=== PATIENT | male | born 1935 | race Caucasian/White ===

== ENCOUNTER 2016-03-11 05:32 | Outpatient (CLI) | payer MEDICARE, OTHER ==
[~2016-03-11] VITALS: Ht 180.3 cm; Wt 90.7 kg
[~2016-03-11 05:32] MED LIST: ASP81TEC PO; CLPD75T PO; DEXT1DRO7 OU; DORZ10DR19 OP; FAMO1TAB PO; GLUC-144 PO; HCT25T PO; HYDR-3812; IBUP-30 PO; LVT.088T PO; MELO-195 PO; METO100T5 PO; METO50TA7 PO; PRAV40TA PO; PRED5DRO17 OD; TERA2CAP13 PO; THYROXINE; TIMO10DR OS; [UNRECOGNIZED DRUG - OTHER] IO; [UNRECOGNIZED DRUG - OTHER] PO
--- OUTSIDE RECORDS SUMMARY | 2016-03-11 05:35 | XMS REPORT | Continuity of Care Document ---
Author Author [facility] Organization [facility] Address Unknown Phone Unavailable Care Team Providers Care Electrical Inspector Name Role Phone DREW MARTINEZ MD PCP Insurance Providers Payer Name Policy Number Subscriber Name Relationship Wps Medicare [id number] José Smith 18 Self / Same As Patient AETNA [id number] José Smith Self / Same As Patient Advance Directives Directive Response Recorded Date/Time Advance Directives Yes 08/25/15 11:45pm Health Care Power of Nuclear Plant Instrument Technician Yes 08/25/15 11:45pm Organ Donor Yes 08/25/15 11:45pm Resuscitation Status Full Code 08/25/15 11:45pm Chief Complaint and Reason for Visit Chief Complaint Eye Problems Reason for Visit [id number] Problems Active Problems Medical Problem Onset Date Status Chronic renal impairment 05/01/2013 Acute Postoperative bleeding from incision Unknown Acute Medications Current Home Medications Medication Dose Units Route Directions Days/Qty Instructions Start Date Terazosin Hcl 2 Mg 2 Mg Oral Daily 10/25/12 Aspirin 81 Mg 81 Mg Oral Daily 10/25/12 Levothyroxine Sodium (Levothroid) 88 Mcg 88 Mcg Oral Daily 04/30/13 Dorzolamide/Timolol 10 Ml 1 Drop Left Eye Twice A Day 04/30/13 Clopidogrel Bisulfate 75 Mg 75 Mg Oral Daily 06/18/13 Metoprolol Succinate (Toprol Xl) 100 Mg 100 Mg Oral Daily 06/18/13 Pravastatin Sodium 40 Mg 40 Mg Oral Daily 04/15/14 Dextran 70/Hypromellose 1 Each 1 Drop Each Eye Four Times Daily as needed for Dry Eyes 01/14/15 Prednisolone Acetate 5 Ml 1 Drop Right Eye Daily 01/21/15 Glucosamine Hcl/Chondr Mooney A Na 1 Each 1 Tab Oral Twice A Day Famotidine/Ca Carb/Mag Hydrox 1 Each 1 Tab.chew Oral Four Times Daily as needed for Indigestion 01/21/15 Hydrocodone/Acetaminophen 1 Each 30 08/26/15 Past Home Medications Medication Directions Ordered Status [L Thyroxine] , 0.05 Mg Daily 10/25/12 Discontinued Hydrochlorothiazide 25 Mg Tablet, 25 Mg Oral Daily 10/25/12 Discontinued Timolol Maleate/Dorzolam Hcl 10 Ml Drops, 10 Ml Ophthalmic 10/25/12 Discontinued Meloxicam (Mobic) 15 Mg Tablet, 1 Each Oral Daily 10/25/12 Discontinued Clopidogrel Bisulfate 75 Mg Tab, 75 Mg Oral Daily 05/01/13 Discontinued Metoprolol Succinate 50 Mg Tab, 50 Mg Oral Daily 05/01/13 Discontinued Ibuprofen 200 Mg Tablet, 400 Mg Oral Daily as needed for Pain 06/18/13 Discontinued [Bio-Richard] , 2 Tab Oral Daily 01/14/15 Discontinued [Prednisolene] , 1 Drop Intraoculr Daily 01/14/15 Discontinued Social History Social History Problem Response Recorded Date/Time Alcohol Use Occasionally Uses 08/25/2015 11:45pm Recreational Drug Use No 08/25/2015 11:45pm Recent Foreign Travel No 08/25/2015 11:57pm Recent Infectious Disease Exposure No 08/25/2015 11:45pm Hospitalization with Isolation Denies 08/25/2015 11:45pm Sexually Transmitted Disease No 08/25/2015 11:45pm HIV/AIDS No 08/25/2015 11:45pm Smoking Status Former Smoker 08/25/2015 11:45pm Do you dip or chew tobacco? No 08/25/2015 11:45pm Query Response Start Date Stop Date Smoking Status Former Smoker 03/06/1989 Hospital Discharge Instructions No hospital discharge instructions. Plan of Care Discharge Date 08/26/15 1:01am Disposition 01 HOME, SELF-CARE Condition at Discharge Improved Instructions/Education Provided NO INSTRUCTIONS GIVEN Prescriptions See Medication Section Referrals DREW MARTINEZ MD - Primary Care Physician Additional Instructions/Education Discontinue aspirin and Plavix until bleeding has completely stopped for at least several hours. Avoid mechanical disruption of the incision to encourage clotting of blood. Continue to use cool packs as previously directed. If bleeding is uncontrolled, apply direct gentle pressure with sterile gauze for 15-30 minutes. Return to care if bleeding is still uncontrolled. All discharge instructions reviewed with patient and/or family. Voiced understanding. Functional Status No functional status results. Allergies, Adverse Reactions, Alerts No known allergies. Immunizations Name Given Type Date of Pneumonia Vaccine 04/16/13 Historical Date of Influenza Vaccine 12/05/14 Historical Vital Signs Acute Vital Signs Vital Response Date/Time Temperature (Fahrenheit) 98.2 degrees F (97.6 - 99.5) 08/25/2015 11:45pm Temperature (Calculated Celsius) 36.78281 degrees C (36.4 - 37.5) 08/25/2015 11:45pm Pulse Rate (adult) 66 bpm (60 - 90) 08/26/2015 1:00am Respiratory Rate 18 bpm (12 - 24) 08/26/2015 1:00am O2 Sat by Pulse Oximetry 97 % (88 - 100) 08/26/2015 1:00am Blood Pressure 150/74 mm Hg 08/26/2015 1:00am Blood Pressure Mean 129 mm Hg 08/25/2015 11:45pm Pain Pain Intensity 0 08/25/2015 11:45pm Height (Feet) 5 feet 08/25/2015 11:45pm Height (Inches) 11 inches 08/25/2015 11:45pm Height (Calculated Centimeters) 180.087339 cm 08/25/2015 11:45pm Weight (Pounds) 180 pounds 08/25/2015 11:45pm Weight (Calculated Kilograms) 81.864096 kilograms 08/25/2015 11:45pm Height 5 ft 11 in Weight 180 lb Body Mass Index 25.1 kg/m^2 Results No known relevant diagnostic tests, laboratory data and/or discharge summary. Procedures No known history of procedures. Encounters Encounter Location Arrival/Admit Date Discharge/Depart Date Attending Provider Registered Emergency Room [facility] 08/25/15 11:58pm MARISOL ROSE MD Recent Diagnosis
== END 2016-03-11 12:26 ==
LOC: PREOP 05:32
PROVIDERS: ATTEND Internal Medicine
DX: Z01.818 Encounter for other preprocedural examination (principal); K92.1 Melena

== ENCOUNTER 2016-03-15 06:44 | Day surgery (SDC) | payer MEDICARE, OTHER ==
[~2016-03-15] VITALS: Ht 180.3 cm; Wt 90.7 kg
--- OUTSIDE RECORDS SUMMARY | 2016-03-15 06:48 | XMS REPORT | Continuity of Care Document ---
Author Author [facility] Organization [facility] Address Unknown Phone Unavailable Care Team Providers Care Hotel Maid Name Role Phone DREW MARTINEZ MD PCP Insurance Providers Payer Name Policy Number Subscriber Name Relationship Wps Medicare [id number] José Smith 18 Self / Same As Patient AETNA [id number] José Smith Self / Same As Patient Advance Directives Directive Response Recorded Date/Time Advance Directives Yes 08/25/15 11:45pm Health Care Power of Iron Plastic Bullet Maker Yes 08/25/15 11:45pm Organ Donor Yes 08/25/15 11:45pm Resuscitation Status Full Code 08/25/15 11:45pm Chief Complaint and Reason for Visit Chief Complaint Eye Problems Reason for Visit [id number] Problems Active Problems Medical Problem Onset Date [...] - 99.5) 08/25/2015 11:45pm Temperature (Calculated Celsius) 36.34106 degrees C (36.4 - 37.5) 08/25/2015 11:45pm [...] 11 inches 08/25/2015 11:45pm Height (Calculated Centimeters) 180.886463 cm 08/25/2015 11:45pm Weight (Pounds) 180 pounds 08/25/2015 11:45pm Weight (Calculated Kilograms) 81.074995 kilograms 08/25/2015 11:45pm Height 5 ft 11 in Weight 180 lb Body Mass Index 25.1 kg/m^2 Results No known relevant diagnostic tests, laboratory data and/or discharge summary. Procedures No known history of procedures. Encounters Encounter Location Arrival/Admit Date Discharge/Depart Date Attending Provider Registered Emergency Room [facility] 08/25/15 11:58pm MARISOL ROSE MD Recent Diagnosis
--- OUTSIDE RECORDS SUMMARY | 2016-03-15 06:48 | XMS REPORT | Continuity of Care Document ---
Author Author [facility] Organization [facility] Address Unknown Phone Unavailable Care Team Providers Care Product Test Engineer Name Role Phone DREW MARTINEZ MD PCP Insurance Providers Payer Name Policy Number Subscriber Name Relationship Wps Medicare [id number] José Smith 18 Self / Same As Patient AETNA [id number] José Smith Self / Same As Patient Advance Directives Directive Response Recorded Date/Time Advance Directives Yes 08/25/15 11:45pm Health Care Power of Glue Cook Yes 08/25/15 11:45pm Organ Donor Yes 08/25/15 11:45pm Resuscitation Status Full Code 08/25/15 11:45pm Chief Complaint and Reason for Visit Chief Complaint Eye Problems Reason for Visit [id number] Problems Active Problems Medical Problem Onset Date [...] - 99.5) 08/25/2015 11:45pm Temperature (Calculated Celsius) 36.96977 degrees C (36.4 - 37.5) 08/25/2015 11:45pm [...] 11 inches 08/25/2015 11:45pm Height (Calculated Centimeters) 180.479689 cm 08/25/2015 11:45pm Weight (Pounds) 180 pounds 08/25/2015 11:45pm Weight (Calculated Kilograms) 81.456819 kilograms 08/25/2015 11:45pm Height 5 ft 11 in Weight 180 lb Body Mass Index 25.1 kg/m^2 Results No known relevant diagnostic tests, laboratory data and/or discharge summary. Procedures No known history of procedures. Encounters Encounter Location Arrival/Admit Date Discharge/Depart Date Attending Provider Registered Emergency Room [facility] 08/25/15 11:58pm MARISOL ROSE MD Recent Diagnosis
--- NOTE | 2016-03-15 06:59 | Pre-Op Note & Conscious Sedat ---
Pre-Operative Progress Note H&P Reviewed The H&P was reviewed, patient examined and no changes noted. Date H&P Reviewed: Mar 15, 2016 Time H&P Reviewed: 06:58 Conscious Sedation Pre-Proced ASA Class: 2 Airway Mallampati Classification: ([place] appropriate class) I. II. III, IV Lungs Heart ASA score ASA 1: a normal healthy patient ASA 2: a patient with a mild systemic disease (mid diabetes, controlled hypertension, obesity ASA 3: a patient with a severe systemic disease that limits activity (angina , COPD, prior Myocardial infarction) ASA 4: a patient with an incapacitating disease that is a constant threat to life (CHF, renal failure) ASA 5: a moribund patient not expected to survive 24 hrs. (ruptured aneurysm) ASA 6: a declared brain patient whose organs are being harvested. For emergent operations, add the letter E after the classification Grade 2 Sedation Plan: Analgesia, Amnesia, Plan communicated to team members, Discussed options with patient/fam, Discussed risks with patient/fam Note The patient is an appropriate candidate to undergo the planned procedure, sedation, and anesthesia. The patient immediately re-assessed prior to indication. MAGDIEL MARTINEZ MD Mar 15, 2016 06:58
[2016-03-15] MEDS ORDERED: D5 LR IV SOLUTION 1,000 ML IV ONE (07:01)
[2016-03-15] MEDS ORDERED: MIDAZOLAM 2 MG/2 ML (VERSED) VIAL ONE ×2 (07:13)
[2016-03-15] MEDS ORDERED: HURRICAINE EXT TUBE (BENZOCAINE) ONE (07:14)
[2016-03-15] MEDS ORDERED: fentaNYL INJECTION 100 MCG/2 ML AMP ONE (07:14)
[2016-03-15] MEDS ORDERED: LIDOCAINE JELLY 2% (XYLOCAINE) 5 ML TUBE ONE (07:14)
[2016-03-15] MEDS ORDERED: NALOXONE 0.4 MG/ML 1 ML (NARCAN) VIAL IVP PRN (08:00)
[2016-03-15] MEDS ORDERED: HURRICAINE EXT TUBE (BENZOCAINE) XX PRN (08:00)
[2016-03-15] MEDS ORDERED: LIDOCAINE JELLY 2% (XYLOCAINE) 5 ML TUBE MM PRN (08:00)
[2016-03-15] MEDS ORDERED: FLUMAZENIL (ROMAZICON) 0.1 MG/ML 5 ML VIAL INJ PRN (08:00)
[2016-03-15] MEDS ORDERED: fentaNYL INJECTION 100 MCG/2 ML AMP IVP PRN (08:00)
[2016-03-15] MEDS ORDERED: D5 LR IV SOLUTION 1,000 ML IV SCH (08:00)
[2016-03-15] MEDS ORDERED: MIDAZOLAM 2 MG/2 ML (VERSED) VIAL IVP PRN (08:00)
[2016-03-15 08:01] VITALS: BP 175/95
[2016-03-15 08:15] VITALS: BP 118/69
[2016-03-15 08:45] VITALS: BP 144/94
[2016-03-15 09:00] VITALS: BP 144/94
--- NOTE | 2016-03-15 10:53 | PROCEDURE REPORT ---
PROCEDURE PHYSICIAN: MAGDIEL MARTINEZ DATE OF PROCEDURE: 03/15/2016 INDICATION FOR THE PROCEDURE: Melena with risk factors for ulceration including ulcerogenic medications Plavix, aspirin and Naprosyn. The patient was placed in the left lateral decubitus position. The endoscope was inserted in the oral cavity and under visualization the esophagus was intubated. The scope was passed down the esophagus, stomach, and second portion of the duodenum. Careful inspection was made as the endoscope was withdrawn. The patient tolerated the procedure well. FINDINGS: The proximal and midesophagus were unremarkable. The distal esophagus was proximally placed at 37 cm secondary to a small to moderate size hiatal hernia. Erythema was noted at the Z line with arcuate blood vessel dilatation, but no evidence for erosive esophagitis was noted. No evidence to suggest Rivers's change was noted. Considering his advanced age and medical comorbidities and biopsies from this location were not obtained. The cardia was unremarkable. Present in the fundus and antrum were patchy areas of erythema most suggestive of nonsteroidal gastropathy. No ulcerations were noted. A biopsy was obtained and submitted for Helicobacter and histopathology evaluation. The pylorus, the pyloric channel were unremarkable. Patchy areas of duodenal erythema without evidence for erosion or ulceration were noted. The second portion of the duodenum was unremarkable. No blood was noted in the upper GI tract but the patient had been off of aspirin and Plavix and Aleve for the past 5 days. ASSESSMENT: 1. 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 Considering that it has now been almost 3 years since his stent placement to reduce future risk for bleeding it was advised that the patient discontinue Plavix and discuss this further with his mine patrol. He was advised to abstain from nonsteroidal medication as well, and continue to monitor his stools. 2. Mild to moderate sized hiatal hernia without evidence for erosive esophagitis. Because of the need for ongoing aspirin considering the patient's age and frailty, he was advised that he take Pepcid 20 mg b.i.d. on a scheduled basis.Currently he takes it on a Prn basis In one week. I will set up IFOB stool screening. If it is positive on this regimen, we will then set up colonoscopy in the near future. If it is negative again considering age, performance status and medical comorbidity, we will hold off on colonoscopy recommendation. I thank you for the referral of this pleasant gentleman. Sincerely, Magdiel Martinez Job ID: [id number] Dictated Date: 03/15/2016 08:11:25 Switchbox Assembler Date: 03/15/2016 10:38:27 / юлия FREED
--- NOTE | 2016-03-15 10:56 | HISTORY AND PHYSICAL ---
DICTATING PHYSICIAN: Dr. Mckeon DATE OF ADMISSION: 03/15/2016 REFERRING PHYSICIAN: Dr. Baldwin INDICATION FOR THE REFERRAL: Melena Mr. Manjarrez is a 79-year-old white male who reports a 2 week history of intermittent melena. There were two says when it cleared up but then it resumed. He denies chest discomfort, dizziness, increased weakness and has noted no bright red blood per rectum. Risk factors for ulcer disease include aspirin and Plavix initiated in April 2013 after stent placement to proximal LAD lesion. He had repeat cardiac catheterization 2 months later for chest discomfort, but the stent was widely patent with only mild disease being noted elsewhere so medical management has persisted since that time with no recurrence of acute coronary syndrome. He was seen in Dr. Baldwin's office where a CBC was obtained. His hemoglobin was normal at 14 but stool was occult positive for blood. Additional history; he has been taking Aleve for leg pain for the past 2 months. PAST MEDICAL HISTORY: 1. Long-standing peripheral neuropathy. 2. He has a history of hyperlipidemia. 3. No known history of hypertension. 4. He is on thyroid replacement for hypothyroidism. 5. History of prostatism. MEDICATIONS: 1. Tamsulosin 0.4 mg the evening meal. 2. L-thyroxine 80 mcg daily. 3. 81 mg aspirin daily. 4. Clopidogrel 75 mg daily. 5. Metoprolol ER 100 mg daily. 6. Pravastatin 40 mg daily. 7. Aleve 220 mg b.i.d. 8. Lyrica 75 mg b.i.d. 9. He takes dorzolamide one drop each eye b.i.d. 10. Lotemax one drop right eye daily with artificial tears. PAST SURGICAL HISTORY: 1. Significant for left total knee replacement [place] [address] Cotto. 2. He had mastoidectomy 30 years ago. 3. Many years ago, had an episode of left endophthalmitis. 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 He had a 40 pack-year smoking history but quit in 1989 and reports rare social alcohol intake. In the past when working it had been heavier, but denies any history of alcohol use disorder. I had previously performed panendoscopy on him 10 years ago in March 2006. He had 2 small adenomatous polyps at that time and on EGD evaluation a small to moderate size hiatal hernia without evidence for erosive esophagitis or peptic ulcer disease at that time. FAMILY HISTORY: He is not aware of any family history for colon cancer or colon polyps or peptic ulcer disease. PHYSICAL EXAMINATION: Reveals an elderly white male, who appears to be in no acute distress. Blood pressure was 140/82, heart rate was 66 and regular. Weight at 201.6 pounds. 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 NECK: Revealed no JVD, adenopathy or bruits. He is a Mallampati class I pharyngeal configuration. Oral cavity and pharynx are clear. CHEST: Clear. CV: Reveals regular rate and rhythm without murmur, S3 or S4, although the heart tones are somewhat distant. ABDOMEN: Soft, supple without masses, organomegaly or tenderness. EXTREMITIES: Reveal no cyanosis, clubbing, or edema. ASSESSMENT: Melena confirmed by occult positive stool studies without anemia or hemodynamic instability at this time. He clearly has risk factors for silent ulcer disease including aspirin, Plavix and Aleve usage. As it has been nearly 3 years since his first and only cardiac stent placement, it was advised that he discontinue these 3 medications continuing his other medications unchanged. He was set-up for EGD on the with possible colonoscopy to follow. Prep instructions and questions were answered. Currently coronary artery disease, appears to be stable. In patient evaluation today a review of the electronic medical record, 45 minutes of care time was spent by myself with another 15 minutes of care time setting up EGD and undergoing prep instructions writing out instructions on medication discontinuance starting today as noted above. Resumption of antiplatelet therapy timing will be discussed after EGD evaluation. Thank you for the referral this pleasant gentleman. Sincerely, Rohan cMkeon Job ID: [id number] Dictated Date: 03/10/2016 17:53:00 Radiator Mechanic Date: 03/11/2016 10:41:39/юлия FREED
== END 2016-03-15 09:00 | disposition home or self-care (01) ==
LOC: SDC 06:44
PROVIDERS: ATTEND Internal Medicine
DX: K92.1 Melena (principal); K44.9 Diaphragmatic hernia without obstruction or gangrene; Z79.02 Long term (current) use of antithrombotics/antiplatelets; Z79.82 Long term (current) use of aspirin

== ENCOUNTER → 2016-08-02 | Outpatient (CLI) | payer MEDICARE, OTHER ==
--- NOTE | 2016-08-02 17:19 | Diagnostic Imaging Report ---
INDICATION: Difficulty walking. Bilateral leg pain. COMPARISON: None. FINDINGS: Static alignment of the thoracic spine is maintained. There is no significant anterolisthesis or retrolisthesis. There is no evidence of jumped facets. Vertebral body heights are maintained. There is no evidence of acute fracture. Evaluation of marrow signal demonstrates probable hemangioma within the inferior endplate of the T10 vertebral body. Otherwise, marrow signal is unremarkable. There is multilevel intervertebral disc height loss with anterior and posterior disc osteophyte complex formations. This does result in mild multilevel narrowing of the spinal canal. Thoracic cord, however, has normal appearance. There is no evidence of cord edema. No abnormal intrathecal filling defects are seen. There is a small T2 dark focus within the superior pole of the right kidney that measures approximately 5 mm. Otherwise, prevertebral and paravertebral soft tissue structures are unremarkable. Axial images demonstrate multiple levels of mild disc bulging and focal posterior protrusions. These changes are greatest at the C5-C6 level. This results in mild narrowing of the spinal canal and flattening of the cord. Again, however, there is otherwise no significant spinal canal stenosis. No significant neuroforaminal stenosis is identified throughout. IMPRESSION: 1. Mild multilevel degenerative changes of the thoracic spine, but no significant spinal canal or neuroforaminal stenosis. 2. No acute fracture or dislocation of the thoracic spine. 3. Small 5 mm T2 dark focus within the superior pole of the right kidney. Findings could be on the basis of hemorrhagic cyst, although is incompletely characterized on this exam. If further evaluation is desired, pre and postcontrast CT abdomen is recommended. Dictated by: Dictated on workstation # [id number]
--- NOTE | 2016-08-02 17:34 | Diagnostic Imaging Report ---
PROCEDURE: MR imaging cervical spine without contrast. TECHNIQUE: Multiplanar, multisequence MR imaging of the cervical spine was performed without contrast. INDICATION: Difficulty walking since neck replacement. Neck pain. FINDINGS: There is reversal of the lordotic curvature in the upper cervical spine. There is posterior translation of C4 over C5, C5 over C6 and of C6 over C7 levels. This is associated with moderate to severe disc height loss at these three levels. The vertebral body heights are preserved. There is prominent endplate Modic type reactive marrow changes around these discs. There is otherwise no suspicious marrow lesion identified. The foramen magnum and upper cervical canal are widely patent. C2/3: No disc herniation, and no spinal canal stenosis. There is moderate foraminal stenosis on the left. C3/4: There is a disc spur complex with no central spinal canal stenosis. There is slight narrowing of the AP dimension of the canal along the right side of the canal however which appears to have a minimal impression upon the anterior margin of the spinal cord on the right side. No cord signal abnormality. Prominent uncovertebral and to lesser extent facet joint arthropathy results in bilateral severe foraminal stenosis. C4/5: There is a prominent disc spur complex asymmetric to the right. It is associated with severe spinal canal stenosis reducing the AP dimension of the canal to 6.9 mm with worse narrowing around the right side of the spinal canal and associated mild cord compression. No cord signal abnormality. The foramina demonstrate severe stenosis on the right and moderate to severe stenosis on the left. C5/6: There is a disc spur complex seen associated with severe spinal canal stenosis reducing the AP dimension of the canal to 4.9 mm with associated moderate to severe spinal cord compression. No cord signal abnormality is seen. There is bilateral severe foraminal stenosis. C6/7: There is a prominent disc spur complex associated with severe spinal canal stenosis reducing the AP dimension of the canal to 6 mm and associated with moderate spinal cord compression. The foramina demonstrate severe stenosis bilaterally. C7/T1: No disc herniation, no spinal canal or foraminal stenosis. IMPRESSION: There is mild posterior translation of C4 over C5, C5 over C6 and C6 over C7 levels. These levels also demonstrate disc herniations associated with spinal canal stenosis and cord compression, worst at C5/6. There is also multilevel severe neural foraminal stenosis. Report faxed to Dr. Vizcarra at 5:35 p.m. 08/02/2016/cb Dictated by: Dictated on workstation # [id number]
== END ==
LOC: RAD 15:57
PROVIDERS: ATTEND Orthopaedic Surgery
DX: M54.6 Pain in thoracic spine (principal); M48.02 Spinal stenosis, cervical region; M50.20 Other cervical disc displacement, unspecified cervical region
CPT/HCPCS: 72141; 72146

== ENCOUNTER → 2016-12-13 | Outpatient (CLI) | payer MEDICARE, OTHER | LOC: RAD 12:58 | PROVIDERS: ATTEND Internal Medicine Cardiovascular Disease | DX: I65.23 Occlusion and stenosis of bilateral carotid arteries (principal); I25.10 Atherosclerotic heart disease of native coronary artery without angina pectoris; E78.4 Other hyperlipidemia; I12.9 Hypertensive chronic kidney disease with stage 1 through stage 4 chronic kidney disease, or unspecified chronic kidney disease; N18.3 Chronic kidney disease, stage 3 (moderate) | CPT/HCPCS: 93923 ==

== ENCOUNTER 2017-07-10 09:56 | Inpatient (IN) | payer MEDICARE, OTHER ==
[~2017-07-10] VITALS: Ht 180.3 cm; Wt 83.6 kg
[~2017-07-10 09:56] MED LIST changes: +ACETAMINOPHEN 325 MG TABLET/CAPLET (TYLENOL) PO PRN; +ACHD5005; +ASPI-999 PEG; +DOCUSATE SODIUM 100 MG (COLACE) CAP PO PRN; +DORZ10DR18 OU; +FAMO-119 PEG; +GLYC30DR4 OU; -HYDR-3812; +HYDROcodone/APAP 5 MG/325 MG (LORTAB) TAB PO PRN; +LEVO88TA54 PEG; +METO-395 PEG; +MILK OF MAGNESIA 400 MG/5 ML 30 ML UDC PO PRN; +NAPR220T66 PO; +PRAV40TA2 PO; +PROMETHAZINE 25 MG (PHENERGAN) TAB PO PRN; +TAMS0.4C2 PO; +ceFAZolin 2 GM IV Premixed 50 ML IV ONE
--- OUTSIDE RECORDS SUMMARY | 2017-07-10 10:10 | XMS REPORT | Continuity of Care Document ---
Author Author [facility] Organization [facility] Address Unknown Phone Unavailable Allergies Active Description Code Type Severity Reaction Onset Reported/Identified Relationship to Patient Clinical Status Yes No Known Drug Allergies [id number] Drug Allergy Unknown N/A 10/25/2012 Medications There is no data. 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[place] 05/01/2013 ANDREW ASTORGA FACC ALI FACP CCDS Ot 585.9 CHRONIC KIDNEY DISEASE, UNSPECIFIED 05/01/2013 KEZIA MORALES MD, FACC FACP CCDS Ot V58.69 OT MED,LT,CURRENT USE 06/19/2013 ANDREW ASTORGA FACC ALI FACP CCDS Ot 272.4 HYPERLIPIDEMIA NEC/NOS 06/19/2013 ANDREW ASTORGA FACC ALI FACP CCDS Ot 285.9 ANEMIA NOS 06/19/2013 KEZIA MORALES MD, FACC FACP CCDS Ot 365.9 GLAUCOMA NOS 06/19/2013 ANDREW ASTORGA FACC ALI FACP CCDS Ot 403.90 HYPTNSV CHR KID DIS, UNSPEC, W CHR KD ST 06/19/2013 ANDREW ASTORGA FACC ALI FACP CCDS Ot 414.01 CORONARY ATHEROSCLEROSIS OF [place] CORON 06/19/2013 ANDREW ASTORGA FACC ALI FACP CCDS Ot 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 [place] 06/19/2013 ANDREW ASTORGA FACC, KEZIA FACP CCDS Ot 426.4 RT BUNDLE BRANCH BLOCK 06/19/2013 ANDREW ASTORGA FACC, KEZIA FACP CCDS Ot 585.3 CHRONIC KIDNEY DISEASE, STAGE III (MODER 06/19/2013 ANDREW ASTORGA FACC, KEZIA FACP CCDS Ot 786.59 CHEST PAIN NEC 06/19/2013 ANDREW ASTORGA FACC, KEZIA FACP CCDS Ot V15.82 HISTORY OF TOBACCO USE 06/19/2013 ANDREW ASTORGA FACC, KEZIA FACP CCDS Ot V45.82 PERCUTANEOUS TRANSLUM CORON ANGIOPLASTY 06/19/2013 ANDREW ASTORGA FACC, KEZIA FACP CCDS Ot V58.63 LONG-TERM(CURRENT)USE OF ANTIPLATELET/AN 06/19/2013 ANDREW ASTORGA FACC, [facility] CCDS Ot V58.69 OTH MED,LT,CURRENT USE 01/24/2015 AME RODRIGEZ MD Ot D62 ACUTE POSTHEMORRHAGIC ANEMIA 01/24/2015 AME RODRIGEZ MD Ot E78.0 PURE HYPERCHOLESTEROLEMIA 01/24/2015 AME RODRIGEZ MD Ot I10 ESSENTIAL (PRIMARY) HYPERTENSION 01/24/2015 AME RODRIGEZ MD Ot M17.12 UNILATERAL PRIMARY OSTEOARTHRITIS, LEFT 01/24/2015 AME RODRIGEZ MD Ot Z87.891 PERSONAL HISTORY OF NICOTINE DEPENDENCE 02/04/2015 AME RODRIGEZ MD Ot M17.12 02/04/2015 AME RODRIGEZ MD Ot R53.83 02/04/2015 AME RODRIGEZ MD Ot Z01.810 02/04/2015 AME RODRIGEZ MD P Ot Z01.811 02/04/2015 AME RODRIGEZ MD Ot Z01.812 02/04/2015 AME RODRIGEZ MD Ot Z11.2 07/15/2015 AME RODRIGEZ MD Ot M48.07 SPINAL STENOSIS, LUMBOSACRAL REGION 07/15/2015 AME RODRIGEZ MD Ot Z48.89 ENCOUNTER FOR OTHER SPECIFIED SURGICAL A 08/11/2015 AME RODRIGEZ MD Ot M48.07 SPINAL STENOSIS, LUMBOSACRAL REGION 08/11/2015 AME RODRIGEZ MD Ot Z48.89 ENCOUNTER FOR OTHER SPECIFIED SURGICAL A 08/26/2015 ANDREW ASTORGA FACC, ALI FACP CCDS Ot 785.2 CARDIAC MURMURS NEC 08/26/2015 ANDREW ASTORGA FACMercedes, ALI FACP CCDS Ot 786.59 CHEST PAIN NEC 08/26/2015 ANDREW ASTORGA FACMercedes, ALI FACP CCDS Ot 785.2 CARDIAC MURMURS NEC 08/26/2015 ANDREW ASTORGA FACMercedes, ALI FACP CCDS Ot 786.59 CHEST PAIN NEC 08/26/2015 DREW MARTINEZ MD Ot 715.36 LOC OSTEOARTH NOS-L/LEG 08/26/2015 DREW MARTINEZ MD Ot 719.46 JOINT PAIN-L/LEG 08/26/2015 RAIN ASTORGA, AME Herbert Ot M17.12 UNILATERAL PRIMARY OSTEOARTHRITIS, LEFT 08/26/2015 RAIN ASTORGA, AME Herbert Ot R53.83 OTHER FATIGUE 08/26/2015 AME RODRIGEZ MD Ot Z01.810 ENCOUNTER FOR PREPROCEDURAL CARDIOVASCUL 08/26/2015 AME RODRIGEZ MD Ot Z01.811 ENCOUNTER FOR PREPROCEDURAL RESPIRATORY 08/26/2015 AME RODRIGEZ MD Ot Z01.812 ENCOUNTER FOR PREPROCEDURAL LABORATORY E 08/26/2015 AME RODRIGEZ MD Ot Z11.2 ENCOUNTER FOR SCREENING FOR OTHER BACTER 08/26/2015 AME RODRIGEZ MD Ot M48.07 SPINAL STENOSIS, LUMBOSACRAL REGION 08/26/2015 AME RODRIGEZ MD Ot Z48.89 ENCOUNTER FOR OTHER SPECIFIED SURGICAL A 08/26/2015 MRAISOL ROSE MD Ot H59.313 POSTPROC HEMOR/HEMTOM OF EYE AND ADNEXA 08/26/2015 MARISOL ROSE MD Ot H59.313 POSTPROC HEMOR/HEMTOM OF EYE AND ADNEXA 10/16/2015 ANDREW ASTORGA FACC, KEZIA FACP CCDS Ot 785.2 CARDIAC MURMURS NEC 10/16/2015 ANDREW ASTORGA FACC, KEZIA FACP CCDS Ot 786.59 CHEST PAIN NEC 10/16/2015 ANDREW FERREIRAC, ALI FACP CCDS Ot 785.2 CARDIAC MURMURS NEC 10/16/2015 ANDREW ASTORGA FACC, ALI FACP CCDS Ot 786.59 CHEST PAIN NEC 10/16/2015 DREW MARTINEZ MD Ot 715.36 LOC OSTEOARTH NOS-L/LEG 10/16/2015 DREW MARTINEZ MD Ot 719.46 JOINT PAIN-L/LEG 10/16/2015 AME RODRIGEZ MD Ot M17.12 UNILATERAL PRIMARY OSTEOARTHRITIS, LEFT 10/16/2015 RAIN ASTORGA, AME Herbert Ot R53.83 OTHER FATIGUE 10/16/2015 RAIN ASTORGA, AME Herbert Ot Z01.810 ENCOUNTER FOR PREPROCEDURAL CARDIOVASCUL 10/16/2015 AME RODRIGEZ MD Ot Z01.811 ENCOUNTER FOR PREPROCEDURAL RESPIRATORY 10/16/2015 AME RODRIGEZ MD Ot Z01.812 ENCOUNTER FOR PREPROCEDURAL LABORATORY E 10/16/2015 AME RODRIGEZ MD Ot Z11.2 ENCOUNTER FOR SCREENING FOR OTHER BACTER 10/16/2015 AME RODRIGEZ MD Ot M48.07 SPINAL STENOSIS, LUMBOSACRAL REGION 10/16/2015 AME RODRIGEZ MD Ot Z48.89 ENCOUNTER FOR OTHER SPECIFIED SURGICAL A 10/19/2015 CHANCE CARRENO REAL ESTATE UTILIZATION OFFICER Ot E78.4 OTHER HYPERLIPIDEMIA 10/19/2015 CHANCE CARRENO REAL ESTATE UTILIZATION OFFICER Ot I10 ESSENTIAL (PRIMARY) HYPERTENSION 10/19/2015 CHANCE CARRENO REAL ESTATE UTILIZATION OFFICER Ot I25.10 ATHSCL HEART DISEASE OF [place] CORONARY 10/19/2015 CHANCE CARRENO REAL ESTATE UTILIZATION OFFICER Ot 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 10/19/2015 ANDREW ASTORGA FACC, KEZIA FACP CCDS Ot 785.2 CARDIAC MURMURS NEC 10/19/2015 ANDREW ASTORGA FACC, KEZIA FACP CCDS Ot 786.59 CHEST PAIN NEC 10/19/2015 ANDREW ASTORGA FACC, ALI FACP CCDS Ot 785.2 CARDIAC MURMURS NEC 10/19/2015 ANDREW ASTORGA FACC, KEZIA FACP CCDS Ot 786.59 CHEST PAIN NEC 10/19/2015 DREW MARTINEZ MD Ot 715.36 LOC OSTEOARTH NOS-L/LEG 10/19/2015 DREW MARTINEZ MD Ot 719.46 JOINT PAIN-L/LEG 10/19/2015 AME RODRIGEZ MD Ot M17.12 UNILATERAL PRIMARY OSTEOARTHRITIS, LEFT 10/19/2015 RAIN ASTORGA, AME Herbert Ot R53.83 OTHER FATIGUE 10/19/2015 RAIN ASTORGA, AME Herbert Ot Z01.810 ENCOUNTER FOR PREPROCEDURAL CARDIOVASCUL 10/19/2015 RAIN ASTORGA, AME Herbert Ot Z01.811 ENCOUNTER FOR PREPROCEDURAL RESPIRATORY 10/19/2015 RAIN ASTORGA, AME Herbert Ot Z01.812 ENCOUNTER FOR PREPROCEDURAL LABORATORY E 10/19/2015 RAIN ASTORGA, AME Herbert Ot Z11.2 ENCOUNTER FOR SCREENING FOR OTHER BACTER 10/19/2015 RAIN ASTORGA, AME Herbert Ot M48.07 SPINAL STENOSIS, LUMBOSACRAL REGION 10/19/2015 RAIN ASTORGA, AME Herbert Ot Z48.89 ENCOUNTER FOR OTHER SPECIFIED SURGICAL A 10/19/2015 BAIMA, CHANCE L REAL ESTATE UTILIZATION OFFICER Ot E78.4 OTHER HYPERLIPIDEMIA 10/19/2015 BAIMA, CHANCE L REAL ESTATE UTILIZATION OFFICER Ot I10 ESSENTIAL (PRIMARY) HYPERTENSION 10/19/2015 FLAKOMA, CHANCE L REAL ESTATE UTILIZATION OFFICER Ot I25.10 ATHSCL HEART DISEASE OF [place] CORONARY 10/19/2015 BAIMA, CHANCE L REAL ESTATE UTILIZATION OFFICER Ot 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 10/19/2015 BAIMA, CHANCE L REAL ESTATE UTILIZATION OFFICER Ot I25.10 ATHSCL HEART DISEASE OF [place] CORONARY 10/19/2015 BAIMA, CHANCE L REAL ESTATE UTILIZATION OFFICER Ot E78.4 OTHER HYPERLIPIDEMIA 10/19/2015 BAIMA, CHANCE L REAL ESTATE UTILIZATION OFFICER Ot I10 ESSENTIAL (PRIMARY) HYPERTENSION 10/19/2015 BAIMA, CHANCE L REAL ESTATE UTILIZATION OFFICER Ot I25.10 ATHSCL HEART DISEASE OF [place] CORONARY 10/19/2015 BAIMA, CHANCE L REAL ESTATE UTILIZATION OFFICER Ot 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 10/20/2015 BAIMA, CHANCE L REAL ESTATE UTILIZATION OFFICER Ot I25.10 ATHSCL HEART DISEASE OF [place] CORONARY 10/21/2015 BAIMA, CHANCE L REAL ESTATE UTILIZATION OFFICER Ot E78.4 OTHER HYPERLIPIDEMIA 10/21/2015 BAIMA, CHANCE L REAL ESTATE UTILIZATION OFFICER Ot I10 ESSENTIAL (PRIMARY) HYPERTENSION 10/21/2015 BAIMA, CHANCE L REAL ESTATE UTILIZATION OFFICER Ot I25.10 ATHSCL HEART DISEASE OF [place] CORONARY 10/21/2015 BAIMA, CHANCE L REAL ESTATE UTILIZATION OFFICER Ot 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 10/23/2015 BAICHANCE FUNG Mary REAL ESTATE UTILIZATION OFFICER Ot E78.4 OTHER HYPERLIPIDEMIA 10/23/2015 FLAKOCHANCE FUNG L REAL ESTATE UTILIZATION OFFICER Ot I10 ESSENTIAL (PRIMARY) HYPERTENSION 10/23/2015 FLAKOCHANCE FUNG L REAL ESTATE UTILIZATION OFFICER Ot I25.10 ATHSCL HEART DISEASE OF [place] CORONARY 10/23/2015 CHANCE CARRENO REAL ESTATE UTILIZATION OFFICER Ot 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 10/27/2015 ANDREW ASTORGA FACC, ALI FACP CCDS Ot 785.2 CARDIAC MURMURS NEC 10/27/2015 ANDREW ASTORGA FACC, ALI FACP CCDS Ot 786.59 CHEST PAIN NEC 10/27/2015 ANDREW ASTORGA FACC, ALI FACP CCDS Ot 785.2 CARDIAC MURMURS NEC 10/27/2015 ANDREW ASTORGA FACC, ALI FACP CCDS Ot 786.59 CHEST PAIN NEC 10/27/2015 DREW MARTINEZ MD Ot 715.36 LOC OSTEOARTH NOS-L/LEG 10/27/2015 DREW MARTINEZ MD Ot 719.46 JOINT PAIN-L/LEG 10/27/2015 AME RODRIGEZ MD Ot M17.12 UNILATERAL PRIMARY OSTEOARTHRITIS, LEFT 10/27/2015 AME RODRIGEZ MD Ot R53.83 OTHER FATIGUE 10/27/2015 AME RODRIGEZ MD Ot Z01.810 ENCOUNTER FOR PREPROCEDURAL CARDIOVASCUL 10/27/2015 AME RODRIGEZ MD Ot Z01.811 ENCOUNTER FOR PREPROCEDURAL RESPIRATORY 10/27/2015 AME RODRIGEZ MD Ot Z01.812 ENCOUNTER FOR PREPROCEDURAL LABORATORY E 10/27/2015 AME RODRIGEZ MD Ot Z11.2 ENCOUNTER FOR SCREENING FOR OTHER BACTER 10/27/2015 AME RODRIGEZ MD Ot M48.07 SPINAL STENOSIS, LUMBOSACRAL REGION 10/27/2015 AME RODRIGEZ MD Ot Z48.89 ENCOUNTER FOR OTHER SPECIFIED SURGICAL A 10/27/2015 CHANCE CARRENO REAL ESTATE UTILIZATION OFFICER Ot E78.4 OTHER HYPERLIPIDEMIA 10/27/2015 FLAKOCHANCE FUNG Mary REAL ESTATE UTILIZATION OFFICER Ot I10 ESSENTIAL (PRIMARY) HYPERTENSION 10/27/2015 WAI CHANCE L REAL ESTATE UTILIZATION OFFICER Ot I25.10 ATHSCL HEART DISEASE OF [place] CORONARY 10/27/2015 CHANCE CARRENO REAL ESTATE UTILIZATION OFFICER Ot 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 10/27/2015 CHANCE CARRENO REAL ESTATE UTILIZATION OFFICER Ot E78.4 OTHER HYPERLIPIDEMIA 10/27/2015 BAICHANCE FUNG L REAL ESTATE UTILIZATION OFFICER Ot I10 ESSENTIAL (PRIMARY) HYPERTENSION 10/27/2015 CHANCE CARRENO REAL ESTATE UTILIZATION OFFICER Ot I25.10 ATHSCL HEART DISEASE OF [place] CORONARY 10/27/2015 CHANCE CARRENO REAL ESTATE UTILIZATION OFFICER Ot 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 10/27/2015 ANDREW ASTORGA FACC, ALI FACP CCDS Ot 785.2 CARDIAC MURMURS NEC 10/27/2015 ANDREW ASTORGA FACC, ALI FACP CCDS Ot 786.59 CHEST PAIN NEC 10/27/2015 ANDREW ASTORGA FACC, ALI FACP CCDS Ot 785.2 CARDIAC MURMURS NEC 10/27/2015 ANDREW ASTORGA FACC, ALI FACP CCDS Ot 786.59 CHEST PAIN NEC 10/27/2015 DREW MARTINEZ MD Ot 715.36 LOC OSTEOARTH NOS-L/LEG 10/27/2015 DREW MARTINEZ MD Ot 719.46 JOINT PAIN-L/LEG 10/27/2015 AME RODRIGEZ MD Ot M17.12 UNILATERAL PRIMARY OSTEOARTHRITIS, LEFT 10/27/2015 AME RODRIGEZ MD Ot R53.83 OTHER FATIGUE 10/27/2015 AME RODRIGEZ MD Ot Z01.810 ENCOUNTER FOR PREPROCEDURAL CARDIOVASCUL 10/27/2015 AME RODRIGEZ MD Ot Z01.811 ENCOUNTER FOR PREPROCEDURAL RESPIRATORY 10/27/2015 AME RODRIGEZ MD Ot Z01.812 ENCOUNTER FOR PREPROCEDURAL LABORATORY E 10/27/2015 AME RODRIGEZ MD Ot Z11.2 ENCOUNTER FOR SCREENING FOR OTHER BACTER 10/27/2015 AME RODRIGEZ MD Ot M48.07 SPINAL STENOSIS, LUMBOSACRAL REGION 10/27/2015 AME RODRIGEZ MD Ot Z48.89 ENCOUNTER FOR OTHER SPECIFIED SURGICAL A 10/27/2015 WAICHANCE Mary REAL ESTATE UTILIZATION OFFICER Ot E78.4 OTHER HYPERLIPIDEMIA 10/27/2015 FLAKOCHANCE FUNG L REAL ESTATE UTILIZATION OFFICER Ot I10 ESSENTIAL (PRIMARY) HYPERTENSION 10/27/2015 WAI, CHANCE L REAL ESTATE UTILIZATION OFFICER Ot I25.10 ATHSCL HEART DISEASE OF [place] CORONARY 10/27/2015 BAIMACHANCE L REAL ESTATE UTILIZATION OFFICER Ot 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 10/27/2015 BAIMA, CHANCE L REAL ESTATE UTILIZATION OFFICER Ot E78.4 OTHER HYPERLIPIDEMIA 10/27/2015 BAIMA, CHANCE L REAL ESTATE UTILIZATION OFFICER Ot I10 ESSENTIAL (PRIMARY) HYPERTENSION 10/27/2015 BAIMA, CHANCE L REAL ESTATE UTILIZATION OFFICER Ot I25.10 ATHSCL HEART DISEASE OF [place] CORONARY 10/27/2015 BAIMA, CHANCE L REAL ESTATE UTILIZATION OFFICER Ot 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 11/06/2015 BAIMA CHANCE L REAL ESTATE UTILIZATION OFFICER Ot E78.4 OTHER HYPERLIPIDEMIA 11/06/2015 BAIMA, CHANCE L REAL ESTATE UTILIZATION OFFICER Ot I10 ESSENTIAL (PRIMARY) HYPERTENSION 11/06/2015 BAIMA, CHANCE L REAL ESTATE UTILIZATION OFFICER Ot I25.10 ATHSCL HEART DISEASE OF [place] CORONARY 11/06/2015 BAIMA CHANCE L REAL ESTATE UTILIZATION OFFICER Ot 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 11/13/2015 BAIMA CHANCE L REAL ESTATE UTILIZATION OFFICER Ot E78.4 OTHER HYPERLIPIDEMIA 11/13/2015 BAIMA, CHANCE L REAL ESTATE UTILIZATION OFFICER Ot I10 ESSENTIAL (PRIMARY) HYPERTENSION 11/13/2015 BAIMA, CHANCE L REAL ESTATE UTILIZATION OFFICER Ot I25.10 ATHSCL HEART DISEASE OF [place] CORONARY 11/13/2015 BAIMAYARIELCHANCE L REAL ESTATE UTILIZATION OFFICER Ot 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 11/19/2015 ANDREW ASTORGA FACMercedes, KEZIA FACP CCDS Ot 785.2 CARDIAC MURMURS NEC 11/19/2015 ANDREW ASTORGA FACC, ALI FACP CCDS Ot 786.59 CHEST PAIN NEC 11/19/2015 ANDREW ASTORGA FACC, ALI FACP CCDS Ot 785.2 CARDIAC MURMURS NEC 11/19/2015 ANDREW ASTORGA FACC, ALI FACP CCDS Ot 786.59 CHEST PAIN NEC 11/19/2015 DREW MARTINEZ MD Ot 715.36 LOC OSTEOARTH NOS-L/LEG 11/19/2015 DREW MARTINEZ MD Ot 719.46 JOINT PAIN-L/LEG 11/19/2015 RAIN ASTORGA, AME Herbert Ot M17.12 UNILATERAL PRIMARY OSTEOARTHRITIS, LEFT 11/19/2015 AME RODRIGEZ MD Ot R53.83 OTHER FATIGUE 11/19/2015 RAIN ASTORGA, AME Herbert Ot Z01.810 ENCOUNTER FOR PREPROCEDURAL CARDIOVASCUL 11/19/2015 RAIN ASTORGA, AEM Herbert Ot Z01.811 ENCOUNTER FOR PREPROCEDURAL RESPIRATORY 11/19/2015 RAIN ASTORGA, AME Herbert Ot Z01.812 ENCOUNTER FOR PREPROCEDURAL LABORATORY E 11/19/2015 RAIN ASTORGA, AME Herbert Ot Z11.2 ENCOUNTER FOR SCREENING FOR OTHER BACTER 11/19/2015 RAIN ASTORGA, AME Herbert Ot M48.07 SPINAL STENOSIS, LUMBOSACRAL REGION 11/19/2015 RAIN ASTORGA, AME Herbert Ot Z48.89 ENCOUNTER FOR OTHER SPECIFIED SURGICAL A 11/19/2015 BAIMA, CHANCE L REAL ESTATE UTILIZATION OFFICER Ot E78.4 OTHER HYPERLIPIDEMIA 11/19/2015 BAIMA, CHANCE L REAL ESTATE UTILIZATION OFFICER Ot I10 ESSENTIAL (PRIMARY) HYPERTENSION 11/19/2015 BAIMA, CHANCE L REAL ESTATE UTILIZATION OFFICER Ot I25.10 ATHSCL HEART DISEASE OF [place] CORONARY 11/19/2015 BAIMA, CHANCE L REAL ESTATE UTILIZATION OFFICER Ot 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 11/19/2015 BAIMA, CHANCE L REAL ESTATE UTILIZATION OFFICER Ot E78.4 OTHER HYPERLIPIDEMIA 11/19/2015 BAIMA, CHANCE L REAL ESTATE UTILIZATION OFFICER Ot I10 ESSENTIAL (PRIMARY) HYPERTENSION 11/19/2015 BAIMA, CHANCE L REAL ESTATE UTILIZATION OFFICER Ot I25.10 ATHSCL HEART DISEASE OF [place] CORONARY 11/19/2015 BAIMA, CHANCE L REAL ESTATE UTILIZATION OFFICER Ot 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 11/20/2015 BAIMA, CHANCE L REAL ESTATE UTILIZATION OFFICER Ot E78.4 OTHER HYPERLIPIDEMIA 11/20/2015 BAIMA, CHANCE L REAL ESTATE UTILIZATION OFFICER Ot I10 ESSENTIAL (PRIMARY) HYPERTENSION 11/20/2015 BAIMA, CHANCE L REAL ESTATE UTILIZATION OFFICER Ot I25.10 ATHSCL HEART DISEASE OF [place] CORONARY 11/20/2015 BAIMA, CHANCE L REAL ESTATE UTILIZATION OFFICER Ot 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 11/23/2015 BAIMA, CHANCE L REAL ESTATE UTILIZATION OFFICER Ot E78.4 OTHER HYPERLIPIDEMIA 11/23/2015 BAIMA, CHANCE L REAL ESTATE UTILIZATION OFFICER Ot I10 ESSENTIAL (PRIMARY) HYPERTENSION 11/23/2015 BAIMA, CHANCE L REAL ESTATE UTILIZATION OFFICER Ot I25.10 ATHSCL HEART DISEASE OF [place] CORONARY 11/23/2015 BAIMA, CHANCE L REAL ESTATE UTILIZATION OFFICER Ot 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 12/11/2015 FLAKOCHANCE FUNG REAL ESTATE UTILIZATION OFFICER Ot E78.4 OTHER HYPERLIPIDEMIA 12/11/2015 CHANCE CARRENO REAL ESTATE UTILIZATION OFFICER Ot I10 ESSENTIAL (PRIMARY) HYPERTENSION 12/11/2015 FLAKOCHANCE FUNG REAL ESTATE UTILIZATION OFFICER Ot I25.10 ATHSCL HEART DISEASE OF [place] CORONARY 12/11/2015 CHANCE CARRENO REAL ESTATE UTILIZATION OFFICER Ot 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 03/11/2016 MAGDIEL MARTINEZ MD Ot K92.1 MELENA 03/11/2016 MAGDIEL MARTINEZ MD Ot Z01.818 ENCOUNTER FOR OTHER PREPROCEDURAL EXAMIN 03/15/2016 ANDREW ASTORGA FACC, ALI FACP CCDS Ot 785.2 CARDIAC MURMURS NEC 03/15/2016 ANDREW ASTORGA FACC, ALI FACP CCDS Ot 786.59 CHEST PAIN NEC 03/15/2016 ANDREW ASTORGA FACC, ALI FACP CCDS Ot 785.2 CARDIAC MURMURS NEC 03/15/2016 ANDREW ASTORGA FACC, ALI FACP CCDS Ot 786.59 CHEST PAIN NEC 03/15/2016 DREW MARTINEZ MD Ot 715.36 LOC OSTEOARTH NOS-L/LEG 03/15/2016 DREW MARTINEZ MD Ot 719.46 JOINT PAIN-L/LEG 03/15/2016 AME RODRIGEZ MD Ot M17.12 UNILATERAL PRIMARY OSTEOARTHRITIS, LEFT 03/15/2016 RAIN ASTORGA, AME Herbert Ot R53.83 OTHER FATIGUE 03/15/2016 AME RODRIGEZ MD Ot Z01.810 ENCOUNTER FOR PREPROCEDURAL CARDIOVASCUL 03/15/2016 AME RODRIGEZ MD Ot Z01.811 ENCOUNTER FOR PREPROCEDURAL RESPIRATORY 03/15/2016 AME RODRIGEZ MD Ot Z01.812 ENCOUNTER FOR PREPROCEDURAL LABORATORY E 03/15/2016 AME RODRIGEZ MD Ot Z11.2 ENCOUNTER FOR SCREENING FOR OTHER BACTER 03/15/2016 AME RODRIGEZ MD Ot M48.07 SPINAL STENOSIS, LUMBOSACRAL REGION 03/15/2016 AME RODRIGEZ MD Ot Z48.89 ENCOUNTER FOR OTHER SPECIFIED SURGICAL A 03/15/2016 CHANCE CARRENO REAL ESTATE UTILIZATION OFFICER Ot E78.4 OTHER HYPERLIPIDEMIA 03/15/2016 BAIMA, CHANCE L REAL ESTATE UTILIZATION OFFICER Ot I10 ESSENTIAL (PRIMARY) HYPERTENSION 03/15/2016 BAIMA, CHANCE L REAL ESTATE UTILIZATION OFFICER Ot I25.10 ATHSCL HEART DISEASE OF [place] CORONARY 03/15/2016 BAIMA, CHANCE L REAL ESTATE UTILIZATION OFFICER Ot 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 03/15/2016 BAIMA, CHANCE L REAL ESTATE UTILIZATION OFFICER Ot E78.4 OTHER HYPERLIPIDEMIA 03/15/2016 BAIMA, CHANCE L REAL ESTATE UTILIZATION OFFICER Ot I10 ESSENTIAL (PRIMARY) HYPERTENSION 03/15/2016 BAIMA, CHANCE L REAL ESTATE UTILIZATION OFFICER Ot I25.10 ATHSCL HEART DISEASE OF [place] CORONARY 03/15/2016 BAIMA, CHANCE L REAL ESTATE UTILIZATION OFFICER Ot 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 03/15/2016 BAIMA, CHANCE L REAL ESTATE UTILIZATION OFFICER Ot E78.4 OTHER HYPERLIPIDEMIA 03/15/2016 BAIMA, CHANCE L REAL ESTATE UTILIZATION OFFICER Ot I10 ESSENTIAL (PRIMARY) HYPERTENSION 03/15/2016 BAIMA, CHANCE L REAL ESTATE UTILIZATION OFFICER Ot I25.10 ATHSCL HEART DISEASE OF [place] CORONARY 03/15/2016 BAIMA, CHANCE L REAL ESTATE UTILIZATION OFFICER Ot 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 03/15/2016 MAGDIEL MARTINEZ MD Ot K44.9 DIAPHRAGMATIC HERNIA WITHOUT OBSTRUCTION 03/15/2016 MAGDIEL MARTINEZ MD Ot K92.1 MELENA 03/15/2016 MAGDIEL MARTINEZ MD Ot Z79.02 RETIREMENT (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 03/15/2016 MAGDIEL MARTINEZ MD Ot 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 03/17/2016 MAGDIEL MARTINEZ MD Ot K44.9 DIAPHRAGMATIC HERNIA WITHOUT OBSTRUCTION 03/17/2016 MAGDIEL MARTINEZ MD Ot K92.1 MELENA 03/17/2016 MAGDIEL MARTINEZ MD Ot Z79.02 RETIREMENT (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 03/17/2016 MAGDIEL MARTINEZ MD Ot 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 08/02/2016 ANDREW ASTORGA FACMercedes, ALI FACP CCDS Ot 785.2 CARDIAC MURMURS NEC 08/02/2016 ANDREW ASTORGA FACC, ALI FACP CCDS Ot 786.59 CHEST PAIN NEC 08/02/2016 ANDREW ASTORGA FACC, ALI FACP CCDS Ot 785.2 CARDIAC MURMURS NEC 08/02/2016 ANDREW ASTORGA FAC, ALI FACP CCDS Ot 786.59 CHEST PAIN NEC 08/02/2016 DREW MARTINEZ MD Ot 715.36 LOC OSTEOARTH NOS-L/LEG 08/02/2016 DREW MARTINEZ MD Ot 719.46 JOINT PAIN-L/LEG 08/02/2016 AME RODRIGEZ MD Ot M17.12 UNILATERAL PRIMARY OSTEOARTHRITIS, LEFT 08/02/2016 RAIN ASTORGA, AME Herbert Ot R53.83 OTHER FATIGUE 08/02/2016 AME RODRIGEZ MD Ot Z01.810 ENCOUNTER FOR PREPROCEDURAL CARDIOVASCUL 08/02/2016 AME RODRIGEZ MD Ot Z01.811 ENCOUNTER FOR PREPROCEDURAL RESPIRATORY 08/02/2016 AME RODRIGEZ MD Ot Z01.812 ENCOUNTER FOR PREPROCEDURAL LABORATORY E 08/02/2016 AME RODRIGEZ MD Ot Z11.2 ENCOUNTER FOR SCREENING FOR OTHER BACTER 08/02/2016 AME RODRIGEZ MD Ot M48.07 SPINAL STENOSIS, LUMBOSACRAL REGION 08/02/2016 AME RODRIGEZ MD Ot Z48.89 ENCOUNTER FOR OTHER SPECIFIED SURGICAL A 08/02/2016 BAIMA, CHANCE L [employer]STATE UTILIZATION OFFICER Ot E78.4 OTHER HYPERLIPIDEMIA 08/02/2016 FLAKOMA, CHANCE L REAL ESTATE UTILIZATION OFFICER Ot I10 ESSENTIAL (PRIMARY) HYPERTENSION 08/02/2016 FLAKOMA CHANCE L REAL ESTATE UTILIZATION OFFICER Ot I25.10 ATHSCL HEART DISEASE OF [place] CORONARY 08/02/2016 BAIMA, CHANCE L REAL ESTATE UTILIZATION OFFICER Ot 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 08/02/2016 BAIMA, CHANCE L REAL ESTATE UTILIZATION OFFICER Ot E78.4 OTHER HYPERLIPIDEMIA 08/02/2016 BAIMA, CHANCE L REAL ESTATE UTILIZATION OFFICER Ot I10 ESSENTIAL (PRIMARY) HYPERTENSION 08/02/2016 BAIMA, CHANCE L REAL ESTATE UTILIZATION OFFICER Ot I25.10 ATHSCL HEART DISEASE OF [place] CORONARY 08/02/2016 BAIMA, CHANCE L REAL ESTATE UTILIZATION OFFICER Ot 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 08/02/2016 BAIMA, CHANCE L REAL ESTATE UTILIZATION OFFICER Ot E78.4 OTHER HYPERLIPIDEMIA 08/02/2016 BAIMA, CHANCE L REAL ESTATE UTILIZATION OFFICER Ot I10 ESSENTIAL (PRIMARY) HYPERTENSION 08/02/2016 BAIMA, CHANCE L REAL ESTATE UTILIZATION OFFICER Ot I25.10 ATHSCL HEART DISEASE OF [place] CORONARY 08/02/2016 CHANCE CARRENO REAL ESTATE UTILIZATION OFFICER Ot 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 08/03/2016 EMIR LIMA YENY Barker Ot M48.02 SPINAL STENOSIS, CERVICAL REGION 08/03/2016 EMIR LIMA YENY Barker Ot M50.20 OTHER CERVICAL DISC DISPLACEMENT, UNSP C 08/03/2016 EMIR LIMA YENY Barker Ot M54.6 PAIN IN THORACIC SPINE 2016 EMIR LIMA YENY Barker Ot M48.02 SPINAL STENOSIS, CERVICAL REGION 2016 EMIR LIMA YENY Barker Ot M50.20 OTHER CERVICAL DISC DISPLACEMENT, UNSP C 2016 EMIR LIMA YENY Barker Ot M54.6 PAIN IN THORACIC SPINE 09/12/2016 EMIR LIMA YENY Barker Ot M48.02 SPINAL STENOSIS, CERVICAL REGION 09/12/2016 EMIR LIMA YENY Barker Ot M50.20 OTHER CERVICAL DISC DISPLACEMENT, UNSP C 09/12/2016 EMIR LIMAYENY Lucero Ot M54.6 PAIN IN THORACIC SPINE 12/09/2016 ANDREW ASTORGA FACC, KEZIA FACP CCDS Ot I25.10 ATHSCL HEART DISEASE OF [place] CORONARY 12/14/2016 ANDREW ASTORGA FACC, ALI FACP CCDS Ot E78.4 OTHER HYPERLIPIDEMIA 12/14/2016 ANDREW ASTORGA FACC, ALI FACP CCDS Ot I12.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 12/14/2016 ANDREW ASTORGA FACC, ALI FACP CCDS Ot I25.10 ATHSCL HEART DISEASE OF [place] CORONARY 12/14/2016 ANDREW ASTORGA FACC, KEZIA FACP CCDS Ot 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 12/14/2016 ANDREW ASTORGA FACC, ALI FACP CCDS Ot N18.3 CHRONIC KIDNEY DISEASE, STAGE 3 (MODERAT 01/03/2017 ANDREW ASTORGA FACC, ALI FACP CCDS Ot E78.4 OTHER HYPERLIPIDEMIA 01/03/2017 ANDREW ASTORGA FACC, ALI FACP CCDS Ot I12.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 01/03/2017 ANDREW ASTORGA FACC, ALI FACP CCDS Ot I25.10 ATHSCL HEART DISEASE OF [place] CORONARY 01/03/2017 ANDREW ASTORGA FACC, ALI FACP CCDS Ot 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 01/03/2017 ANDREW ASTORGA FACC, ALI FACP CCDS Ot N18.3 CHRONIC KIDNEY DISEASE, STAGE 3 (MODERAT 01/10/2017 ANDREW ASTORGA FACC, ALI FACP CCDS Ot E78.4 OTHER HYPERLIPIDEMIA 01/10/2017 ANDREW ASTORGA FACC, ALI FACP CCDS Ot I12.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 01/10/2017 ANDREW ASTORGA FACC, ALI FACP CCDS Ot I25.10 ATHSCL HEART DISEASE OF [place] CORONARY 01/10/2017 ANDREW ASTORGA FACC, ALI FACP CCDS Ot 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 01/10/2017 ANDREW ASTORGA FACC, ALI FACP CCDS Ot N18.3 CHRONIC KIDNEY DISEASE, STAGE 3 (MODERAT 06/21/2017 ANDREW ASTORGA FACC, ALI FACP CCDS Ot E78.4 OTHER HYPERLIPIDEMIA 06/21/2017 ANDREW ASTORGA FACC, ALI FACP CCDS Ot I12.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 06/21/2017 ANDREW ASTORGA FACC, ALI FACP CCDS Ot I25.10 ATHSCL HEART DISEASE OF [place] CORONARY 06/21/2017 ANDREW ASTORGA FACC, ALI FACP CCDS Ot 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 06/21/2017 ANDREW ASTORGA FACC, ALI FACP CCDS Ot N18.3 CHRONIC KIDNEY DISEASE, STAGE 3 (MODERAT 07/04/2017 ANDREW ASTORGA FACC, ALI FACP CCDS Ot E78.4 OTHER HYPERLIPIDEMIA 07/04/2017 ANDREW ASTORGA FACC, ALI FACP CCDS Ot I12.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 07/04/2017 ANDREW ASTORGA FACC, ALI FACP CCDS Ot I25.10 ATHSCL HEART DISEASE OF [place] CORONARY 07/04/2017 ANDREW ASTORGA FACC, ALI FACP CCDS Ot 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 07/04/2017 ANDREW ASTORGA FACC, ALI FACP CCDS Ot N18.3 CHRONIC KIDNEY DISEASE, STAGE 3 (MODERAT 07/05/2017 AMA MOON MD Ot M48.02 SPINAL STENOSIS, CERVICAL REGION 07/05/2017 AMA MOON MD Ot Z01.812 ENCOUNTER FOR PREPROCEDURAL LABORATORY E 07/05/2017 AMA MOON MD, Ot Z11.2 ENCOUNTER FOR SCREENING FOR OTHER BACTER 07/05/2017 AMA MOON MD, Ot Z22.322 CARRIER OR SUSPECTED CARRIER OF METHICIL Procedures Code Description Performed By Performed On [id number] REPLACE OF L KNEE JT WITH SYNTH SUB, ANGE 01/21/2015 Results Test Result Range Complete blood count (CBC) with automated white blood cell (WBC) differential - 07/04/17 12:55 Blood leukocytes automated count (number/volume) 6.3 10*3/uL 4.3-11.0 Blood erythrocytes automated count (number/volume) 4.40 10*6/uL 4.35-5.85 Venous blood hemoglobin measurement (mass/volume) 13.3 g/dL 13.3-17.7 Blood hematocrit (volume fraction) 40 % 40-54 Automated erythrocyte mean corpuscular volume 90 [foz_us] 80-99 Automated erythrocyte mean corpuscular hemoglobin (mass per erythrocyte) 30 pg 25-34 Automated erythrocyte mean corpuscular hemoglobin concentration measurement ( mass/volume) 34 g/dL 32-36 Automated erythrocyte distribution width ratio 13.1 % 10.0-14.5 Automated blood platelet count (count/volume) 182 10*3/uL 130-400 Automated blood platelet mean volume measurement 11.5 [foz_us] 7.4-10.4 Automated blood neutrophils/100 leukocytes 63 % 42-75 Automated blood lymphocytes/100 leukocytes 22 % 12-44 Blood monocytes/100 leukocytes 9 % 0-12 Automated blood eosinophils/100 leukocytes 5 % 0-10 Automated blood basophils/100 leukocytes 1 % 0-10 Blood neutrophils automated count (number/volume) 4.0 10*3 1.8-7.8 Blood lymphocytes automated count (number/volume) 1.4 10*3 1.0-4.0 Blood monocytes automated count (number/volume) 0.6 10*3 0.0-1.0 Automated eosinophil count 0.3 10*3/uL 0.0-0.3 Automated blood basophil count (count/volume) 0.0 10*3/uL 0.0-0.1 Methicillin resistant Staphylococcus aureus (MRSA) screening culture - 12:55 Methicillin resistant Staphylococcus aureus (MRSA) screening culture NEG NRG Encounters ACCT No. Visit Date/Time Discharge Status Pt. 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 [id number] 08/02/2016 15:57:00 08/02/2016 23:59:59 CLS Outpatient YENY FIELD DO [facility] RAD M54.2,M54.6 [id number] 03/15/2016 06:44:00 03/15/2016 09:00:00 DIS Outpatient MAGDIEL MARTINEZ MD [facility] SDC MELANA [id number] 03/11/2016 05:32:00 03/11/2016 12:26:00 DIS Outpatient MAGDIEL MARTINEZ MD [facility] PREOP [place]ELANA [id number] 11/19/2015 07:49:00 11/19/2015 23:59:59 CLS Outpatient BAIKENTON, CHANCE L REAL ESTATE UTILIZATION OFFICER [facility] CARD CAD,HYPERTENSION [id number] 10/19/2015 11:54:00 10/19/2015 23:59:59 CLS Outpatient BAIKENTON, CHANCE L REAL ESTATE UTILIZATION OFFICER [facility] RAD CAD,HTN,HLD [id number] 10/16/2015 10:47:00 10/16/2015 23:59:59 CLS Outpatient BAIKENTON, CHANCE L REAL ESTATE UTILIZATION OFFICER [facility] CARD CAD [id number] 08/25/2015 23:58:00 08/26/2015 01:01:00 DIS Emergency MILTON ASTORGA, MARISOL Maldonado [facility] ER BOTH EYELIDS BLEEDING( SURGERY ON 08-25-15) [id number] 07/13/2015 13:50:00 07/13/2015 23:59:59 CLS Outpatient AME RODRIGEZ MD [facility] RAD SPINAL STENOSIS OF LUMBOSACRAL SPINE [id number] 01/21/2015 05:57:00 01/24/2015 12:45:00 DIS Inpatient AME RODRIGEZ MD [facility] 4TH LEFT KNEE SEVERE OSTEOARTHRIS [id number] 01/14/2015 10:10:00 01/14/2015 23:59:59 CLS Outpatient AME RODRIGEZ MD [facility] PREOP LEFT KNEE SEVERE OSTEOARTHRITIS [id number] 09/09/2013 11:13:00 09/09/2013 23:59:59 CLS Outpatient DREW MARTINEZ MD [facility] RAD LT KNEE PAIN [id number] 06/18/2013 08:39:00 06/19/2013 09:30:00 DIS Outpatient ANDREW ASTORGA FACC, ALI FACP CCDS [facility] CATH ANGINA [id number] 04/30/2013 13:55:00 05/01/2013 11:00:00 DIS Outpatient ANDREW ASTORGA FACC, ALI FACP CCDS [facility] CATH CHEST PAIN DYPSENIA HYPERTENSION [id number] 10/25/2012 07:48:00 10/25/2012 23:59:59 CLS Outpatient ANDREW ASTORGA FACC, ALI FACP CCDS [facility] RAD CHEST DISCOMFORT [id number] 10/18/2012 09:33:00 10/18/2012 23:59:59 CLS Outpatient ANDREW ASTORGA FACC, ALI FACP CCDS [facility] CARD CHEST DISCOMFORT [id number] 07/10/2017 12:45:00 ACT Preadmit AMA MOON MD [facility] SDC STENOSIS
--- NOTE | 2017-07-10 10:14 | Progress Note-Pre Operative ---
Pre-Operative Progress Note H&P Reviewed The H&P was reviewed, patient examined and no changes noted. Date Seen by Provider: July 10, 2017 Time Seen by Provider: 10:14 Date H&P Reviewed: July 10, 2017 Time H&P Reviewed: 10:14 Pre-Operative Diagnosis: Cervical Stenosis with myelopathy AMA MOON MD July 10, 2017 10:14 am
[2017-07-10] MEDS: LACTATED RINGERS 1,000 ML IV PRN ×2 (10:42→13:02)
[2017-07-10] MEDS ORDERED: VANCOMYCIN 1000 MG/VIAL ONE (10:52)
[2017-07-10] MEDS ORDERED: GENTAMICIN 40 MG/ML 2 ML INJ SDV ONE (10:52)
[2017-07-10] MEDS ORDERED: SUCCINYLCHOLINE INJ 100 MG/5 ML SYR ONE (10:53)
[2017-07-10] MEDS ORDERED: proPOfol 200 MG/20 ML (DIPRIVAN) VIAL IV ONE ×2 (10:53→13:45)
[2017-07-10] MEDS ORDERED: LIDOCAINE PF 2% 5 ML (XYLOCAINE) VIAL ONE (10:53)
[2017-07-10] MEDS ORDERED: SEVOFLURANE (ULTANE) 15 ML INHAL SOLN ONE ×2 (10:53→13:52)
[2017-07-10] MEDS ORDERED: ONDANSETRON 4 MG/2 ML (SDV) Z0FRAN ONE (10:53)
[2017-07-10] MEDS ORDERED: fentaNYL INJECTION 100 MCG/2 ML AMP ONE (10:54)
[2017-07-10] MEDS ORDERED: ceFAZolin 2 GM IV Premixed 50 ML ONE (11:14)
[2017-07-10] MEDS ORDERED: ceFAZolin INJECTION 2,000 MG in NS (IVPB) 100 ML IV SCH (11:30)
[2017-07-10] MEDS ORDERED: GLYCOPYRROLATE 0.2 MG/ML (ROBINUL) 2 ML VIAL ONE (13:30)
[2017-07-10] MEDS ORDERED: NEOSTIGMINE 1 MG/ML 5 ML SYRINGE ONE (13:30)
[2017-07-10] MEDS ORDERED: ROCURONIUM 10 MG/ML 5 ML SYRINGE IV ONE (13:30)
[2017-07-10] MEDS ORDERED: DEXMEDETOMIDINE 200 MCG/2 ML (PRECEDEX) VIAL IV ONE (13:51)
--- NOTE | 2017-07-10 13:51 | Progress Note-Post Operative ---
Post-Operative Progess Note Surgeon (s)/Electric Milkers Installer (s) Surgeon AMA MOON MD Electric Milkers Installer: SHANE Alba Pre-Operative Diagnosis Cervical Stenosis with myelopathy Post-Operative Diagnosis Same Procedure & Operative Findings Date of Procedure 07/10/17 Procedure Performed/Findings C4-7 ACDF Anesthesia Type GETA Estimated Blood Loss Estimated blood loss (mL): <100 Specimens/Packing Specimens Removed disc not sent to AMA Paulson MD July 10, 2017 1:51 pm
[2017-07-10] MEDS ORDERED: morphine INJ 10 MG/ML 1ML (SYR OR VIAL) ONE (14:11)
[2017-07-10] MEDS ORDERED: ONDANSETRON 4 MG/2 ML (SDV) Z0FRAN IVP PRN (14:15)
[2017-07-10] MEDS: morphine INJ 10 MG/ML 1ML (SYR OR VIAL) IVP PRN ×2 (14:18→14:23)
[2017-07-10] MEDS ORDERED: HYDROmorphone 2 MG/ML VIAL (DILAUDID) ONE (14:23)
[2017-07-10] MEDS: HYDROmorphone 2 MG/ML VIAL (DILAUDID) IVP PRN ×2 (14:29→14:39)
--- NOTE | 2017-07-10 14:47 | Diagnostic Imaging Report ---
Procedure: Fluoroscopy. Indication: Anterior cervical discectomy. Findings: Fluoroscopic assistance was provided for Dr. Tijerina during his anterior cervical discectomy with fusion procedure. 12.7 seconds of fluoroscopy time was utilized. The AP and lateral views of the lumbar spine were received from the OR. There is an orthopedic plate and screw fixation device along the ventral aspect of the cervical spine extending from C4 to C7. Interbody device is at C4-5, C5-6 and C6-7 are noted as well. The orthopedic hardware seems to be in good position. Impression: 1. Fluoroscopic assistance was provided for Dr. Tijerina. 2. A followup AP and lateral study would be recommended for continued evaluation. Dictated by: Dictated on workstation # [id number]
[2017-07-10 15:15] VITALS: BP 120/62
[2017-07-10] MEDS ORDERED: morphine INJ 4 MG/ML 1 ML (VIAL/SYRINGE) ONE (15:28)
[2017-07-10] MEDS: morphine INJ 4 MG/ML 1 ML (VIAL/SYRINGE) IVP PRN ×3 (15:39→23:56)
[2017-07-10] MEDS: NS IV 1000 ML 1,000 ML IV SCH ×2 (17:21→21:18)
[2017-07-10] MEDS ORDERED: [UNRECOGNIZED DRUG - OTHER] OU PRN (17:45)
[2017-07-10] MEDS ORDERED: GLYCERIN OU PRN (17:45)
[2017-07-10] MEDS ORDERED: PROPYLENE GLYCOL OU PRN (17:45)
--- NOTE | 2017-07-10 17:45 | Consultation ---
History of Present Illness History of Present Illness Patient Consulted On(mickie/time) 07/10/17 17:41 Date Seen by Provider: July 10, 2017 Time Seen by Provider: 17:35 Reason for Visit: Medical consultation History of Present Illness 81-year-old male underwent orthopedic correction for cervical stenosis with myelopathy today. Patient is well known to me and has been on medications for hypertension, hyperlipidemia as well as hypothyroidism in the past. I spoke with patient after his surgery and appears to be doing well at least as far as what he can tell. He voices no major complaints. He states he is not able to currently drink or swallow any pills. Allergies and Home Medications Allergies Coded Allergies: No Known Drug Allergies (Unverified , 10/25/12) Home Medications Aspirin 81 Mg Tab.chew, 162 MG PO DAILY, (Reported) TAKE 2 (81MG) TABS Dorzolamide HCl 10 Ml Drops, 1 DROP OU BID, (Reported) Famotidine 20 Mg Tablet, 20 MG PO BID, (Reported) Glycerin/Propylene Glycol 30 Ml Drops, 1 DROP OU QID PRN for DRY EYES, (Reported ) Levothyroxine Sodium 88 Mcg Tablet, 88 MCG PO DAILY, (Reported) Metoprolol Succinate 100 Mg Tab.er.24h, 100 MG PO DAILY, (Reported) Naproxen Sodium 220 Mg Tablet, 220 MG PO DAILY, (Reported) Pravastatin Sodium 40 Mg Tablet, 40 MG PO DAILY, (Reported) Tamsulosin HCl 0.4 Mg Cap.er.24h, 0.4 MG PO DAILY, (Reported) Patient Home Medication List Home Medication List Reviewed: Yes Past Cgvjvnn-Abbjbb-Tfarke Hx Patient Social History Alcohol Use: Occasionally Uses Recreational Drug Use: No Smoking Status: Former Smoker Type Used: Cigarettes Former Smoker, Quit: Mar 11, 1989 Recent Foreign Travel: No Contact w/Someone Who Travel: No Recent Infectious Disease Expo: No Recent Hopitalizations: No Immunizations Up To Date Date of Pneumonia Vaccine: Nov 12, 2015 Date of Influenza Vaccine: Dec 06, 2015 Seasonal Allergies Seasonal Allergies: No Past Medical History Surgeries: Yes (CORNEA TRANSPLANT, MASTOIDECTOMY, eyelid reduction, L TKR) Gallbladder, Joint Replacement Respiratory: No Cardiac: Yes (STENTS X2-LAST ONE COUPLE YEARS AGO) Hypertension Neurological: No Reproductive Disorders: No Sexually Transmitted Disease: No HIV/AIDS: No Genitourinary: No Gastrointestinal: No Musculoskeletal: Yes Arthritis, Chronic Back Pain Endocrine: No Hypothyroidsim HEENT: Yes Glaucoma Loss of Vision: Bilateral Hearing Impairment: Denies Cancer: No Psychosocial: No Integumentary: No Blood Disorders: No Adverse Reaction/Blood Tranf: No Family Medical History LUNG CANCER G8 BROTHER Myocardial infarction 19 MOTHER Review of Systems-General Constitutional: see HPI Physical Exam-General Problems Physical Exam Vital Signs Capillary Refill : General Appearance: no apparent distress Eyes: Bilateral Eye Normal Inspection Neck: other (Cervical collar in place) Respiratory: lungs clear Cardiovascular: regular rate, rhythm Gastrointestinal: soft Rectal: deferred Extremities: no pedal edema Skin: normal color Assessment/Plan Assessment/Plan Admission Diagnosis/Plan 1. Status post cervical spine stenosis with myelopathy repair -He is under the care of orthopedics 2. Hypertensionhistory of -We will restart his antihypertensives when he is able to swallow 3. Hypothyroidism -Initiate levothyroxine 4. Hyperlipidemia Admission Status: Inpatient Order (span 2 midnights) Reason for Inpatient Admission: Patient is admitted for recovery from surgical correction of cervical spine stenosis Clinical Quality Measures DVT/VTE Risk/Contraindication: Risk Factor Score Per Nursin RFS Level Per Nursing on Admit: 4+=Very High ISI SENA MD July 10, 2017 17:45
[2017-07-10] MEDS ORDERED: ARTIFICAL TEARS 0.4 ML UNIT DOSE (REFRESH PLUS) OU PRN (18:00)
[2017-07-10] MEDS: ceFAZolin 2 GM/50 ML PRE-MIXED IVPB IV SCH (18:11)
[2017-07-10 19:05] VITALS: BP 169/96
[2017-07-10] MEDS: FAMOTIDINE 20 MG (PEPCID) TABLET PO SCH (20:18)
[2017-07-10] MEDS: ONDANSETRON 4 MG/2 ML (SDV) Z0FRAN IV PRN (21:35)
--- NOTE | 2017-07-10 23:15 | OPERATIVE REPORT ---
DATE OF SERVICE: 07/10/2017 PREOPERATIVE DIAGNOSES: Cervical stenosis, neural canal degenerative disk and osseous structure, cervical spondylosis with myelopathy and cervical radiculopathy. POSTOPERATIVE DIAGNOSES: Cervical stenosis, neural canal degenerative disk and osseous structure, cervical spondylosis with myelopathy and cervical radiculopathy. PROCEDURES PERFORMED: 1. C4-5 anterior cervical discectomy and fusion. 2. C5-6 anterior cervical discectomy and fusion. 3. C6-7 anterior cervical discectomy and fusion. 4. C4-5, C5-6 and C6-7 interbody cage instrumentation without interval fixation. 5. C4-7 anterior cervical plate instrumentation. 6. Allograft for spine surgery morcellized. DATE AND TIME OF SURGERY: Please see anesthesia record. IMPLANTS USED: K2M [place] plate, K2M [place] cervical titanium cages and K2M [place] bone graft. SURGEON: Ama Tijerina MD. LOSS PREVENTION COORDINATOR: BRITTANY Alba. ROLE OF CREDIT RESOLUTION REPRESENTATIVE: Aid in retraction of the procedure, suction of neural elements, and wound closure. ANESTHESIA: General endotracheal. ESTIMATED BLOOD LOSS: Less 100 mL. INTRAVENOUS FLUIDS: Please see anesthesia record. ANTIBIOTICS: Ancef. COMPLICATIONS: None. SPECIMENS: Disks, but not sent to pathology. INDICATIONS FOR PROCEDURE: The patient is an 81-year-old male with progressively intolerable neck and arm pain, high-grade stenosis, failed conservative therapy, myelopathy features, desires operative treatment. NEUROMONITORING: Standard intraoperative neuromonitoring carried out by means of real time continuous high quality bidirectional remote audio and visual communication to both the slot technician and surgeon by Dr. Smith. SSEPS, EMGs, TcMEPs, TOFs were carried out continuously throughout the procedure stable. DESCRIPTION OF PROCEDURE: The patient was taken to the preoperative holding area and brought back to the operative suite. After adequate induction of general anesthetic, preoperative antibiotics, placed on spinal monitoring, placed supine on the OR table. Shoulder was placed, head extended, sterilely prepped and draped to the anterior cervical spine. Standard left-sided Hernandez-Orellana approach, neck was carried out without difficulty. Once the appropriate levels were confirmed, Shadow-Line retractor was placed deep to longus colli for remainder of the case and starting at C4-5, Serafina pins were placed. Anterior discectomy was carried out. Disk decompression all the way down to the posterior longitudinal ligament was formed in place. Trial spacer was utilized. The appropriate sized [place] cage filled. Allograft bone was packed in position with great fit achieved. Procedure was then carried out at C5-6 and C6-7 levels and once all three levels were adequately decompressed and fused, osteophytes were removed and an appropriate sized [place] plate was affixed to the spine with a combination of 14 and 16 mm variable angle screws. Locking mechanism was deployed. Wound was copiously irrigated. FloSeal and bipolar cautery used to aid in hemostasis. Deep drain was placed. Wound was closed in layers. The patient transferred to recovery room in stable condition and tolerated the procedure well. Job ID: [id number] DocumentID: [id number] Dictated Date: 07/10/2017 13:55:44 Casting Director Date: 07/10/2017 23:14:21 Dictated By: AMA TIJERINA MD MTDD
[2017-07-11] VITALS: BP 113/70
[2017-07-11] MEDS: ceFAZolin 2 GM/50 ML PRE-MIXED IVPB IV SCH ×2 (01:44→10:31)
[2017-07-11] MEDS: NS IV 1000 ML 1,000 ML IV SCH ×3 (01:44→18:29)
[2017-07-11] MEDS: morphine INJ 4 MG/ML 1 ML (VIAL/SYRINGE) IVP PRN ×2 (03:51→21:40)
[2017-07-11 04:00] VITALS: BP 165/93
[2017-07-11] MEDS: LEVOTHYROXINE 88 MCG (LEVOTHORID) TAB PO SCH (05:48)
[2017-07-11] MEDS: MULTIVIT W/MINERALS TAB (THERAGRAN M) PO SCH (05:49)
--- NOTE | 2017-07-11 06:29 | Progress Note (SOAP) ---
Subjective Date Seen by Provider: July 11, 2017 Time Seen by Provider: 06:27 Subjective/Events-last exam Headache from caffeine withdrawal Otherwise some swallowing trouble No other complaints Objective Exam Vital Signs Date Time Temp Pulse Resp B/P (MAP) Pulse Ox O2 Delivery O2 Flow Rate FiO2 07/11/17 04:00 97.5 100 18 165/93 (117) 96 Room Air 07/11/17 00:00 98.0 100 19 113/70 (84) 98 Nasal Cannula 0.50 07/10/17 21:48 Nasal Cannula 1.00 07/10/17 19:05 97.0 91 18 169/96 (120) 98 Nasal Cannula 1.50 07/10/17 18:33 Nasal Cannula 2.00 07/10/17 15:15 97.4 67 20 120/62 (81) 92 Nasal Cannula 1.50 I & O 07/11/17 07:00 Intake Total 2662 ml Output Total 500 ml Balance 2162 ml Capillary Refill : General Appearance: No Apparent Distress HEENT: Pharynx Normal Neck: Non Tender, Supple, Other (phonation good, no stridor, gabriela inplace) Respiratory: No Accessory Muscle Use, No Respiratory Distress Cardiovascular: Regular Rate, Rhythm Extremity: Normal Capillary Refill Neurologic/Psychiatric: Alert, Oriented x3, No Motor/Sensory Deficits Skin: Normal Color Assessment/Plan Assessment/Plan Assess & Plan/Chief Complaint Cervical Spondylosis with myelopathy Cervical Stenosis Cervical Radiculopathy dysphagia Plan: Speech/swallow eval up with PT today Clinical Quality Measures DVT/VTE Risk/Contraindication: Risk Factor Score Per Nursin RFS Level Per Nursing on Admit: 4+=Very High AMA MOON MD July 11, 2017 6:29 am
--- NOTE | 2017-07-11 07:41 | Progress Note (SOAP) ---
Subjective Date Seen by Provider: July 11, 2017 Time Seen by Provider: 07:35 Subjective/Events-last exam Patient is communicating well this morning. He does not appear to be in any distress. He reports he still having a little issue swallowing but he did drink one half a cup of coffee. Objective Exam Vital Signs Date Time Temp Pulse Resp B/P (MAP) Pulse Ox O2 Delivery O2 Flow Rate FiO2 07/11/17 04:00 97.5 100 18 165/93 (117) 96 Room Air 07/11/17 00:00 98.0 100 19 113/70 (84) 98 Nasal Cannula 0.50 07/10/17 21:48 Nasal Cannula 1.00 07/10/17 19:05 97.0 91 18 169/96 (120) 98 Nasal Cannula 1.50 07/10/17 18:33 Nasal Cannula 2.00 07/10/17 15:15 97.4 67 20 120/62 (81) 92 Nasal Cannula 1.50 I & O 07/11/17 07:00 Intake Total 2662 ml Output Total 500 ml Balance 2162 ml Capillary Refill : General Appearance: No Apparent Distress Neck: Supple Respiratory: Lungs Clear, Other (C-collar is now off) Cardiovascular: Regular Rate, Rhythm Gastrointestinal: soft Assessment/Plan Assessment/Plan Assess & Plan/Chief Complaint 1. Status post cervical spine stenosis with myelopathy repair -He is under the care of orthopedics 2. Dysphagiaprobably transient -Orthopedics ordered swallow study this morning 3. Hypertensionhistory of -We will restart his antihypertensives when he is able to swallow. We will await after swallow study 4. Hypothyroidism -Initiate levothyroxine 5. Hyperlipidemia Clinical Quality Measures DVT/VTE Risk/Contraindication: Risk Factor Score Per Nursin RFS Level Per Nursing on Admit: 4+=Very High ISI SENA MD July 11, 2017 07:41
[2017-07-11 08:00] VITALS: BP 165/85
[2017-07-11] MEDS: TAMSULOSIN 0.4 MG (FLOMAX) CAP PO SCH ×2 (08:21→10:31)
[2017-07-11] MEDS: FAMOTIDINE 20 MG (PEPCID) TABLET PO SCH ×3 (08:21→20:40)
--- NOTE | 2017-07-11 10:23 | Physical Therapy Evaluation ---
PT Evaluation-General Medical Diagnosis Admission Date July 10, 2017 at 09:56 Medical Diagnosis: cervical stenosis Onset Date: July 10, 2017 Therapy Diagnosis Therapy Diagnosis: generalized weakness/debility Height/Weight Height (Feet): 5 Height (Inches): 11.00 Weight (Pounds): 190 Weight (Ounces): 0.0 Precautions Precautions/Isolations: Fall Prevention, Standard Precautions Weight Bear Status Right Lower Extremity: Right Weight Bearing/Tolerated Left Lower Extremity: Left Weight Bearing/Tolerated Referral Physician: Breezy Reason for Referral: Evaluation/Treatment Medical History Pertinent Medical History: Arthritis, HTN, Hypothroidism Current History s/p C4-C7 cervical discectomy and fusion Reviewed History: Yes Social History Home: Single Level Current Living Status: Alone Patient does report he is unable to care for self prior to this surgery and desires to go to OR. Prior/Core FIM Prior Level of Function Functional [place] Measure 0=Not Assessed/NA 4=Minimal Assistance 1=Total Assistance 5=Supervision or Setup 2=Maximal Assistance 6=Modified [place] 3=Moderate Assistance 7=Complete [place] Bed Mobility: 5 Transfers (B,C,W/C) (FIM): 5 Gait: 5 utilizes a cane PLOF per patient report. PT Evaluation-Current Subjective Patient repeats he wants a drink. Difficult to redirect patient. ST to see patient this a.m. Pain Numeric Pain Scale: 0-No Pain Location: No Pain Reported Objective Patient Orientation: Confused Problem Solving: Poor Attachments: IV ROM/Strength ROM Lower Extremities bilateral LE WNL Strength Lower Extremities Patient had difficulty following simple direction to formally test. 4-/5 grossly bilaterally Integumentary/Posture Integumentary refer to nursing notes Bowel Incontinence: No Bladder Incontinence: No Posture WFL Neuromuscular (Tone, Coordination, Reflexes) diminished coordination with all mobility Sensory Vision: Wears Glasses Hearing: Impaired Sensation Right Lower Extremit: Impaired Sensation Left Lower Extremity: Impaired Transfers Functional [place] Measure 0=Not Assessed/NA 4=Minimal Assistance 1=Total Assistance 5=Supervision or Setup 2=Maximal Assistance 6=Modified [place] 3=Moderate Assistance 7=Complete [place] Transfers (B, C, W/C) (FIM): 4 Scootin Sit to/from Stand: 4 CGA for safety Gait Mode of Locomotion: Walk Anticipated Mode of Locomotion: Walk Gait (FIM): 2 Distance (FIM): 1=526-30 ft Distance: 85' Gait Level of Assist: 4 Gait Persons Needed: 1 Gait Assistive Device: FWW Comments/Gait Description noted shuffle gait sequence with left LE lag. Patient is able to correct with skilled verbal instruction to take a big step. Patient also presents with Parkinson's like gait sequence with noted festinating gait. Balance Sitting Static: Normal Sitting Dynamic: Normal Standing Static: Fair Standing Dynamic: Fair Assessment/Needs 81 y.o. male, will benefit from skilled PT to address functional strength and mobility to improve current LOF. Patient voices desire to dismiss to NH for continued care due to inability to care for self at home. SW notified. Rehab Potential: Fair PT Retirement Goals Retirement Goals PT Coning Machine Operator Goals Time Frame: July 19, 2017 Transfers (B,C,W/C) (FIM): 5 Gait (FIM): 5 Gait distance (FIM): 3=150 ft Distance: 200' Gait Level of Assist: 5 Gait Assistive Device: FWW PT Plan Problem List Problem List: Activity Tolerance, Functional Strength, Safety, Balance, Gait, Transfer, Bed Mobility Treatment/Plan Treatment Plan: Continue Plan of Care Treatment Plan: Bed Mobility, Education, Functional Activity Faisal, Functional Strength, Gait, Safety, Therapeutic Exercise, Transfers Treatment Duration: July 19, 2017 Frequency: 6 times per week Estimated Hrs Per Day: .25 hour per day Patient and/or Family Agrees t: Yes Discharge Recommendations Therapy D/C Recommendations: Halfway Placement, Alf (TCU/NH) Time/GCodes Time In: 920 Time Out: 935 Total Billed Treatment Time: 15 Total Billed Treatment 1 visit EVMod 15 min G Codes Necessary: SUDHAKAR Farias PT July 11, 2017 10:23
[2017-07-11 12:30] VITALS: BP 157/78
[2017-07-11] MEDS ORDERED: LIDOCAINE UROJET 2% GEL 10 ML PKG ONE (14:01)
[2017-07-11] MEDS ORDERED: LIDOCAINE UROJET 2% GEL 10 ML PKG TOP NR (14:15)
--- NOTE | 2017-07-11 14:48 | ST Dysphagia Evaluation ---
Speech Evaluation-General Medical Diagnosis Cervical Stenosis Onset Date: July 10, 2017 Therapy Diagnosis Therapy Diagnosis: Severe Pharyngeal Dysphagia Precautions Precautions: Aspiration Precautions/Isolations: Fall Prevention, Standard Precautions Referral Referring Physician: Dr. Raciel Tijerina Clinical Bedside Swallowing Evaluation Medical History Pertinent Medical History: Arthritis, HTN, Hypothroidism Current History The patient recently underwent orthopedic correction of cervical stenosis with myelopathy on 07/10/17 (one day prior). Reviewed History: Yes Social History Current Living Status: Alone Speech PLF/Current-Dysphagia Prior Level of Function The patient denied prior challenges with swallowing, including any signs/ symptoms of aspiration with any consistency he currently consumes. Per patient, he consumes a regular diet with thin liquids at home. Subjective The patient recently underwent orthopedic correction of cervical stenosis with myelopathy on 07/10/17 (one day prior). Following the procedure, the patient has been unable to swallow any consistency, including thin liquids, without signs/ symptoms of aspiration. The patient greeted the clinician appropriately and was agreeable to participation in the dysphagia evaluation. The patient displayed a wet vocal quality at baseline which leads the clinician to believe the patient is not handling his own secretions. Cognitive Status Patient Orientation: Person, Place, Time, Situation Oral Motor Skills Dentition: Natural Current Food Consistancy: Clear Liquids (The patient's chart reads "clear liquids," however, the patient stated he has been placed NPO.) Ability to Follow Directions: Good Oral Expression Ability: No Impairment Voice Voice Phonatory-Based Quality: Glottal Wheeler (To note, the patient has a wet vocal quality at baseline.) Voice Pitch: Normal Voice Loudness: Normal Face Facial Symmetry: Symmetrical Oral-Facial Assessment Oral-Facial Dentition: Normal Labial Seal Description: Normal Smile: Normal Lingual Protrusion: Normal Lingual ROM: Normal Lingual Strength: Normal Pharynx Velopharyngeal Move.: Normal Volitional Dry Swallow: Yes (The patient verbalizes moderate discomfort upon swallowing (odynophagia).) Voluntary Cough: Yes Can Clear Throat Volitionally: Yes Productive Cough: Yes Productive Throat Clear: Yes Dysphagia Evaluation Consistencies Presented: Thin Liquid (Via Teaspoon), Pureed (Via 1/4 teaspoon.) - No oral phase impairments were noted throughout the evaluation. Pharyngeal Phase: Reduced Laryngeal Elevation Delayed laryngeal elevation was noted with all consistencies tested. The patient visually grimaced with limited boluses provided by the clinician. Funct. Velo/Pharyngeal Symptom: Coughing During Swallow, Cough After Swallow, Wet Voice - Thin Liquid (via teaspoon): Overt signs/symptoms of aspiration were demonstrated with three of three trials of thin liquid via teaspoon. The patient displayed a rigorous cough following trials, facial grimacing, and expectoration of the material into a basin. - Puree: The patient attempted one swallow of a 1/4 teaspoon of puree. The patient retched and gagged prior to expectorating the material into a basin. Following bolus trials, the patient's vocal quality was increasingly wet. Dietary Recommendations: NPO Liquid Recommendations: NPO - Speech pathology believes the patient is experiencing pharyngeal edema from his recent cervical procedure. The edema and surgical site are causing odynophagia upon the swallow, as well as, limited space between the posterior pharyngeal wall and laryngeal region. - The clinician recommends the patient remain NPO pending the results of a modified barium swallow evaluation. As pharyngeal edema usually increases between day three and five post surgery, the clinician is concerned of the patient's ability to complete a swallow study prior to this time frame. However , the patient has no additional methods of PO intake. Due to this, the clinician recommends a modified barium swallow prior to any recommendation of an oral diet. Dysphagia Evaluation Summary The patient displays severe pharyngeal dysphagia secondary to pharyngeal edema and odynophagia. The patient is scheduled for a modified barium swallow on 07/12/2017 at 9:00am. Speech [facility] Goals Typing Teacher Goals 1. The patient will participate in a modified barium swallow evaluation. Time Frame: One Week Speech-Plan Treatment Plan Speech Therapy Treatment Plan: Continue Plan of Care Continue skilled speech pathology to target improved swallowing safety. Treatment Duration: July 18, 2017 Frequency: 3 times per week Estimated Hrs Per Day: .25 hour per day Rehab Potential: Guarded Safety Risks/Education Teaching Recipient: Patient Teaching Methods: Discussion Response to Teaching: Verbalize Understanding Education Topics Provided: Results, Recommendations, Plan of Care, Necessity of NPO status Time Speech Therapy Time In: 10:15 Speech Therapy Time Out: 10:30 Total Billed Time: 15 Billed Treatment Time PRECIOUS GacriaRodriguezNAPOLEON ST July 11, 2017 14:47
[2017-07-11 16:00] VITALS: BP 166/92
--- NOTE | 2017-07-11 16:22 | Anesthesia-General Post-Op ---
General Patient Condition Mental Status/LOC: Same as Preop Cardiovascular: Satisfactory Nausea/Vomiting: Absent Respiratory: Satisfactory Pain: Controlled Complications: Absent Post Op Complications Complications None Follow Up Care/Instructions Patient Instructions None needed. Anesthesia/Patient Condition Patient Condition Patient was seen this morning and he was doing well, no complaints, stable vital signs, no apparent adverse anesthesia problems. His swallow eval was seen and he is schedule for another exam tomorrow morning. Will be available if needed. ANA SANABRIA DO July 11, 2017 16:21
[2017-07-11 20:58] VITALS: BP 192/98
[2017-07-11] MEDS ORDERED: lisINopril 20 MG (PRINIVIL) TABLET PO ONE (23:00)
[2017-07-12] VITALS: BP 189/94
[2017-07-12] MEDS: NS IV 1000 ML 1,000 ML IV SCH ×3 (02:41→20:15)
[2017-07-12] MEDS: morphine INJ 4 MG/ML 1 ML (VIAL/SYRINGE) IVP PRN ×2 (02:41→11:43)
[2017-07-12 04:00] VITALS: BP 170/96
--- NOTE | 2017-07-12 06:26 | Progress Note (SOAP) ---
Subjective Date Seen by Provider: July 12, 2017 Time Seen by Provider: 06:20 Subjective/Events-last exam POD #2, s/p C4-7 ACDF Continues to experience dysphagia, scheduled for barium swallow study today Patient admits that he was unable to care for himself prior to surgery, and discharge arrangements for SNF are being made. Review of Systems General: No Chills HEENT: No Dysphasia; Sore Throat, Other (dysphagia) Pulmonary: No Cough Cardiovascular: No: Chest Pain Gastrointestinal: No: Nausea, Vomiting Musculoskeletal: No: neck pain, back pain Neurological: Weakness Objective Exam Vital Signs Date Time Temp Pulse Resp B/P (MAP) Pulse Ox O2 Delivery O2 Flow Rate FiO2 07/12/17 04:00 99.1 107 22 170/96 (120) 92 Room Air 07/12/17 00:00 99.1 97 22 189/94 (125) 93 Room Air 07/11/17 21:00 96 Room Air 07/11/17 20:58 99.4 104 20 192/98 (129) 94 Room Air 07/11/17 16:00 99.8 107 20 166/92 (116) 94 Room Air 07/11/17 12:30 98.7 88 18 157/78 (104) 97 Room Air 07/11/17 09:00 96 Room Air 0.50 07/11/17 08:00 98.1 91 20 165/85 (111) Room Air I & O 07/12/17 07:00 Intake Total 3050 ml Output Total 3225 ml Balance -175 ml Capillary Refill : General Appearance: No Apparent Distress HEENT: Other (Trachea is midline with no significant swelling of surgical site. 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
[2017-07-12] MEDS: LEVOTHYROXINE 88 MCG (LEVOTHORID) TAB PO SCH (06:27)
[2017-07-12] MEDS: MULTIVIT W/MINERALS TAB (THERAGRAN M) PO SCH (06:27)
[2017-07-12] MEDS: DEXAMETHASONE 4 MG/ML SDV (DECADRON) IV SCH ×3 (06:33→21:07)
[2017-07-12] MEDS: TAMSULOSIN 0.4 MG (FLOMAX) CAP PO SCH (07:46)
--- NOTE | 2017-07-12 07:57 | Progress Note (SOAP) ---
Subjective Date Seen by Provider: July 12, 2017 Time Seen by Provider: 07:30 Subjective/Events-last exam Reports he feels fine. He is not swallowing very well still. Swallow study this am. Objective Exam Vital Signs Date Time Temp Pulse Resp B/P (MAP) Pulse Ox O2 Delivery O2 Flow Rate FiO2 07/12/17 04:00 99.1 107 22 170/96 (120) 92 Room Air 07/12/17 00:00 99.1 97 22 189/94 (125) 93 Room Air 07/11/17 21:00 96 Room Air 07/11/17 20:58 99.4 104 20 192/98 (129) 94 Room Air 07/11/17 16:00 99.8 107 20 166/92 (116) 94 Room Air 07/11/17 12:30 98.7 88 18 157/78 (104) 97 Room Air 07/11/17 09:00 96 Room Air 0.50 07/11/17 08:00 98.1 91 20 165/85 (111) Room Air I & O 07/12/17 07:00 Intake Total 3050 ml Output Total 3225 ml Balance -175 ml Capillary Refill : General Appearance: No Apparent Distress Respiratory: Lungs Clear Cardiovascular: Regular Rate, Rhythm Assessment/Plan Assessment/Plan Assess & Plan/Chief Complaint 1. Status post cervical spine stenosis with myelopathy repair -He is under the care of orthopedics 2. Dysphagiaprobably transient -Orthopedics ordered swallow study this morning 07/12 -decadron given this am -Swallow study this am 3. Hypertensionhistory of -We will restart his antihypertensives when he is able to swallow. We will await after swallow study 07-12 -give labetalol 20mg IV to help control bp until po. 4. Hypothyroidism -Initiate levothyroxine 5. Hyperlipidemia Clinical Quality Measures DVT/VTE Risk/Contraindication: Risk Factor Score Per Nursin RFS Level Per Nursing on Admit: 4+=Very High ISI SENA MD July 12, 2017 07:57
[2017-07-12 08:00] VITALS: BP 165/91
--- NOTE | 2017-07-12 08:19 | Anesthesia-General Post-Op ---
General Patient Condition Mental Status/LOC: Same as Preop Cardiovascular: Satisfactory Nausea/Vomiting: Absent Respiratory: Satisfactory Pain: Controlled Complications: Absent Post Op Complications Complications Difficulty swallowing persists. Will be available. Follow Up Care/Instructions Patient Instructions None needed. Anesthesia/Patient Condition Patient Condition Patient is doing well, no complaints, stable vital signs, no apparent adverse anesthesia problems. No complications reported per nursing. LESLIE CORRAL CRNA July 12, 2017 08:19
[2017-07-12] MEDS: raNItidine 50 MG/NS 100 ML IVPB IV SCH ×4 (08:41→13:45)
--- NOTE | 2017-07-12 09:39 | ST Mod Barium Swallow ---
Speech Evaluation-General Medical Diagnosis Cervical Stenosis (s/p ACDF) Onset Date: July 10, 2017 Therapy Diagnosis Therapy Diagnosis: Severe Pharyngeal Dysphagia Precautions Precautions: Aspiration Precautions/Isolations: Fall Prevention, Standard Precautions Referral Referring Physician: Dr. Raciel Tijerina Modified Barium Swallow Evaluation Medical History Pertinent Medical History: Arthritis, HTN, Hypothroidism Current History The patient was admitted on 07/10/2017 and received a cervical spine procedure. Following the procedure, the patient has consistently demonstrated signs/ symptoms of aspiration with all consistencies attempted. Reviewed History: Yes Social History Current Living Status: Alone Speech Mod Barium Swallow Prior Level of Function The patient denied challenges with swallowing prior to his recent cervical spine procedure. The patient reported the consumption of a regular diet with thin liquids at home. Following the cervical spine procedure, the patient has been unable to tolerate swallowing of his own secretions, as well as, consistent signs/symptoms of aspiration with PO intake of any kind with any consistency. At this time, the patient is NPO. Oral Motor Skills Dentition Natural Dentures: Full Lingual Protrusion: Normal Lingual ROM: Normal Lingual Strength: Normal Velum: Normal Volitional Dry Swallow: Yes Voluntary Cough: Yes Can Clear Throat Volitionally: Yes (The patient intermittently expectorates secretions at baseline.) Textures-Lateral View Lateral View Food Presentation: Thin Liquid via Spoon, Honey Liquid via Spoon, Pureed Solids Oral Phase Labial Closure: No Impairment (WFL) Bolus Formation Pooling L/R: No Impairment (WFL) Bolus Formation Placement: No Impairment (WFL) A/P Lingual Propulsion: No Impairment (WFL) Lingual Movement: No Impairment (WFL) Oral Phase Residue: No Impairment (WFL) (Grossly within normal limits.) While the patient displayed minimal premature posterior spillage of bolus material to the vallecular region prior to initiation of the pharyngeal swallow , he demonstrated an overall oral phase within normal limits. Pharyngeal Phase Swallow Response: Mild Impairment (The patient's pharyngeal onset of swallow occurred as bolus material reached the vallecular space (all consistencies).) Base of Tongue: Mild Impairment Epiglottic Movement: Severe Impairment (Due to the posterior pharyngeal wall edema, limited inversion was noted of the epiglottic structure throughout the swallow.) Laryngeal Elevation: Mild Impairment (While the C-Collar was removed for the evaluation, the patient continued to demonstrate reduced laryngeal elevation.) Vallecular Residue: Moderate (All consistencies tested.) Pharyngeal Wall Residue: Moderate (All consistencies tested.) Piriform Sinus Residue: Moderate (All consistencies tested.) Laryngeal Penetration: Moderate (Thin liquid, honey-thick liquid, puree.) Aspiration Observations: Moderate (Thin Liquid.) Other Pharyngeal Observations: Marked pharyngeal edema correlating to the patient's surgical hardware was noted at the region of the cervical spine. The pharyngeal edema resulted in severely reduced pharyngeal contraction, mild to moderately reduced base of tongue retraction, poor epiglottic tilt, and decreased protection of the airway in the presence of bolus material. Deep laryngeal penetration occurred with each consistency tested during and following the swallow due to the pharyngeal edema present. Moderate aspiration occurred with thin liquids following the swallow due to the residual material that remained in the pharynx secondary to the above noted marked edema. While the patient clears his throat in correlation to deeply penetration and aspirated material, the pharyngeal edema does not allow sufficient space for the expectorated material to land (pyriform sinuses, valleculae). Multiple subsequent dry swallows were not effective at clearing residual material visualized on the pharyngeal structures. Summary/Impressions The patient displays severe pharyngeal dysphagia secondary to marked pharyngeal edema restricting swallowing musculature contraction and protection of the airway during the swallow. At this time, the patient should remain NPO. The clinician does not expect the patient's swallowing function to improve until pharyngeal edema is significantly decreased. Speech Short Term Goals Short Term Goals Short Term Goals 1. The patient will tolerate trials with 90% accuracy (9/10 trials) of thin liquid without signs/symptoms of aspiration or laryngeal penetration. Time Frame-STG: Five Days Speech Group Home Goals Group Home Goals 1. The patient will participate in a modified barium swallow evaluation. MET 2. The patient will tolerate a diet of the least restrictive consistency without signs/symptoms of aspiration or laryngeal penetration. Time Frame: One Week Speech-Plan Treatment Plan Speech Therapy Treatment Plan: Continue Plan of Care Continue skilled speech pathology to target improved swallowing safety and return to a safe PO diet. Treatment Duration: July 18, 2017 Frequency: 3 times per week Estimated Hrs Per Day: .25 hour per day Rehab Potential: Guarded Safety Risks/Education Teaching Recipient: Patient (Patient's RN.) Teaching Methods: Discussion Response to Teaching: Verbalize Understanding Education Topics Provided: Results, Recommendation, Plan of Care (Necessity of a Reduction in Pharyngeal Edema) Time Speech Therapy Time In: 09:15 Speech Therapy Time Out: 09:45 Total Billed Time: 30 Billed Treatment Time 1, BI NAPOLEON SIMON July 12, 2017 09:39
[2017-07-12] MEDS ORDERED: BARIUM SUSPENSION 60% (LIQUID EZ PAQUE) 240 ML DOSE PO ONE (09:45)
--- NOTE | 2017-07-12 11:01 | Diagnostic Imaging Report ---
EXAMINATION: Modified barium swallow. INDICATION: Difficulty swallowing. FINDINGS: This study was performed in the presence of Speech Pathologist Mattie. The insurance defense paralegal film reveals postsurgical changes consistent with a recent cervical spine surgical procedure. As noted on the exam of 07/10/2017, there is an orthopedic plate and screw fixation device along the ventral aspect of the cervical spine extending from C4 to C7. The orthopedic hardware seems to be in good position. There does appear to be considerable retropharyngeal edema. The patient was given barium impregnated honey consistency material to swallow. He was able to swallow the material but the epiglottis moved only slightly. The material was transferred from the oral cavity to the esophagus primarily by gravity. There was penetration but no aspiration. Subsequently, the patient was given a small amount of thin consistency barium to swallow. He was able to do this. Again, there was poor initiation of the swallowing mechanism and there was penetration and aspiration with the thin barium. The exam was subsequently terminated. IMPRESSION: The swallowing mechanism is compromised as there was penetration with the honey consistency material and penetration/aspiration with the thin barium. Dictated by: Dictated on workstation # [id number]
[2017-07-12 12:00] VITALS: BP 165/91
--- NOTE | 2017-07-12 13:36 | Physical Therapy Daily Note ---
PT Daily Note-Current Subjective Pt laying Supine in bed upon arrival. Pt agrees to PT although demonstrates confusion at times. Pain Location: No Pain Reported Mental Status Patient Orientation: Person, Confused Attachments: IV Transfers Functional [place] Measure 0=Not Assessed/NA 4=Minimal Assistance 1=Total Assistance 5=Supervision or Setup 2=Maximal Assistance 6=Modified [place] 3=Moderate Assistance 7=Complete IndependenceIRFPAI Quality Coding Scale 6 Independent with activity with or without an assistive device 5 Patient requires set up or clean up by helper. Patient completes activity by themselves 4 Supervision or touching assist (CGA). [place] provide cues , steadying assist 3 The helper provides less than half the effort to complete the activity 2 The helper provides more than half the effort to complete the activity 1 Dependent. The helper does all the effort to complete an activity 7 Patient refused to complete or attempt activity 9 The patient did not perform the activity before the current illness or injury 88 Not attempted due to Medical conditions or safety concerns Scootin Rollin Supine to/from Sit: 3 Sit to/from Stand: 4 Weight Bearing Right Lower Extremity: Right Weight Bearing/Tolerated Left Lower Extremity: Left Weight Bearing/Tolerated Gait Training Distance (FIM): 2=812-34 ft Distance: 85' Gait Level of Assist: 3 Gait Persons Needed: 1 Gait Assistive Device: FWW Pt demonstrates Parkinsonian shuffle and is encouraged to take bigger steps to break this up. Pt also needs continued VC about sequencing and staying within the FWW. Treatments Pt transfers from supine to EOB at Min-Mod A for hand placement and sequencing due to lack of strength and confusion. Pt transfers from EOB to standing at Min -Mod A using FWW. Pt ambulates in hallway using FWW at Min A but needs continual VC for positioning and safety. Pt returns to room due to fatigue but needs assistance to make it into recliner due to fatigue and inability to follow VC for sitting. Assessment Current Status: Fair Progress Pt has difficulty following VC especially as pt fatigues. PT Senior Living Goals Personal Financial Advisor Goals PT Personal Financial Advisor Goals Time Frame: July 19, 2017 Transfers (B,C,W/C) (FIM): 5 Gait (FIM): 5 Gait distance (FIM): 3=150 ft Distance: 200' Gait Level of Assist: 5 Gait Assistive Device: FWW PT Plan Problem List Problem List: Activity Tolerance, Functional Strength, Safety, Balance, Gait, Transfer, Bed Mobility Treatment/Plan Treatment Plan: Continue Plan of Care Treatment Plan: Bed Mobility, Education, Functional Activity Faisal, Functional Strength, Gait, Safety, Therapeutic Exercise, Transfers Treatment Duration: July 19, 2017 Frequency: 6 times per week Estimated Hrs Per Day: .25 hour per day Patient and/or Family Agrees t: Yes Safety Risks/Education Patient Education: Gait Training, Transfer Techniques, Correct Positioning, Safety Issues Teaching Recipient: Patient Teaching Methods: Demonstration, Discussion Response to Teaching: Reinforcement Needed Time/GCodes Time In: 1035 Time Out: 1100 Total Billed Treatment Time: 25 Total Billed Treatment 1, GT x2 (25m) G Codes Necessary: EDUARDO [address] GRADER OPERATOR July 12, 2017 13:36
[2017-07-12] MEDS ORDERED: LABETALOL HCL 20 MG/4 ML VIAL IV PRN (14:45)
[2017-07-12 15:30] VITALS: BP 165/85
[2017-07-12 19:30] VITALS: BP 163/87
[2017-07-12] MEDS: raNItidine 50 MG/NS 50 ML IVPB IV SCH ×2 (21:07)
[2017-07-13] VITALS: BP 168/85
[2017-07-13] MEDS: morphine INJ 4 MG/ML 1 ML (VIAL/SYRINGE) IVP PRN (01:45)
[2017-07-13] MEDS: NS IV 1000 ML 1,000 ML IV SCH ×3 (04:08→20:26)
--- NOTE | 2017-07-13 04:46 | Progress Note (SOAP) ---
Subjective Date Seen by Provider: July 13, 2017 Time Seen by Provider: 04:44 Subjective/Events-last exam POD #3, s/p C4-7 ACDF No complaints at this time Review of Systems General: No Chills Gastrointestinal: No: Nausea Musculoskeletal: No: neck pain, arm pain Neurological: No: Weakness, Numbness, Change in speech Objective Exam Vital Signs Date Time Temp Pulse Resp B/P (MAP) Pulse Ox O2 Delivery O2 Flow Rate FiO2 07/13/17 00:00 97.4 103 18 168/85 (112) 93 Room Air 07/12/17 21:00 Room Air 07/12/17 19:30 98.2 90 20 163/87 (112) 94 Room Air 07/12/17 15:30 98.8 87 20 165/85 (111) 95 Room Air 07/12/17 12:00 98.9 100 20 165/91 (115) 95 Room Air 07/12/17 09:00 92 Room Air 0.50 07/12/17 08:00 97.4 87 22 165/91 (115) 92 Room Air I & O 07/13/17 07:00 Intake Total 1000 ml Output Total 2000 ml Balance -1000 ml Capillary Refill : General Appearance: No Apparent Distress, WD/WN HEENT: Other (Trachea midline with no significant surgical site swelling) Respiratory: No Accessory Muscle Use, No Respiratory Distress Cardiovascular: Normal Peripheral Pulses Gastrointestinal: soft Extremity: Normal Inspection Neurologic/Psychiatric: Alert, Oriented x3, No Motor/Sensory Deficits, Normal Mood/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 Repeat exam is scheduled for today. Will await this study to determine discharge needs. Clinical Quality Measures DVT/VTE Risk/Contraindication: Risk Factor Score Per Nursin RFS Level Per Nursing on Admit: 4+=Very High MARCELINA VELEZ July 13, 2017 04:46
[2017-07-13] MEDS: LEVOTHYROXINE 88 MCG (LEVOTHORID) TAB PO SCH (04:57)
[2017-07-13] MEDS: MULTIVIT W/MINERALS TAB (THERAGRAN M) PO SCH (04:57)
[2017-07-13] MEDS: DEXAMETHASONE 4 MG/ML SDV (DECADRON) IV SCH (05:40)
[2017-07-13] MEDS: raNItidine 50 MG/NS 50 ML IVPB IV SCH ×6 (05:40→22:13)
[2017-07-13 06:19] LABS: BUN/CREATININE RATIO 19; CALCIUM 8.8 MG/DL (8.5-10.1); CARBON DIOXIDE 20 MMOL/L (21-32); CHLORIDE 110 MMOL/L (98-107); CREATININE SERUM 1.15 MG/DL (0.60-1.30); GFR ESTIMATED > 60; GLUCOSE 123 MG/DL (70-105); POTASSIUM 4.1 MMOL/L (3.6-5.0); SODIUM 140 MMOL/L (135-145)
[2017-07-13 08:00] VITALS: BP 142/92
[2017-07-13] MEDS ORDERED: LOTE5GEL OD (08:30)
[2017-07-13] MEDS ORDERED: DORZ10DR8 OU (08:30)
--- NOTE | 2017-07-13 09:38 | Speech Therapy Daily Note ---
Speech Daily Progress Note Subjective Date Seen by Provider: July 13, 2017 Time Seen by Provider: 09:15 The patient was seated upright in bed and greeted the clinician appropriately upon entrance. Prior to bolus trials, the patient was coughing, clearing, and expectorating secretions into a cup. The patient displays an overtly wet and hypopharyngeal vocal quality at baseline. The patient denied odynophagia, however, stated it was "just not comfortable." Objective Thin Liquid (Ice Chips): Two ice chips were provided to the patient. The patient displayed a rigorous cough, red face, watery eyes, and increased respiration immediately following the initial swallow, as well as, retching and expectoration of the material into a cup. Puree: One 1/4 teaspoon of puree was provided to the patient. The patient displayed an immediate retching behavior, throat clearing, and watery eyes. The patient expectorated the material into a cup. The patient's overtly wet vocal quality remained present throughout the trials. The patient continues to demonstrate overt signs/symptoms of aspiration with limited, restricted bolus trials. In the clinician's experience, pharyngeal edema following a cervical spine procedure is usually the most present three to five days following the surgery. If this holds true with this patient, the clinician does not expect the patient's swallowing function to improve for an additional couple of days (at a minimum). The clinician visited with the patient's RN regarding discussions with the patient's primary team for hydration and nutrition status if the patient remains NPO for an extended period. The RN stated she would discuss the results with the patient's physician. Assessment Assessment Current Status: Poor Progress Treatment Plan Continue Plan of Care Speech Short Term Goals Short Term Goals Short Term Goals 1. The patient will tolerate trials with 90% accuracy (9/10 trials) of thin liquid without signs/symptoms of aspiration or laryngeal penetration. Time Frame-STG: Five Days Speech Wharf Labourer Goals Wharf Labourer Goals 1. The patient will participate in a modified barium swallow evaluation. MET 2. The patient will tolerate a diet of the least restrictive consistency without signs/symptoms of aspiration or laryngeal penetration. Time Frame: One Week Speech-Plan Treatment Plan Speech Therapy Treatment Plan: Continue Plan of Care Continue skilled speech pathology to target swallowing safety and return to a safe PO diet consistency. Treatment Duration: July 18, 2017 Frequency: 3 times per week Estimated Hrs Per Day: .25 hour per day Rehab Potential: Guarded Safety Risks/Education Teaching Recipient: Patient Teaching Methods: Discussion Response to Teaching: Verbalize Understanding Education Topics Provided: Necessity of PO status, Importance of Frequent Oral Care Time Speech Therapy Time In: 09:15 Speech Therapy Time Out: 09:30 Total Billed Time: 15 Billed Treatment Time 1HIRAM NAPOLEON SIMON July 13, 2017 09:37
[2017-07-13] MEDS: DORZOLAMIDE/TIMOLOL (COSOPT) 2-0.68% 10 ML BTL OU SCH ×2 (10:23→22:15)
[2017-07-13] MEDS: TAMSULOSIN 0.4 MG (FLOMAX) CAP PO SCH (10:24)
--- NOTE | 2017-07-13 11:22 | Physical Therapy Daily Note ---
PT Daily Note-Current Subjective Patient agrees to PT. Pain Numeric Pain Scale: 0-No Pain Location: No Pain Reported Mental Status Patient Orientation: Confused Attachments: Manzano Catheter, IV Transfers Functional [place] Measure 0=Not Assessed/NA 4=Minimal Assistance 1=Total Assistance 5=Supervision or Setup 2=Maximal Assistance 6=Modified [place] 3=Moderate Assistance 7=Complete IndependenceIRFPAI Quality Coding Scale 6 Independent with activity with or without an assistive device 5 Patient requires set up or clean up by helper. Patient completes activity by themselves 4 Supervision or touching assist (CGA). [place] provide cues , steadying assist 3 The helper provides less than half the effort to complete the activity 2 The helper provides more than half the effort to complete the activity 1 Dependent. The helper does all the effort to complete an activity 7 Patient refused to complete or attempt activity 9 The patient did not perform the activity before the current illness or injury 88 Not attempted due to Medical conditions or safety concerns Transfers (B, C, W/C) (FIM): 4 Scootin Sit to/from Stand: 4 Weight Bearing Right Lower Extremity: Right Weight Bearing/Tolerated Left Lower Extremity: Left Weight Bearing/Tolerated Gait Training Gait (FIM): 2 Distance (FIM): 6=152-32 ft Distance: 100' Gait Level of Assist: 4 Gait Persons Needed: 1 Gait Assistive Device: FWW extreme shuffle gait sequence with forward lean. Skilled verbal instruction for body placement in FWW and to lengthening gait sequence with patient demonstrating the inability to perform safely. Assessment Patient remains up in recliner with chair alarm activated. Patient displays increase in Parkinson's like gait and becomes agitated with VC's for body placement and gait sequence. PT Residential Goals Residential Goals PT Residential Goals Time Frame: July 19, 2017 Transfers (B,C,W/C) (FIM): 5 Gait (FIM): 5 Gait distance (FIM): 3=150 ft Distance: 200' Gait Level of Assist: 5 Gait Assistive Device: FWW PT Plan Treatment/Plan Treatment Plan: Continue Plan of Care Treatment Plan: Bed Mobility, Education, Functional Activity Faisal, Functional Strength, Gait, Safety, Therapeutic Exercise, Transfers Treatment Duration: July 19, 2017 Frequency: 6 times per week Estimated Hrs Per Day: .25 hour per day Patient and/or Family Agrees t: Yes Discharge Recommendations Therapy D/C Recommendations: [facility] Placement, Long-Term (TCU/NH) Time/GCodes Time In: 1050 Time Out: 1103 Total Billed Treatment Time: 13 Total Billed Treatment 1 visit GT 13 min SUDHAKAR BECK PT July 13, 2017 11:22
[2017-07-13 16:13] VITALS: BP 177/88
--- NOTE | 2017-07-13 16:28 | Diagnostic Imaging Report ---
Indication: PEG tube placement Exam: Portable chest at 4:17 PM Findings: There is a feeding tube that is looped back on itself in the gastric fundus. Heart size and pulmonary vascularity are normal. Lungs are clear. There are no effusions or pneumothoraces. Impression: Negative chest. Dictated by: Dictated on workstation # [id number]
[2017-07-13 23:04] VITALS: BP 151/77
--- NOTE | 2017-07-14 05:37 | Progress Note (SOAP) ---
Subjective Date Seen by Provider: July 14, 2017 Time Seen by Provider: 05:33 Subjective/Events-last exam POD #4, s/p C4-7 ACDF Patient with NG Feeding tube in place Patient removed Manzano catheter last night and now has a small meatus tear, and hematuria Review of Systems General: No Chills Genitourinary: Hematuria Musculoskeletal: No: neck pain Neurological: Confusion; No: Numbness Objective Exam Vital Signs Date Time Temp Pulse Resp B/P (MAP) Pulse Ox O2 Delivery O2 Flow Rate FiO2 07/13/17 23:04 99.1 58 20 151/77 (101) 97 Room Air 07/13/17 21:00 Room Air 07/13/17 16:13 98.1 106 18 177/88 (117) 96 Room Air 07/13/17 09:00 Room Air 07/13/17 08:00 96.7 118 18 142/92 (109) 95 Room Air I & O 07/14/17 07:00 Intake Total 50 ml Output Total 1075 ml Balance -1025 ml Capillary Refill : General Appearance: No Apparent Distress HEENT: PERRL/EOMI Neck: Non Tender Respiratory: No Accessory Muscle Use, No Respiratory Distress Cardiovascular: No Edema Extremity: Non Tender, No Calf Tenderness Neurologic/Psychiatric: Alert, No Motor/Sensory Deficits, Normal Mood/Affect Skin: Normal Color, Warm/Dry, Other (incision CDI) Assessment/Plan Assessment/Plan Assess & Plan/Chief Complaint Cervical stenosis with myelopathy Dysphagia Deconditioning Hematuria Will consult Urology. Stable from orthopaedic stance for discharge to [facility] with Tube Feedings Clinical Quality Measures DVT/VTE Risk/Contraindication: Risk Factor Score Per Nursin RFS Level Per Nursing on Admit: 4+=Very High MARCELINA VELEZ July 14, 2017 05:37
[2017-07-14] MEDS: raNItidine 50 MG/NS 50 ML IVPB IV SCH ×6 (06:03→22:00)
[2017-07-14] MEDS: MULTIVIT W/MINERALS TAB (THERAGRAN M) PO SCH (06:04)
[2017-07-14] MEDS: LEVOTHYROXINE 88 MCG (LEVOTHORID) TAB PO SCH (06:04)
[2017-07-14] MEDS: NS IV 1000 ML 1,000 ML IV SCH ×2 (07:20→22:05)
[2017-07-14 08:00] VITALS: BP 171/88
--- NOTE | 2017-07-14 08:13 | Progress Note (SOAP) ---
Subjective Date Seen by Provider: July 14, 2017 Time Seen by Provider: 07:20 Subjective/Events-last exam Dobhoff tube in place and receiving feedings. Dysphagia continues. Objective Exam Vital Signs Date Time Temp Pulse Resp B/P (MAP) Pulse Ox O2 Delivery O2 Flow Rate FiO2 07/13/17 23:04 99.1 58 20 151/77 (101) 97 Room Air 07/13/17 21:00 Room Air 07/13/17 16:13 98.1 106 18 177/88 (117) 96 Room Air 07/13/17 09:00 Room Air I & O 07/14/17 07:00 Intake Total 473 ml Output Total 1350 ml Balance -877 ml Capillary Refill : General Appearance: No Apparent Distress Respiratory: Lungs Clear Cardiovascular: Regular Rate, Rhythm Gastrointestinal: soft Assessment/Plan Assessment/Plan Assess & Plan/Chief Complaint 1. Status post cervical spine stenosis with myelopathy repair -He is under the care of orthopedics 07/14 -DC planning continues. suspect will go to [facility] for SNF 2. Dysphagiaprobably transient -Orthopedics ordered swallow study this morning 07/12 -decadron given this am -Swallow study this am 07/14 -Dobhoff tube in place with feedings for now 3. Hypertensionhistory of -We will restart his antihypertensives when he is able to swallow. We will await after swallow study 07-12 -give labetalol 20mg IV to help control bp until po. 4. Hypothyroidism -Initiate levothyroxine 5. Hyperlipidemia Clinical Quality Measures DVT/VTE Risk/Contraindication: Risk Factor Score Per Nursin RFS Level Per Nursing on Admit: 4+=Very High ISI SENA MD July 14, 2017 08:13
[2017-07-14] MEDS: DORZOLAMIDE/TIMOLOL (COSOPT) 2-0.68% 10 ML BTL OU SCH ×2 (08:35→22:01)
[2017-07-14] MEDS: TAMSULOSIN 0.4 MG (FLOMAX) CAP PO SCH ×2 (08:35→17:56)
[2017-07-14] MEDS: morphine INJ 4 MG/ML 1 ML (VIAL/SYRINGE) IVP PRN ×3 (08:35→20:14)
[2017-07-14 08:51] VITALS: BP 151/77
[2017-07-14] MEDS: RT-ALBUTEROL SULF 2.5 MG/3 ML PRE-MIX VIAL INH SCH ×3 (11:17→19:31)
--- NOTE | 2017-07-14 11:43 | Speech Therapy Daily Note ---
Speech Daily Progress Note Subjective Date Seen by Provider: July 14, 2017 Time Seen by Provider: 11:30 The patient was seated upright in recliner. To note, a NG tube has been placed since the prior treatment session and evaluation. The patient was agreeable to participation in the dysphagia evaluation. To note, the patient was expectorating and choking on secretions at baseline. Objective Thin Liquid (Ice Chips): Two ice chips were provided to the patient. The patient displayed a rigorous cough, red face, watery eyes, and increased respiration immediately following the initial swallow, as well as, retching and expectoration of the material into a cup. The patient stated, "what are you guys trying to do to me." The clinician discussed the necessity of safely re- evaluating the patient's swallowing function. The patient's overtly wet vocal quality remained present throughout the trials. The patient continues to demonstrate overt signs/symptoms of aspiration with limited, restricted bolus trials, as well as, at baseline on his own secretions. The patient remains inappropriate for PO intake and should remain on NG tube feeds for total nutrition, hydration and medication. The above recommendations were provided to the clinician. Assessment Assessment Current Status: Poor Progress Treatment Plan Continue Plan of Care Speech Short Term Goals Short Term Goals Short Term Goals 1. The patient will tolerate trials with 90% accuracy (9/10 trials) of thin liquid without signs/symptoms of aspiration or laryngeal penetration. Time Frame-STG: Five Days Speech Tray Packer Goals Tray Packer Goals 1. The patient will participate in a modified barium swallow evaluation. MET 2. The patient will tolerate a diet of the least restrictive consistency without signs/symptoms of aspiration or laryngeal penetration. Time Frame: One Week Speech-Plan Treatment Plan Speech Therapy Treatment Plan: Continue Plan of Care Continue skilled speech pathology to target swallowing safety. Treatment Duration: July 18, 2017 Frequency: 3 times per week Estimated Hrs Per Day: .25 hour per day Rehab Potential: Guarded Safety Risks/Education Teaching Recipient: Patient (Patient's RN.) Teaching Methods: Discussion Response to Teaching: Verbalize Understanding Education Topics Provided: Results, Recommendations Time Speech Therapy Time In: 11:30 Speech Therapy Time Out: 11:38 Total Billed Time: 8 Billed Treatment Time HIRAM Garcia ELIZABEVERENICE ROJO July 14, 2017 11:42
--- NOTE | 2017-07-14 15:14 | Physical Therapy Daily Note ---
PT Daily Note-Current Subjective Patient is in bed and very confused. Pain Numeric Pain Scale: 0-No Pain Location: No Pain Reported Mental Status Patient Orientation: Confused Attachments: Manzano Catheter Transfers Functional [place] Measure 0=Not Assessed/NA 4=Minimal Assistance 1=Total Assistance 5=Supervision or Setup 2=Maximal Assistance 6=Modified [place] 3=Moderate Assistance 7=Complete IndependenceIRFPAI Quality Coding Scale 6 Independent with activity with or without an assistive device 5 Patient requires set up or clean up by helper. Patient completes activity by themselves 4 Supervision or touching assist (CGA). [place] provide cues , steadying assist 3 The helper provides less than half the effort to complete the activity 2 The helper provides more than half the effort to complete the activity 1 Dependent. The helper does all the effort to complete an activity 7 Patient refused to complete or attempt activity 9 The patient did not perform the activity before the current illness or injury 88 Not attempted due to Medical conditions or safety concerns Transfers (B, C, W/C) (FIM): 4 Scootin Rollin Supine to/from Sit: 4 Sit to/from Stand: 4 Weight Bearing Right Lower Extremity: Right Weight Bearing/Tolerated Left Lower Extremity: Left Weight Bearing/Tolerated Gait Training Gait (FIM): 2 Distance (FIM): 6=946-95 ft Distance: 80' x 2 Gait Level of Assist: 3 Gait Persons Needed: 2 Gait Assistive Device: FWW Parkinson's like gait with forward lean. Assessment Patient requires time to complete all functional tasks and requires skilled verbal instruction for gait sequencing. PT Supervisor Abattoir Goals Half-Way Goals PT Supervisor Abattoir Goals Time Frame: July 19, 2017 Transfers (B,C,W/C) (FIM): 5 Gait (FIM): 5 Gait distance (FIM): 3=150 ft Distance: 200' Gait Level of Assist: 5 Gait Assistive Device: FWW PT Plan Treatment/Plan Treatment Plan: Continue Plan of Care Treatment Plan: Bed Mobility, Education, Functional Activity Faisal, Functional Strength, Gait, Safety, Therapeutic Exercise, Transfers Treatment Duration: July 19, 2017 Frequency: 6 times per week Estimated Hrs Per Day: .25 hour per day Patient and/or Family Agrees t: Yes Time/GCodes Time In: 1412 Time Out: 1435 Total Billed Treatment Time: 23 Total Billed Treatment 1 visit GT x 2 23 min SUDHAKAR BECK PT July 14, 2017 15:14
[2017-07-14 15:30] VITALS: BP 171/82
[2017-07-14] MEDS: NEO/POLY/BAC (NEOSPORIN) OINT 15 GM TUBE TOP SCH (22:00)
[2017-07-15 00:32] VITALS: BP 150/79
[2017-07-15] MEDS: morphine INJ 4 MG/ML 1 ML (VIAL/SYRINGE) IVP PRN ×3 (00:49→20:50)
[2017-07-15] MEDS: LEVOTHYROXINE 88 MCG (LEVOTHORID) TAB PO SCH (05:59)
[2017-07-15] MEDS: raNItidine 50 MG/NS 50 ML IVPB IV SCH ×6 (05:59→21:28)
[2017-07-15] MEDS: MULTIVIT W/MINERALS TAB (THERAGRAN M) PO SCH (06:00)
--- NOTE | 2017-07-15 07:29 | CONSULTATION REPORT ---
DATE OF SERVICE: 07/14/2017 ATTENDING PHYSICIAN: Dr. Cage/Breezy. SUMMARY: An 81-year-old white male recovering slowly from a spine surgery with dysphagia, swelling, tube feeding through the nose. The patient has history of prostatism that was controlled well with Flomax; however, he is unable to take the Flomax and subsequently unable to void and a catheter was inserted. He pulled his catheter last night, had some hematuria, which subsided. Catheter was replaced successfully with no problem. PHYSICAL EXAMINATION: Deferred at this point. IMPRESSION: Urinary retention with BPH and prostatism. PLAN: Keep Manzano catheter until he can take the Flomax back and then we will do trial of voiding at that time. Thank you for letting me participate in the care of this patient. We will follow with you. Job ID: [id number] DocumentID: [id number] Dictated Date: 07/14/2017 09:54:46 Java Development Manager Date: 07/14/2017 13:51:32 Dictated By: CÉSAR RAMOS MD
[2017-07-15] MEDS: RT-ALBUTEROL SULF 2.5 MG/3 ML PRE-MIX VIAL INH SCH ×4 (07:48→19:34)
[2017-07-15 08:00] VITALS: BP 187/89
[2017-07-15] MEDS: TAMSULOSIN 0.4 MG (FLOMAX) CAP PO SCH (08:49)
[2017-07-15] MEDS: DORZOLAMIDE/TIMOLOL (COSOPT) 2-0.68% 10 ML BTL OU SCH ×2 (08:57→20:26)
[2017-07-15] MEDS: NEO/POLY/BAC (NEOSPORIN) OINT 15 GM TUBE TOP SCH ×2 (08:58→20:26)
[2017-07-15] MEDS: NS IV 1000 ML 1,000 ML IV SCH (13:56)
--- NOTE | 2017-07-15 14:08 | Progress Note (SOAP) ---
Subjective Subjective/Events-last exam Pt continues to have dysphagia w/ NG tube feeds. Pulled out catheter, unable to void, unable to take Flomax through NG Review of Systems Date Seen by Provider: July 15, 2017 Time Seen by Provider: 12:00 Objective Exam Last Set of Vital Signs Vital Signs Date Time Temp Pulse Resp B/P (MAP) Pulse Ox O2 Delivery O2 Flow Rate FiO2 07/15/17 10:45 95 Room Air 07/15/17 08:00 98.5 86 18 187/89 (121) 07/12/17 09:00 0.50 Capillary Refill : I&O Intake and Output 07/14/17 23:59 Intake Total 922 ml Output Total 1825 ml Balance -903 ml Intake Oral 0 ml IV Total 52 ml Tube Feeding 647 ml Other 223 ml Output Urine Total 1825 ml General: Alert, Oriented X3, Cooperative Psych/Mental Status: Mood NL Assessment/Plan Assessment/Plan Assessment & Plan 1. Status post cervical spine stenosis with myelopathy repair -He is under the care of orthopedics 07/14 -DC planning continues. suspect will go to [facility] for SNF 2. Dysphagiaprobably transient -Orthopedics ordered swallow study this morning 07/12 -decadron given this am -Swallow study this am 07/14 -Dobhoff tube in place with feedings for now 3. Hypertensionhistory of -We will restart his antihypertensives when he is able to swallow. We will await after swallow study 07-12 -give labetalol 20mg IV to help control bp until po. 4. Hypothyroidism -Initiate levothyroxine 5. Hyperlipidemia 6. Urinary retention - joe cath replaced, unable to take Flomax through NG - continue joe until able to restart Flomax per Dr. Sylvester. Clinical Quality Measures DVT/VTE Risk/Contraindication: Risk Factor Score Per Nursin RFS Level Per Nursing on Admit: 4+=Very High COURTNEY AGUIRRE DO July 15, 2017 14:08
[2017-07-15 15:30] VITALS: BP 132/83
--- NOTE | 2017-07-15 18:11 | Progress Note (SOAP) ---
Subjective Date Seen by Provider: July 15, 2017 Time Seen by Provider: 18:07 Subjective/Events-last exam POD #5, s/p C4-7 ACDF Dysphagia with failed swallow study. Patient currently receiving tube feeds + Review of Systems Pulmonary: No Cough Gastrointestinal: No: Nausea, Vomiting, Abdominal Pain Musculoskeletal: No: neck pain, arm pain, leg pain Neurological: No: Weakness Objective Exam Vital Signs Date Time Temp Pulse Resp B/P (MAP) Pulse Ox O2 Delivery O2 Flow Rate FiO2 07/15/17 15:30 96.8 92 20 132/83 (99) 96 Room Air 07/15/17 14:32 94 Room Air 07/15/17 10:45 95 Room Air 07/15/17 08:00 98.5 86 18 187/89 (121) 98 Room Air 07/15/17 08:00 Room Air 07/15/17 07:48 94 Room Air 07/15/17 00:32 97.6 88 20 150/79 (102) 98 Room Air 07/14/17 20:15 Room Air 07/14/17 19:31 94 Room Air I & O 07/15/17 07:00 Intake Total 1067 ml Output Total 2000 ml Balance -933 ml Capillary Refill : Less Than 3 Seconds General Appearance: No Apparent Distress HEENT: PERRL/EOMI Respiratory: No Respiratory Distress Gastrointestinal: non tender Extremity: Normal Capillary Refill, Non Tender, No Calf Tenderness Neurologic/Psychiatric: Alert, Oriented x3, No Motor/Sensory Deficits, Normal Mood/Affect Skin: Other (Dressing CDI) Assessment/Plan Assessment/Plan Assess & Plan/Chief Complaint Cervical stenosis with myelopathy Dysphagia Deconditioning Urinary retention Awaiting discharge plan at this time. Dr. Sylvester recommended joe catheter to remain in until patient is once again able to take Flomax. Clinical Quality Measures DVT/VTE Risk/Contraindication: Risk Factor Score Per Nursin RFS Level Per Nursing on Admit: 4+=Very High MARCELINA VELEZ July 15, 2017 18:11
[2017-07-15] MEDS: ONDANSETRON 4 MG/2 ML (SDV) Z0FRAN IV PRN (18:29)
[2017-07-16] VITALS: BP 168/78
[2017-07-16] MEDS: RT-ALBUTEROL SULF 2.5 MG/3 ML PRE-MIX VIAL INH PRN ×2 (00:24→13:46)
[2017-07-16] MEDS: morphine INJ 4 MG/ML 1 ML (VIAL/SYRINGE) IVP PRN ×2 (01:53→23:52)
[2017-07-16] MEDS: MULTIVIT W/MINERALS TAB (THERAGRAN M) PO SCH (04:59)
[2017-07-16] MEDS: raNItidine 50 MG/NS 50 ML IVPB IV SCH ×6 (05:19→21:59)
[2017-07-16] MEDS: LEVOTHYROXINE 88 MCG (LEVOTHORID) TAB PO SCH (05:48)
[2017-07-16] MEDS: RT-ALBUTEROL SULF 2.5 MG/3 ML PRE-MIX VIAL INH SCH ×4 (07:33→22:25)
[2017-07-16 08:00] VITALS: BP 151/72
[2017-07-16] MEDS: DORZOLAMIDE/TIMOLOL (COSOPT) 2-0.68% 10 ML BTL OU SCH ×2 (09:04→21:59)
[2017-07-16] MEDS: NEO/POLY/BAC (NEOSPORIN) OINT 15 GM TUBE TOP SCH ×2 (09:05→21:59)
[2017-07-16] MEDS ORDERED: aCETylcysteine 20% (MUCOMYST) 30ML SOLN VIAL INH SCH (14:00)
[2017-07-16 14:04] VITALS: BP 151/72
[2017-07-16 16:03] VITALS: BP 188/88
[2017-07-16] MEDS: aCETylcysteine 20% (MUCOMYST) 30ML SOLN VIAL INH SCH ×2 (18:47→22:25)
[2017-07-17 00:13] VITALS: BP 171/84
[2017-07-17] MEDS: morphine INJ 4 MG/ML 1 ML (VIAL/SYRINGE) IVP PRN ×3 (01:40→22:30)
[2017-07-17] MEDS: aCETylcysteine 20% (MUCOMYST) 30ML SOLN VIAL INH SCH ×6 (02:32→21:35)
[2017-07-17] MEDS: RT-ALBUTEROL SULF 2.5 MG/3 ML PRE-MIX VIAL INH SCH ×6 (02:32→21:38)
[2017-07-17] MEDS: raNItidine 50 MG/NS 50 ML IVPB IV SCH ×6 (05:12→22:09)
[2017-07-17] MEDS: LEVOTHYROXINE 88 MCG (LEVOTHORID) TAB PO SCH (05:23)
[2017-07-17] MEDS: MULTIVIT W/MINERALS TAB (THERAGRAN M) PO SCH (05:23)
--- NOTE | 2017-07-17 06:52 | Progress Note-Urology ---
Progress Note-Urology Progress Notes/Assess & Plan Progress/Assessment & Plan DOING BETTER. UNABLE TO GIVE FLOMAX. PENIS BETTER. ONCE ABLE TO RESUME FLOMAX, DC HERNANDEZ 3 DAYS LATER. WILL SEE PRN Final Diagnosis URINE RETENTION CÉSAR RAMOS MD July 17, 2017 6:52 am
--- NOTE | 2017-07-17 07:32 | Progress Note (SOAP) ---
Subjective Date Seen by Provider: July 17, 2017 Time Seen by Provider: 07:20 Subjective/Events-last exam Over weekend patient has been receiving enteral feedings through Dobhoff tube. Tube went bad this am with clogging. Objective Exam Vital Signs Date Time Temp Pulse Resp B/P (MAP) Pulse Ox O2 Delivery O2 Flow Rate FiO2 07/17/17 02:34 97 Room Air 07/17/17 00:13 98.2 84 20 171/84 (113) 95 Room Air 07/16/17 22:27 95 Room Air 07/16/17 20:00 Room Air 07/16/17 18:50 94 Room Air 07/16/17 16:03 99.0 92 18 188/88 (121) 96 Room Air 07/16/17 14:04 88 95 07/16/17 13:46 95 Room Air 07/16/17 11:26 95 Room Air 07/16/17 08:00 97.7 87 18 151/72 (98) 99 Room Air 07/16/17 07:55 Room Air 07/16/17 07:33 95 Room Air I & O 07/17/17 07:00 Intake Total 1248 ml Output Total 3025 ml Balance -1777 ml Capillary Refill : Less Than 3 Seconds General Appearance: No Apparent Distress Neck: Non Tender Respiratory: Lungs Clear (with rhonchi) Cardiovascular: Regular Rate, Rhythm Gastrointestinal: soft Assessment/Plan Assessment/Plan Assess & Plan/Chief Complaint 1. Status post cervical spine stenosis with myelopathy repair -He is under the care of orthopedics 07/14 -DC planning continues. suspect will go to [facility] for SNF 2. Dysphagiaprobably transient -Orthopedics ordered swallow study this morning 07/12 -decadron given this am -Swallow study this am 07/14 -Dobhoff tube in place with feedings for now 07/17 Dobhoff tube clogged this am -will recheck swallow study and if fails replace Dobhoff tube with enteral feedings. 3. Hypertensionhistory of -We will restart his antihypertensives when he is able to swallow. We will await after swallow study 07-12 -give labetalol 20mg IV to help control bp until po. 4. Hypothyroidism -Initiate levothyroxine 5. Hyperlipidemia 6. Urinary retention - joe cath replaced, unable to take Flomax through NG - continue joe until able to restart Flomax per Dr. Sylvester. Clinical Quality Measures DVT/VTE Risk/Contraindication: Risk Factor Score Per Nursin RFS Level Per Nursing on Admit: 4+=Very High ISI SENA MD July 17, 2017 07:32
[2017-07-17 08:00] VITALS: BP 200/91
--- NOTE | 2017-07-17 08:42 | Speech Therapy Daily Note ---
Speech Daily Progress Note Subjective Date Seen by Provider: July 17, 2017 Time Seen by Provider: 08:25 The patient was seated upright in bed. To note, a NG tube was removed due to a clogged line this morning. Per RN, the patient's physician has ordered a modified barium swallow evaluation. The clinician discussed the appropriateness of a modified barium swallow with the RN, as well as, the information that scheduling of a modified would not be possible until the subsequent day. The RN agreed the patient is more appropriate for a bedside swallow and would need an evaluation earlier than 24 hours in the future. The clinician agreed to complete the bedside swallowing evaluation as soon as possible (8:25). The patient was agreeable to participation in the dysphagia evaluation. To note , the patient was retching, expectorating and choking on his secretions at baseline. The patient has an overtly wet vocal quality at rest. The patient appears to be struggling to handle his own secretions. Objective Thin Liquid (Ice Chips): Two half ice chips were provided to the patient. The patient displayed a rigorous cough, red face, watery eyes, and increased respiration immediately following the initial swallow, as well as, retching and expectoration of the material into a cup. Yellow mucus was spit up by the patient. The patient stated, "why do you keep wanting to choke me?" The clinician discussed the necessity of safely re-evaluating the patient's swallowing function. Puree: One teaspoon of puree was provided to the patient. The patient displayed a rigorous cough, red face, watery eyes, and increased respiration immediately following the initial swallow, as well as, retching and expectoration of the material into a cup. The patient's overtly wet vocal quality remained present throughout the trials. The patient continues to demonstrate overt signs/symptoms of aspiration with limited, restricted bolus trials, as well as, at baseline on his own secretions. The patient remains inappropriate for PO intake and should remain NPO. Due to the overt signs/symptoms of aspiration displayed at bedside, a repeat modified barium swallow remains inappropriate. The clinician discussed with the RN the long-term plan for nutrition, hydration , and medication for the patient. The RN stated the physician wishes to re- place the NG tube. The clinician encourages discussion regarding long-term alternative sources for nutrition, hydration, and medication if the pharyngeal edema does not reduce and overt symptoms of aspiration continue (i.e., PEG tube) . Assessment Assessment Current Status: Poor Progress Treatment Plan Continue Plan of Care Speech Short Term Goals Short Term Goals Short Term Goals 1. The patient will tolerate trials with 90% accuracy (9/10 trials) of thin liquid without signs/symptoms of aspiration or laryngeal penetration. Time Frame-STG: Five Days Speech Secretary To The Vice President Goals Secretary To The Vice President Goals 1. The patient will participate in a modified barium swallow evaluation. MET 2. The patient will tolerate a diet of the least restrictive consistency without signs/symptoms of aspiration or laryngeal penetration. Time Frame: One Week Speech-Plan Treatment Plan Speech Therapy Treatment Plan: Continue Plan of Care Continue skilled speech pathology to target swallowing safety. Treatment Duration: July 18, 2017 Frequency: 3 times per week Estimated Hrs Per Day: .25 hour per day Rehab Potential: Guarded Safety Risks/Education Teaching Recipient: Patient Teaching Methods: Discussion Response to Teaching: Reinforcement Needed Education Topics Provided: Results, Plan of Care Time Speech Therapy Time In: 08:25 Speech Therapy Time Out: 08:35 Total Billed Time: 10 Billed Treatment Time 1, [place] July 17, 2017 08:42
[2017-07-17] MEDS: DORZOLAMIDE/TIMOLOL (COSOPT) 2-0.68% 10 ML BTL OU SCH ×2 (09:16→21:12)
[2017-07-17] MEDS: NEO/POLY/BAC (NEOSPORIN) OINT 15 GM TUBE TOP SCH ×2 (09:16→21:12)
--- NOTE | 2017-07-17 10:12 | Physical Therapy Daily Note ---
PT Daily Note-Current Subjective Patient is in bed and very confused. Pain Numeric Pain Scale: 0-No Pain Location: No Pain Reported Mental Status Patient Orientation: Confused Transfers Functional [place] Measure 0=Not Assessed/NA 4=Minimal Assistance 1=Total Assistance 5=Supervision or Setup 2=Maximal Assistance 6=Modified [place] 3=Moderate Assistance 7=Complete IndependenceIRFPAI Quality Coding Scale 6 Independent with activity with or without an assistive device 5 Patient requires set up or clean up by helper. Patient completes activity by themselves 4 Supervision or touching assist (CGA). [place] provide cues , steadying assist 3 The helper provides less than half the effort to complete the activity 2 The helper provides more than half the effort to complete the activity 1 Dependent. The helper does all the effort to complete an activity 7 Patient refused to complete or attempt activity 9 The patient did not perform the activity before the current illness or injury 88 Not attempted due to Medical conditions or safety concerns Transfers (B, C, W/C) (FIM): 2 Scootin Rollin Supine to/from Sit: 2 Sit to/from Stand: 3 Bed to/from Chair: 3 Patient is very impulsive to sit and is retropulsive with sit to stand transfers Weight Bearing Right Lower Extremity: Right Weight Bearing/Tolerated Left Lower Extremity: Left Weight Bearing/Tolerated Gait Training Distance (FIM): 1=up to 49 ft Distance: 30' x 2 Gait Level of Assist: 3 Gait Persons Needed: 2 Gait Assistive Device: FWW mod assist x 1 with SBA x 1 for safety. Patient demonstrates severe shuffle gait sequence with left LE lag. extended UE's and forward posture with gait training with increase resistance to skilled verbal instruction and tactile cues. Assessment Patient tolerates minimal activity and fatigues very quickly. Patient is up in recliner with chair alarm activated, call light in hand and suction available. PT Senior Living Goals Line Lead Goals PT Line Lead Goals Time Frame: July 28, 2017 Transfers (B,C,W/C) (FIM): 5 Gait (FIM): 5 Gait distance (FIM): 3=150 ft Distance: 200' Gait Level of Assist: 5 Gait Assistive Device: FWW PT Plan Treatment/Plan Treatment Plan: Continue Plan of Care Treatment Plan: Bed Mobility, Education, Functional Activity Faisal, Functional Strength, Gait, Safety, Therapeutic Exercise, Transfers Treatment Duration: July 28, 2017 Frequency: 6 times per week Estimated Hrs Per Day: .25 hour per day Patient and/or Family Agrees t: Yes Safety Risks/Education Patient Education: Safety Issues Teaching Recipient: Patient Teaching Methods: Discussion Response to Teaching: Reinforcement Needed Discharge Recommendations Therapy D/C Recommendations: Senior Care Placement, Nursing Home (TCU/NH) Time/GCodes Time In: 940 Time Out: 952 Total Billed Treatment Time: 12 Total Billed Treatment 1 visit GT 12 min SUDHAKAR BECK PT July 17, 2017 10:12
--- NOTE | 2017-07-17 14:11 | Progress Note-Pre Operative ---
Pre-Operative Progress Note H&P Reviewed The H&P was reviewed, patient examined and no changes noted. Date Seen by Provider: July 17, 2017 Time Seen by Provider: 10:05 Date H&P Reviewed: July 10, 2017 Time H&P Reviewed: 14:11 Pre-Operative Diagnosis: Aspiration REBA AHUJA MD July 17, 2017 2:11 pm
--- NOTE | 2017-07-17 14:11 | Progress Note-Standard ---
Standard Progress Note Progress Notes/Assess & Plan Date Seen by Provider: July 17, 2017 Time Seen by Provider: 10:35 Progress/Assessment & Plan I have been asked to see this gentleman with postoperative aspiration pneumonia , in need of PEG tube to facilitate gastric feeding. On examination, he has postoperative edema involving the left side of his neck and his voice is slightly hoarse. Abdominal examination reveals postoperative changes from cholecystectomy, with no incisional hernia. I have discussed the procedure details with him and he seems to be in agreement. Final Diagnosis Aspiration pneumonia. REBA AHUJA MD July 17, 2017 2:11 pm
--- NOTE | 2017-07-17 14:12 | Progress Note (SOAP) ---
Subjective Date Seen by Provider: July 17, 2017 Time Seen by Provider: 13:05 Subjective/Events-last exam Feeling ok, hands and arms feel better. Failed his swallow test today again. Objective Exam Vital Signs Date Time Temp Pulse Resp B/P (MAP) Pulse Ox O2 Delivery O2 Flow Rate FiO2 07/17/17 12:28 94 Room Air 07/17/17 08:27 Room Air 07/17/17 08:00 98.7 93 20 200/91 (127) 95 Room Air 07/17/17 07:25 94 Room Air 07/17/17 02:34 97 Room Air 07/17/17 00:13 98.2 84 20 171/84 (113) 95 Room Air 07/16/17 22:27 95 Room Air 07/16/17 20:00 Room Air 07/16/17 18:50 94 Room Air 07/16/17 16:03 99.0 92 18 188/88 (121) 96 Room Air I & O 07/17/17 07:00 Intake Total 1248 ml Output Total 3025 ml Balance -1777 ml Capillary Refill : Less Than 3 Seconds General Appearance: No Apparent Distress Neck: Supple, Other (phonation ok, no stridor, mild neck swelling, INcision ok.) Assessment/Plan Assessment/Plan Assess & Plan/Chief Complaint Cervical Spondylosis with myelopathy Cervical Stenosis Cervical Radiculopathy dysphagia Plan: Will sign off care to Dr Baldwin. Follow up with me in 2 -3 weeks. Agree with PEG tube. Clinical Quality Measures DVT/VTE Risk/Contraindication: Risk Factor Score Per Nursin RFS Level Per Nursing on Admit: 4+=Very High AMA MOON MD July 17, 2017 2:12 pm
[2017-07-17] MEDS ORDERED: ceFAZolin INJECTION 1,000 MG in NS (IVPB) 50 ML IV NR (14:15)
[2017-07-17] MEDS ORDERED: NS (IVPB) 50 ML ONE (14:27)
[2017-07-17] MEDS ORDERED: ceFAZolin 1,000 MG (ANCEF) VIAL ONE (14:27)
[2017-07-17] MEDS: LACTATED RINGERS 1,000 ML IV SCH (15:30)
[2017-07-17] MEDS ORDERED: BUP/EPI 0.5% 1:200,000 (SENSORCAINE) 30 ML VIAL ONE (15:30)
[2017-07-17] MEDS ORDERED: PROPOFOL INJECTION 50 ML IV ONE (15:58)
--- NOTE | 2017-07-17 16:36 | Operative Report ---
Operative Report Date of Procedure/Surgery July 17, 2017 Surgeon (s) REBA AHUJA MD Geographic Information Systems Engineer (s): N/A Post-Operative Diagnosis Aspiration pneumonia Procedure Performed EGD with PEG tube placement Description of Procedure Anesthesia Type: MAC Estimated blood loss (mL): Minimal Specimen(s) collected/removed none Description of the Procedure indication for the procedure: This gentleman underwent stabilization of the cervical spine using hardware a week ago. He has developed severe dysphagia with confirmed aspiration. Therefore, I was asked to place a PEG tube to facilitate gastric feeding. Informed consent was obtained after reviewing the procedure in detail. Description of procedure: He was brought to the operating room and our ARTISTIC ASSOCIATE administered sedation, monitoring his vital signs. A gram of Ancef was administered intravenously as prophylaxis against infection The flexible gastroscope was introduced into the stomach and by indentation on the anterior abdominal wall, a guidewire was introduced using the peel-away sheath. It was then snared using standard technique and the guidewire brought out of the oral cavity. A 20 [place] PEG tube was then connected to the guidewire, being railroaded back into the stomach. Endoscopy was performed, confirming satisfactory placement of the flange of the PEG tube. The attachments were then connected to the PEG tube and a dressing applied underneath. He tolerated the procedure reasonably well and was taken to the recovery room in a stable condition. Findings of the Procedure See op report Allergies and Home Medications Allergies Coded Allergies: No Known Drug Allergies (Unverified , 10/25/12) Home Medications Aspirin 81 Mg Tab.chew, 162 MG PO DAILY, (Reported) TAKE 2 (81MG) TABS Dorzolamide HCl/Timolol Maleat 10 Ml Drops, 1 DROP OU BID, (Reported) Famotidine 20 Mg Tablet, 20 MG PO BID, (Reported) Glycerin/Propylene Glycol 30 Ml Drops, 1 DROP OU QID PRN for DRY EYES, (Reported ) Levothyroxine Sodium 88 Mcg Tablet, 88 MCG PO DAILY, (Reported) Loteprednol Etabonate 5 Gm Drops.gel, 1 DROP OD DAILY, (Reported) Metoprolol Succinate 100 Mg Tab.er.24h, 100 MG PO DAILY, (Reported) Naproxen Sodium 220 Mg Tablet, 220 MG PO DAILY, (Reported) Pravastatin Sodium 40 Mg Tablet, 40 MG PO DAILY, (Reported) Tamsulosin HCl 0.4 Mg Cap.er.24h, 0.4 MG PO DAILY, (Reported) Patient Home Medication List Home Medication List Reviewed: Yes REBA AHUJA MD July 17, 2017 4:36 pm
[2017-07-17 17:25] VITALS: BP 158/94
[2017-07-17 23:29] VITALS: BP 157/78
[2017-07-18] MEDS: LACTATED RINGERS 1,000 ML IV SCH (00:19)
[2017-07-18] MEDS: aCETylcysteine 20% (MUCOMYST) 30ML SOLN VIAL INH SCH ×4 (01:33→10:27)
[2017-07-18] MEDS: RT-ALBUTEROL SULF 2.5 MG/3 ML PRE-MIX VIAL INH SCH ×3 (01:38→10:27)
[2017-07-18] MEDS: morphine INJ 4 MG/ML 1 ML (VIAL/SYRINGE) IVP PRN (02:55)
[2017-07-18 03:02] VITALS: BP 144/81
[2017-07-18] MEDS: raNItidine 50 MG/NS 50 ML IVPB IV SCH ×2 (05:23)
[2017-07-18] MEDS: MULTIVIT W/MINERALS TAB (THERAGRAN M) PO SCH (05:23)
[2017-07-18] MEDS: LEVOTHYROXINE 88 MCG (LEVOTHORID) TAB PO SCH (05:23)
--- NOTE | 2017-07-18 07:34 | Progress Note (SOAP) ---
Subjective Date Seen by Provider: July 18, 2017 Time Seen by Provider: 07:30 Subjective/Events-last exam He has PEG tube now in place and is receiving nutrition. He doesn't complaint of any SOB. Objective Exam Vital Signs Date Time Temp Pulse Resp B/P (MAP) Pulse Ox O2 Delivery O2 Flow Rate FiO2 07/18/17 07:01 94 Room Air 07/18/17 03:02 99.0 99 18 144/81 (102) 95 Room Air 07/18/17 01:38 92 Room Air 07/17/17 23:29 98.4 111 22 157/78 (104) 97 Room Air 07/17/17 21:38 93 Room Air 07/17/17 20:00 Room Air 07/17/17 18:43 99 Nasal Cannula 4.00 07/17/17 17:25 98.9 96 20 158/94 (115) 100 Nasal Cannula 2.00 07/17/17 12:28 94 Room Air 07/17/17 08:27 Room Air 07/17/17 08:00 98.7 93 20 200/91 (127) 95 Room Air I & O 07/18/17 07:00 Intake Total 102 ml Output Total 1300 ml Balance -1198 ml Capillary Refill : Less Than 3 Seconds General Appearance: No Apparent Distress Neck: Non Tender Respiratory: No Accessory Muscle Use, No Respiratory Distress, Rhonci Cardiovascular: Regular Rate, Rhythm Gastrointestinal: soft Assessment/Plan Assessment/Plan Assess & Plan/Chief Complaint 1. Status post cervical spine stenosis with myelopathy repair -He is under the care of orthopedics 07/14 -DC planning continues. suspect will go to [facility] for SNF 2. Dysphagiaprobably transient -Orthopedics ordered swallow study this morning 07/12 -decadron given this am -Swallow study this am 07/14 -Dobhoff tube in place with feedings for now 07/17 Dobhoff tube clogged this am -will recheck swallow study and if fails replace Dobhoff tube with enteral feedings. 07/[address] -will check on giving bolus feedings in preparation to transfer to [facility] 3. Hypertensionhistory of -We will restart his antihypertensives when he is able to swallow. We will await after swallow study 07-12 -give labetalol 20mg IV to help control bp until po. 4. Hypothyroidism -Initiate levothyroxine 5. Hyperlipidemia 6. Urinary retention - joe cath replaced, unable to take Flomax through NG - continue joe until able to restart Flomax per Dr. Sylvester. Clinical Quality Measures DVT/VTE Risk/Contraindication: Risk Factor Score Per Nursin RFS Level Per Nursing on Admit: 4+=Very High ISI SENA MD July 18, 2017 07:34
[2017-07-18 10:10] VITALS: BP 190/91
--- NOTE | 2017-07-18 10:55 | Discharge Inst-Skilled Nursing ---
Discharge [facility]-Skilled NF Chief Complaint Cervical neck surgery on July 11, 2017. Currently with PEG tube feedings due to dysphagia following surgery. In need of further SNF. Consult/Follow Up/Orders Follow Up Appt.: Dr Sena following release from [facility] Skilled NF Admit to: Via [facility] Certification ([facility]) I certify that SNF services are required to be given on an inpatient basis because of the above named patient's need for custodial care on a continuing basis for the conditions(s) for which he/she was receiving inpatient hospital services prior to his/her transfer to the SNF. Nursing Home Facility Order: Nursing Services, Fuel Assembler-Evaluate & Treat, Physical Therapy-Evaluate & Treat, Speech Language-Evaluate & Treat Discharge Diet: Tube Feeding (5 times a day along with water boluses (based upon dietary recommendations)) Daily Activity as Tolerated: No New & Resume Previous Orders Isi Sena July 18, 2017 10:53 ISI SENA MD July 18, 2017 10:55
[2017-07-18 11:32] LABS: BASOPHILS % (AUTO) 0 % (0-10); EOSINOPHILS # (AUTO) 0.2 10^3/uL (0.0-0.3); EOSINOPHILS % (AUTO) 2 % (0-10); HEMATOCRIT 39 % (40-54); HEMOGLOBIN 13.1 G/DL (13.3-17.7); LYMPHOCYTES # (AUTO) 1.6 X 10^3 (1.0-4.0); LYMPHOCYTES % (AUTO) 14 % (12-44); MEAN CORPUSCULAR HEMOGLOBIN 30 PG (25-34); MEAN CORPUSCULAR HGB CONC 34 G/DL (32-36); MEAN CORPUSCULAR VOLUME 89 FL (80-99); MEAN PLATELET VOLUME 11.4 FL (7.4-10.4); MONOCYTES # (AUTO) 0.8 X 10^3 (0.0-1.0); MONOCYTES % (AUTO) 7 % (0-12); NEUTROPHILS # (AUTO) 8.7 X 10^3 (1.8-7.8); NEUTROPHILS % (AUTO) 77 % (42-75); PLATELET COUNT 240 10^3/uL (130-400); RED BLOOD COUNT 4.33 10^6/uL (4.35-5.85); RED CELL DISTRIBUTION WIDTH 12.8 % (10.0-14.5); WHITE BLOOD COUNT 11.4 10^3/uL (4.3-11.0)
--- NOTE | 2017-07-18 11:39 | Physical Therapy Daily Note ---
PT Daily Note-Current Subjective Patient agrees to PT. Still confused. Pain Numeric Pain Scale: 0-No Pain Location: No Pain Reported Mental Status Patient Orientation: Confused Attachments: PEG Tube, Manzano Catheter Transfers Functional [place] Measure 0=Not Assessed/NA 4=Minimal Assistance 1=Total Assistance 5=Supervision or Setup 2=Maximal Assistance 6=Modified [place] 3=Moderate Assistance 7=Complete IndependenceIRFPAI Quality Coding Scale 6 Independent with activity with or without an assistive device 5 Patient requires set up or clean up by helper. Patient completes activity by themselves 4 Supervision or touching assist (CGA). [place] provide cues , steadying assist 3 The helper provides less than half the effort to complete the activity 2 The helper provides more than half the effort to complete the activity 1 Dependent. The helper does all the effort to complete an activity 7 Patient refused to complete or attempt activity 9 The patient did not perform the activity before the current illness or injury 88 Not attempted due to Medical conditions or safety concerns Transfers (B, C, W/C) (FIM): 3 Scootin Rollin Supine to/from Sit: 3 Sit to/from Stand: 3 Bed to/from Chair: 3 mod assist due to weakness and retropulsive with sit to stand transfers Weight Bearing Right Lower Extremity: Right Weight Bearing/Tolerated Left Lower Extremity: Left Weight Bearing/Tolerated Gait Training Gait (FIM): 2 Distance (FIM): 5=667-97 ft Distance: 50' Gait Level of Assist: 3 Gait Persons Needed: 2 Gait Assistive Device: FWW mod assist x 1 for safety and SBA x 1 for safety with patient displaying extended UE's and festinating, shuffle gait sequence. Patient requires skilled verbal instruction for body placement in FWW and for sequencing his gait. Patient becomes agitated during this process. Assessment Patient requires time to complete all functional tasks due to weakness and diminished coordination. Plan dismissal to [place] this week. PT Cattle Shipper Goals Cattle Shipper Goals PT Cattle Shipper Goals Time Frame: July 28, 2017 Transfers (B,C,W/C) (FIM): 5 Gait (FIM): 5 Gait distance (FIM): 3=150 ft Distance: 200' Gait Level of Assist: 5 Gait Assistive Device: FWW PT Plan Treatment/Plan Treatment Plan: Continue Plan of Care Treatment Plan: Bed Mobility, Education, Functional Activity Faisal, Functional Strength, Gait, Safety, Therapeutic Exercise, Transfers Treatment Duration: July 28, 2017 Frequency: 6 times per week Estimated Hrs Per Day: .25 hour per day Patient and/or Family Agrees t: Yes Time/GCodes Time In: 1030 Time Out: 1053 Total Billed Treatment Time: 23 Total Billed Treatment 1 visit GT x 2 23 min SUDHAKAR BECK PT July 18, 2017 11:39
[2017-07-18 11:47] LABS: ALBUMIN 3.8 GM/DL (3.2-4.5); BILIRUBIN,TOTAL 1.3 MG/DL (0.1-1.0); CALCIUM 9.6 MG/DL (8.5-10.1); CREATININE SERUM 1.29 MG/DL (0.60-1.30); POTASSIUM 4.4 MMOL/L (3.6-5.0); TOTAL PROTEIN 7.1 GM/DL (6.4-8.2)
--- NOTE | 2017-07-18 11:48 | Progress Note-Standard ---
Standard Progress Note Progress Notes/Assess & Plan Date Seen by Provider: July 18, 2017 Time Seen by Provider: 08:55 Progress/Assessment & Plan I have been asked to see this gentleman with postoperative aspiration pneumonia , in need of PEG tube to facilitate gastric feeding. On examination, he has postoperative edema involving the left side of his neck and his voice is slightly hoarse. Abdominal examination reveals postoperative changes from cholecystectomy, with no incisional hernia. I have discussed the procedure details with him and he seems to be in agreement. 07/18/17: Patient seen earlier. Tube feeding has been initiated. He appears to be confused and combative, being watched by a chief nursing executive. Final Diagnosis Aspiration. Confusion status REBA AHUJA MD July 18, 2017 11:48
--- NOTE | 2017-07-18 13:04 | Anesthesia-General Post-Op ---
General Significant Intra-Op Events Notes pt continues to be confused Patient Condition Mental Status/LOC: Same as Preop Cardiovascular: Satisfactory Nausea/Vomiting: Absent Respiratory: Satisfactory Pain: Controlled Complications: Absent Post Op Complications Complications None Follow Up Care/Instructions Patient Instructions None needed. Anesthesia/Patient Condition Patient Condition Patient is doing well, no complaints, stable vital signs, no apparent adverse anesthesia problems. No complications reported per nursing. ALY GLORIA CRNA July 18, 2017 13:04
[2017-07-18 14:16] VITALS: BP 190/91
--- NOTE | 2017-08-16 08:11 | Discharge Summary ---
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 Had Speech Therapy and swallow eval post-op, with some persistent dysphagia. PEG tub placed. Readied for transfer to SNF. Procedures C4-7 ACDF PEG tube placement Consultations Urology Medicine Surgery Discharge Physical Examination Allergies: Coded Allergies: No Known Drug Allergies (Unverified , 10/25/12) General Appearance: Alert, Oriented X3, Cooperative Discharge Home Medications Reviewed and agree with Discharge Medication list on patient's Discharge Instruction sheet Instructions to Patient/Family Please see electronic discharge instructions given to patient. Clinical Quality Measures DVT/VTE Risk/Contraindication: Risk Factor Score Per Nursin RFS Level Per Nursing on Admit: 4+=Very High AMA MOON MD Aug 16, 2017 08:11
[2017-08-22] MEDS ORDERED: LORA1TAB PEG (09:06)
[2017-08-22] MEDS ORDERED: ZIPR20CA23 PO (12:49)
== END 2017-07-18 14:21 | DRG 472 ==
LOC: 4TH 09:56 → SURG 09:57 → EDSTATUS 12:45 → 4TH 15:10
PROVIDERS: ADMIT Orthopaedic Surgery Orthopaedic Surgery of the Spine; ATTEND Orthopaedic Surgery Orthopaedic Surgery of the Spine
PROC: 0RG20A0 Fusion of 2 or more Cervical Vertebral Joints with Interbody Fusion Device, Anterior Approach, Anterior Column, Open Approach (ICD-10-PCS; principal; 2017-07-10 12:40)
PROC: 0DH63UZ Insertion of Feeding Device into Stomach, Percutaneous Approach (ICD-10-PCS; 2017-07-17)
DX: M48.02 Spinal stenosis, cervical region (principal); M47.12 Other spondylosis with myelopathy, cervical region; M47.22 Other spondylosis with radiculopathy, cervical region; M50.321 Other cervical disc degeneration at C4-C5 level; R13.13 Dysphagia, pharyngeal phase; J39.2 Other diseases of pharynx; S37.33XA Laceration of urethra, initial encounter; R31.9 Hematuria, unspecified; F15.93 Other stimulant use, unspecified with withdrawal; R51 Headache; R41.0 Disorientation, unspecified; N40.1 Benign prostatic hyperplasia with lower urinary tract symptoms; R33.8 Other retention of urine; I25.10 Atherosclerotic heart disease of native coronary artery without angina pectoris; I10 Essential (primary) hypertension; E78.5 Hyperlipidemia, unspecified; E03.9 Hypothyroidism, unspecified; M19.91 Primary osteoarthritis, unspecified site; Y84.6 Urinary catheterization as the cause of abnormal reaction of the patient, or of later complication, without mention of misadventure at the time of the procedure; Z87.891 Personal history of nicotine dependence; Z95.5 Presence of coronary angioplasty implant and graft; Z96.652 Presence of left artificial knee joint; Z94.7 Corneal transplant status
CPT/HCPCS: 36415; 71045; 74230; 80048; 80053; 85025; 87081; 94640; 94664; 94760; 94799

== ENCOUNTER 2017-08-02 11:09 | Inpatient (IN) | payer MEDICARE, OTHER ==
[~2017-08-02] VITALS: Ht 182.9 cm; Wt 81.4 kg
[~2017-08-02 11:09] MED LIST changes: -ACETAMINOPHEN 325 MG TABLET/CAPLET (TYLENOL) PO PRN; -DOCUSATE SODIUM 100 MG (COLACE) CAP PO PRN; +DORZ10DR8 OU; -HYDROcodone/APAP 5 MG/325 MG (LORTAB) TAB PO PRN; +LOTE5GEL OD; -MILK OF MAGNESIA 400 MG/5 ML 30 ML UDC PO PRN; -PROMETHAZINE 25 MG (PHENERGAN) TAB PO PRN; -ceFAZolin 2 GM IV Premixed 50 ML IV ONE
--- OUTSIDE RECORDS SUMMARY | 2017-08-02 11:16 | XMS REPORT | Continuity of Care Document ---
Author Author [facility] Organization [facility] Address Unknown Phone Unavailable Allergies Active Description Code Type Severity Reaction Onset Reported/Identified Relationship to Patient Clinical Status Yes No Known Drug Allergies [id number] Drug Allergy Unknown N/A 10/25/2012 Medications There is no data. Problems Date Dx Coded Attending Type Code Diagnosis Diagnosed By 05/01/2013 KEZIA MORALES MD, FACC FACP CCDS Ot 242.90 THYROTOX NOS NO CRISIS 05/01/2013 ANDREW ASTORGA FACC ALI FACP CCDS Ot 285.9 ANEMIA NOS 05/01/2013 ANDREW ASTORGA FACC ALI FACP CCDS Ot 365.9 GLAUCOMA NOS 05/01/2013 KEZIA MORALES MD, FACC FACP CCDS Ot 403.90 HYPTNSV CHR KID DIS, UNSPEC, W CHR KD ST 05/01/2013 KEZIA MORALES MD, FACC FACP CCDS Ot 414.01 CORONARY ATHEROSCLEROSIS OF [place] CORON 05/01/2013 KEZIA MORALES MD, FACC FACP CCDS Ot 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 [place] 05/01/2013 ANDREW ASTORGA FACC ALI FACP CCDS Ot 585.9 CHRONIC KIDNEY DISEASE, UNSPECIFIED 05/01/2013 ANDREW ASTORGA FACC ALI FACP CCDS Ot V58.69 OT MED,LT,CURRENT USE [...] FACP CCDS Ot 414.01 CORONARY ATHEROSCLEROSIS OF [place] CORON 06/19/2013 ANDREW ASTORGA FACC ALI FACP CCDS Ot 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 [place] 06/19/2013 ANDREW FERREIRA, KEZIA FERREIRAP CCDS Ot 426.4 RT BUNDLE BRANCH BLOCK 06/19/2013 ANDREW ASTORGA FACC, KEZIA FACP CCDS Ot 585.3 CHRONIC KIDNEY DISEASE, STAGE III (MODER 06/19/2013 ANDREW ASTORGA FACC, KEZIA FACP CCDS Ot 786.59 CHEST PAIN NEC 06/19/2013 ANDREW ASTORGA FACC, [facility] CCD[facility] Ot V15.82 HISTORY OF TOBACCO USE 06/19/2013 ANDREW ASTORGA FACC, KEZIA FACP CCDS Ot V45.82 PERCUTANEOUS TRANSLUM CORON ANGIOPLASTY 06/19/2013 ANDREW ASTORGA FACC, KEZIA FACP CCDS Ot V58.63 LONG-TERM(CURRENT)USE OF ANTIPLATELET/AN 06/19/2013 ANDREW ASTORGA FACC, KEZIA [facility] CCD[facility] Ot V58.69 OTH MED,LT,CURRENT USE 01/24/2015 [...] MD Ot Z01.810 02/04/2015 AME RODRIGEZ MD Ot Z01.811 02/04/2015 AME RODRIGEZ MD Ot [...] CARDIAC MURMURS NEC 08/26/2015 ANDREW ASTORGA FACMercedes, KEZIA FACP CCDS Ot 786.59 CHEST PAIN NEC 08/26/2015 ANDREW ASTORGA FACMercedes, ALI FACP CCDS Ot 785.2 CARDIAC MURMURS NEC 08/26/2015 ANDREW ASTORGA FACMercedes, ALI FACP CCDS Ot 786.59 CHEST PAIN NEC 08/26/2015 DREW MARTINEZ MD Ot 715.36 LOC OSTEOARTH NOS-L/LEG 08/26/2015 DREW MARTINEZ MD Ot 719.46 JOINT PAIN-L/LEG 08/26/2015 RAIN SATORGA, AME Herbert Ot M17.12 UNILATERAL PRIMARY OSTEOARTHRITIS, [...] ENCOUNTER FOR OTHER SPECIFIED SURGICAL A 08/26/2015 MARISOL ROSE MD Ot H59.313 POSTPROC HEMOR/HEMTOM OF EYE AND ADNEXA 08/26/2015 MARISOL ROSE MD T Ot H59.313 POSTPROC HEMOR/HEMTOM OF EYE AND ADNEXA 10/16/2015 ANDREW ASTORGA FACC, KEZIA FACP CCDS Ot 785.2 CARDIAC MURMURS NEC 10/16/2015 ANDREW ASTORGA FACC, KEZIA FACP CCDS Ot 786.59 CHEST PAIN NEC 10/16/2015 ANDREW ASTORGA FACC, ALI FACP [...] Z01.812 ENCOUNTER FOR PREPROCEDURAL LABORATORY E 10/16/2015 RAIN ASTORGA, AME Herbert Ot Z11.2 ENCOUNTER FOR SCREENING FOR OTHER BACTER 10/16/2015 AME RODRIGEZ MD Ot M48.07 SPINAL STENOSIS, LUMBOSACRAL REGION 10/16/2015 AME RODRIGEZ MD Ot Z48.89 ENCOUNTER FOR OTHER SPECIFIED SURGICAL A 10/19/2015 CHANCE CARRENO FINISHER POLISHER Ot E78.4 OTHER HYPERLIPIDEMIA 10/19/2015 CHANCE CARRENO FINISHER POLISHER Ot I10 ESSENTIAL (PRIMARY) HYPERTENSION 10/19/2015 CHANCE CARRENO FINISHER POLISHER Ot I25.10 ATHSCL HEART DISEASE OF [place] CORONARY 10/19/2015 CHANCE CARRENO FINISHER POLISHER Ot 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 10/19/2015 ANDREW ASTORGA FACC, ALI FACP CCDS Ot 785.2 CARDIAC MURMURS NEC 10/19/2015 ANDREW ASTORGA FACC, ALI FACP CCDS Ot 786.59 CHEST PAIN NEC 10/19/2015 ANDREW ASTORGA FACMercedes, ALI FACP CCDS Ot 785.2 CARDIAC MURMURS NEC 10/19/2015 ANDREW ASTORGA FACC, ALI FACP CCDS Ot 786.59 CHEST PAIN NEC 10/19/2015 DREW MARTINEZ MD Ot 715.36 LOC OSTEOARTH NOS-L/LEG 10/19/2015 RDEW MARTINEZ MD Ot 719.46 JOINT PAIN-L/LEG 10/19/2015 AME RODRIGEZ MD Ot M17.12 UNILATERAL PRIMARY OSTEOARTHRITIS, LEFT 10/19/2015 RAIN ASTORAG, AME Herbert Ot R53.83 OTHER FATIGUE 10/19/2015 [...] SPECIFIED SURGICAL A 10/19/2015 BAIMA, CHANCE L FINISHER POLISHER Ot E78.4 OTHER HYPERLIPIDEMIA 10/19/2015 BAIMA, CHANCE L FINISHER POLISHER Ot I10 ESSENTIAL (PRIMARY) HYPERTENSION 10/19/2015 FLAKOMA, CHANCE L FINISHER POLISHER Ot I25.10 ATHSCL HEART DISEASE OF [place] CORONARY 10/19/2015 BAIMA, CHANCE L FINISHER POLISHER Ot 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 10/19/2015 BAIMA, CHANCE L FINISHER POLISHER Ot I25.10 ATHSCL HEART DISEASE OF [place] CORONARY 10/19/2015 BAIMA, CHANCE L FINISHER POLISHER Ot E78.4 OTHER HYPERLIPIDEMIA 10/19/2015 BAIMA, CHANCE L FINISHER POLISHER Ot I10 ESSENTIAL (PRIMARY) HYPERTENSION 10/19/2015 BAIMA, CHANCE L FINISHER POLISHER Ot I25.10 ATHSCL HEART DISEASE OF [place] CORONARY 10/19/2015 BAIMA, CHANCE L FINISHER POLISHER Ot 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 10/20/2015 BAIMA, CHANCE L FINISHER POLISHER Ot I25.10 ATHSCL HEART DISEASE OF [place] CORONARY 10/21/2015 BAIMA, CHANCE L FINISHER POLISHER Ot E78.4 OTHER HYPERLIPIDEMIA 10/21/2015 BAIMA, CHANCE L FINISHER POLISHER Ot I10 ESSENTIAL (PRIMARY) HYPERTENSION 10/21/2015 BAIMA, CHANCE L FINISHER POLISHER Ot I25.10 ATHSCL HEART DISEASE OF [place] CORONARY 10/21/2015 BAIMA, CHANCE L FINISHER POLISHER Ot 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 10/23/2015 WAICHANCE Mary FINISHER POLISHER Ot E78.4 OTHER HYPERLIPIDEMIA 10/23/2015 FLAKOMA CHANCE L FINISHER POLISHER Ot I10 ESSENTIAL (PRIMARY) HYPERTENSION 10/23/2015 WAI CHANCE L FINISHER POLISHER Ot I25.10 ATHSCL HEART DISEASE OF [place] CORONARY 10/23/2015 CHANCE CARRENO FINISHER POLISHER Ot 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 10/27/2015 ANDREW ASTORGA FACC, ALI FACP CCDS Ot 785.2 CARDIAC MURMURS NEC 10/27/2015 ANDREW ASTORGA FACC, ALI FACP CCDS Ot 786.59 CHEST PAIN NEC 10/27/2015 ANDREW ASTORGA FACC, ALI FACP CCDS Ot 785.2 CARDIAC MURMURS NEC 10/27/2015 ANDREW ASTORGA FACC, ALI FACP CCDS Ot 786.59 CHEST PAIN NEC 10/27/2015 MICHELLE ASTORGA, DREW Barrett Ot 715.36 LOC OSTEOARTH NOS-L/LEG 10/27/2015 DREW MARTINEZ MD Ot 719.46 JOINT PAIN-L/LEG 10/27/2015 AME RODRIGEZ MD Ot M17.12 UNILATERAL PRIMARY OSTEOARTHRITIS, LEFT 10/27/2015 RAIN ASTORGA, AME Herbert Ot R53.83 OTHER FATIGUE 10/27/2015 AME RODRIGEZ [...] OTHER SPECIFIED SURGICAL A 10/27/2015 CHANCE CARRENO FINISHER POLISHER Ot E78.4 OTHER HYPERLIPIDEMIA 10/27/2015 WAICHANCE Mary FINISHER POLISHER Ot I10 ESSENTIAL (PRIMARY) HYPERTENSION 10/27/2015 CHANCE CARRENO FINISHER POLISHER Ot I25.10 ATHSCL HEART DISEASE OF [place] CORONARY 10/27/2015 CHANCE CARRENO FINISHER POLISHER Ot 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 10/27/2015 FLAKOCHANCE FUNG FINISHER POLISHER Ot E78.4 OTHER HYPERLIPIDEMIA 10/27/2015 BAIMACHANCE L FINISHER POLISHER Ot I10 ESSENTIAL (PRIMARY) HYPERTENSION 10/27/2015 CHANCE CARRENO L FINISHER POLISHER Ot I25.10 ATHSCL HEART DISEASE OF [place] CORONARY 10/27/2015 CHANCE CARRENO FINISHER POLISHER Ot I65.23 OCCLUSION AND STENOSIS OF BILATERAL [...] ENCOUNTER FOR OTHER SPECIFIED SURGICAL A 10/27/2015 WAI CHANCE Mary FINISHER POLISHER Ot E78.4 OTHER HYPERLIPIDEMIA 10/27/2015 WAICHANCE L FINISHER POLISHER Ot I10 ESSENTIAL (PRIMARY) HYPERTENSION 10/27/2015 WAI CHANCE L FINISHER POLISHER Ot I25.10 ATHSCL HEART DISEASE OF [place] CORONARY 10/27/2015 BAIMACHANCE L FINISHER POLISHER Ot 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 10/27/2015 BAIMA, CHANCE L FINISHER POLISHER Ot E78.4 OTHER HYPERLIPIDEMIA 10/27/2015 BAIMA, CHANCE L FINISHER POLISHER Ot I10 ESSENTIAL (PRIMARY) HYPERTENSION 10/27/2015 BAIMA, CHANCE L FINISHER POLISHER Ot I25.10 ATHSCL HEART DISEASE OF [place] CORONARY 10/27/2015 BAIMA CHANCE L FINISHER POLISHER Ot 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 11/06/2015 BAIMACHANCE L FINISHER POLISHER Ot E78.4 OTHER HYPERLIPIDEMIA 11/06/2015 BAIMA, CHANCE L FINISHER POLISHER Ot I10 ESSENTIAL (PRIMARY) HYPERTENSION 11/06/2015 BAIMA, CHANCE L FINISHER POLISHER Ot I25.10 ATHSCL HEART DISEASE OF [place] CORONARY 11/06/2015 BAIMA CHANCE L FINISHER POLISHER Ot 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 11/13/2015 BAIMA CHANCE L FINISHER POLISHER Ot E78.4 OTHER HYPERLIPIDEMIA 11/13/2015 BAIMA, CHANCE L FINISHER POLISHER Ot I10 ESSENTIAL (PRIMARY) HYPERTENSION 11/13/2015 BAIMA, CHANCE L FINISHER POLISHER Ot I25.10 ATHSCL HEART DISEASE OF [place] CORONARY 11/13/2015 BAIMAYARIELCHANCE L FINISHER POLISHER Ot 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 11/19/2015 ANDREW ASTORGA FAC, KEZIA FACP CCDS Ot 785.2 CARDIAC MURMURS NEC 11/19/2015 ANDREW ASTORGA FACC, ALI FACP CCDS Ot 786.59 CHEST PAIN NEC 11/19/2015 ANDREW ASTORGA FACC, ALI FACP CCDS Ot 785.2 CARDIAC MURMURS NEC 11/19/2015 ANDREW ASTORGA FACC, ALI FACP CCDS Ot 786.59 CHEST PAIN NEC 11/19/2015 MICHELLE ASTORGA, DREW Barrett Ot 715.36 LOC OSTEOARTH NOS-L/LEG 11/19/2015 DREW MARTINEZ MD Ot 719.46 JOINT PAIN-L/LEG 11/19/2015 RAIN ASTORGA, AME Herbert Ot M17.12 UNILATERAL PRIMARY OSTEOARTHRITIS, LEFT 11/19/2015 RAIN ASTORGA, AME Herbert Ot R53.83 OTHER FATIGUE 11/19/2015 RAIN ASTORGA, AME Herbert Ot Z01.810 ENCOUNTER FOR PREPROCEDURAL CARDIOVASCUL 11/19/2015 RAIN ASTORGA, AME Herbert Ot Z01.811 ENCOUNTER FOR PREPROCEDURAL RESPIRATORY 11/19/2015 RAIN ASTORGA, AME Herbert Ot Z01.812 ENCOUNTER FOR PREPROCEDURAL LABORATORY E 11/19/2015 RAIN ASTORGA, AME Herbert Ot Z11.2 ENCOUNTER FOR SCREENING FOR OTHER BACTER 11/19/2015 RAIN ASTORGA, AME Herbert Ot M48.07 SPINAL STENOSIS, LUMBOSACRAL REGION 11/19/2015 RAIN ASTORGA, AME Herbert Ot Z48.89 ENCOUNTER FOR OTHER SPECIFIED SURGICAL A 11/19/2015 BAIMA, CHANCE L FINISHER POLISHER Ot E78.4 OTHER HYPERLIPIDEMIA 11/19/2015 BAIMA, CHANCE L FINISHER POLISHER Ot I10 ESSENTIAL (PRIMARY) HYPERTENSION 11/19/2015 BAIMA, CHANCE L FINISHER POLISHER Ot I25.10 ATHSCL HEART DISEASE OF [place] CORONARY 11/19/2015 BAIMA, CHANCE L FINISHER POLISHER Ot 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 11/19/2015 BAIMA, CHANCE L FINISHER POLISHER Ot E78.4 OTHER HYPERLIPIDEMIA 11/19/2015 BAIMA, CHANCE L FINISHER POLISHER Ot I10 ESSENTIAL (PRIMARY) HYPERTENSION 11/19/2015 BAIMA, CHANCE L FINISHER POLISHER Ot I25.10 ATHSCL HEART DISEASE OF [place] CORONARY 11/19/2015 BAIMA, CHANCE L FINISHER POLISHER Ot 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 11/20/2015 BAIMA, CHANCE L FINISHER POLISHER Ot E78.4 OTHER HYPERLIPIDEMIA 11/20/2015 BAIMA, CHANCE L FINISHER POLISHER Ot I10 ESSENTIAL (PRIMARY) HYPERTENSION 11/20/2015 BAIMA, CHANCE L FINISHER POLISHER Ot I25.10 ATHSCL HEART DISEASE OF [place] CORONARY 11/20/2015 BAIMA, CHANCE L FINISHER POLISHER Ot 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 11/23/2015 BAIMA, CHANCE L FINISHER POLISHER Ot E78.4 OTHER HYPERLIPIDEMIA 11/23/2015 BAIMA, CHANCE L FINISHER POLISHER Ot I10 ESSENTIAL (PRIMARY) HYPERTENSION 11/23/2015 BAIMA, CHANCE L FINISHER POLISHER Ot I25.10 ATHSCL HEART DISEASE OF [place] CORONARY 11/23/2015 BAIMA, CHANCE L FINISHER POLISHER Ot 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 12/11/2015 FLAKOCHANCE FUNG FINISHER POLISHER Ot E78.4 OTHER HYPERLIPIDEMIA 12/11/2015 CHANCE CARRENO FINISHER POLISHER Ot I10 ESSENTIAL (PRIMARY) HYPERTENSION 12/11/2015 CHANCE CARRENO FINISHER POLISHER Ot I25.10 ATHSCL HEART DISEASE OF [place] CORONARY 12/11/2015 CHANCE CARRENO FINISHER POLISHER Ot 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 03/11/2016 MICHELLE ASTORGA, MAGDIEL Berger Ot K92.1 MELENA 03/11/2016 MAGDIEL MARTINEZ MD [...] Ot M17.12 UNILATERAL PRIMARY OSTEOARTHRITIS, LEFT 03/15/2016 AME RODRIGEZ MD Ot R53.83 OTHER FATIGUE 03/15/2016 AME RODRIGEZ [...] OTHER SPECIFIED SURGICAL A 03/15/2016 CHANCE CARRENO FINISHER POLISHER Ot E78.4 OTHER HYPERLIPIDEMIA 03/15/2016 BAIMA, CHANCE L FINISHER POLISHER Ot I10 ESSENTIAL (PRIMARY) HYPERTENSION 03/15/2016 BAIMA, CHANCE L FINISHER POLISHER Ot I25.10 ATHSCL HEART DISEASE OF [place] CORONARY 03/15/2016 BAIMA, CHANCE L FINISHER POLISHER Ot 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 03/15/2016 BAIMA, CHANCE L FINISHER POLISHER Ot E78.4 OTHER HYPERLIPIDEMIA 03/15/2016 BAIMA, CHANCE L FINISHER POLISHER Ot I10 ESSENTIAL (PRIMARY) HYPERTENSION 03/15/2016 BAIMA, CHANCE L FINISHER POLISHER Ot I25.10 ATHSCL HEART DISEASE OF [place] CORONARY 03/15/2016 BAIMA, CHANCE L FINISHER POLISHER Ot 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 03/15/2016 BAIMA, CHANCE L FINISHER POLISHER Ot E78.4 OTHER HYPERLIPIDEMIA 03/15/2016 BAIMA, CHANCE L FINISHER POLISHER Ot I10 ESSENTIAL (PRIMARY) HYPERTENSION 03/15/2016 BAIMA, CHANCE L FINISHER POLISHER Ot I25.10 ATHSCL HEART DISEASE OF [place] CORONARY 03/15/2016 BAIMA, CHANCE L FINISHER POLISHER Ot I65.23 OCCLUSION AND STENOSIS OF [place]ILATERAL [place] 03/15/2016 MAGDIEL MARTINEZ MD Ot K44.9 DIAPHRAGMATIC HERNIA WITHOUT OBSTRUCTION 03/15/2016 MICHELLE ASTORAG, MAGDIEL Berger Ot K92.1 MELENA 03/15/2016 MAGDIEL MARTINEZ MD Ot Z79.02 EVS TECH (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 03/15/2016 MAGDIEL MARTINEZ MD Ot Z79.82 NURSING HOME (CURRENT) USE OF ASPIRIN 03/17/2016 MAGDIEL MARTINEZ MD Ot K44.9 DIAPHRAGMATIC HERNIA WITHOUT OBSTRUCTION 03/17/2016 MAGDIEL MARTINEZ MD Ot K92.1 MELENA 03/17/2016 MAGDIEL MARTINEZ MD Ot Z79.02 EVS TECH (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 03/17/2016 MAGDIEL MARTINEZ MD Ot Z79.82 NURSING HOME (CURRENT) USE OF ASPIRIN 08/02/2016 ANDREW ASTORGA FACC, ALI FACP CCDS Ot 785.2 CARDIAC MURMURS NEC 08/02/2016 ANDREW ASTORGA FACC, ALI FACP CCDS Ot 786.59 CHEST PAIN NEC 08/02/2016 ANDREW ASTORGA FACC, ALI FACP CCDS Ot 785.2 CARDIAC MURMURS NEC 08/02/2016 ANDREW ASTORGA FACC, ALI FACP CCDS Ot 786.59 CHEST PAIN NEC 08/02/2016 MICHELLE ASTORGA, DREW Barrett Ot 715.36 LOC OSTEOARTH NOS-L/LEG 08/02/2016 DREW MARTINEZ MD Ot 719.46 JOINT PAIN-L/LEG 08/02/2016 RAIN ASTORGA, AME Herbert Ot M17.12 UNILATERAL PRIMARY OSTEOARTHRITIS, LEFT 08/02/2016 RAIN ASTORGA, AME Herbert Ot R53.83 OTHER FATIGUE 08/02/2016 RAIN ASTORGA, AME Herbert Ot Z01.810 ENCOUNTER FOR PREPROCEDURAL CARDIOVASCUL 08/02/2016 AME RODRIGEZ MD Ot Z01.811 ENCOUNTER FOR PREPROCEDURAL RESPIRATORY 08/02/2016 RAIN ASTORGA, AME Herbert Ot Z01.812 ENCOUNTER FOR PREPROCEDURAL LABORATORY E 08/02/2016 AME RODRIGEZ MD Ot Z11.2 ENCOUNTER FOR SCREENING FOR OTHER BACTER 08/02/2016 AME RODRIGEZ MD Ot M48.07 SPINAL STENOSIS, LUMBOSACRAL REGION 08/02/2016 AME RODRIGEZ MD Ot Z48.89 ENCOUNTER FOR OTHER SPECIFIED SURGICAL A 08/02/2016 BAIMA, CHANCE L FINISHER POLISHER Ot E78.4 OTHER HYPERLIPIDEMIA 08/02/2016 BAIMA, CHANCE L FINISHER POLISHER Ot I10 ESSENTIAL (PRIMARY) HYPERTENSION 08/02/2016 BAIMA, CHANCE L FINISHER POLISHER Ot I25.10 ATHSCL HEART DISEASE OF [place] CORONARY 08/02/2016 BAIMA, CHANCE L FINISHER POLISHER Ot 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 08/02/2016 BAIMA, CHANCE L FINISHER POLISHER Ot E78.4 OTHER HYPERLIPIDEMIA 08/02/2016 BAIMA, CHANCE L FINISHER POLISHER Ot I10 ESSENTIAL (PRIMARY) HYPERTENSION 08/02/2016 BAIMA, CHANCE L FINISHER POLISHER Ot I25.10 ATHSCL HEART DISEASE OF [place] CORONARY 08/02/2016 BAIMA, CHANCE L FINISHER POLISHER Ot 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 08/02/2016 BAIMA, CHANCE L FINISHER POLISHER Ot E78.4 OTHER HYPERLIPIDEMIA 08/02/2016 BAIMA, CHANCE L FINISHER POLISHER Ot I10 ESSENTIAL (PRIMARY) HYPERTENSION 08/02/2016 BAIMA, CHANCE L FINISHER POLISHER Ot I25.10 ATHSCL HEART DISEASE OF [place] CORONARY 08/02/2016 WAI CHANCE L FINISHER POLISHER Ot 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 08/03/2016 EMIR LIMA YENY Barker Ot M48.02 SPINAL STENOSIS, CERVICAL REGION 08/03/2016 YENY FIELD DO Ot M50.20 OTHER CERVICAL DISC DISPLACEMENT, UNSP C 08/03/2016 EMIR LIMA YENY Barker Ot M54.6 PAIN IN THORACIC SPINE 2016 EMIR LIMA YENY Barker Ot M48.02 SPINAL STENOSIS, CERVICAL REGION 2016 YENY FIELD DO Ot M50.20 OTHER CERVICAL DISC DISPLACEMENT, UNSP C 2016 EMIR LIMA YENY Barker Ot M54.6 PAIN IN THORACIC SPINE 09/12/2016 EMIR LIMA YENY Barker Ot M48.02 SPINAL STENOSIS, CERVICAL REGION 09/12/2016 EMIR LIMA YENY Barker Ot M50.20 OTHER CERVICAL DISC DISPLACEMENT, UNSP C 09/12/2016 EMIR LIMA YENY Barker Ot M54.6 PAIN IN THORACIC SPINE 12/09/2016 ANDREW ASTOGRA FACC, KEZIA FACP CCDS Ot I25.10 ATHSCL HEART DISEASE OF [place] CORONARY 12/14/2016 ANDREW ASTORGA FACC, KEZIA FACP CCDS Ot E78.4 OTHER HYPERLIPIDEMIA 12/14/2016 ANDREW ASTORGA FACC, ALI FACP CCDS Ot I12.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 12/14/2016 ANDREW ASTORGA FACC, ALI FACP CCDS Ot I25.10 ATHSCL HEART DISEASE OF [place] CORONARY 12/14/2016 ANDREW ASTORGA FACC, KEZIA FACP [...] CCDS Ot I25.10 ATHSCL HEART DISEASE OF [place] CORONARY 01/03/2017 ANDREW ASTORGA FACC, ALI FACP [...] CCDS Ot I25.10 ATHSCL HEART DISEASE OF [place] CORONARY 01/10/2017 ANDREW ASTORGA FACC, ALI FACP [...] CCDS Ot I25.10 ATHSCL HEART DISEASE OF [place] CORONARY 06/21/2017 ANDREW ASTORGA FACC, ALI FACP [...] CCDS Ot I25.10 ATHSCL HEART DISEASE OF [place] CORONARY 07/04/2017 ANDREW ASTORGA FACC, ALI FACP CCDS Ot 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 07/04/2017 ANDREW FERREIRAC, ALI FACP CCDS Ot N18.3 CHRONIC KIDNEY DISEASE, STAGE 3 (MODERAT 07/04/2017 AMA MOON MD Ot M48.02 SPINAL STENOSIS, CERVICAL REGION 07/04/2017 AMA MOON MD Ot Z01.812 ENCOUNTER FOR PREPROCEDURAL LABORATORY E 07/04/2017 AMA MOON MD, Ot Z11.2 ENCOUNTER FOR SCREENING FOR OTHER BACTER 07/04/2017 AMA MOON MD Ot Z22.322 CARRIER OR SUSPECTED CARRIER OF METHICIL 07/05/2017 AMA MOON MD, Ot M48.02 SPINAL STENOSIS, CERVICAL REGION 07/05/2017 AMA MOON MD, Ot Z01.812 ENCOUNTER FOR PREPROCEDURAL LABORATORY E 07/05/2017 AMA MOON MD, Ot Z11.2 ENCOUNTER FOR SCREENING FOR OTHER BACTER 07/05/2017 AMA MOON MD, Ot Z22.322 CARRIER OR SUSPECTED CARRIER OF METHICIL 07/10/2017 ANDREW ASTORGA FACC, ALI FACP CCDS Ot E78.4 OTHER HYPERLIPIDEMIA 07/10/2017 ANDREW ASTORGA FACC, ALI FACP CCDS Ot I12.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 07/10/2017 ANDREW ASTORGA FACC, ALI FACP CCDS Ot I25.10 ATHSCL HEART DISEASE OF [place] CORONARY 07/10/2017 ANDREW ASTORGA FACC, ALI FACP CCDS Ot 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 07/10/2017 ANDREW ASTORGA FACC, ALI FACP CCDS Ot N18.3 CHRONIC KIDNEY DISEASE, STAGE 3 (MODERAT 07/14/2017 AMA MOON MD Ot E03.9 HYPOTHYROIDISM, UNSPECIFIED 07/14/2017 AMA MOON MD Ot E78.5 HYPERLIPIDEMIA, UNSPECIFIED 07/14/2017 AMA MOON MD Ot I10 ESSENTIAL (PRIMARY) HYPERTENSION 07/14/2017 AMA MOON MD Ot I25.10 ATHSCL HEART DISEASE OF [place] CORONARY 07/14/2017 AMA MOON MD Ot M19.91 PRIMARY OSTEOARTHRITIS, UNSPECIFIED SITE 07/14/2017 AMA MOON MD Ot M47.12 OTHER SPONDYLOSIS WITH MYELOPATHY, CERVI 07/14/2017 AMA MOON MD Ot M47.22 OTHER SPONDYLOSIS WITH RADICULOPATHY, CE 07/14/2017 AMA MOON MD, Ot M48.02 SPINAL STENOSIS, CERVICAL REGION 07/14/2017 AMA MOON MD Ot 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 07/14/2017 AMA MOON MD Ot Z87.891 PERSONAL HISTORY OF NICOTINE DEPENDENCE 07/14/2017 AMA MOON MD Ot 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 07/14/2017 AMA MOON MD Ot Z95.5 PRESENCE OF CORONARY ANGIOPLASTY IMPLANT 07/14/2017 AMA MOON MD Ot Z96.652 PRESENCE OF LEFT ARTIFICIAL KNEE JOINT 07/17/2017 AMA MOON MD Ot E03.9 HYPOTHYROIDISM, UNSPECIFIED 07/17/2017 AMA MOON MD Ot E78.5 HYPERLIPIDEMIA, UNSPECIFIED 07/17/2017 AMA MOON MD Ot I10 ESSENTIAL (PRIMARY) HYPERTENSION 07/17/2017 AMA MOON MD Ot I25.10 ATHSCL HEART DISEASE OF [place] CORONARY 07/17/2017 AMA MOON MD Ot M19.91 PRIMARY OSTEOARTHRITIS, UNSPECIFIED SITE 07/17/2017 AMA MOON MD Ot M47.12 OTHER SPONDYLOSIS WITH MYELOPATHY, CERVI 07/17/2017 AMA MOON MD Ot M47.22 OTHER SPONDYLOSIS WITH RADICULOPATHY, CE 07/17/2017 AMA MOON MD Ot M48.02 SPINAL STENOSIS, CERVICAL REGION 07/17/2017 AMA MOON MD Ot 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 07/17/2017 AMA MOON MD Ot Z87.891 PERSONAL HISTORY OF NICOTINE DEPENDENCE 07/17/2017 AMA MOON MD, Ot 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 07/17/2017 AMA MOON MD Ot Z95.5 PRESENCE OF CORONARY ANGIOPLASTY IMPLANT 07/17/2017 AMA MOON MD Ot Z96.652 PRESENCE OF LEFT ARTIFICIAL KNEE JOINT 07/17/2017 AMA MOON MD Ot E03.9 HYPOTHYROIDISM, UNSPECIFIED 07/17/2017 AMA MOON MD Ot E78.5 HYPERLIPIDEMIA, UNSPECIFIED 07/17/2017 AMA MOON MD Ot I10 ESSENTIAL (PRIMARY) HYPERTENSION 07/17/2017 AMA MOON MD Ot I25.10 ATHSCL HEART DISEASE OF [place] CORONARY 07/17/2017 AMA MOON MD Ot M19.91 PRIMARY OSTEOARTHRITIS, UNSPECIFIED SITE 07/17/2017 AMA MOON MD Ot M47.12 OTHER SPONDYLOSIS WITH MYELOPATHY, CERVI 07/17/2017 AMA MOON MD Ot M47.22 OTHER SPONDYLOSIS WITH RADICULOPATHY, CE 07/17/2017 AMA MOON MD Ot M48.02 SPINAL STENOSIS, CERVICAL REGION 07/17/2017 AMA MOON MD Ot 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 07/17/2017 AMA MOON MD, Ot Z87.891 PERSONAL HISTORY OF NICOTINE DEPENDENCE 07/17/2017 AMA MOON MD Ot 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 07/17/2017 AMA MOON MD Ot Z95.5 PRESENCE OF CORONARY ANGIOPLASTY IMPLANT 07/17/2017 AMA MOON MD Ot Z96.652 PRESENCE OF LEFT ARTIFICIAL KNEE JOINT 07/17/2017 AMA MOON MD Ot E03.9 HYPOTHYROIDISM, UNSPECIFIED 07/17/2017 AMA MOON MD Ot E78.5 HYPERLIPIDEMIA, UNSPECIFIED 07/17/2017 AMA MOON MD Ot I10 ESSENTIAL (PRIMARY) HYPERTENSION 07/17/2017 AMA MOON MD, Ot I25.10 ATHSCL HEART DISEASE OF [place] CORONARY 07/17/2017 AMA MOON MD Ot M19.91 PRIMARY OSTEOARTHRITIS, UNSPECIFIED SITE 07/17/2017 AMA MOON MD Ot M47.12 OTHER SPONDYLOSIS WITH MYELOPATHY, CERVI 07/17/2017 AMA MOON MD Ot M47.22 OTHER SPONDYLOSIS WITH RADICULOPATHY, CE 07/17/2017 AMA MOON MD, Ot M48.02 SPINAL STENOSIS, CERVICAL REGION 07/17/2017 AMA MOON MD, Ot 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 07/17/2017 AMA MOON MD, Ot Z87.891 PERSONAL HISTORY OF NICOTINE DEPENDENCE 07/17/2017 AMA MOON MD, Ot 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 07/17/2017 AMA MOON MD Ot Z95.5 PRESENCE OF CORONARY ANGIOPLASTY IMPLANT 07/17/2017 AMA MOON MD Ot Z96.652 PRESENCE OF LEFT ARTIFICIAL KNEE JOINT 07/18/2017 AMA MOON MD Ot E03.9 HYPOTHYROIDISM, UNSPECIFIED 07/18/2017 AMA MOON MD Ot E78.5 HYPERLIPIDEMIA, UNSPECIFIED 07/18/2017 AMA MOON MD Ot I10 ESSENTIAL (PRIMARY) HYPERTENSION 07/18/2017 AMA MOON MD Ot I25.10 ATHSCL HEART DISEASE OF [place] CORONARY 07/18/2017 AMA MOON MD Ot M19.91 PRIMARY OSTEOARTHRITIS, UNSPECIFIED SITE 07/18/2017 AMA MOON MD Ot M47.12 OTHER SPONDYLOSIS WITH MYELOPATHY, CERVI 07/18/2017 AMA MOON MD Ot M47.22 OTHER SPONDYLOSIS WITH RADICULOPATHY, CE 07/18/2017 AMA MOON MD, Ot M48.02 SPINAL STENOSIS, CERVICAL REGION 07/18/2017 AMA MOON MD Ot 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 07/18/2017 AMA MOON MD Ot Z87.891 PERSONAL HISTORY OF NICOTINE DEPENDENCE 07/18/2017 AMA MOON MD Ot 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 07/18/2017 AMA MOON MD Ot Z95.5 PRESENCE OF CORONARY ANGIOPLASTY IMPLANT 07/18/2017 AMA MOON MD Ot Z96.652 PRESENCE OF LEFT ARTIFICIAL KNEE JOINT 07/18/2017 AMA MOON MD Ot E03.9 HYPOTHYROIDISM, UNSPECIFIED 07/18/2017 AMA MOON MD Ot E78.5 HYPERLIPIDEMIA, UNSPECIFIED 07/18/2017 AMA MOON MD Ot F15.93 OTHER STIMULANT USE, UNSPECIFIED WITH [place] 07/18/2017 AMA MOON MD Ot I10 ESSENTIAL (PRIMARY) HYPERTENSION 07/18/2017 AMA MOON MD Ot I25.10 ATHSCL HEART DISEASE OF [place] CORONARY 07/18/2017 AMA MOON MD Ot J39.2 OTHER DISEASES OF [place] 07/18/2017 AMA MOON MD Ot M19.91 PRIMARY OSTEOARTHRITIS, UNSPECIFIED SITE 07/18/2017 AMA MOON MD Ot M47.12 OTHER SPONDYLOSIS WITH MYELOPATHY, CERVI 07/18/2017 AMA MOON MD Ot M47.22 OTHER SPONDYLOSIS WITH RADICULOPATHY, CE 07/18/2017 AMA MOON MD Ot M48.02 SPINAL STENOSIS, CERVICAL REGION 07/18/2017 AMA MOON MD, Ot 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 07/18/2017 AMA MOON MD, Ot N40.1 BENIGN PROSTATIC HYPERPLASIA WITH LOWER 07/18/2017 AMA MOON MD, Ot R13.13 DYSPHAGIA, PHARYNGEAL PHASE 07/18/2017 AMA MOON MD, Ot R31.9 HEMATURIA, UNSPECIFIED 07/18/2017 AAM MOON MD, Ot R33.8 OTHER RETENTION OF URINE 07/18/2017 AMA MOON MD, Ot R41.0 DISORIENTATION, UNSPECIFIED 07/18/2017 AMA MOON MD, Ot R51 HEADACHE 07/18/2017 AMA MOON MD, Ot S37.33XA LACERATION OF [place], INITIAL ENCOUNTER 07/18/2017 AMA MOON MD, Ot S37.39XA OTHER INJURY OF [place], INITIAL ENCOUNT 07/18/2017 AMA MOON MD, Ot Y84.6 URINARY CATHETERIZATION CAUSE ABN REACT/ 07/18/2017 AMA MOON MD, Ot Z87.891 PERSONAL HISTORY OF NICOTINE DEPENDENCE 07/18/2017 AMA MOON MD, Ot 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 07/18/2017 AMA MOON MD, Ot Z95.5 PRESENCE OF CORONARY ANGIOPLASTY IMPLANT 07/18/2017 AMA MOON MD Ot Z96.652 PRESENCE OF LEFT ARTIFICIAL KNEE JOINT 07/19/2017 ANDREW ASTORGA FACC, ALI FACP CCDS Ot 785.2 CARDIAC MURMURS NEC 07/19/2017 ANDREW ASTORGA FACC, ALI FACP CCDS Ot 786.59 CHEST PAIN NEC 07/19/2017 ANDREW ASTORGA FACC, ALI FACP CCDS Ot 785.2 CARDIAC MURMURS NEC 07/19/2017 ANDREW ASTORGA FACC, ALI FACP CCDS Ot 786.59 CHEST PAIN NEC 07/19/2017 DREW MARTINEZ MD Ot 715.36 LOC OSTEOARTH NOS-L/LEG 07/19/2017 DREW MARTINEZ MD Ot 719.46 JOINT PAIN-L/LEG 07/19/2017 AME RODRIGEZ MD Ot M17.12 UNILATERAL PRIMARY OSTEOARTHRITIS, LEFT 07/19/2017 AME RODRIGEZ MD Ot R53.83 OTHER FATIGUE 07/19/2017 RAIN ASTORGA, AME eHrbert Ot Z01.810 ENCOUNTER FOR PREPROCEDURAL CARDIOVASCUL 07/19/2017 RAIN ASTORGA, AME Herbert Ot Z01.811 ENCOUNTER FOR PREPROCEDURAL RESPIRATORY 07/19/2017 AME RODRIGEZ MD Ot Z01.812 ENCOUNTER FOR PREPROCEDURAL LABORATORY E 07/19/2017 AME RODRIGEZ MD Ot Z11.2 ENCOUNTER FOR SCREENING FOR OTHER BACTER 07/19/2017 RAIN ASTORGA, AME Herbert Ot M48.07 SPINAL STENOSIS, LUMBOSACRAL REGION 07/19/2017 RAIN ASTORGA, AME Herbert Ot Z48.89 ENCOUNTER FOR OTHER SPECIFIED SURGICAL A 07/19/2017 BAIMA, CHANCE L FINISHER POLISHER Ot E78.4 OTHER HYPERLIPIDEMIA 07/19/2017 BAIMA, CHANCE L FINISHER POLISHER Ot I10 ESSENTIAL (PRIMARY) HYPERTENSION 07/19/2017 BAIMA, CHANCE L FINISHER POLISHER Ot I25.10 ATHSCL HEART DISEASE OF [place] CORONARY 07/19/2017 BAIMA, CHANCE L FINISHER POLISHER Ot 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 07/19/2017 BAIMA, CHANCE L FINISHER POLISHER Ot E78.4 OTHER HYPERLIPIDEMIA 07/19/2017 BAIMA, CHANCE L FINISHER POLISHER Ot I10 ESSENTIAL (PRIMARY) HYPERTENSION 07/19/2017 BAIMA, CHANCE L FINISHER POLISHER Ot I25.10 ATHSCL HEART DISEASE OF [place] CORONARY 07/19/2017 BAIMA, CHANCE L FINISHER POLISHER Ot 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 07/19/2017 BAIMA, CHANCE L FINISHER POLISHER Ot E78.4 OTHER HYPERLIPIDEMIA 07/19/2017 BAIMA, CHANCE L FINISHER POLISHER Ot I10 ESSENTIAL (PRIMARY) HYPERTENSION 07/19/2017 BAIMA, CHANCE L FINISHER POLISHER Ot I25.10 ATHSCL HEART DISEASE OF [place] CORONARY 07/19/2017 BAIMA, CHANCE L FINISHER POLISHER Ot 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 07/19/2017 YENY FIELD DO Ot M48.02 SPINAL STENOSIS, CERVICAL REGION 07/19/2017 YENY FIELD DO Ot M50.20 OTHER CERVICAL DISC DISPLACEMENT, UNSP C 07/19/2017 YENY FIELD DO Ot M54.6 PAIN IN THORACIC SPINE 07/19/2017 ANDREW ASTORGA FACC, KEZIA FERREIRAP CCDS Ot E78.4 OTHER HYPERLIPIDEMIA 07/19/2017 ANDREW ASTORGA FACC, KEZIA FERREIRAP CCDS Ot I12.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 07/19/2017 KEZIA MORALES MD, FACCP CCDS Ot I25.10 ATHSCL HEART DISEASE OF [place] CORONARY 07/19/2017 ANDREW ASTORGA FACC, KEZIA FACP CCDS Ot 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 07/19/2017 ANDREW ASTORGA FACC, KEZIA FERREIRAP CCDS Ot N18.3 CHRONIC KIDNEY DISEASE, STAGE 3 (MODERAT 07/24/2017 REJI HAGER APRN Ot E03.9 HYPOTHYROIDISM, UNSPECIFIED 07/24/2017 REJI HAGER APRN Ot I10 ESSENTIAL (PRIMARY) HYPERTENSION 07/24/2017 REJI HAGER APRN Ot 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 07/24/2017 REJI HAGER APRN Ot Z79.82 NURSING HOME (CURRENT) USE OF ASPIRIN 07/24/2017 REJI HAGER APRN Ot Z80.0 FAMILY HISTORY OF MALIGNANT NEOPLASM OF 07/24/2017 REJI HAGER APRN Ot Z82.49 FAMILY HX OF ISCHEM HEART DIS AND OTH DI 07/24/2017 REJI HAGER APRN Ot Z87.19 PERSONAL HISTORY OF OTHER DISEASES OF TH 07/24/2017 REJI HAGER APRN Ot Z87.891 PERSONAL HISTORY OF NICOTINE DEPENDENCE 07/24/2017 REJI HAGER APRN Ot 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 07/24/2017 REJI HAGER APRN Ot Z95.5 PRESENCE OF CORONARY ANGIOPLASTY IMPLANT 07/24/2017 REJI HAGER APRN Ot Z96.652 PRESENCE OF LEFT ARTIFICIAL KNEE JOINT 07/24/2017 REJI HAGER APRN Ot Z98.1 ARTHRODESIS STATUS Procedures Code Description Performed By Performed On [id number] REPLACE OF L KNEE JT WITH SYNTH SUB, ANGE 01/21/2015 [id number] FUSION 2-6 C JT W INTBD FUS DEV, ANT LATA 07/10/2017 [id number] INSERTION OF FEEDING DEVICE INTO STOMACH 07/17/2017 Results Test Result Range Complete blood count [...] resistant Staphylococcus aureus (MRSA) screening culture NEG [facility] Whole blood basic metabolic panel - 07/13/17 05:16 Serum or plasma sodium measurement (moles/volume) 140 mmol/L 135-145 Serum or plasma potassium measurement (moles/volume) 4.1 mmol/L 3.6-5.0 Serum or plasma chloride measurement (moles/volume) 110 mmol/L 98-107 Carbon dioxide 20 mmol/L 21-32 Serum or plasma anion gap determination (moles/volume) 10 mmol/L 5-14 Serum or plasma urea nitrogen measurement (mass/volume) 22 mg/dL 7-18 Serum or plasma creatinine measurement (mass/volume) 1.15 mg/dL 0.60-1.30 Serum or plasma urea nitrogen/creatinine mass ratio 19 NRG Serum or plasma creatinine measurement with calculation of estimated glomerular filtration rate > NRG Serum or plasma glucose measurement (mass/volume) 123 mg/dL 70-105 Serum or plasma calcium measurement (mass/volume) 8.8 mg/dL 8.5-10.1 Methicillin resistant Staphylococcus aureus (MRSA) screening culture - 12:00 MRSA SCREEN RESULT MRSA ISOLATED NRG Complete blood count (CBC) with automated white blood cell (WBC) differential - 07/18/17 11:08 Blood leukocytes automated count (number/volume) 11.4 10*3/uL 4.3-11.0 Blood erythrocytes automated count (number/volume) 4.33 10*6/uL 4.35-5.85 Venous blood hemoglobin measurement (mass/volume) 13.1 g/dL 13.3-17.7 Blood hematocrit (volume fraction) 39 % 40-54 Automated erythrocyte mean corpuscular volume 89 [foz_us] 80-99 Automated erythrocyte mean corpuscular hemoglobin (mass per erythrocyte) 30 pg 25-34 Automated erythrocyte mean corpuscular hemoglobin concentration measurement ( mass/volume) 34 g/dL 32-36 Automated erythrocyte distribution width ratio 12.8 % 10.0-14.5 Automated blood platelet count (count/volume) 240 10*3/uL 130-400 Automated blood platelet mean volume measurement 11.4 [foz_us] 7.4-10.4 Automated blood neutrophils/100 leukocytes 77 % 42-75 Automated blood lymphocytes/100 leukocytes 14 % 12-44 Blood monocytes/100 leukocytes 7 % 0-12 Automated blood eosinophils/100 leukocytes 2 % 0-10 Automated blood basophils/100 leukocytes 0 % 0-10 Blood neutrophils automated count (number/volume) 8.7 10*3 1.8-7.8 Blood lymphocytes automated count (number/volume) 1.6 10*3 1.0-4.0 Blood monocytes automated count (number/volume) 0.8 10*3 0.0-1.0 Automated eosinophil count 0.2 10*3/uL 0.0-0.3 Automated blood basophil count (count/volume) 0.0 10*3/uL 0.0-0.1 Comprehensive metabolic panel - 07/18/17 11:08 Serum or plasma sodium measurement (moles/volume) 137 mmol/L 135-145 Serum or plasma potassium measurement (moles/volume) 4.4 mmol/L 3.6-5.0 Serum or plasma chloride measurement (moles/volume) 100 mmol/L 98-107 Carbon dioxide 26 mmol/L 21-32 Serum or plasma anion gap determination (moles/volume) 11 mmol/L 5-14 Serum or plasma urea nitrogen measurement (mass/volume) 30 mg/dL 7-18 Serum or plasma creatinine measurement (mass/volume) 1.29 mg/dL 0.60-1.30 Serum or plasma urea nitrogen/creatinine mass ratio 23 NRG Serum or plasma creatinine measurement with calculation of estimated glomerular filtration rate 53 NRG Serum or plasma glucose measurement (mass/volume) 128 mg/dL 70-105 Serum or plasma calcium measurement (mass/volume) 9.6 mg/dL 8.5-10.1 Serum or plasma total bilirubin measurement (mass/volume) 1.3 mg/dL 0.1-1.0 Serum or plasma alkaline phosphatase measurement (enzymatic activity/volume) 61 U/L 40-136 Serum or plasma aspartate aminotransferase measurement (enzymatic activity/ volume) 23 U/L 5-34 Serum or plasma alanine aminotransferase measurement (enzymatic activity/volume ) 31 U/L 0-55 Serum or plasma protein measurement (mass/volume) 7.1 g/dL 6.4-8.2 Serum or plasma albumin measurement (mass/volume) 3.8 g/dL 3.2-4.5 Encounters ACCT No. Visit Date/Time Discharge Status Pt. Type Provider Facility Loc./Unit Complaint [id number] 07/25/2017 11:16:00 07/25/2017 23:59:59 CLS Preadmit ISI SENA MD [facility] RAD DYSPHAGIA [id number] 07/19/2017 11:35:00 07/19/2017 13:34:00 DIS Outpatient REJI HAGER APRN [facility] ER ABD ISSUES [id number] 07/10/2017 09:56:00 07/18/2017 14:21:00 DIS Outpatient AMA MOON MD [facility] 4TH STENOSIS;DYSPHAGIA [id number] 07/04/2017 12:20:00 07/04/2017 13:05:00 DIS Outpatient AMA MOON MD [facility] PREOP C4-C7 ACDF [id number] 12/13/2016 12:58:00 12/13/2016 23:59:59 CLS Outpatient ANDREW ASTORGA FACC, KEZIA JETT CCDS 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 RAD M54.2,M54.6 [id number] 03/15/2016 06:44:00 03/15/2016 09:00:00 DIS Outpatient MAGDIEL MARTINEZ MD [facility] SDC MELANA [id number] 03/11/2016 05:32:00 03/11/2016 12:26:00 DIS Outpatient MAGDIEL MARTINEZ MD [facility] PREOP MELANA [id number] 11/19/2015 07:49:00 11/19/2015 23:59:59 CLS Outpatient BAIKENTON CHANCE L FINISHER POLISHER [facility] CARD CAD,HYPERTENSION [id number] 10/19/2015 11:54:00 10/19/2015 23:59:59 CLS Outpatient BAIKENTON CHANCE L FINISHER POLISHER [facility] RAD CAD,HTN,HLD [id number] 10/16/2015 10:47:00 10/16/2015 23:59:59 CLS Outpatient BAIKENTON CHANCE L FINISHER POLISHER [facility] CARD CAD [id number] 08/25/2015 23:58:00 08/26/2015 01:01:00 DIS Emergency MILTON ASTORGA, MARISOL Maldonado [facility] ER BOTH EYELIDS BLEEDING( SURGERY ON 08-25-15) [id number] 07/13/2015 13:50:00 07/13/2015 23:59:59 CLS Outpatient AME RODRIGEZ MD [facility] RAD SPINAL STENOSIS OF LUMBOSACRAL SPINE [id number] 01/21/2015 05:57:00 01/24/2015 12:45:00 DIS Inpatient AME RODRIGEZ MD [facility] 4TH LEFT KNEE SEVERE OSTEOARTHRIS [id number] 01/14/2015 10:10:00 01/14/2015 23:59:59 CLS Outpatient AME RODRIGEZ MD [facility] PREOP LEFT KNEE SEVERE OSTEOARTHRITIS [id number] 09/09/2013 11:13:00 09/09/2013 23:59:59 CLS Outpatient DREW MARTINEZ MD [facility] RAD LT KNEE PAIN [id number] 06/18/2013 08:39:00 06/19/2013 09:30:00 DIS Outpatient ANDREW ASTORGA FACC, KEZIA FACP CCDS [facility] CATH ANGINA [id number] 04/30/2013 13:55:00 05/01/2013 11:00:00 DIS Outpatient ANDREW ASTORGA FACC, ALI FACP CCDS [facility] CATH CHEST PAIN DYPSENIA HYPERTENSION [id number] 10/25/2012 07:48:00 10/25/2012 23:59:59 CLS Outpatient KEZIA MORALES MD, FACC FACP CCDS [facility] RAD CHEST DISCOMFORT [id number] 10/18/2012 09:33:00 10/18/2012 23:59:59 CLS Outpatient ANDREW ASTORGA FACC, ALI FACP CCDS [facility] CARD CHEST DISCOMFORT
[2017-08-02] MEDS ORDERED: NS IV 1000 ML 1,000 ML IV ONE (11:33)
[2017-08-02 11:46] LABS: BASOPHILS % (AUTO) 0 % (0-10); EOSINOPHILS % (AUTO) 0 % (0-10); HEMATOCRIT 33 % (40-54); HEMOGLOBIN 11.1 G/DL (13.3-17.7); LYMPHOCYTES # (AUTO) 0.4 X 10^3 (1.0-4.0); LYMPHOCYTES % (AUTO) 4 % (12-44); MEAN CORPUSCULAR HEMOGLOBIN 30 PG (25-34); MEAN CORPUSCULAR HGB CONC 34 G/DL (32-36); MEAN CORPUSCULAR VOLUME 89 FL (80-99); MONOCYTES # (AUTO) 0.5 X 10^3 (0.0-1.0); MONOCYTES % (AUTO) 5 % (0-12); NEUTROPHILS # (AUTO) 8.9 X 10^3 (1.8-7.8); NEUTROPHILS % (AUTO) 90 % (42-75); PLATELET COUNT 271 10^3/uL (130-400); RED BLOOD COUNT 3.65 10^6/uL (4.35-5.85); RED CELL DISTRIBUTION WIDTH 12.6 % (10.0-14.5); WHITE BLOOD COUNT 9.8 10^3/uL (4.3-11.0)
[2017-08-02 11:58] LABS: INR 1.2 (0.8-1.4); PROTHROMBIN TIME PATIENT 14.8 SEC (12.2-14.7)
[2017-08-02 12:07] LABS: ALBUMIN 3.2 GM/DL (3.2-4.5); BAND NEUTROPHILS 7 %; BILIRUBIN,TOTAL 0.7 MG/DL (0.1-1.0); CALCIUM 8.8 MG/DL (8.5-10.1); CREATININE SERUM 1.46 MG/DL (0.60-1.30); LYMPHOCYTES % (MANUAL) 3 %; MONOCYTES % (MANUAL) 2 %; NEUTROPHILS % (MANUAL) 88 %; POTASSIUM 4.2 MMOL/L (3.6-5.0); RBC MORPH NORMAL; TOTAL PROTEIN 6.6 GM/DL (6.4-8.2); TOXIC GRANULATION/VACUOLAZATIO 1+
--- NOTE | 2017-08-02 12:27 | Diagnostic Imaging Report ---
INDICATION: Fever and hematuria. TIME OF EXAM: 12:13 PM Correlation is made with prior study from 07/19/2017. FINDINGS: The heart size is stable. There is minimal atelectasis in the right base. No infiltrates are seen. No effusion or pneumothorax is detected. Postop changes in the lower cervical spine are noted. IMPRESSION: Subsegmental right basilar atelectasis. The study is otherwise unremarkable. Dictated by: Dictated on workstation # [id number]
[2017-08-02 12:55] LABS: BILIRUBIN,URINE NEGATIVE (NEGATIVE); CLARITY,URINE VERY CLOUDY; COLOR,URINE RED; GLUCOSE, URINE (UA) NEGATIVE (NEGATIVE); KETONES,URINE 1+ (NEGATIVE); LEUKOCYTE ESTERASE ,URINE 3+ (NEGATIVE); NITRITE,URINE NEGATIVE (NEGATIVE); PH,URINE 7 (5-9); PROTEIN,URINE 4+ (NEGATIVE); UROBILINOGEN,URINE NORMAL (NORMAL)
[2017-08-02 13:01] LABS: BACTERIA,URINE FEW /HPF; RBC,URINE TNTC /HPF; WBC,URINE 25-50 /HPF
[2017-08-02] MEDS ORDERED: LORazepam INJ 2 MG/ML (ATIVAN) VIAL IVP ONE (13:30)
--- NOTE | 2017-08-02 13:35 | ED General ---
General Chief Complaint: Fever-Adult/Adol Stated Complaint: FEVER HEMATURIA/HERNANDEZ Nursing Triage Note: pt presents from [facility] via EMS with complaints of fever and hematuria with hernandez. Nursing Sepsis Screen: Possible Sepsis Risk Source of Information: Patient, EMS Exam Limitations: No Limitations History of Present Illness Date Seen by Provider: August 02, 2017 Time Seen by Provider: 11:10 Initial Comments This 81-year-old gentleman presents to the emergency room via EMS from [facility] with concerns about fever and hematuria. Temperature was 100.6 at the [facility] and is 101.8 upon arrival. Patient received Levaquin 500 mg per PEG at the [facility] as well as Tylenol prior to arrival. Patient's Hernandez catheter was removed on Monday, July 29. He was not able to produce urine after the catheter was removed. It was replaced on July 30. He has had hematuria since that time. He is still producing urine but it is red in color. Patient seems a little confused and/or agitated. Allergies and Home Medications Allergies Coded Allergies: No Known Drug Allergies (Unverified , 10/25/12) Home Medications Acetaminophen 325 Mg Tablet, 650 MG PO Q4H PRN for TEMPATURE OR MILD PAIN, ( Reported) Aspirin 81 Mg Tab.chew, 162 MG PEG DAILY, (Reported) TAKE 2 (81MG) TABS Dorzolamide HCl/Timolol Maleat 10 Ml Drops, 1 DROP OU BID, (Reported) Famotidine 20 Mg Tablet, 20 MG PEG BID, (Reported) Glycerin/Propylene Glycol 30 Ml Drops, 1 DROP OU QID PRN for DRY EYES, (Reported ) Lactose-Reduced Food/Fiber 237 Ml Liquid, 237 ML PEG 5XD, (Reported) Levofloxacin 500 Mg Tablet, 500 MG PEG DAILY, (Reported) 7 DAY THERAPY ORDER DATE 08-02-17 Levothyroxine Sodium 88 Mcg Tablet, 88 MCG PEG DAILY, (Reported) Loteprednol Etabonate 5 Gm Drops.gel, 1 DROP OD DAILY, (Reported) Magnesium Hydroxide 400 Mg/5 Ml Oral.susp, 30 ML PEG DAILY PRN for CONSTIPATION- 7TH LINE, (Reported) Melatonin 3 Mg Tablet, 3 MG PO HS, (Reported) Metoprolol Succinate 100 Mg Tab.er.24h, 100 MG PEG DAILY, (Reported) HOLD AND NOTIFY PHYSICIAN FOR SYSTOLIC LESS THAN 100 AND OR DIASTOLIC LESS THAN 60. HOLD AND NOTIFY PHYSICIAN FOR PULSE LESS THAN OR EQUAL TO 60 Tramadol HCl 50 Mg Tablet, 50 MG PO Q6H PRN for PAIN-MODERATE, (Reported) Patient Home Medication List Home Medication List Reviewed: Yes Review of Systems Constitutional: see HPI EENTM: no symptoms reported Respiratory: no symptoms reported Cardiovascular: no symptoms reported Gastrointestinal: no symptoms reported Genitourinary: see HPI Musculoskeletal: no symptoms reported Psychiatric/Neurological: See HPI Hematologic/Lymphatic: No Symptoms Reported Immunological/Allergic: no symptoms reported Past Fdcssgn-Fpyngj-Fjlcev Hx Past Med/Social Hx: Reviewed and Corrections made Patient Social History Alcohol Use: Rarely Uses Recreational Drug Use: No Smoking Status: Former Smoker Type Used: Cigarettes Former Smoker, Quit: Mar 11, 1989 Recent Foreign Travel: No Contact w/Someone Who Travel: No Recent Infectious Disease Expo: No Recent Hopitalizations: No Physical Abuse: No Sexual Abuse: No Mistreated: No Immunizations Up To Date Date of Pneumonia Vaccine: Nov 12, 2015 Date of Influenza Vaccine: Dec 06, 2015 Seasonal Allergies Seasonal Allergies: No Past Medical History Surgeries: Yes (CORNEA TRANSPLANT, MASTOIDECTOMY, eyelid reduction, L TKR, neck , PEG tube) Gallbladder, Joint Replacement, Orthopedic Respiratory: No Cardiac: Yes (STENTS X2-LAST ONE COUPLE YEARS AGO) Coronary Artery Disease, High Cholesterol, Hypertension Neurological: Yes (dysphagia) Reproductive Disorders: No Sexually Transmitted Disease: No HIV/AIDS: No Genitourinary: Yes (hernandez cath since having sx on cervical spin for stenosis) Gastrointestinal: Yes (peg tube placement since having sx on cervical spine for stenosis) Chronic Constipation Musculoskeletal: Yes (spinal stenosis, ) Arthritis, Chronic Back Pain Endocrine: No Hypothyroidsim HEENT: Yes Glaucoma Loss of Vision: Bilateral Hearing Impairment: Denies Cancer: No Psychosocial: No Nursing Suicide Risk Score: 0 Integumentary: No Blood Disorders: No Adverse Reaction/Blood Tranf: No Family Medical History Reviewed Nursing Family Hx LUNG CANCER G8 BROTHER Myocardial infarction 19 MOTHER Physical Exam-Suspected Sepsis Physical Exam Vital Signs Vital Signs - First Documented 08/02/17 11:15 Temp 101.8 Pulse 93 Resp 12 B/P (MAP) 116/75 (89) Pulse Ox 98 O2 Delivery Nasal Cannula O2 Flow Rate 2.00 Capillary Refill : Less Than 3 Seconds Blood Pressure Mean: 89 General Appearance: No Apparent Distress, WD/WN HEENT: PERRL/EOMI, Normal ENT Inspection, Other (oropharynx somewhat dry) Neck: Normal Inspection Respiratory: Lungs Clear, Normal Breath Sounds, No Accessory Muscle Use, No Respiratory Distress, Other (mildly tachypneic) Cardiovascular: No Edema, No Murmur, Tachycardia Gastrointestinal: Normal Bowel Sounds, Non Tender, Soft Extremity: Normal Capillary Refill, Normal Inspection, No Pedal Edema Neurologic/Psychiatric: Alert, Oriented x3, No Motor/Sensory Deficits, Normal Mood/Affect, chief medical director II-XII Norm as Tested, Other (slightly confused/agitated) Skin: normal color, warm/dry Focused Exam Lactate Level 08/02/17 11:30: Lactic Acid Level 2.20*H 08/02/17 14:33: Lactic Acid Level 1.37 Lactic Acid Level Progress/Results/Core Measures Suspected Sepsis Recent Fever Within 48 Hours: Yes Infection Criteria Present: Suspected New Infection New/Unexplained Altered Menta: No Sepsis Screen: Possible Sepsis Risk SIRS Temperature:101.8 Pulse: 93 Respiratory Rate: 12 Laboratory Tests 08/02/17 11:30: White Blood Count 9.8 08/03/17 05:35: White Blood Count 8.5 Blood Pressure 116 /75 Mean: 89 08/02/17 11:30: Lactic Acid Level 2.20*H 08/02/17 14:33: Lactic Acid Level 1.37 Laboratory Tests 08/02/17 11:30: Creatinine 1.46H, INR Comment 1.2, Platelet Count 271, Total Bilirubin 0.7 08/03/17 05:35: Creatinine 1.17, Platelet Count 234 Results/Orders Lab Results Laboratory Tests Test 08/02/17 11:30 08/02/17 12:46 08/02/17 14:33 08/03/17 05:35 Range/Units White Blood Count 9.8 8.5 4.3-11.0 10^3/uL Red Blood Count 3.65 L 3.21 L 4.35-5.85 10^6/uL Hemoglobin 11.1 L 9.8 L 13.3-17.7 G/DL Hematocrit 33 L 29 L 40-54 % Mean Corpuscular Volume 89 91 80-99 FL Mean Corpuscular Hemoglobin 30 31 25-34 PG Mean Corpuscular Hemoglobin Concent 34 34 32-36 G/DL Red Cell Distribution Width 12.6 12.5 10.0-14.5 % Platelet Count 271 234 130-400 10^3/uL Mean Platelet Volume 12.0 H 11.8 H 7.4-10.4 FL Neutrophils (%) (Auto) 90 H 84 H 42-75 % Lymphocytes (%) (Auto) 4 L 7 L 12-44 % Monocytes (%) (Auto) 5 9 0-12 % Eosinophils (%) (Auto) 0 0 0-10 % Basophils (%) (Auto) 0 0 0-10 % Neutrophils # (Auto) 8.9 H 7.1 1.8-7.8 X 10^3 Lymphocytes # (Auto) 0.4 L 0.6 L 1.0-4.0 X 10^3 Monocytes # (Auto) 0.5 0.8 0.0-1.0 X 10^3 Eosinophils # (Auto) 0.0 0.0 0.0-0.3 10^3/uL Basophils # (Auto) 0.0 0.0 0.0-0.1 10^3/uL Neutrophils % (Manual) 88 % Lymphocytes % (Manual) 3 % Monocytes % (Manual) 2 % Band Neutrophils 7 % Toxic Granulation 1+ Blood Morphology Comment NORMAL Prothrombin Time 14.8 H 12.2-14.7 SEC INR Comment 1.2 0.8-1.4 Activated Partial Thromboplast Time 34 24-35 SEC Sodium Level 130 L 133 L 135-145 MMOL/L Potassium Level 4.2 4.3 3.6-5.0 MMOL/L Chloride Level 97 L 104 98-107 MMOL/L Carbon Dioxide Level 23 20 L 21-32 MMOL/L Anion Gap 10 9 5-14 MMOL/L Blood Urea Nitrogen 35 H 26 H 7-18 MG/DL Creatinine 1.46 H 1.17 0.60-1.30 MG/DL Estimat Glomerular Filtration Rate 46 60 BUN/Creatinine Ratio 24 22 Glucose Level 212 H 106 H 70-105 MG/DL Lactic Acid Level 2.20 *H 1.37 0.50-2.00 MMOL/L Calcium Level 8.8 8.2 L 8.5-10.1 MG/DL Total Bilirubin 0.7 0.1-1.0 MG/DL Aspartate Amino Transf (AST/SGOT) 24 5-34 U/L Alanine Aminotransferase (ALT/SGPT) 48 0-55 U/L Alkaline Phosphatase 89 40-136 U/L Total Protein 6.6 6.4-8.2 GM/DL Albumin 3.2 3.2-4.5 GM/DL Thyroid Stimulating Hormone (TSH) 3.01 0.35-4.94 UIU/ML Free Thyroxine 1.16 0.70-1.48 NG/DL Urine Color RED H Urine Clarity VERY CLOUDY H Urine pH 7 5-9 Urine Specific [place] 1.005 L 1.016-1.022 Urine Protein 4+ NEGATIVE Urine Glucose (UA) NEGATIVE NEGATIVE Urine Ketones 1+ H NEGATIVE Urine Nitrite NEGATIVE NEGATIVE Urine Bilirubin NEGATIVE NEGATIVE Urine Urobilinogen NORMAL NORMAL MG/DL Urine Leukocyte Esterase 3+ H NEGATIVE Urine RBC (Auto) 5+ H NEGATIVE Urine RBC TNTC H /HPF Urine WBC 25-50 H /HPF Urine Crystals NONE /LPF Urine Bacteria FEW H /HPF Urine Casts NONE /LPF Urine Mucus NEGATIVE /LPF Urine Culture Indicated YES Micro Results Microbiology 08/02/17 Blood Culture - Preliminary, Resulted No growth 08/02/17 Blood Culture - Preliminary, Resulted No growth 08/02/17 Urine Culture - Preliminary, Resulted Sent To [facility] My Orders Orders - MARISOL ROSE MD Cbc With Automated Diff (08/02/17 11:33) Comprehensive Metabolic Panel (08/02/17 11:33) Lactic Acid Analyzer (08/02/17 11:33) Blood Culture (08/02/17 11:33) Sputum Culture (08/02/17 11:33) Ua Culture If Indicated (08/02/17 11:33) Protime With Inr (08/02/17 11:33) Partial Thromboplastin Time (08/02/17 11:33) Chest 1 View, Ap/Pa Only (08/02/17 11:33) O2 (08/02/17 11:33) Saline Lock/Iv-Start (08/02/17 11:33) Saline Lock/Iv-Start (08/02/17 11:33) Vital Signs Adult Sepsis Patie Q1H (08/02/17 11:33) Remove Rings In Anticipation O (08/02/17 11:33) Saline Lock/Iv-Start (08/02/17 11:33) Ns Iv 1000 Ml (Sodium Chloride 0.9%) (08/02/17 11:33) Manual Differential (08/02/17 11:30) Urine Culture (08/02/17 12:46) Lorazepam Injection (Ativan Injection) (08/02/17 13:30) Thyroid Stimulating Hormone (08/02/17 13:35) Free T4 (Free Thyroxine) (08/02/17 13:35) Ceftriaxone Injection (Rocephin Injectio (08/02/17 13:45) Iv Infusion <= First Hr Ed (08/02/17 ) Medications Given in ED Vital Signs/I&O 08/03/17 08/03/17 08/03/17 08/03/17 11:50 12:00 13:00 13:39 Temp 100.9 101.3 99.8 Pulse 101 103 Resp 20 B/P (MAP) 131/68 (89) Pulse Ox 98 O2 Delivery Nasal Cannula O2 Flow Rate 2.00 08/03/17 08/03/17 14:30 19:00 Temp 98.9 Pulse 81 Capillary Refill : Less Than 3 Seconds Blood Pressure Mean: 89 Progress Note : Progress Note Patient was seen and evaluated. Septic workup was pursued. Patient was found to have evidence of urinary tract infection with white cells and bacteria on UA as well as too numerous to count red blood cells. He was started on Rocephin for initial treatment of urinary tract infection. A liter of IV normal saline was infused. Ativan 0.5 mg IV was given for agitation. Diagnostic Imaging Diagonstic Imaging: Xray Plain Films/CT/US/NM/MRI: chest Comments Chest x-ray viewed by me and report reviewed. See report below: NAME: ROSALBA SMITH [facility] REC#: [id number] PT STATUS: REG ER : 1935 PHYSICIAN: MARISOL ROSE MD ADMIT DATE: 08/02/17/ER Draft Date of Exam:08/02/17 CHEST 1 VIEW, AP/PA ONLY INDICATION: Fever and hematuria. TIME OF EXAM: 12:13 PM Correlation is made with prior study from 07/19/2017. FINDINGS: The heart size is stable. There is minimal atelectasis in the right base. No infiltrates are seen. No effusion or pneumothorax is detected. Postop changes in the lower cervical spine are noted. IMPRESSION: Subsegmental right basilar atelectasis. The study is otherwise unremarkable. Dictated on workstation # [id number] Dict: 08/02/17 1223 Trans: 08/02/17 1227 [id number] Interpreted by: ROBERT DEMPSEY MD Departure Communication (Admissions) Time/Spoke to Admitting Phy: 13:27 Dr. Sena Impression Primary Impression: Sepsis Qualified Codes: A41.9 - Sepsis, unspecified organism Additional Impressions: Urinary tract infection Qualified Codes: N39.0 - Urinary tract infection, site not specified; R31.9 - Hematuria, unspecified Hematuria Qualified Codes: R31.9 - Hematuria, unspecified Renal insufficiency Agitation Disposition: 09 ADMITTED INPATIENT Condition: Improved Admissions Decision to Admit Reason: Admit from ER (General) Decision to Admit/Date: August 02, 2017 Time/Decision to Admit Time: 11:20 Departure-Patient Inst. Referrals: ISI SENA MD (PCP/Family) Primary Care Physician MARISOL ROSE MD August 02, 2017 13:35
[2017-08-02] MEDS ORDERED: cefTRIAXone INJECTION 1,000 MG in NS (IVPB) 50 ML IV ONE (13:45)
[2017-08-02 14:05] VITALS: BP 112/51
[2017-08-02 14:12] LABS: FREE T4 (FREE THYROXINE) 1.16 NG/DL (0.70-1.48)
[2017-08-02] MEDS ORDERED: ONDANSETRON 4 MG/2 ML (SDV) Z0FRAN IV PRN (14:15)
[2017-08-02] MEDS ORDERED: CATHETER FLUSH 10 ML SYR IV PRN (14:15)
[2017-08-02] MEDS: NS IV 1000 ML 1,000 ML IV SCH ×2 (14:42→23:06)
[2017-08-02] MEDS ORDERED: TRAM50TA2 PO (14:49)
[2017-08-02] MEDS ORDERED: ACET325T38 PO (14:49)
[2017-08-02] MEDS ORDERED: DORZ10DR22 OU (14:49)
[2017-08-02] MEDS ORDERED: MAGN400O7 PEG (14:49)
[2017-08-02] MEDS ORDERED: LACT-72 PEG (14:49)
[2017-08-02] MEDS ORDERED: MELA3TAB PO (14:49)
[2017-08-02] MEDS ORDERED: LEVO500T2 PEG (14:49)
[2017-08-02 16:14] VITALS: BP 127/67
--- NOTE | 2017-08-02 17:45 | History & Physicial ---
History of Present Illness History of Present Illness Reason for visit/HPI 81-year-old male who is currently a resident of [facility] is sent to emergency department this afternoon due to a low-grade fever as well as noting blood from his urine. He currently has a Joe catheter in place and has had it in place over the past 5 days. He was recently in the hospital following cervical neck surgery and subsequently having issues with swallowing. Patient has been unable to swallow since the surgery and currently is in [facility] undergoing rehabilitation for his cervical neck as well as awaiting his swallow reflex to return. Today however [facility] and in the emergency department was noted to be 101.8. He had been given Levaquin 500 mg via the PEG tube prior to arrival. Patient is a little bit agitated and confused. One month ago he was living at home and able to drive himself wherever he needed to go such as doctor visits or groceries. Date of Admission August 02, 2017 at 13:30 Date Seen by Provider: August 02, 2017 Time Seen by Provider: 18:00 I consulted on this patient on 08/02/17 17:40 Attending Physician Bipin Sena MD Admitting Physician Bipin Sena MD Consult Allergies and Home Medications Allergies Coded Allergies: No Known Drug Allergies (Unverified , 10/25/12) Home Medications Acetaminophen 325 Mg Tablet, 650 MG PO Q4H PRN for TEMPATURE OR MILD PAIN, ( Reported) Aspirin 81 Mg Tab.chew, 162 MG PEG DAILY, (Reported) TAKE 2 (81MG) TABS Dorzolamide HCl/Timolol Maleat 10 Ml Drops, 1 DROP OU BID, (Reported) Famotidine 20 Mg Tablet, 20 MG PEG BID, (Reported) Glycerin/Propylene Glycol 30 Ml Drops, 1 DROP OU QID PRN for DRY EYES, (Reported ) Lactose-Reduced Food/Fiber 237 Ml Liquid, 237 ML PEG 5XD, (Reported) Levofloxacin 500 Mg Tablet, 500 MG PEG DAILY, (Reported) 7 DAY THERAPY ORDER DATE 08-02-17 Levothyroxine Sodium 88 Mcg Tablet, 88 MCG PEG DAILY, (Reported) Loteprednol Etabonate 5 Gm Drops.gel, 1 DROP OD DAILY, (Reported) Magnesium Hydroxide 400 Mg/5 Ml Oral.susp, 30 ML PEG DAILY PRN for CONSTIPATION- 7TH LINE, (Reported) Melatonin 3 Mg Tablet, 3 MG PO HS, (Reported) Metoprolol Succinate 100 Mg Tab.er.24h, 100 MG PEG DAILY, (Reported) HOLD AND NOTIFY PHYSICIAN FOR SYSTOLIC LESS THAN 100 AND OR DIASTOLIC LESS THAN 60. HOLD AND NOTIFY PHYSICIAN FOR PULSE LESS THAN OR EQUAL TO 60 Tramadol HCl 50 Mg Tablet, 50 MG PO Q6H PRN for PAIN-MODERATE, (Reported) Patient Home Medication List Home Medication List Reviewed: Yes Past Bjykepl-Jlqkcg-Zscakv Hx Patient Social History Marrital Status: Alcohol Use: Rarely Uses Recreational Drug Use: No Smoking Status: Former Smoker Former Smoker, Quit: Mar 11, 1989 Type Used: Cigarettes Recent Foreign Travel: No Contact w/other who traveled: No Recent Hopitalizations: No Recent Infectious Disease Expo: No Immunizations Up To Date Date of Pneumonia Vaccine: Nov 12, 2015 Date of Influenza Vaccine: Dec 06, 2015 Seasonal Allergies Seasonal Allergies: No Surgeries Yes (CORNEA TRANSPLANT, MASTOIDECTOMY, eyelid reduction, L TKR, neck, PEG tube) Gallbladder, Joint Replacement, Orthopedic Respiratory No Cardiovascular Yes (STENTS X2-LAST ONE COUPLE YEARS AGO) Coronary Artery Disease, High Cholesterol, Hypertension Neurological Yes (dysphagia) Reproductive System Hx Reproductive Disorders: No Sexually Transmitted Disease: No HIV/AIDS: No Genitourinary Yes (joe cath since having sx on cervical spin for stenosis) Gastrointestinal Yes (peg tube placement since having sx on cervical spine for stenosis) Chronic Constipation Musculoskeletal Yes (spinal stenosis, ) Arthritis, Chronic Back Pain Endocrine History of Endocrine Disorders: No Endocrine Disorders: Hypothyroidsim HEENT History of HEENT Disorders: Yes HEENT Disorders: Glaucoma Loss of Vision: Bilateral Hearing Impairment: Denies Cancer No Psychosocial History of Psychiatric Problem: No Integumentary History of Skin or Integumenta: No Blood Transfusions History of Blood Disorders: No Adverse Reaction to a Blood Tr: No Family Medical History Family Hx: LUNG CANCER G8 BROTHER Myocardial infarction 19 MOTHER Constitutional: see HPI Physical Exam Vital Signs Vital Signs - First Documented 08/02/17 11:15 Temp 101.8 Pulse 93 Resp 12 B/P (MAP) 116/75 (89) Pulse Ox 98 O2 Delivery Nasal Cannula O2 Flow Rate 2.00 Capillary Refill : Less Than 3 Seconds General Appearance: No Apparent Distress Eyes: Bilateral Eye Normal Inspection HEENT: Moist Mucous Membranes Respiratory: Lungs Clear Cardiovascular: Regular Rate, Rhythm Gastrointestinal: Soft Rectal: Deferred Back: Normal Inspection Extremity: Normal Capillary Refill Neurologic/Psychiatric: Oriented x3 Skin: Normal Color Comments NAME: ROSALBA [facility]ITH [facility] REC#: [id number] PT STATUS: ADM IN : 1935 PHYSICIAN: MARISOL ROSE MD ADMIT DATE: 08/02/17/ Signed Date of Exam: 08/02/17 CHEST 1 VIEW, AP/PA ONLY INDICATION: Fever and hematuria. TIME OF EXAM: 12:13 PM Correlation is made with prior study from 07/19/2017. FINDINGS: The heart size is stable. There is minimal atelectasis in the right base. No infiltrates are seen. No effusion or pneumothorax is detected. Postop changes in the lower cervical spine are noted. IMPRESSION: Subsegmental right basilar atelectasis. The study is otherwise unremarkable. Dictated by: Dictated on workstation # [id number] Dict: 08/02/17 1223 Trans: 08/02/17 1553 Interpreted by: ROBERT DEMPSEY MD Electronically signed by: ROBERT DEMPSEY MD 08/02/17 1553 Assessment/Plan Assessment and Plan 1. Sepsis suspected due to the slightly elevated lactic acid as well as his fever -Patient to be placed on IV ceftriaxone -He has blood cultures, sputum and urine cultures pending -Check CBC in the morning 2. Urinary tract infection -Urine culture pending 3. Hematuria and this may be due to the UTI versus previous trauma from him removing the Joe while the bulb was inflated. -Joe to be maintained in place for now 4. Dehydration -IV fluids at 125 mL per hour. -Recheck chemistries in the morning Admission Diagnosis 1. Sepsis suspected due to the slightly elevated lactic acid as well as his fever 2. Urinary tract infection 3. Hematuria and this may be due to the UTI versus previous trauma from him removing the Joe while the bulb was inflated. 4. Dehydration Admission Status: Inpatient Order (span 2 midnights) Reason for Inpatient Admission: Further monitoring for his suspected sepsis. Monitor temperature as well as his urine output. He will receive antibiotics for the presumed sepsis due to UTI. BIPIN SENA MD August 02, 2017 17:45
[2017-08-02] MEDS ORDERED: LORazepam INJ 2 MG/ML (ATIVAN) VIAL ONE (18:13)
[2017-08-02] MEDS: APAP 325 MG/10.15 ML LIQ (TYLENOL) UDC PEG PRN (18:25)
[2017-08-02 19:53] VITALS: BP 124/65
[2017-08-03] VITALS: BP 136/62
[2017-08-03] MEDS: LORazepam INJ 2 MG/ML (ATIVAN) VIAL IVP PRN ×3 (02:04→22:33)
[2017-08-03 04:00] VITALS: BP 107/63
[2017-08-03] MEDS: NS IV 1000 ML 1,000 ML IV SCH ×3 (06:04→22:33)
[2017-08-03 06:22] LABS: BASOPHILS % (AUTO) 0 % (0-10); EOSINOPHILS % (AUTO) 0 % (0-10); HEMATOCRIT 29 % (40-54); HEMOGLOBIN 9.8 G/DL (13.3-17.7); LYMPHOCYTES # (AUTO) 0.6 X 10^3 (1.0-4.0); LYMPHOCYTES % (AUTO) 7 % (12-44); MEAN CORPUSCULAR HEMOGLOBIN 31 PG (25-34); MEAN CORPUSCULAR HGB CONC 34 G/DL (32-36); MEAN CORPUSCULAR VOLUME 91 FL (80-99); MEAN PLATELET VOLUME 11.8 FL (7.4-10.4); MONOCYTES # (AUTO) 0.8 X 10^3 (0.0-1.0); MONOCYTES % (AUTO) 9 % (0-12); NEUTROPHILS # (AUTO) 7.1 X 10^3 (1.8-7.8); NEUTROPHILS % (AUTO) 84 % (42-75); PLATELET COUNT 234 10^3/uL (130-400); RED BLOOD COUNT 3.21 10^6/uL (4.35-5.85); RED CELL DISTRIBUTION WIDTH 12.5 % (10.0-14.5); WHITE BLOOD COUNT 8.5 10^3/uL (4.3-11.0)
[2017-08-03 06:51] LABS: CALCIUM 8.2 MG/DL (8.5-10.1); CREATININE SERUM 1.17 MG/DL (0.60-1.30); POTASSIUM 4.3 MMOL/L (3.6-5.0)
[2017-08-03] MEDS ORDERED: ACETAMINOPHEN 325 MG TABLET/CAPLET (TYLENOL) PO PRN (07:30)
--- NOTE | 2017-08-03 07:34 | Progress Note (SOAP) ---
Subjective Date Seen by Provider: August 03, 2017 Time Seen by Provider: 07:40 Subjective/Events-last exam Patient appeared to be a little bit confused this morning but ultimately did recognize me during rounds. He reports he would like to try the swallow study again. Focused Exam Lactate Level 08/02/17 11:30: Lactic Acid Level 2.20*H 08/02/17 14:33: Lactic Acid Level 1.37 Objective Exam Vital Signs Date Time Temp Pulse Resp B/P (MAP) Pulse Ox O2 Delivery O2 Flow Rate FiO2 08/03/17 04:00 98.8 112 20 107/63 (78) 98 Nasal Cannula 2.00 08/03/17 01:00 120 08/03/17 00:00 99.7 111 22 136/62 (86) 96 Nasal Cannula 2.00 08/02/17 21:00 Nasal Cannula 2.00 08/02/17 20:47 95 08/02/17 19:53 98.8 96 20 124/65 (84) 100 Nasal Cannula 2.00 08/02/17 19:23 97 Nasal Cannula 2.00 08/02/17 18:10 Nasal Cannula 08/02/17 16:14 99.3 99 20 127/67 (87) 100 Nasal Cannula 2.00 08/02/17 14:14 99.1 95 20 103/68 99 08/02/17 14:05 98.1 101 18 112/51 (71) 96 Nasal Cannula 08/02/17 12:30 100.5 92 20 103/68 98 08/02/17 11:15 101.8 93 12 116/75 (89) 97 08/02/17 11:15 98 Nasal Cannula 2.00 I & O 08/03/17 07:00 Intake Total 480 ml Output Total 1100 ml Balance -620 ml Capillary Refill : Less Than 3 Seconds General Appearance: No Apparent Distress Results Lab Laboratory Tests 08/02/17 11:30: White Blood Count 9.8, Red Blood Count 3.65L, Hemoglobin 11.1L, Hematocrit 33L, Mean Corpuscular Volume 89, Mean Corpuscular Hemoglobin 30, Mean Corpuscular Hemoglobin Concent 34, Red Cell Distribution Width 12.6, Platelet Count 271, Mean Platelet Volume 12.0H, Neutrophils (%) (Auto) 90H, Lymphocytes (%) (Auto) 4L, Monocytes (%) (Auto) 5, Eosinophils (%) (Auto) 0, Basophils (%) (Auto) 0, Neutrophils # (Auto) 8.9H, Lymphocytes # (Auto) 0.4L, Monocytes # (Auto) 0.5, Eosinophils # (Auto) 0.0, Basophils # (Auto) 0.0, Neutrophils % (Manual) 88, Lymphocytes % (Manual) 3, Monocytes % (Manual) 2, Band Neutrophils 7, Toxic Granulation 1+, Blood Morphology Comment NORMAL, Prothrombin Time 14.8H, INR Comment 1.2, Activated Partial Thromboplast Time 34, Sodium Level 130L, Potassium Level 4.2, Chloride Level 97L, Carbon Dioxide Level 23, Anion Gap 10, Blood Urea Nitrogen 35H, Creatinine 1.46H, Estimat Glomerular Filtration Rate 46 , BUN/Creatinine Ratio 24, Glucose Level 212H, Lactic Acid Level 2.20*H, Calcium Level 8.8, Total Bilirubin 0.7, Aspartate Amino Transf (AST/SGOT) 24, Alanine Aminotransferase (ALT/SGPT) 48, Alkaline Phosphatase 89, Total Protein 6.6, Albumin 3.2, Thyroid Stimulating Hormone (TSH) 3.01, Free Thyroxine 1.16 08/02/17 12:46: Urine Color REDH, Urine Clarity VERY CLOUDYH, Urine pH 7, Urine Specific [place] 1.005L, Urine Protein 4+, Urine Glucose (UA) NEGATIVE, Urine Ketones 1+H , Urine Nitrite NEGATIVE, Urine Bilirubin NEGATIVE, Urine Urobilinogen NORMAL, Urine Leukocyte Esterase 3+H, Urine RBC (Auto) 5+H, Urine RBC TNTCH, Urine WBC 25-50H, Urine Crystals NONE, Urine Bacteria FEWH, Urine Casts NONE, Urine Mucus NEGATIVE, Urine Culture Indicated YES 08/02/17 14:33: Lactic Acid Level 1.37 08/03/17 05:35: White Blood Count 8.5, Red Blood Count 3.21L, Hemoglobin 9.8L, Hematocrit 29L, Mean Corpuscular Volume 91, Mean Corpuscular Hemoglobin 31, Mean Corpuscular Hemoglobin Concent 34, Red Cell Distribution Width 12.5, Platelet Count 234, Mean Platelet Volume 11.8H, Neutrophils (%) (Auto) 84H, Lymphocytes (%) (Auto) 7L, Monocytes (%) (Auto) 9, Eosinophils (%) (Auto) 0, Basophils (%) (Auto) 0, Neutrophils # (Auto) 7.1, Lymphocytes # (Auto) 0.6L, Monocytes # (Auto) 0.8, Eosinophils # (Auto) 0.0, Basophils # (Auto) 0.0, Sodium Level 133L, Potassium Level 4.3, Chloride Level 104, Carbon Dioxide Level 20L, Anion Gap 9, Blood Urea Nitrogen 26H, Creatinine 1.17, Estimat Glomerular Filtration Rate 60, BUN/ Creatinine Ratio 22, Glucose Level 106H, Calcium Level 8.2L Microbiology 08/02/17 Urine Culture - Preliminary, Resulted Sent To [facility] Assessment/Plan Assessment/Plan Assess & Plan/Chief Complaint 1. Sepsis suspected due to the slightly elevated lactic acid as well as his fever -Patient to be placed on IV ceftriaxone -He has blood cultures, sputum and urine cultures pending -Check CBC in the morning 08/03 -Check cbc in the am. HG down today 2. Urinary tract infection -Urine culture pending 3. Hematuria and this may be due to the UTI versus previous trauma from him removing the Manzano while the bulb was inflated. -Manzano to be maintained in place for now 4. Dehydration -IV fluids at 125 mL per hour. -Recheck chemistries in the morning 5. Dysphagia -dysphagia evaluation today. Clinical Quality Measures Admission Status Admission Dx 1. Sepsis suspected due to the slightly elevated lactic acid as well as his fever -Patient to be placed on IV ceftriaxone -He has blood cultures, sputum and urine cultures pending -Check CBC in the morning 2. Urinary tract infection -Urine culture pending 3. Hematuria and this may be due to the UTI versus previous trauma from him removing the Manzano while the bulb was inflated. -Manzano to be maintained in place for now 4. Dehydration -IV fluids at 125 mL per hour. -Recheck chemistries in the morning DVT/VTE Risk/Contraindication: Risk Factor Score Per Nursin RFS Level Per Nursing on Admit: 4+=Very High ISI SENA MD August 03, 2017 07:33
[2017-08-03 08:00] VITALS: BP 132/58
[2017-08-03] MEDS ORDERED: ARTIFICAL TEARS 0.4 ML UNIT DOSE (REFRESH PLUS) OU PRN (08:00)
[2017-08-03] MEDS ORDERED: NON-FORMULARY MEDICATION 1 EA EA (Loteprednol Etabonate (Lotemax) 1 DROP) OD SCH (09:00)
[2017-08-03] MEDS: meTOprolol SUCCINATE 100 MG (TOPROL XL) TAB PO SCH (09:08)
[2017-08-03] MEDS: FAMOTIDINE 20 MG (PEPCID) TABLET PEG SCH ×2 (09:09→20:38)
[2017-08-03] MEDS: LEVOTHYROXINE 88 MCG (LEVOTHORID) TAB PEG SCH (09:09)
[2017-08-03] MEDS: DORZOLAMIDE/TIMOLOL (COSOPT) 2-0.68% 10 ML BTL OU SCH ×2 (09:09→20:38)
--- NOTE | 2017-08-03 11:47 | ST Dysphagia Evaluation ---
Speech Evaluation-General Medical Diagnosis Hematuria, UTI, Suspected Sepsis Onset Date: August 02, 2017 Therapy Diagnosis Therapy Diagnosis: Severe Oropharyngeal Dysphagia Precautions Precautions: Aspiration Precautions/Isolations: Fall Prevention, Standard Precautions Referral Referring Physician: Dr. Bipin Baldwin Reason for Referral: Evaluation/Treatment Bedside Swallowing Evaluation Medical History Pertinent Medical History: Arthritis, HTN, Hypothroidism The patient is known to this clinician from a previous, recent admission for a surgical spine procedure. At the patient's prior hospitalization, a PEG tube was placed due to severe pharyngeal dysphagia secondary to pharyngeal edema following a cervical spine procedure. Current History The patient was recently admitted to [facility] with a diagnosis of hematuria, suspected sepsis, and dysphagia. Reviewed History: Yes Speech PLF/Current-Dysphagia Prior Level of Function The patient is known to this clinician from a previous, recent hospitalization for a cervical spine procedure. Due to post-operative pharyngeal swelling, the patient displayed severe pharyngeal dysphagia and aspiration visualized on a modified barium swallow evaluation. The patient had a PEG tube placed at that time and receives total nutrition, hydration, and medication via PEG tube. Subjective The patient was seated upright in bed upon entrance. The patient made eye contact and verbally greeted the clinician. The patient was agreeable to participation in the dysphagia evaluation. To note, the patient appears with increased confusion in comparison to his prior hospitalization, as well as, reduced alertness. CXR: 08/02/17: CXR: Subsegmental right basilar atelectasis. The study is otherwise unremarkable. Cognitive Status Patient Orientation: Confused The patient did not respond to orientation questions poised by the clinician. Oral Motor Skills Dentition: Natural Ability to Follow Directions: Poor The patient is NPO due to overt signs/symptoms of aspiration demonstrated through a previous evaluation. Oral Expression Ability: Moderate Impairment Voice Voice Phonatory-Based Quality: Glottal Wheeler Voice Pitch: Normal Voice Loudness: Normal Face Facial Symmetry: Symmetrical Oral-Facial Assessment Oral-Facial Dentition: Normal Labial Seal Description: Normal Smile: Normal Lingual Protrusion: Normal Lingual ROM: Normal Lingual Strength: Normal Pharynx Velopharyngeal Move.: Normal Volitional Dry Swallow: Yes Dysphagia Evaluation Consistencies Presented: Thin Liquid (Teaspoon trials.), Pureed (Teaspoon trials.) Oral Phase: Anterior Spillage (Thin Liquid.), Reduced Oral Transit - The patient orally held thin liquid material, demonstrating a somewhat retching movement, however, refused to expectorate the material. With maximum verbal cueing, a pharyngeal swallow was initiated. The patient's oral swallow appeared extremely uncoordinated. Pharyngeal Phase: Multiple Swallow Attempts, Delayed Swallow Funct. Velo/Pharyngeal Symptom: Clears Throat, Cough After Swallow, Wet Voice - Thin Liquid (teaspoon) and Puree (teaspoon): The patient demonstrated consistent signs/symptoms of aspiration with boluses of thin liquid and puree by displaying a wet vocal quality, gagging and throat clearing on all boluses, and a delayed cough. The patient displays an extremely uncoordinated swallow response. Dietary Recommendations: NPO Liquid Recommendations: NPO - The patient should continue to receive total nutrition, hydration, and medication via PEG tube. Dysphagia Evaluation Summary The patient displays severe oropharyngeal dysphagia characterized by decreased lingual coordination, reduced pharyngeal onset of swallow, and decreased airway protection in the presence of bolus material. Barriers to Learning Reduced Alertness, Altered Mental Status Speech Short Term Goals Short Term Goals Short Term Goals 1. The patient will tolerate 10/10 trials of puree consistencies without signs/ symptoms of aspiration. Time Frame-STG: One Week Speech Senior Care Goals Senior Care Goals 1. The patient will tolerate a diet of the least restrictive consistency without signs/symptoms of aspiration or laryngeal penetration. Time Frame: Two Weeks Speech-Plan Treatment Plan Speech Therapy Treatment Plan: Continue Plan of Care Continue skilled speech pathology to target improved swallowing safety. Treatment Duration: Aug 10, 2017 Frequency: 3 times per week Estimated Hrs Per Day: .25 hour per day Rehab Potential: Poor Safety Risks/Education Teaching Recipient: Patient Teaching Methods: Discussion Response to Teaching: Unable to Comprehend Education Topics Provided: Results, Recommendations, Plan of Care Time Speech Therapy Time In: 10:05 Speech Therapy Time Out: 10:20 Total Billed Time: 15 Billed Treatment Time 1PRECIOUS ELIZABETH August 03, 2017 11:47
[2017-08-03] MEDS: APAP 325 MG/10.15 ML LIQ (TYLENOL) UDC PEG PRN (11:50)
[2017-08-03 12:00] VITALS: BP 131/68
--- NOTE | 2017-08-03 13:23 | Physician Query Clarification ---
PQ-Link Infection to Dev/Proc Admission/Discharge Admission Date: August 02, 2017 at 13:30 Discharge Date: The medical record reflects the following clinical scenario: History/Risk Factors: UTI Joe catheter Clinical Findings: Hematuria Treatment:IV Ceftriaxone Sodium Question: Can you specify if the Sepsis/UTI is due to/associated with the indwelling joe catheter? Please document a response below. PHYSICIAN RESPONSE Specify if infection: Yes,due to/associated with device Explanation of clincal finding The week prior to him becoming septic, he had pulled Joe catheter while the bulb was inflated. He had trauma to the meatus as well. In responding to this query, please exercise your independent professional judgment. The purpose of this communication is to more accurately reflect the complexity of your patients condition. The fact that a question is asked does not imply that any particular answer is desired or expected. Thank you for your timely response to this clarification. Requestors name: Alva Suárez [facility] Phone # ext [phone] or [phone] THIS PHYSICIAN QUERY FORM IS A PERMANENT PART OF THE MEDICAL RECORD ALVA SUÁREZ August 03, 2017 13:23 ISI SENA MD Aug 04, 2017 07:56
[2017-08-03 16:30] VITALS: BP 109/61
[2017-08-03 20:15] VITALS: BP 108/69
[2017-08-04 00:41] VITALS: BP 128/69
[2017-08-04 04:28] VITALS: BP 130/82
[2017-08-04 05:34] LABS: BASOPHILS % (AUTO) 0 % (0-10); EOSINOPHILS # (AUTO) 0.3 10^3/uL (0.0-0.3); EOSINOPHILS % (AUTO) 4 % (0-10); HEMATOCRIT 30 % (40-54); HEMOGLOBIN 9.9 G/DL (13.3-17.7); LYMPHOCYTES # (AUTO) 0.9 X 10^3 (1.0-4.0); LYMPHOCYTES % (AUTO) 13 % (12-44); MEAN CORPUSCULAR HEMOGLOBIN 30 PG (25-34); MEAN CORPUSCULAR HGB CONC 33 G/DL (32-36); MEAN CORPUSCULAR VOLUME 92 FL (80-99); MONOCYTES # (AUTO) 0.7 X 10^3 (0.0-1.0); MONOCYTES % (AUTO) 11 % (0-12); NEUTROPHILS # (AUTO) 4.8 X 10^3 (1.8-7.8); NEUTROPHILS % (AUTO) 72 % (42-75); PLATELET COUNT 215 10^3/uL (130-400); RED BLOOD COUNT 3.28 10^6/uL (4.35-5.85); RED CELL DISTRIBUTION WIDTH 12.8 % (10.0-14.5); WHITE BLOOD COUNT 6.6 10^3/uL (4.3-11.0)
[2017-08-04] MEDS: NS IV 1000 ML 1,000 ML IV SCH ×3 (06:21→22:07)
--- NOTE | 2017-08-04 08:01 | Progress Note (SOAP) ---
Subjective Date Seen by Provider: Aug 04, 2017 Time Seen by Provider: 07:45 Subjective/Events-last exam Patient alert this morning and communicating well. He still is somewhat upset that he is not getting better. I informed him his swallowing is still preventing him from eating. He currently denies any pain. Focused Exam Lactate Level 08/02/17 11:30: Lactic Acid Level 2.20*H 08/02/17 14:33: Lactic Acid Level 1.37 Objective Exam Vital Signs Date Time Temp Pulse Resp B/P (MAP) Pulse Ox O2 Delivery O2 Flow Rate FiO2 08/04/17 04:28 97.5 90 18 130/82 (98) 98 Nasal Cannula 2.00 08/04/17 01:00 91 08/04/17 00:41 97.7 101 20 128/69 (88) 97 Nasal Cannula 2.00 08/03/17 20:38 Nasal Cannula 2.00 08/03/17 20:15 97.5 86 18 108/69 (82) 99 Nasal Cannula 2.00 08/03/17 19:00 81 08/03/17 16:30 97.8 93 18 109/61 (77) 96 Nasal Cannula 2.00 08/03/17 14:30 98.9 08/03/17 13:39 99.8 08/03/17 13:00 103 08/03/17 12:00 101.3 101 20 131/68 (89) 98 Nasal Cannula 2.00 08/03/17 11:50 100.9 08/03/17 09:44 Nasal Cannula 2.00 08/03/17 09:00 Nasal Cannula 2.00 08/03/17 08:00 98.2 92 22 132/58 (82) 96 Nasal Cannula 2.00 I & O 08/04/17 07:00 Intake Total 5932 ml Output Total 3850 ml Balance 2082 ml Capillary Refill : Less Than 3 Seconds General Appearance: No Apparent Distress HEENT: Moist Mucous Membranes (Mild) Neck: Supple Respiratory: Lungs Clear Cardiovascular: Irregularly Irregular (With rate of 84) Gastrointestinal: soft Results Lab Laboratory Tests 08/04/17 05:10: White Blood Count 6.6, Red Blood Count 3.28L, Hemoglobin 9.9L, Hematocrit 30L, Mean Corpuscular Volume 92, Mean Corpuscular Hemoglobin 30, Mean Corpuscular Hemoglobin Concent 33, Red Cell Distribution Width 12.8, Platelet Count 215, Mean Platelet Volume 11.0H, Neutrophils (%) (Auto) 72, Lymphocytes (%) (Auto) 13 , Monocytes (%) (Auto) 11, Eosinophils (%) (Auto) 4, Basophils (%) (Auto) 0, Neutrophils # (Auto) 4.8, Lymphocytes # (Auto) 0.9L, Monocytes # (Auto) 0.7, Eosinophils # (Auto) 0.3, Basophils # (Auto) 0.0 Microbiology 08/02/17 Blood Culture - Preliminary, Resulted No growth 08/02/17 Urine Culture - Preliminary, Resulted Sent To [facility] Assessment/Plan Assessment/Plan Assess & Plan/Chief Complaint 1. Sepsis suspected due to the slightly elevated lactic acid as well as his fever -Patient to be placed on IV ceftriaxone -He has blood cultures, sputum and urine cultures pending -Check CBC in the morning 08/03 -Check cbc in the am. HG down today 08/04 -White blood cell count within normal range this morning. -Blood cultures have no growth 2. Urinary tract infection -Urine culture pending 3. Hematuria and this may be due to the UTI versus previous trauma from him removing the Manzano while the bulb was inflated. -Manzano to be maintained in place for now 08/04 -Visualization of the urine grossly appears to be slowly clearing 4. Dehydration -IV fluids at 125 mL per hour. -Recheck chemistries in the morning 08/04 -Will switch patient over to complete PEG tube feedings as his infection clears. 5. Dysphagia -dysphagia evaluation today. 08/04 -Patient apparently did not pass his swallow study on August 03, 2017. -He still continues to have speech therapy Clinical Quality Measures Admission Status Admission Dx 1. Sepsis suspected due to the slightly elevated lactic acid as well as his fever -Patient to be placed on IV ceftriaxone -He has blood cultures, sputum and urine cultures pending -Check CBC in the morning 2. Urinary tract infection -Urine culture pending 3. Hematuria and this may be due to the UTI versus previous trauma from him removing the Manzano while the bulb was inflated. -Manzano to be maintained in place for now 4. Dehydration -IV fluids at 125 mL per hour. -Recheck chemistries in the morning DVT/VTE Risk/Contraindication: Risk Factor Score Per Nursin RFS Level Per Nursing on Admit: 4+=Very High ISI SENA MD Aug 04, 2017 08:01
[2017-08-04 08:30] VITALS: BP 136/69
[2017-08-04] MEDS ORDERED: LORazepam INJ 2 MG/ML (ATIVAN) VIAL ONE (08:50)
[2017-08-04] MEDS: DORZOLAMIDE/TIMOLOL (COSOPT) 2-0.68% 10 ML BTL OU SCH ×2 (08:54→21:04)
[2017-08-04] MEDS: LORazepam INJ 2 MG/ML (ATIVAN) VIAL IVP PRN ×2 (08:55→16:51)
[2017-08-04] MEDS: FAMOTIDINE 20 MG (PEPCID) TABLET PEG SCH ×2 (08:55→21:03)
[2017-08-04] MEDS: LEVOTHYROXINE 88 MCG (LEVOTHORID) TAB PEG SCH (08:55)
[2017-08-04] MEDS: meTOprolol SUCCINATE 100 MG (TOPROL XL) TAB PO SCH (08:55)
--- NOTE | 2017-08-04 10:29 | Speech Therapy Daily Note ---
Speech Daily Progress Note Subjective Date Seen by Provider: Aug 04, 2017 Time Seen by Provider: 07:55 The patient was laying in bed, moaning upon entrance. Per patient, "Finally! I had four people stop by and tell me they'd be right back." The patient is somewhat agitated and remains confused. The clinician aided the patient is untangling leads, IV cords, his call light, and his catheter tubing. With the aid of nursing, the patient was repositioned in bed. The patient was placed upright by the clinician for the re-evaluation of his swallowing function. Objective - Oral care was provided by the clinician prior to oral bolus trials. - Thin Liquid: The patient's vocal quality grew increasingly wet as the third teaspoon of thin liquid was attempted. Immediately following the third teaspoon of water, the patient began rigorously clearing his throat and attempting to expectorate material into the oral cavity. Once the patient ceased clearing his throat, additional bolus trials were attempted. Following the fifth teaspoon attempt of thin liquid the patient displayed delayed throat clearing and coughing. Per patient, "I think you better just wait." - Puree: The patient displayed an immediate throat clear following multiple swallow attempts with teaspoon size trials of puree. The patient continued to "hack" the material from his throat and expectorate it into a tissue. Per patient, "It don't want to swallow." The patient was offered additional trials of puree, however, consistently refused. - The clinician attempted to return to liquid consistencies to complete an extended dysphagia evaluation. Two additional teaspoons of water were attempted with immediate throat clearing. The patient stated, "no" when offered additional thickened liquid trials by the clinician. At this time, the patient should remain NPO with total nutrition, hydration, and medication received via PEG tube due to overt signs/symptoms of aspiration demonstrated throughout the evaluation. Assessment Assessment Current Status: Poor Progress Treatment Plan Continue Plan of Care Speech Short Term Goals Short Term Goals Short Term Goals 1. The patient will tolerate 10/10 trials of puree consistencies without signs/ symptoms of aspiration. Time Frame-STG: One Week Speech Supply Aide Goals Supply Aide Goals 1. The patient will tolerate a diet of the least restrictive consistency without signs/symptoms of aspiration or laryngeal penetration. Time Frame: Two Weeks Speech-Plan Treatment Plan Speech Therapy Treatment Plan: Continue Plan of Care Continue skilled speech pathology to target improved swallowing function. Treatment Duration: Aug 10, 2017 Frequency: 3 times per week Estimated Hrs Per Day: .25 hour per day Rehab Potential: Poor Safety Risks/Education Teaching Recipient: Patient Teaching Methods: Discussion Response to Teaching: Unable to Comprehend Education Topics Provided: Risks of Aspiration with PO intake, Results Time Speech Therapy Time In: 07:55 Speech Therapy Time Out: 08:15 Total Billed Time: 20 Billed Treatment Time 1, NAPOLEON WEST Aug 04, 2017 10:29
[2017-08-04 12:30] VITALS: BP 145/75
[2017-08-04] MEDS: CEFEPIME 2 GM/NS 50 ML IVPB IV SCH ×2 (13:37)
[2017-08-04 16:59] VITALS: BP 145/75
[2017-08-04 19:03] VITALS: BP 142/70
[2017-08-05 00:15] VITALS: BP 129/76
[2017-08-05] MEDS: LORazepam INJ 2 MG/ML (ATIVAN) VIAL IVP PRN (03:38)
[2017-08-05 04:00] VITALS: BP 153/78
[2017-08-05] MEDS: NS IV 1000 ML 1,000 ML IV SCH ×3 (06:08→21:52)
--- NOTE | 2017-08-05 07:44 | Progress Note (SOAP) ---
Subjective Subjective/Events-last exam Patient laying in bed this AM with sitter in room. Has been trying to pull out Manzano. Having some delirium this AM. He is alert to person only. Denies any pain or discomfort. Review of Systems Date Seen by Provider: Aug 05, 2017 Time Seen by Provider: 06:55 Pulmonary: No Dyspnea, No Cough Cardiovascular: No: Chest Pain, Palpitations Gastrointestinal: No: Abdominal Pain Neurological: Confusion Focused Exam Lactate Level 08/02/17 11:30: Lactic Acid Level 2.20*H 08/02/17 14:33: Lactic Acid Level 1.37 Objective Exam Last Set of Vital Signs Vital Signs Date Time Temp Pulse Resp B/P (MAP) Pulse Ox O2 Delivery O2 Flow Rate FiO2 08/05/17 04:00 97.8 80 20 153/78 (103) 97 Room Air 08/04/17 19:03 2.00 Capillary Refill : Less Than 3 Seconds I&O Intake and Output 08/05/17 00:00 Intake Total 4197 ml Output Total 4200 ml Balance -3 ml IV Total 1950 ml Tube Feeding 1947 ml Other 300 ml Output Urine Total 4200 ml # Bowel Movements 1 General: Alert ( to person only) HEENT: Mucous Memb Moist/[place] Lungs: Clear to Auscultation, Normal Air Movement Heart: Regular Rate, No Murmurs Abdomen: Soft, No Tenderness Results/Procedures Lab Microbiology 08/02/17 Blood Culture - Preliminary, Resulted No growth 08/02/17 Urine Culture - Preliminary, Resulted Pseudomonas aeruginosa Assessment/Plan Assessment/Plan Assessment & Plan 1. Sepsis suspected due to the slightly elevated lactic acid as well as his fever -Patient to be placed on IV ceftriaxone -He has blood cultures, sputum and urine cultures pending -Check CBC in the morning 08/03 -Check cbc in the am. HG down today 08/04 -White blood cell count within normal range this morning. -Blood cultures have no growth 08/05: Blood ctx NGTD 2. Urinary tract infection -Urine culture pending 08/05: Pseudomonas, Sensitivities pending, continue current antibiotic 3. Hematuria and this may be due to the UTI versus previous trauma from him removing the Manzano while the bulb was inflated. -Manzano to be maintained in place for now 08/04 -Visualization of the urine grossly appears to be slowly clearing 4. Dehydration -IV fluids at 125 mL per hour. -Recheck chemistries in the morning 08/04 -Will switch patient over to complete PEG tube feedings as his infection clears. 5. Dysphagia -dysphagia evaluation today. 08/04 -Patient apparently did not pass his swallow study on August 03, 2017. -He still continues to have speech therapy 6. Delirium 08/05: Started on Haldol today, likely Dispo: continue admission until cultures return, patient will likely need NH placement Clinical Quality Measures DVT/VTE Risk/Contraindication: Risk Factor Score Per Nursin RFS Level Per Nursing on Admit: 4+=Very High JUAN ALBERTO LAWSON MD Aug 05, 2017 07:44
[2017-08-05 07:50] VITALS: BP 166/80
[2017-08-05] MEDS: meTOprolol SUCCINATE 100 MG (TOPROL XL) TAB PO SCH (09:45)
[2017-08-05] MEDS: LEVOTHYROXINE 88 MCG (LEVOTHORID) TAB PEG SCH (09:45)
[2017-08-05] MEDS: FAMOTIDINE 20 MG (PEPCID) TABLET PEG SCH ×2 (09:45→20:27)
[2017-08-05] MEDS: DORZOLAMIDE/TIMOLOL (COSOPT) 2-0.68% 10 ML BTL OU SCH ×2 (10:01→20:28)
[2017-08-05 12:04] VITALS: BP 133/75
[2017-08-05] MEDS: CEFEPIME 2 GM/NS 50 ML IVPB IV SCH ×2 (12:22)
[2017-08-05 15:25] VITALS: BP 157/80
[2017-08-06 00:45] VITALS: BP 160/82
[2017-08-06] MEDS: LORazepam INJ 2 MG/ML (ATIVAN) VIAL IVP PRN ×2 (02:00→21:02)
[2017-08-06 04:32] VITALS: BP 153/84
[2017-08-06 04:55] LABS: BASOPHILS % (AUTO) 1 % (0-10); EOSINOPHILS # (AUTO) 0.7 10^3/uL (0.0-0.3); EOSINOPHILS % (AUTO) 12 % (0-10); HEMATOCRIT 31 % (40-54); HEMOGLOBIN 10.2 G/DL (13.3-17.7); LYMPHOCYTES # (AUTO) 1.3 X 10^3 (1.0-4.0); LYMPHOCYTES % (AUTO) 22 % (12-44); MEAN CORPUSCULAR HEMOGLOBIN 30 PG (25-34); MEAN CORPUSCULAR HGB CONC 33 G/DL (32-36); MEAN CORPUSCULAR VOLUME 90 FL (80-99); MEAN PLATELET VOLUME 10.9 FL (7.4-10.4); MONOCYTES # (AUTO) 0.7 X 10^3 (0.0-1.0); MONOCYTES % (AUTO) 12 % (0-12); NEUTROPHILS # (AUTO) 3.1 X 10^3 (1.8-7.8); NEUTROPHILS % (AUTO) 53 % (42-75); PLATELET COUNT 244 10^3/uL (130-400); RED BLOOD COUNT 3.45 10^6/uL (4.35-5.85); RED CELL DISTRIBUTION WIDTH 12.5 % (10.0-14.5); WHITE BLOOD COUNT 5.9 10^3/uL (4.3-11.0)
[2017-08-06 05:13] LABS: BUN/CREATININE RATIO 18; CARBON DIOXIDE 22 MMOL/L (21-32); CHLORIDE 108 MMOL/L (98-107); CREATININE SERUM 0.95 MG/DL (0.60-1.30); POTASSIUM 4.9 MMOL/L (3.6-5.0); SODIUM 139 MMOL/L (135-145)
[2017-08-06 05:14] LABS: ALANINE AMINOTRANSFERASE 50 U/L (0-55); ALBUMIN 2.8 GM/DL (3.2-4.5); ALKALINE PHOSPHATASE 79 U/L (40-136); BILIRUBIN,TOTAL 0.4 MG/DL (0.1-1.0); CALCIUM 8.7 MG/DL (8.5-10.1); GFR ESTIMATED > 60; GLUCOSE 88 MG/DL (70-105); TOTAL PROTEIN 6.1 GM/DL (6.4-8.2)
[2017-08-06] MEDS: NS IV 1000 ML 1,000 ML IV SCH ×3 (05:50→21:19)
[2017-08-06 08:00] VITALS: BP 145/75
[2017-08-06] MEDS: meTOprolol SUCCINATE 100 MG (TOPROL XL) TAB PO SCH (10:32)
[2017-08-06] MEDS: LEVOTHYROXINE 88 MCG (LEVOTHORID) TAB PEG SCH (10:32)
[2017-08-06] MEDS: DORZOLAMIDE/TIMOLOL (COSOPT) 2-0.68% 10 ML BTL OU SCH ×2 (10:32→21:02)
[2017-08-06] MEDS: FAMOTIDINE 20 MG (PEPCID) TABLET PEG SCH ×2 (10:32→21:02)
[2017-08-06 12:00] VITALS: BP 154/77
--- NOTE | 2017-08-06 13:22 | Progress Note (SOAP) ---
Subjective Subjective/Events-last exam Patient alert and more appropriate today. Still having some delirum but easy to redirect. BM yesterday. Tolerating tube feeds. Review of Systems Date Seen by Provider: Aug 06, 2017 Time Seen by Provider: 11:00 Pulmonary: No Dyspnea Cardiovascular: No: Chest Pain, Palpitations Neurological: Confusion Objective Exam Last Set of Vital Signs Vital Signs Date Time Temp Pulse Resp B/P (MAP) Pulse Ox O2 Delivery O2 Flow Rate FiO2 08/06/17 12:00 96.8 88 20 154/77 (102) 100 Nasal Cannula 2.00 Capillary Refill : Less Than 3 Seconds I&O Intake and Output 08/05/17 23:59 Intake Total 3805 ml Output Total 5975 ml Balance -2170 ml IV Total 2050 ml Tube Feeding 1315 ml Other 440 ml Output Urine Total 5975 ml # Bowel Movements 3 General: Alert (person only) Lungs: Clear to Auscultation, Normal Air Movement Heart: Regular Rate, No Murmurs Abdomen: Normal Bowel Sounds, Soft, No Tenderness, No Masses Extremities: No Edema, No Tenderness/Swelling Neuro: Other (Disoriented, asking for help but when asked says he doesn't know) Results/Procedures Lab Laboratory Tests 08/06/17 04:38: White Blood Count 5.9, Red Blood Count 3.45L, Hemoglobin 10.2L, Hematocrit 31L, Mean Corpuscular Volume 90, Mean Corpuscular Hemoglobin 30, Mean Corpuscular Hemoglobin Concent 33, Red Cell Distribution Width 12.5, Platelet Count 244, Mean Platelet Volume 10.9H, Neutrophils (%) (Auto) 53, Lymphocytes (%) (Auto) 22 , Monocytes (%) (Auto) 12, Eosinophils (%) (Auto) 12H, Basophils (%) (Auto) 1, Neutrophils # (Auto) 3.1, Lymphocytes # (Auto) 1.3, Monocytes # (Auto) 0.7, Eosinophils # (Auto) 0.7H, Basophils # (Auto) 0.0, Sodium Level 139, Potassium Level 4.9, Chloride Level 108H, Carbon Dioxide Level 22, Anion Gap 9, Blood Urea Nitrogen 17, Creatinine 0.95, Estimat Glomerular Filtration Rate > 60, BUN/ Creatinine Ratio 18, Glucose Level 88, Calcium Level 8.7, Total Bilirubin 0.4, Aspartate Amino Transf (AST/SGOT) 32, Alanine Aminotransferase (ALT/SGPT) 50, Alkaline Phosphatase 79, Total Protein 6.1L, Albumin 2.8L Microbiology 08/02/17 Blood Culture - Preliminary, Resulted No growth 08/02/17 Urine Culture - Final, Complete Pseudomonas aeruginosa Assessment/Plan Assessment/Plan Assessment & Plan 1. Sepsis suspected due to the slightly elevated lactic acid as well as his fever -Patient to be placed on IV ceftriaxone -He has blood cultures, sputum and urine cultures pending -Check CBC in the morning 08/03 -Check cbc in the am. HG down today 08/04 -White blood cell count within normal range this morning. -Blood cultures have no growth 08/05: Blood ctx NGTD 08/06: blood ctx Neg, Continue antibiotics 2. Urinary tract infection -Urine culture pending 08/05: Pseudomonas, Sensitivities pending, continue current antibiotic 3. Hematuria and this may be due to the UTI versus previous trauma from him removing the Manzano while the bulb was inflated. -Manzano to be maintained in place for now 08/04 -Visualization of the urine grossly appears to be slowly clearing 08/06: Draining clear urine 4. Dehydration -IV fluids at 125 mL per hour. -Recheck chemistries in the morning 08/04 -Will switch patient over to complete PEG tube feedings as his infection clears. 5. Dysphagia -dysphagia evaluation today. 08/04 -Patient apparently did not pass his swallow study on August 03, 2017. -He still continues to have speech therapy 6. Delirium 08/05: Started on Haldol today, likely 08/06: Improved today but still disoriented Dispo: continue admission until cultures return, patient will likely need NH placement Clinical Quality Measures DVT/VTE Risk/Contraindication: Risk Factor Score Per Nursin RFS Level Per Nursing on Admit: 4+=Very High JUAN ALBERTO LAWSON MD Aug 06, 2017 13:22
[2017-08-06] MEDS: CEFEPIME 2 GM/NS 50 ML IVPB IV SCH ×2 (13:35)
[2017-08-06 15:49] VITALS: BP 125/79
[2017-08-06 20:54] VITALS: BP 172/73
[2017-08-07] VITALS (7 sets, daily range): BP systolic 140–170; BP diastolic 66–86
[2017-08-07] MEDS: HALOPERIDOL 5 MG/ML (HALDOL) AMP IM PRN ×2 (02:43→16:05)
[2017-08-07] MEDS: NS IV 1000 ML 1,000 ML IV SCH ×2 (06:22→16:04)
[2017-08-07 06:42] LABS: BASOPHILS % (AUTO) 1 % (0-10); EOSINOPHILS # (AUTO) 0.7 10^3/uL (0.0-0.3); EOSINOPHILS % (AUTO) 9 % (0-10); HEMATOCRIT 31 % (40-54); HEMOGLOBIN 10.7 G/DL (13.3-17.7); LYMPHOCYTES # (AUTO) 1.3 X 10^3 (1.0-4.0); LYMPHOCYTES % (AUTO) 18 % (12-44); MEAN CORPUSCULAR HEMOGLOBIN 31 PG (25-34); MEAN CORPUSCULAR HGB CONC 34 G/DL (32-36); MEAN CORPUSCULAR VOLUME 90 FL (80-99); MEAN PLATELET VOLUME 11.1 FL (7.4-10.4); MONOCYTES # (AUTO) 0.5 X 10^3 (0.0-1.0); MONOCYTES % (AUTO) 7 % (0-12); NEUTROPHILS # (AUTO) 4.8 X 10^3 (1.8-7.8); NEUTROPHILS % (AUTO) 66 % (42-75); PLATELET COUNT 246 10^3/uL (130-400); RED BLOOD COUNT 3.44 10^6/uL (4.35-5.85); RED CELL DISTRIBUTION WIDTH 12.3 % (10.0-14.5); WHITE BLOOD COUNT 7.3 10^3/uL (4.3-11.0)
[2017-08-07 07:10] LABS: ALANINE AMINOTRANSFERASE 69 U/L (0-55); ALBUMIN 2.8 GM/DL (3.2-4.5); ALKALINE PHOSPHATASE 85 U/L (40-136); BILIRUBIN,TOTAL 0.4 MG/DL (0.1-1.0); BUN/CREATININE RATIO 19; CALCIUM 8.7 MG/DL (8.5-10.1); CARBON DIOXIDE 24 MMOL/L (21-32); CHLORIDE 107 MMOL/L (98-107); CREATININE SERUM 0.97 MG/DL (0.60-1.30); GFR ESTIMATED > 60; GLUCOSE 131 MG/DL (70-105); POTASSIUM 3.9 MMOL/L (3.6-5.0); SODIUM 139 MMOL/L (135-145); TOTAL PROTEIN 6.1 GM/DL (6.4-8.2)
--- NOTE | 2017-08-07 07:44 | Progress Note (SOAP) ---
Subjective Date Seen by Provider: Aug 07, 2017 Time Seen by Provider: 07:30 Subjective/Events-last exam Patient resting comfortably in bed this morning. He is somewhat agitated and I believe this is due to frustration from not being able to swallow. He does not voice any complaints this morning the best I can tell. He does not appear to be in any acute pain. Objective Exam Vital Signs Date Time Temp Pulse Resp B/P (MAP) Pulse Ox O2 Delivery O2 Flow Rate FiO2 08/07/17 04:03 98.0 90 20 150/72 (98) 96 Room Air 08/07/17 01:00 86 08/07/17 00:07 97.8 91 19 142/66 (91) 97 Room Air 08/06/17 21:00 Room Air 08/06/17 20:54 98.2 79 18 172/73 (106) 94 Room Air 08/06/17 19:00 95 08/06/17 15:49 94.8 83 18 125/79 (94) 99 Room Air 08/06/17 13:20 77 08/06/17 12:00 96.8 88 20 154/77 (102) 100 Nasal Cannula 2.00 08/06/17 09:00 Nasal Cannula 2.00 08/06/17 08:00 96.3 80 20 145/75 (98) 98 Nasal Cannula 2.00 I & O 08/07/17 07:00 Intake Total 2500 ml Output Total 4725 ml Balance -2225 ml Capillary Refill : Less Than 3 Seconds General Appearance: No Apparent Distress HEENT: Other (Mucous membranes are dry (mouth breathing)) Respiratory: Lungs Clear (With no labored breathing) Cardiovascular: Irregularly Irregular (With rate controlled) Gastrointestinal: soft Extremity: No Pedal Edema Skin: Normal Color Results Lab Laboratory Tests 08/07/17 06:10: White Blood Count 7.3, Red Blood Count 3.44L, Hemoglobin 10.7L, Hematocrit 31L, Mean Corpuscular Volume 90, Mean Corpuscular Hemoglobin 31, Mean Corpuscular Hemoglobin Concent 34, Red Cell Distribution Width 12.3, Platelet Count 246, Mean Platelet Volume 11.1H, Neutrophils (%) (Auto) 66, Lymphocytes (%) (Auto) 18 , Monocytes (%) (Auto) 7, Eosinophils (%) (Auto) 9, Basophils (%) (Auto) 1, Neutrophils # (Auto) 4.8, Lymphocytes # (Auto) 1.3, Monocytes # (Auto) 0.5, Eosinophils # (Auto) 0.7H, Basophils # (Auto) 0.0, Sodium Level 139, Potassium Level 3.9, Chloride Level 107, Carbon Dioxide Level 24, Anion Gap 8, Blood Urea Nitrogen 18, Creatinine 0.97, Estimat Glomerular Filtration Rate > 60, BUN/ Creatinine Ratio 19, Glucose Level 131H, Calcium Level 8.7, Total Bilirubin 0.4 , Aspartate Amino Transf (AST/SGOT) 47H, Alanine Aminotransferase (ALT/SGPT) 69H , Alkaline Phosphatase 85, Total Protein 6.1L, Albumin 2.8L Microbiology 08/02/17 Blood Culture - Preliminary, Resulted No growth 08/02/17 Urine Culture - Final, Complete Pseudomonas aeruginosa Assessment/Plan Assessment/Plan Assess & Plan/Chief Complaint 1. Sepsis suspected due to the slightly elevated lactic acid as well as his fever -Patient to be placed on IV ceftriaxone -He has blood cultures, sputum and urine cultures pending -Check CBC in the morning 08/03 -Check cbc in the am. HG down today 08/04 -White blood cell count within normal range this morning. -Blood cultures have no growth 08/05: Blood ctx NGTD 08/06: blood ctx Neg, Continue antibiotics 08/07: He continues on cefepime and today is day number 4 -Discharge planning to via [facility] most likely tomorrow or on August 09 -Attempt was made to contact Marley, his daughter, but no answer 2. Urinary tract infection -Urine culture pending 08/05: Pseudomonas, Sensitivities pending, continue current antibiotic 3. Hematuria and this may be due to the UTI versus previous trauma from him removing the Manzano while the bulb was inflated. -Manzano to be maintained in place for now 08/04 -Visualization of the urine grossly appears to be slowly clearing 08/06: Draining clear urine 4. Dehydration -IV fluids at 125 mL per hour. -Recheck chemistries in the morning 08/04 -Will switch patient over to complete PEG tube feedings as his infection clears. 08/07: Will decrease IV fluids today to 80 mL per hour. 5. Dysphagia -dysphagia evaluation today. 08/04 -Patient apparently did not pass his swallow study on August 03, 2017. -He still continues to have speech therapy 6. Delirium 08/05: Started on Haldol today, likely 08/06: Improved today but still disoriented 08/07: Haldol available but will increase his Ativan to 1 mg every 4 hours as needed for agitation Clinical Quality Measures Admission Status Admission Dx 1. Sepsis suspected due to the slightly elevated lactic acid as well as his fever -Patient to be placed on IV ceftriaxone -He has blood cultures, sputum and urine cultures pending -Check CBC in the morning 2. Urinary tract infection -Urine culture pending 3. Hematuria and this may be due to the UTI versus previous trauma from him removing the Manzano while the bulb was inflated. -Manzano to be maintained in place for now 4. Dehydration -IV fluids at 125 mL per hour. -Recheck chemistries in the morning DVT/VTE Risk/Contraindication: Risk Factor Score Per Nursin RFS Level Per Nursing on Admit: 4+=Very High ISI SENA MD Aug 07, 2017 07:44
[2017-08-07] MEDS: DORZOLAMIDE/TIMOLOL (COSOPT) 2-0.68% 10 ML BTL OU SCH ×2 (08:29→20:08)
[2017-08-07] MEDS: FAMOTIDINE 20 MG (PEPCID) TABLET PEG SCH ×2 (08:36→20:08)
[2017-08-07] MEDS: LORazepam INJ 2 MG/ML (ATIVAN) VIAL IVP PRN ×3 (08:36→20:09)
[2017-08-07] MEDS: meTOprolol SUCCINATE 100 MG (TOPROL XL) TAB PO SCH (08:36)
[2017-08-07] MEDS: LEVOTHYROXINE 88 MCG (LEVOTHORID) TAB PEG SCH (08:36)
--- NOTE | 2017-08-07 10:39 | Speech Therapy Progress Note ---
Therapy Progress Note Speech pathology re-attempted swallowing evaluation on this date. The patient was sleeping with audible hypopharyngeal secretions at baseline. The patient was roused with moderate verbal prompting, however, quickly returned back to sleep. The patient was repositioned in attempts to improve alertness. The patient opened his eyes and stated his name for the clinician. The patient promptly re-closed his eyes and stated, "no" when asked if he could open his mouth. The patient additionally answered., "no" when offered sips of water. The patient did not respond to additional questions and remained asleep. Per patient 's sitter, the patient recently received Ativan for agitation. Speech pathology will re-attempt as the patient is appropriate. NAPOLEON SIMON Aug 07, 2017 10:39
[2017-08-07] MEDS: CEFEPIME 2 GM/NS 50 ML IVPB IV SCH ×2 (12:34)
--- NOTE | 2017-08-07 13:53 | Speech Therapy Daily Note ---
Speech Daily Progress Note Subjective Date Seen by Provider: Aug 07, 2017 Time Seen by Provider: 13:30 The patient was laying in bed, sleeping upon entrance. The patient remains confused (increased) and somewhat lethargic. A sitter remains at bedside. This is the clinician's second attempt on this date for a swallow evaluation. The patient refused trials initially, however, with maximum verbal cueing from the clinician and repositioning upright in bed, the patient opened his mouth for oral trials. Objective Thin Liquids: The patient appeared confused as how to use a spoon. The spoon was placed at his lips and he continued to bite at the utensil. To avoid dumping the contents into the patient's oral cavity, the spoon was placed on the lingual surface. The patient continued to bite at the spoon until the contents were removed. The patient elicited a somewhat timely swallow response, however, immediately began clearing his throat in correlation to the limited swallow. Following the swallow, the patient started yelling loudly, "No! No! No! " and swaying the clinician away. The patient refused all additional trials of thin liquid and attempted trials of puree. At this time, the patient's confusion, agitation, and lethargy will need to improve as they are large barriers towards completion of a swallow study. Assessment Assessment Current Status: Refused Treatment Treatment Plan Continue Plan of Care Speech Short Term Goals Short Term Goals Short Term Goals 1. The patient will tolerate 10/10 trials of puree consistencies without signs/ symptoms of aspiration. Time Frame-STG: One Week Speech Long-Term Goals Long-Term Goals 1. The patient will tolerate a diet of the least restrictive consistency without signs/symptoms of aspiration or laryngeal penetration. Time Frame: Two Weeks Speech-Plan Treatment Plan Speech Therapy Treatment Plan: Continue Plan of Care Continue skilled speech pathology to target swallowing safety. Treatment Duration: Aug 10, 2017 Frequency: 3 times per week Estimated Hrs Per Day: .25 hour per day Rehab Potential: Poor Safety Risks/Education Teaching Recipient: Patient Teaching Methods: Discussion Response to Teaching: Unable to Comprehend Education Topics Provided: Necessity of Swallow Evaluation Time Speech Therapy Time In: 13:30 Speech Therapy Time Out: 13:45 Total Billed Time: 15 Billed Treatment Time HIRAM Garcia ELIZABEVERENICE ROJO Aug 07, 2017 13:53
[2017-08-08] MEDS: LORazepam INJ 2 MG/ML (ATIVAN) VIAL IVP PRN ×2 (00:14→18:19)
[2017-08-08] MEDS: NS IV 1000 ML 1,000 ML IV SCH ×2 (03:12→18:32)
[2017-08-08] MEDS: HALOPERIDOL 5 MG/ML (HALDOL) AMP IM PRN (03:43)
[2017-08-08 04:11] VITALS: BP 144/80
--- NOTE | 2017-08-08 07:30 | Progress Note (SOAP) ---
Subjective Date Seen by Provider: Aug 08, 2017 Time Seen by Provider: 07:15 Subjective/Events-last exam Patient was resting comfortably upon rounds this morning. He appears to be answering questions appropriately. Objective Exam Vital Signs Date Time Temp Pulse Resp B/P (MAP) Pulse Ox O2 Delivery O2 Flow Rate FiO2 08/08/17 04:11 98.0 87 19 144/80 (101) 95 Room Air 08/08/17 01:00 81 08/07/17 23:16 97.9 88 20 140/72 (94) 97 Room Air 08/07/17 20:20 97.5 99 18 146/79 (101) 98 Room Air 08/07/17 20:09 Room Air 08/07/17 19:00 90 08/07/17 16:16 97.2 88 18 141/76 (97) 97 Room Air 08/07/17 13:00 85 08/07/17 12:08 85 08/07/17 12:00 97.6 80 20 146/80 (102) 98 Room Air 08/07/17 08:30 Room Air 08/07/17 07:50 98.0 92 18 170/86 (114) 96 Room Air I & O 08/08/17 07:00 Intake Total 3455 ml Output Total 3475 ml Balance -20 ml Capillary Refill : Less Than 3 Seconds General Appearance: No Apparent Distress Respiratory: Lungs Clear Cardiovascular: Irregularly Irregular Gastrointestinal: non tender Results Lab Microbiology 08/02/17 Blood Culture - Final, Complete No growth 08/02/17 Urine Culture - Final, Complete Pseudomonas aeruginosa Assessment/Plan Assessment/Plan Assess & Plan/Chief Complaint 1. Sepsis suspected due to the slightly elevated lactic acid as well as his fever -Patient to be placed on IV ceftriaxone -He has blood cultures, sputum and urine cultures pending -Check CBC in the morning 08/03 -Check cbc in the am. HG down today 08/04 -White blood cell count within normal range this morning. -Blood cultures have no growth 08/05: Blood ctx NGTD 08/06: blood ctx Neg, Continue antibiotics 08/07: He continues on cefepime and today is day number 4 -Discharge planning to via [facility] most likely tomorrow or on August 09 -Attempt was made to contact Marley, his daughter, but no answer 08/08 -day 5 cefepime -will switch to cipro on dismissal 2. Urinary tract infection -Urine culture pending 08/05: Pseudomonas, Sensitivities pending, continue current antibiotic 3. Hematuria and this may be due to the UTI versus previous trauma from him removing the Manzano while the bulb was inflated. -Manzano to be maintained in place for now 08/04 -Visualization of the urine grossly appears to be slowly clearing 08/06: Draining clear urine 4. Dehydration -IV fluids at 125 mL per hour. -Recheck chemistries in the morning 08/04 -Will switch patient over to complete PEG tube feedings as his infection clears. 08/07: Will decrease IV fluids today to 80 mL per hour. 5. Dysphagia -dysphagia evaluation today. 08/04 -Patient apparently did not pass his swallow study on August 03, 2017. -He still continues to have speech therapy 08/08 -failed swallow test yesterday -Check MRI of brain to check status of midbrain 6. Delirium 08/05: Started on Haldol today, likely 08/06: Improved today but still disoriented 08/07: Haldol available but will increase his Ativan to 1 mg every 4 hours as needed for agitation Clinical Quality Measures Admission Status Admission Dx 1. Sepsis suspected due to the slightly elevated lactic acid as well as his fever -Patient to be placed on IV ceftriaxone -He has blood cultures, sputum and urine cultures pending -Check CBC in the morning 2. Urinary tract infection -Urine culture pending 3. Hematuria and this may be due to the UTI versus previous trauma from him removing the Manzano while the bulb was inflated. -Manzano to be maintained in place for now 4. Dehydration -IV fluids at 125 mL per hour. -Recheck chemistries in the morning DVT/VTE Risk/Contraindication: Risk Factor Score Per Nursin RFS Level Per Nursing on Admit: 4+=Very High ISI SENA MD Aug 08, 2017 07:30
[2017-08-08] MEDS: LEVOTHYROXINE 88 MCG (LEVOTHORID) TAB PEG SCH (08:42)
[2017-08-08] MEDS: meTOprolol SUCCINATE 100 MG (TOPROL XL) TAB PO SCH (08:42)
[2017-08-08] MEDS: FAMOTIDINE 20 MG (PEPCID) TABLET PEG SCH ×2 (08:42→21:38)
--- NOTE | 2017-08-08 08:47 | Speech Therapy Daily Note ---
Speech Daily Progress Note Subjective Date Seen by Provider: Aug 08, 2017 Time Seen by Provider: 08:25 The patient was laying in bed, sleeping upon entrance. The patient has a sitter present, as well as, the RN who was preparing morning medication. The lights were adjusted to increase alertness and the patient was gentle roused with verbal prompting. The patient initially refused the re-evaluation of his swallowing function, holding his hand over his mouth. Per patient, "No, the doctor said no." The speech pathologist discussed her role and position in his care and the patient agreed to proceed. The patient does appear somewhat more appropriate on this date, answering questions more accurately. Per RN, the physician has ordered an MRI to further evaluate the patient's brain function and investigate for possible midbrain involvement. If the midbrain returns clear, a CT neck may be an additional option due to the significant extreme pharyngeal swelling visualized following the patient's surgery. Objective Oral Care: Oral care with moisture was provided to the patient prior to completing the swallow evaluation. The patient did attempt to intermittently manipulate the swab with his tongue throughout the cleaning. Thin Liquid (PO Trials): One half teaspoon of thin liquid was provided to the patient. The patient would not close his lips around the spoon. With maximum clinician verbal prompting, the patient closed his lips around the spoon to avoid "dumping" of the contents into his mouth. Immediate, rigorous coughing, red face, watery eyes, and a wet vocal quality was demonstrated. The patient immediately grew agitated and started yelling at the clinician to end the evaluation. The clinician visited with the patient to help calm him. Once calm, the clinician attempted to complete additional trials of thickened liquids and puree, however, the patient adamantly refused. The clinician will reattempt swallowing evaluation as able and the patient remains appropriate and participatory. Assessment Assessment Current Status: Poor Progress Treatment Plan Continue Plan of Care Speech Short Term Goals Short Term Goals Short Term Goals 1. The patient will tolerate 10/10 trials of puree consistencies without signs/ symptoms of aspiration. Time Frame-STG: One Week Speech Staff Certified Nurse Midwife Goals Care Home Goals 1. The patient will tolerate a diet of the least restrictive consistency without signs/symptoms of aspiration or laryngeal penetration. Time Frame: Two Weeks Speech-Plan Treatment Plan Speech Therapy Treatment Plan: Continue Plan of Care Continue skilled speech pathology to target improved swallowing safety. Treatment Duration: Aug 10, 2017 Frequency: 3 times per week Estimated Hrs Per Day: .25 hour per day Rehab Potential: Poor Safety Risks/Education Teaching Recipient: Patient Teaching Methods: Discussion Response to Teaching: Unable to Comprehend Education Topics Provided: Plan of Care, Rationale for Swallow Evaluation Time Speech Therapy Time In: 08:25 Speech Therapy Time Out: 08:45 Total Billed Time: 20 Billed Treatment Time 1, HIRAM NAPOLEON SIMON Aug 08, 2017 08:47
[2017-08-08] MEDS: DORZOLAMIDE/TIMOLOL (COSOPT) 2-0.68% 10 ML BTL OU SCH ×2 (08:50→21:38)
[2017-08-08 10:00] VITALS: BP 141/46
--- NOTE | 2017-08-08 11:26 | Diagnostic Imaging Report ---
PROCEDURE: MR imaging of the brain without contrast. TECHNIQUE: Multiplanar, multisequence MR imaging of the brain was performed without contrast. INDICATION: Difficulty swallowing after cervical fusion. FINDINGS: There is prominence of ventricles and sulci. There is abnormal signal intensity within the periventricular white matter and subcortical white matter bilaterally. There is no hydrocephalus. There is no midline shift. There is no intracranial mass, hemorrhage or extra axial fluid collection. There are no areas of diffusion restriction appreciated to suggest an acute CVA. Midline structures are unremarkable. The frontal, ethmoid, sphenoid and maxillary sinuses are clear. There is some minimal fluid in mastoid air cells. Globes and intraorbital structures are unremarkable. The central arterial and dural venous sinus flow voids are preserved. IMPRESSION: Atrophy and moderately severe chronic microvascular ischemic disease without evidence of diffusion restriction to suggest an acute CVA. Otherwise unremarkable MRI brain. Dictated by: Dictated on workstation # [id number]
[2017-08-08 13:11] VITALS: BP 153/94
[2017-08-08] MEDS: CEFEPIME 2 GM/NS 50 ML IVPB IV SCH ×2 (14:44)
[2017-08-08 16:02] VITALS: BP 165/97
[2017-08-08 20:01] VITALS: BP 167/56
[2017-08-08 23:29] VITALS: BP 158/66
[2017-08-09] MEDS: LORazepam INJ 2 MG/ML (ATIVAN) VIAL IVP PRN (02:34)
[2017-08-09 03:36] VITALS: BP 175/99
[2017-08-09 07:29] VITALS: BP 130/70
--- NOTE | 2017-08-09 07:41 | Progress Note (SOAP) ---
Subjective Date Seen by Provider: Aug 09, 2017 Time Seen by Provider: 07:20 Subjective/Events-last exam Did not pass swallow test yesterday. He doesn't admit to any pain. Objective Exam Vital Signs Date Time Temp Pulse Resp B/P (MAP) Pulse Ox O2 Delivery O2 Flow Rate FiO2 08/09/17 07:29 97.9 63 22 130/70 (90) 96 Room Air 08/09/17 03:36 98.1 96 18 175/99 (124) 93 Room Air 08/09/17 01:00 88 08/08/17 23:29 97.9 86 18 158/66 (96) 95 Room Air 08/08/17 20:30 Room Air 08/08/17 20:01 97.6 84 20 167/56 (93) 96 Room Air 08/08/17 19:00 91 08/08/17 16:02 96.8 87 18 165/97 (119) 96 Room Air 08/08/17 13:11 96.5 83 18 153/94 (113) 99 Room Air 08/08/17 13:00 89 08/08/17 10:00 95.1 55 18 141/46 (77) 95 Room Air 08/08/17 08:10 96 Room Air I & O 08/09/17 07:00 Intake Total 2180 ml Output Total 2550 ml Balance -370 ml Capillary Refill : Less Than 3 Seconds General Appearance: No Apparent Distress HEENT: Pharynx Normal (except for dry) Neck: Normal Inspection Respiratory: Lungs Clear Cardiovascular: Irregularly Irregular (with rate of 80) Gastrointestinal: soft Results Lab Microbiology 08/02/17 Blood Culture - Final, Complete No growth 08/02/17 Urine Culture - Final, Complete Pseudomonas aeruginosa Assessment/Plan Assessment/Plan Assess & Plan/Chief Complaint 1. Sepsis suspected due to the slightly elevated lactic acid as well as his fever -Patient to be placed on IV ceftriaxone -He has blood cultures, sputum and urine cultures pending -Check CBC in the morning 08/03 -Check cbc in the am. HG down today 08/04 -White blood cell count within normal range this morning. -Blood cultures have no growth 08/05: Blood ctx NGTD 08/06: blood ctx Neg, Continue antibiotics 08/07: He continues on cefepime and today is day number 4 -Discharge planning to via [place] [facility] most likely tomorrow or on August 09 -Attempt was made to contact Marley, his daughter, but no answer 08/08 -day 5 cefepime -will switch to cipro on dismissal 2. Urinary tract infection -Urine culture pending 08/05: Pseudomonas, Sensitivities pending, continue current antibiotic 3. Hematuria and this may be due to the UTI versus previous trauma from him removing the Manzaon while the bulb was inflated. -Manzano to be maintained in place for now 08/04 -Visualization of the urine grossly appears to be slowly clearing 08/06: Draining clear urine 4. Dehydration -IV fluids at 125 mL per hour. -Recheck chemistries in the morning 08/04 -Will switch patient over to complete PEG tube feedings as his infection clears. 08/07: Will decrease IV fluids today to 80 mL per hour. 08/09: DC IVFs and saline lock iv site 5. Dysphagia -dysphagia evaluation today. 08/04 -Patient apparently did not pass his swallow study on August 03, 2017. -He still continues to have speech therapy 08/08 -failed swallow test yesterday -Check MRI of brain to check status of midbrain 08/09 -MRI revealed no findings of stroke -consult ENT 6. Delirium 08/05: Started on Haldol today, likely 08/06: Improved today but still disoriented 08/07: Haldol available but will increase his Ativan to 1 mg every 4 hours as needed for agitation Clinical Quality Measures Admission Status Admission Dx 1. Sepsis suspected due to the slightly elevated lactic acid as well as his fever -Patient to be placed on IV ceftriaxone -He has blood cultures, sputum and urine cultures pending -Check CBC in the morning 2. Urinary tract infection -Urine culture pending 3. Hematuria and this may be due to the UTI versus previous trauma from him removing the Manzano while the bulb was inflated. -Manzano to be maintained in place for now 4. Dehydration -IV fluids at 125 mL per hour. -Recheck chemistries in the morning DVT/VTE Risk/Contraindication: Risk Factor Score Per Nursin RFS Level Per Nursing on Admit: 4+=Very High ISI SENA MD Aug 09, 2017 07:40
--- NOTE | 2017-08-09 09:04 | Speech Therapy Progress Note ---
Therapy Progress Note Speech pathology re-attempted a swallowing evaluation with the patient. Upon entrance, the patient was laying in bed with his gown around his stomach. The speech pathologist attempted to redress the patient, however, he began swatting at her and yelling "no!" With the gown draped over the patient, he was positioned upright in bed. The speech pathologist attempted to provide oral care and the patient yelled, "no, no, no, no, no." The rationale for the assessment was extensively provided and the speech pathologist attempted to provide ice chips and teaspoons of thin liquid. The patient continued to yell "no" at the clinician and swat his hands at her. At this time, the swallow evaluation attempt was terminated. The speech pathologist is agreeable to repeating a modified barium swallow, however, the patient must be appropriate and compliant. At this time, the patient will not complete a bedside evaluation, therefore, a modified barium swallow evaluation is inappropriate and not warranted. The patient's agitation, refusal, and behavior is limiting the clinician's ability to assess his swallow at this time. Speech pathology will continue to follow the patient throughout his admission. NAPOLEON SIMON Aug 09, 2017 09:04
[2017-08-09 11:46] VITALS: BP 171/88
[2017-08-09] MEDS: FAMOTIDINE 20 MG (PEPCID) TABLET PEG SCH ×2 (12:37→20:58)
[2017-08-09] MEDS: meTOprolol SUCCINATE 100 MG (TOPROL XL) TAB PO SCH (12:38)
[2017-08-09] MEDS: LEVOTHYROXINE 88 MCG (LEVOTHORID) TAB PEG SCH (12:38)
[2017-08-09] MEDS: CEFEPIME 2 GM/NS 50 ML IVPB IV SCH ×2 (12:42)
[2017-08-09] MEDS: DORZOLAMIDE/TIMOLOL (COSOPT) 2-0.68% 10 ML BTL OU SCH ×2 (12:44→20:58)
[2017-08-09 15:30] VITALS: BP 137/84
[2017-08-09 19:30] VITALS: BP 163/74
[2017-08-10] VITALS: BP 154/83
[2017-08-10 04:00] VITALS: BP 160/90
[2017-08-10] MEDS ORDERED: PHENYLEPHRINE 0.25% NASAL SPR (NEO-SYNEPHRINE) 15 ML NS PRN (06:00)
[2017-08-10] MEDS ORDERED: PHENYLEPHRINE 0.5% NASAL SPR (NEO-SYNEPHRINE) REG SCH (06:00)
[2017-08-10] MEDS ORDERED: LIDOCAINE TOPICAL 4% 50 ML BTL TP NR (06:00)
[2017-08-10] MEDS ORDERED: LIDOCAINE TOPICAL 4% 50 ML BTL TP ONE (06:00)
[2017-08-10] MEDS: LORazepam INJ 2 MG/ML (ATIVAN) VIAL IVP PRN (06:24)
--- NOTE | 2017-08-10 07:09 | Progress Note-Standard ---
Standard Progress Note Progress Notes/Assess & Plan Date Seen by Provider: Aug 10, 2017 Time Seen by Provider: 06:30 Progress/Assessment & Plan ENT-Rufino Patient seen and evaluated HIstory obtained from Dr Baldwin-significant swallowing problems after neck surgery PEG tube in place Patient unable to give any more history Exam Voice-strong this am NOse-septum relatively straight Oral Cavity-no tongue fascilations Larnyx-esxamined iwth scope Neck-no mass or adenopathy in neck Procedure-Fiberoptic Laryngoscopy-neosynephrine and 4% xylocaine to the left side of nose-patient also given his prn dose of ativan and given his ultram ON evaluation -nasoharynx wsa clear larynx-base of tongue clear/ supragottic structures normal Both vocal cord were mobile-good airway-they did meet in the midline MIld pooling of secretiosn seen in the left pyriform sinus IMP 1. Dysphagia 2. HIstory of Neck Surgery Rec: 1. On todyas exam he has a normal upper airway and his vocal cords are mobile- I would doubt all of his swalowing problems are due to his hardware. Suspect he may have had a neurologic event which is causing his dysphagia either from a CVA centrally or potentially a cord problem-He may need the PEG tube for quite some time. Max dominguez lt el lwhether his swallwoign issues will resolve or note. Happy to take another look down the road if there are any quesitons about his upper airway or swallowing-Thanks Final Diagnosis Dysphagia History of Neck Surgery AME ALVAREGNA MD Aug 10, 2017 7:09 am
--- NOTE | 2017-08-10 07:33 | Discharge Summary ---
Diagnosis/Chief Complaint Date of Admission August 02, 2017 at 13:30 Date of Discharge August 10, 2017 Discharge Date: Aug 10, 2017 Discharge Time: 07:30 Admission Diagnosis Admission Diagnosis 1. Sepsis suspected due to the slightly elevated lactic acid as well as his fever 2. Urinary tract infection 3. Hematuria and this may be due to the UTI versus previous trauma from him removing the Manzano while the bulb was inflated. 4. Dehydration Discharge Diagnosis 1. Sepsis 2. Urinary tract infection 3. Hematuria and this may be due to the UTI versus previous trauma from him removing the Manzano while the bulb was inflated. 4. Dehydration 5. Dysphagia 6. Delirium Reason Hospital Visit 81-year-old male who is currently a resident of [facility] is sent to emergency department this afternoon due to a low-grade fever as well as noting blood from his urine. He currently has a Manzano catheter in place and has had it in place over the past 5 days. He was recently in the hospital following cervical neck surgery and subsequently having issues with swallowing. Patient has been unable to swallow since the surgery and currently is in [facility] undergoing rehabilitation for his cervical neck as well as awaiting his swallow reflex to return. Today however his temperature was 100.6 at the assisted and in the emergency department was noted to be 101.8. He had been given Levaquin 500 mg via the PEG tube prior to arrival. Patient is a little bit agitated and confused. One month ago he was living at home and able to drive himself wherever he needed to go such as doctor visits or groceries. Discharge Summary Hospital Course Hospital Course 1. Sepsis suspected due to the slightly elevated lactic acid as well as his fever -Patient to be placed on IV ceftriaxone -He has blood cultures, sputum and urine cultures pending -Check CBC in the morning 08/03 -Check cbc in the am. HG down today 08/04 -White blood cell count within normal range this morning. -Blood cultures have no growth 08/05: Blood ctx NGTD 08/06: blood ctx Neg, Continue antibiotics 08/07: He continues on cefepime and today is day number 4 -Discharge planning to [facility] most likely tomorrow or on August 09 -Attempt was made to contact Marley, his daughter, but no answer 08/08 -day 5 cefepime -will switch to cipro on dismissal 2. Urinary tract infection--Pseudomonas -Urine culture pending 08/04: Pseudomonas, Sensitivities pending, continue current antibiotic -Rocephin was discontinued on August 04 and he is was switched to cefepime 08/10 -He will be switched to Levaquin upon dismissal for an additional 7 days. 3. Hematuria and this may be due to the UTI versus previous trauma from him removing the Manzano while the bulb was inflated. -Manzano to be maintained in place for now 08/04 -Visualization of the urine grossly appears to be slowly clearing 08/06: Draining clear urine 4. Dehydration -IV fluids at 125 mL per hour. -Recheck chemistries in the morning 08/04 -Will switch patient over to complete PEG tube feedings as his infection clears. 08/07: Will decrease IV fluids today to 80 mL per hour. 08/09: DC IVFs and saline lock iv site 08/10 -Upon release back to [facility] will ensure that he has additional fluids following Jevity. 5. Dysphagia -dysphagia evaluation today. 08/04 -Patient apparently did not pass his swallow study on August 03, 2017. -He still continues to have speech therapy 08/08 -failed swallow test yesterday -Check MRI of brain to check status of midbrain 08/09 -MRI revealed no findings of stroke -consult ENT 08/10 -Dr. Joy evaluated patient with fiberoptic laryngoscopy. Apparently he was noted to have vocal cords functioning. It was felt that his dysphagia may be a central event or potentially a cord event. -At this point will continue to have speech therapy worked with patient at [facility]. We'll continue his feedings with the PEG tube for now since he has not passed a modified barium swallow. 6. Delirium /2: Started on Haldol today, likely 08/06: Improved today but still disoriented 08/07: Haldol available but will increase his Ativan to 1 mg every 4 hours as needed for agitation Procedures None. Discharge Physical Examination Allergies: Coded Allergies: No Known Drug Allergies (Unverified , 10/25/12) Vitals & I&Os Vital Signs Date Time Temp Pulse Resp B/P (MAP) Pulse Ox O2 Delivery O2 Flow Rate FiO2 08/10/17 04:00 98.2 80 20 160/90 (113) 95 Room Air 08/06/17 12:00 2.00 General Appearance: No Acute Distress Respiratory: Clear to Auscultation Cardiovascular: Other (Irregular rhythm at the rate is controlled) Abdominal: Soft, Other (PEG tube in place) Skin: No Rashes Discharge Home Medications Reviewed and agree with Discharge Medication list on patient's Discharge Instruction sheet Instructions to Patient/Family Please see electronic discharge instructions given to patient. Clinical Quality Measures DVT/VTE Risk/Contraindication: Risk Factor Score Per Nursin RFS Level Per Nursing on Admit: 4+=Very High ISI SENA MD Aug 10, 2017 07:33
--- NOTE | 2017-08-10 07:38 | Discharge Inst-Skilled Nursing ---
Discharge Inst-Skilled NF Patient Instructions Patient Problems: Dysphagia, Pseudomonas urinary tract infection, status post cervical neck surgery Goal: Improve his ability to swallow. Clear urinary tract infection. Physical therapy and occupational therapy for muscle strengthening and mobility Consult/Follow Up/Orders Skilled NF Admit to: [facility] Certification ([facility]) I certify that SNF services are required to be given on an inpatient basis because of the above named patient's need for senior care care on a continuing basis for the conditions(s) for which he/she was receiving inpatient hospital services prior to his/her transfer to the SNF. [facility] Facility Order: Nursing Services, Machine Shop Specialist-Evaluate & Treat, Physical Therapy-Evaluate & Treat, Speech Language-Evaluate & Treat Discharge Diet: Other Diet (PEG tube feedings with Jevity 5 times daily) New & Resume Previous Orders Isi Sena Aug 10, 2017 07:36 ISI SENA MD Aug 10, 2017 07:38
[2017-08-10 08:00] VITALS: BP 105/54
--- NOTE | 2017-08-10 08:45 | Speech Therapy Progress Note ---
Therapy Progress Note Speech pathology reattempted swallowing treatment and evaluation on this date. Regardless of maximum clinician cueing (sternal rub, verbal prompting, placing room lights on), the patient did not demonstrate improved alertness or wakefulness. The clinician suspects the Ativan provided for the otolaryngology consult may be causing increased drowsiness. Speech pathology will reattempt evaluation as the patient is appropriate. NAPOLEON SIMON Aug 10, 2017 08:44
[2017-08-10] MEDS: DORZOLAMIDE/TIMOLOL (COSOPT) 2-0.68% 10 ML BTL OU SCH (09:07)
[2017-08-10] MEDS: FAMOTIDINE 20 MG (PEPCID) TABLET PEG SCH (09:07)
[2017-08-10] MEDS: meTOprolol SUCCINATE 100 MG (TOPROL XL) TAB PO SCH (09:07)
[2017-08-10] MEDS: LEVOTHYROXINE 88 MCG (LEVOTHORID) TAB PEG SCH (09:07)
[2017-08-10] MEDS ORDERED: SALIVA SUBSTITUTE 60 ML SPRAY(MOUTHKOTE) MM PRN (09:15)
[2017-08-10] MEDS ORDERED: SALIVA STIMULANT MOUTH SPRAY (BIOTENE) 1.5 OZ MM PRN (09:15)
[2017-08-10 12:00] VITALS: BP 160/72
[2017-08-10] MEDS: CEFEPIME 2 GM/NS 50 ML IVPB IV SCH ×2 (13:31)
[2017-08-10] MEDS: HALOPERIDOL 5 MG/ML (HALDOL) AMP IM PRN (15:32)
[2017-08-10 16:10] VITALS: BP 160/72
[2017-08-22] MEDS ORDERED: LORA1TAB PEG (09:06)
[2017-08-22] MEDS ORDERED: ZIPR20CA23 PO (12:49)
== END 2017-08-10 16:10 | DRG 698 ==
LOC: EDUNIT# 11:09 → ER 11:10 → 4TH 13:30
PROVIDERS: ADMIT Family Medicine; ATTEND Family Medicine
PROC: 0CJS8ZZ Inspection of Larynx, Via Natural or Artificial Opening Endoscopic (ICD-10-PCS; principal; 2017-08-10)
DX: T83.511A Infection and inflammatory reaction due to indwelling urethral catheter, initial encounter (principal); A41.9 Sepsis, unspecified organism; S37.39XA Other injury of urethra, initial encounter; N39.0 Urinary tract infection, site not specified; R31.9 Hematuria, unspecified; N28.9 Disorder of kidney and ureter, unspecified; R45.1 Restlessness and agitation; R13.10 Dysphagia, unspecified; E86.0 Dehydration; I25.10 Atherosclerotic heart disease of native coronary artery without angina pectoris; I10 Essential (primary) hypertension; E78.00 Pure hypercholesterolemia, unspecified; M19.91 Primary osteoarthritis, unspecified site; E03.9 Hypothyroidism, unspecified; H40.9 Unspecified glaucoma; Z93.1 Gastrostomy status; Z87.891 Personal history of nicotine dependence; Z94.7 Corneal transplant status; Z96.652 Presence of left artificial knee joint; Z95.5 Presence of coronary angioplasty implant and graft; X58.XXXA Exposure to other specified factors, initial encounter
CPT/HCPCS: 36415; 70551; 71045; 80048; 80053; 81000; 83605; 84439; 84443; 85007; 85025; 85027; 85610; 85730; 87040; 87077; 87088; 87186; 93005; 96361; 96365; 96375

== ENCOUNTER 2017-08-12 18:13 | Emergency (ER) | payer MEDICARE, OTHER ==
[~2017-08-12] VITALS: Ht 182.9 cm; Wt 81.4 kg
[~2017-08-12 18:13] MED LIST changes: +ACET325T38 PO; +DORZ10DR22 OU; +LACT-72 PEG; +LEVO500T2 PEG; +MAGN400O7 PEG; +MELA3TAB PO; +TRAM50TA2 PO
--- NOTE | 2017-08-12 18:19 | ED GI ---
General Stated Complaint: CONFUSION Source of Information: Patient, Family Exam Limitations: No Limitations History of Present Illness Date Seen by Provider: Aug 12, 2017 Time Seen by Provider: 18:16 Initial Comments To ER from [facility] with reports of pulling on his PEG tube. He was recently released from [facility] after being admitted with a urinary tract infection has been more confused since then. Ultimately he's been pulling at his PEG tube. He did not pull it all the way out but it seems to be out further than it was initially. Nurses are concerned. Timing/Duration: 1/2 Hour Severity/Quality: Moderate Radiation: No Radiation Activities at Onset: None Allergies and Home Medications Allergies Coded Allergies: No Known Drug Allergies (Unverified , 10/25/12) Home Medications Acetaminophen 325 Mg Tablet, 650 MG PO Q4H PRN for TEMPATURE OR MILD PAIN, ( Reported) Aspirin 81 Mg Tab.chew, 162 MG PEG DAILY, (Reported) TAKE 2 (81MG) TABS Dorzolamide HCl/Timolol Maleat 10 Ml Drops, 1 DROP OU BID, (Reported) Famotidine 20 Mg Tablet, 20 MG PEG BID, (Reported) Glycerin/Propylene Glycol 30 Ml Drops, 1 DROP OU QID PRN for DRY EYES, (Reported ) Lactose-Reduced Food/Fiber 237 Ml Liquid, 237 ML PEG 5XD, (Reported) Levofloxacin 500 Mg Tablet, 500 MG PEG DAILY, (Reported) 7 DAY THERAPY ORDER DATE 08-02-17 Levothyroxine Sodium 88 Mcg Tablet, 88 MCG PEG DAILY, (Reported) Loteprednol Etabonate 5 Gm Drops.gel, 1 DROP OD DAILY, (Reported) Magnesium Hydroxide 400 Mg/5 Ml Oral.susp, 30 ML PEG DAILY PRN for CONSTIPATION- 7TH LINE, (Reported) Melatonin 3 Mg Tablet, 3 MG PO HS, (Reported) Metoprolol Succinate 100 Mg Tab.er.24h, 100 MG PEG DAILY, (Reported) HOLD AND NOTIFY PHYSICIAN FOR SYSTOLIC LESS THAN 100 AND OR DIASTOLIC LESS THAN 60. HOLD AND NOTIFY PHYSICIAN FOR PULSE LESS THAN OR EQUAL TO 60 Tramadol HCl 50 Mg Tablet, 50 MG PO Q6H PRN for PAIN-MODERATE, (Reported) Patient Home Medication List Home Medication List Reviewed: Yes Review of Systems Constitutional: see HPI EENTM: No Symptoms Reported Respiratory: No Symptoms Reported Cardiovascular: No Symptoms Reported Gastrointestinal: See HPI Genitourinary: No Symptoms Reported Musculoskeletal: no symptoms reported Skin: no symptoms reported Psychiatric/Neurological: No Symptoms Reported Endocrine: No Symptoms Reported Hematologic/Lymphatic: No Symptoms Reported Past Pqzqyqp-Yxhmki-Ewcrso Hx Patient Social History Type Used: Cigarettes Former Smoker, Quit: Mar 11, 1989 Recent Hopitalizations: No Immunizations Up To Date Date of Pneumonia Vaccine: Nov 12, 2015 Date of Influenza Vaccine: Dec 06, 2015 Seasonal Allergies Seasonal Allergies: No Past Medical History Surgeries: Yes (CORNEA TRANSPLANT, MASTOIDECTOMY, eyelid reduction, L TKR, neck , PEG tube) Gallbladder, Joint Replacement, Orthopedic Respiratory: No Cardiac: Yes (STENTS X2-LAST ONE COUPLE YEARS AGO) Coronary Artery Disease, High Cholesterol, Hypertension Neurological: Yes (dysphagia) Reproductive Disorders: No Sexually Transmitted Disease: No HIV/AIDS: No Genitourinary: Yes (joe cath since having sx on cervical spin for stenosis) Gastrointestinal: Yes (peg tube placement since having sx on cervical spine for stenosis) Chronic Constipation Musculoskeletal: Yes (spinal stenosis, ) Arthritis, Chronic Back Pain Endocrine: No Hypothyroidsim HEENT: Yes Glaucoma Loss of Vision: Bilateral Hearing Impairment: Denies Cancer: No Psychosocial: No Integumentary: No Blood Disorders: No Adverse Reaction/Blood Tranf: No Family Medical History LUNG CANCER G8 BROTHER Myocardial infarction 19 MOTHER Physical Exam Vital Signs Vital Signs - First Documented 08/12/17 18:13 Temp 97.6 Pulse 100 Resp 18 B/P (MAP) 116/78 (91) Pulse Ox 98 Capillary Refill : General Appearance: WD/WN, no apparent distress HEENT: PERRL/EOMI, normal ENT inspection Neck: non-tender, full range of motion Respiratory: normal breath sounds, no respiratory distress, no accessory muscle use Cardiovascular: regular rate, rhythm, no murmur Gastrointestinal: normal bowel sounds, non tender, soft, other (the PEG tube remains within the stoma, the bulbar remains inflated and I'm unable to remove it. The stopper on the exterior surface of the stoma has been pulled out distally but the PEG tube itself does not seem to be displaced. I'm able to aspirate about 10 mL of apparent gastric contents, clear mucousy material with food debris. ) Extremities: normal range of motion, non-tender Neurologic/Psychiatric: alert, disoriented x 3 Skin: normal color, warm/dry Progress/Results/Core Measures Results/Orders Vital Signs/I&O 08/12/17 18:13 Temp 97.6 Pulse 100 Resp 18 B/P (MAP) 116/78 (91) Pulse Ox 98 Departure Impression Primary Impression: PEG tube assessment Disposition: 01 HOME, SELF-CARE Condition: Stable Departure-Patient Inst. Decision time for Depature: 18:18 Referrals: ISI SENA MD (PCP/Family) Primary Care Physician Patient Instructions: NO INSTRUCTIONS GIVEN REJI HAGER NAILHEAD PUNCHER Aug 12, 2017 18:19
[2017-08-12 18:23] VITALS: BP 116/78
[2017-08-22] MEDS ORDERED: LORA1TAB PEG (09:06)
[2017-08-22] MEDS ORDERED: ZIPR20CA23 PO (12:49)
== END 2017-08-12 18:23 | disposition home or self-care (01) ==
LOC: EDUNIT# 18:13 → ER 18:14
DX: T85.528A Displacement of other gastrointestinal prosthetic devices, implants and grafts, initial encounter (principal); I25.10 Atherosclerotic heart disease of native coronary artery without angina pectoris; E78.00 Pure hypercholesterolemia, unspecified; I10 Essential (primary) hypertension; M48.02 Spinal stenosis, cervical region; E03.9 Hypothyroidism, unspecified; Z79.82 Long term (current) use of aspirin
CPT/HCPCS: 99283

== ENCOUNTER 2017-08-14 21:29 | Observation (INO) | payer MEDICARE, OTHER ==
[~2017-08-14] VITALS: Ht 182.9 cm; Wt 81.6 kg
[2017-08-14] MEDS ORDERED: LACTATED RINGERS 1,000 ML IV ONE (21:37)
--- OUTSIDE RECORDS SUMMARY | 2017-08-14 21:37 | XMS REPORT | Continuity of Care Document ---
Author Author [facility] Organization [facility] Address Unknown Phone Unavailable Allergies Active Description Code Type Severity Reaction Onset Reported/Identified Relationship to Patient Clinical Status Yes No Known Drug Allergies [id number] Drug Allergy Unknown N/A 10/25/2012 Medications There [...] FACP CCDS Ot 414.01 CORONARY ATHEROSCLEROSIS OF [place] CORON 05/01/2013 KEZIA MORALES MD, FACC FACP [...] FACP CCDS Ot 414.01 CORONARY ATHEROSCLEROSIS OF [place] CORON 06/19/2013 ANDREW ASTORGA FACC ALI FACP CCDS Ot 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 [place]CIF[place] 06/19/2013 ANDREW FERREIRA, KEZIA FERREIRAP CCDS Ot 426.4 RT BUNDLE BRANCH BLOCK 06/19/2013 ANDREW ASTORGA FACC, KEZIA FACP CCDS Ot 585.3 CHRONIC KIDNEY DISEASE, STAGE III (MODER 06/19/2013 ANDERW ASTORGA FACC, KEZIA FACP CCDS Ot 786.59 CHEST PAIN NEC 06/19/2013 ANDREW ASTORGA FACC, [facility]ZIA [facility] CCD[facility] Ot V15.82 HISTORY OF TOBACCO USE 06/19/2013 ANDREW ASTORGA FACC, KEZIA FACP CCDS Ot V45.82 PERCUTANEOUS TRANSLUM CORON ANGIOPLASTY 06/19/2013 ANDREW ASTORGA FACC, KEZIA FACP CCDS Ot V58.63 LONG-TERM(CURRENT)USE OF ANTIPLATELET/AN 06/19/2013 ANDREW ASTORGA FACC, KEZIA [facility] CCDS Ot V58.69 OTH MED,LT,CURRENT USE [...] OTHER SPECIFIED SURGICAL A 10/19/2015 CHANCE CARRENO DATA WAREHOUSE ADMINISTRATOR Ot E78.4 OTHER HYPERLIPIDEMIA 10/19/2015 CHANCE CARRENO DATA WAREHOUSE ADMINISTRATOR Ot I10 ESSENTIAL (PRIMARY) HYPERTENSION 10/19/2015 CHANCE CARRENO DATA WAREHOUSE ADMINISTRATOR Ot I25.10 ATHSCL HEART DISEASE OF [place] CORONARY 10/19/2015 CHANCE CARRENO DATA WAREHOUSE ADMINISTRATOR Ot I65.23 OCCLUSION AND STENOSIS OF BILATERAL [...] SPECIFIED SURGICAL A 10/19/2015 BAIMA, CHANCE L DATA WAREHOUSE ADMINISTRATOR Ot E78.4 OTHER HYPERLIPIDEMIA 10/19/2015 BAIMA, CHANCE L DATA WAREHOUSE ADMINISTRATOR Ot I10 ESSENTIAL (PRIMARY) HYPERTENSION 10/19/2015 FLAKOMA, CHANCE L DATA WAREHOUSE ADMINISTRATOR Ot I25.10 ATHSCL HEART DISEASE OF [place] CORONARY 10/19/2015 BAIMA, CHANCE L DATA WAREHOUSE ADMINISTRATOR Ot 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 10/19/2015 BAIMA, CHANCE L DATA WAREHOUSE ADMINISTRATOR Ot I25.10 ATHSCL HEART DISEASE OF [place] CORONARY 10/19/2015 BAIMA, CHANCE L DATA WAREHOUSE ADMINISTRATOR Ot E78.4 OTHER HYPERLIPIDEMIA 10/19/2015 BAIMA, CHANCE L DATA WAREHOUSE ADMINISTRATOR Ot I10 ESSENTIAL (PRIMARY) HYPERTENSION 10/19/2015 BAIMA, CHANCE L DATA WAREHOUSE ADMINISTRATOR Ot I25.10 ATHSCL HEART DISEASE OF [place] CORONARY 10/19/2015 BAIMA, CHANCE L DATA WAREHOUSE ADMINISTRATOR Ot 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 10/20/2015 BAIMA, CHANCE L DATA WAREHOUSE ADMINISTRATOR Ot I25.10 ATHSCL HEART DISEASE OF [place] CORONARY 10/21/2015 BAIMA, CHANCE L DATA WAREHOUSE ADMINISTRATOR Ot E78.4 OTHER HYPERLIPIDEMIA 10/21/2015 BAIMA, CHANCE L DATA WAREHOUSE ADMINISTRATOR Ot I10 ESSENTIAL (PRIMARY) HYPERTENSION 10/21/2015 BAIMA, CHANCE L DATA WAREHOUSE ADMINISTRATOR Ot I25.10 ATHSCL HEART DISEASE OF [place] CORONARY 10/21/2015 BAIMA, CHANCE L DATA WAREHOUSE ADMINISTRATOR Ot 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 10/23/2015 WAICHANCE Mary DATA WAREHOUSE ADMINISTRATOR Ot E78.4 OTHER HYPERLIPIDEMIA 10/23/2015 FLAKOMA CHANCE L DATA WAREHOUSE ADMINISTRATOR Ot I10 ESSENTIAL (PRIMARY) HYPERTENSION 10/23/2015 WAI CHANCE L DATA WAREHOUSE ADMINISTRATOR Ot I25.10 ATHSCL HEART DISEASE OF [place] CORONARY 10/23/2015 CHANCE CARRENO DATA WAREHOUSE ADMINISTRATOR Ot I65.23 OCCLUSION AND STENOSIS OF BILATERAL [...] OTHER SPECIFIED SURGICAL A 10/27/2015 CHANCE CARRENO DATA WAREHOUSE ADMINISTRATOR Ot E78.4 OTHER HYPERLIPIDEMIA 10/27/2015 WAICHANCE Mary DATA WAREHOUSE ADMINISTRATOR Ot I10 ESSENTIAL (PRIMARY) HYPERTENSION 10/27/2015 CHANCE CARRENO DATA WAREHOUSE ADMINISTRATOR Ot I25.10 ATHSCL HEART DISEASE OF [place] CORONARY 10/27/2015 CHANCE CARRENO DATA WAREHOUSE ADMINISTRATOR Ot 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 10/27/2015 FLAKOCHANCE FUNG DATA WAREHOUSE ADMINISTRATOR Ot E78.4 OTHER HYPERLIPIDEMIA 10/27/2015 BAIMACHANCE L DATA WAREHOUSE ADMINISTRATOR Ot I10 ESSENTIAL (PRIMARY) HYPERTENSION 10/27/2015 CHANCE CARRENO L DATA WAREHOUSE ADMINISTRATOR Ot I25.10 ATHSCL HEART DISEASE OF [place] CORONARY 10/27/2015 CHANCE CARRENO DATA WAREHOUSE ADMINISTRATOR Ot I65.23 OCCLUSION AND STENOSIS OF BILATERAL [...] SPECIFIED SURGICAL A 10/27/2015 WAI CHANCE Mary DATA WAREHOUSE ADMINISTRATOR Ot E78.4 OTHER HYPERLIPIDEMIA 10/27/2015 WAICHANCE L DATA WAREHOUSE ADMINISTRATOR Ot I10 ESSENTIAL (PRIMARY) HYPERTENSION 10/27/2015 WAI CHANCE L DATA WAREHOUSE ADMINISTRATOR Ot I25.10 ATHSCL HEART DISEASE OF [place] CORONARY 10/27/2015 BAIMACHANCE L DATA WAREHOUSE ADMINISTRATOR Ot 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 10/27/2015 BAIMA, CHANCE L DATA WAREHOUSE ADMINISTRATOR Ot E78.4 OTHER HYPERLIPIDEMIA 10/27/2015 BAIMA, CHANCE L DATA WAREHOUSE ADMINISTRATOR Ot I10 ESSENTIAL (PRIMARY) HYPERTENSION 10/27/2015 BAIMA, CHANCE L DATA WAREHOUSE ADMINISTRATOR Ot I25.10 ATHSCL HEART DISEASE OF [place] CORONARY 10/27/2015 BAIMA CHANCE L DATA WAREHOUSE ADMINISTRATOR Ot 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 11/06/2015 BAIMACHANCE L DATA WAREHOUSE ADMINISTRATOR Ot E78.4 OTHER HYPERLIPIDEMIA 11/06/2015 BAIMA, CHANCE L DATA WAREHOUSE ADMINISTRATOR Ot I10 ESSENTIAL (PRIMARY) HYPERTENSION 11/06/2015 BAIMA, CHANCE L DATA WAREHOUSE ADMINISTRATOR Ot I25.10 ATHSCL HEART DISEASE OF [place] CORONARY 11/06/2015 BAIMA CHANCE L DATA WAREHOUSE ADMINISTRATOR Ot 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 11/13/2015 BAIMA CHANCE L DATA WAREHOUSE ADMINISTRATOR Ot E78.4 OTHER HYPERLIPIDEMIA 11/13/2015 BAIMA, CHANCE L DATA WAREHOUSE ADMINISTRATOR Ot I10 ESSENTIAL (PRIMARY) HYPERTENSION 11/13/2015 BAIMA, CHANCE L DATA WAREHOUSE ADMINISTRATOR Ot I25.10 ATHSCL HEART DISEASE OF [place] CORONARY 11/13/2015 BAIMAYARIELCHANCE L DATA WAREHOUSE ADMINISTRATOR Ot I65.23 OCCLUSION AND STENOSIS OF BILATERAL [...] SPECIFIED SURGICAL A 11/19/2015 BAIMA, CHANCE L DATA WAREHOUSE ADMINISTRATOR Ot E78.4 OTHER HYPERLIPIDEMIA 11/19/2015 BAIMA, CHANCE L DATA WAREHOUSE ADMINISTRATOR Ot I10 ESSENTIAL (PRIMARY) HYPERTENSION 11/19/2015 BAIMA, CHANCE L DATA WAREHOUSE ADMINISTRATOR Ot I25.10 ATHSCL HEART DISEASE OF [place] CORONARY 11/19/2015 BAIMA, CHANCE L DATA WAREHOUSE ADMINISTRATOR Ot 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 11/19/2015 BAIMA, CHANCE L DATA WAREHOUSE ADMINISTRATOR Ot E78.4 OTHER HYPERLIPIDEMIA 11/19/2015 BAIMA, CHANCE L DATA WAREHOUSE ADMINISTRATOR Ot I10 ESSENTIAL (PRIMARY) HYPERTENSION 11/19/2015 BAIMA, CHANCE L DATA WAREHOUSE ADMINISTRATOR Ot I25.10 ATHSCL HEART DISEASE OF [place] CORONARY 11/19/2015 BAIMA, CHANCE L DATA WAREHOUSE ADMINISTRATOR Ot 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 11/20/2015 BAIMA, CHANCE L DATA WAREHOUSE ADMINISTRATOR Ot E78.4 OTHER HYPERLIPIDEMIA 11/20/2015 BAIMA, CHANCE L DATA WAREHOUSE ADMINISTRATOR Ot I10 ESSENTIAL (PRIMARY) HYPERTENSION 11/20/2015 BAIMA, CHANCE L DATA WAREHOUSE ADMINISTRATOR Ot I25.10 ATHSCL HEART DISEASE OF [place] CORONARY 11/20/2015 BAIMA, CHANCE L DATA WAREHOUSE ADMINISTRATOR Ot 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 11/23/2015 BAIMA, CHANCE L DATA WAREHOUSE ADMINISTRATOR Ot E78.4 OTHER HYPERLIPIDEMIA 11/23/2015 BAIMA, CHANCE L DATA WAREHOUSE ADMINISTRATOR Ot I10 ESSENTIAL (PRIMARY) HYPERTENSION 11/23/2015 BAIMA, CHANCE L DATA WAREHOUSE ADMINISTRATOR Ot I25.10 ATHSCL HEART DISEASE OF [place] CORONARY 11/23/2015 BAIMA, CHANCE L DATA WAREHOUSE ADMINISTRATOR Ot 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 12/11/2015 FLAKOCHANCE FUNG DATA WAREHOUSE ADMINISTRATOR Ot E78.4 OTHER HYPERLIPIDEMIA 12/11/2015 CHANCE CARRENO DATA WAREHOUSE ADMINISTRATOR Ot I10 ESSENTIAL (PRIMARY) HYPERTENSION 12/11/2015 CHANCE CARRENO DATA WAREHOUSE ADMINISTRATOR Ot I25.10 ATHSCL HEART DISEASE OF [place] CORONARY 12/11/2015 CHANCE CARRENO DATA WAREHOUSE ADMINISTRATOR Ot I65.23 OCCLUSION AND STENOSIS OF BILATERAL [...] OTHER SPECIFIED SURGICAL A 03/15/2016 CHANCE CARRENO DATA WAREHOUSE ADMINISTRATOR Ot E78.4 OTHER HYPERLIPIDEMIA 03/15/2016 BAIMA, CHANCE L DATA WAREHOUSE ADMINISTRATOR Ot I10 ESSENTIAL (PRIMARY) HYPERTENSION 03/15/2016 BAIMA, CHANCE L DATA WAREHOUSE ADMINISTRATOR Ot I25.10 ATHSCL HEART DISEASE OF [place] CORONARY 03/15/2016 BAIMA, CHANCE L DATA WAREHOUSE ADMINISTRATOR Ot 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 03/15/2016 BAIMA, CHANCE L DATA WAREHOUSE ADMINISTRATOR Ot E78.4 OTHER HYPERLIPIDEMIA 03/15/2016 BAIMA, CHANCE L DATA WAREHOUSE ADMINISTRATOR Ot I10 ESSENTIAL (PRIMARY) HYPERTENSION 03/15/2016 BAIMA, CHANCE L DATA WAREHOUSE ADMINISTRATOR Ot I25.10 ATHSCL HEART DISEASE OF [place] CORONARY 03/15/2016 BAIMA, CHANCE L DATA WAREHOUSE ADMINISTRATOR Ot 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 03/15/2016 BAIMA, CHANCE L DATA WAREHOUSE ADMINISTRATOR Ot E78.4 OTHER HYPERLIPIDEMIA 03/15/2016 BAIMA, CHANCE L DATA WAREHOUSE ADMINISTRATOR Ot I10 ESSENTIAL (PRIMARY) HYPERTENSION 03/15/2016 BAIMA, CHANCE L DATA WAREHOUSE ADMINISTRATOR Ot I25.10 ATHSCL HEART DISEASE OF [place] CORONARY 03/15/2016 BAIMA, CHANCE L DATA WAREHOUSE ADMINISTRATOR Ot 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 03/15/2016 MAGDIEL MARTINEZ MD Ot K44.9 DIAPHRAGMATIC HERNIA WITHOUT OBSTRUCTION 03/15/2016 MICHELLE ASTORGA, MAGDIEL Berger Ot K92.1 MELENA 03/15/2016 MAGDIEL MARTINEZ MD Ot 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 03/15/2016 MAGDIEL MARTINEZ MD Ot Z79.82 CUSTODIAL (CURRENT) USE OF ASPIRIN 03/17/2016 MAGDIEL MARTINEZ MD Ot K44.9 DIAPHRAGMATIC HERNIA WITHOUT OBSTRUCTION 03/17/2016 MAGDIEL MARTINEZ MD Ot K92.1 MELENA 03/17/2016 MAGDIEL MARTINEZ MD Ot 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 03/17/2016 MAGDIEL MARTINEZ MD Ot Z79.82 CUSTODIAL (CURRENT) USE OF ASPIRIN 08/02/2016 ANDREW ASTORGA [...] SPECIFIED SURGICAL A 08/02/2016 BAIMA, CHANCE L DATA WAREHOUSE ADMINISTRATOR Ot E78.4 OTHER HYPERLIPIDEMIA 08/02/2016 BAIMA, CHANCE L DATA WAREHOUSE ADMINISTRATOR Ot I10 ESSENTIAL (PRIMARY) HYPERTENSION 08/02/2016 BAIMA, CHANEC L DATA WAREHOUSE ADMINISTRATOR Ot I25.10 ATHSCL HEART DISEASE OF [place] CORONARY 08/02/2016 BAIMA, CHANCE L DATA WAREHOUSE ADMINISTRATOR Ot 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 08/02/2016 BAIMA, CHANCE L DATA WAREHOUSE ADMINISTRATOR Ot E78.4 OTHER HYPERLIPIDEMIA 08/02/2016 BAIMA, CHANCE L DATA WAREHOUSE ADMINISTRATOR Ot I10 ESSENTIAL (PRIMARY) HYPERTENSION 08/02/2016 BAIMA, CHANCE L DATA WAREHOUSE ADMINISTRATOR Ot I25.10 ATHSCL HEART DISEASE OF [place] CORONARY 08/02/2016 BAIMA, CHANCE L DATA WAREHOUSE ADMINISTRATOR Ot 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 08/02/2016 BAIMA, CHANCE L DATA WAREHOUSE ADMINISTRATOR Ot E78.4 OTHER HYPERLIPIDEMIA 08/02/2016 BAIMA, CHANCE L DATA WAREHOUSE ADMINISTRATOR Ot I10 ESSENTIAL (PRIMARY) HYPERTENSION 08/02/2016 BAIMA, CHANCE L DATA WAREHOUSE ADMINISTRATOR Ot I25.10 ATHSCL HEART DISEASE OF [place] CORONARY 08/02/2016 WAI CHANCE L DATA WAREHOUSE ADMINISTRATOR Ot I65.23 OCCLUSION AND STENOSIS OF BILATERAL [...] CCDS Ot I25.10 ATHSCL HEART DISEASE OF [place] CORONARY 12/14/2016 ANDREW ASTORGA FACC, KEZIA FACP CCDS Ot E78.4 OTHER HYPERLIPIDEMIA 12/14/2016 ANDREW ASTORGA FACC, ALI FACP CCDS Ot I12.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 12/14/2016 ANDREW ASTORGA FACC, ALI FACP CCDS Ot I25.10 ATHSCL HEART DISEASE OF [place] CORONARY 12/14/2016 ANDREW ASTORGA FACC, KEZIA FACP [...] CCDS Ot I25.10 ATHSCL HEART DISEASE OF [place] CORONARY 01/03/2017 ANDREW ASTORGA FACC, ALI FACP CCDS Ot 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 01/03/2017 ANDREW ASTORGA FACC, ALI FACP CCDS Ot N18.3 CHRONIC KIDNEY DISEASE, STAGE 3 (MODERAT 01/10/2017 ANDREW ASTORGA FACC, ALI FACP CCDS Ot E78.4 OTHER HYPERLIPIDEMIA 01/10/2017 ANDREW ASTORGA FACC, ALI FACP CCDS Ot I12.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 01/10/2017 ANDERW ASTORGA FACC, ALI FACP CCDS Ot I25.10 ATHSCL HEART DISEASE OF [place] CORONARY 01/10/2017 ANDREW ASTORGA FACC, ALI FACP [...] CCDS Ot I25.10 ATHSCL HEART DISEASE OF [place] CORONARY 06/21/2017 ANDREW ASTORGA FACC, ALI FACP [...] CCDS Ot I25.10 ATHSCL HEART DISEASE OF [place] CORONARY 07/04/2017 ANDREW ASTORGA FACC, ALI FACP [...] CCDS Ot I25.10 ATHSCL HEART DISEASE OF [place] CORONARY 07/10/2017 ANDREW ASTORGA FACC, ALI FACP [...] MD Ot I25.10 ATHSCL HEART DISEASE OF [place] CORONARY 07/14/2017 AMA MOON MD Ot M19.91 [...] MD Ot I25.10 ATHSCL HEART DISEASE OF [place] CORONARY 07/17/2017 AMA MOON MD Ot M19.91 [...] MD Ot I25.10 ATHSCL HEART DISEASE OF [place] CORONARY 07/17/2017 AMA MOON MD Ot M19.91 [...] MD, Ot I25.10 ATHSCL HEART DISEASE OF [place] CORONARY 07/17/2017 AMA MOON MD Ot M19.91 [...] MD Ot I25.10 ATHSCL HEART DISEASE OF [place] CORONARY 07/18/2017 AMA MOON MD Ot M19.91 PRIMARY OSTEOARTHRITIS, UNSPECIFIED SITE 07/18/2017 AMA MOON MD Ot M47.12 OTHER SPONDYLOSIS WITH MYELOPATHY, CERVI 07/18/2017 AMA MOON MD Ot M47.22 OTHER SPONDYLOSIS WITH RADICULOPATHY, CE 07/18/2017 AMA MONO MD, Ot M48.02 SPINAL STENOSIS, CERVICAL REGION [...] MD Ot I25.10 ATHSCL HEART DISEASE OF [place] CORONARY 07/18/2017 AMA MOON MD Ot J39.2 [...] MOON MD, Ot R31.9 HEMATURIA, UNSPECIFIED 07/18/2017 AMA MOON MD, Ot R33.8 OTHER RETENTION OF [...] R53.83 OTHER FATIGUE 07/19/2017 RAIN ASTORGA, AME Herbert Ot Z01.810 ENCOUNTER FOR PREPROCEDURAL CARDIOVASCUL 07/19/2017 [...] SPECIFIED SURGICAL A 07/19/2017 BAIMA, CHANCE L DATA WAREHOUSE ADMINISTRATOR Ot E78.4 OTHER HYPERLIPIDEMIA 07/19/2017 BAIMA, CHANCE L DATA WAREHOUSE ADMINISTRATOR Ot I10 ESSENTIAL (PRIMARY) HYPERTENSION 07/19/2017 BAIMA, CHANCE L DATA WAREHOUSE ADMINISTRATOR Ot I25.10 ATHSCL HEART DISEASE OF [place] CORONARY 07/19/2017 BAIMA, CHANCE L DATA WAREHOUSE ADMINISTRATOR Ot 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 07/19/2017 BAIMA, CHANCE L DATA WAREHOUSE ADMINISTRATOR Ot E78.4 OTHER HYPERLIPIDEMIA 07/19/2017 BAIMA, CHANCE L DATA WAREHOUSE ADMINISTRATOR Ot I10 ESSENTIAL (PRIMARY) HYPERTENSION 07/19/2017 BAIMA, CHANCE L DATA WAREHOUSE ADMINISTRATOR Ot I25.10 ATHSCL HEART DISEASE OF [place] CORONARY 07/19/2017 BAIMA, CHANCE L DATA WAREHOUSE ADMINISTRATOR Ot 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 07/19/2017 BAIMA, CHANCE L DATA WAREHOUSE ADMINISTRATOR Ot E78.4 OTHER HYPERLIPIDEMIA 07/19/2017 BAIMA, CHANCE L DATA WAREHOUSE ADMINISTRATOR Ot I10 ESSENTIAL (PRIMARY) HYPERTENSION 07/19/2017 BAIMA, CHANCE L DATA WAREHOUSE ADMINISTRATOR Ot I25.10 ATHSCL HEART DISEASE OF [place] CORONARY 07/19/2017 BAIMA, CHANCE L DATA WAREHOUSE ADMINISTRATOR Ot 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 07/19/2017 YENY FIELD DO Ot M48.02 SPINAL STENOSIS, CERVICAL REGION 07/19/2017 YENY FIELD DO Ot M50.20 OTHER CERVICAL DISC DISPLACEMENT, UNSP C 07/19/2017 YENY FIELD DO Ot M54.6 PAIN IN THORACIC SPINE 07/19/2017 ANDREW ASTORGA FACC, KEZIA FERREIRAP CCDS Ot E78.4 OTHER HYPERLIPIDEMIA 07/19/2017 ANDREW ASTORGA FACC, KEZIA FACP CCDS Ot I12.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 07/19/2017 ANDREW ASTORGA FACC, KEZIA FACP CCDS Ot I25.10 ATHSCL HEART DISEASE OF [place] CORONARY 07/19/2017 ANDREW ASTORGA FACC, ALI FACP CCDS Ot 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 07/19/2017 ANDREW ASTORGA FACC, KEZIA FACP CCDS Ot N18.3 CHRONIC KIDNEY DISEASE, STAGE 3 (MODERAT 07/24/2017 REJI HAGER APRN Ot E03.9 HYPOTHYROIDISM, UNSPECIFIED 07/24/2017 REJI HAGER APRN Ot I10 ESSENTIAL (PRIMARY) HYPERTENSION 07/24/2017 REJI HAGER APRN Ot 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 07/24/2017 REJI HAGER APRN Ot Z79.82 CUSTODIAL (CURRENT) USE OF ASPIRIN 07/24/2017 REJI HAGER [...] REJI HAGER APRN Ot Z98.1 ARTHRODESIS STATUS 08/04/2017 ISI SENA MD Ot A41.9 SEPSIS, UNSPECIFIED ORGANISM 08/04/2017 ISI SENA MD Ot E03.9 HYPOTHYROIDISM, UNSPECIFIED 08/04/2017 ISI SENA MD Ot E78.00 PURE HYPERCHOLESTEROLEMIA, UNSPECIFIED 08/04/2017 ISI SENA MD Ot E86.0 DEHYDRATION 08/04/2017 JAIDAISI ANTHONY MD, Ot H40.9 UNSPECIFIED GLAUCOMA 08/04/2017 ISI SENA MD, Ot I10 ESSENTIAL (PRIMARY) HYPERTENSION 08/04/2017 ISI SENA MD, Ot I25.10 ATHSCL HEART DISEASE OF [place] CORONARY 08/04/2017 ISI SENA MD, Ot M19.91 PRIMARY OSTEOARTHRITIS, UNSPECIFIED SITE 08/04/2017 ISI SENA MD, Ot N28.9 DISORDER OF KIDNEY AND URETER, UNSPECIFI 08/04/2017 ISI SENA MD, Ot N39.0 URINARY TRACT INFECTION, SITE NOT SPECIF 08/04/2017 ISI SENA MD, Ot R13.10 DYSPHAGIA, UNSPECIFIED 08/04/2017 ISI SENA MD, Ot R31.9 HEMATURIA, UNSPECIFIED 08/04/2017 ISI SENA MD, Ot R45.1 RESTLESSNESS AND AGITATION 08/04/2017 ISI SENA MD, Ot S37.30XA UNSPECIFIED INJURY OF URETHRA, INITIAL E 08/04/2017 ISI SENA MD, Ot X58.XXXA EXPOSURE TO OTHER SPECIFIED FACTORS, INI 08/04/2017 ISI SENA MD, Ot Z87.891 PERSONAL HISTORY OF NICOTINE DEPENDENCE 08/04/2017 ISI SENA MD, Ot Z93.1 GASTROSTOMY STATUS 08/04/2017 ISI SENA MD, Ot 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 08/04/2017 ISI SENA MD, Ot Z95.5 PRESENCE OF CORONARY ANGIOPLASTY IMPLANT 08/04/2017 ISI SENA MD, Ot Z96.652 PRESENCE OF LEFT ARTIFICIAL KNEE JOINT Procedures Code Description Performed By Performed On [id number] REPLACE OF L KNEE JT WITH SYNTH SUB, ANGE 01/21/2015 [id number] FUSION 2-6 C JT W INTBD FUS DEV, ANT LATA 07/10/2017 [id number] INSERTION OF FEEDING DEVICE INTO STOMACH 07/17/2017 [...] resistant Staphylococcus aureus (MRSA) screening culture NEG [facility] Whole blood basic metabolic panel [...] plasma albumin measurement (mass/volume) 3.8 g/dL 3.2-4.5 Complete blood count (CBC) with automated white blood cell (WBC) differential - 08/02/17 11:30 Blood leukocytes automated count (number/volume) 9.8 10*3/uL 4.3-11.0 Blood erythrocytes automated count (number/volume) 3.65 10*6/uL 4.35-5.85 Venous blood hemoglobin measurement (mass/volume) 11.1 g/dL 13.3-17.7 Blood hematocrit (volume fraction) 33 % 40-54 Automated erythrocyte mean corpuscular volume 89 [foz_us] 80-99 Automated erythrocyte mean corpuscular hemoglobin (mass per erythrocyte) 30 pg 25-34 Automated erythrocyte mean corpuscular hemoglobin concentration measurement ( mass/volume) 34 g/dL 32-36 Automated erythrocyte distribution width ratio 12.6 % 10.0-14.5 Automated blood platelet count (count/volume) 271 10*3/uL 130-400 Automated blood platelet mean volume measurement 12.0 [foz_us] 7.4-10.4 Automated blood neutrophils/100 leukocytes 90 % 42-75 Automated blood lymphocytes/100 leukocytes 4 % 12-44 Blood monocytes/100 leukocytes 5 % 0-12 Automated blood eosinophils/100 leukocytes 0 % 0-10 Automated blood basophils/100 leukocytes 0 % 0-10 Blood neutrophils automated count (number/volume) 8.9 10*3 1.8-7.8 Blood lymphocytes automated count (number/volume) 0.4 10*3 1.0-4.0 Blood monocytes automated count (number/volume) 0.5 10*3 0.0-1.0 Automated eosinophil count 0.0 10*3/uL 0.0-0.3 Automated blood basophil count (count/volume) 0.0 10*3/uL 0.0-0.1 PT panel in platelet poor plasma by coagulation assay - 08/02/17 11:30 Prothrombin time (PT) in platelet poor plasma by coagulation assay 14.8 s 12.2-14.7 INR in platelet poor plasma or blood by coagulation assay 1.2 0.8-1.4 Activated partial thromboplastin time (aPTT) in platelet poor plasma bycoagulation assay - 08/02/17 11:30 Activated partial thromboplastin time (aPTT) in platelet poor plasma bycoagulation assay 34 s 24-35 Blood lactic acid measurement (moles/volume) - 08/02/17 11:30 Blood lactic acid measurement (moles/volume) 2.20 mmol/L 0.50-2.00 Comprehensive metabolic panel - 08/02/17 11:30 Serum or plasma sodium measurement (moles/volume) 130 mmol/L 135-145 Serum or plasma potassium measurement (moles/volume) 4.2 mmol/L 3.6-5.0 Serum or plasma chloride measurement (moles/volume) 97 mmol/L 98-107 Carbon dioxide 23 mmol/L 21-32 Serum or plasma anion gap determination (moles/volume) 10 mmol/L 5-14 Serum or plasma urea nitrogen measurement (mass/volume) 35 mg/dL 7-18 Serum or plasma creatinine measurement (mass/volume) 1.46 mg/dL 0.60-1.30 Serum or plasma urea nitrogen/creatinine mass ratio 24 NRG Serum or plasma creatinine measurement with calculation of estimated glomerular filtration rate 46 NRG Serum or plasma glucose measurement (mass/volume) 212 mg/dL 70-105 Serum or plasma calcium measurement (mass/volume) 8.8 mg/dL 8.5-10.1 Serum or plasma total bilirubin measurement (mass/volume) 0.7 mg/dL 0.1-1.0 Serum or plasma alkaline phosphatase measurement (enzymatic activity/volume) 89 U/L 40-136 Serum or plasma aspartate aminotransferase measurement (enzymatic activity/ volume) 24 U/L 5-34 Serum or plasma alanine aminotransferase measurement (enzymatic activity/volume ) 48 U/L 0-55 Serum or plasma protein measurement (mass/volume) 6.6 g/dL 6.4-8.2 Serum or plasma albumin measurement (mass/volume) 3.2 g/dL 3.2-4.5 Blood manual differential performed detection - 08/02/17 11:30 Blood monocytes/100 leukocytes 2 % NRG Manual blood segmented neutrophils/100 leukocytes 88 % NRG Blood band neutrophils/100 leukocytes 7 % NRG Manual blood lymphocytes/100 leukocytes 3 % NRG Blood erythrocyte morphology finding identification NORMAL NRG Blood toxic granules detection by light microscopy 1+ NRG THYROID STIMULATING HORMONE - 08/02/17 11:30 THYROID STIMULATING HORMONE 3.01 u[iU]/mL 0.35-4.94 Serum or plasma thyroxine (T4) free measurement (mass/volume) - 08/02/17 11:30 Serum or plasma thyroxine (T4) free measurement (mass/volume) 1.16 ng/dL 0.70-1.48 Bacterial blood culture - 08/02/17 11:30 Bacterial blood culture NG NRG Bacterial blood culture - 08/02/17 12:07 Bacterial blood culture NG NRG Complete urinalysis with reflex to culture - 08/02/17 12:46 Urine color determination RED NRG Urine clarity determination VERY CLOUDY NRG Urine pH measurement by test strip 7 5-9 Specific gravity of urine by test strip 1.005 1.016- 1.022 Urine protein assay by test strip, semi-quantitative 4+ NEGATIVE Urine glucose detection by automated test strip NEGATIVE NEGATIVE Erythrocytes detection in urine sediment by light microscopy 5+ NEGATIVE Urine ketones detection by automated test strip 1+ NEGATIVE Urine nitrite detection by test strip NEGATIVE NEGATIVE Urine total bilirubin detection by test strip NEGATIVE NEGATIVE Urine urobilinogen measurement by automated test strip (mass/volume) NORMAL NORMAL Urine leukocyte esterase detection by dipstick 3+ NEGATIVE Automated urine sediment erythrocyte count by microscopy (number/high power field) TNTC NRG Automated urine sediment leukocyte count by microscopy (number/high power field ) [HPF] NRG Bacteria detection in urine sediment by light microscopy FEW NRG Crystals detection in urine sediment by light microscopy NONE NRG Casts detection in urine sediment by light microscopy NONE NRG Mucus detection in urine sediment by light microscopy NEGATIVE NRG Complete urinalysis with reflex to culture YES NRG Bacterial urine culture - 08/02/17 12:46 Bacterial urine culture [id number] NRG COLONY COUNT . NRG FTX;REPORTABLE 40,000 CFU/ML NRG FREE TEXT ENTRY 2 RML SENT SENSITIVITY REPORT 08/06 11:05 NRG RML Sensitivity Panel - 08/02/17 12:46 Gentamicin susceptibility test by minimum inhibitory concentration < = NRG Levofloxacin susceptibility test by minimum inhibitory concentration <= NRG Piperacillin/tazobactam susceptibility test by minimum inhibitory concentration = NRG Ciprofloxacin susceptibility test by minimum inhibitory concentration <= NRG Meropenem susceptibility test by minimum inhibitory concentration < = NRG Aztreonam susceptibility test by minimum inhibitory concentration 4 NRG Imipenem susceptibility test by minimum inhibitory concentration 2 NRG Ceftazidime susceptibility test by minimum inhibitory concentration <= NRG Serum or plasma lactate measurement (moles/volume) - 08/02/17 14:33 Serum or plasma lactate measurement (moles/volume) 1.37 mmol/L 0.50-2.00 Complete blood count (CBC) with automated white blood cell (WBC) differential - 08/03/17 05:35 Blood leukocytes automated count (number/volume) 8.5 10*3/uL 4.3-11.0 Blood erythrocytes automated count (number/volume) 3.21 10*6/uL 4.35-5.85 Venous blood hemoglobin measurement (mass/volume) 9.8 g/dL 13.3-17.7 Blood hematocrit (volume fraction) 29 % 40-54 Automated erythrocyte mean corpuscular volume 91 [foz_us] 80-99 Automated erythrocyte mean corpuscular hemoglobin (mass per erythrocyte) 31 pg 25-34 Automated erythrocyte mean corpuscular hemoglobin concentration measurement ( mass/volume) 34 g/dL 32-36 Automated erythrocyte distribution width ratio 12.5 % 10.0-14.5 Automated blood platelet count (count/volume) 234 10*3/uL 130-400 Automated blood platelet mean volume measurement 11.8 [foz_us] 7.4-10.4 Automated blood neutrophils/100 leukocytes 84 % 42-75 Automated blood lymphocytes/100 leukocytes 7 % 12-44 Blood monocytes/100 leukocytes 9 % 0-12 Automated blood eosinophils/100 leukocytes 0 % 0-10 Automated blood basophils/100 leukocytes 0 % 0-10 Blood neutrophils automated count (number/volume) 7.1 10*3 1.8-7.8 Blood lymphocytes automated count (number/volume) 0.6 10*3 1.0-4.0 Blood monocytes automated count (number/volume) 0.8 10*3 0.0-1.0 Automated eosinophil count 0.0 10*3/uL 0.0-0.3 Automated blood basophil count (count/volume) 0.0 10*3/uL 0.0-0.1 Whole blood basic metabolic panel - 08/03/17 05:35 Serum or plasma sodium measurement (moles/volume) 133 mmol/L 135-145 Serum or plasma potassium measurement (moles/volume) 4.3 mmol/L 3.6-5.0 Serum or plasma chloride measurement (moles/volume) 104 mmol/L 98-107 Carbon dioxide 20 mmol/L 21-32 Serum or plasma anion gap determination (moles/volume) 9 mmol/L 5-14 Serum or plasma urea nitrogen measurement (mass/volume) 26 mg/dL 7-18 Serum or plasma creatinine measurement (mass/volume) 1.17 mg/dL 0.60-1.30 Serum or plasma urea nitrogen/creatinine mass ratio 22 NRG Serum or plasma creatinine measurement with calculation of estimated glomerular filtration rate 60 NRG Serum or plasma glucose measurement (mass/volume) 106 mg/dL 70-105 Serum or plasma calcium measurement (mass/volume) 8.2 mg/dL 8.5-10.1 Complete blood count (CBC) with automated white blood cell (WBC) differential - 08/04/17 05:10 Blood leukocytes automated count (number/volume) 6.6 10*3/uL 4.3-11.0 Blood erythrocytes automated count (number/volume) 3.28 10*6/uL 4.35-5.85 Venous blood hemoglobin measurement (mass/volume) 9.9 g/dL 13.3-17.7 Blood hematocrit (volume fraction) 30 % 40-54 Automated erythrocyte mean corpuscular volume 92 [foz_us] 80-99 Automated erythrocyte mean corpuscular hemoglobin (mass per erythrocyte) 30 pg 25-34 Automated erythrocyte mean corpuscular hemoglobin concentration measurement ( mass/volume) 33 g/dL 32-36 Automated erythrocyte distribution width ratio 12.8 % 10.0-14.5 Automated blood platelet count (count/volume) 215 10*3/uL 130-400 Automated blood platelet mean volume measurement 11.0 [foz_us] 7.4-10.4 Automated blood neutrophils/100 leukocytes 72 % 42-75 Automated blood lymphocytes/100 leukocytes 13 % 12-44 Blood monocytes/100 leukocytes 11 % 0-12 Automated blood eosinophils/100 leukocytes 4 % 0-10 Automated blood basophils/100 leukocytes 0 % 0-10 Blood neutrophils automated count (number/volume) 4.8 10*3 1.8-7.8 Blood lymphocytes automated count (number/volume) 0.9 10*3 1.0-4.0 Blood monocytes automated count (number/volume) 0.7 10*3 0.0-1.0 Automated eosinophil count 0.3 10*3/uL 0.0-0.3 Automated blood basophil count (count/volume) 0.0 10*3/uL 0.0-0.1 Complete blood count (CBC) with automated white blood cell (WBC) differential - 08/06/17 04:38 Blood leukocytes automated count (number/volume) 5.9 10*3/uL 4.3-11.0 Blood erythrocytes automated count (number/volume) 3.45 10*6/uL 4.35-5.85 Venous blood hemoglobin measurement (mass/volume) 10.2 g/dL 13.3-17.7 Blood hematocrit (volume fraction) 31 % 40-54 Automated erythrocyte mean corpuscular volume 90 [foz_us] 80-99 Automated erythrocyte mean corpuscular hemoglobin (mass per erythrocyte) 30 pg 25-34 Automated erythrocyte mean corpuscular hemoglobin concentration measurement ( mass/volume) 33 g/dL 32-36 Automated erythrocyte distribution width ratio 12.5 % 10.0-14.5 Automated blood platelet count (count/volume) 244 10*3/uL 130-400 Automated blood platelet mean volume measurement 10.9 [foz_us] 7.4-10.4 Automated blood neutrophils/100 leukocytes 53 % 42-75 Automated blood lymphocytes/100 leukocytes 22 % 12-44 Blood monocytes/100 leukocytes 12 % 0-12 Automated blood eosinophils/100 leukocytes 12 % 0-10 Automated blood basophils/100 leukocytes 1 % 0-10 Blood neutrophils automated count (number/volume) 3.1 10*3 1.8-7.8 Blood lymphocytes automated count (number/volume) 1.3 10*3 1.0-4.0 Blood monocytes automated count (number/volume) 0.7 10*3 0.0-1.0 Automated eosinophil count 0.7 10*3/uL 0.0-0.3 Automated blood basophil count (count/volume) 0.0 10*3/uL 0.0-0.1 Comprehensive metabolic panel - 08/06/17 04:38 Serum or plasma sodium measurement (moles/volume) 139 mmol/L 135-145 Serum or plasma potassium measurement (moles/volume) 4.9 mmol/L 3.6-5.0 Serum or plasma chloride measurement (moles/volume) 108 mmol/L 98-107 Carbon dioxide 22 mmol/L 21-32 Serum or plasma anion gap determination (moles/volume) 9 mmol/L 5-14 Serum or plasma urea nitrogen measurement (mass/volume) 17 mg/dL 7-18 Serum or plasma creatinine measurement (mass/volume) 0.95 mg/dL 0.60-1.30 Serum or plasma urea nitrogen/creatinine mass ratio 18 NRG Serum or plasma creatinine measurement with calculation of estimated glomerular filtration rate > NRG Serum or plasma glucose measurement (mass/volume) 88 mg/dL 70-105 Serum or plasma calcium measurement (mass/volume) 8.7 mg/dL 8.5-10.1 Serum or plasma total bilirubin measurement (mass/volume) 0.4 mg/dL 0.1-1.0 Serum or plasma alkaline phosphatase measurement (enzymatic activity/volume) 79 U/L 40-136 Serum or plasma aspartate aminotransferase measurement (enzymatic activity/ volume) 32 U/L 5-34 Serum or plasma alanine aminotransferase measurement (enzymatic activity/volume ) 50 U/L 0-55 Serum or plasma protein measurement (mass/volume) 6.1 g/dL 6.4-8.2 Serum or plasma albumin measurement (mass/volume) 2.8 g/dL 3.2-4.5 Encounters ACCT No. Visit Date/Time Discharge Status Pt. 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 [facility] ER ABD ISSUES [id number] 07/10/2017 09:56:00 07/18/2017 14:21:00 DIS Outpatient AMA MOON MD [facility] 4TH STENOSIS;DYSPHAGIA [id number] 07/04/2017 12:20:00 07/04/2017 13:05:00 DIS Outpatient AMA MOON MD [facility] PREOP C4-C7 ACDF [id number] 12/13/2016 12:58:00 12/13/2016 23:59:59 CLS Outpatient ANDREW ASTORGA FACC, KEZIA JETT CCDS [facility] 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 [id number] 08/02/2016 15:57:00 08/02/2016 23:59:59 CLS Outpatient YENY FIELD DO [facility] RAD M54.2,M54.6 [id number] 03/15/2016 06:44:00 03/15/2016 09:00:00 DIS Outpatient MAGDIEL MARTINEZ MD [facility] SDC MELANA [id number] 03/11/2016 05:32:00 03/11/2016 12:26:00 DIS Outpatient MAGDIEL MARTINEZ MD [facility] PREOP MELANA [id number] 11/19/2015 07:49:00 11/19/2015 23:59:59 CLS Outpatient CHANCE CARRENO [facility] CARD CAD,HYPERTENSION [id number] 10/19/2015 11:54:00 10/19/2015 23:59:59 CLS Outpatient CHANCE CARRENO [facility] RAD CAD,HTN,HLD [id number] 10/16/2015 10:47:00 10/16/2015 23:59:59 CLS Outpatient CHANCE CARRENO [facility] CARD CAD [id number] 08/25/2015 23:58:00 08/26/2015 01:01:00 DIS Emergency MARISOL ROSE MD [facility] ER BOTH EYELIDS BLEEDING( SURGERY ON 08-25-15) [id number] 07/13/2015 13:50:00 07/13/2015 23:59:59 CLS Outpatient AME RODRIGEZ MD [facility] RAD SPINAL STENOSIS OF LUMBOSACRAL SPINE [id number] 01/21/2015 05:57:00 01/24/2015 12:45:00 DIS Inpatient AME RODRIGEZ MD [facility] 4TH LEFT KNEE SEVERE OSTEOARTHRIS [id number] 01/14/2015 10:10:00 01/14/2015 23:59:59 CLS Outpatient AME RODRIGEZ MD [facility] PREOP LEFT KNEE SEVERE OSTEOARTHRITIS [id number] 09/09/2013 11:13:00 09/09/2013 23:59:59 CLS Outpatient DREW MARTINEZ MD [facility] RAD LT KNEE PAIN [id number] 06/18/2013 08:39:00 06/19/2013 09:30:00 DIS Outpatient KEZIA MORALES MD, FACC, FACP CCDS [facility] CATH ANGINA [id number] 04/30/2013 13:55:00 05/01/2013 11:00:00 DIS Outpatient KEZIA MORALES MD, FACC FACKeon CCDS [facility] CATH CHEST PAIN DYPSENIA HYPERTENSION [id number] 10/25/2012 07:48:00 10/25/2012 23:59:59 CLS Outpatient KEZIA MORALES MD, FACC, FACP CCDS [facility] RAD CHEST DISCOMFORT [id number] 10/18/2012 09:33:00 10/18/2012 23:59:59 CLS Outpatient KEZIA MORALES MD, FACC FACKeon CCDS [facility] CARD CHEST DISCOMFORT [id number] 08/02/2017 13:30:00 ACT Inpatient JAIDA ASTORGA, ISI Sanchez [facility] 4TH SEPSIS,UTI,HEMATURIS,CONFUSION/AGGITATION
[2017-08-14] MEDS ORDERED: NS IV 1000 ML 1,000 ML IV SCH (21:43)
[2017-08-14] MEDS ORDERED: NS IV 500 ML 500 ML IV ONE (21:43)
--- NOTE | 2017-08-14 21:43 | ED GI ---
General Chief Complaint: Abdominal/GI Problems Stated Complaint: VOMITING, ASP RISK Nursing Triage Note: patient brought from nursing facility for n/v Sepsis Screen: No Definite Risk Source of Information: Patient, Family Exam Limitations: No Limitations History of Present Illness Date Seen by Provider: Aug 14, 2017 Time Seen by Provider: 21:31 Initial Comments The patient presents to the ER by EMS from [facility] where he apparently had an episode of vomiting a large amount of fluid. He has a PEG tube. He was not given anything for anti-medics by staff instead they called EMS to transport him because of his risk of aspiration they wanted him evaluated at the ER. He is not coughing or having any shortness of breath. He denies any belly pain. He does have an indwelling Joe catheter. He has no fever. Spoke with the patient's son and he says the patient recently if you weeks ago had a neck surgery done in [place] and ever since then his had troubles walking. Patient also gets very sick and was in the hospital recently and just discharged last to [facility] for urinary tract infection and sepsis. The son says when he gets very sick and is in the hospital he is asked like he is not himself won't answer questions and doesn't make any sense but when he was in the [facility] he was talking normally and interacting just not walking. Allergies and Home Medications Allergies Coded Allergies: No Known Drug Allergies (Unverified , 10/25/12) Home Medications Acetaminophen 325 Mg Tablet, 650 MG PO Q4H PRN for TEMPATURE OR MILD PAIN, ( Reported) Aspirin 81 Mg Tab.chew, 162 MG PEG DAILY, (Reported) TAKE 2 (81MG) TABS Dorzolamide HCl/Timolol Maleat 10 Ml Drops, 1 DROP OU BID, (Reported) Famotidine 20 Mg Tablet, 20 MG PEG BID, (Reported) Glycerin/Propylene Glycol 30 Ml Drops, 1 DROP OU QID PRN for DRY EYES, (Reported ) Lactose-Reduced Food/Fiber 237 Ml Liquid, 237 ML PEG 5XD, (Reported) Levofloxacin 500 Mg Tablet, 500 MG PEG DAILY, (Reported) 7 DAY THERAPY ORDER DATE 08-02-17 Levothyroxine Sodium 88 Mcg Tablet, 88 MCG PEG DAILY, (Reported) Loteprednol Etabonate 5 Gm Drops.gel, 1 DROP OD DAILY, (Reported) Magnesium Hydroxide 400 Mg/5 Ml Oral.susp, 30 ML PEG DAILY PRN for CONSTIPATION- 7TH LINE, (Reported) Melatonin 3 Mg Tablet, 3 MG PO HS, (Reported) Metoprolol Succinate 100 Mg Tab.er.24h, 100 MG PEG DAILY, (Reported) HOLD AND NOTIFY PHYSICIAN FOR SYSTOLIC LESS THAN 100 AND OR DIASTOLIC LESS THAN 60. HOLD AND NOTIFY PHYSICIAN FOR PULSE LESS THAN OR EQUAL TO 60 Tramadol HCl 50 Mg Tablet, 50 MG PO Q6H PRN for PAIN-MODERATE, (Reported) Patient Home Medication List Home Medication List Reviewed: Yes Review of Systems Constitutional: see HPI (review of systems is limited as the patient just nods his head yes or no.); No chills, No fever EENTM: No Ear Pain, No Nose Pain Respiratory: Cough; Denies Shortness of Air Cardiovascular: Denies Chest Pain, Denies Lightheadedness Gastrointestinal: Denies Abdominal Pain, Denies Diarrhea, Denies Nausea Past Wjaxomi-Cwkujw-Jrpeor Hx Patient Social History Alcohol Use: Denies Use Recreational Drug Use: No Smoking Status: Former Smoker Type Used: Cigarettes Former Smoker, Quit: Mar 11, 1989 Recent Foreign Travel: No Contact w/Someone Who Travel: No Recent Infectious Disease Expo: No Recent Hopitalizations: No Immunizations Up To Date Date of Pneumonia Vaccine: Nov 12, 2015 Date of Influenza Vaccine: Dec 06, 2015 Seasonal Allergies Seasonal Allergies: No Past Medical History Surgeries: Yes ([employer]NEA TRANSPLANT, MASTOIDECTOMY, eyelid reduction, L TKR, neck , PEG tube) Gallbladder, Joint Replacement, Orthopedic Respiratory: No Cardiac: Yes (STENTS X2-LAST ONE COUPLE YEARS AGO) Coronary Artery Disease, High Cholesterol, Hypertension Neurological: Yes (dysphagia) Reproductive Disorders: No Sexually Transmitted Disease: No HIV/AIDS: No Genitourinary: Yes (joe cath since having sx on cervical spin for stenosis) Gastrointestinal: Yes (peg tube placement since having sx on cervical spine for stenosis) Chronic Constipation Musculoskeletal: Yes (spinal stenosis, ) Arthritis, Chronic Back Pain Endocrine: No Hypothyroidsim HEENT: Yes Glaucoma Loss of Vision: Bilateral Hearing Impairment: Denies Cancer: No Psychosocial: No Integumentary: No Blood Disorders: No Adverse Reaction/Blood Tranf: No Family Medical History LUNG CANCER G8 BROTHER Myocardial infarction 19 MOTHER Physical Exam Vital Signs Vital Signs - First Documented 08/14/17 21:35 Temp 98.2 Pulse 121 Resp 18 B/P (MAP) 136/94 (108) Pulse Ox 96 Capillary Refill : Less Than 3 Seconds General Appearance: WD/WN, no apparent distress HEENT: PERRL/EOMI, normal ENT inspection, TMs normal, pharynx normal ( oropharynx is mildly dry) Respiratory: chest non-tender, lungs clear, normal breath sounds, no respiratory distress, no accessory muscle use Cardiovascular: normal peripheral pulses, regular rate, rhythm, no edema, no JVD, tachycardia Peripheral Pulses: 2+ Radial Pulses (R), 2+ Radial Pulses (L) Gastrointestinal: normal bowel sounds (fairly active), non tender, soft Extremities: normal range of motion, non-tender, normal inspection, normal capillary refill Neurologic/Psychiatric: alert, other (flat affect, does not follow commands but does answer questions yes or no by nodding his head.) Skin: normal color, warm/dry Focused Exam Lactate Level 08/14/17 22:22: Lactic Acid Level 0.94 Lactic Acid Level Laboratory Tests Test 08/14/17 22:22 Lactic Acid Level 0.94 MMOL/L (0.50-2.00) Progress/Results/Core Measures Results/Orders Lab Results Laboratory Tests Test 08/14/17 22:22 08/14/17 22:53 Range/Units White Blood Count 12.5 H 4.3-11.0 10^3/uL Red Blood Count 3.84 L 4.35-5.85 10^6/uL Hemoglobin 11.7 L 13.3-17.7 G/DL Hematocrit 34 L 40-54 % Mean Corpuscular Volume 88 80-99 FL Mean Corpuscular Hemoglobin 30 25-34 PG Mean Corpuscular Hemoglobin Concent 35 32-36 G/DL Red Cell Distribution Width 13.0 10.0-14.5 % Platelet Count 306 130-400 10^3/uL Mean Platelet Volume 10.9 H 7.4-10.4 FL Neutrophils (%) (Auto) 78 H 42-75 % Lymphocytes (%) (Auto) 10 L 12-44 % Monocytes (%) (Auto) 11 0-12 % Eosinophils (%) (Auto) 1 0-10 % Basophils (%) (Auto) 0 0-10 % Neutrophils # (Auto) 9.8 H 1.8-7.8 X 10^3 Lymphocytes # (Auto) 1.2 1.0-4.0 X 10^3 Monocytes # (Auto) 1.3 H 0.0-1.0 X 10^3 Eosinophils # (Auto) 0.2 0.0-0.3 10^3/uL Basophils # (Auto) 0.0 0.0-0.1 10^3/uL Prothrombin Time 14.4 12.2-14.7 SEC INR Comment 1.1 0.8-1.4 Activated Partial Thromboplast Time 32 24-35 SEC Sodium Level 130 L 135-145 MMOL/L Potassium Level 4.5 3.6-5.0 MMOL/L Chloride Level 98 98-107 MMOL/L Carbon Dioxide Level 20 L 21-32 MMOL/L Anion Gap 12 5-14 MMOL/L Blood Urea Nitrogen 35 H 7-18 MG/DL Creatinine 1.22 0.60-1.30 MG/DL Estimat Glomerular Filtration Rate 57 BUN/Creatinine Ratio 29 Glucose Level 120 H 70-105 MG/DL Lactic Acid Level 0.94 0.50-2.00 MMOL/L Calcium Level 9.1 8.5-10.1 MG/DL Magnesium Level 1.9 1.8-2.4 MG/DL Total Bilirubin 1.0 0.1-1.0 MG/DL Aspartate Amino Transf (AST/SGOT) 40 H 5-34 U/L Alanine Aminotransferase (ALT/SGPT) 48 0-55 U/L Alkaline Phosphatase 85 40-136 U/L Total Protein 6.8 6.4-8.2 GM/DL Albumin 3.1 L 3.2-4.5 GM/DL My Orders Orders - MARC WILDER Cbc With Automated Diff (08/14/17 21:37) Comprehensive Metabolic Panel (08/14/17 21:37) Magnesium (08/14/17 21:37) Ua Culture If Indicated (08/14/17 21:37) Chest 1 View, Ap/Pa Only (08/14/17 21:37) Abdomen/Kub 1view (08/14/17 21:37) Saline Lock/Iv-Start (08/14/17 21:37) Lactated Ringers (Lr 1000 Ml Iv Solution (08/14/17 21:37) Ondansetron Injection (Zofran Injectio (08/14/17 21:45) Lactic Acid Analyzer (08/14/17 21:43) Blood Culture (08/14/17 21:43) Sputum Culture (08/14/17 21:43) Protime With Inr (08/14/17 21:43) Partial Thromboplastin Time (08/14/17 21:43) O2 (08/14/17 21:43) Saline Lock/Iv-Start (08/14/17 21:43) Vital Signs Adult Sepsis Patie Q1H (08/14/17 21:43) Remove Rings In Anticipation O (08/14/17 21:43) Saline Lock/Iv-Start (08/14/17 21:43) Ns Iv 500 Ml (Sodium Chloride 0.9%) (08/14/17 21:43) Ns Iv 1000 Ml (Sodium Chloride 0.9%) (08/14/17 21:43) Ceftriaxone Injection (Rocephin Injectio (08/14/17 23:00) Medications Given in ED Current Medications Medications Dose Ordered Sig/Moshe Route Start Time Stop Time Status Last Admin Dose Admin Ondansetron HCl 8 mg ONCE ONCE IVP 08/14/17 21:45 08/14/17 21:46 DC 08/14/17 21:43 8 MG Vital Signs/I&O 08/14/17 21:35 Temp 98.2 Pulse 121 Resp 18 B/P (MAP) 136/94 (108) Pulse Ox 96 Blood Pressure Mean: 108 Progress Progress Note #1: Time: 22:20 Progress Note The patient has had a nonproductive cough a few times since he's been here. We' ll obtain chest and abdomen x-rays. We'll obtain labs and a urine specimen. He was recently treated for urinary tract infection with sepsis. His urine looks clean and the Joe catheter and bag. His tachycardia is concerning for possible aspiration. There is some mild prominence in the right middle and lower lobes that was seen on previous x-rays it is just a little more filled out. If he has elevated white count given his recent vomiting it's reasonable to start him on Zosyn and consider aspiration pneumonia. Progress Note #2: Time: 22:43 Progress Note Chest x-ray unremarkable. He does have significant stool load in his colon on the x-ray of his abdomen without any evidence of obstruction. It could be impacted which could be causing some nausea. He is denying any urinary symptoms when asked and likely will have colonizing bacteria in his urine. His white count pretty unremarkable at 12.5 thousand and could just be due to his nausea vomiting and constipation. He has received over half of his IV fluids and still tachycardic in the 1 teens to 120. Diagnostic Imaging Diagonstic Imaging: Xray Plain Films/CT/US/NM/MRI: chest (1v) Comments Chest x-ray is stable from August 02, 2017. [facility] [place] [place] NAME: ROSALBA SMITH [facility] REC#: [id number] PT STATUS: REG ER : 1935 PHYSICIAN: MARC WILDER MD ADMIT DATE: 08/14/17/ER Draft Date of Exam:08/14/17 CHEST 1 VIEW, AP/PA ONLY INDICATION: Nausea and vomiting.. TECHNIQUE: Single view chest at 10:03 PM. CORRELATION STUDY: 08/02/2017 FINDINGS: Heart size is enlarged and vasculature is slightly prominent. There are what appears to be chronic senescent type changes about the lung parenchyma. Streaky areas of likely atelectasis or, less likely, infiltrate in the perihilar and basilar regions. IMPRESSION: 1. Cardiac enlargement with vasculature slightly prominent from prior study. Streaky perihilar areas of likely atelectasis versus edema about the perihilar and basilar regions. Dictated on workstation # [id number] Dict: 08/14/172220 Trans: 08/14/172226 [facility] [id number] Interpreted by: TRISTAN LOPEZ DO Electronically signed by: Reviewed: Reviewed by Me Diagonstic Imaging: Xray Plain Films/CT/US/NM/MRI: abdomen (KUB 1 view) Comments Large amounts of feces in the large intestine but no evidence of small bowel obstruction. Gas distention in the descending colon. Stool in the rectum. Constipation. [facility] [place] [place] NAME: ROSALBA SMITH [facility] REC#: [id number] PT STATUS: REG ER : 1935 PHYSICIAN: MARC WILDER MD ADMIT DATE: 08/14/17/ER Draft Date of Exam:08/14/17 ABDOMEN/KUB 1VIEW INDICATION: Nausea and vomiting.. TECHNIQUE: Portable supine view of the abdomen at 10:06 PM CORRELATION STUDY: None FINDINGS: There is a moderate amount of retained fecal material. Disproportionate colonic fecal loading in the proximal colon as well as at the level the rectum. Gas distention in the remainder of the colon. Clips within the pelvis. Probable gastrostomy tube in the upper abdomen. IMPRESSION: 1. Moderate severity fecal loading. Disproportionate distal colonic fecal loading and a small degree of impaction not excluded. Dictated on workstation # [id number] Dict: 08/14/172221 Trans: 08/14/172225 [facility] [id number] Interpreted by: TRISTAN LOPEZ DO Electronically signed by: Reviewed: Reviewed by Me Departure Communication (Admissions) Time/Spoke to Admitting Phy: 23:07 Discussed the case with and he agrees to hold on the patient given his not responding tachycardia, altered mental status or possible UTI. We'll treat him with Rocephin and see how is doing in the morning. Continue the fluids at one half times maintenance as well as his feeds and Dr. Parsons has agreed with some MiraLAX times one tonight. Impression Primary Impression: Nausea and vomiting Qualified Codes: R11.2 - Nausea with vomiting, unspecified Additional Impressions: UTI (urinary tract infection) Qualified Codes: T83.511A - Infection and inflammatory reaction due to indwelling urethral catheter, initial encounter; N39.0 - Urinary tract infection , site not specified S/P percutaneous endoscopic gastrostomy (PEG) tube placement Constipation Qualified Codes: K59.00 - Constipation, unspecified Sepsis Qualified Codes: A41.9 - Sepsis, unspecified organism Delirium due to another medical condition, acute, hypoactive Disposition: ADMITTED INPATIENT (obs) Condition: Stable Admissions Decision to Admit Reason: Admit from ER (General) Decision to Admit/Date: Aug 14, 2017 Time/Decision to Admit Time: 23:10 Departure-Patient Inst. Referrals: ISI SENA MD (PCP/Family) Primary Care Physician GUNNAR ALBARRAN MD Copy Copies To 1: GUNNAR ALBARRAN MD, TITUS J Aug 14, 2017 21:43
[2017-08-14] MEDS ORDERED: ONDANSETRON 4 MG/2 ML (SDV) Z0FRAN IVP ONE (21:45)
--- NOTE | 2017-08-14 22:26 | Diagnostic Imaging Report ---
INDICATION: Nausea and vomiting.. TECHNIQUE: Portable supine view of the abdomen at 10:06 PM CORRELATION STUDY: None FINDINGS: There is a moderate amount of retained fecal material. Disproportionate colonic fecal loading in the proximal colon as well as at the level the rectum. Gas distention in the remainder of the colon. Clips within the pelvis. Probable gastrostomy tube in the upper abdomen. IMPRESSION: 1. Moderate severity fecal loading. Disproportionate distal colonic fecal loading and a small degree of impaction not excluded. Dictated by: Dictated on workstation # [id number]
--- NOTE | 2017-08-14 22:28 | Diagnostic Imaging Report ---
INDICATION: Nausea and vomiting.. TECHNIQUE: Single view chest at 10:03 PM. CORRELATION STUDY: 08/02/2017 FINDINGS: Heart size is enlarged and vasculature is slightly prominent. There are what appears to be chronic senescent type changes about the lung parenchyma. Streaky areas of likely atelectasis or, less likely, infiltrate in the perihilar and basilar regions. IMPRESSION: 1. Cardiac enlargement with vasculature slightly prominent from prior study. Streaky perihilar areas of likely atelectasis versus edema about the perihilar and basilar regions. Dictated by: Dictated on workstation # [id number]
[2017-08-14 22:30] LABS: BASOPHILS % (AUTO) 0 % (0-10); EOSINOPHILS # (AUTO) 0.2 10^3/uL (0.0-0.3); EOSINOPHILS % (AUTO) 1 % (0-10); HEMATOCRIT 34 % (40-54); HEMOGLOBIN 11.7 G/DL (13.3-17.7); LYMPHOCYTES # (AUTO) 1.2 X 10^3 (1.0-4.0); LYMPHOCYTES % (AUTO) 10 % (12-44); MEAN CORPUSCULAR HGB CONC 35 G/DL (32-36); MEAN CORPUSCULAR VOLUME 88 FL (80-99); MEAN PLATELET VOLUME 10.9 FL (7.4-10.4); MONOCYTES # (AUTO) 1.3 X 10^3 (0.0-1.0); MONOCYTES % (AUTO) 11 % (0-12); NEUTROPHILS # (AUTO) 9.8 X 10^3 (1.8-7.8); NEUTROPHILS % (AUTO) 78 % (42-75); PLATELET COUNT 306 10^3/uL (130-400); RED BLOOD COUNT 3.84 10^6/uL (4.35-5.85); WHITE BLOOD COUNT 12.5 10^3/uL (4.3-11.0)
[2017-08-14 22:31] LABS: MEAN CORPUSCULAR HEMOGLOBIN 30 PG (25-34)
[2017-08-14 22:42] LABS: INR 1.1 (0.8-1.4); PROTHROMBIN TIME PATIENT 14.4 SEC (12.2-14.7)
[2017-08-14 22:51] LABS: ALBUMIN 3.1 GM/DL (3.2-4.5); CALCIUM 9.1 MG/DL (8.5-10.1); CREATININE SERUM 1.22 MG/DL (0.60-1.30); MAGNESIUM 1.9 MG/DL (1.8-2.4); POTASSIUM 4.5 MMOL/L (3.6-5.0); TOTAL PROTEIN 6.8 GM/DL (6.4-8.2)
[2017-08-14 22:58] LABS: BILIRUBIN,URINE NEGATIVE (NEGATIVE); CLARITY,URINE CLEAR; COLOR,URINE AMBER; GLUCOSE, URINE (UA) NEGATIVE (NEGATIVE); KETONES,URINE NEGATIVE (NEGATIVE); LEUKOCYTE ESTERASE ,URINE 1+ (NEGATIVE); NITRITE,URINE NEGATIVE (NEGATIVE); PH,URINE 6.5 (5-9); PROTEIN,URINE 3+ (NEGATIVE); UROBILINOGEN,URINE 1 MG/DL (NORMAL)
[2017-08-14] MEDS ORDERED: cefTRIAXone INJECTION 1,000 MG in NS (IVPB) 50 ML IV ONE (23:00)
[2017-08-14 23:07] LABS: BACTERIA,URINE NEGATIVE /HPF; RBC,URINE RARE /HPF; WBC,URINE 0-2 /HPF
--- OUTSIDE RECORDS SUMMARY | 2017-08-14 23:27 | XMS REPORT | Continuity of Care Document ---
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 06/19/2013 ANDREW FERREIRA, KEZIA FERREIRAP CCDS Ot 426.4 RT BUNDLE BRANCH BLOCK 06/19/2013 ANDREW ASTORGA FACC, KEZIA FACP CCDS Ot 585.3 CHRONIC KIDNEY DISEASE, STAGE III (MODER 06/19/2013 ANDREW ASTORGA FACC, KEZIA FACP CCDS Ot 786.59 CHEST PAIN NEC 06/19/2013 ANDREW ASTORGA FACC, [facility] Ot V15.82 HISTORY OF TOBACCO USE 06/19/2013 ANDREW ASTORGA FACC, KEZIA FACP CCDS Ot V45.82 PERCUTANEOUS TRANSLUM CORON ANGIOPLASTY 06/19/2013 ANDREW ASTORGA FACC, KEZIA FACP CCDS Ot V58.63 LONG-TERM(CURRENT)USE OF ANTIPLATELET/AN 06/19/2013 ANDREW ASTORGA FACC, KEZ[facility] CCDS Ot V58.69 OTH MED,LT,CURRENT USE [...] OTHER SPECIFIED SURGICAL A 10/19/2015 CHANCE CARRENO DIABETES NURSE Ot E78.4 OTHER HYPERLIPIDEMIA 10/19/2015 CHANCE CARRENO DIABETES NURSE Ot I10 ESSENTIAL (PRIMARY) HYPERTENSION 10/19/2015 CHANCE CARRENO DIABETES NURSE Ot I25.10 ATHSCL HEART DISEASE OF [place] CORONARY 10/19/2015 CHANCE CARRENO DIABETES NURSE Ot I65.23 OCCLUSION AND STENOSIS OF BILATERAL [...] SPECIFIED SURGICAL A 10/19/2015 BAIMA, CHANCE L DIABETES NURSE Ot E78.4 OTHER HYPERLIPIDEMIA 10/19/2015 BAIMA, CHANCE L DIABETES NURSE Ot I10 ESSENTIAL (PRIMARY) HYPERTENSION 10/19/2015 FLAKOMA, CHANCE L DIABETES NURSE Ot I25.10 ATHSCL HEART DISEASE OF [place] CORONARY 10/19/2015 BAIMA, CHANCE L DIABETES NURSE Ot 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 10/19/2015 BAIMA, CHANCE L DIABETES NURSE Ot I25.10 ATHSCL HEART DISEASE OF [place] CORONARY 10/19/2015 BAIMA, CHANCE L DIABETES NURSE Ot E78.4 OTHER HYPERLIPIDEMIA 10/19/2015 BAIMA, CHANCE L DIABETES NURSE Ot I10 ESSENTIAL (PRIMARY) HYPERTENSION 10/19/2015 BAIMA, CHANCE L DIABETES NURSE Ot I25.10 ATHSCL HEART DISEASE OF [place] CORONARY 10/19/2015 BAIMA, CHANCE L DIABETES NURSE Ot 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 10/20/2015 BAIMA, CHANCE L DIABETES NURSE Ot I25.10 ATHSCL HEART DISEASE OF [place] CORONARY 10/21/2015 BAIMA, CHANCE L DIABETES NURSE Ot E78.4 OTHER HYPERLIPIDEMIA 10/21/2015 BAIMA, CHANCE L DIABETES NURSE Ot I10 ESSENTIAL (PRIMARY) HYPERTENSION 10/21/2015 BAIMA, CHANCE L DIABETES NURSE Ot I25.10 ATHSCL HEART DISEASE OF [place] CORONARY 10/21/2015 BAIMA, CHANCE L DIABETES NURSE Ot 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 10/23/2015 WAICHANCE Mary DIABETES NURSE Ot E78.4 OTHER HYPERLIPIDEMIA 10/23/2015 FLAKOMA CHANCE L DIABETES NURSE Ot I10 ESSENTIAL (PRIMARY) HYPERTENSION 10/23/2015 WAI CHANCE L DIABETES NURSE Ot I25.10 ATHSCL HEART DISEASE OF [place] CORONARY 10/23/2015 CHANCE CARRENO DIABETES NURSE Ot I65.23 OCCLUSION AND STENOSIS OF BILATERAL [...] OTHER SPECIFIED SURGICAL A 10/27/2015 CHANCE CARRENO DIABETES NURSE Ot E78.4 OTHER HYPERLIPIDEMIA 10/27/2015 WAICHANCE Mary DIABETES NURSE Ot I10 ESSENTIAL (PRIMARY) HYPERTENSION 10/27/2015 CHANCE CARRENO DIABETES NURSE Ot I25.10 ATHSCL HEART DISEASE OF [place] CORONARY 10/27/2015 CHANCE CARRENO DIABETES NURSE Ot 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 10/27/2015 FLAKOCHANCE FUNG DIABETES NURSE Ot E78.4 OTHER HYPERLIPIDEMIA 10/27/2015 BAIMACHANCE L DIABETES NURSE Ot I10 ESSENTIAL (PRIMARY) HYPERTENSION 10/27/2015 CHANCE CARRENO L DIABETES NURSE Ot I25.10 ATHSCL HEART DISEASE OF [place] CORONARY 10/27/2015 CHANCE CARRENO DIABETES NURSE Ot I65.23 OCCLUSION AND STENOSIS OF BILATERAL [...] SPECIFIED SURGICAL A 10/27/2015 WAI CHANCE Mary DIABETES NURSE Ot E78.4 OTHER HYPERLIPIDEMIA 10/27/2015 WAICHANCE L DIABETES NURSE Ot I10 ESSENTIAL (PRIMARY) HYPERTENSION 10/27/2015 WAI CHANCE L DIABETES NURSE Ot I25.10 ATHSCL HEART DISEASE OF [place] CORONARY 10/27/2015 BAIMACHANCE L DIABETES NURSE Ot 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 10/27/2015 BAIMA, CHANCE L DIABETES NURSE Ot E78.4 OTHER HYPERLIPIDEMIA 10/27/2015 BAIMA, CHANCE L DIABETES NURSE Ot I10 ESSENTIAL (PRIMARY) HYPERTENSION 10/27/2015 BAIMA, CHANCE L DIABETES NURSE Ot I25.10 ATHSCL HEART DISEASE OF [place] CORONARY 10/27/2015 BAIMA CHANCE L DIABETES NURSE Ot 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 11/06/2015 BAIMACHANCE L DIABETES NURSE Ot E78.4 OTHER HYPERLIPIDEMIA 11/06/2015 BAIMA, CHANCE L DIABETES NURSE Ot I10 ESSENTIAL (PRIMARY) HYPERTENSION 11/06/2015 BAIMA, CHANCE L DIABETES NURSE Ot I25.10 ATHSCL HEART DISEASE OF [place] CORONARY 11/06/2015 BAIMA CHANCE L DIABETES NURSE Ot 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 11/13/2015 BAIMA CHANCE L DIABETES NURSE Ot E78.4 OTHER HYPERLIPIDEMIA 11/13/2015 BAIMA, CHANCE L DIABETES NURSE Ot I10 ESSENTIAL (PRIMARY) HYPERTENSION 11/13/2015 BAIMA, CHANCE L DIABETES NURSE Ot I25.10 ATHSCL HEART DISEASE OF [place] CORONARY 11/13/2015 BAIMAYARIELCHANCE L DIABETES NURSE Ot I65.23 OCCLUSION AND STENOSIS OF BILATERAL [...] SPECIFIED SURGICAL A 11/19/2015 BAIMA, CHANCE L DIABETES NURSE Ot E78.4 OTHER HYPERLIPIDEMIA 11/19/2015 BAIMA, CHANCE L DIABETES NURSE Ot I10 ESSENTIAL (PRIMARY) HYPERTENSION 11/19/2015 BAIMA, CHANCE L DIABETES NURSE Ot I25.10 ATHSCL HEART DISEASE OF [place] CORONARY 11/19/2015 BAIMA, CHANCE L DIABETES NURSE Ot 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 11/19/2015 BAIMA, CHANCE L DIABETES NURSE Ot E78.4 OTHER HYPERLIPIDEMIA 11/19/2015 BAIMA, CHANCE L DIABETES NURSE Ot I10 ESSENTIAL (PRIMARY) HYPERTENSION 11/19/2015 BAIMA, CHANCE L DIABETES NURSE Ot I25.10 ATHSCL HEART DISEASE OF [place] CORONARY 11/19/2015 BAIMA, CHANCE L DIABETES NURSE Ot 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 11/20/2015 BAIMA, CHANCE L DIABETES NURSE Ot E78.4 OTHER HYPERLIPIDEMIA 11/20/2015 BAIMA, CHANCE L DIABETES NURSE Ot I10 ESSENTIAL (PRIMARY) HYPERTENSION 11/20/2015 BAIMA, CHANCE L DIABETES NURSE Ot I25.10 ATHSCL HEART DISEASE OF [place] CORONARY 11/20/2015 BAIMA, CHANCE L DIABETES NURSE Ot 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 11/23/2015 BAIMA, CHANCE L DIABETES NURSE Ot E78.4 OTHER HYPERLIPIDEMIA 11/23/2015 BAIMA, CHANCE L DIABETES NURSE Ot I10 ESSENTIAL (PRIMARY) HYPERTENSION 11/23/2015 BAIMA, CHANCE L DIABETES NURSE Ot I25.10 ATHSCL HEART DISEASE OF [place] CORONARY 11/23/2015 BAIMA, CHANCE L DIABETES NURSE Ot 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 12/11/2015 FLAKOCHANCE FUNG DIABETES NURSE Ot E78.4 OTHER HYPERLIPIDEMIA 12/11/2015 CHANCE CARRENO DIABETES NURSE Ot I10 ESSENTIAL (PRIMARY) HYPERTENSION 12/11/2015 CHANCE CARRENO DIABETES NURSE Ot I25.10 ATHSCL HEART DISEASE OF [place] CORONARY 12/11/2015 CHANCE CARRENO DIABETES NURSE Ot I65.23 OCCLUSION AND STENOSIS OF BILATERAL [...] OTHER SPECIFIED SURGICAL A 03/15/2016 CHANCE CARRENO DIABETES NURSE Ot E78.4 OTHER HYPERLIPIDEMIA 03/15/2016 BAIMA, CHANCE L DIABETES NURSE Ot I10 ESSENTIAL (PRIMARY) HYPERTENSION 03/15/2016 BAIMA, CHANCE L DIABETES NURSE Ot I25.10 ATHSCL HEART DISEASE OF [place] CORONARY 03/15/2016 BAIMA, CHANCE L DIABETES NURSE Ot 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 03/15/2016 BAIMA, CHANCE L DIABETES NURSE Ot E78.4 OTHER HYPERLIPIDEMIA 03/15/2016 BAIMA, CHANCE L DIABETES NURSE Ot I10 ESSENTIAL (PRIMARY) HYPERTENSION 03/15/2016 BAIMA, CHANCE L DIABETES NURSE Ot I25.10 ATHSCL HEART DISEASE OF [place] CORONARY 03/15/2016 BAIMA, CHANCE L DIABETES NURSE Ot 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 03/15/2016 BAIMA, CHANCE L DIABETES NURSE Ot E78.4 OTHER HYPERLIPIDEMIA 03/15/2016 BAIMA, CHANCE L DIABETES NURSE Ot I10 ESSENTIAL (PRIMARY) HYPERTENSION 03/15/2016 BAIMA, CHANCE L DIABETES NURSE Ot I25.10 ATHSCL HEART DISEASE OF [place] CORONARY 03/15/2016 BAIMA, CHANCE L DIABETES NURSE Ot 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 03/15/2016 MAGDIEL MARTINEZ MD Ot K44.9 DIAPHRAGMATIC HERNIA WITHOUT OBSTRUCTION 03/15/2016 MICHELLE ASTORGA, MAGDIEL Berger Ot K92.1 [place] 03/15/2016 MAGDIEL MARTINEZ MD Ot Z79.02 WASH DRILLER (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 03/15/2016 MAGDIEL MARTINEZ MD Ot Z79.82 HALF-WAY (CURRENT) USE OF ASPIRIN 03/17/2016 MAGDIEL MARTINEZ MD Ot K44.9 DIAPHRAGMATIC HERNIA WITHOUT OBSTRUCTION 03/17/2016 MAGDIEL MARTINEZ MD Ot K92.1 [place] 03/17/2016 MAGDIEL MARTINEZ MD Ot Z79.02 WASH DRILLER (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 03/17/2016 MAGDIEL MARTINEZ MD Ot Z79.82 HALF-WAY (CURRENT) USE OF ASPIRIN 08/02/2016 ANDREW ASTORGA [...] SPECIFIED SURGICAL A 08/02/2016 BAIMA, CHANCE L DIABETES NURSE Ot E78.4 OTHER HYPERLIPIDEMIA 08/02/2016 BAIMA, CHANCE L DIABETES NURSE Ot I10 ESSENTIAL (PRIMARY) HYPERTENSION 08/02/2016 BAIMA, CHANCE L DIABETES NURSE Ot I25.10 ATHSCL HEART DISEASE OF [place] CORONARY 08/02/2016 BAIMA, CHANCE L DIABETES NURSE Ot 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 08/02/2016 BAIMA, CHANCE L DIABETES NURSE Ot E78.4 OTHER HYPERLIPIDEMIA 08/02/2016 BAIMA, CHANCE L DIABETES NURSE Ot I10 ESSENTIAL (PRIMARY) HYPERTENSION 08/02/2016 BAIMA, CHANCE L DIABETES NURSE Ot I25.10 ATHSCL HEART DISEASE OF [place] CORONARY 08/02/2016 BAIMA, CHANCE L DIABETES NURSE Ot 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 08/02/2016 BAIMA, CHANCE L DIABETES NURSE Ot E78.4 OTHER HYPERLIPIDEMIA 08/02/2016 BAIMA, CHANCE L DIABETES NURSE Ot I10 ESSENTIAL (PRIMARY) HYPERTENSION 08/02/2016 BAIMA, CHANCE L DIABETES NURSE Ot I25.10 ATHSCL HEART DISEASE OF [place] CORONARY 08/02/2016 WAI CHANCE L DIABETES NURSE Ot I65.23 OCCLUSION AND STENOSIS OF BILATERAL [...] CCDS Ot I25.10 ATHSCL HEART DISEASE OF [place] CORONARY 12/14/2016 ANDREW ASTORGA FACC, KEZIA FACP CCDS Ot E78.4 OTHER HYPERLIPIDEMIA 12/14/2016 ANDREW ASTORGA FACC, ALI FACP CCDS Ot I12.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 12/14/2016 ANDREW ASTORGA FACC, ALI FACP CCDS Ot I25.10 ATHSCL HEART DISEASE OF [place] CORONARY 12/14/2016 ANDREW ASTORGA FACC, KEZIA FACP [...] CCDS Ot I25.10 ATHSCL HEART DISEASE OF [place] CORONARY 01/03/2017 ANDREW ASTORGA FACC, ALI FACP [...] CCDS Ot I25.10 ATHSCL HEART DISEASE OF [place] CORONARY 01/10/2017 ANDREW ASTORGA FACC, ALI FACP [...] CCDS Ot I25.10 ATHSCL HEART DISEASE OF [place] CORONARY 06/21/2017 ANDREW ASTORGA FACC, ALI FACP [...] CCDS Ot I25.10 ATHSCL HEART DISEASE OF [place] CORONARY 07/04/2017 ANDREW ASTORGA FACC, ALI FACP [...] CCDS Ot I25.10 ATHSCL HEART DISEASE OF [place] CORONARY 07/10/2017 ANDREW ASTORGA FACC, ALI FACP [...] MD Ot I25.10 ATHSCL HEART DISEASE OF [place] CORONARY 07/14/2017 AMA MOON MD Ot M19.91 [...] MD Ot I25.10 ATHSCL HEART DISEASE OF [place] CORONARY 07/17/2017 AMA MOON MD Ot M19.91 [...] MD Ot I25.10 ATHSCL HEART DISEASE OF [place] CORONARY 07/17/2017 AMA MOON MD Ot M19.91 [...] MD, Ot I25.10 ATHSCL HEART DISEASE OF [place] CORONARY 07/17/2017 AMA MOON MD Ot M19.91 [...] MD Ot I25.10 ATHSCL HEART DISEASE OF [place] CORONARY 07/18/2017 AMA MOON MD Ot M19.91 [...] MD Ot I25.10 ATHSCL HEART DISEASE OF [place] CORONARY 07/18/2017 AMA MOON MD Ot J39.2 [...] SPECIFIED SURGICAL A 07/19/2017 BAIMA, CHANCE L DIABETES NURSE Ot E78.4 OTHER HYPERLIPIDEMIA 07/19/2017 BAIMA, CHANCE L DIABETES NURSE Ot I10 ESSENTIAL (PRIMARY) HYPERTENSION 07/19/2017 BAIMA, CHANCE L DIABETES NURSE Ot I25.10 ATHSCL HEART DISEASE OF [place] CORONARY 07/19/2017 BAIMA, CHANCE L DIABETES NURSE Ot 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 07/19/2017 BAIMA, CHANCE L DIABETES NURSE Ot E78.4 OTHER HYPERLIPIDEMIA 07/19/2017 BAIMA, CHANCE L DIABETES NURSE Ot I10 ESSENTIAL (PRIMARY) HYPERTENSION 07/19/2017 BAIMA, CHANCE L DIABETES NURSE Ot I25.10 ATHSCL HEART DISEASE OF [place] CORONARY 07/19/2017 BAIMA, CHANCE L DIABETES NURSE Ot 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 07/19/2017 BAIMA, CHANCE L DIABETES NURSE Ot E78.4 OTHER HYPERLIPIDEMIA 07/19/2017 BAIMA, CHANCE L DIABETES NURSE Ot I10 ESSENTIAL (PRIMARY) HYPERTENSION 07/19/2017 BAIMA, CHANCE L DIABETES NURSE Ot I25.10 ATHSCL HEART DISEASE OF [place] CORONARY 07/19/2017 BAIMA, CHANCE L DIABETES NURSE Ot I65.23 OCCLUSION AND STENOSIS OF BILATERAL [...] CCDS Ot I25.10 ATHSCL HEART DISEASE OF [place] CORONARY 07/19/2017 ANDREW ASTORGA FACC, ALI FACP CCDS Ot 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 07/19/2017 ANDREW ASTORGA FACC, KEZIA FACP CCDS Ot N18.3 CHRONIC KIDNEY DISEASE, STAGE 3 (MODERAT 07/24/2017 REJI HAGER APRN Ot E03.9 HYPOTHYROIDISM, UNSPECIFIED 07/24/2017 REJI HAGER APRN Ot I10 ESSENTIAL (PRIMARY) HYPERTENSION 07/24/2017 REJI HAGER APRN Ot 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 07/24/2017 REJI HAGER APRN Ot Z79.82 HALF-WAY (CURRENT) USE OF ASPIRIN 07/24/2017 REJI HAGER [...] Ot 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 07/24/2017 REJI AHGER APRN Ot Z95.5 PRESENCE OF CORONARY ANGIOPLASTY [...] MD, Ot I25.10 ATHSCL HEART DISEASE OF [place] CORONARY 08/04/2017 ISI SENA MD, Ot M19.91 [...] Procedures Code Description Performed By Performed On [id number] REPLACE OF L KNEE JT WITH SYNTH SUB, ANGE 01/21/2015 [id number] FUSION 2-6 C JT W INTBD FUS DEV, ANT LATA 07/10/2017 [id number] INSERTION OF FEEDING DEVICE INTO STOMACH 07/17/2017 [...] resistant Staphylococcus aureus (MRSA) screening culture [facility] Whole blood basic metabolic panel - 07/13/17 [...] culture - 08/02/17 12:46 Bacterial urine culture [id number] NRG COLONY COUNT . NRG FTX;REPORTABLE 40,000 [...] Status Pt. Type Provider Facility Loc./Unit Complaint [id number] 07/25/2017 11:16:00 07/25/2017 23:59:59 CLS Preadmit ISI SENA MD [facility] RAD DYSPHAGIA [id number] 07/19/2017 11:35:00 07/19/2017 13:34:00 DIS Outpatient REJI HAGER BRIDGE MANAGER [facility] ER ABD ISSUES [id number] 07/10/2017 09:56:00 07/18/2017 14:21:00 DIS Outpatient AMA MOON MD [facility] 4TH STENOSIS;DYSPHAGIA [id number] 07/04/2017 12:20:00 07/04/2017 13:05:00 DIS Outpatient AMA MOON MD [facility] PREOP C4-C7 ACDF [id number] 12/13/2016 12:58:00 12/13/2016 23:59:59 CLS Outpatient ANDREW ASTORGA FACC, KEZIA JETT CCDS [facility] 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 [id number] 08/02/2016 15:57:00 08/02/2016 23:59:59 CLS Outpatient YENY FIELD DO [facility] RAD M54.2,M54.6 [id number] 03/15/2016 06:44:00 03/15/2016 09:00:00 DIS Outpatient MAGDIEL MARTINEZ MD [facility] SDC MELANA [id number] 03/11/2016 05:32:00 03/11/2016 12:26:00 DIS Outpatient MAGDIEL MARTINEZ MD [facility] PREOP MELANA [id number] 11/19/2015 07:49:00 11/19/2015 23:59:59 CLS Outpatient CHANCE CARRENO [facility] CARD CAD,HYPERTENSION [id number] 10/19/2015 11:54:00 10/19/2015 23:59:59 CLS Outpatient CHANCE CARRENO [facility] RAD CAD,HTN,HLD [id number] 10/16/2015 10:47:00 10/16/2015 23:59:59 CLS Outpatient CHANCE CARRENO [facility] CARD CAD [id number] 08/25/2015 23:58:00 08/26/2015 01:01:00 DIS Emergency MARISOL ROSE MD [facility] ER BOTH EYELIDS BLEEDING( SURGERY ON 08-25-15) [id number] 07/13/2015 13:50:00 07/13/2015 23:59:59 CLS Outpatient AME RODRIGEZ MD [facility] RAD SPINAL STENOSIS OF LUMBOSACRAL SPINE [id number] 01/21/2015 05:57:00 01/24/2015 12:45:00 DIS Inpatient AME RODRIGEZ MD [facility] 4TH LEFT KNEE SEVERE OSTEOARTHRIS [id number] 01/14/2015 10:10:00 01/14/2015 23:59:59 CLS Outpatient AME RODRIGEZ MD [facility] PREOP LEFT KNEE SEVERE OSTEOARTHRITIS [id number] 09/09/2013 11:13:00 09/09/2013 23:59:59 CLS Outpatient DREW MARTINEZ MD [facility] RAD LT KNEE PAIN [id number] 06/18/2013 08:39:00 06/19/2013 09:30:00 DIS Outpatient KEZIA MORALES MD, FACC, FACP CCDS [facility] CATH ANGINA [id number] 04/30/2013 13:55:00 05/01/2013 11:00:00 DIS Outpatient KEZIA MORALES MD, FACC FACKeon CCDS [facility] CATH CHEST PAIN DYPSENIA HYPERTENSION [id number] 10/25/2012 07:48:00 10/25/2012 23:59:59 CLS Outpatient KEZIA MORALES MD, FACC, FACP CCDS [facility] RAD CHEST DISCOMFORT [id number] 10/18/2012 09:33:00 10/18/2012 23:59:59 CLS Outpatient KEZIA MORALES MD, FACC FACKeon CCDS [facility] CARD CHEST DISCOMFORT [id number] 08/02/2017 13:30:00 ACT Inpatient JAIDA ASTORGA, ISI Sanchez [facility] 4TH SEPSIS,UTI,HEMATURIS,CONFUSION/AGGITATION
[2017-08-14 23:50] VITALS: BP 145/80
[2017-08-15] MEDS ORDERED: ACETAMINOPHEN 500 MG TAB (TYLENOL) PEG PRN (00:15)
[2017-08-15] MEDS ORDERED: ONDANSETRON 4 MG/2 ML (SDV) Z0FRAN IV PRN (00:15)
[2017-08-15] MEDS ORDERED: POLYETHYLENE GLYCOL 17 GM (MIRALAX) PACK PEG ONE (00:15)
[2017-08-15] MEDS ORDERED: meTOprolol TARTRATE 50 MG (LOPRESSOR) TAB ONE (00:55)
[2017-08-15] MEDS: NS W/KCL 20 MEQ/L 1,000 ML IV SCH ×5 (01:02→21:15)
[2017-08-15] MEDS: meTOprolol TARTRATE 50 MG (LOPRESSOR) TAB PEG SCH ×3 (01:06→21:20)
[2017-08-15 04:05] VITALS: BP 163/70
[2017-08-15] MEDS: LEVOTHYROXINE 88 MCG (LEVOTHORID) TAB PEG SCH (05:32)
[2017-08-15 06:33] LABS: BASOPHILS % (AUTO) 0 % (0-10); EOSINOPHILS # (AUTO) 0.1 10^3/uL (0.0-0.3); EOSINOPHILS % (AUTO) 1 % (0-10); HEMATOCRIT 34 % (40-54); HEMOGLOBIN 11.6 G/DL (13.3-17.7); LYMPHOCYTES % (AUTO) 9 % (12-44); MEAN CORPUSCULAR HEMOGLOBIN 31 PG (25-34); MEAN CORPUSCULAR HGB CONC 35 G/DL (32-36); MEAN CORPUSCULAR VOLUME 90 FL (80-99); MEAN PLATELET VOLUME 11.3 FL (7.4-10.4); MONOCYTES # (AUTO) 0.6 X 10^3 (0.0-1.0); MONOCYTES % (AUTO) 6 % (0-12); NEUTROPHILS # (AUTO) 9.2 X 10^3 (1.8-7.8); NEUTROPHILS % (AUTO) 84 % (42-75); PLATELET COUNT 286 10^3/uL (130-400); RED BLOOD COUNT 3.73 10^6/uL (4.35-5.85); RED CELL DISTRIBUTION WIDTH 13.2 % (10.0-14.5)
[2017-08-15 07:06] LABS: CALCIUM 8.8 MG/DL (8.5-10.1); CREATININE SERUM 1.17 MG/DL (0.60-1.30)
[2017-08-15 08:00] VITALS: BP 111/57
--- NOTE | 2017-08-15 08:14 | History & Physicial ---
History of Present Illness History of Present Illness Reason for visit/HPI 81-year-old male admitted through [facility] emergency department in the morning of August 15, 2017 after suffering from nausea and vomiting He is currently a resident of [facility] and he apparently had an episode of vomiting a large amount of fluids Patient is currently resident of [facility] having a cervical neck surgery 5 weeks ago and suffering from dysphagia following the procedure. It is not exactly clear why he has not been able to swallow. He has been followed by speech therapy and undergoing exercises for swallowing He has failed multiple attempts at swallow study. Currently he is not with any cough or any shortness of breath. He does have both a PEG tube for feeding as well as Joe catheter for urinary collection. He was recently in the hospital after suffering from urosepsis and he was taking Levaquin that was being crushed and placed in the PEG tube. Date of Admission Aug 14, 2017 at 23:00 Date Seen by Provider: Aug 15, 2017 Time Seen by Provider: 08:15 I consulted on this patient on 08/15/17 08:13 Attending Physician Dominick Parsons MD Admitting Physician Bipin Sena MD Consult Allergies and Home Medications Allergies Coded Allergies: No Known Drug Allergies (Unverified , 10/25/12) Home Medications Acetaminophen 325 Mg Tablet, 650 MG PO Q4H PRN for TEMPATURE OR MILD PAIN, ( Reported) Aspirin 81 Mg Tab.chew, 162 MG PEG DAILY, (Reported) TAKE 2 (81MG) TABS Dorzolamide HCl/Timolol Maleat 10 Ml Drops, 1 DROP OU BID, (Reported) Famotidine 20 Mg Tablet, 20 MG PEG BID, (Reported) Glycerin/Propylene Glycol 30 Ml Drops, 1 DROP OU QID PRN for DRY EYES, (Reported ) Lactose-Reduced Food/Fiber 237 Ml Liquid, 237 ML PEG 5XD, (Reported) Levofloxacin 500 Mg Tablet, 500 MG PEG DAILY, (Reported) START DATE 08-11-17 Levothyroxine Sodium 88 Mcg Tablet, 88 MCG PEG DAILY, (Reported) Loteprednol Etabonate 5 Gm Drops.gel, 1 DROP OD 1800, (Reported) Magnesium Hydroxide 400 Mg/5 Ml Oral.susp, 30 ML PEG DAILY PRN for CONSTIPATION- 7TH LINE, (Reported) Melatonin 3 Mg Tablet, 3 MG PO HS, (Reported) Metoprolol Succinate 100 Mg Tab.er.24h, 100 MG PEG DAILY, (Reported) HOLD AND NOTIFY PHYSICIAN FOR SYSTOLIC LESS THAN 100 AND OR DIASTOLIC LESS THAN 60. HOLD AND NOTIFY PHYSICIAN FOR PULSE LESS THAN OR EQUAL TO 60 Tramadol HCl 50 Mg Tablet, 50 MG PO Q6H PRN for PAIN-MODERATE, (Reported) Patient Home Medication List Home Medication List Reviewed: Yes Past Snlawsu-Jswjin-Tftyji Hx Patient Social History Alcohol Use: Denies Use Recreational Drug Use: No Smoking Status: Former Smoker Former Smoker, Quit: Mar 11, 1989 Type Used: Cigarettes Physical Abuse Screen: No Sexual Abuse: No Recent Foreign Travel: No Contact w/other who traveled: No Recent Hopitalizations: No Recent Infectious Disease Expo: No Immunizations Up To Date Date of Pneumonia Vaccine: Nov 12, 2015 Date of Influenza Vaccine: Dec 06, 2015 Seasonal Allergies Seasonal Allergies: No Surgeries Yes (CORNEA TRANSPLANT, MASTOIDECTOMY, eyelid reduction, L TKR, neck, PEG tube) Gallbladder, Joint Replacement, Orthopedic Respiratory No Cardiovascular Yes (STENTS X2-LAST ONE COUPLE YEARS AGO) Coronary Artery Disease, High Cholesterol, Hypertension Neurological Yes (dysphagia) Reproductive System Hx Reproductive Disorders: No Sexually Transmitted Disease: No HIV/AIDS: No Genitourinary Yes (joe cath since having sx on cervical spin for stenosis) UTI-Chronic Gastrointestinal Yes (peg tube placement since having sx on cervical spine for stenosis) Chronic Constipation Musculoskeletal Yes (spinal stenosis, ) Arthritis, Chronic Back Pain Endocrine History of Endocrine Disorders: No Endocrine Disorders: Hypothyroidsim HEENT History of HEENT Disorders: Yes HEENT Disorders: Glaucoma Loss of Vision: Bilateral Hearing Impairment: Denies Cancer No Psychosocial History of Psychiatric Problem: No Integumentary History of Skin or Integumenta: No Blood Transfusions History of Blood Disorders: No Adverse Reaction to a Blood Tr: No Family Medical History Family Hx: LUNG CANCER G8 BROTHER Myocardial infarction 19 MOTHER Constitutional: see HPI Physical Exam Vital Signs Vital Signs - First Documented 08/14/17 21:35 Temp 98.2 Pulse 121 Resp 18 B/P (MAP) 136/94 (108) Pulse Ox 96 O2 Delivery Room Air Capillary Refill : Less Than 3 Seconds General Appearance: No Apparent Distress, Cachetic Eyes: Bilateral Eye Normal Inspection HEENT: Other (mucous membranes are dry) Neck: Non Tender Respiratory: Lungs Clear, No Accessory Muscle Use, Decreased Breath Sounds Cardiovascular: Regular Rate, Rhythm (with occasional ectopy), Normal Peripheral Pulses Gastrointestinal: Non Tender, Soft, Other (PEG tube noted) Rectal: Deferred Back: Normal Inspection Extremity: Normal Capillary Refill, Non Tender Neurologic/Psychiatric: Depressed Affect, Motor Weakness (of upper and lower extremities slight) Skin: Normal Color Comments NAME: ROSALBA SMITH [facility] REC#: [id number] PT STATUS: ADM Yesika : 1935 PHYSICIAN: MARC WILDER MD ADMIT DATE: 08/14/17 Signed Date of Exam: 08/14/17 CHEST 1 VIEW, AP/PA ONLY INDICATION: Nausea and vomiting.. TECHNIQUE: Single view chest at 10:03 PM. CORRELATION STUDY: 08/02/2017 FINDINGS: Heart size is enlarged and vasculature is slightly prominent. There are what appears to be chronic senescent type changes about the lung parenchyma. Streaky areas of likely atelectasis or, less likely, infiltrate in the perihilar and basilar regions. IMPRESSION: 1. Cardiac enlargement with vasculature slightly prominent from prior study. Streaky perihilar areas of likely atelectasis versus edema about the perihilar and basilar regions. Dictated by: Dictated on workstation # [id number] Dict: 08/14/172220 Trans: 08/15/17813 Interpreted by: TRISTAN LOPEZ DO Electronically signed by: TRISTAN LOPEZ DO 08/15/17813 NAME: ROSALBA SMITH [facility] REC#: [id number] PT STATUS: ADM Yesika : 1935 PHYSICIAN: MARC WILDER MD ADMIT DATE: 08/14/17 Signed Date of Exam: 08/14/17 ABDOMEN/KUB 1VIEW INDICATION: Nausea and vomiting.. TECHNIQUE: Portable supine view of the abdomen at 10:06 PM CORRELATION STUDY: None FINDINGS: There is a moderate amount of retained fecal material. Disproportionate colonic fecal loading in the proximal colon as well as at the level the rectum. Gas distention in the remainder of the colon. Clips within the pelvis. Probable gastrostomy tube in the upper abdomen. IMPRESSION: 1. Moderate severity fecal loading. Disproportionate distal colonic fecal loading and a small degree of impaction not excluded. Dictated by: Dictated on workstation # [id number] Dict: 08/14/172221 Trans: 08/15/17813 Interpreted by: TRISTAN LOPEZ DO Electronically signed by: TRISTAN LOPEZ DO 08/15/1714 Assessment/Plan Assessment and Plan 1. Dehydration secondary to nausea and vomiting. Questionable enteritis but there is no diarrhea -patient to receive IV fluids he has ed 2 L in the emergency department prior to fourth medical. -He will continue with 180 cc per hour and then backed off to 125 cc per hour 2. Dysphagia times last 5 weeks. Etiology at this point needs to be further evaluated. -patient to be arranged hopefully for complete evaluation at [facility]. I spoke with his daughter Marley and she agrees with plan. He has had ENT direct evaluation with bedside laryncope. Apparently the vocal cords were noted to be functioning normally. 3. Recent urosepsis and currently being treated for UTI with Levaquin -Patient's urine analysis appears to be better by today's evaluation. 4. Status post cervical neck surgery 5 weeks ago -Patient has not had follow-up with orthopedic surgeon as of yet according to his daughter Marley. I believe he will be evaluated by orthopedics sometime within the next few weeks. 5. History of hypertension -medications to be added on as his condition improves and if blood pressure increases. Will continue to monitor. Admission Diagnosis 1. Dehydration secondary to nausea and vomiting. Questionable enteritis but there is no diarrhea 2. Dysphagia times last 5 weeks. Etiology at this point needs to be further evaluated. 3. Recent urosepsis and currently being treated for UTI with Levaquin 4. Status post cervical neck surgery 5 weeks ago 5. History of hypertension Admission Status: Inpatient Order (span 2 midnights) Reason for Inpatient Admission: IVFs Clinical Quality Measures DVT/VTE Risk/Contraindication: Risk Factor Score Per Nursin RFS Level Per Nursing on Admit: 4+=Very High BIPIN SENA MD Aug 15, 2017 08:14
[2017-08-15] MEDS: FAMOTIDINE 20 MG (PEPCID) TABLET PEG SCH ×2 (09:44→21:20)
--- NOTE | 2017-08-15 09:50 | Diagnostic Imaging Report ---
INDICATION: Sepsis. COMPARISON: 08/14/2017. FINDINGS: Frontal and lateral views of the chest demonstrate slightly increased basilar atelectasis. No large effusion is seen. The heart is prominent without pulmonary edema. There is no pneumothorax. IMPRESSION: Slightly increasing basilar atelectasis. Dictated by: Dictated on workstation # [id number]
[2017-08-15 12:00] VITALS: BP 124/58
[2017-08-15 20:29] VITALS: BP 141/65
[2017-08-16] VITALS: BP 140/66
[2017-08-16] MEDS: NS W/KCL 20 MEQ/L 1,000 ML IV SCH (04:50)
[2017-08-16] MEDS: LEVOTHYROXINE 88 MCG (LEVOTHORID) TAB PEG SCH (06:15)
[2017-08-16 07:00] VITALS: BP 162/78
[2017-08-16 08:00] VITALS: BP 134/72
[2017-08-16] MEDS: FAMOTIDINE 20 MG (PEPCID) TABLET PEG SCH ×2 (08:15→21:36)
[2017-08-16] MEDS: meTOprolol TARTRATE 50 MG (LOPRESSOR) TAB PEG SCH ×2 (08:15→21:36)
[2017-08-16] MEDS: LORazepam 1 MG (ATIVAN) TAB PO PRN ×2 (08:15→21:36)
[2017-08-16 12:00] VITALS: BP 136/64
[2017-08-16 18:33] VITALS: BP 159/77
[2017-08-17] VITALS: BP 134/72
[2017-08-17] MEDS: LEVOTHYROXINE 88 MCG (LEVOTHORID) TAB PEG SCH (05:16)
[2017-08-17] MEDS: LORazepam 1 MG (ATIVAN) TAB PO PRN ×2 (05:16→11:00)
--- NOTE | 2017-08-17 07:31 | Progress Note (SOAP) ---
Subjective Date Seen by Provider: Aug 16, 2017 Time Seen by Provider: 07:30 Subjective/Events-last exam Patient is resting comfortably in bed. He is however pulling on his PEG tube. Apparently his IV was pulled out by himself over the metalizer field operation. He does communicate but it is somewhat difficult to understand. Focused Exam Lactate Level 08/14/17 22:22: Lactic Acid Level 0.94 Objective Exam Vital Signs Date Time Temp Pulse Resp B/P (MAP) Pulse Ox O2 Delivery O2 Flow Rate FiO2 08/17/17 00:00 99.5 73 19 134/72 (92) 95 Room Air 08/16/17 20:00 Room Air 08/16/17 18:33 98.7 88 20 159/77 (104) Room Air 08/16/17 12:00 98.0 72 18 136/64 (88) 98 Room Air 08/16/17 08:00 98.9 81 24 134/72 (92) 92 Room Air I & O 08/17/17 07:00 Intake Total 1112 ml Output Total 2800 ml Balance -1688 ml Capillary Refill : Less Than 3 Seconds General Appearance: No Apparent Distress Respiratory: Lungs Clear Cardiovascular: Regular Rate, Rhythm (With occasional ectopy) Gastrointestinal: soft Results Lab Microbiology 08/14/17 Blood Culture - Preliminary, Resulted No growth Assessment/Plan Assessment/Plan Assess & Plan/Chief Complaint 1. Dehydration secondary to nausea and vomiting. Questionable enteritis but there is no diarrhea -patient to receive IV fluids he has ed 2 L in the emergency department prior to fourth medical. -He will continue with 180 cc per hour and then backed off to 125 cc per hour 08/16 -IV site is now discontinued due to him pulling and discontinuing. We'll leave IV out at this time and perform PEG tube feedings. 2. Dysphagia times last 5 weeks. Etiology at this point needs to be further evaluated. -patient to be arranged hopefully for complete evaluation at [facility]. I spoke with his daughter Marley and she agrees with plan. He has had ENT direct evaluation with bedside laryncope. Apparently the vocal cords were noted to be functioning normally. 08/16 -Will further discuss the case with triage team at [facility]. 3. Recent urosepsis and currently being treated for UTI with Levaquin -Patient's urine analysis appears to be better by today's evaluation. 08/16 -Patient continues on IV Rocephin 4. Status post cervical neck surgery 5 weeks ago -Patient has not had follow-up with orthopedic surgeon as of yet according to his daughter Marley. I believe he will be evaluated by orthopedics sometime within the next few weeks. 5. History of hypertension -medications to be added on as his condition improves and if blood pressure increases. Will continue to monitor. Clinical Quality Measures Admission Status Admission Dx 1. Dehydration secondary to nausea and vomiting. Questionable enteritis but there is no diarrhea -patient to receive IV fluids he has ed 2 L in the emergency department prior to fourth medical. -He will continue with 180 cc per hour and then backed off to 125 cc per hour 2. Dysphagia times last 5 weeks. Etiology at this point needs to be further evaluated. -patient to be arranged hopefully for complete evaluation at [facility]. I spoke with his daughter Marley and she agrees with plan. He has had ENT direct evaluation with bedside laryncope. Apparently the vocal cords were noted to be functioning normally. 3. Recent urosepsis and currently being treated for UTI with Levaquin -Patient's urine analysis appears to be better by today's evaluation. 4. Status post cervical neck surgery 5 weeks ago -Patient has not had follow-up with orthopedic surgeon as of yet according to his daughter Marley. I believe he will be evaluated by orthopedics sometime within the next few weeks. 5. History of hypertension -medications to be added on as his condition improves and if blood pressure increases. Will continue to monitor. DVT/VTE Risk/Contraindication: Risk Factor Score Per Nursin RFS Level Per Nursing on Admit: 4+=Very High ISI SENA MD Aug 17, 2017 07:31
--- NOTE | 2017-08-17 07:39 | Discharge Summary ---
Diagnosis/Chief Complaint Date of Admission Aug 14, 2017 at 23:50 Date of Discharge August 17, 2017 Discharge Date: Aug 17, 2017 Discharge Time: 07:40 Admission Diagnosis Admission Diagnosis 1. Dehydration secondary to nausea and vomiting. Questionable enteritis but there is no diarrhea 2. Dysphagia times last 5 weeks. Etiology at this point needs to be further evaluated. 3. Recent urosepsis and currently being treated for UTI with Levaquin 4. Status post cervical neck surgery 5 weeks ago 5. History of hypertension Discharge Diagnosis 1. Dehydration secondary to nausea and vomiting. Questionable enteritis but there is no diarrhea 2. Dysphagia--following a recent cervical neck surgery 3. Urinary tract infection 4. Status post cervical neck surgery 5 weeks ago 5. History of hypertension Reason Hospital Visit 81-year-old male admitted through [facility] emergency department in the morning of August 15, 2017 after suffering from nausea and vomiting He is currently a resident of [facility] and he apparently had an episode of vomiting a large amount of fluids Patient is currently resident of [facility] having a cervical neck surgery 5 weeks ago and suffering from dysphagia following the procedure. It is not exactly clear why he has not been able to swallow. He has been followed by speech therapy and undergoing exercises for swallowing He has failed multiple attempts at swallow study. Currently he is not with any cough or any shortness of breath. He does have both a PEG tube for feeding as well as Manzano catheter for urinary collection. He was recently in the hospital after suffering from urosepsis and he was taking Levaquin that was being crushed and placed in the PEG tube. Discharge Summary Hospital Course Hospital Course 1. Dehydration secondary to nausea and vomiting. Questionable enteritis but there is no diarrhea -patient to receive IV fluids he has ed 2 L in the emergency department prior to fourth medical. -He will continue with 180 cc per hour and then backed off to 125 cc per hour 08/17 -IV fluids were discontinued by himself yesterday. I spoke with patient's daughter as of August 16 and she was informed that he would be going back to [facility] on the . We'll continue to monitor his intake and output outpatient. 2. Dysphagia times last 5 weeks. Etiology at this point needs to be further evaluated. -patient to be arranged hopefully for complete evaluation at [facility]. I spoke with his daughter Marley and she agrees with plan. He has had ENT direct evaluation with bedside laryncope. Apparently the vocal cords were noted to be functioning normally. 08/17 - triage center had reviewed all of his information and recommended that he continue with speech therapy. This may take up to 3, 6 or even 12 months to gain swallow reflex. There is even the possibility of not being able to swallow. 3. Recent urosepsis and currently being treated for UTI with Levaquin -Patient's urine analysis appears to be better by today's evaluation. 08/17 -Upon transfer back to [facility] he will not be placed on antibiotics. It appears he has had adequate treatment. 4. Status post cervical neck surgery 5 weeks ago -Patient has not had follow-up with orthopedic surgeon as of yet according to his daughter Marley. I believe he will be evaluated by orthopedics sometime within the next few weeks. 5. History of hypertension -medications to be added on as his condition improves and if blood pressure increases. Will continue to monitor. Labs Laboratory Tests 08/14/17 22:22: White Blood Count 12.5H, Red Blood Count 3.84L, Hemoglobin 11.7L, Hematocrit 34L , Mean Platelet Volume 10.9H, Neutrophils (%) (Auto) 78H, Lymphocytes (%) (Auto ) 10L, Neutrophils # (Auto) 9.8H, Monocytes # (Auto) 1.3H, Sodium Level 130L, Carbon Dioxide Level 20L, Blood Urea Nitrogen 35H, Glucose Level 120H, Aspartate Amino Transf (AST/SGOT) 40H, Albumin 3.1L 08/14/17 22:53: Urine Color AMBERH, Urine Specific [place] 1.015L, Urine Protein 3+H, Urine Leukocyte Esterase 1+H, Urine RBC (Auto) 1+H, Urine Mucus SMALLH 08/15/17 06:17: Red Blood Count 3.73L, Hemoglobin 11.6L, Hematocrit 34L, Mean Platelet Volume 11.3H, Neutrophils (%) (Auto) 84H, Lymphocytes (%) (Auto) 9L, Neutrophils # ( Auto) 9.2H, Sodium Level 133L, Carbon Dioxide Level 20L, Blood Urea Nitrogen 31H , Glucose Level 141H Procedures None. Discharge Physical Examination Allergies: Coded Allergies: No Known Drug Allergies (Unverified , 10/25/12) Vitals & I&Os Vital Signs Date Time Temp Pulse Resp B/P (MAP) Pulse Ox O2 Delivery O2 Flow Rate FiO2 08/17/17 00:00 99.5 73 19 134/72 (92) 95 Room Air General Appearance: No Acute Distress Respiratory: Clear to Auscultation Cardiovascular: Regular Rate (With occasional ectopy) Abdominal: Soft Skin: No Breakdown Discharge Home Medications Reviewed and agree with Discharge Medication list on patient's Discharge Instruction sheet Instructions to Patient/Family Please see electronic discharge instructions given to patient. Clinical Quality Measures DVT/VTE Risk/Contraindication: Risk Factor Score Per Nursin RFS Level Per Nursing on Admit: 4+=Very High ISI SENA MD Aug 17, 2017 07:39
--- NOTE | 2017-08-17 07:43 | Discharge Inst-Skilled Nursing ---
Discharge Inst-Skilled NF Patient Instructions Patient Problems: Dysphagia, PEG tube feedings, at risk for urinary tract infections Patient Instructions: Feedings will be with Jevity 237 mL given 5 times daily followed by 200 mL water Consult/Follow Up/Orders Follow Up Appt.: Dr Sena within 1 week Skilled NF Admit to: Via [facility] Certification (SNF) I certify that SNF services are required to be given on an inpatient basis because of the above named patient's need for [facility] care on a continuing basis for the conditions(s) for which he/she was receiving inpatient hospital services prior to his/her transfer to the SNF. Long Term Facility Order: Nursing Services, Asphalt Spreader Operator-Evaluate & Treat, Physical Therapy-Evaluate & Treat, Speech Language-Evaluate & Treat Daily Activity as Tolerated: Yes New & Resume Previous Orders Isi Sena Aug 17, 2017 07:42 ISI SENA MD Aug 17, 2017 07:43
[2017-08-17 08:00] VITALS: BP 131/67
[2017-08-17] MEDS: FAMOTIDINE 20 MG (PEPCID) TABLET PEG SCH (09:01)
[2017-08-17] MEDS: meTOprolol TARTRATE 50 MG (LOPRESSOR) TAB PEG SCH (09:03)
[2017-08-17 15:50] VITALS: BP 131/67
--- NOTE | 2017-08-21 15:22 | History & Physicial ---
History of Present Illness History of Present Illness Reason for visit/HPI To undergo replacement of the PEG tube that has been pulled out by the patient, while in the senior living, under anesthetic. Date of Admission Aug 21, 2017 at 15:50 pm Date Seen by Provider: Aug 18, 2017 Time Seen by Provider: 15:00 I consulted on this patient on 08/21/17 15:19 Attending Physician Bipin Baldwin MD Admitting Physician Bipin Baldwin MD Consult Allergies and Home Medications Allergies Coded Allergies: No Known Drug Allergies (Unverified , 10/25/12) Home Medications Acetaminophen 325 Mg Tablet, 650 MG PO Q4H PRN for TEMPATURE OR MILD PAIN, ( Reported) Aspirin 81 Mg Tab.chew, 162 MG PEG DAILY, (Reported) TAKE 2 (81MG) TABS Dorzolamide HCl/Timolol Maleat 10 Ml Drops, 1 DROP OU BID, (Reported) Famotidine 20 Mg Tablet, 20 MG PEG BID, (Reported) Glycerin/Propylene Glycol 30 Ml Drops, 1 DROP OU QID PRN for DRY EYES, (Reported ) Lactose-Reduced Food/Fiber 237 Ml Liquid, 237 ML PEG 5XD, (Reported) Levothyroxine Sodium 88 Mcg Tablet, 88 MCG PEG DAILY, (Reported) Loteprednol Etabonate 5 Gm Drops.gel, 1 DROP OD 1800, (Reported) Magnesium Hydroxide 400 Mg/5 Ml Oral.susp, 30 ML PEG DAILY PRN for CONSTIPATION- 7TH LINE, (Reported) Melatonin 3 Mg Tablet, 3 MG PO HS, (Reported) Metoprolol Succinate 100 Mg Tab.er.24h, 100 MG PEG DAILY, (Reported) HOLD AND NOTIFY PHYSICIAN FOR SYSTOLIC LESS THAN 100 AND OR DIASTOLIC LESS THAN 60. HOLD AND NOTIFY PHYSICIAN FOR PULSE LESS THAN OR EQUAL TO 60 Tramadol HCl 50 Mg Tablet, 50 MG PO Q6H PRN for PAIN-MODERATE, (Reported) Patient Home Medication List Home Medication List Reviewed: Yes Past Mkjwvap-Anjthr-Amrgmx Hx Patient Social History Marrital Status: Employed/Student: retired Alcohol Use: Denies Use Recreational Drug Use: No Smoking Status: Former Smoker Former Smoker, Quit: Mar 11, 1989 Type Used: Cigarettes Physical Abuse Screen: No Sexual Abuse: No Recent Foreign Travel: No Contact w/other who traveled: No Recent Hopitalizations: No Recent Infectious Disease Expo: No Immunizations Up To Date Date of Pneumonia Vaccine: Nov 12, 2015 Date of Influenza Vaccine: Dec 06, 2015 Seasonal Allergies Seasonal Allergies: No Surgeries Yes (CORNEA TRANSPLANT, MASTOIDECTOMY, eyelid reduction, L TKR, neck, PEG tube) Gallbladder, Joint Replacement, Orthopedic Respiratory No Cardiovascular Yes (STENTS X2-LAST ONE COUPLE YEARS AGO) Coronary Artery Disease, High Cholesterol, Hypertension Neurological Yes (dysphagia) Reproductive System Hx Reproductive Disorders: No Sexually Transmitted Disease: No HIV/AIDS: No Genitourinary Yes (joe cath since having sx on cervical spin for stenosis) UTI-Chronic Gastrointestinal Yes (peg tube placement since having sx on cervical spine for stenosis) Chronic Constipation Musculoskeletal Yes (spinal stenosis, ) Arthritis, Chronic Back Pain Endocrine History of Endocrine Disorders: No Endocrine Disorders: Hypothyroidsim HEENT History of HEENT Disorders: Yes HEENT Disorders: Glaucoma Loss of Vision: Bilateral Hearing Impairment: Denies Cancer No Psychosocial History of Psychiatric Problem: No Integumentary History of Skin or Integumenta: No Blood Transfusions History of Blood Disorders: No Adverse Reaction to a Blood Tr: No Family Medical History Family Hx: LUNG CANCER G8 BROTHER Myocardial infarction 19 MOTHER Constitutional: weakness EENTM: see HPI Respiratory: see HPI Cardiovascular: no symptoms reported Gastrointestinal: see HPI Genitourinary: no symptoms reported Musculoskeletal: no symptoms reported Skin: no symptoms reported Physical Exam Vital Signs Vital Signs - First Documented 08/15/17 04:05 Temp 98.2 Pulse 83 Resp 16 B/P (MAP) 163/70 (101) Pulse Ox 94 O2 Delivery Room Air Capillary Refill : Less Than 3 Seconds General Appearance: No Apparent Distress Respiratory: Lungs Clear Cardiovascular: Regular Rate, Rhythm Gastrointestinal: Soft, Other Comments Slightly combative and uncooperative. Point tenderness around the PEG tube site Assessment/Plan Assessment and Plan Gentleman with aspiration following cervical spine surgery. I have explicitly discussed the procedure of replacing the PEG tube under endoscopic guidance, involving the anesthesia providers. The tube would be sutured to the anterior abdominal wall to minimize further risk of being pulled out by the patient Admission Diagnosis Admission Status: Other (Outpt Proc) Clinical Quality Measures DVT/VTE Risk/Contraindication: Risk Factor Score Per Nursin RFS Level Per Nursing on Admit: 4+=Very High REBA AHUJA MD Aug 21, 2017 3:22 pm
[2017-08-22] MEDS ORDERED: LORA1TAB PEG (09:06)
[2017-08-22] MEDS ORDERED: ZIPR20CA23 PO (12:49)
== END 2017-08-17 07:41 | disposition home or self-care (01) ==
LOC: EDUNIT# 21:29 → ER 21:30 → UNDOADMOB 23:00 → 4TH 23:00
PROVIDERS: ADMIT Family Medicine; ATTEND Family Medicine
DX: E86.0 Dehydration (principal); R11.2 Nausea with vomiting, unspecified; R13.10 Dysphagia, unspecified; T83.511A Infection and inflammatory reaction due to indwelling urethral catheter, initial encounter; N39.0 Urinary tract infection, site not specified; I10 Essential (primary) hypertension
CPT/HCPCS: 36415; 71045; 71046; 74018; 80048; 80053; 81000; 83605; 83735; 85025; 85610; 85730; 87040; 96361; 96374; 96375; G0378

== ENCOUNTER → 2017-08-18 | Day surgery (SDC) | payer MEDICARE, OTHER ==
[~2017-08-18] MED LIST changes: +LORA1TAB PEG; +METO50TA15 PEG; +ZIPR20CA23 PO; +morphine INJ 10 MG/ML 1ML (SYR OR VIAL) ONE
--- OUTSIDE RECORDS SUMMARY | 2017-08-18 13:24 | XMS REPORT | Continuity of Care Document ---
Author Author [facility] Organization [facility] Address Unknown Phone Unavailable Allergies Active Description Code Type Severity Reaction Onset Reported/Identified Relationship to Patient Clinical Status Yes No Known Drug Allergies [id number] Drug Allergy Unknown N/A 10/25/2012 Medications There [...] FACP CCDS Ot 414.01 CORONARY ATHEROSCLEROSIS OF [place] CORON 05/01/2013 KEZIA MORALES MD, FACC FACP [...] FACP CCDS Ot 414.01 CORONARY ATHEROSCLEROSIS OF [place] CORON 06/19/2013 ANDREW ASTORGA FACC ALI FACP CCDS Ot 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 [place]CIF[place] 06/19/2013 ANDREW FERREIRA, KEZIA FERREIRAP CCDS Ot 426.4 RT BUNDLE BRANCH BLOCK 06/19/2013 ANDREW ASTORGA FACC, KEZIA FACP CCDS Ot 585.3 CHRONIC KIDNEY DISEASE, STAGE III (MODER 06/19/2013 ANDREW ASTORGA FACC, KEZIA FACP CCDS Ot 786.59 CHEST PAIN NEC 06/19/2013 ANDREW ASTORGA FACC, KE[facility] Ot V15.82 HISTORY OF TOBACCO USE 06/19/2013 ANDREW ASTORGA FACC, KEZIA FACP CCDS Ot V45.82 PERCUTANEOUS TRANSLUM CORON ANGIOPLASTY 06/19/2013 ANDREW ASTORGA FACC, KEZIA FACP CCDS Ot V58.63 LONG-TERM(CURRENT)USE OF ANTIPLATELET/AN 06/19/2013 ANDREW ASTORGA FACC, KEZIA [facility] CCD[facility] Ot V58.69 OTH MED,LT,CURRENT USE [...] OTHER SPECIFIED SURGICAL A 10/19/2015 CHANCE CARRENO GRAPHIC SPECIALIST Ot E78.4 OTHER HYPERLIPIDEMIA 10/19/2015 CHANCE CARRENO GRAPHIC SPECIALIST Ot I10 ESSENTIAL (PRIMARY) HYPERTENSION 10/19/2015 CHANCE CARRENO GRAPHIC SPECIALIST Ot I25.10 ATHSCL HEART DISEASE OF [place] CORONARY 10/19/2015 CHANCE CARRENO GRAPHIC SPECIALIST Ot I65.23 OCCLUSION AND STENOSIS OF BILATERAL [...] SPECIFIED SURGICAL A 10/19/2015 BAIMA, CHANCE L GRAPHIC SPECIALIST Ot E78.4 OTHER HYPERLIPIDEMIA 10/19/2015 BAIMA, CHANCE L GRAPHIC SPECIALIST Ot I10 ESSENTIAL (PRIMARY) HYPERTENSION 10/19/2015 FLAKOMA, CHANCE L GRAPHIC SPECIALIST Ot I25.10 ATHSCL HEART DISEASE OF [place] CORONARY 10/19/2015 BAIMA, CHANCE L GRAPHIC SPECIALIST Ot 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 10/19/2015 BAIMA, CHANCE L GRAPHIC SPECIALIST Ot I25.10 ATHSCL HEART DISEASE OF [place] CORONARY 10/19/2015 BAIMA, CHANCE L GRAPHIC SPECIALIST Ot E78.4 OTHER HYPERLIPIDEMIA 10/19/2015 BAIMA, CHANCE L GRAPHIC SPECIALIST Ot I10 ESSENTIAL (PRIMARY) HYPERTENSION 10/19/2015 BAIMA, CHANCE L GRAPHIC SPECIALIST Ot I25.10 ATHSCL HEART DISEASE OF [place] CORONARY 10/19/2015 BAIMA, CHANCE L GRAPHIC SPECIALIST Ot 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 10/20/2015 BAIMA, CHANCE L GRAPHIC SPECIALIST Ot I25.10 ATHSCL HEART DISEASE OF [place] CORONARY 10/21/2015 BAIMA, CHANCE L GRAPHIC SPECIALIST Ot E78.4 OTHER HYPERLIPIDEMIA 10/21/2015 BAIMA, CHANCE L GRAPHIC SPECIALIST Ot I10 ESSENTIAL (PRIMARY) HYPERTENSION 10/21/2015 BAIMA, CHANCE L GRAPHIC SPECIALIST Ot I25.10 ATHSCL HEART DISEASE OF [place] CORONARY 10/21/2015 BAIMA, CHANCE L GRAPHIC SPECIALIST Ot 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 10/23/2015 WAICHANCE Mary GRAPHIC SPECIALIST Ot E78.4 OTHER HYPERLIPIDEMIA 10/23/2015 FLAKOMA CHANCE L GRAPHIC SPECIALIST Ot I10 ESSENTIAL (PRIMARY) HYPERTENSION 10/23/2015 WAI CHANCE L GRAPHIC SPECIALIST Ot I25.10 ATHSCL HEART DISEASE OF [place] CORONARY 10/23/2015 CHANCE CARRENO GRAPHIC SPECIALIST Ot I65.23 OCCLUSION AND STENOSIS OF BILATERAL [...] UNILATERAL PRIMARY OSTEOARTHRITIS, LEFT 10/27/2015 RAIN ASTORGA, MAE Herbert Ot R53.83 OTHER FATIGUE 10/27/2015 AME [...] OTHER SPECIFIED SURGICAL A 10/27/2015 CHANCE CARRENO GRAPHIC SPECIALIST Ot E78.4 OTHER HYPERLIPIDEMIA 10/27/2015 WAICHANCE Mary GRAPHIC SPECIALIST Ot I10 ESSENTIAL (PRIMARY) HYPERTENSION 10/27/2015 CHANCE CARRENO GRAPHIC SPECIALIST Ot I25.10 ATHSCL HEART DISEASE OF [place] CORONARY 10/27/2015 CHANCE CARRENO GRAPHIC SPECIALIST Ot 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 10/27/2015 FLAKOCHANCE FUNG GRAPHIC SPECIALIST Ot E78.4 OTHER HYPERLIPIDEMIA 10/27/2015 BAIMACHANCE L GRAPHIC SPECIALIST Ot I10 ESSENTIAL (PRIMARY) HYPERTENSION 10/27/2015 CHANCE CARRENO L GRAPHIC SPECIALIST Ot I25.10 ATHSCL HEART DISEASE OF [place] CORONARY 10/27/2015 CHANCE CARRENO GRAPHIC SPECIALIST Ot I65.23 OCCLUSION AND STENOSIS OF BILATERAL [...] SPECIFIED SURGICAL A 10/27/2015 WAI CHANCE Mary GRAPHIC SPECIALIST Ot E78.4 OTHER HYPERLIPIDEMIA 10/27/2015 WAICHANCE L GRAPHIC SPECIALIST Ot I10 ESSENTIAL (PRIMARY) HYPERTENSION 10/27/2015 WAI CHANCE L GRAPHIC SPECIALIST Ot I25.10 ATHSCL HEART DISEASE OF [place] CORONARY 10/27/2015 BAIMACHANCE L GRAPHIC SPECIALIST Ot 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 10/27/2015 BAIMA, CHANCE L GRAPHIC SPECIALIST Ot E78.4 OTHER HYPERLIPIDEMIA 10/27/2015 BAIMA, CHANCE L GRAPHIC SPECIALIST Ot I10 ESSENTIAL (PRIMARY) HYPERTENSION 10/27/2015 BAIMA, CHANCE L GRAPHIC SPECIALIST Ot I25.10 ATHSCL HEART DISEASE OF [place] CORONARY 10/27/2015 BAIMA CHANCE L GRAPHIC SPECIALIST Ot 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 11/06/2015 BAIMACHANCE L GRAPHIC SPECIALIST Ot E78.4 OTHER HYPERLIPIDEMIA 11/06/2015 BAIMA, CHANCE L GRAPHIC SPECIALIST Ot I10 ESSENTIAL (PRIMARY) HYPERTENSION 11/06/2015 BAIMA, CHANCE L GRAPHIC SPECIALIST Ot I25.10 ATHSCL HEART DISEASE OF [place] CORONARY 11/06/2015 BAIMA CHANCE L GRAPHIC SPECIALIST Ot 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 11/13/2015 BAIMA CHANCE L GRAPHIC SPECIALIST Ot E78.4 OTHER HYPERLIPIDEMIA 11/13/2015 BAIMA, CHANCE L GRAPHIC SPECIALIST Ot I10 ESSENTIAL (PRIMARY) HYPERTENSION 11/13/2015 BAIMA, CHANCE L GRAPHIC SPECIALIST Ot I25.10 ATHSCL HEART DISEASE OF [place] CORONARY 11/13/2015 BAIMAYARIELCHANCE L GRAPHIC SPECIALIST Ot I65.23 OCCLUSION AND STENOSIS OF BILATERAL [...] SPECIFIED SURGICAL A 11/19/2015 BAIMA, CHANCE L GRAPHIC SPECIALIST Ot E78.4 OTHER HYPERLIPIDEMIA 11/19/2015 BAIMA, CHANCE L GRAPHIC SPECIALIST Ot I10 ESSENTIAL (PRIMARY) HYPERTENSION 11/19/2015 BAIMA, CHANCE L GRAPHIC SPECIALIST Ot I25.10 ATHSCL HEART DISEASE OF [place] CORONARY 11/19/2015 BAIMA, CHANCE L GRAPHIC SPECIALIST Ot 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 11/19/2015 BAIMA, CHANCE L GRAPHIC SPECIALIST Ot E78.4 OTHER HYPERLIPIDEMIA 11/19/2015 BAIMA, CHANCE L GRAPHIC SPECIALIST Ot I10 ESSENTIAL (PRIMARY) HYPERTENSION 11/19/2015 BAIMA, CHANCE L GRAPHIC SPECIALIST Ot I25.10 ATHSCL HEART DISEASE OF [place] CORONARY 11/19/2015 BAIMA, CHANCE L GRAPHIC SPECIALIST Ot 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 11/20/2015 BAIMA, CHANCE L GRAPHIC SPECIALIST Ot E78.4 OTHER HYPERLIPIDEMIA 11/20/2015 BAIMA, CHANCE L GRAPHIC SPECIALIST Ot I10 ESSENTIAL (PRIMARY) HYPERTENSION 11/20/2015 BAIMA, CHANCE L GRAPHIC SPECIALIST Ot I25.10 ATHSCL HEART DISEASE OF [place] CORONARY 11/20/2015 BAIMA, CHANCE L GRAPHIC SPECIALIST Ot 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 11/23/2015 BAIMA, CHANCE L GRAPHIC SPECIALIST Ot E78.4 OTHER HYPERLIPIDEMIA 11/23/2015 BAIMA, CHANCE L GRAPHIC SPECIALIST Ot I10 ESSENTIAL (PRIMARY) HYPERTENSION 11/23/2015 BAIMA, CHANCE L GRAPHIC SPECIALIST Ot I25.10 ATHSCL HEART DISEASE OF [place] CORONARY 11/23/2015 BAIMA, CHANCE L GRAPHIC SPECIALIST Ot 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 12/11/2015 FLAKOCHANCE FUNG GRAPHIC SPECIALIST Ot E78.4 OTHER HYPERLIPIDEMIA 12/11/2015 CHANCE CARRENO GRAPHIC SPECIALIST Ot I10 ESSENTIAL (PRIMARY) HYPERTENSION 12/11/2015 CHANCE CARRENO GRAPHIC SPECIALIST Ot I25.10 ATHSCL HEART DISEASE OF [place] CORONARY 12/11/2015 CHANCE CARRENO GRAPHIC SPECIALIST Ot I65.23 OCCLUSION AND STENOSIS OF BILATERAL [...] OTHER SPECIFIED SURGICAL A 03/15/2016 CHANCE CARRENO GRAPHIC SPECIALIST Ot E78.4 OTHER HYPERLIPIDEMIA 03/15/2016 BAIMA, CHANCE L GRAPHIC SPECIALIST Ot I10 ESSENTIAL (PRIMARY) HYPERTENSION 03/15/2016 BAIMA, CHANCE L GRAPHIC SPECIALIST Ot I25.10 ATHSCL HEART DISEASE OF [place] CORONARY 03/15/2016 BAIMA, CHANCE L GRAPHIC SPECIALIST Ot 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 03/15/2016 BAIMA, CHANCE L GRAPHIC SPECIALIST Ot E78.4 OTHER HYPERLIPIDEMIA 03/15/2016 BAIMA, CHANCE L GRAPHIC SPECIALIST Ot I10 ESSENTIAL (PRIMARY) HYPERTENSION 03/15/2016 BAIMA, CHANCE L GRAPHIC SPECIALIST Ot I25.10 ATHSCL HEART DISEASE OF [place] CORONARY 03/15/2016 BAIMA, CHANCE L GRAPHIC SPECIALIST Ot 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 03/15/2016 BAIMA, CHANCE L GRAPHIC SPECIALIST Ot E78.4 OTHER HYPERLIPIDEMIA 03/15/2016 BAIMA, CHANCE L GRAPHIC SPECIALIST Ot I10 ESSENTIAL (PRIMARY) HYPERTENSION 03/15/2016 BAIMA, CHANCE L GRAPHIC SPECIALIST Ot I25.10 ATHSCL HEART DISEASE OF [place] CORONARY 03/15/2016 BAIMA, CHANCE L GRAPHIC SPECIALIST Ot 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 03/15/2016 MAGDIEL MARTINEZ MD Ot K44.9 DIAPHRAGMATIC HERNIA WITHOUT OBSTRUCTION 03/15/2016 MICHELLE ASTORGA, MAGDIEL Berger Ot K92.1 MELENA 03/15/2016 MAGDIEL MARTINEZ MD Ot Z79.02 SIGNAL PERSON (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 03/15/2016 MAGDIEL MARTINEZ MD Ot Z79.82 ASSISTED (CURRENT) USE OF ASPIRIN 03/17/2016 MAGDIEL MARTINEZ MD Ot K44.9 DIAPHRAGMATIC HERNIA WITHOUT OBSTRUCTION 03/17/2016 MAGDIEL MARTINEZ MD Ot K92.1 MELENA 03/17/2016 MAGDIEL MARTINEZ MD Ot Z79.02 SIGNAL PERSON (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 03/17/2016 MAGDIEL MARTINEZ MD Ot Z79.82 ASSISTED (CURRENT) USE OF ASPIRIN 08/02/2016 ANDREW ASTORGA [...] Ot M17.12 UNILATERAL PRIMARY OSTEOARTHRITIS, LEFT 08/02/2016 RANI ASTORGA, AME Herbert Ot R53.83 OTHER FATIGUE [...] SPECIFIED SURGICAL A 08/02/2016 BAIMA, CHANCE L GRAPHIC SPECIALIST Ot E78.4 OTHER HYPERLIPIDEMIA 08/02/2016 BAIMA, CHANCE L GRAPHIC SPECIALIST Ot I10 ESSENTIAL (PRIMARY) HYPERTENSION 08/02/2016 BAIMA, CHANCE L GRAPHIC SPECIALIST Ot I25.10 ATHSCL HEART DISEASE OF [place] CORONARY 08/02/2016 BAIMA, CHANCE L GRAPHIC SPECIALIST Ot 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 08/02/2016 BAIMA, CHANCE L GRAPHIC SPECIALIST Ot E78.4 OTHER HYPERLIPIDEMIA 08/02/2016 BAIMA, CHANCE L GRAPHIC SPECIALIST Ot I10 ESSENTIAL (PRIMARY) HYPERTENSION 08/02/2016 BAIMA, CHANCE L GRAPHIC SPECIALIST Ot I25.10 ATHSCL HEART DISEASE OF [place] CORONARY 08/02/2016 BAIMA, CHANCE L GRAPHIC SPECIALIST Ot 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 08/02/2016 BAIMA, CHANCE L GRAPHIC SPECIALIST Ot E78.4 OTHER HYPERLIPIDEMIA 08/02/2016 BAIMA, CHANCE L GRAPHIC SPECIALIST Ot I10 ESSENTIAL (PRIMARY) HYPERTENSION 08/02/2016 BAIMA, CHANCE L GRAPHIC SPECIALIST Ot I25.10 ATHSCL HEART DISEASE OF [place] CORONARY 08/02/2016 WAI CHANCE L GRAPHIC SPECIALIST Ot I65.23 OCCLUSION AND STENOSIS OF BILATERAL [...] CCDS Ot I25.10 ATHSCL HEART DISEASE OF [place] CORONARY 12/14/2016 ANDREW ASTORGA FACC, KEZIA FACP CCDS Ot E78.4 OTHER HYPERLIPIDEMIA 12/14/2016 ANDREW ASTORGA FACC, ALI FACP CCDS Ot I12.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 12/14/2016 ANDREW ASTORGA FACC, ALI FACP CCDS Ot I25.10 ATHSCL HEART DISEASE OF [place] CORONARY 12/14/2016 ANDREW ASTORGA FACC, KEZIA FACP [...] CCDS Ot I25.10 ATHSCL HEART DISEASE OF [place] CORONARY 01/03/2017 ANDREW ASTORGA FACC, ALI FACP [...] CCDS Ot I25.10 ATHSCL HEART DISEASE OF [place] CORONARY 01/10/2017 ANDREW ASTORGA FACC, ALI FACP [...] CCDS Ot I25.10 ATHSCL HEART DISEASE OF [place] CORONARY 06/21/2017 ANDREW ASTORGA FACC, ALI FACP [...] CCDS Ot I25.10 ATHSCL HEART DISEASE OF [place] CORONARY 07/04/2017 ANDREW ASTORGA FACC, ALI FACP [...] CCDS Ot I25.10 ATHSCL HEART DISEASE OF [place] CORONARY 07/10/2017 ANDREW ASTORGA FACC, ALI FACP [...] MD Ot I25.10 ATHSCL HEART DISEASE OF [place] CORONARY 07/14/2017 AMA MOON MD Ot M19.91 [...] MD Ot I25.10 ATHSCL HEART DISEASE OF [place] CORONARY 07/17/2017 AMA MOON MD Ot M19.91 [...] MD Ot I25.10 ATHSCL HEART DISEASE OF [place] CORONARY 07/17/2017 AMA MOON MD Ot M19.91 [...] MD, Ot I25.10 ATHSCL HEART DISEASE OF [place] CORONARY 07/17/2017 AMA MOON MD Ot M19.91 [...] MD Ot I25.10 ATHSCL HEART DISEASE OF [place] CORONARY 07/18/2017 AMA MOON MD Ot M19.91 [...] MD Ot I10 ESSENTIAL (PRIMARY) HYPERTENSION 07/18/2017 AAM MOON MD Ot I25.10 ATHSCL HEART DISEASE OF [place] CORONARY 07/18/2017 AMA MOON MD Ot J39.2 [...] SPECIFIED SURGICAL A 07/19/2017 BAIMA, CHANCE L GRAPHIC SPECIALIST Ot E78.4 OTHER HYPERLIPIDEMIA 07/19/2017 BAIMA, CHANCE L GRAPHIC SPECIALIST Ot I10 ESSENTIAL (PRIMARY) HYPERTENSION 07/19/2017 BAIMA, CHANCE L GRAPHIC SPECIALIST Ot I25.10 ATHSCL HEART DISEASE OF [place] CORONARY 07/19/2017 BAIMA, CHANCE L GRAPHIC SPECIALIST Ot 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 07/19/2017 BAIMA, CHANCE L GRAPHIC SPECIALIST Ot E78.4 OTHER HYPERLIPIDEMIA 07/19/2017 BAIMA, CHANCE L GRAPHIC SPECIALIST Ot I10 ESSENTIAL (PRIMARY) HYPERTENSION 07/19/2017 BAIMA, CHANCE L GRAPHIC SPECIALIST Ot I25.10 ATHSCL HEART DISEASE OF [place] CORONARY 07/19/2017 BAIMA, CHANCE L GRAPHIC SPECIALIST Ot 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 07/19/2017 BAIMA, CHANCE L GRAPHIC SPECIALIST Ot E78.4 OTHER HYPERLIPIDEMIA 07/19/2017 BAIMA, CHANCE L GRAPHIC SPECIALIST Ot I10 ESSENTIAL (PRIMARY) HYPERTENSION 07/19/2017 BAIMA, CHANCE L GRAPHIC SPECIALIST Ot I25.10 ATHSCL HEART DISEASE OF [place] CORONARY 07/19/2017 BAIMA, CHANCE L GRAPHIC SPECIALIST Ot 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 07/19/2017 YENY FIELD DO Ot M48.02 SPINAL STENOSIS, CERVICAL REGION 07/19/2017 YENY FIELD DO Ot M50.20 OTHER CERVICAL DISC DISPLACEMENT, UNSP C 07/19/2017 YENY FIELD DO Ot M54.6 PAIN IN THORACIC SPINE 07/19/2017 ANDREW ASTORGA FACC, KEZIA FACP CCDS Ot E78.4 OTHER HYPERLIPIDEMIA 07/19/2017 ANDREW ASTORGA FACC, KEZIA FACP CCDS Ot I12.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 07/19/2017 ANDREW ASTORGA FACC, ALI FACP CCDS Ot I25.10 ATHSCL HEART DISEASE OF [place] CORONARY 07/19/2017 ANDREW ASTORGA FACC, ALI FACP CCDS Ot 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 07/19/2017 ANDREW ASTORGA FACC, ALI FACP CCDS Ot N18.3 CHRONIC KIDNEY DISEASE, STAGE 3 (MODERAT 07/19/2017 REJI HAGER APRN Ot E03.9 HYPOTHYROIDISM, UNSPECIFIED 07/19/2017 REJI HAGER APRN Ot I10 ESSENTIAL (PRIMARY) HYPERTENSION 07/19/2017 REJI HAGER APRN Ot 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 07/19/2017 REJI HAGER APRN Ot Z79.82 ASSISTED (CURRENT) USE OF ASPIRIN 07/19/2017 REJI HAGER APRN Ot Z80.0 FAMILY HISTORY OF MALIGNANT NEOPLASM OF 07/19/2017 REJI HAGER APRN Ot Z82.49 FAMILY HX OF ISCHEM HEART DIS AND OTH DI 07/19/2017 REJI HAGER APRN Ot Z87.19 PERSONAL HISTORY OF OTHER DISEASES OF TH 07/19/2017 REJI HAGER APRN Ot Z87.891 PERSONAL HISTORY OF NICOTINE DEPENDENCE 07/19/2017 REJI HAGER APRN Ot 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 07/19/2017 REJI HAGER APRN Ot Z95.5 PRESENCE OF CORONARY ANGIOPLASTY IMPLANT 07/19/2017 REJI HAGER APRN Ot Z96.652 PRESENCE OF LEFT ARTIFICIAL KNEE JOINT 07/19/2017 REJI HAGER APRN Ot Z98.1 ARTHRODESIS STATUS 07/24/2017 REJI HAGER APRN Ot E03.9 HYPOTHYROIDISM, UNSPECIFIED 07/24/2017 REJI HAGER APRN Ot I10 ESSENTIAL (PRIMARY) HYPERTENSION 07/24/2017 REJI HAGER APRN Ot 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 07/24/2017 REJI HAGER APRN Ot Z79.82 ASSISTED (CURRENT) USE OF ASPIRIN 07/24/2017 REJI HAGER [...] Ot Z98.1 ARTHRODESIS STATUS 08/04/2017 ISI SENA MD, Ot A41.9 SEPSIS, UNSPECIFIED ORGANISM 08/04/2017 ISI SENA MD Ot E03.9 HYPOTHYROIDISM, UNSPECIFIED 08/04/2017 ISI SENA MD Ot E78.00 PURE HYPERCHOLESTEROLEMIA, UNSPECIFIED 08/04/2017 ISI SENA MD, Ot E86.0 DEHYDRATION 08/04/2017 ISI SENA MD, Ot H40.9 UNSPECIFIED GLAUCOMA 08/04/2017 ISI SENA MD, Ot I10 ESSENTIAL (PRIMARY) HYPERTENSION 08/04/2017 ISI SENA MD, Ot I25.10 ATHSCL HEART DISEASE OF [place] CORONARY 08/04/2017 ISI SENA MD Ot M19.91 PRIMARY OSTEOARTHRITIS, UNSPECIFIED SITE 08/04/2017 ISI SENA MD, Ot N28.9 DISORDER OF KIDNEY AND URETER, UNSPECIFI 08/04/2017 ISI SENA MD Ot N39.0 URINARY TRACT INFECTION, SITE NOT SPECIF 08/04/2017 ISI SENA MD, Ot R13.10 DYSPHAGIA, UNSPECIFIED 08/04/2017 ISI SENA MD, Ot R31.9 HEMATURIA, UNSPECIFIED 08/04/2017 ISI SENA MD Ot R45.1 RESTLESSNESS AND AGITATION 08/04/2017 ISI SENA MD Ot S37.30XA UNSPECIFIED INJURY OF URETHRA, INITIAL [...] Z96.652 PRESENCE OF LEFT ARTIFICIAL KNEE JOINT 08/08/2017 ISI SENA MD, Ot A41.9 SEPSIS, UNSPECIFIED ORGANISM 08/08/2017 ISI SENA MD, Ot E03.9 HYPOTHYROIDISM, UNSPECIFIED 08/08/2017 ISI SENA MD, Ot E78.00 PURE HYPERCHOLESTEROLEMIA, UNSPECIFIED 08/08/2017 ISI SENA MD, Ot E86.0 DEHYDRATION 08/08/2017 ISI SENA MD, Ot H40.9 UNSPECIFIED GLAUCOMA 08/08/2017 ISI SENA MD, Ot I10 ESSENTIAL (PRIMARY) HYPERTENSION 08/08/2017 ISI SENA MD, Ot I25.10 ATHSCL HEART DISEASE OF [place] CORONARY 08/08/2017 ISI SENA MD, Ot M19.91 PRIMARY OSTEOARTHRITIS, UNSPECIFIED SITE 08/08/2017 SII SENA MD, Ot N28.9 DISORDER OF KIDNEY AND URETER, UNSPECIFI 08/08/2017 ISI SENA MD, Ot N39.0 URINARY TRACT INFECTION, SITE NOT SPECIF 08/08/2017 ISI SENA MD, Ot R13.10 DYSPHAGIA, UNSPECIFIED 08/08/2017 ISI SENA MD, Ot R31.9 HEMATURIA, UNSPECIFIED 08/08/2017 ISI SENA MD, Ot R45.1 RESTLESSNESS AND AGITATION 08/08/2017 ISI SENA MD, Ot S37.39XA OTHER INJURY OF URETHRA, INITIAL ENCOUNT 08/08/2017 ISI SENA MD, Ot T83.511A I/I REACT D/T INDWELLING URETHRAL CATHET 08/08/2017 ISI SENA MD, Ot X58.XXXA EXPOSURE TO OTHER SPECIFIED FACTORS, INI 08/08/2017 ISI SENA MD, Ot Z87.891 PERSONAL HISTORY OF NICOTINE DEPENDENCE 08/08/2017 ISI SENA MD, Ot Z93.1 GASTROSTOMY STATUS 08/08/2017 ISI SENA MD, Ot 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 08/08/2017 ISI SENA MD, Ot Z95.5 PRESENCE OF CORONARY ANGIOPLASTY IMPLANT 08/08/2017 ISI SENA MD, Ot Z96.652 PRESENCE OF LEFT ARTIFICIAL KNEE JOINT 08/09/2017 ISI SENA MD, Ot A41.9 SEPSIS, UNSPECIFIED ORGANISM 08/09/2017 ISI SENA MD, Ot E03.9 HYPOTHYROIDISM, UNSPECIFIED 08/09/2017 ISI SENA MD Ot E78.00 PURE HYPERCHOLESTEROLEMIA, UNSPECIFIED 08/09/2017 ISI SENA MD Ot E86.0 DEHYDRATION 08/09/2017 ISI SENA MD, Ot H40.9 UNSPECIFIED GLAUCOMA 08/09/2017 ISI SENA MD, Ot I10 ESSENTIAL (PRIMARY) HYPERTENSION 08/09/2017 ISI SENA MD, Ot I25.10 ATHSCL HEART DISEASE OF [place] CORONARY 08/09/2017 ISI SENA MD, Ot M19.91 PRIMARY OSTEOARTHRITIS, UNSPECIFIED SITE 08/09/2017 ISI SENA MD, Ot N28.9 DISORDER OF KIDNEY AND URETER, UNSPECIFI 08/09/2017 ISI SENA MD, Ot N39.0 URINARY TRACT INFECTION, SITE NOT SPECIF 08/09/2017 ISI SENA MD, Ot R13.10 DYSPHAGIA, UNSPECIFIED 08/09/2017 ISI SENA MD, Ot R31.9 HEMATURIA, UNSPECIFIED 08/09/2017 ISI SENA MD, Ot R45.1 RESTLESSNESS AND AGITATION 08/09/2017 ISI SENA MD, Ot S37.39XA OTHER INJURY OF URETHRA, INITIAL ENCOUNT 08/09/2017 ISI SENA MD, Ot T83.511A I/I REACT D/T INDWELLING URETHRAL CATHET 08/09/2017 ISI SENA MD, Ot X58.XXXA EXPOSURE TO OTHER SPECIFIED FACTORS, INI 08/09/2017 ISI SENA MD, Ot Z87.891 PERSONAL HISTORY OF NICOTINE DEPENDENCE 08/09/2017 ISI SENA MD, Ot Z93.1 GASTROSTOMY STATUS 08/09/2017 ISI SENA MD, Ot 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 08/09/2017 ISI SENA MD, Ot Z95.5 PRESENCE OF CORONARY ANGIOPLASTY IMPLANT 08/09/2017 ISI SENA MD, Ot Z96.652 PRESENCE OF LEFT ARTIFICIAL KNEE JOINT 08/09/2017 ISI SENA MD, Ot A41.9 SEPSIS, UNSPECIFIED ORGANISM 08/09/2017 ISI SENA MD, Ot E03.9 HYPOTHYROIDISM, UNSPECIFIED 08/09/2017 ISI SENA MD, Ot E78.00 PURE HYPERCHOLESTEROLEMIA, UNSPECIFIED 08/09/2017 ISI SENA MD, Ot E86.0 DEHYDRATION 08/09/2017 ISI SENA MD, Ot H40.9 UNSPECIFIED GLAUCOMA 08/09/2017 ISI SENA MD, Ot I10 ESSENTIAL (PRIMARY) HYPERTENSION 08/09/2017 ISI SENA MD, Ot I25.10 ATHSCL HEART DISEASE OF [place] CORONARY 08/09/2017 ISI SENA MD, Ot M19.91 PRIMARY OSTEOARTHRITIS, UNSPECIFIED SITE 08/09/2017 ISI SENA MD, Ot N28.9 DISORDER OF KIDNEY AND URETER, UNSPECIFI 08/09/2017 ISI SENA MD, Ot N39.0 URINARY TRACT INFECTION, SITE NOT SPECIF 08/09/2017 ISI SENA MD, Ot R13.10 DYSPHAGIA, UNSPECIFIED 08/09/2017 ISI SENA MD, Ot R31.9 HEMATURIA, UNSPECIFIED 08/09/2017 ISI SENA MD, Ot R45.1 RESTLESSNESS AND AGITATION 08/09/2017 ISI SENA MD, Ot S37.39XA OTHER INJURY OF URETHRA, INITIAL ENCOUNT 08/09/2017 ISI SENA MD, Ot T83.511A I/I REACT D/T INDWELLING URETHRAL CATHET 08/09/2017 ISI SENA MD, Ot X58.XXXA EXPOSURE TO OTHER SPECIFIED FACTORS, INI 08/09/2017 ISI SENA MD, Ot Z87.891 PERSONAL HISTORY OF NICOTINE DEPENDENCE 08/09/2017 ISI SENA MD, Ot Z93.1 GASTROSTOMY STATUS 08/09/2017 ISI SENA MD, Ot 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 08/09/2017 ISI SENA MD, Ot Z95.5 PRESENCE OF CORONARY ANGIOPLASTY IMPLANT 08/09/2017 ISI SENA MD, Ot Z96.652 PRESENCE OF LEFT ARTIFICIAL KNEE JOINT 08/09/2017 ISI SENA MD, Ot A41.9 SEPSIS, UNSPECIFIED ORGANISM 08/09/2017 ISI SENA MD, Ot E03.9 HYPOTHYROIDISM, UNSPECIFIED 08/09/2017 ISI SENA MD, Ot E78.00 PURE HYPERCHOLESTEROLEMIA, UNSPECIFIED 08/09/2017 ISI SENA MD, Ot E86.0 DEHYDRATION 08/09/2017 ISI SENA MD, Ot H40.9 UNSPECIFIED GLAUCOMA 08/09/2017 ISI SENA MD, Ot I10 ESSENTIAL (PRIMARY) HYPERTENSION 08/09/2017 ISI SENA MD, Ot I25.10 ATHSCL HEART DISEASE OF [place] CORONARY 08/09/2017 ISI SENA MD, Ot M19.91 PRIMARY OSTEOARTHRITIS, UNSPECIFIED SITE 08/09/2017 ISI SENA MD, Ot N28.9 DISORDER OF KIDNEY AND URETER, UNSPECIFI 08/09/2017 ISI SENA MD, Ot N39.0 URINARY TRACT INFECTION, SITE NOT SPECIF 08/09/2017 ISI SENA MD, Ot R13.10 DYSPHAGIA, UNSPECIFIED 08/09/2017 ISI SENA MD, Ot R31.9 HEMATURIA, UNSPECIFIED 08/09/2017 ISI SENA MD, Ot R45.1 RESTLESSNESS AND AGITATION 08/09/2017 ISI SENA MD, Ot S37.39XA OTHER INJURY OF URETHRA, INITIAL ENCOUNT 08/09/2017 ISI SENA MD, Ot T83.511A I/I REACT D/T INDWELLING URETHRAL CATHET 08/09/2017 ISI SENA MD, Ot X58.XXXA EXPOSURE TO OTHER SPECIFIED FACTORS, INI 08/09/2017 ISI SENA MD, Ot Z87.891 PERSONAL HISTORY OF NICOTINE DEPENDENCE 08/09/2017 ISI SENA MD, Ot Z93.1 GASTROSTOMY STATUS 08/09/2017 ISI SENA MD, Ot 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 08/09/2017 ISI SENA MD, Ot Z95.5 PRESENCE OF CORONARY ANGIOPLASTY IMPLANT 08/09/2017 ISI SENA MD, Ot Z96.652 PRESENCE OF LEFT ARTIFICIAL KNEE JOINT 08/10/2017 ISI SENA MD, Ot A41.9 SEPSIS, UNSPECIFIED ORGANISM 08/10/2017 ISI SENA MD, Ot E03.9 HYPOTHYROIDISM, UNSPECIFIED 08/10/2017 ISI SENA MD, Ot E78.00 PURE HYPERCHOLESTEROLEMIA, UNSPECIFIED 08/10/2017 ISI SENA MD Ot E86.0 DEHYDRATION 08/10/2017 ISI SENA MD, Ot H40.9 UNSPECIFIED GLAUCOMA 08/10/2017 ISI SENA MD, Ot I10 ESSENTIAL (PRIMARY) HYPERTENSION 08/10/2017 ISI SENA MD, Ot I25.10 ATHSCL HEART DISEASE OF [place] CORONARY 08/10/2017 ISI SENA MD, Ot M19.91 PRIMARY OSTEOARTHRITIS, UNSPECIFIED SITE 08/10/2017 ISI SENA MD, Ot N28.9 DISORDER OF KIDNEY AND URETER, UNSPECIFI 08/10/2017 ISI SENA MD, Ot N39.0 URINARY TRACT INFECTION, SITE NOT SPECIF 08/10/2017 ISI SENA MD, Ot R13.10 DYSPHAGIA, UNSPECIFIED 08/10/2017 ISI SENA MD, Ot R31.9 HEMATURIA, UNSPECIFIED 08/10/2017 ISI SENA MD, Ot R45.1 RESTLESSNESS AND AGITATION 08/10/2017 ISI SENA MD, Ot S37.39XA OTHER INJURY OF URETHRA, INITIAL ENCOUNT 08/10/2017 ISI SENA MD, Ot T83.511A I/I REACT D/T INDWELLING URETHRAL CATHET 08/10/2017 ISI SENA MD, Ot X58.XXXA EXPOSURE TO OTHER SPECIFIED FACTORS, INI 08/10/2017 ISI SENA MD, Ot Z87.891 PERSONAL HISTORY OF NICOTINE DEPENDENCE 08/10/2017 ISI SENA MD, Ot Z93.1 GASTROSTOMY STATUS 08/10/2017 ISI SENA MD, Ot 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 08/10/2017 ISI SENA MD, Ot Z95.5 PRESENCE OF CORONARY ANGIOPLASTY IMPLANT 08/10/2017 ISI SENA MD, Ot Z96.652 PRESENCE OF LEFT ARTIFICIAL KNEE JOINT 08/10/2017 ISI SENA MD, Ot A41.9 SEPSIS, UNSPECIFIED ORGANISM 08/10/2017 ISI SENA MD, Ot E03.9 HYPOTHYROIDISM, UNSPECIFIED 08/10/2017 ISI SENA MD, Ot E78.00 PURE HYPERCHOLESTEROLEMIA, UNSPECIFIED 08/10/2017 ISI SENA MD, Ot E86.0 DEHYDRATION 08/10/2017 ISI SENA MD, Ot H40.9 UNSPECIFIED GLAUCOMA 08/10/2017 ISI SENA MD, Ot I10 ESSENTIAL (PRIMARY) HYPERTENSION 08/10/2017 ISI SENA MD, Ot I25.10 ATHSCL HEART DISEASE OF [place] CORONARY 08/10/2017 ISI SENA MD, Ot M19.91 PRIMARY OSTEOARTHRITIS, UNSPECIFIED SITE 08/10/2017 ISI SNEA MD, Ot N28.9 DISORDER OF KIDNEY AND URETER, UNSPECIFI 08/10/2017 ISI SENA MD, Ot N39.0 URINARY TRACT INFECTION, SITE NOT SPECIF 08/10/2017 ISI SENA MD, Ot R13.10 DYSPHAGIA, UNSPECIFIED 08/10/2017 ISI SENA MD, Ot R31.9 HEMATURIA, UNSPECIFIED 08/10/2017 ISI SENA MD, Ot R45.1 RESTLESSNESS AND AGITATION 08/10/2017 ISI SENA MD, Ot S37.39XA OTHER INJURY OF URETHRA, INITIAL ENCOUNT 08/10/2017 SII SENA MD, Ot T83.511A I/I REACT D/T INDWELLING URETHRAL CATHET 08/10/2017 ISI SENA MD, Ot X58.XXXA EXPOSURE TO OTHER SPECIFIED FACTORS, INI 08/10/2017 ISI SENA MD, Ot Z87.891 PERSONAL HISTORY OF NICOTINE DEPENDENCE 08/10/2017 ISI SENA MD, Ot Z93.1 GASTROSTOMY STATUS 08/10/2017 ISI SENA MD, Ot 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 08/10/2017 ISI SENA MD, Ot Z95.5 PRESENCE OF CORONARY ANGIOPLASTY IMPLANT 08/10/2017 ISI SENA MD, Ot Z96.652 PRESENCE OF LEFT ARTIFICIAL KNEE JOINT Procedures Code Description Performed By Performed On [id number] REPLACE OF L KNEE JT WITH SYNTH SUB, ANGE 01/21/2015 [id number] FUSION 2-6 C JT W INTBD FUS DEV, ANT LATA 07/10/2017 [id number] INSERTION OF FEEDING DEVICE INTO STOMACH 07/17/2017 [id number] INSPECTION OF LARYNX, ENDO 08/10/2017 Results Test Result Range Complete blood count [...] Staphylococcus aureus (MRSA) screening culture NEG NRG Whole blood basic metabolic panel - 07/13/17 [...] calculation of estimated glomerular filtration rate > NR Serum or plasma glucose measurement (mass/volume) 123 mg/dL 70-105 Serum or plasma calcium measurement (mass/volume) 8.8 mg/dL 8.5-10.1 Methicillin resistant Staphylococcus aureus (MRSA) screening culture - 12:00 MRSA SCREEN RESULT MRSA ISOLATED [facility] Complete blood count (CBC) with automated white [...] culture - 08/02/17 12:46 Bacterial urine culture [id number] NRG COLONY COUNT . NRG FTX;REPORTABLE 40,000 CFU/ML NRG FREE TEXT ENTRY 2 RML SENT SENSITIVITY REPORT 08/06 11:05 NR RML Sensitivity Panel - 08/02/17 12:46 Gentamicin [...] plasma albumin measurement (mass/volume) 2.8 g/dL 3.2-4.5 Complete blood count (CBC) with automated white blood cell (WBC) differential - 08/07/17 06:10 Blood leukocytes automated count (number/volume) 7.3 10*3/uL 4.3-11.0 Blood erythrocytes automated count (number/volume) 3.44 10*6/uL 4.35-5.85 Venous blood hemoglobin measurement (mass/volume) 10.7 g/dL 13.3-17.7 Blood hematocrit (volume fraction) 31 % 40-54 Automated erythrocyte mean corpuscular volume 90 [foz_us] 80-99 Automated erythrocyte mean corpuscular hemoglobin (mass per erythrocyte) 31 pg 25-34 Automated erythrocyte mean corpuscular hemoglobin concentration measurement ( mass/volume) 34 g/dL 32-36 Automated erythrocyte distribution width ratio 12.3 % 10.0-14.5 Automated blood platelet count (count/volume) 246 10*3/uL 130-400 Automated blood platelet mean volume measurement 11.1 [foz_us] 7.4-10.4 Automated blood neutrophils/100 leukocytes 66 % 42-75 Automated blood lymphocytes/100 leukocytes 18 % 12-44 Blood monocytes/100 leukocytes 7 % 0-12 Automated blood eosinophils/100 leukocytes 9 % 0-10 Automated blood basophils/100 leukocytes 1 % 0-10 Blood neutrophils automated count (number/volume) 4.8 10*3 1.8-7.8 Blood lymphocytes automated count (number/volume) 1.3 10*3 1.0-4.0 Blood monocytes automated count (number/volume) 0.5 10*3 0.0-1.0 Automated eosinophil count 0.7 10*3/uL 0.0-0.3 Automated blood basophil count (count/volume) 0.0 10*3/uL 0.0-0.1 Comprehensive metabolic panel - 08/07/17 06:10 Serum or plasma sodium measurement (moles/volume) 139 mmol/L 135-145 Serum or plasma potassium measurement (moles/volume) 3.9 mmol/L 3.6-5.0 Serum or plasma chloride measurement (moles/volume) 107 mmol/L 98-107 Carbon dioxide 24 mmol/L 21-32 Serum or plasma anion gap determination (moles/volume) 8 mmol/L 5-14 Serum or plasma urea nitrogen measurement (mass/volume) 18 mg/dL 7-18 Serum or plasma creatinine measurement (mass/volume) 0.97 mg/dL 0.60-1.30 Serum or plasma urea nitrogen/creatinine mass ratio 19 NRG Serum or plasma creatinine measurement with calculation of estimated glomerular filtration rate > NRG Serum or plasma glucose measurement (mass/volume) 131 mg/dL 70-105 Serum or plasma calcium measurement (mass/volume) 8.7 mg/dL 8.5-10.1 Serum or plasma total bilirubin measurement (mass/volume) 0.4 mg/dL 0.1-1.0 Serum or plasma alkaline phosphatase measurement (enzymatic activity/volume) 85 U/L 40-136 Serum or plasma aspartate aminotransferase measurement (enzymatic activity/ volume) 47 U/L 5-34 Serum or plasma alanine aminotransferase measurement (enzymatic activity/volume ) 69 U/L 0-55 Serum or plasma protein measurement (mass/volume) 6.1 g/dL 6.4-8.2 Serum or plasma albumin measurement (mass/volume) 2.8 g/dL 3.2-4.5 Complete blood count (CBC) with automated white blood cell (WBC) differential - 08/14/17 22:22 Blood leukocytes automated count (number/volume) 12.5 10*3/uL 4.3-11.0 Blood erythrocytes automated count (number/volume) 3.84 10*6/uL 4.35-5.85 Venous blood hemoglobin measurement (mass/volume) 11.7 g/dL 13.3-17.7 Blood hematocrit (volume fraction) 34 % 40-54 Automated erythrocyte mean corpuscular volume 88 [foz_us] 80-99 Automated erythrocyte mean corpuscular hemoglobin (mass per erythrocyte) 30 pg 25-34 Automated erythrocyte mean corpuscular hemoglobin concentration measurement ( mass/volume) 35 g/dL 32-36 Automated erythrocyte distribution width ratio 13.0 % 10.0-14.5 Automated blood platelet count (count/volume) 306 10*3/uL 130-400 Automated blood platelet mean volume measurement 10.9 [foz_us] 7.4-10.4 Automated blood neutrophils/100 leukocytes 78 % 42-75 Automated blood lymphocytes/100 leukocytes 10 % 12-44 Blood monocytes/100 leukocytes 11 % 0-12 Automated blood eosinophils/100 leukocytes 1 % 0-10 Automated blood basophils/100 leukocytes 0 % 0-10 Blood neutrophils automated count (number/volume) 9.8 10*3 1.8-7.8 Blood lymphocytes automated count (number/volume) 1.2 10*3 1.0-4.0 Blood monocytes automated count (number/volume) 1.3 10*3 0.0-1.0 Automated eosinophil count 0.2 10*3/uL 0.0-0.3 Automated blood basophil count (count/volume) 0.0 10*3/uL 0.0-0.1 PT panel in platelet poor plasma by coagulation assay - 08/14/17 22:22 Prothrombin time (PT) in platelet poor plasma by coagulation assay 14.4 s 12.2-14.7 INR in platelet poor plasma or blood by coagulation assay 1.1 0.8-1.4 Activated partial thromboplastin time (aPTT) in platelet poor plasma bycoagulation assay - 08/14/17 22:22 Activated partial thromboplastin time (aPTT) in platelet poor plasma bycoagulation assay 32 s 24-35 Blood lactic acid measurement (moles/volume) - 08/14/17 22:22 Blood lactic acid measurement (moles/volume) 0.94 mmol/L 0.50-2.00 Comprehensive metabolic panel - 08/14/17 22:22 Serum or plasma sodium measurement (moles/volume) 130 mmol/L 135-145 Serum or plasma potassium measurement (moles/volume) 4.5 mmol/L 3.6-5.0 Serum or plasma chloride measurement (moles/volume) 98 mmol/L 98-107 Carbon dioxide 20 mmol/L 21-32 Serum or plasma anion gap determination (moles/volume) 12 mmol/L 5-14 Serum or plasma urea nitrogen measurement (mass/volume) 35 mg/dL 7-18 Serum or plasma creatinine measurement (mass/volume) 1.22 mg/dL 0.60-1.30 Serum or plasma urea nitrogen/creatinine mass ratio 29 NRG Serum or plasma creatinine measurement with calculation of estimated glomerular filtration rate 57 NRG Serum or plasma glucose measurement (mass/volume) 120 mg/dL 70-105 Serum or plasma calcium measurement (mass/volume) 9.1 mg/dL 8.5-10.1 Serum or plasma total bilirubin measurement (mass/volume) 1.0 mg/dL 0.1-1.0 Serum or plasma alkaline phosphatase measurement (enzymatic activity/volume) 85 U/L 40-136 Serum or plasma aspartate aminotransferase measurement (enzymatic activity/ volume) 40 U/L 5-34 Serum or plasma alanine aminotransferase measurement (enzymatic activity/volume ) 48 U/L 0-55 Serum or plasma protein measurement (mass/volume) 6.8 g/dL 6.4-8.2 Serum or plasma albumin measurement (mass/volume) 3.1 g/dL 3.2-4.5 Magnesium - 08/14/17 22:22 Magnesium 1.9 mg/dL 1.8-2.4 Bacterial blood culture - 08/14/17 22:25 Bacterial blood culture NG NRG Bacterial blood culture - 08/14/17 22:30 Bacterial blood culture NG NRG Complete urinalysis with reflex to culture - 08/14/17 22:53 Urine color determination OTONIEL NRG Urine clarity determination CLEAR NRG Urine pH measurement by test strip 6.5 5-9 Specific gravity of urine by test strip 1.015 1.016- 1.022 Urine protein assay by test strip, semi-quantitative 3+ NEGATIVE Urine glucose detection by automated test strip NEGATIVE NEGATIVE Erythrocytes detection in urine sediment by light microscopy 1+ NEGATIVE Urine ketones detection by automated test strip NEGATIVE NEGATIVE Urine nitrite detection by test strip NEGATIVE NEGATIVE Urine total bilirubin detection by test strip NEGATIVE NEGATIVE Urine urobilinogen measurement by automated test strip (mass/volume) 1 mg/dL NORMAL Urine leukocyte esterase detection by dipstick 1+ NEGATIVE Automated urine sediment erythrocyte count by microscopy (number/high power field) RARE NRG Automated urine sediment leukocyte count by microscopy (number/high power field ) [HPF] NRG Bacteria detection in urine sediment by light microscopy NEGATIVE NRG Crystals detection in urine sediment by light microscopy NONE NRG Casts detection in urine sediment by light microscopy NONE NRG Mucus detection in urine sediment by light microscopy SMALL NRG Complete urinalysis with reflex to culture NO NRG Complete blood count (CBC) with automated white blood cell (WBC) differential - 08/15/17 06:17 Blood leukocytes automated count (number/volume) 11.0 10*3/uL 4.3-11.0 Blood erythrocytes automated count (number/volume) 3.73 10*6/uL 4.35-5.85 Venous blood hemoglobin measurement (mass/volume) 11.6 g/dL 13.3-17.7 Blood hematocrit (volume fraction) 34 % 40-54 Automated erythrocyte mean corpuscular volume 90 [foz_us] 80-99 Automated erythrocyte mean corpuscular hemoglobin (mass per erythrocyte) 31 pg 25-34 Automated erythrocyte mean corpuscular hemoglobin concentration measurement ( mass/volume) 35 g/dL 32-36 Automated erythrocyte distribution width ratio 13.2 % 10.0-14.5 Automated blood platelet count (count/volume) 286 10*3/uL 130-400 Automated blood platelet mean volume measurement 11.3 [foz_us] 7.4-10.4 Automated blood neutrophils/100 leukocytes 84 % 42-75 Automated blood lymphocytes/100 leukocytes 9 % 12-44 Blood monocytes/100 leukocytes 6 % 0-12 Automated blood eosinophils/100 leukocytes 1 % 0-10 Automated blood basophils/100 leukocytes 0 % 0-10 Blood neutrophils automated count (number/volume) 9.2 10*3 1.8-7.8 Blood lymphocytes automated count (number/volume) 1.0 10*3 1.0-4.0 Blood monocytes automated count (number/volume) 0.6 10*3 0.0-1.0 Automated eosinophil count 0.1 10*3/uL 0.0-0.3 Automated blood basophil count (count/volume) 0.0 10*3/uL 0.0-0.1 Whole blood basic metabolic panel - 08/15/17 06:17 Serum or plasma sodium measurement (moles/volume) 133 mmol/L 135-145 Serum or plasma potassium measurement (moles/volume) 5.0 mmol/L 3.6-5.0 Serum or plasma chloride measurement (moles/volume) 102 mmol/L 98-107 Carbon dioxide 20 mmol/L 21-32 Serum or plasma anion gap determination (moles/volume) 11 mmol/L 5-14 Serum or plasma urea nitrogen measurement (mass/volume) 31 mg/dL 7-18 Serum or plasma creatinine measurement (mass/volume) 1.17 mg/dL 0.60-1.30 Serum or plasma urea nitrogen/creatinine mass ratio 26 NRG Serum or plasma creatinine measurement with calculation of estimated glomerular filtration rate 60 NRG Serum or plasma glucose measurement (mass/volume) 141 mg/dL 70-105 Serum or plasma calcium measurement (mass/volume) 8.8 mg/dL 8.5-10.1 Encounters ACCT No. Visit Date/Time Discharge Status Pt. Type Provider Facility Loc./Unit Complaint [id number] 08/12/2017 18:14:00 08/12/2017 18:23:00 DIS Emergency REJI HAGER APRN [facility] ER CONFUSION [id number] 08/02/2017 13:30:00 08/10/2017 16:10:00 DIS Outpatient ISI SENA MD [facility] 4TH SEPSIS,UTI,HEMATURIS, CONFUSION/AGGITATION [id number] 07/25/2017 11:16:00 07/25/2017 23:59:59 CLS Preadmit ISI SENA MD [facility] RAD DYSPHAGIA [id number] 07/19/2017 11:35:00 07/19/2017 13:34:00 DIS Emergency REJI HAGER APRN [facility] ER ABD ISSUES [id number] 07/10/2017 09:56:00 07/18/2017 14:21:00 DIS Inpatient AMA MOON MD [facility] 4TH STENOSIS;DYSPHAGIA [id number] 07/04/2017 12:20:00 07/04/2017 13:05:00 DIS Outpatient AMA MOON MD [facility] PREOP C4-C7 ACDF [id number] 12/13/2016 12:58:00 12/13/2016 23:59:59 CLS Outpatient ANDREW ASTORGA FACC, KEZIA JETT CCDS [facility] 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 [id number] 08/02/2016 15:57:00 08/02/2016 23:59:59 CLS Outpatient YENY FIELD DO [facility] RAD M54.2,M54.6 [id number] 03/15/2016 06:44:00 03/15/2016 09:00:00 DIS Outpatient MAGDIEL MARTINEZ MD [facility] SDC MELANA [id number] 03/11/2016 05:32:00 03/11/2016 12:26:00 DIS Outpatient MAGDIEL MARTINEZ MD [facility] PREOP MELANA [id number] 11/19/2015 07:49:00 11/19/2015 23:59:59 CLS Outpatient BAIKENTON, CHANCE L GRAPHIC SPECIALIST [facility] CARD CAD,HYPERTENSION [id number] 10/19/2015 11:54:00 10/19/2015 23:59:59 CLS Outpatient BAIMA, CHANCE L GRAPHIC SPECIALIST [facility] RAD CAD,HTN,HLD [id number] 10/16/2015 10:47:00 10/16/2015 23:59:59 CLS Outpatient BAIMA, CHANCE L GRAPHIC SPECIALIST [facility] CARD CAD [id number] 08/25/2015 23:58:00 08/26/2015 01:01:00 DIS Emergency MILTON ASTORGA, MARISOL Maldonado [facility] ER BOTH EYELIDS BLEEDING( SURGERY ON 08-25-15) [id number] 07/13/2015 13:50:00 07/13/2015 23:59:59 CLS Outpatient AME RODRIGEZ MD [facility] RAD SPINAL STENOSIS OF LUMBOSACRAL SPINE [id number] 01/21/2015 05:57:00 01/24/2015 12:45:00 DIS Inpatient AME RODRIGEZ MD [facility] 4TH LEFT KNEE SEVERE OSTEOARTHRIS [id number] 01/14/2015 10:10:00 01/14/2015 23:59:59 CLS Outpatient AME RODRIGEZ MD [facility] PREOP LEFT KNEE SEVERE OSTEOARTHRITIS [id number] 09/09/2013 11:13:00 09/09/2013 23:59:59 CLS Outpatient DREW MARTINEZ MD [facility] RAD LT KNEE PAIN [id number] 06/18/2013 08:39:00 06/19/2013 09:30:00 DIS Outpatient ANDREW ASTORGA FACC, ALI FACP CCDS [facility] CATH ANGINA [id number] 04/30/2013 13:55:00 05/01/2013 11:00:00 DIS Outpatient ANDREW ASTORGA FACC, ALI FACP CCDS [facility] CATH CHEST PAIN DYPSENIA HYPERTENSION [id number] 10/25/2012 07:48:00 10/25/2012 23:59:59 CLS Outpatient ANDREW ASTORGA FACC, ALI FACP CCDS [facility] RAD CHEST DISCOMFORT [id number] 10/18/2012 09:33:00 10/18/2012 23:59:59 CLS Outpatient ANDREW ASTORGA FACC ALI FACP CCDS [facility] CARD CHEST DISCOMFORT [id number] 08/14/2017 22:31:00 Document Registration
--- NOTE | 2017-08-18 14:02 | Progress Note-Standard ---
Standard Progress Note Progress Notes/Assess & Plan Date Seen by Provider: Aug 18, 2017 Time Seen by Provider: 12:55 Progress/Assessment & Plan The staff at the intermediate caring for him reported manipulation of the PEG tube by the patient and being unable to use it for feeding. Therefore, he was brought to the endoscopy suite and examination revealed the adapter being connected in a reverse direction. Therefore, under my direction, the nursing staff replace the adapter and we are able to flush and aspirate saline without any difficulty. I have recommended placing an abdominal binder to minimize disruption of the tube by the patient as well. Final Diagnosis Malfunctioning PEG tube Copy Copies To 1: ISI SENA MD, XAVIER M MD Aug 18, 2017 2:02 pm
== END | disposition home or self-care (01) ==
LOC: ENDO 12:52
PROVIDERS: ATTEND Surgery
DX: K94.23 Gastrostomy malfunction (principal)

== ENCOUNTER 2017-08-19 03:49 | Emergency (ER) | payer MEDICARE, OTHER ==
[~2017-08-19] VITALS: Ht 182.9 cm; Wt 81.6 kg
[~2017-08-19 03:49] MED LIST changes: -LORA1TAB PEG; -METO50TA15 PEG; -ZIPR20CA23 PO; -morphine INJ 10 MG/ML 1ML (SYR OR VIAL) ONE
--- OUTSIDE RECORDS SUMMARY | 2017-08-19 03:57 | XMS REPORT | Continuity of Care Document ---
Author Author [facility] Organization [facility] Address Unknown Phone Unavailable Allergies Active Description Code Type Severity Reaction Onset Reported/Identified Relationship to Patient Clinical Status Yes No Known Drug Allergies [id number] Drug Allergy Unknown N/A 10/25/2012 Medications There [...] FACP CCDS Ot 414.01 CORONARY ATHEROSCLEROSIS OF [place] CORON 05/01/2013 KEZIA MORALES MD, FACC FACP [...] FACP CCDS Ot 414.01 CORONARY ATHEROSCLEROSIS OF [place] CORON 06/19/2013 ANDREW ASTORGA FACC ALI FACP CCDS Ot 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 [place] 06/19/2013 ANDREW FERREIRA, KEZIA FERREIRAP CCDS Ot 426.4 RT BUNDLE BRANCH BLOCK 06/19/2013 ANDREW ASTORGA FACC, KEZIA FACP CCDS Ot 585.3 CHRONIC KIDNEY DISEASE, STAGE III (MODER 06/19/2013 ANDREW ASTORGA FACC, KEZIA FACP CCDS Ot 786.59 CHEST PAIN NEC 06/19/2013 ANDREW ASTORGA FACC, [facility]IA [facility] CCDS Ot V15.82 HISTORY OF TOBACCO USE 06/19/2013 ANDREW ASTORGA FACC, KEZIA FACP CCDS Ot V45.82 PERCUTANEOUS TRANSLUM CORON ANGIOPLASTY 06/19/2013 ANDREW ASTORGA FACC, KEZIA FACP CCDS Ot V58.63 LONG-TERM(CURRENT)USE OF ANTIPLATELET/AN 06/19/2013 ANDREW ASTORGA FACC, KEZIA [facility] CCDS Ot V58.69 OTH MED,LT,CURRENT USE [...] Ot 785.2 CARDIAC MURMURS NEC 10/16/2015 ANDREW ASTROGA FACC, KEZIA FACP CCDS Ot 786.59 CHEST [...] OTHER SPECIFIED SURGICAL A 10/19/2015 CHANCE CARRENO PALLET REPAIRER Ot E78.4 OTHER HYPERLIPIDEMIA 10/19/2015 CHANCE CARRENO PALLET REPAIRER Ot I10 ESSENTIAL (PRIMARY) HYPERTENSION 10/19/2015 CHANCE CARRENO PALLET REPAIRER Ot I25.10 ATHSCL HEART DISEASE OF [place] CORONARY 10/19/2015 CHANCE CARRENO PALLET REPAIRER Ot I65.23 OCCLUSION AND STENOSIS OF BILATERAL [...] SPECIFIED SURGICAL A 10/19/2015 BAIMA, CHANCE L PALLET REPAIRER Ot E78.4 OTHER HYPERLIPIDEMIA 10/19/2015 BAIMA, CHANCE L PALLET REPAIRER Ot I10 ESSENTIAL (PRIMARY) HYPERTENSION 10/19/2015 FLAKOMA, CHANCE L PALLET REPAIRER Ot I25.10 ATHSCL HEART DISEASE OF [place] CORONARY 10/19/2015 BAIMA, CHANCE L PALLET REPAIRER Ot 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 10/19/2015 BAIMA, CHANCE L PALLET REPAIRER Ot I25.10 ATHSCL HEART DISEASE OF [place] CORONARY 10/19/2015 BAIMA, CHANCE L PALLET REPAIRER Ot E78.4 OTHER HYPERLIPIDEMIA 10/19/2015 BAIMA, CHANCE L PALLET REPAIRER Ot I10 ESSENTIAL (PRIMARY) HYPERTENSION 10/19/2015 BAIMA, CHANCE L PALLET REPAIRER Ot I25.10 ATHSCL HEART DISEASE OF [place] CORONARY 10/19/2015 BAIMA, CHANCE L PALLET REPAIRER Ot 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 10/20/2015 BAIMA, CHANCE L PALLET REPAIRER Ot I25.10 ATHSCL HEART DISEASE OF [place] CORONARY 10/21/2015 BAIMA, CHANCE L PALLET REPAIRER Ot E78.4 OTHER HYPERLIPIDEMIA 10/21/2015 BAIMA, CHANCE L PALLET REPAIRER Ot I10 ESSENTIAL (PRIMARY) HYPERTENSION 10/21/2015 BAIMA, CHANCE L PALLET REPAIRER Ot I25.10 ATHSCL HEART DISEASE OF [place] CORONARY 10/21/2015 BAIMA, CHANCE L PALLET REPAIRER Ot 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 10/23/2015 WAICHANCE Mary PALLET REPAIRER Ot E78.4 OTHER HYPERLIPIDEMIA 10/23/2015 FLAKOMA CHANCE L PALLET REPAIRER Ot I10 ESSENTIAL (PRIMARY) HYPERTENSION 10/23/2015 WAI CHANCE L PALLET REPAIRER Ot I25.10 ATHSCL HEART DISEASE OF [place] CORONARY 10/23/2015 CHANCE CARRENO PALLET REPAIRER Ot I65.23 OCCLUSION AND STENOSIS OF BILATERAL [...] OTHER SPECIFIED SURGICAL A 10/27/2015 CHANCE CARRENO PALLET REPAIRER Ot E78.4 OTHER HYPERLIPIDEMIA 10/27/2015 WAICHANCE Mary PALLET REPAIRER Ot I10 ESSENTIAL (PRIMARY) HYPERTENSION 10/27/2015 CHANCE CARRENO PALLET REPAIRER Ot I25.10 ATHSCL HEART DISEASE OF [place] CORONARY 10/27/2015 CHANCE CARRENO PALLET REPAIRER Ot 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 10/27/2015 FLAKOCHANCE FUNG PALLET REPAIRER Ot E78.4 OTHER HYPERLIPIDEMIA 10/27/2015 BAIMACHANCE L PALLET REPAIRER Ot I10 ESSENTIAL (PRIMARY) HYPERTENSION 10/27/2015 CHANCE CARRENO L PALLET REPAIRER Ot I25.10 ATHSCL HEART DISEASE OF [place] CORONARY 10/27/2015 CHANCE CARRENO PALLET REPAIRER Ot I65.23 OCCLUSION AND STENOSIS OF BILATERAL [...] SPECIFIED SURGICAL A 10/27/2015 WAI CHANCE Mary PALLET REPAIRER Ot E78.4 OTHER HYPERLIPIDEMIA 10/27/2015 WAICHANCE L PALLET REPAIRER Ot I10 ESSENTIAL (PRIMARY) HYPERTENSION 10/27/2015 WAI CHANCE L PALLET REPAIRER Ot I25.10 ATHSCL HEART DISEASE OF [place] CORONARY 10/27/2015 BAIMACHANCE L PALLET REPAIRER Ot 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 10/27/2015 BAIMA, CHANCE L PALLET REPAIRER Ot E78.4 OTHER HYPERLIPIDEMIA 10/27/2015 BAIMA, CHANCE L PALLET REPAIRER Ot I10 ESSENTIAL (PRIMARY) HYPERTENSION 10/27/2015 BAIMA, CHANCE L PALLET REPAIRER Ot I25.10 ATHSCL HEART DISEASE OF [place] CORONARY 10/27/2015 BAIMA CHANCE L PALLET REPAIRER Ot 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 11/06/2015 BAIMACHANCE L PALLET REPAIRER Ot E78.4 OTHER HYPERLIPIDEMIA 11/06/2015 BAIMA, CHANCE L PALLET REPAIRER Ot I10 ESSENTIAL (PRIMARY) HYPERTENSION 11/06/2015 BAIMA, CHANCE L PALLET REPAIRER Ot I25.10 ATHSCL HEART DISEASE OF [place] CORONARY 11/06/2015 BAIMA CHANCE L PALLET REPAIRER Ot 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 11/13/2015 BAIMA CHANCE L PALLET REPAIRER Ot E78.4 OTHER HYPERLIPIDEMIA 11/13/2015 BAIMA, CHANCE L PALLET REPAIRER Ot I10 ESSENTIAL (PRIMARY) HYPERTENSION 11/13/2015 BAIMA, CHANCE L PALLET REPAIRER Ot I25.10 ATHSCL HEART DISEASE OF [place] CORONARY 11/13/2015 BAIMAYARIELCHANCE L PALLET REPAIRER Ot I65.23 OCCLUSION AND STENOSIS OF BILATERAL [...] SPECIFIED SURGICAL A 11/19/2015 BAIMA, CHANCE L PALLET REPAIRER Ot E78.4 OTHER HYPERLIPIDEMIA 11/19/2015 BAIMA, CHANCE L PALLET REPAIRER Ot I10 ESSENTIAL (PRIMARY) HYPERTENSION 11/19/2015 BAIMA, CHANCE L PALLET REPAIRER Ot I25.10 ATHSCL HEART DISEASE OF [place] CORONARY 11/19/2015 BAIMA, CHANCE L PALLET REPAIRER Ot 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 11/19/2015 BAIMA, CHANCE L PALLET REPAIRER Ot E78.4 OTHER HYPERLIPIDEMIA 11/19/2015 BAIMA, CHANCE L PALLET REPAIRER Ot I10 ESSENTIAL (PRIMARY) HYPERTENSION 11/19/2015 BAIMA, CHANCE L PALLET REPAIRER Ot I25.10 ATHSCL HEART DISEASE OF [place] CORONARY 11/19/2015 BAIMA, CHANCE L PALLET REPAIRER Ot 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 11/20/2015 BAIMA, CHANCE L PALLET REPAIRER Ot E78.4 OTHER HYPERLIPIDEMIA 11/20/2015 BAIMA, HCANCE L PALLET REPAIRER Ot I10 ESSENTIAL (PRIMARY) HYPERTENSION 11/20/2015 BAIMA, CHANCE L PALLET REPAIRER Ot I25.10 ATHSCL HEART DISEASE OF [place] CORONARY 11/20/2015 BAIMA, CHANCE L PALLET REPAIRER Ot 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 11/23/2015 BAIMA, CHANCE L PALLET REPAIRER Ot E78.4 OTHER HYPERLIPIDEMIA 11/23/2015 BAIMA, CHANCE L PALLET REPAIRER Ot I10 ESSENTIAL (PRIMARY) HYPERTENSION 11/23/2015 BAIMA, CHANCE L PALLET REPAIRER Ot I25.10 ATHSCL HEART DISEASE OF [place] CORONARY 11/23/2015 BAIMA, CHANCE L PALLET REPAIRER Ot 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 12/11/2015 FLAKOCHANCE FUNG PALLET REPAIRER Ot E78.4 OTHER HYPERLIPIDEMIA 12/11/2015 CHANCE CARRENO PALLET REPAIRER Ot I10 ESSENTIAL (PRIMARY) HYPERTENSION 12/11/2015 CHANCE CARREON PALLET REPAIRER Ot I25.10 ATHSCL HEART DISEASE OF [place] CORONARY 12/11/2015 CHANCE CARRENO PALLET REPAIRER Ot I65.23 OCCLUSION AND STENOSIS OF BILATERAL [...] OTHER SPECIFIED SURGICAL A 03/15/2016 CHANCE CARRENO PALLET REPAIRER Ot E78.4 OTHER HYPERLIPIDEMIA 03/15/2016 BAIMA, CHANCE L PALLET REPAIRER Ot I10 ESSENTIAL (PRIMARY) HYPERTENSION 03/15/2016 BAIMA, CHANCE L PALLET REPAIRER Ot I25.10 ATHSCL HEART DISEASE OF [place] CORONARY 03/15/2016 BAIMA, CHANCE L PALLET REPAIRER Ot 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 03/15/2016 BAIMA, CHANCE L PALLET REPAIRER Ot E78.4 OTHER HYPERLIPIDEMIA 03/15/2016 BAIMA, CHANCE L PALLET REPAIRER Ot I10 ESSENTIAL (PRIMARY) HYPERTENSION 03/15/2016 BAIMA, CHANCE L PALLET REPAIRER Ot I25.10 ATHSCL HEART DISEASE OF [place] CORONARY 03/15/2016 BAIMA, CHANCE L PALLET REPAIRER Ot 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 03/15/2016 BAIMA, CHANCE L PALLET REPAIRER Ot E78.4 OTHER HYPERLIPIDEMIA 03/15/2016 BAIMA, CHANCE L PALLET REPAIRER Ot I10 ESSENTIAL (PRIMARY) HYPERTENSION 03/15/2016 BAIMA, CHANCE L PALLET REPAIRER Ot I25.10 ATHSCL HEART DISEASE OF [place] CORONARY 03/15/2016 BAIMA, CHANCE L PALLET REPAIRER Ot 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 03/15/2016 MAGDIEL MARTINEZ MD Ot K44.9 DIAPHRAGMATIC HERNIA WITHOUT OBSTRUCTION 03/15/2016 MICHELLE ASTORGA, MAGDIEL Berger Ot K92.1 MELENA 03/15/2016 MAGDIEL MARTINEZ MD Ot Z79.02 ART GILDER (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 03/15/2016 MAGDIEL MARTINEZ MD Ot Z79.82 CORRECTION (CURRENT) USE OF ASPIRIN 03/17/2016 MAGDIEL MARTINEZ MD Ot K44.9 DIAPHRAGMATIC HERNIA WITHOUT OBSTRUCTION 03/17/2016 MAGDIEL MARTINEZ MD Ot K92.1 MELENA 03/17/2016 MAGDIEL MARTINEZ MD Ot Z79.02 ART GILDER (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 03/17/2016 MAGDIEL MARTINEZ MD Ot Z79.82 CORRECTION (CURRENT) USE OF ASPIRIN 08/02/2016 ANDREW ASTORGA [...] SPECIFIED SURGICAL A 08/02/2016 BAIMA, CHANCE L PALLET REPAIRER Ot E78.4 OTHER HYPERLIPIDEMIA 08/02/2016 BAIMA, CHANCE L PALLET REPAIRER Ot I10 ESSENTIAL (PRIMARY) HYPERTENSION 08/02/2016 BAIMA, CHANCE L PALLET REPAIRER Ot I25.10 ATHSCL HEART DISEASE OF [place] CORONARY 08/02/2016 BAIMA, CHANCE L PALLET REPAIRER Ot 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 08/02/2016 BAIMA, CHANCE L PALLET REPAIRER Ot E78.4 OTHER HYPERLIPIDEMIA 08/02/2016 BAIMA, CHANCE L PALLET REPAIRER Ot I10 ESSENTIAL (PRIMARY) HYPERTENSION 08/02/2016 BAIMA, CHANCE L PALLET REPAIRER Ot I25.10 ATHSCL HEART DISEASE OF [place] CORONARY 08/02/2016 BAIMA, CHANCE L PALLET REPAIRER Ot 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 08/02/2016 BAIMA, CHANCE L PALLET REPAIRER Ot E78.4 OTHER HYPERLIPIDEMIA 08/02/2016 BAIMA, CHANCE L PALLET REPAIRER Ot I10 ESSENTIAL (PRIMARY) HYPERTENSION 08/02/2016 BAIMA, CHANCE L PALLET REPAIRER Ot I25.10 ATHSCL HEART DISEASE OF [place] CORONARY 08/02/2016 WAI CHANCE L PALLET REPAIRER Ot I65.23 OCCLUSION AND STENOSIS OF BILATERAL [...] CCDS Ot I25.10 ATHSCL HEART DISEASE OF [place] CORONARY 12/14/2016 ANDREW ASTORGA FACC, KEZIA FACP CCDS Ot E78.4 OTHER HYPERLIPIDEMIA 12/14/2016 ANDREW ASTORGA FACC, ALI FACP CCDS Ot I12.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 12/14/2016 ANDREW ASTORGA FACC, ALI FACP CCDS Ot I25.10 ATHSCL HEART DISEASE OF [place] CORONARY 12/14/2016 ANDREW ASTORGA FACC, KEZIA FACP CCDS Ot 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 12/14/2016 ANDREW ASTORGA FACC, ALI FACP CCDS Ot N18.3 CHRONIC KIDNEY DISEASE, STAGE 3 (MODERAT 01/03/2017 ANDREW ASTORGA FACC, ALI FACP CCDS Ot E78.4 OTHER HYPERLIPIDEMIA 01/03/2017 ANDREW SATORGA FACC, ALI FACP CCDS Ot I12.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 01/03/2017 ANDREW ASTORGA FACC, ALI FACP CCDS Ot I25.10 ATHSCL HEART DISEASE OF [place] CORONARY 01/03/2017 ANDREW ASTORGA FACC, ALI FACP [...] CCDS Ot I25.10 ATHSCL HEART DISEASE OF [place] CORONARY 01/10/2017 ANDREW ASTORGA FACC, ALI FACP [...] CCDS Ot I25.10 ATHSCL HEART DISEASE OF [place] CORONARY 06/21/2017 ANDREW ASTROGA FACC, ALI FACP CCDS Ot I65.23 OCCLUSION [...] CCDS Ot I25.10 ATHSCL HEART DISEASE OF [place] CORONARY 07/04/2017 ANDREW ASTORGA FACC, ALI FACP [...] CCDS Ot I25.10 ATHSCL HEART DISEASE OF [place] CORONARY 07/10/2017 ANDREW ASTORGA FACC, ALI FACP [...] MD Ot I25.10 ATHSCL HEART DISEASE OF [place] CORONARY 07/14/2017 AMA MOON MD Ot M19.91 [...] MD Ot I25.10 ATHSCL HEART DISEASE OF [place] CORONARY 07/17/2017 AMA MOON MD Ot M19.91 [...] MD Ot I25.10 ATHSCL HEART DISEASE OF [place] CORONARY 07/17/2017 AMA MOON MD Ot M19.91 [...] MD, Ot I25.10 ATHSCL HEART DISEASE OF [place] CORONARY 07/17/2017 AMA MOON MD Ot M19.91 [...] MD Ot I25.10 ATHSCL HEART DISEASE OF [place] CORONARY 07/18/2017 AMA MOON MD Ot M19.91 [...] MD Ot I25.10 ATHSCL HEART DISEASE OF [place] CORONARY 07/18/2017 AMA MOON MD Ot J39.2 [...] SPECIFIED SURGICAL A 07/19/2017 BAIMA, CHANCE L PALLET REPAIRER Ot E78.4 OTHER HYPERLIPIDEMIA 07/19/2017 BAIMA, CHANCE L PALLET REPAIRER Ot I10 ESSENTIAL (PRIMARY) HYPERTENSION 07/19/2017 BAIMA, CHANCE L PALLET REPAIRER Ot I25.10 ATHSCL HEART DISEASE OF [place] CORONARY 07/19/2017 BAIMA, CHANCE L PALLET REPAIRER Ot 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 07/19/2017 BAIMA, CHANCE L PALLET REPAIRER Ot E78.4 OTHER HYPERLIPIDEMIA 07/19/2017 BAIMA, CHANCE L PALLET REPAIRER Ot I10 ESSENTIAL (PRIMARY) HYPERTENSION 07/19/2017 BAIMA, CHANCE L PALLET REPAIRER Ot I25.10 ATHSCL HEART DISEASE OF [place] CORONARY 07/19/2017 BAIMA, CHANCE L PALLET REPAIRER Ot 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 07/19/2017 BAIMA, CHANCE L PALLET REPAIRER Ot E78.4 OTHER HYPERLIPIDEMIA 07/19/2017 BAIMA, CHANCE L PALLET REPAIRER Ot I10 ESSENTIAL (PRIMARY) HYPERTENSION 07/19/2017 BAIMA, CHANCE L PALLET REPAIRER Ot I25.10 ATHSCL HEART DISEASE OF [place] CORONARY 07/19/2017 BAIMA, CHANCE L PALLET REPAIRER Ot I65.23 OCCLUSION AND STENOSIS OF BILATERAL [...] CCDS Ot I25.10 ATHSCL HEART DISEASE OF [place] CORONARY 07/19/2017 ANDREW ASTORGA FACC, ALI FACP CCDS Ot 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 07/19/2017 ANDREW ASTORGA FACC, ALI FACP CCDS Ot N18.3 CHRONIC KIDNEY DISEASE, STAGE 3 (MODERAT 07/19/2017 REJI HAGER APRN Ot E03.9 HYPOTHYROIDISM, UNSPECIFIED 07/19/2017 REJI HAGER APRN Ot I10 ESSENTIAL (PRIMARY) HYPERTENSION 07/19/2017 REJI HAGER APRN Ot 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 07/19/2017 REJI HAGER APRN Ot Z79.82 CORRECTION (CURRENT) USE OF ASPIRIN 07/19/2017 REJI HAGER [...] MALFUNCTION 07/24/2017 REJI HAGER APRN Ot Z79.82 CORRECTION (CURRENT) USE OF ASPIRIN 07/24/2017 REJI HAGER APRN Ot Z80.0 FAMILY HISTORY OF MALIGNANT NEOPLASM OF 07/24/2017 ERJI HAGER APRN Ot Z82.49 FAMILY HX OF [...] MD, Ot I25.10 ATHSCL HEART DISEASE OF [place] CORONARY 08/04/2017 ISI SENA MD Ot M19.91 [...] MD, Ot I25.10 ATHSCL HEART DISEASE OF [place] CORONARY 08/08/2017 ISI SENA MD, Ot M19.91 PRIMARY OSTEOARTHRITIS, UNSPECIFIED SITE 08/08/2017 ISI SENA MD, Ot N28.9 DISORDER OF [...] MD, Ot I25.10 ATHSCL HEART DISEASE OF [place] CORONARY 08/09/2017 ISI SENA MD, Ot M19.91 [...] MD, Ot I25.10 ATHSCL HEART DISEASE OF [place] CORONARY 08/09/2017 ISI SENA MD, Ot M19.91 [...] MD, Ot I25.10 ATHSCL HEART DISEASE OF [place] CORONARY 08/09/2017 ISI SENA MD, Ot M19.91 [...] MD, Ot I25.10 ATHSCL HEART DISEASE OF [place] CORONARY 08/10/2017 ISI SENA MD, Ot M19.91 [...] MD, Ot I25.10 ATHSCL HEART DISEASE OF [place] CORONARY 08/10/2017 ISI SENA MD, Ot M19.91 [...] Procedures Code Description Performed By Performed On [id number] REPLACE OF L KNEE JT WITH SYNTH SUB, ANGE 01/21/2015 [id number] FUSION 2-6 C JT W INTBD FUS DEV, ANT LATA 07/10/2017 [id number] INSERTION OF FEEDING DEVICE INTO STOMACH 07/17/2017 [id number] INSPECTION OF LARYNX, ENDO 08/10/2017 Results Test [...] - 12:00 MRSA SCREEN RESULT MRSA ISOLATED [facility] Complete blood count (CBC) with automated white [...] culture - 08/02/17 12:46 Bacterial urine culture [id number] NRG COLONY COUNT . NRG FTX;REPORTABLE 40,000 [...] Status Pt. Type Provider Facility Loc./Unit Complaint [id number] 08/12/2017 18:14:00 08/12/2017 18:23:00 DIS Emergency REJI HAGER APRN [facility] ER CONFUSION [id number] 08/02/2017 13:30:00 08/10/2017 16:10:00 DIS Outpatient ISI SENA MD [facility] 4TH SEPSIS,UTI,HEMATURIS, CONFUSION/AGGITATION [id number] 07/25/2017 11:16:00 07/25/2017 23:59:59 CLS Preadmit ISI SENA MD [facility] RAD DYSPHAGIA [id number] 07/19/2017 11:35:00 07/19/2017 13:34:00 DIS Emergency REJI HAGER APRN [facility] ER ABD ISSUES [id number] 07/10/2017 09:56:00 07/18/2017 14:21:00 DIS Inpatient AMA MOON MD [facility] 4TH STENOSIS;DYSPHAGIA [id number] 07/04/2017 12:20:00 07/04/2017 13:05:00 DIS Outpatient AMA MOON MD [facility] PREOP C4-C7 ACDF [id number] 12/13/2016 12:58:00 12/13/2016 23:59:59 CLS Outpatient ANDREW ASTORGA FACC, KEZIA JETT CCDS [facility] 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 [id number] 08/02/2016 15:57:00 08/02/2016 23:59:59 CLS Outpatient YENY FIELD DO [facility] RAD M54.2,M54.6 [id number] 03/15/2016 06:44:00 03/15/2016 09:00:00 DIS Outpatient MAGDIEL MARTINEZ MD [facility] SDC MELANA [id number] 03/11/2016 05:32:00 03/11/2016 12:26:00 DIS Outpatient MAGDIEL MARTINEZ MD [facility] PREOP MELANA [id number] 11/19/2015 07:49:00 11/19/2015 23:59:59 CLS Outpatient BAIKENTON, CHANCE L PALLET REPAIRER [facility] CARD CAD,HYPERTENSION [id number] 10/19/2015 11:54:00 10/19/2015 23:59:59 CLS Outpatient BAIMA, CHANCE L PALLET REPAIRER [facility] RAD CAD,HTN,HLD [id number] 10/16/2015 10:47:00 10/16/2015 23:59:59 CLS Outpatient BAIMA, CHANCE L PALLET REPAIRER [facility] CARD CAD [id number] 08/25/2015 23:58:00 08/26/2015 01:01:00 DIS Emergency MILTON ASTORGA, MARISOL Maldonado [facility] ER BOTH EYELIDS BLEEDING( SURGERY ON 08-25-15) [id number] 07/13/2015 13:50:00 07/13/2015 23:59:59 CLS Outpatient AME RODRIGEZ MD [facility] RAD SPINAL STENOSIS OF LUMBOSACRAL SPINE [id number] 01/21/2015 05:57:00 01/24/2015 12:45:00 DIS Inpatient AME RODRIGEZ MD [facility] 4TH LEFT KNEE SEVERE OSTEOARTHRIS [id number] 01/14/2015 10:10:00 01/14/2015 23:59:59 CLS Outpatient AME RODRIGEZ MD [facility] PREOP LEFT KNEE SEVERE OSTEOARTHRITIS [id number] 09/09/2013 11:13:00 09/09/2013 23:59:59 CLS Outpatient DREW MARTINEZ MD [facility] RAD LT KNEE PAIN [id number] 06/18/2013 08:39:00 06/19/2013 09:30:00 DIS Outpatient ANDREW ASTORGA FACC, ALI FACP CCDS [facility] CATH ANGINA [id number] 04/30/2013 13:55:00 05/01/2013 11:00:00 DIS Outpatient ANDREW ASTORGA FACC, ALI FACP CCDS [facility] CATH CHEST PAIN DYPSENIA HYPERTENSION [id number] 10/25/2012 07:48:00 10/25/2012 23:59:59 CLS Outpatient ANDREW ASTORGA FACC, ALI FACP CCDS [facility] RAD CHEST DISCOMFORT [id number] 10/18/2012 09:33:00 10/18/2012 23:59:59 CLS Outpatient ANDREW ASTORGA FACC ALI FACP CCDS [facility] CARD CHEST DISCOMFORT [id number] 08/14/2017 22:31:00 Document Registration
--- NOTE | 2017-08-19 05:18 | ED General ---
General Chief Complaint: Catheter/Drain/Tube Problems Stated Complaint: PULLED OUT CATHETER Nursing Triage Note: PULLED END OFF PEG TUBE Nursing Sepsis Screen: No Definite Risk Source of Information: Patient Exam Limitations: No Limitations History of Present Illness Date Seen by Provider: Aug 19, 2017 Time Seen by Provider: 03:52 Initial Comments This 81-year-old gentleman presents to the emergency room from the senior living after he removed the cap extension from his PEG tube. Staff could not find it anywhere. His tube was leaking and they needed some type of repair or placement to the tube. Also they report he removed his Joe catheter. care home staff states he has been voiding but patient states he has difficulty voiding. Allergies and Home Medications Allergies Coded Allergies: No Known Drug Allergies (Unverified , 10/25/12) Home Medications Acetaminophen 325 Mg Tablet, 650 MG PO Q4H PRN for TEMPATURE OR MILD PAIN, ( Reported) Aspirin 81 Mg Tab.chew, 162 MG PEG DAILY, (Reported) TAKE 2 (81MG) TABS Dorzolamide HCl/Timolol Maleat 10 Ml Drops, 1 DROP OU BID, (Reported) Famotidine 20 Mg Tablet, 20 MG PEG BID, (Reported) Glycerin/Propylene Glycol 30 Ml Drops, 1 DROP OU QID PRN for DRY EYES, (Reported ) Lactose-Reduced Food/Fiber 237 Ml Liquid, 237 ML PEG 5XD, (Reported) Levothyroxine Sodium 88 Mcg Tablet, 88 MCG PEG DAILY, (Reported) Loteprednol Etabonate 5 Gm Drops.gel, 1 DROP OD 1800, (Reported) Magnesium Hydroxide 400 Mg/5 Ml Oral.susp, 30 ML PEG DAILY PRN for CONSTIPATION- 7TH LINE, (Reported) Melatonin 3 Mg Tablet, 3 MG PO HS, (Reported) Metoprolol Succinate 100 Mg Tab.er.24h, 100 MG PEG DAILY, (Reported) HOLD AND NOTIFY PHYSICIAN FOR SYSTOLIC LESS THAN 100 AND OR DIASTOLIC LESS THAN 60. HOLD AND NOTIFY PHYSICIAN FOR PULSE LESS THAN OR EQUAL TO 60 Tramadol HCl 50 Mg Tablet, 50 MG PO Q6H PRN for PAIN-MODERATE, (Reported) Patient Home Medication List Home Medication List Reviewed: Yes Review of Systems Constitutional: no symptoms reported Gastrointestinal: see HPI Genitourinary: see HPI Psychiatric/Neurological: See HPI Past Zkncbyr-Jmlvxl-Phnlvs Hx Patient Social History Alcohol Use: Denies Use Recreational Drug Use: No Smoking Status: Former Smoker Type Used: Cigarettes Former Smoker, Quit: Mar 11, 1989 2nd Hand Smoke Exposure: No Recent Foreign Travel: No Contact w/Someone Who Travel: No Recent Infectious Disease Expo: No Recent Hopitalizations: Yes Immunizations Up To Date Date of Pneumonia Vaccine: Nov 12, 2015 Date of Influenza Vaccine: Dec 06, 2015 Seasonal Allergies Seasonal Allergies: No Past Medical History Surgeries: Yes (CORNEA TRANSPLANT, MASTOIDECTOMY, eyelid reduction, L TKR, neck , PEG tube) Gallbladder, Joint Replacement, Orthopedic Respiratory: No Cardiac: Yes (STENTS X2-LAST ONE COUPLE YEARS AGO) Coronary Artery Disease, High Cholesterol, Hypertension Neurological: Yes (dysphagia) Dementia Reproductive Disorders: No Sexually Transmitted Disease: No HIV/AIDS: No Genitourinary: Yes (joe cath since having sx on cervical spin for stenosis) UTI-Chronic Gastrointestinal: Yes (peg tube placement since having sx on cervical spine for stenosis) Chronic Constipation Musculoskeletal: Yes (spinal stenosis, ) Arthritis, Chronic Back Pain Endocrine: No Hypothyroidsim HEENT: Yes Glaucoma Loss of Vision: Bilateral Hearing Impairment: Denies Cancer: No Psychosocial: No Integumentary: No Blood Disorders: No Adverse Reaction/Blood Tranf: No Family Medical History LUNG CANCER G8 BROTHER Myocardial infarction 19 MOTHER Physical Exam Vital Signs Vital Signs - First Documented 08/19/17 03:59 Temp 97.4 Pulse 116 Resp 18 B/P (MAP) 100/66 (77) Pulse Ox 96 O2 Delivery Room Air Capillary Refill : Less Than 3 Seconds General Appearance: No Apparent Distress, WD/WN Gastrointestinal: Other (PEG tube in place but missing its. Skin clean dry and intact. Abdomen soft and nontender.) Progress/Results/Core Measures Suspected Sepsis Recent Fever Within 48 Hours: No Infection Criteria Present: None New/Unexplained Altered Menta: No Sepsis Screen: No Definite Risk SIRS Temperature:97.4 Pulse: 116 Respiratory Rate: 18 Blood Pressure 100 /66 Mean: 77 Results/Orders Vital Signs/I&O Capillary Refill : Less Than 3 Seconds Blood Pressure Mean: 77 Progress Note : Progress Note A new PEG tube care was found and the Extension was replaced. An abdominal binder was then placed over the PEG tube to prevent the patient from pulling on it. I discussed the Joe catheter with patient's nursing staff at the senior living. They advised leaving it out for fear he would pull it out again. Patient has been able to void. Urine volumes were in the 200-300 range on the bladder scan. Nursing staff stated they have the ability to place a Joe catheter at the senior living if necessary. Departure Impression Primary Impression: PEG tube malfunction Disposition: 01 HOME, SELF-CARE Condition: Improved Departure-Patient Inst. Decision time for Depature: 05:16 Referrals: ISI SENA MD (PCP/Family) Primary Care Physician Patient Instructions: How to Care for Your PEG Tube Add. Discharge Instructions: Keep the PEG tube cover not accessible to patient. Contact Dr. Reddy with any further problems or concerns. All discharge instructions reviewed with patient and/or family. Voiced understanding. Copy Copies To 1: ISI SENA MD, JOSHUA T MD Aug 19, 2017 05:18
[2017-08-19 05:25] VITALS: BP 120/81
[2017-08-22] MEDS ORDERED: LORA1TAB PEG (09:06)
[2017-08-22] MEDS ORDERED: ZIPR20CA23 PO (12:49)
== END 2017-08-19 05:20 | disposition home or self-care (01) ==
LOC: EDUNIT# 03:49 → ER 03:52
DX: T82.42XA Displacement of vascular dialysis catheter, initial encounter (principal); I25.10 Atherosclerotic heart disease of native coronary artery without angina pectoris; E78.00 Pure hypercholesterolemia, unspecified; I10 Essential (primary) hypertension; E03.9 Hypothyroidism, unspecified; F03.90 Unspecified dementia, unspecified severity, without behavioral disturbance, psychotic disturbance, mood disturbance, and anxiety; Z79.82 Long term (current) use of aspirin; Z87.440 Personal history of urinary (tract) infections; Z96.652 Presence of left artificial knee joint; Z87.891 Personal history of nicotine dependence
CPT/HCPCS: 99283

== ENCOUNTER 2017-08-20 02:26 | Emergency (ER) | payer MEDICARE, OTHER ==
[~2017-08-20] VITALS: Ht 182.9 cm; Wt 81.6 kg
--- NOTE | 2017-08-20 02:42 | ED GI ---
General Stated Complaint: PEG TUBE History of Present Illness Date Seen by Provider: Aug 20, 2017 Time Seen by Provider: 02:25 Initial Comments Patient [facility] with chief complaint that he pulled his PEG tube out again. He is not citing any pain, nausea or discomfort at this time. He is not having any shortness of breath or cough. EMS reports his vital signs are normal. This is the third time in the last 3 days that is pulled his PEG tube out. Allergies and Home Medications Allergies Coded Allergies: No Known Drug Allergies (Unverified , 10/25/12) Home Medications Acetaminophen 325 Mg Tablet, 650 MG PO Q4H PRN for TEMPATURE OR MILD PAIN, ( Reported) Aspirin 81 Mg Tab.chew, 162 MG PEG DAILY, (Reported) TAKE 2 (81MG) TABS Dorzolamide HCl/Timolol Maleat 10 Ml Drops, 1 DROP OU BID, (Reported) Famotidine 20 Mg Tablet, 20 MG PEG BID, (Reported) Glycerin/Propylene Glycol 30 Ml Drops, 1 DROP OU QID PRN for DRY EYES, (Reported ) Lactose-Reduced Food/Fiber 237 Ml Liquid, 237 ML PEG 5XD, (Reported) Levothyroxine Sodium 88 Mcg Tablet, 88 MCG PEG DAILY, (Reported) Loteprednol Etabonate 5 Gm Drops.gel, 1 DROP OD 1800, (Reported) Magnesium Hydroxide 400 Mg/5 Ml Oral.susp, 30 ML PEG DAILY PRN for CONSTIPATION- 7TH LINE, (Reported) Melatonin 3 Mg Tablet, 3 MG PO HS, (Reported) Metoprolol Succinate 100 Mg Tab.er.24h, 100 MG PEG DAILY, (Reported) HOLD AND NOTIFY PHYSICIAN FOR SYSTOLIC LESS THAN 100 AND OR DIASTOLIC LESS THAN 60. HOLD AND NOTIFY PHYSICIAN FOR PULSE LESS THAN OR EQUAL TO 60 Tramadol HCl 50 Mg Tablet, 50 MG PO Q6H PRN for PAIN-MODERATE, (Reported) Patient Home Medication List Home Medication List Reviewed: Yes Review of Systems Constitutional: see HPI (patient is a very limited review of systems secondary to dementia.) Past Rqwwsbp-Svveis-Nbonlh Hx Patient Social History Alcohol Use: Denies Use Recreational Drug Use: No Smoking Status: Former Smoker Type Used: Cigarettes Former Smoker, Quit: Mar 11, 1989 2nd Hand Smoke Exposure: No Recent Hopitalizations: Yes Immunizations Up To Date Date of Pneumonia Vaccine: Nov 12, 2015 Date of Influenza Vaccine: Dec 06, 2015 Seasonal Allergies Seasonal Allergies: No Past Medical History Surgeries: Yes (CORNEA TRANSPLANT, MASTOIDECTOMY, eyelid reduction, L TKR, neck , PEG tube) Gallbladder, Joint Replacement, Orthopedic Respiratory: No Cardiac: Yes (STENTS X2-LAST ONE COUPLE YEARS AGO) Coronary Artery Disease, High Cholesterol, Hypertension Neurological: Yes (dysphagia) Dementia Reproductive Disorders: No Sexually Transmitted Disease: No HIV/AIDS: No Genitourinary: Yes (joe cath since having sx on cervical spin for stenosis) UTI-Chronic Gastrointestinal: Yes (peg tube placement since having sx on cervical spine for stenosis) Chronic Constipation Musculoskeletal: Yes (spinal stenosis, ) Arthritis, Chronic Back Pain Endocrine: No Hypothyroidsim HEENT: Yes Glaucoma Loss of Vision: Bilateral Hearing Impairment: Denies Cancer: No Psychosocial: No Integumentary: No Blood Disorders: No Adverse Reaction/Blood Tranf: No Family Medical History LUNG CANCER G8 BROTHER Myocardial infarction 19 MOTHER Physical Exam Vital Signs Capillary Refill : General Appearance: WD/WN, no apparent distress HEENT: normal ENT inspection, TMs normal, pharynx normal Neck: non-tender, supple Respiratory: chest non-tender, lungs clear, normal breath sounds, no respiratory distress, no accessory muscle use Cardiovascular: normal peripheral pulses, regular rate, rhythm, no edema Gastrointestinal: normal bowel sounds, non tender, soft, other (patent gastrostomy with a G-tube in the bed beside him that is missing the distal tip.) Extremities: no pedal edema, normal capillary refill Neurologic/Psychiatric: alert, normal mood/affect, other (oriented to person only) Progress/Results/Core Measures Progress Progress Note : Time: 02:39 Progress Note 10 Citizen Of [place] Joe catheter was lubricated and replaced in the gastrostomy. The gastrostomy was first explored however using a pair of forceps and no foreign bodies were palpable or retrievable. If the tip of the PEG tube is still in his stomach than it should pass easily. If it was in the gastrostomy should've been pushed back into the stomach as the PEG tube was placed. We'll have the staff at the half-way call Dr. Ahuja who is identity management consultant tomorrow morning first thing and request follow-up. Departure Impression Primary Impression: Malfunction of percutaneous endoscopic gastrostomy (PEG) tube Disposition: 01 HOME, SELF-CARE Condition: Improved Departure-Patient Inst. Decision time for Depature: 02:41 Referrals: ISI SENA MD (PCP/Family) Primary Care Physician Patient Instructions: How to Care for Your PEG Tube Add. Discharge Instructions: Call Dr. Ahuja 7:00 in the morning and request further management of PEG tube displacement. Copy Copies To 1: REBA AHUJA MD; ISI SENA MD, TITUS J Aug 20, 2017 02:42
[2017-08-20 02:45] VITALS: BP 127/66
--- OUTSIDE RECORDS SUMMARY | 2017-08-20 12:07 | XMS REPORT | Continuity of Care Document ---
Author Author [facility] Organization [facility] Address Unknown Phone Unavailable Allergies Active Description Code Type Severity Reaction Onset Reported/Identified Relationship to Patient Clinical Status Yes No Known Drug Allergies [id number] Drug Allergy Unknown N/A 10/25/2012 Medications There [...] FACP CCDS Ot 414.01 CORONARY ATHEROSCLEROSIS OF [place] CORON 05/01/2013 KEZIA MORALES MD, FACC FACP [...] FACP CCDS Ot 414.01 CORONARY ATHEROSCLEROSIS OF [place] CORON 06/19/2013 ANDREW ASTORGA FACC ALI FACP CCDS Ot 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 CALCIFIE 06/19/2013 ANDREW FERREIRA, KEZIA FERREIRAP CCDS Ot 426.4 RT BUNDLE BRANCH BLOCK 06/19/2013 ANDREW ASTORGA FACC, KEZIA FACP CCDS Ot 585.3 CHRONIC KIDNEY DISEASE, STAGE III (MODER 06/19/2013 ANDREW ASTORGA FACC, KEZIA FACP CCDS Ot 786.59 CHEST PAIN NEC 06/19/2013 AND[facility]W ASTORGA FACC, [facility] V15.82 HISTORY OF TOBACCO USE 06/19/2013 ANDREW ASTORGA FACC, KEZIA FACP CCDS Ot V45.82 PERCUTANEOUS TRANSLUM CORON ANGIOPLASTY 06/19/2013 ANDREW ASTORGA FACC, KEZIA FACP CCDS Ot V58.63 LONG-TERM(CURRENT)USE OF ANTIPLATELET/AN 06/19/2013 ANDREW ASTORGA FACC, KEZIA [facility] Ot V58.69 OTH MED,LT,CURRENT USE [...] OTHER SPECIFIED SURGICAL A 10/19/2015 CHANCE CARRENO RIVET DRIVER Ot E78.4 OTHER HYPERLIPIDEMIA 10/19/2015 CHANCE CARRENO RIVET DRIVER Ot I10 ESSENTIAL (PRIMARY) HYPERTENSION 10/19/2015 CHANCE CARRENO RIVET DRIVER Ot I25.10 ATHSCL HEART DISEASE OF [place] CORONARY 10/19/2015 CHANCE CARRENO RIVET DRIVER Ot I65.23 OCCLUSION AND STENOSIS OF BILATERAL [...] PRIMARY OSTEOARTHRITIS, LEFT 10/19/2015 RAIN ASTORGA, AME Hrebert Ot R53.83 OTHER FATIGUE 10/19/2015 RAIN ASTORGA, AME Herbert Ot Z01.810 ENCOUNTER FOR PREPROCEDURAL CARDIOVASCUL 10/19/2015 RAIN ASTORGA, AME Herbert Ot Z01.811 ENCOUNTER FOR PREPROCEDURAL RESPIRATORY 10/19/2015 RAIN ASOTRGA, AME Herbert Ot Z01.812 ENCOUNTER FOR PREPROCEDURAL LABORATORY E 10/19/2015 RAIN ASTORGA, AME Herbert Ot Z11.2 ENCOUNTER FOR SCREENING FOR OTHER BACTER 10/19/2015 RAIN ASTORGA, AME Herbert Ot M48.07 SPINAL STENOSIS, LUMBOSACRAL REGION 10/19/2015 RAIN ASTORGA, AME Herbert Ot Z48.89 ENCOUNTER FOR OTHER SPECIFIED SURGICAL A 10/19/2015 BAIMA, CHANCE L RIVET DRIVER Ot E78.4 OTHER HYPERLIPIDEMIA 10/19/2015 BAIMA, CHANCE L RIVET DRIVER Ot I10 ESSENTIAL (PRIMARY) HYPERTENSION 10/19/2015 FLAKOMA, CHANCE L RIVET DRIVER Ot I25.10 ATHSCL HEART DISEASE OF [place] CORONARY 10/19/2015 BAIMA, CHANCE L RIVET DRIVER Ot 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 10/19/2015 BAIMA, CHANCE L RIVET DRIVER Ot I25.10 ATHSCL HEART DISEASE OF [place] CORONARY 10/19/2015 BAIMA, CHANCE L RIVET DRIVER Ot E78.4 OTHER HYPERLIPIDEMIA 10/19/2015 BAIMA, CHANCE L RIVET DRIVER Ot I10 ESSENTIAL (PRIMARY) HYPERTENSION 10/19/2015 BAIMA, CHANCE L RIVET DRIVER Ot I25.10 ATHSCL HEART DISEASE OF [place] CORONARY 10/19/2015 BAIMA, CHANCE L RIVET DRIVER Ot 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 10/20/2015 BAIMA, CHANCE L RIVET DRIVER Ot I25.10 ATHSCL HEART DISEASE OF [place] CORONARY 10/21/2015 BAIMA, CHANCE L RIVET DRIVER Ot E78.4 OTHER HYPERLIPIDEMIA 10/21/2015 BAIMA, CHANCE L RIVET DRIVER Ot I10 ESSENTIAL (PRIMARY) HYPERTENSION 10/21/2015 BAIMA, CHANCE L RIVET DRIVER Ot I25.10 ATHSCL HEART DISEASE OF [place] CORONARY 10/21/2015 BAIMA, CHANCE L RIVET DRIVER Ot 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 10/23/2015 WAICHANCE Mary RIVET DRIVER Ot E78.4 OTHER HYPERLIPIDEMIA 10/23/2015 FLAKOMA CHANCE L RIVET DRIVER Ot I10 ESSENTIAL (PRIMARY) HYPERTENSION 10/23/2015 WAI CHANCE L RIVET DRIVER Ot I25.10 ATHSCL HEART DISEASE OF [place] CORONARY 10/23/2015 CHANCE CARRENO RIVET DRIVER Ot I65.23 OCCLUSION AND STENOSIS OF BILATERAL [...] OTHER SPECIFIED SURGICAL A 10/27/2015 CHANCE CARRENO RIVET DRIVER Ot E78.4 OTHER HYPERLIPIDEMIA 10/27/2015 WAICHANCE Mary RIVET DRIVER Ot I10 ESSENTIAL (PRIMARY) HYPERTENSION 10/27/2015 CHANCE CARRENO RIVET DRIVER Ot I25.10 ATHSCL HEART DISEASE OF [place] CORONARY 10/27/2015 CHANCE CARRENO RIVET DRIVER Ot 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 10/27/2015 FLAKOCHANCE FUNG RIVET DRIVER Ot E78.4 OTHER HYPERLIPIDEMIA 10/27/2015 BAIMACHANCE L RIVET DRIVER Ot I10 ESSENTIAL (PRIMARY) HYPERTENSION 10/27/2015 CHANCE CARRENO L RIVET DRIVER Ot I25.10 ATHSCL HEART DISEASE OF [place] CORONARY 10/27/2015 CHANCE CARRENO RIVET DRIVER Ot I65.23 OCCLUSION AND STENOSIS OF BILATERAL [...] SPECIFIED SURGICAL A 10/27/2015 WAI CHANCE Mary RIVET DRIVER Ot E78.4 OTHER HYPERLIPIDEMIA 10/27/2015 WAICHANCE L RIVET DRIVER Ot I10 ESSENTIAL (PRIMARY) HYPERTENSION 10/27/2015 WAI CHANCE L RIVET DRIVER Ot I25.10 ATHSCL HEART DISEASE OF [place] CORONARY 10/27/2015 BAIMACHANCE L RIVET DRIVER Ot 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 10/27/2015 BAIMA, CHANCE L RIVET DRIVER Ot E78.4 OTHER HYPERLIPIDEMIA 10/27/2015 BAIMA, CHANCE L RIVET DRIVER Ot I10 ESSENTIAL (PRIMARY) HYPERTENSION 10/27/2015 BAIMA, CHANCE L RIVET DRIVER Ot I25.10 ATHSCL HEART DISEASE OF [place] CORONARY 10/27/2015 BAIMA CHANCE L RIVET DRIVER Ot 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 11/06/2015 BAIMACHANCE L RIVET DRIVER Ot E78.4 OTHER HYPERLIPIDEMIA 11/06/2015 BAIMA, CHANCE L RIVET DRIVER Ot I10 ESSENTIAL (PRIMARY) HYPERTENSION 11/06/2015 BAIMA, CHANCE L RIVET DRIVER Ot I25.10 ATHSCL HEART DISEASE OF [place] CORONARY 11/06/2015 BAIMA CHANCE L RIVET DRIVER Ot 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 11/13/2015 BAIMA CHANCE L RIVET DRIVER Ot E78.4 OTHER HYPERLIPIDEMIA 11/13/2015 BAIMA, CHANCE L RIVET DRIVER Ot I10 ESSENTIAL (PRIMARY) HYPERTENSION 11/13/2015 BAIMA, CHANCE L RIVET DRIVER Ot I25.10 ATHSCL HEART DISEASE OF [place] CORONARY 11/13/2015 BAIMAYARIELCHANCE L RIVET DRIVER Ot 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 11/19/2015 ANDREW ASTORGA FAC, KEZIA FACP CCDS Ot 785.2 CARDIAC MURMURS NEC 11/19/2015 ANDREW ASTORGA FACC, ALI FACP CCDS Ot 786.59 CHEST PAIN NEC 11/19/2015 ANDREW ASTORGA FACC, ALI FACP CCDS Ot 785.2 CARDIAC MURMURS NEC 11/19/2015 ANDREW ASTORGA FACC, ALI FACP CCDS Ot 786.59 CHEST PAIN NEC 11/19/2015 MICHELLE ASTORGA, DRWE Barrett Ot 715.36 LOC OSTEOARTH NOS-L/LEG 11/19/2015 [...] SPECIFIED SURGICAL A 11/19/2015 BAIMA, CHANCE L RIVET DRIVER Ot E78.4 OTHER HYPERLIPIDEMIA 11/19/2015 BAIMA, CHANCE L RIVET DRIVER Ot I10 ESSENTIAL (PRIMARY) HYPERTENSION 11/19/2015 BAIMA, CHANCE L RIVET DRIVER Ot I25.10 ATHSCL HEART DISEASE OF [place] CORONARY 11/19/2015 BAIMA, CHANCE L RIVET DRIVER Ot 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 11/19/2015 BAIMA, CHANCE L RIVET DRIVER Ot E78.4 OTHER HYPERLIPIDEMIA 11/19/2015 BAIMA, CHANCE L RIVET DRIVER Ot I10 ESSENTIAL (PRIMARY) HYPERTENSION 11/19/2015 BAIMA, CHANCE L RIVET DRIVER Ot I25.10 ATHSCL HEART DISEASE OF [place] CORONARY 11/19/2015 BAIMA, CHANCE L RIVET DRIVER Ot 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 11/20/2015 BAIMA, CHANCE L RIVET DRIVER Ot E78.4 OTHER HYPERLIPIDEMIA 11/20/2015 BAIMA, CHANCE L RIVET DRIVER Ot I10 ESSENTIAL (PRIMARY) HYPERTENSION 11/20/2015 BAIMA, CHANCE L RIVET DRIVER Ot I25.10 ATHSCL HEART DISEASE OF [place] CORONARY 11/20/2015 BAIMA, CHANCE L RIVET DRIVER Ot 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 11/23/2015 BAIMA, CHANCE L RIVET DRIVER Ot E78.4 OTHER HYPERLIPIDEMIA 11/23/2015 BAIMA, CHANCE L RIVET DRIVER Ot I10 ESSENTIAL (PRIMARY) HYPERTENSION 11/23/2015 BAIMA, CHANCE L RIVET DRIVER Ot I25.10 ATHSCL HEART DISEASE OF [place] CORONARY 11/23/2015 BAIMA, CHANCE L RIVET DRIVER Ot 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 12/11/2015 FLAKOCHANCE FUNG RIVET DRIVER Ot E78.4 OTHER HYPERLIPIDEMIA 12/11/2015 CHANCE CARRENO RIVET DRIVER Ot I10 ESSENTIAL (PRIMARY) HYPERTENSION 12/11/2015 CHANCE CARRENO RIVET DRIVER Ot I25.10 ATHSCL HEART DISEASE OF [place] CORONARY 12/11/2015 CHANCE CARRENO RIVET DRIVER Ot I65.23 OCCLUSION AND STENOSIS OF BILATERAL [...] OTHER SPECIFIED SURGICAL A 03/15/2016 CHANCE CARRENO RIVET DRIVER Ot E78.4 OTHER HYPERLIPIDEMIA 03/15/2016 BAIMA, CHANCE L RIVET DRIVER Ot I10 ESSENTIAL (PRIMARY) HYPERTENSION 03/15/2016 BAIMA, CHANCE L RIVET DRIVER Ot I25.10 ATHSCL HEART DISEASE OF [place] CORONARY 03/15/2016 BAIMA, CHANCE L RIVET DRIVER Ot 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 03/15/2016 BAIMA, CHANCE L RIVET DRIVER Ot E78.4 OTHER HYPERLIPIDEMIA 03/15/2016 BAIMA, CHANCE L RIVET DRIVER Ot I10 ESSENTIAL (PRIMARY) HYPERTENSION 03/15/2016 BAIMA, CHANCE L RIVET DRIVER Ot I25.10 ATHSCL HEART DISEASE OF [place] CORONARY 03/15/2016 BAIMA, CHANCE L RIVET DRIVER Ot 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 03/15/2016 BAIMA, CHANCE L RIVET DRIVER Ot E78.4 OTHER HYPERLIPIDEMIA 03/15/2016 BAIMA, CHANCE L RIVET DRIVER Ot I10 ESSENTIAL (PRIMARY) HYPERTENSION 03/15/2016 BAIMA, CHANCE L RIVET DRIVER Ot I25.10 ATHSCL HEART DISEASE OF [place] CORONARY 03/15/2016 BAIMA, CHANCE L RIVET DRIVER Ot 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 03/15/2016 MAGDIEL MARTINEZ MD Ot K44.9 DIAPHRAGMATIC HERNIA WITHOUT OBSTRUCTION 03/15/2016 MICHELLE ASTORGA, MAGDIEL Berger Ot K92.1 MELENA 03/15/2016 MAGDIEL MARTINEZ MD Ot Z79.02 GEOGRAPHIC INFORMATION SYSTEM ANALYST (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 03/15/2016 MAGDIEL MARTINEZ MD Ot Z79.82 LONGTERM (CURRENT) USE OF ASPIRIN 03/17/2016 MAGDIEL MARTINEZ MD Ot K44.9 DIAPHRAGMATIC HERNIA WITHOUT OBSTRUCTION 03/17/2016 MAGDIEL MARTINEZ MD Ot K92.1 MELENA 03/17/2016 MAGDIEL MARTINEZ MD Ot Z79.02 GEOGRAPHIC INFORMATION SYSTEM ANALYST (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 03/17/2016 MAGDIEL MARTINEZ MD Ot Z79.82 LONGTERM (CURRENT) USE OF ASPIRIN 08/02/2016 ANDREW ASTORGA [...] SPECIFIED SURGICAL A 08/02/2016 BAIMA, CHANCE L RIVET DRIVER Ot E78.4 OTHER HYPERLIPIDEMIA 08/02/2016 BAIMA, CHANCE L RIVET DRIVER Ot I10 ESSENTIAL (PRIMARY) HYPERTENSION 08/02/2016 BAIMA, CHANCE L RIVET DRIVER Ot I25.10 ATHSCL HEART DISEASE OF [place] CORONARY 08/02/2016 BAIMA, CHANCE L RIVET DRIVER Ot 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 08/02/2016 BAIMA, CHANCE L RIVET DRIVER Ot E78.4 OTHER HYPERLIPIDEMIA 08/02/2016 BAIMA, CHANCE L RIVET DRIVER Ot I10 ESSENTIAL (PRIMARY) HYPERTENSION 08/02/2016 BAIMA, CHANCE L RIVET DRIVER Ot I25.10 ATHSCL HEART DISEASE OF [place] CORONARY 08/02/2016 BAIMA, CHANCE L RIVET DRIVER Ot 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 08/02/2016 BAIMA, CHANCE L RIVET DRIVER Ot E78.4 OTHER HYPERLIPIDEMIA 08/02/2016 BAIMA, CHANCE L RIVET DRIVER Ot I10 ESSENTIAL (PRIMARY) HYPERTENSION 08/02/2016 BAIMA, CHANCE L RIVET DRIVER Ot I25.10 ATHSCL HEART DISEASE OF [place] CORONARY 08/02/2016 WAI CHANCE L RIVET DRIVER Ot I65.23 OCCLUSION AND STENOSIS OF BILATERAL [...] CCDS Ot I25.10 ATHSCL HEART DISEASE OF [place] CORONARY 12/14/2016 ANDREW ASTORGA FACC, KEZIA FACP CCDS Ot E78.4 OTHER HYPERLIPIDEMIA 12/14/2016 ANDREW ASTORGA FACC, ALI FACP CCDS Ot I12.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 12/14/2016 ANDREW ASTORGA FACC, ALI FACP CCDS Ot I25.10 ATHSCL HEART DISEASE OF [place] CORONARY 12/14/2016 ANDREW ASTORGA FACC, KEZIA FACP [...] CCDS Ot I25.10 ATHSCL HEART DISEASE OF [place] CORONARY 01/03/2017 ANDREW ASTORGA FACC, ALI FACP [...] CCDS Ot I25.10 ATHSCL HEART DISEASE OF [place] CORONARY 01/10/2017 ANDREW ASTORGA FACC, ALI FACP [...] CCDS Ot I25.10 ATHSCL HEART DISEASE OF [place] CORONARY 06/21/2017 ANDREW ASTORGA FACC, ALI FACP [...] CCDS Ot I25.10 ATHSCL HEART DISEASE OF [place] CORONARY 07/04/2017 ANDREW ASTORGA FACC, ALI FACP [...] CCDS Ot I25.10 ATHSCL HEART DISEASE OF [place] CORONARY 07/10/2017 ANDREW ASTORGA FACC, ALI FACP [...] MD Ot I25.10 ATHSCL HEART DISEASE OF [place] CORONARY 07/14/2017 AMA MOON MD Ot M19.91 [...] MD Ot I25.10 ATHSCL HEART DISEASE OF [place] CORONARY 07/17/2017 AMA MOON MD Ot M19.91 [...] MD Ot I25.10 ATHSCL HEART DISEASE OF [place] CORONARY 07/17/2017 AMA MOON MD Ot M19.91 [...] MD, Ot I25.10 ATHSCL HEART DISEASE OF [place] CORONARY 07/17/2017 AMA MOON MD Ot M19.91 [...] MD Ot I25.10 ATHSCL HEART DISEASE OF [place] CORONARY 07/18/2017 AMA MOON MD Ot M19.91 [...] MD Ot I25.10 ATHSCL HEART DISEASE OF [place] CORONARY 07/18/2017 AMA MOON MD Ot J39.2 [...] SPECIFIED SURGICAL A 07/19/2017 BAIMA, CHANCE L RIVET DRIVER Ot E78.4 OTHER HYPERLIPIDEMIA 07/19/2017 BAIMA, CHANCE L RIVET DRIVER Ot I10 ESSENTIAL (PRIMARY) HYPERTENSION 07/19/2017 BAIMA, CHANCE L RIVET DRIVER Ot I25.10 ATHSCL HEART DISEASE OF [place] CORONARY 07/19/2017 BAIMA, CHANCE L RIVET DRIVER Ot 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 07/19/2017 BAIMA, CHANCE L RIVET DRIVER Ot E78.4 OTHER HYPERLIPIDEMIA 07/19/2017 BAIMA, CHANCE L RIVET DRIVER Ot I10 ESSENTIAL (PRIMARY) HYPERTENSION 07/19/2017 BAIMA, CHANCE L RIVET DRIVER Ot I25.10 ATHSCL HEART DISEASE OF [place] CORONARY 07/19/2017 BAIMA, CHANCE L RIVET DRIVER Ot 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 07/19/2017 BAIMA, CHANCE L RIVET DRIVER Ot E78.4 OTHER HYPERLIPIDEMIA 07/19/2017 BAIMA, CHANCE L RIVET DRIVER Ot I10 ESSENTIAL (PRIMARY) HYPERTENSION 07/19/2017 BAIMA, HCANCE L RIVET DRIVER Ot I25.10 ATHSCL HEART DISEASE OF [place] CORONARY 07/19/2017 BAIMA, CHANCE L RIVET DRIVER Ot I65.23 OCCLUSION AND STENOSIS OF BILATERAL [...] CCDS Ot I25.10 ATHSCL HEART DISEASE OF [place] CORONARY 07/19/2017 ANDREW ASTORGA FACC, ALI FACP CCDS Ot 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.] Ot 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 08/04/2017 ISI ESNA MD, Ot Z95.5 PRESENCE OF CORONARY ANGIOPLASTY [...] MD, Ot I25.10 ATHSCL HEART DISEASE OF [place] CORONARY 08/08/2017 ISI SENA MD, Ot M19.91 [...] MD, Ot I25.10 ATHSCL HEART DISEASE OF [place] CORONARY 08/09/2017 ISI SENA MD, Ot M19.91 [...] MD, Ot I25.10 ATHSCL HEART DISEASE OF [place] CORONARY 08/09/2017 ISI SENA MD, Ot M19.91 [...] MD, Ot I25.10 ATHSCL HEART DISEASE OF [place] CORONARY 08/09/2017 ISI SENA MD, Ot M19.91 [...] MD, Ot I25.10 ATHSCL HEART DISEASE OF [place] CORONARY 08/10/2017 ISI SENA MD, Ot M19.91 [...] MD, Ot I25.10 ATHSCL HEART DISEASE OF [place] CORONARY 08/10/2017 ISI SENA MD, Ot M19.91 [...] Procedures Code Description Performed By Performed On [id number] REPLACE OF L KNEE JT WITH SYNTH SUB, ANGE 01/21/2015 [id number] FUSION 2-6 C JT W INTBD FUS DEV, ANT LATA 07/10/2017 [id number] INSERTION OF FEEDING DEVICE INTO STOMACH 07/17/2017 [id number] INSPECTION OF LARYNX, ENDO 08/10/2017 Results Test [...] - 12:00 MRSA SCREEN RESULT MRSA ISOLATED [facility] Complete blood count (CBC) with automated white [...] culture - 08/02/17 12:46 Bacterial urine culture [id number] NRG COLONY COUNT . NRG FTX;REPORTABLE 40,000 [...] Status Pt. Type Provider Facility Loc./Unit Complaint [id number] 08/12/2017 18:14:00 08/12/2017 18:23:00 DIS Emergency REJI HAGER APRN [facility] ER CONFUSION [id number] 08/02/2017 13:30:00 08/10/2017 16:10:00 DIS Outpatient ISI SENA MD [facility] 4TH SEPSIS,UTI,HEMATURIS, CONFUSION/AGGITATION [id number] 07/25/2017 11:16:00 07/25/2017 23:59:59 CLS Preadmit ISI SENA MD [facility] RAD DYSPHAGIA [id number] 07/19/2017 11:35:00 07/19/2017 13:34:00 DIS Emergency REJI HAGER APRN [facility] ER ABD ISSUES [id number] 07/10/2017 09:56:00 07/18/2017 14:21:00 DIS Inpatient AMA MOON MD [facility] 4TH STENOSIS;DYSPHAGIA [id number] 07/04/2017 12:20:00 07/04/2017 13:05:00 DIS Outpatient AMA MOON MD [facility] PREOP C4-C7 ACDF [id number] 12/13/2016 12:58:00 12/13/2016 23:59:59 CLS Outpatient ANDREW ASTORGA FACC, KEZIA JETT CCDS [facility] 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 [id number] 08/02/2016 15:57:00 08/02/2016 23:59:59 CLS Outpatient YENY FIELD DO [facility] RAD M54.2,M54.6 [id number] 03/15/2016 06:44:00 03/15/2016 09:00:00 DIS Outpatient MAGDIEL MARTINEZ MD [facility] SDC MELANA [id number] 03/11/2016 05:32:00 03/11/2016 12:26:00 DIS Outpatient MAGDIEL MARTINEZ MD [facility] PREOP MELANA [id number] 11/19/2015 07:49:00 11/19/2015 23:59:59 CLS Outpatient BAIKENTON, CHANCE L RIVET DRIVER [facility] CARD CAD,HYPERTENSION [id number] 10/19/2015 11:54:00 10/19/2015 23:59:59 CLS Outpatient BAIMA, CHANCE L RIVET DRIVER [facility] RAD CAD,HTN,HLD [id number] 10/16/2015 10:47:00 10/16/2015 23:59:59 CLS Outpatient BAIMA, CHANCE L RIVET DRIVER [facility] CARD CAD [id number] 08/25/2015 23:58:00 08/26/2015 01:01:00 DIS Emergency MILTON ASTORGA, MARISOL Maldonado [facility] ER BOTH EYELIDS BLEEDING( SURGERY ON 08-25-15) [id number] 07/13/2015 13:50:00 07/13/2015 23:59:59 CLS Outpatient AME RODRIGEZ MD [facility] RAD SPINAL STENOSIS OF LUMBOSACRAL SPINE [id number] 01/21/2015 05:57:00 01/24/2015 12:45:00 DIS Inpatient AME RODRIGEZ MD [facility] 4TH LEFT KNEE SEVERE OSTEOARTHRIS [id number] 01/14/2015 10:10:00 01/14/2015 23:59:59 CLS Outpatient AME RODRIGEZ MD [facility] PREOP LEFT KNEE SEVERE OSTEOARTHRITIS [id number] 09/09/2013 11:13:00 09/09/2013 23:59:59 CLS Outpatient DREW MARTINEZ MD [facility] RAD LT KNEE PAIN [id number] 06/18/2013 08:39:00 06/19/2013 09:30:00 DIS Outpatient ANDREW ASTORGA FACC, ALI FACP CCDS [facility] CATH ANGINA [id number] 04/30/2013 13:55:00 05/01/2013 11:00:00 DIS Outpatient ANDREW ASTORGA FACC, ALI FACP CCDS [facility] CATH CHEST PAIN DYPSENIA HYPERTENSION [id number] 10/25/2012 07:48:00 10/25/2012 23:59:59 CLS Outpatient ANDREW ASTORGA FACC, ALI FACP CCDS [facility] RAD CHEST DISCOMFORT [id number] 10/18/2012 09:33:00 10/18/2012 23:59:59 CLS Outpatient ANDREW ASTORGA FACC ALI FACP CCDS [facility] CARD CHEST DISCOMFORT [id number] 08/14/2017 22:31:00 Document Registration
[2017-08-22] MEDS ORDERED: LORA1TAB PEG (09:06)
[2017-08-22] MEDS ORDERED: ZIPR20CA23 PO (12:49)
== END 2017-08-20 02:45 | disposition home or self-care (01) ==
LOC: EDUNIT# 02:26 → ER 02:27
DX: K94.23 Gastrostomy malfunction (principal); E03.9 Hypothyroidism, unspecified; F03.90 Unspecified dementia, unspecified severity, without behavioral disturbance, psychotic disturbance, mood disturbance, and anxiety; I25.10 Atherosclerotic heart disease of native coronary artery without angina pectoris; E78.00 Pure hypercholesterolemia, unspecified; I10 Essential (primary) hypertension; Z87.891 Personal history of nicotine dependence; Z96.652 Presence of left artificial knee joint; Z79.82 Long term (current) use of aspirin
CPT/HCPCS: 99283

== ENCOUNTER 2017-08-28 10:47 | Inpatient (IN) | payer MEDICARE, OTHER ==
[~2017-08-28] VITALS: Ht 182.9 cm; Wt 75.5 kg
[~2017-08-28 10:47] MED LIST changes: +LORA1TAB PEG; +ZIPR20CA23 PO
[2017-08-28] MEDS ORDERED: RT-ALBUTEROL/IPRATROPIUM 3 ML (DUONEB) VIAL ONE (11:08)
--- NOTE | 2017-08-28 11:11 | ED Respiratory ---
General Chief Complaint: Respiratory Problems Stated Complaint: FEVER,RESP DISTRESS Source: EMS Exam Limitations: no limitations History of Present Illness Date Seen by Provider: Aug 28, 2017 Time Seen by Provider: 11:09 Initial Comments elderlyfrail-appearing male from [facility] with respiratory distress and fever. He was here recently for PEG tube replacement as he has a habit of pulling these out. He had a cervical fusion earlier this year and has had subsequent dysphasia and recurrence of aspiration pneumonia. He was febrile per EMS at 100.3, heart rate 100, oxygen saturation 88% on room air,blood pressure 140/80. He remains full code Timing/Duration: constant Severity: moderate Associated Symptoms: cough, fever/chills, shortness of breath Allergies and Home Medications Allergies Coded Allergies: No Known Drug Allergies (Unverified , 10/25/12) Home Medications Acetaminophen 325 Mg Tablet, 650 MG PO Q4H PRN for TEMPATURE OR MILD PAIN, ( Reported) Aspirin 81 Mg Tab.chew, 162 MG PEG DAILY, (Reported) TAKE 2 (81MG) TABS Dorzolamide HCl/Timolol Maleat 10 Ml Drops, 1 DROP OU BID, (Reported) Famotidine 20 Mg Tablet, 20 MG PEG BID, (Reported) Glycerin/Propylene Glycol 30 Ml Drops, 1 DROP OU QID PRN for DRY EYES, (Reported ) Lactose-Reduced Food/Fiber 237 Ml Liquid, 237 ML PEG 5XD, (Reported) Levothyroxine Sodium 88 Mcg Tablet, 88 MCG PEG DAILY, (Reported) Lorazepam 1 Mg Tablet, 1 MG PEG Q4H PRN for AGITATION, (Reported) Loteprednol Etabonate 5 Gm Drops.gel, 1 DROP OD 1800, (Reported) Magnesium Hydroxide 400 Mg/5 Ml Oral.susp, 30 ML PEG DAILY PRN for CONSTIPATION- 7TH LINE, (Reported) Melatonin 3 Mg Tablet, 3 MG PO HS, (Reported) Metoprolol Succinate 100 Mg Tab.er.24h, 100 MG PEG DAILY, (Reported) HOLD AND NOTIFY PHYSICIAN FOR SYSTOLIC LESS THAN 100 AND OR DIASTOLIC LESS THAN 60. HOLD AND NOTIFY PHYSICIAN FOR PULSE LESS THAN OR EQUAL TO 60 Tramadol HCl 50 Mg Tablet, 50 MG PO Q6H PRN for PAIN-MODERATE, (Reported) Ziprasidone HCl 20 Mg Capsule, 20 MG PO Q12H Prescribed by: ISI SENA on 08/22/17 1249 Patient Home Medication List Home Medication List Reviewed: Yes Review of Systems Constitutional: see HPI, fever EENTM: see HPI Respiratory: see HPI, cough, short of breath Cardiovascular: no symptoms reported Genitourinary: no symptoms reported Musculoskeletal: no symptoms reported Skin: no symptoms reported Psychiatric/Neurological: No Symptoms Reported Hematologic/Lymphatic: No Symptoms Reported Immunological/Allergic: no symptoms reported Past Fljsrgx-Medgqo-Ttvtnc Hx Patient Social History Type Used: Cigarettes Former Smoker, Quit: Mar 11, 1989 2nd Hand Smoke Exposure: No Recent Hopitalizations: Yes Immunizations Up To Date Date of Pneumonia Vaccine: Nov 12, 2015 Date of Influenza Vaccine: Dec 06, 2015 Seasonal Allergies Seasonal Allergies: No Past Medical History Surgeries: Yes (CORNEA TRANSPLANT, MASTOIDECTOMY, eyelid reduction, L TKR, neck , PEG tube) Gallbladder, Joint Replacement, Orthopedic Respiratory: No Cardiac: Yes (STENTS X2-LAST ONE COUPLE YEARS AGO) Coronary Artery Disease, High Cholesterol, Hypertension Neurological: Yes (dysphagia) Dementia Reproductive Disorders: No Sexually Transmitted Disease: No HIV/AIDS: No Genitourinary: Yes (joe cath since having sx on cervical spin for stenosis) UTI-Chronic Gastrointestinal: Yes (peg tube placement since having sx on cervical spine for stenosis) Chronic Constipation Musculoskeletal: Yes (spinal stenosis, ) Arthritis, Chronic Back Pain Endocrine: No Hypothyroidsim HEENT: Yes Glaucoma Loss of Vision: Bilateral Hearing Impairment: Denies Cancer: No Psychosocial: No Integumentary: No Blood Disorders: No Adverse Reaction/Blood Tranf: No Family Medical History LUNG CANCER G8 BROTHER Myocardial infarction 19 MOTHER Physical Exam Vital Signs Vital Signs - First Documented 08/28/17 11:14 Pulse 89 Resp 23 Pulse Ox 100 O2 Flow Rate 60.00 Capillary Refill : General Appearance: WD/WN, moderate distress (ttachypneic diminished lung sounds and rhonchi throughout) Eyes: Bilateral Eye Normal Inspection, Bilateral Eye PERRL, Bilateral Eye EOMI HEENT: PERRL/EOMI, normal ENT inspection Neck: non-tender, full range of motion Respiratory: no respiratory distress, no accessory muscle use, accessory muscle use, rhonchi Cardiovascular: regular rate, rhythm, no murmur Gastrointestinal: normal bowel sounds, non tender, soft Neurologic/Psychiatric: alert, normal mood/affect, oriented x 3 Skin: normal color, warm/dry Focused Exam Lactate Level 08/28/17 11:00: Lactic Acid Level 1.48 Lactic Acid Level Laboratory Tests Test 08/28/17 11:00 Lactic Acid Level 1.48 MMOL/L (0.50-2.00) Progress/Results/Core Measures Suspected Sepsis SIRS Temperature: Pulse: Respiratory Rate: Laboratory Tests 08/28/17 11:00: White Blood Count 9.3 Blood Pressure / Mean: 08/28/17 11:00: Lactic Acid Level 1.48 Laboratory Tests 08/28/17 11:00: Creatinine 2.23H, INR Comment 1.1, Platelet Count 291, Total Bilirubin 0.9 Results/Orders Lab Results Laboratory Tests Test 08/28/17 11:00 08/28/17 11:40 Range/Units White Blood Count 9.3 4.3-11.0 10^3/uL Red Blood Count 3.62 L 4.35-5.85 10^6/uL Hemoglobin 10.8 L 13.3-17.7 G/DL Hematocrit 33 L 40-54 % Mean Corpuscular Volume 91 80-99 FL Mean Corpuscular Hemoglobin 30 25-34 PG Mean Corpuscular Hemoglobin Concent 33 32-36 G/DL Red Cell Distribution Width 13.7 10.0-14.5 % Platelet Count 291 130-400 10^3/uL Mean Platelet Volume 10.9 H 7.4-10.4 FL Neutrophils (%) (Auto) 87 H 42-75 % Lymphocytes (%) (Auto) 6 L 12-44 % Monocytes (%) (Auto) 7 0-12 % Eosinophils (%) (Auto) 0 0-10 % Basophils (%) (Auto) 0 0-10 % Neutrophils # (Auto) 8.1 H 1.8-7.8 X 10^3 Lymphocytes # (Auto) 0.6 L 1.0-4.0 X 10^3 Monocytes # (Auto) 0.6 0.0-1.0 X 10^3 Eosinophils # (Auto) 0.0 0.0-0.3 10^3/uL Basophils # (Auto) 0.0 0.0-0.1 10^3/uL Neutrophils % (Manual) 84 % Lymphocytes % (Manual) 9 % Monocytes % (Manual) 4 % Eosinophils % (Manual) 0 % Basophils % (Manual) 0 % Band Neutrophils 3 % Blood Morphology Comment NORMAL Prothrombin Time 14.2 12.2-14.7 SEC INR Comment 1.1 0.8-1.4 Activated Partial Thromboplast Time 30 24-35 SEC Sodium Level 132 L 135-145 MMOL/L Potassium Level 4.8 3.6-5.0 MMOL/L Chloride Level 95 L 98-107 MMOL/L Carbon Dioxide Level 24 21-32 MMOL/L Anion Gap 13 5-14 MMOL/L Blood Urea Nitrogen 41 H 7-18 MG/DL Creatinine 2.23 H 0.60-1.30 MG/DL Estimat Glomerular Filtration Rate 28 BUN/Creatinine Ratio 18 Glucose Level 113 H 70-105 MG/DL Lactic Acid Level 1.48 0.50-2.00 MMOL/L Calcium Level 9.6 8.5-10.1 MG/DL Total Bilirubin 0.9 0.1-1.0 MG/DL Aspartate Amino Transf (AST/SGOT) 35 H 5-34 U/L Alanine Aminotransferase (ALT/SGPT) 36 0-55 U/L Alkaline Phosphatase 87 40-136 U/L Total Protein 7.9 6.4-8.2 GM/DL Albumin 3.5 3.2-4.5 GM/DL Urine Color YELLOW Urine Clarity CLEAR Urine pH 6.5 5-9 Urine Specific [place] 1.010 L 1.016-1.022 Urine Protein 1+ H NEGATIVE Urine Glucose (UA) NEGATIVE NEGATIVE Urine Ketones NEGATIVE NEGATIVE Urine Nitrite NEGATIVE NEGATIVE Urine Bilirubin NEGATIVE NEGATIVE Urine Urobilinogen NORMAL NORMAL MG/DL Urine Leukocyte Esterase 3+ H NEGATIVE Urine RBC (Auto) NEGATIVE NEGATIVE Urine RBC NONE /HPF Urine WBC 2-5 /HPF Urine Squamous Epithelial Cells RARE /HPF Urine Crystals NONE /LPF Urine Bacteria FEW H /HPF Urine Casts NONE /LPF Urine Mucus NEGATIVE /LPF Urine Culture Indicated YES My Orders Orders - REJI HAGER APRN Cbc With Automated Diff (08/28/17 11:05) Comprehensive Metabolic Panel (08/28/17 11:05) Lactic Acid Analyzer (08/28/17 11:05) Blood Culture (08/28/17 11:05) Sputum Culture (08/28/17 11:05) Ua Culture If Indicated (08/28/17 11:05) Protime With Inr (08/28/17 11:05) Partial Thromboplastin Time (08/28/17 11:05) Chest 1 View, Ap/Pa Only (08/28/17 11:05) O2 (08/28/17 11:05) Saline Lock/Iv-Start (08/28/17 11:05) Saline Lock/Iv-Start (08/28/17 11:05) Ekg Tracing (08/28/17 11:05) Vital Signs Adult Sepsis Patie Q15M (08/28/17 11:05) Remove Rings In Anticipation O (08/28/17 11:05) Bipap (Bilevel) Set Up (08/28/17 11:07) Albuterol/Ipra Inhalation Soln (Duoneb I (08/28/17 11:08) Manual Differential (08/28/17 11:00) Ns Iv 1000 Ml (Sodium Chloride 0.9%) (08/28/17 11:45) Urine Culture (08/28/17 11:40) Medications Given in ED Current Medications Medications Dose Ordered Sig/Moshe Route Start Time Stop Time Status Last Admin Dose Admin Albuterol/ Ipratropium 3 ml STK-MED ONCE .ROUTE 08/28/17 11:08 08/28/17 11:09 DC 08/28/17 11:13 3 ML Vital Signs/I&O 08/28/17 08/28/17 11:14 11:20 Pulse 89 Resp 23 Pulse Ox 100 O2 Flow Rate 60.00 40.00 Capillary Refill : Departure Communication (Admissions) Time/Spoke to Admitting Phy: 12:[address] Sena agrees to admit, kiko Earl protocol and he'll see him later today. 118-I discussed or rather updated the patient's son Hoang who is employed here. He states that his father does not want to be resuscitated with CPR should that need arise. He will be a DO NOT RESUSCITATE status.currently is on the BiPAP. Impression Primary Impression: Respiratory distress Additional Impressions: Aspiration into airway Renal failure Disposition: ADMITTED INPATIENT Condition: Stable Admissions Decision to Admit Reason: Admit from ER (General) Decision to Admit/Date: Aug 28, 2017 Time/Decision to Admit Time: 12:06 Departure-Patient Inst. Referrals: ISI SENA MD (PCP/Family) Primary Care Physician REJI HAGER APRN Aug 28, 2017 11:11
[2017-08-28 11:17] LABS: BASOPHILS % (AUTO) 0 % (0-10); EOSINOPHILS % (AUTO) 0 % (0-10); HEMATOCRIT 33 % (40-54); HEMOGLOBIN 10.8 G/DL (13.3-17.7); LYMPHOCYTES # (AUTO) 0.6 X 10^3 (1.0-4.0); LYMPHOCYTES % (AUTO) 6 % (12-44); MEAN CORPUSCULAR HEMOGLOBIN 30 PG (25-34); MEAN CORPUSCULAR HGB CONC 33 G/DL (32-36); MEAN CORPUSCULAR VOLUME 91 FL (80-99); MEAN PLATELET VOLUME 10.9 FL (7.4-10.4); MONOCYTES # (AUTO) 0.6 X 10^3 (0.0-1.0); MONOCYTES % (AUTO) 7 % (0-12); NEUTROPHILS # (AUTO) 8.1 X 10^3 (1.8-7.8); NEUTROPHILS % (AUTO) 87 % (42-75); PLATELET COUNT 291 10^3/uL (130-400); RED BLOOD COUNT 3.62 10^6/uL (4.35-5.85); RED CELL DISTRIBUTION WIDTH 13.7 % (10.0-14.5); WHITE BLOOD COUNT 9.3 10^3/uL (4.3-11.0)
--- NOTE | 2017-08-28 11:23 | Diagnostic Imaging Report ---
PATIENT HISTORY: Respiratory distress. TECHNIQUE: Single frontal view of the chest. COMPARISON: 08/15/2017 FINDINGS: Lung volumes are mildly low. There are linear opacities in right lung base, likely atelectasis or scarring. The cardiac silhouette is normal in size. There is mild central vascular congestion. No pleural effusion or pneumothorax is seen. No displaced fractures are identified. IMPRESSION: 1. Persistent linear opacities in right lung base, likely atelectasis or scarring. Mild central vascular congestion. Low lung volumes. Dictated by: Dictated on workstation # [id number]
[2017-08-28 11:29] LABS: INR 1.1 (0.8-1.4); PROTHROMBIN TIME PATIENT 14.2 SEC (12.2-14.7)
[2017-08-28 11:40] LABS: ALBUMIN 3.5 GM/DL (3.2-4.5); BILIRUBIN,TOTAL 0.9 MG/DL (0.1-1.0); CALCIUM 9.6 MG/DL (8.5-10.1); CREATININE SERUM 2.23 MG/DL (0.60-1.30); POTASSIUM 4.8 MMOL/L (3.6-5.0); TOTAL PROTEIN 7.9 GM/DL (6.4-8.2)
[2017-08-28] MEDS ORDERED: NS IV 1000 ML 1,000 ML IV SCH (11:45)
[2017-08-28 11:49] LABS: BILIRUBIN,URINE NEGATIVE (NEGATIVE); CLARITY,URINE CLEAR; COLOR,URINE YELLOW; GLUCOSE, URINE (UA) NEGATIVE (NEGATIVE); KETONES,URINE NEGATIVE (NEGATIVE); LEUKOCYTE ESTERASE ,URINE 3+ (NEGATIVE); NITRITE,URINE NEGATIVE (NEGATIVE); PH,URINE 6.5 (5-9); PROTEIN,URINE 1+ (NEGATIVE); UROBILINOGEN,URINE NORMAL (NORMAL)
[2017-08-28 11:53] LABS: BAND NEUTROPHILS 3 %; BASOPHILS % (MANUAL) 0 %; EOSINOPHILS % (MANUAL) 0 %; LYMPHOCYTES % (MANUAL) 9 %; MONOCYTES % (MANUAL) 4 %; NEUTROPHILS % (MANUAL) 84 %; RBC MORPH NORMAL
[2017-08-28 12:01] LABS: BACTERIA,URINE FEW /HPF; SQUAMOUS EPITHELIAL CELL,UR RARE /HPF
[2017-08-28 12:55] VITALS: BP 150/69
[2017-08-28] MEDS ORDERED: PIPERACILLIN/TAZO3.375 GM/D5W 100 ML IV NR ×2 (13:15)
[2017-08-28] MEDS ORDERED: CATHETER FLUSH 10 ML SYR IV PRN (13:15)
[2017-08-28] MEDS: ACETAMINOPHEN 325 MG TABLET PO PRN (13:17)
[2017-08-28] MEDS: NS IV 1000 ML 1,000 ML IV SCH ×2 (13:58→16:10)
[2017-08-28] MEDS ORDERED: RT-ALBUTEROL/IPRATROPIUM 3 ML (DUONEB) VIAL INH PRN (15:30)
[2017-08-28 15:35] VITALS: BP 122/66
[2017-08-28] MEDS ORDERED: METO50TA15 PEG (16:17)
[2017-08-28] MEDS ORDERED: ZIPR20CA23 PO (16:17)
[2017-08-28] MEDS: RT-ALBUTEROL/IPRATROPIUM 3 ML (DUONEB) VIAL INH SCH ×2 (18:32→21:54)
--- NOTE | 2017-08-28 18:44 | History & Physicial ---
History of Present Illness History of Present Illness Reason for visit/HPI 82-year-old male admitted through the emergency department after apparently having a fever and call from via [facility]. Patient has been in poor health recently due to dysphagia that he unfortunately suffered from after cervical neck surgery. Patient is currently being fed by PEG tube. He has been receiving nutrition with Jevity carton 5 times a day followed by 200 cc of water after each Carton He had previously been a full code but it has been noted that the emergency department had conversation with his son and it is apparent that he would like to be a DNR should his breathing or heart fails him. Date of Admission Aug 28, 2017 at 12:05 Date Seen by Provider: Aug 28, 2017 Time Seen by Provider: 16:40 I consulted on this patient on 08/28/17 18:38 Attending Physician Bipin Sena MD Admitting Physician Bipin Sena MD Consult Allergies and Home Medications Allergies Coded Allergies: No Known Drug Allergies (Unverified , 10/25/12) Home Medications Acetaminophen 325 Mg Tablet, 650 MG PO Q4H PRN for TEMPATURE OR MILD PAIN, ( Reported) Aspirin 81 Mg Tab.chew, 81 MG PEG DAILY, (Reported) Dorzolamide HCl/Timolol Maleat 10 Ml Drops, 1 DROP OU BID, (Reported) Famotidine 20 Mg Tablet, 20 MG PEG BID, (Reported) Glycerin/Propylene Glycol 30 Ml Drops, 1 DROP OU QID PRN for DRY EYES, (Reported ) Lactose-Reduced Food/Fiber 237 Ml Liquid, 237 ML PEG 5XD, (Reported) Levothyroxine Sodium 88 Mcg Tablet, 88 MCG PEG DAILY, (Reported) Lorazepam 1 Mg Tablet, 1 MG PEG Q4H PRN for AGITATION, (Reported) Loteprednol Etabonate 5 Gm Drops.gel, 1 DROP OD 1800, (Reported) Magnesium Hydroxide 400 Mg/5 Ml Oral.susp, 30 ML PEG DAILY PRN for CONSTIPATION- 7TH LINE, (Reported) Melatonin 3 Mg Tablet, 3 MG PO HS, (Reported) Metoprolol Tartrate 50 Mg Tablet, 50 MG PEG BID, (Reported) Tramadol HCl 50 Mg Tablet, 50 MG PO Q6H PRN for PAIN-MODERATE, (Reported) Ziprasidone HCl 20 Mg Capsule, 20 MG PO Q12H, (Reported) Patient Home Medication List Home Medication List Reviewed: Yes Past Oxepcll-Drbrkf-Olrpkd Hx Patient Social History Marrital Status: Number of Children: 2 Alcohol Use: Denies Use Recreational Drug Use: No Former Smoker, Quit: Mar 11, 1989 Type Used: Cigarettes 2nd Hand Smoke Exposure: No Physical Abuse Screen: No Sexual Abuse: No Recent Foreign Travel: No Contact w/other who traveled: No Recent Hopitalizations: Yes Recent Infectious Disease Expo: No Immunizations Up To Date Date of Pneumonia Vaccine: Nov 12, 2015 Date of Influenza Vaccine: Dec 06, 2015 Seasonal Allergies Seasonal Allergies: No Surgeries Yes (CORNEA TRANSPLANT, MASTOIDECTOMY, eyelid reduction, L TKR, neck, PEG tube) Gallbladder, Joint Replacement, Orthopedic Respiratory No Cardiovascular Yes (STENTS X2-LAST ONE COUPLE YEARS AGO) Coronary Artery Disease, High Cholesterol, Hypertension Neurological Yes (dysphagia) Dementia Reproductive System Hx Reproductive Disorders: No Sexually Transmitted Disease: No HIV/AIDS: No Genitourinary Yes (joe cath since having sx on cervical spin for stenosis) UTI-Chronic Gastrointestinal Yes (peg tube placement since having sx on cervical spine for stenosis) Chronic Constipation Musculoskeletal Yes (spinal stenosis, ) Arthritis, Chronic Back Pain Endocrine History of Endocrine Disorders: No Endocrine Disorders: Hypothyroidsim HEENT History of HEENT Disorders: Yes HEENT Disorders: Glaucoma Loss of Vision: Bilateral Hearing Impairment: Denies Cancer No Psychosocial History of Psychiatric Problem: No Integumentary History of Skin or Integumenta: No Blood Transfusions History of Blood Disorders: No Adverse Reaction to a Blood Tr: No Family Medical History Family Hx: LUNG CANCER G8 BROTHER Myocardial infarction 19 MOTHER Constitutional: see HPI Physical Exam Vital Signs Vital Signs - First Documented 08/28/17 08/28/17 10:47 11:14 Temp 96.9 Pulse 103 Resp 25 B/P (MAP) 143/85 (104) Pulse Ox 100 O2 Delivery Nasal Cannula O2 Flow Rate 5.00 Capillary Refill : Greater Than 3 Seconds General Appearance: No Apparent Distress, Cachetic Eyes: Bilateral Eye Normal Inspection HEENT: Other (ucous membranes are ry but he is currently wearing BiPAP) Neck: Non Tender Respiratory: Crackles, Decreased Breath Sounds Cardiovascular: Regular Rate, Rhythm Gastrointestinal: Soft (with no apparent guarding) Rectal: Deferred Extremity: Normal Capillary Refill Neurologic/Psychiatric: Alert, Other (communication poor) Skin: Normal Color Lymphatic: No Adenopathy Comments NAME: ROSALBA SMITH [facility] REC#: [id number] PT STATUS: REG ER : 1935 PHYSICIAN: REJI HAGER APRN ADMIT DATE: 08/28/17/ER Signed Date of Exam: 08/28/17 CHEST 1 VIEW, AP/PA ONLY PATIENT HISTORY: Respiratory distress. TECHNIQUE: Single frontal view of the chest. COMPARISON: 08/15/2017 FINDINGS: Lung volumes are mildly low. There are linear opacities in right lung base, likely atelectasis or scarring. The cardiac silhouette is normal in size. There is mild central vascular congestion. No pleural effusion or pneumothorax is seen. No displaced fractures are identified. IMPRESSION: 1. Persistent linear opacities in right lung base, likely atelectasis or scarring. Mild central vascular congestion. Low lung volumes. Dictated by: Dictated on workstation # [id number] Dict: 08/28/17 1120 Trans: 08/28/17 1136 Interpreted by: KEVIN GARRISON MD Electronically signed by: KEVIN GARRISON MD 08/28/17 1136 Assessment/Plan Assessment and Plan 1. Cough and this may be early aspiration pneumonia -patient to be initiated on Zosyn -MAT protocol per RT -patient is now DNR, after emergency room discussion with his son Hoang 2. Dehydration -IV fluid rehydration -We will initiate in the a.m. of August 29his Jevity feedings. 3. Ongoing dysphagia due to complications of cervical neck surgery -Continued waiting for passing swallow study 4. Hypothyroidism -to be maintained on his levothyroxin Admission Diagnosis 1. Cough and this may be early aspiration pneumonia 2. Dehydration 3. Ongoing dysphagia due to complications of cervical neck surgery 4. Hypothyroidism Admission Status: Inpatient Order (span 2 midnights) Reason for Inpatient Admission: further IV fluids for his Detrol hydration as well as Zosyn for suspected aspiration pneumonia not apparent by current chest film due to his fluid status Clinical Quality Measures DVT/VTE Risk/Contraindication: Risk Factor Score Per Nursin RFS Level Per Nursing on Admit: 4+=Very High BIPIN SENA MD Aug 28, 2017 18:43
[2017-08-28] MEDS ORDERED: ACETAMINOPHEN 650 MG SUPP (TYLENOL) PR PRN (18:45)
[2017-08-28] MEDS ORDERED: MILK OF MAGNESIA 400 MG/5 ML 30 ML UDC PEG PRN (19:00)
[2017-08-28 20:00] VITALS: BP 122/69
[2017-08-28] MEDS: ZIPRASIDONE 20 MG (GEODON) CAP PEG SCH (20:27)
[2017-08-28] MEDS: DORZOLAMIDE/TIMOLOL (COSOPT) 2-0.68% 10 ML BTL OU SCH (20:27)
[2017-08-28] MEDS: meTOprolol TARTRATE 50 MG (LOPRESSOR) TAB PEG SCH (20:28)
[2017-08-28] MEDS: LORazepam 1 MG (ATIVAN) TAB PEG PRN (20:28)
[2017-08-28] MEDS: PIPERACILLIN/TAZO 3.375 GM/D5W 100 ML IV SCH ×2 (20:28)
[2017-08-28] MEDS ORDERED: FAMOTIDINE 20 MG (PEPCID) TABLET PEG SCH (21:00)
[2017-08-29] VITALS (7 sets, daily range): BP systolic 124–159; BP diastolic 59–87
[2017-08-29] MEDS: NS IV 1000 ML 1,000 ML IV SCH ×2 (00:10→08:29)
[2017-08-29] MEDS: RT-ALBUTEROL/IPRATROPIUM 3 ML (DUONEB) VIAL INH SCH ×6 (02:26→22:00)
[2017-08-29] MEDS: PIPERACILLIN/TAZO 3.375 GM/D5W 100 ML IV SCH ×6 (04:11→20:04)
[2017-08-29] MEDS: ZIPRASIDONE 20 MG (GEODON) CAP PEG SCH ×2 (06:05→18:04)
[2017-08-29 06:41] LABS: BASOPHILS % (AUTO) 0 % (0-10); EOSINOPHILS # (AUTO) 0.1 10^3/uL (0.0-0.3); EOSINOPHILS % (AUTO) 1 % (0-10); HEMATOCRIT 28 % (40-54); HEMOGLOBIN 9.3 G/DL (13.3-17.7); LYMPHOCYTES # (AUTO) 0.7 X 10^3 (1.0-4.0); LYMPHOCYTES % (AUTO) 9 % (12-44); MEAN CORPUSCULAR HEMOGLOBIN 31 PG (25-34); MEAN CORPUSCULAR HGB CONC 33 G/DL (32-36); MEAN CORPUSCULAR VOLUME 92 FL (80-99); MEAN PLATELET VOLUME 11.6 FL (7.4-10.4); MONOCYTES # (AUTO) 0.7 X 10^3 (0.0-1.0); MONOCYTES % (AUTO) 9 % (0-12); NEUTROPHILS # (AUTO) 6.4 X 10^3 (1.8-7.8); NEUTROPHILS % (AUTO) 81 % (42-75); PLATELET COUNT 215 10^3/uL (130-400); RED BLOOD COUNT 3.05 10^6/uL (4.35-5.85); RED CELL DISTRIBUTION WIDTH 13.4 % (10.0-14.5); WHITE BLOOD COUNT 7.9 10^3/uL (4.3-11.0)
[2017-08-29 07:11] LABS: ALBUMIN 2.8 GM/DL (3.2-4.5); BILIRUBIN,TOTAL 0.7 MG/DL (0.1-1.0); CALCIUM 8.9 MG/DL (8.5-10.1); CREATININE SERUM 1.5 MG/DL (0.60-1.30); POTASSIUM 4.4 MMOL/L (3.6-5.0); TOTAL PROTEIN 6.3 GM/DL (6.4-8.2)
--- NOTE | 2017-08-29 07:39 | Progress Note (SOAP) ---
Subjective Date Seen by Provider: Aug 29, 2017 Time Seen by Provider: 07:30 Subjective/Events-last exam Patient was admitted yesterday afternoon following oxygen saturations of 88 percent at [facility]. He has been admitted for further IV fluids and antibiotics. He has been on BiPAP since admission to maintain saturations. His level of appropriateness her responsiveness is minimal. He still is somewhat fidgety and pulling on tubes. Focused Exam Lactate Level 08/28/17 11:00: Lactic Acid Level 1.48 Objective Exam Vital Signs Date Time Temp Pulse Resp B/P (MAP) Pulse Ox O2 Delivery O2 Flow Rate FiO2 08/29/17 06:48 103 99 45.00 08/29/17 04:01 98.2 92 22 155/70 (98) 99 NIV Bilevel 08/29/17 02:27 94 99 45.00 08/29/17 02:10 98.0 86 23 128/87 (101) 100 NIV Bilevel 08/29/17 01:00 NIV Bilevel 45.00 08/29/17 01:00 NIV Bilevel 45.00 08/29/17 01:00 94 08/29/17 00:53 85 100 50.00 08/29/17 00:06 98.0 86 23 128/87 (101) 100 NIV Bilevel 08/28/17 21:58 NIV Bilevel 50.00 08/28/17 21:58 NIV Bilevel 50.00 08/28/17 21:57 84 100 60.00 08/28/17 21:00 100 NIV Bilevel 60.00 08/28/17 20:00 98.7 61 20 122/69 (86) 93 NIV Bilevel 08/28/17 19:00 103 08/28/17 18:36 99 98 60.00 08/28/17 15:35 99.8 80 20 122/66 (84) 100 NIV Bilevel 08/28/17 14:28 101 99 60.00 08/28/17 14:23 108 08/28/17 13:58 101.1 08/28/17 13:17 102.4 08/28/17 13:05 100 08/28/17 12:55 102.4 110 22 150/69 (96) 100 NIV Bilevel 08/28/17 12:42 97.4 80 25 150/80 100 NIV Bilevel 08/28/17 11:20 40.00 08/28/17 11:14 89 23 100 60.00 08/28/17 10:47 96.9 103 25 143/85 (104) Nasal Cannula 5.00 I & O 08/29/17 07:00 Intake Total 1400 ml Output Total 3100 ml Balance -1700 ml Capillary Refill : Greater Than 3 Seconds General Appearance: No Apparent Distress Respiratory: Lungs Clear (But distant) Cardiovascular: Regular Rate, Rhythm Gastrointestinal: soft Extremity: Normal Capillary Refill, No Pedal Edema Skin: Warm/Dry Results Lab Laboratory Tests 08/28/17 11:00: White Blood Count 9.3, Red Blood Count 3.62L, Hemoglobin 10.8L, Hematocrit 33L, Mean Corpuscular Volume 91, Mean Corpuscular Hemoglobin 30, Mean Corpuscular Hemoglobin Concent 33, Red Cell Distribution Width 13.7, Platelet Count 291, Mean Platelet Volume 10.9H, Neutrophils (%) (Auto) 87H, Lymphocytes (%) (Auto) 6L, Monocytes (%) (Auto) 7, Eosinophils (%) (Auto) 0, Basophils (%) (Auto) 0, Neutrophils # (Auto) 8.1H, Lymphocytes # (Auto) 0.6L, Monocytes # (Auto) 0.6, Eosinophils # (Auto) 0.0, Basophils # (Auto) 0.0, Neutrophils % (Manual) 84, Lymphocytes % (Manual) 9, Monocytes % (Manual) 4, Eosinophils % (Manual) 0, Basophils % (Manual) 0, Band Neutrophils 3, Blood Morphology Comment NORMAL, Prothrombin Time 14.2, INR Comment 1.1, Activated Partial Thromboplast Time 30, Sodium Level 132L, Potassium Level 4.8, Chloride Level 95L, Carbon Dioxide Level 24, Anion Gap 13, Blood Urea Nitrogen 41H, Creatinine 2.23H, Estimat Glomerular Filtration Rate 28, BUN/Creatinine Ratio 18, Glucose Level 113H, Lactic Acid Level 1.48, Calcium Level 9.6, Total Bilirubin 0.9, Aspartate Amino Transf (AST/SGOT) 35H, Alanine Aminotransferase (ALT/SGPT) 36, Alkaline Phosphatase 87, Total Protein 7.9, Albumin 3.5 08/28/17 11:40: Urine Color YELLOW, Urine Clarity CLEAR, Urine pH 6.5, Urine Specific [place] 1.010L, Urine Protein 1+H, Urine Glucose (UA) NEGATIVE, Urine Ketones NEGATIVE, Urine Nitrite NEGATIVE, Urine Bilirubin NEGATIVE, Urine Urobilinogen NORMAL, Urine Leukocyte Esterase 3+H, Urine RBC (Auto) NEGATIVE, Urine RBC NONE, Urine WBC 2-5, Urine Squamous Epithelial Cells RARE, Urine Crystals NONE, Urine Bacteria FEWH, Urine Casts NONE, Urine Mucus NEGATIVE, Urine Culture Indicated YES 08/29/17 05:17: White Blood Count 7.9, Red Blood Count 3.05L, Hemoglobin 9.3L, Hematocrit 28L, Mean Corpuscular Volume 92, Mean Corpuscular Hemoglobin 31, Mean Corpuscular Hemoglobin Concent 33, Red Cell Distribution Width 13.4, Platelet Count 215, Mean Platelet Volume 11.6H, Neutrophils (%) (Auto) 81H, Lymphocytes (%) (Auto) 9L, Monocytes (%) (Auto) 9, Eosinophils (%) (Auto) 1, Basophils (%) (Auto) 0, Neutrophils # (Auto) 6.4, Lymphocytes # (Auto) 0.7L, Monocytes # (Auto) 0.7, Eosinophils # (Auto) 0.1, Basophils # (Auto) 0.0, Sodium Level 138, Potassium Level 4.4, Chloride Level 104, Carbon Dioxide Level 23, Anion Gap 11, Blood Urea Nitrogen 30H, Creatinine 1.50H, Estimat Glomerular Filtration Rate 45, BUN/ Creatinine Ratio 20, Glucose Level 100, Calcium Level 8.9, Total Bilirubin 0.7, Aspartate Amino Transf (AST/SGOT) 29, Alanine Aminotransferase (ALT/SGPT) 32, Alkaline Phosphatase 75, Total Protein 6.3L, Albumin 2.8L Microbiology 08/28/17 Blood Culture - Preliminary, Resulted Probable Enterococcus Species 08/28/17 Urine Culture - Preliminary, Resulted Sent To [facility] Assessment/Plan Assessment/Plan Assess & Plan/Chief Complaint 1. Cough and this may be early aspiration pneumonia -patient to be initiated on Zosyn -MAT protocol per RT -patient is now DNR, after emergency room discussion with his son Hoang 08/29: Microbiology has informed me that enterococcus species is growing from 2 of the blood cultures from emergency department. 2. Dehydration -IV fluid rehydration -We will initiate in the a.m. of August 29his Jevity feedings. 08/29: Initiate tube feedings with Jevity 5 times daily for nutrition 3. Ongoing dysphagia due to complications of cervical neck surgery -Continued waiting for passing swallow study 4. Hypothyroidism -to be maintained on his levothyroxin Clinical Quality Measures Admission Status Admission Dx 1. Cough and this may be early aspiration pneumonia -patient to be initiated on Zosyn -MAT protocol per RT -patient is now DNR, after emergency room discussion with his son Hoang 2. Dehydration -IV fluid rehydration -We will initiate in the a.m. of August 29his Jevity feedings. 3. Ongoing dysphagia due to complications of cervical neck surgery -Continued waiting for passing swallow study 4. Hypothyroidism -to be maintained on his levothyroxin DVT/VTE Risk/Contraindication: Risk Factor Score Per Nursin RFS Level Per Nursing on Admit: 4+=Very High ISI SENA MD Aug 29, 2017 07:39
[2017-08-29] MEDS: FAMOTIDINE 20 MG (PEPCID) TABLET PEG SCH (08:22)
[2017-08-29] MEDS: DORZOLAMIDE/TIMOLOL (COSOPT) 2-0.68% 10 ML BTL OU SCH ×2 (08:22→20:31)
[2017-08-29] MEDS: LEVOTHYROXINE 88 MCG (LEVOTHORID) TAB PEG SCH (08:22)
[2017-08-29] MEDS: meTOprolol TARTRATE 50 MG (LOPRESSOR) TAB PEG SCH ×2 (08:22→20:30)
[2017-08-29] MEDS: ASPIRIN 81 MG CHEW (CHILDREN'S ASA) PEG SCH (08:22)
[2017-08-29] MEDS ORDERED: VANCOMYCIN 1250 MG/NS 250 ML IVPB IV SCH ×2 (11:00)
[2017-08-29] MEDS: ACETAMINOPHEN 325 MG TABLET PO PRN (13:08)
[2017-08-29] MEDS ORDERED: NON-FORMULARY MEDICATION 1 EA EA (Loteprednol Etabonate (Lotemax) 1 DROP) OD SCH (18:00)
[2017-08-29] MEDS: LORazepam 1 MG (ATIVAN) TAB PEG PRN (20:30)
[2017-08-30] VITALS: BP 122/57
[2017-08-30] MEDS: NS IV 1000 ML 1,000 ML IV SCH ×4 (01:59→21:34)
[2017-08-30] MEDS: RT-ALBUTEROL/IPRATROPIUM 3 ML (DUONEB) VIAL INH SCH ×6 (02:16→22:46)
[2017-08-30] MEDS: PIPERACILLIN/TAZO 3.375 GM/D5W 100 ML IV SCH ×6 (04:04→19:58)
[2017-08-30] MEDS: ZIPRASIDONE 20 MG (GEODON) CAP PEG SCH ×2 (06:08→18:52)
[2017-08-30 06:20] LABS: BASOPHILS % (AUTO) 0 % (0-10); EOSINOPHILS # (AUTO) 0.2 10^3/uL (0.0-0.3); EOSINOPHILS % (AUTO) 3 % (0-10); HEMATOCRIT 27 % (40-54); HEMOGLOBIN 8.8 G/DL (13.3-17.7); LYMPHOCYTES # (AUTO) 0.9 X 10^3 (1.0-4.0); LYMPHOCYTES % (AUTO) 12 % (12-44); MEAN CORPUSCULAR HEMOGLOBIN 30 PG (25-34); MEAN CORPUSCULAR HGB CONC 32 G/DL (32-36); MEAN CORPUSCULAR VOLUME 92 FL (80-99); MEAN PLATELET VOLUME 11.3 FL (7.4-10.4); MONOCYTES # (AUTO) 0.8 X 10^3 (0.0-1.0); MONOCYTES % (AUTO) 11 % (0-12); NEUTROPHILS # (AUTO) 5.8 X 10^3 (1.8-7.8); NEUTROPHILS % (AUTO) 74 % (42-75); PLATELET COUNT 215 10^3/uL (130-400); RED BLOOD COUNT 2.98 10^6/uL (4.35-5.85); RED CELL DISTRIBUTION WIDTH 13.3 % (10.0-14.5); WHITE BLOOD COUNT 7.7 10^3/uL (4.3-11.0)
[2017-08-30 06:49] LABS: BUN/CREATININE RATIO 20; CALCIUM 8.7 MG/DL (8.5-10.1); CARBON DIOXIDE 22 MMOL/L (21-32); CHLORIDE 106 MMOL/L (98-107); CREATININE SERUM 1.07 MG/DL (0.60-1.30); GFR ESTIMATED > 60; GLUCOSE 97 MG/DL (70-105); POTASSIUM 3.9 MMOL/L (3.6-5.0); SODIUM 139 MMOL/L (135-145)
--- NOTE | 2017-08-30 08:16 | Progress Note (SOAP) ---
Subjective Date Seen by Provider: Aug 30, 2017 Time Seen by Provider: 07:30 Subjective/Events-last exam Patient communicating better today. Still unable to clearly speak. Answers yes and no appropriate. Focused Exam Lactate Level 08/28/17 11:00: Lactic Acid Level 1.48 Objective Exam Vital Signs Date Time Temp Pulse Resp B/P (MAP) Pulse Ox O2 Delivery O2 Flow Rate FiO2 08/30/17 06:45 95 Nasal Cannula 3.00 08/30/17 02:18 99 Nasal Cannula 3.00 08/30/17 00:00 97.9 98 22 122/57 (78) 100 Nasal Cannula 35.00 3.00 08/29/17 22:02 99 Nasal Cannula 3.00 08/29/17 21:00 Nasal Cannula 3.00 08/29/17 19:45 99.8 117 20 124/59 (80) 97 Nasal Cannula 3.00 08/29/17 18:38 98 Nasal Cannula 3.00 08/29/17 16:40 98.9 103 20 159/80 (106) 97 Nasal Cannula 3.00 08/29/17 14:00 98 Nasal Cannula 3.00 08/29/17 11:53 98.4 93 16 152/69 (96) 97 NIV Bilevel 08/29/17 11:04 100 Nasal Cannula 3.00 08/29/17 10:43 100 35.00 08/29/17 09:00 100 NIV Bilevel 45.00 08/29/17 08:51 102 45.00 I & O 08/30/17 07:00 Intake Total 880 ml Output Total 3300 ml Balance -2420 ml Capillary Refill : Greater Than 3 Seconds General Appearance: No Apparent Distress Respiratory: Lungs Clear (overall, few rhonchi) Cardiovascular: Regular Rate, Rhythm Gastrointestinal: soft Results Lab Laboratory Tests 08/30/17 05:31: White Blood Count 7.7, Red Blood Count 2.98L, Hemoglobin 8.8L, Hematocrit 27L, Mean Corpuscular Volume 92, Mean Corpuscular Hemoglobin 30, Mean Corpuscular Hemoglobin Concent 32, Red Cell Distribution Width 13.3, Platelet Count 215, Mean Platelet Volume 11.3H, Neutrophils (%) (Auto) 74, Lymphocytes (%) (Auto) 12 , Monocytes (%) (Auto) 11, Eosinophils (%) (Auto) 3, Basophils (%) (Auto) 0, Neutrophils # (Auto) 5.8, Lymphocytes # (Auto) 0.9L, Monocytes # (Auto) 0.8, Eosinophils # (Auto) 0.2, Basophils # (Auto) 0.0, Sodium Level 139, Potassium Level 3.9, Chloride Level 106, Carbon Dioxide Level 22, Anion Gap 11, Blood Urea Nitrogen 21H, Creatinine 1.07, Estimat Glomerular Filtration Rate > 60, BUN /Creatinine Ratio 20, Glucose Level 97, Calcium Level 8.7 Microbiology 08/28/17 Blood Culture - Preliminary, Resulted Enterococcus faecalis 08/28/17 Urine Culture - Preliminary, Resulted Enterococcus faecalis Assessment/Plan Assessment/Plan Assess & Plan/Chief Complaint 1. Cough and this may be early aspiration pneumonia -patient to be initiated on Zosyn -MAT protocol per RT -patient is now DNR, after emergency room discussion with his son Hoang 08/29: Microbiology has informed me that enterococcus species is growing from 2 of the blood cultures from emergency department. 08/30: VRE on enterococcus -check on sensitivities 2. Dehydration -IV fluid rehydration -We will initiate in the a.m. of August 29his Jevity feedings. 08/29: Initiate tube feedings with Jevity 5 times daily for nutrition 3. Ongoing dysphagia due to complications of cervical neck surgery -Continued waiting for passing swallow study 4. Anemia -doubt active bleed and most likely dilutional -check cbc in the am 5. Hypothyroidism -to be maintained on his levothyroxin Clinical Quality Measures Admission Status Admission Dx 1. Cough and this may be early aspiration pneumonia -patient to be initiated on Zosyn -MAT protocol per RT -patient is now DNR, after emergency room discussion with his son Hoang 2. Dehydration -IV fluid rehydration -We will initiate in the a.m. of August 29his Jevity feedings. 3. Ongoing dysphagia due to complications of cervical neck surgery -Continued waiting for passing swallow study 4. Hypothyroidism -to be maintained on his levothyroxin DVT/VTE Risk/Contraindication: Risk Factor Score Per Nursin RFS Level Per Nursing on Admit: 4+=Very High ISI SENA MD Aug 30, 2017 08:16
--- NOTE | 2017-08-30 08:19 | ST Dysphagia Evaluation ---
Speech Evaluation-General Medical Diagnosis Respiratory Distress; Suspected Aspiration Pneumonia Onset Date: Aug 28, 2017 Therapy Diagnosis Therapy Diagnosis: Severe Oropharyngeal Dysphagia Precautions Precautions: Aspiration Precautions/Isolations: Fall Prevention, Standard Precautions Referral Referring Physician: Dr. Bipin Baldwin Reason for Referral: Evaluation/Treatment Bedside Swallowing Evaluation Medical History Pertinent Medical History: Arthritis, CAD, Dementia, HTN, Hypothroidism Current History The patient was recently admitted to [facility] with a diagnosis of respiratory distress. Upon arrival, the patient's SpO2% was at 88% on room air. CXR: 08/28/2017: Persistent linear opacities in right lung base, likely atelectasis or scarring. Mild central vascular congestion. Low lung volumes. Speech PLF/Current-Dysphagia Prior Level of Function The patient receives total nutrition, hydration, and medication via PEG tube since a cervical spine procedure approximately two months prior. The patient's cognition rapidly declined following the procedure. At this time, the patient intermittently, rarely states orientation information. Subjective The patient is laying in bed, moaning loudly upon entrance. The patient rests with his eyes closed, however, briefly opens his eyes at the clinician's verbal greeting. Maximum prompting, including repositioning in bed, is provided by the clinician. The patient is wearing mitts at this time. The patient is coughing and clearing his throat at baseline on hypopharyngeal secretions. The patient is well-known to this clinician from previous hospitalizations. Following a cervical spine procedure, a modified barium swallow was completed. The video displayed gross aspiration of consistencies secondary to pharyngeal edema. The patient's swallowing function prior to the procedure is unknown and not documented. After the procedure, the patient experienced a rapid decline in his cognition. The patient was consistently re-evaluated, however, rarely demonstrated appropriate alertness levels for PO trials. Cognitive Status The patient does not respond to orientation questions provided by the clinician. Oral Motor Skills Ability to Follow Directions: Poor The patient is NPO. Oral Expression Ability: Severe Impairment Observation: Excessive Excretion Hypopharynx Other Contributing Factors: PEG Tube Voice Voice Phonatory-Based Quality: Glottal Wheeler Voice Pitch: Normal Voice Loudness: Normal Face Facial Symmetry: Symmetrical (Grossly symmetrical at rest.) The patient was unable to follow verbal commands for oral motor mechanism. No overt facial droop is noted at rest. The patient is clearing his throat on his secretions at baseline. Oral-Facial Assessment Oral-Facial Dentition: Normal Labial Seal Description: Weak (Bilaterally.) Dysphagia Evaluation Consistencies Presented: Thin Liquid (Oral swab.) The patient did not attempt to orally manipulate the toothette. The patient clenched his lips and refused to open. The patient turned his head away from the clinician. As the patient is not appropriate or alert at this time, the swallow evaluation is terminated. No pharyngeal swallow was elicited. Dietary Recommendations: NPO Liquid Recommendations: NPO Speech pathology to reassess the patient's swallowing function as appropriate. Dysphagia Evaluation Summary Severe oropharyngeal dysphagia. The patient's swallowing evaluation results are directly related to the patient' s inability to complete a swallow evaluation due to cognition. If the patient's cognition improves (and alertness), the patient will be appropriate for continued swallowing evaluation. Barriers to Learning Reduced Cognition, Poor Participation, Agitation. Speech Senior Living Goals Senior Living Goals 1. The patient will participate in a complete bedside swallowing evaluation. Time Frame: Five Days Speech-Plan Treatment Plan Speech Therapy Treatment Plan: Continue Plan of Care Continue speech pathology swallowing assessment as the patient remains appropriate. Treatment Duration: Sep 13, 2017 Frequency: 3 times per week Estimated Hrs Per Day: .25 hour per day Rehab Potential: Poor Safety Risks/Education Teaching Recipient: Patient Teaching Methods: Discussion Response to Teaching: Unable to Comprehend Education Topics Provided: Results, Recommendations, Plan of Care Discharge Recommendations Prison (TCU/NH) Time Speech Therapy Time In: 08:00 Speech Therapy Time Out: 08:12 Total Billed Time: 12 Billed Treatment Time 1PRECIOUS NAPOLEON SIMON Aug 30, 2017 08:19
[2017-08-30] MEDS: DORZOLAMIDE/TIMOLOL (COSOPT) 2-0.68% 10 ML BTL OU SCH ×2 (08:29→19:58)
[2017-08-30] MEDS: LEVOTHYROXINE 88 MCG (LEVOTHORID) TAB PEG SCH (08:30)
[2017-08-30] MEDS: FAMOTIDINE 20 MG (PEPCID) TABLET PEG SCH (08:30)
[2017-08-30] MEDS: ASPIRIN 81 MG CHEW (CHILDREN'S ASA) PEG SCH (08:30)
[2017-08-30] MEDS: meTOprolol TARTRATE 50 MG (LOPRESSOR) TAB PEG SCH ×2 (08:30→19:58)
[2017-08-30] MEDS: LORazepam 1 MG (ATIVAN) TAB PEG PRN ×2 (08:30→19:58)
[2017-08-30] MEDS: ACETAMINOPHEN 325 MG TABLET PO PRN (08:31)
[2017-08-30 09:20] VITALS: BP 152/70
[2017-08-30 12:00] VITALS: BP 146/71
[2017-08-30 16:45] VITALS: BP 122/67
[2017-08-30 19:20] VITALS: BP 132/61
[2017-08-31] VITALS (7 sets, daily range): BP systolic 138–178; BP diastolic 3–91
[2017-08-31] MEDS: RT-ALBUTEROL/IPRATROPIUM 3 ML (DUONEB) VIAL INH SCH ×6 (02:39→22:39)
[2017-08-31] MEDS: PIPERACILLIN/TAZO 3.375 GM/D5W 100 ML IV SCH ×6 (03:47→20:04)
[2017-08-31] MEDS: ZIPRASIDONE 20 MG (GEODON) CAP PEG SCH ×2 (05:53→17:56)
[2017-08-31] MEDS: NS IV 1000 ML 1,000 ML IV SCH ×2 (05:53→18:03)
[2017-08-31] MEDS: LORazepam 1 MG (ATIVAN) TAB PEG PRN ×2 (05:53→20:07)
[2017-08-31 07:08] LABS: BASOPHILS % (AUTO) 0 % (0-10); EOSINOPHILS # (AUTO) 0.4 10^3/uL (0.0-0.3); EOSINOPHILS % (AUTO) 4 % (0-10); HEMATOCRIT 27 % (40-54); HEMOGLOBIN 8.9 G/DL (13.3-17.7); LYMPHOCYTES % (AUTO) 11 % (12-44); MEAN CORPUSCULAR HEMOGLOBIN 31 PG (25-34); MEAN CORPUSCULAR HGB CONC 33 G/DL (32-36); MEAN CORPUSCULAR VOLUME 92 FL (80-99); MONOCYTES # (AUTO) 0.6 X 10^3 (0.0-1.0); MONOCYTES % (AUTO) 7 % (0-12); NEUTROPHILS # (AUTO) 7.1 X 10^3 (1.8-7.8); NEUTROPHILS % (AUTO) 78 % (42-75); PLATELET COUNT 245 10^3/uL (130-400); RED BLOOD COUNT 2.91 10^6/uL (4.35-5.85); RED CELL DISTRIBUTION WIDTH 13.3 % (10.0-14.5); WHITE BLOOD COUNT 9.1 10^3/uL (4.3-11.0)
--- NOTE | 2017-08-31 07:43 | Progress Note (SOAP) ---
Subjective Date Seen by Provider: Aug 31, 2017 Time Seen by Provider: 07:15 Subjective/Events-last exam Suctioning of oropharynx through the night. The fluid suctioned appears to be jevity primarily. He does respond today to his name and answers a few questions with nod of head. Focused Exam Lactate Level 08/28/17 11:00: Lactic Acid Level 1.48 Objective Exam Vital Signs Date Time Temp Pulse Resp B/P (MAP) Pulse Ox O2 Delivery O2 Flow Rate FiO2 08/31/17 07:12 91 Nasal Cannula 2.00 08/31/17 04:15 99.0 79 22 140/84 (102) 97 Nasal Cannula 2.00 08/31/17 03:10 92 Nasal Cannula 2.00 08/31/17 00:35 98.4 70 21 144/70 (94) 99 Nasal Cannula 2.00 08/30/17 22:46 98 Nasal Cannula 2.00 08/30/17 21:00 Nasal Cannula 3.00 08/30/17 19:20 98.9 94 20 132/61 (84) 98 Nasal Cannula 2.00 08/30/17 19:06 96 Nasal Cannula 2.00 08/30/17 16:45 98.7 99 20 122/67 (85) 97 Nasal Cannula 2.00 08/30/17 14:41 99 Nasal Cannula 3.00 08/30/17 12:00 98.9 108 18 146/71 (96) 93 Nasal Cannula 3.00 08/30/17 10:44 97 Nasal Cannula 3.00 08/30/17 09:20 98.6 117 20 152/70 (97) 92 Nasal Cannula 3.00 08/30/17 09:00 Nasal Cannula 3.00 I & O 08/31/17 07:00 Intake Total 250 ml Output Total 2600 ml Balance -2350 ml Capillary Refill : Greater Than 3 Seconds General Appearance: No Apparent Distress HEENT: Other (blister formation on tip of nose, mucous membranes dry) Respiratory: Lungs Clear Cardiovascular: Regular Rate, Rhythm Gastrointestinal: soft (and no obvious distension) Results Lab Laboratory Tests 08/31/17 06:43: White Blood Count 9.1, Red Blood Count 2.91L, Hemoglobin 8.9L, Hematocrit 27L, Mean Corpuscular Volume 92, Mean Corpuscular Hemoglobin 31, Mean Corpuscular Hemoglobin Concent 33, Red Cell Distribution Width 13.3, Platelet Count 245, Mean Platelet Volume 11.0H, Neutrophils (%) (Auto) 78H, Lymphocytes (%) (Auto) 11L, Monocytes (%) (Auto) 7, Eosinophils (%) (Auto) 4, Basophils (%) (Auto) 0, Neutrophils # (Auto) 7.1, Lymphocytes # (Auto) 1.0, Monocytes # (Auto) 0.6, Eosinophils # (Auto) 0.4H, Basophils # (Auto) 0.0 Microbiology 08/28/17 Blood Culture - Preliminary, Resulted Enterococcus faecalis 08/28/17 Urine Culture - Final, Complete Enterococcus faecalis See Comments Assessment/Plan Assessment/Plan Assess & Plan/Chief Complaint 1. Cough and this may be early aspiration pneumonia -patient to be initiated on Zosyn -MAT protocol per RT -patient is now DNR, after emergency room discussion with his son Hoang 08/29: Microbiology has informed me that enterococcus species is growing from 2 of the blood cultures from emergency department. 08/30: VRE on enterococcus -check on sensitivities 08/31: sensitive to amp. keep on zosyn for now 2. Dehydration -IV fluid rehydration -We will initiate in the a.m. of August 29his Jevity feedings. 08/29: Initiate tube feedings with Jevity 5 times daily for nutrition 08/31: Check with dietary on continuous vs bolus feedings. He may need continuous since the bolus is now being suctioned from oropharynx. 3. Ongoing dysphagia due to complications of cervical neck surgery -Continued waiting for passing swallow study 4. Anemia -doubt active bleed and most likely dilutional -check cbc in the am 08/31: Hg stable today. 5. Hypothyroidism -to be maintained on his levothyroxin Clinical Quality Measures Admission Status Admission Dx 1. Cough and this may be early aspiration pneumonia -patient to be initiated on Zosyn -MAT protocol per RT -patient is now DNR, after emergency room discussion with his son Hoang 2. Dehydration -IV fluid rehydration -We will initiate in the a.m. of August 29his Jevity feedings. 3. Ongoing dysphagia due to complications of cervical neck surgery -Continued waiting for passing swallow study 4. Hypothyroidism -to be maintained on his levothyroxin DVT/VTE Risk/Contraindication: Risk Factor Score Per Nursin RFS Level Per Nursing on Admit: 4+=Very High JAIDA,ISI J MD Aug 31, 2017 07:43
--- NOTE | 2017-08-31 08:09 | Diagnostic Imaging Report ---
INDICATION: Respiratory distress. Compared 08/28/2017. FINDINGS: There is air trapping and COPD. Heart size within normal limits. No gross overdistention of vascularity. No focal alveolar consolidation, effusion or pneumothorax. Zones of perihilar atelectasis decreased. IMPRESSION: Decreased atelectatic changes. No adverse development or focal consolidation. Dictated by: Dictated on workstation # [id number]
[2017-08-31] MEDS ORDERED: ACETAMINOPHEN 325 MG TABLET PEG PRN (08:30)
[2017-08-31] MEDS: DORZOLAMIDE/TIMOLOL (COSOPT) 2-0.68% 10 ML BTL OU SCH ×2 (09:05→20:08)
[2017-08-31] MEDS: LEVOTHYROXINE 88 MCG (LEVOTHORID) TAB PEG SCH (09:05)
[2017-08-31] MEDS: FAMOTIDINE 20 MG (PEPCID) TABLET PEG SCH (09:05)
[2017-08-31] MEDS: meTOprolol TARTRATE 50 MG (LOPRESSOR) TAB PEG SCH ×2 (09:05→20:09)
[2017-08-31] MEDS: ASPIRIN 81 MG CHEW (CHILDREN'S ASA) PEG SCH (09:05)
[2017-09-01] MEDS: RT-ALBUTEROL/IPRATROPIUM 3 ML (DUONEB) VIAL INH SCH ×6 (02:36→22:17)
[2017-09-01] MEDS: NS IV 1000 ML 1,000 ML IV SCH ×5 (04:32→23:40)
[2017-09-01] MEDS: PIPERACILLIN/TAZO 3.375 GM/D5W 100 ML IV SCH ×6 (04:33→21:26)
--- NOTE | 2017-09-01 07:45 | Progress Note (SOAP) ---
Subjective Date Seen by Provider: Sep 01, 2017 Time Seen by Provider: 07:15 Subjective/Events-last exam Patient is off bi-pap and is on NC O2. He appears comfortable. Voices no pains. Objective Exam Vital Signs Date Time Temp Pulse Resp B/P (MAP) Pulse Ox O2 Delivery O2 Flow Rate FiO2 09/01/17 06:20 95 Nasal Cannula 2.00 09/01/17 02:36 96 Nasal Cannula 2.00 08/31/17 23:47 98.1 105 20 159/91 (113) 94 Nasal Cannula 2.00 08/31/17 22:39 98 Nasal Cannula 2.00 08/31/17 21:38 Nasal Cannula 3.00 08/31/17 19:02 98 Nasal Cannula 2.00 08/31/17 16:19 99.7 100 20 178/3 (61) 93 Nasal Cannula 2.00 08/31/17 15:09 92 Nasal Cannula 2.00 08/31/17 12:30 99.5 99 24 145/80 (101) 100 Nasal Cannula 2.00 08/31/17 10:40 107 93 28 08/31/17 10:35 93 Nasal Cannula 2.00 08/31/17 09:40 98.6 08/31/17 08:47 98.6 107 22 138/63 (88) 99 Nasal Cannula 2.00 08/31/17 08:00 Nasal Cannula 3.00 I & O 09/01/17 07:00 Intake Total 3400 ml Output Total 1401 ml Balance 1999 ml Capillary Refill : Greater Than 3 Seconds General Appearance: No Apparent Distress HEENT: Other (dry mucous membranes (mouth breathing)) Respiratory: Lungs Clear Cardiovascular: Regular Rate, Rhythm Gastrointestinal: soft Other comments NAME: ROSALBA SMITH [facility] REC#: [id number] PT STATUS: ADM IN : 1935 PHYSICIAN: ISI SENA MD ADMIT DATE: 08/28/17 Signed Date of Exam: 08/31/17 CHEST 1 VIEW, AP/PA ONLY INDICATION: Respiratory distress. Compared 08/28/2017. FINDINGS: There is air trapping and COPD. Heart size within normal limits. No gross overdistention of vascularity. No focal alveolar consolidation, effusion or pneumothorax. Zones of perihilar atelectasis decreased. IMPRESSION: Decreased atelectatic changes. No adverse development or focal consolidation. Dictated by: Dictated on workstation # [id number] Dict: 08/31/17 0757 Trans: 08/31/17 170 Interpreted by: ISABEL WOODWARD Electronically signed by: ISABEL WOODWARD 08/31/17 1707 Results Lab Microbiology 08/28/17 Blood Culture - Preliminary, Resulted Enterococcus faecalis 08/28/17 Urine Culture - Final, Complete Enterococcus faecalis See Comments Assessment/Plan Assessment/Plan Assess & Plan/Chief Complaint 1. Cough and this may be early aspiration pneumonia -patient to be initiated on Zosyn -MAT protocol per RT -patient is now DNR, after emergency room discussion with his son Hoang 08/29: Microbiology has informed me that enterococcus species is growing from 2 of the blood cultures from emergency department. 08/30: VRE on enterococcus -check on sensitivities 08/31: sensitive to amp. keep on zosyn for now 09/01: day 5 zosyn 2. Dehydration -IV fluid rehydration -We will initiate in the a.m. of August 29his Jevity feedings. 08/29: Initiate tube feedings with Jevity 5 times daily for nutrition 08/31: Check with dietary on continuous vs bolus feedings. He may need continuous since the bolus is now being suctioned from oropharynx. 09/01: Patient doing better on 50cc/hr of continuous jevity feedings. 3. Ongoing dysphagia due to complications of cervical neck surgery -Continued waiting for passing swallow study 09/01: Speech therapy noted. 4. Anemia -doubt active bleed and most likely dilutional -check cbc in the am 08/31: Hg stable today. 5. Hypothyroidism -to be maintained on his levothyroxin Clinical Quality Measures Admission Status Admission Dx 1. Cough and this may be early aspiration pneumonia -patient to be initiated on Zosyn -MAT protocol per RT -patient is now DNR, after emergency room discussion with his son Hoang 2. Dehydration -IV fluid rehydration -We will initiate in the a.m. of August 29his Jevity feedings. 3. Ongoing dysphagia due to complications of cervical neck surgery -Continued waiting for passing swallow study 4. Hypothyroidism -to be maintained on his levothyroxin DVT/VTE Risk/Contraindication: Risk Factor Score Per Nursin RFS Level Per Nursing on Admit: 4+=Very High ISI SENA MD Sep 01, 2017 07:45
[2017-09-01 08:00] VITALS: BP 135/75
[2017-09-01 08:30] VITALS: BP 135/75
--- NOTE | 2017-09-01 08:45 | Speech Therapy Daily Note ---
Speech Daily Progress Note Subjective Date Seen by Provider: Sep 01, 2017 Time Seen by Provider: 08:20 The patient was moaning loudly as the clinician entered the fourth floor. The clinician entered the patient's room and he continued moaning and yelling loudly. The clinician was able to calm the patient with conversation. The patient continued to deny pain or discomfort. The clinician offered to sit with the patient until he was feeling more relaxed. The patient did not respond to any orientation questions except his first name. The patient intermittently kept eye contact, however, frequently gazed at the ceiling. Objective PO Trials: The patient's alertness level, discomfort, and poor participation continue to limit his ability to complete oral bolus trials. Oral care was attempted by the clinician, however, the patient continued to clinch his jaw or open and close his mouth repetitively. The clinician was unable to help the patient with oral care and he consistently turned his head away. The patient began coughing on his secretions throughout the session. The patient 's Yankauer was found on the floor so the clinician brought the patient a new one. The patient ceased coughing, however, the clinician attempted to suction the hypopharyngeal region. The patient bit down on the Yankauer, therefore, the clinician was unable to complete this task. The patient's cognition needs to greatly improve prior to appropriateness for PO intake, trials, or completion of a swallow evaluation. Assessment Assessment Current Status: Poor Progress Treatment Plan Continue Plan of Care Speech Skilled Nursing Goals Crossing Guard Goals 1. The patient will participate in a complete bedside swallowing evaluation. NO PROGRESS. Time Frame: Five Days Speech-Plan Treatment Plan Speech Therapy Treatment Plan: Continue Plan of Care Continue skilled speech pathology to target improved swallow safety and appropriateness for PO intake. Treatment Duration: Sep 13, 2017 Frequency: 3 times per week Estimated Hrs Per Day: .25 hour per day Rehab Potential: Poor Safety Risks/Education Teaching Recipient: Patient Teaching Methods: Discussion Response to Teaching: Unable to Comprehend Education Topics Provided: Progression of Care, Results, Recommendations Discharge Recommendations Half-Way (TCU/NH) Time Speech Therapy Time In: 08:20 Speech Therapy Time Out: 08:40 Total Billed Time: 20 Billed Treatment Time HIRAM Garcia ELIZABETH Sep 01, 2017 08:45
[2017-09-01] MEDS: LEVOTHYROXINE 88 MCG (LEVOTHORID) TAB PEG SCH (08:48)
[2017-09-01] MEDS: meTOprolol TARTRATE 50 MG (LOPRESSOR) TAB PEG SCH ×2 (08:48→21:26)
[2017-09-01] MEDS: LORazepam 1 MG (ATIVAN) TAB PEG PRN ×3 (08:48→22:03)
[2017-09-01] MEDS: ZIPRASIDONE 20 MG (GEODON) CAP PEG SCH ×2 (08:48→18:15)
[2017-09-01] MEDS: DORZOLAMIDE/TIMOLOL (COSOPT) 2-0.68% 10 ML BTL OU SCH ×2 (08:49→21:26)
[2017-09-01] MEDS: FAMOTIDINE 20 MG (PEPCID) TABLET PEG SCH (08:49)
[2017-09-01] MEDS: ASPIRIN 81 MG CHEW (CHILDREN'S ASA) PEG SCH (08:49)
[2017-09-01 15:52] VITALS: BP 121/63
[2017-09-02] VITALS: BP 132/63
[2017-09-02] MEDS: RT-ALBUTEROL/IPRATROPIUM 3 ML (DUONEB) VIAL INH SCH ×4 (02:24→19:25)
[2017-09-02] MEDS: LORazepam 1 MG (ATIVAN) TAB PEG PRN ×2 (03:02→15:15)
[2017-09-02] MEDS: PIPERACILLIN/TAZO 3.375 GM/D5W 100 ML IV SCH ×6 (05:07→20:36)
[2017-09-02 06:10] LABS: BASOPHILS % (AUTO) 0 % (0-10); EOSINOPHILS # (AUTO) 0.5 10^3/uL (0.0-0.3); EOSINOPHILS % (AUTO) 6 % (0-10); HEMATOCRIT 27 % (40-54); HEMOGLOBIN 8.9 G/DL (13.3-17.7); LYMPHOCYTES # (AUTO) 1.3 X 10^3 (1.0-4.0); LYMPHOCYTES % (AUTO) 17 % (12-44); MEAN CORPUSCULAR HEMOGLOBIN 30 PG (25-34); MEAN CORPUSCULAR HGB CONC 33 G/DL (32-36); MEAN CORPUSCULAR VOLUME 92 FL (80-99); MONOCYTES # (AUTO) 0.6 X 10^3 (0.0-1.0); MONOCYTES % (AUTO) 8 % (0-12); NEUTROPHILS % (AUTO) 68 % (42-75); PLATELET COUNT 232 10^3/uL (130-400); RED BLOOD COUNT 2.95 10^6/uL (4.35-5.85); WHITE BLOOD COUNT 7.4 10^3/uL (4.3-11.0)
[2017-09-02 06:33] LABS: BUN/CREATININE RATIO 16; CALCIUM 8.7 MG/DL (8.5-10.1); CARBON DIOXIDE 21 MMOL/L (21-32); CHLORIDE 111 MMOL/L (98-107); CREATININE SERUM 0.96 MG/DL (0.60-1.30); GFR ESTIMATED > 60; GLUCOSE 128 MG/DL (70-105); SODIUM 141 MMOL/L (135-145)
[2017-09-02] MEDS: NS IV 1000 ML 1,000 ML IV SCH ×3 (07:38→19:48)
[2017-09-02] MEDS: ZIPRASIDONE 20 MG (GEODON) CAP PEG SCH ×2 (07:38→19:48)
[2017-09-02 08:30] VITALS: BP 153/80
[2017-09-02] MEDS: DORZOLAMIDE/TIMOLOL (COSOPT) 2-0.68% 10 ML BTL OU SCH ×2 (08:54→22:12)
[2017-09-02] MEDS: meTOprolol TARTRATE 50 MG (LOPRESSOR) TAB PEG SCH ×2 (08:54→22:13)
[2017-09-02] MEDS: LEVOTHYROXINE 88 MCG (LEVOTHORID) TAB PEG SCH (08:54)
[2017-09-02] MEDS: FAMOTIDINE 20 MG (PEPCID) TABLET PEG SCH (08:54)
[2017-09-02] MEDS: ASPIRIN 81 MG CHEW (CHILDREN'S ASA) PEG SCH (08:54)
--- NOTE | 2017-09-02 14:34 | Progress Note (SOAP) ---
Subjective Subjective/Events-last exam Afebrile. He is very drowsy this morning and does not answer questions, although he opens his eyes to his name. Review of Systems Date Seen by Provider: Sep 02, 2017 Time Seen by Provider: 10:29 Objective Exam Last Set of Vital Signs Vital Signs Date Time Temp Pulse Resp B/P (MAP) Pulse Ox O2 Delivery O2 Flow Rate FiO2 09/02/17 13:55 74 28 09/02/17 11:20 99 Nasal Cannula 2.00 09/02/17 08:30 99.3 22 153/80 (104) Capillary Refill : Greater Than 3 Seconds I&O Intake and Output 09/02/17 00:00 Intake Total 5800 ml Output Total 2401 ml Balance 3399 ml Intake Oral 0 ml IV Total 3100 ml Tube Feeding 1800 ml Other 900 ml Output Urine Total 2400 ml Stool Total 1 ml # Bowel Movements 3 General: Other (drowsy, arousable but not interactive when aroused) Lungs: Clear to Auscultation Heart: Regular Rate, No Murmurs Abdomen: Normal Bowel Sounds, Soft, Other (binder in place over g tube site) Results/Procedures Lab Laboratory Tests 09/02/17 05:25: White Blood Count 7.4, Red Blood Count 2.95L, Hemoglobin 8.9L, Hematocrit 27L, Mean Corpuscular Volume 92, Mean Corpuscular Hemoglobin 30, Mean Corpuscular Hemoglobin Concent 33, Red Cell Distribution Width 13.0, Platelet Count 232, Mean Platelet Volume 11.0H, Neutrophils (%) (Auto) 68, Lymphocytes (%) (Auto) 17 , Monocytes (%) (Auto) 8, Eosinophils (%) (Auto) 6, Basophils (%) (Auto) 0, Neutrophils # (Auto) 5.0, Lymphocytes # (Auto) 1.3, Monocytes # (Auto) 0.6, Eosinophils # (Auto) 0.5H, Basophils # (Auto) 0.0, Sodium Level 141, Potassium Level 4.0, Chloride Level 111H, Carbon Dioxide Level 21, Anion Gap 9, Blood Urea Nitrogen 15, Creatinine 0.96, Estimat Glomerular Filtration Rate > 60, BUN/ Creatinine Ratio 16, Glucose Level 128H, Calcium Level 8.7 Microbiology 08/28/17 Blood Culture - Preliminary, Resulted Enterococcus faecalis 08/28/17 Urine Culture - Final, Complete Enterococcus faecalis See Comments Assessment/Plan Assessment/Plan Assessment & Plan 1. Possible aspiration pneumonia -initiated on Zosyn at admission -MAT protocol per RT -patient is now DNR, after emergency room discussion with his son Hoang 08/29: Microbiology reported enterococcus species is growing from 2 of the blood cultures from emergency department. 08/31: VRE sensitive to amp. keep on zosyn for now 09/01: day 5 zosyn 09/02: day 6 zosyn, check blood culture, if negative and he remains afebrile and without leukocytosis, consider completing course of 7 days of zosyn. 2. Dehydration with acute renal insufficiency -IV fluid rehydration 08/29: Initiate tube feedings with Jevity 5 times daily for nutrition 08/31: Check with dietary on continuous vs bolus feedings. He may need continuous since the bolus is now being suctioned from oropharynx. 09/01: Patient doing better on 50cc/hr of continuous jevity feedings. 3. Ongoing dysphagia due to complications of cervical neck surgery -Continued waiting for passing swallow study 09/02: Speech therapy in progress, not able to complete testing at this time 4. Anemia -doubt active bleed and most likely dilutional 08/31: Hg stable today. 09/02- review of chart shows anemia over period of a few years, given his comorbidities, defer further work-up to outpatient as hemoglobin is stable at this time 5. Hypothyroidism -to be maintained on his levothyroxine 6. DVT ppx enoxaparin Clinical Quality Measures DVT/VTE Risk/Contraindication: Risk Factor Score Per Nursin RFS Level Per Nursing on Admit: 4+=Very High LIZABETH COLLINS MD Sep 02, 2017 2:34 pm
[2017-09-02 16:25] VITALS: BP 140/76
[2017-09-03 00:08] VITALS: BP 135/77
[2017-09-03] MEDS: RT-ALBUTEROL/IPRATROPIUM 3 ML (DUONEB) VIAL INH SCH ×4 (01:59→20:19)
[2017-09-03] MEDS: PIPERACILLIN/TAZO 3.375 GM/D5W 100 ML IV SCH ×6 (04:52→20:34)
[2017-09-03] MEDS: NS IV 1000 ML 1,000 ML IV SCH ×2 (04:52→08:19)
[2017-09-03 05:19] LABS: HEMOGLOBIN 9.3 G/DL (13.3-17.7); MEAN PLATELET VOLUME 10.9 FL (7.4-10.4); RED BLOOD COUNT 3.13 10^6/uL (4.35-5.85); RED CELL DISTRIBUTION WIDTH 13.3 % (10.0-14.5); WHITE BLOOD COUNT 7.5 10^3/uL (4.3-11.0)
[2017-09-03 05:44] LABS: BUN/CREATININE RATIO 12; CALCIUM 8.6 MG/DL (8.5-10.1); CARBON DIOXIDE 21 MMOL/L (21-32); CHLORIDE 109 MMOL/L (98-107); CREATININE SERUM 0.93 MG/DL (0.60-1.30); GFR ESTIMATED > 60; GLUCOSE 95 MG/DL (70-105); POTASSIUM 3.8 MMOL/L (3.6-5.0); SODIUM 140 MMOL/L (135-145)
[2017-09-03] MEDS: ASPIRIN 81 MG CHEW (CHILDREN'S ASA) PEG SCH (08:05)
[2017-09-03] MEDS: DORZOLAMIDE/TIMOLOL (COSOPT) 2-0.68% 10 ML BTL OU SCH ×2 (08:05→20:34)
[2017-09-03] MEDS: FAMOTIDINE 20 MG (PEPCID) TABLET PEG SCH (08:06)
[2017-09-03] MEDS: LEVOTHYROXINE 88 MCG (LEVOTHORID) TAB PEG SCH (08:06)
[2017-09-03] MEDS: meTOprolol TARTRATE 50 MG (LOPRESSOR) TAB PEG SCH ×2 (08:06→20:34)
[2017-09-03] MEDS: LORazepam 1 MG (ATIVAN) TAB PEG PRN ×2 (08:06→16:36)
[2017-09-03] MEDS: ZIPRASIDONE 20 MG (GEODON) CAP PEG SCH ×2 (08:06→18:04)
[2017-09-03 09:01] VITALS: BP 173/79
--- NOTE | 2017-09-03 11:22 | Progress Note (SOAP) ---
Subjective Subjective/Events-last exam Afebrile, no acute events. Was agitated this morning just before my visit received ativan and is minimally interactive. Review of Systems Date Seen by Provider: Sep 03, 2017 Time Seen by Provider: 10:35 Objective Exam Last Set of Vital Signs Vital Signs Date Time Temp Pulse Resp B/P (MAP) Pulse Ox O2 Delivery O2 Flow Rate FiO2 09/03/17 09:01 97.3 99 24 173/79 (110) 96 Nasal Cannula 2.00 09/02/17 13:55 28 Capillary Refill : Greater Than 3 Seconds I&O Intake and Output 09/03/17 00:00 Intake Total 1800 ml Output Total 1755 ml Balance 45 ml Intake Oral 0 ml Tube Feeding 1500 ml Other 300 ml Output Urine Total 1755 ml # Bowel Movements 3 General: Alert, No Acute Distress Lungs: Other (ronchi throughout) Heart: Regular Rate Psych/Mental Status: Other (drowsy, answers difficult to understand but appropriate) Results/Procedures Lab Laboratory Tests 09/03/17 05:10: White Blood Count 7.5, Red Blood Count 3.13L, Hemoglobin 9.3L, Hematocrit 29L, Mean Corpuscular Volume 92, Mean Corpuscular Hemoglobin 30, Mean Corpuscular Hemoglobin Concent 32, Red Cell Distribution Width 13.3, Platelet Count 254, Mean Platelet Volume 10.9H, Sodium Level 140, Potassium Level 3.8, Chloride Level 109H, Carbon Dioxide Level 21, Anion Gap 10, Blood Urea Nitrogen 11, Creatinine 0.93, Estimat Glomerular Filtration Rate > 60, BUN/Creatinine Ratio 12, Glucose Level 95, Calcium Level 8.6 Microbiology 08/28/17 Blood Culture - Preliminary, Resulted Enterococcus faecalis 08/28/17 Urine Culture - Final, Complete Enterococcus faecalis See Comments Assessment/Plan Assessment/Plan Assessment & Plan 1. Possible aspiration pneumonia -initiated on Zosyn at admission -MAT protocol per RT -patient is now DNR, after emergency room discussion with his son Hoang 08/29: Microbiology reported enterococcus species is growing from 2 of the blood cultures from emergency department. 08/31: VRE sensitive to amp. keep on zosyn for now 09/01: day 5 zosyn 09/02: day 6 zosyn, check blood culture, if negative and he remains afebrile and without leukocytosis, consider completing course of 7 days of zosyn. 09/03: day 7 zosyn, follow up repeat blood cultures. 2. Dehydration with acute renal insufficiency -IV fluid rehydration 08/29: Initiate tube feedings with Jevity 5 times daily for nutrition 08/31: Check with dietary on continuous vs bolus feedings. He may need continuous since the bolus is now being suctioned from oropharynx. 09/01: Patient doing better on 50cc/hr of continuous jevity feedings. 3. Ongoing dysphagia due to complications of cervical neck surgery -Continued waiting for passing swallow study 09/02: Speech therapy in progress, not able to complete testing at this time 4. Anemia -doubt active bleed and most likely dilutional 08/31: Hg stable today. 09/02- review of chart shows anemia over period of a few years, given his comorbidities, defer further work-up to outpatient as hemoglobin is stable at this time 5. Hypothyroidism -to be maintained on his levothyroxine 6. DVT ppx enoxaparin Clinical Quality Measures DVT/VTE Risk/Contraindication: Risk Factor Score Per Nursin RFS Level Per Nursing on Admit: 4+=Very High LIZABETH COLLINS MD Sep 03, 2017 11:21 am
[2017-09-03 16:47] VITALS: BP 169/79
[2017-09-04 00:41] VITALS: BP 164/86
[2017-09-04] MEDS: RT-ALBUTEROL/IPRATROPIUM 3 ML (DUONEB) VIAL INH SCH ×4 (02:25→21:14)
[2017-09-04] MEDS: LORazepam 1 MG (ATIVAN) TAB PEG PRN ×4 (04:30→21:19)
[2017-09-04] MEDS: PIPERACILLIN/TAZO 3.375 GM/D5W 100 ML IV SCH ×2 (05:51)
[2017-09-04] MEDS: ZIPRASIDONE 20 MG (GEODON) CAP PEG SCH ×2 (05:51→17:40)
[2017-09-04 06:06] LABS: HEMOGLOBIN 8.9 G/DL (13.3-17.7); MEAN PLATELET VOLUME 10.6 FL (7.4-10.4); RED BLOOD COUNT 2.99 10^6/uL (4.35-5.85); WHITE BLOOD COUNT 7.1 10^3/uL (4.3-11.0)
[2017-09-04 06:22] LABS: BUN/CREATININE RATIO 12; CALCIUM 8.7 MG/DL (8.5-10.1); CARBON DIOXIDE 21 MMOL/L (21-32); CHLORIDE 110 MMOL/L (98-107); CREATININE SERUM 0.97 MG/DL (0.60-1.30); GFR ESTIMATED > 60; GLUCOSE 104 MG/DL (70-105); SODIUM 139 MMOL/L (135-145)
--- NOTE | 2017-09-04 07:37 | Progress Note (SOAP) ---
Subjective Date Seen by Provider: Sep 04, 2017 Time Seen by Provider: 07:15 Subjective/Events-last exam Arousal with name but no communication this am. No labored breathing. No distress. Objective Exam Vital Signs Date Time Temp Pulse Resp B/P (MAP) Pulse Ox O2 Delivery O2 Flow Rate FiO2 09/04/17 02:26 96 Nasal Cannula 1.00 09/04/17 00:41 98.5 76 20 164/86 (112) 99 Nasal Cannula 2.00 09/03/17 20:19 97 Nasal Cannula 2.00 09/03/17 19:59 Nasal Cannula 2.00 09/03/17 16:47 97.4 79 22 169/79 (109) 93 Nasal Cannula 2.00 09/03/17 15:30 98 Nasal Cannula 2.00 09/03/17 09:01 97.3 99 24 173/79 (110) 96 Nasal Cannula 2.00 09/03/17 09:00 96 Nasal Cannula 2.00 09/03/17 08:09 96 Nasal Cannula 2.00 I & O 09/04/17 07:00 Intake Total 2520 ml Output Total 3100 ml Balance -580 ml Capillary Refill : Greater Than 3 Seconds General Appearance: No Apparent Distress HEENT: Other (membranes minimally moist) Respiratory: Lungs Clear, No Accessory Muscle Use, No Respiratory Distress, Decreased Breath Sounds Cardiovascular: Regular Rate, Rhythm Gastrointestinal: soft Skin: Normal Color Results Lab Laboratory Tests 09/04/17 05:54: White Blood Count 7.1, Red Blood Count 2.99L, Hemoglobin 8.9L, Hematocrit 27L, Mean Corpuscular Volume 91, Mean Corpuscular Hemoglobin 30, Mean Corpuscular Hemoglobin Concent 33, Red Cell Distribution Width 13.0, Platelet Count 276, Mean Platelet Volume 10.6H, Sodium Level 139, Potassium Level 4.0, Chloride Level 110H, Carbon Dioxide Level 21, Anion Gap 8, Blood Urea Nitrogen 12, Creatinine 0.97, Estimat Glomerular Filtration Rate > 60, BUN/Creatinine Ratio 12, Glucose Level 104, Calcium Level 8.7 Microbiology 09/02/17 Blood Culture - Preliminary, Resulted No growth 08/28/17 Urine Culture - Final, Complete Enterococcus faecalis See Comments Assessment/Plan Assessment/Plan Assess & Plan/Chief Complaint 1. Possible aspiration pneumonia -initiated on Zosyn at admission -MAT protocol per RT -patient is now DNR, after emergency room discussion with his son Hoang 08/29: Microbiology reported enterococcus species is growing from 2 of the blood cultures from emergency department. 08/31: VRE sensitive to amp. keep on zosyn for now 09/01: day 5 zosyn 09/02: day 6 zosyn, check blood culture, if negative and he remains afebrile and without leukocytosis, consider completing course of 7 days of zosyn. 09/03: day 7 zosyn, follow up repeat blood cultures. 09/04: DC Zosyn. -blood cultures from 2 sites no growth -plan on dc to [facility] in the am of 09/05. 2. Dehydration with acute renal insufficiency -IV fluid rehydration 08/29: Initiate tube feedings with Jevity 5 times daily for nutrition 08/31: Check with dietary on continuous vs bolus feedings. He may need continuous since the bolus is now being suctioned from oropharynx. 09/01: Patient doing better on 50cc/hr of continuous jevity feedings. 09/04: Monitor urinary output to ensure adequate fluid intake. He may need supplemental fluids to ensure no dehydration -check bmp in the am 3. Ongoing dysphagia due to complications of cervical neck surgery -Continued waiting for passing swallow study 09/02: Speech therapy in progress, not able to complete testing at this time 4. Anemia -doubt active bleed and most likely dilutional 08/31: Hg stable today. 09/02- review of chart shows anemia over period of a few years, given his comorbidities, defer further work-up to outpatient as hemoglobin is stable at this time 5. Hypothyroidism -to be maintained on his levothyroxine 6. DVT ppx enoxaparin Clinical Quality Measures Admission Status Admission Dx 1. Cough and this may be early aspiration pneumonia -patient to be initiated on Zosyn -MAT protocol per RT -patient is now DNR, after emergency room discussion with his son Hoang 2. Dehydration -IV fluid rehydration -We will initiate in the a.m. of August 29his Jevity feedings. 3. Ongoing dysphagia due to complications of cervical neck surgery -Continued waiting for passing swallow study 4. Hypothyroidism -to be maintained on his levothyroxin DVT/VTE Risk/Contraindication: Risk Factor Score Per Nursin RFS Level Per Nursing on Admit: 4+=Very High ISI SENA MD Sep 04, 2017 07:37
[2017-09-04 08:21] VITALS: BP 159/67
--- NOTE | 2017-09-04 08:58 | Speech Therapy Progress Note ---
Therapy Progress Note The clinician attempted swallowing re-evaluation on this date. The patient was laying in bed, eyes open upon entrance. The patient moans when addressed and does not reply to clinician's questions. The clinician attempted to provide oral care, however, the patient refused. The clinician attempted to sit the patient's bed in an upright position, however, the patient moaned loudly until he was reclined. At this time, the patient remains inappropriate for swallowing re-evaluation. Due to multiple attempts with no progression, speech pathology will sign off at this time. Please reconsult speech pathology if the patient's alertness becomes appropriate for continued swallowing evaluation or therapy. Thank you. NAPOLEON SIMON Sep 04, 2017 08:58
[2017-09-04] MEDS: meTOprolol TARTRATE 50 MG (LOPRESSOR) TAB PEG SCH ×2 (09:27→21:19)
[2017-09-04] MEDS: LEVOTHYROXINE 88 MCG (LEVOTHORID) TAB PEG SCH (09:27)
[2017-09-04] MEDS: DORZOLAMIDE/TIMOLOL (COSOPT) 2-0.68% 10 ML BTL OU SCH ×2 (09:27→21:19)
[2017-09-04] MEDS: FAMOTIDINE 20 MG (PEPCID) TABLET PEG SCH (09:27)
[2017-09-04] MEDS: ASPIRIN 81 MG CHEW (CHILDREN'S ASA) PEG SCH (09:27)
[2017-09-04 16:20] VITALS: BP 190/91
[2017-09-04 20:30] VITALS: BP 178/81
[2017-09-05 00:30] VITALS: BP 140/74
[2017-09-05] MEDS: RT-ALBUTEROL/IPRATROPIUM 3 ML (DUONEB) VIAL INH SCH ×2 (02:24→10:23)
[2017-09-05] MEDS: ZIPRASIDONE 20 MG (GEODON) CAP PEG SCH (05:39)
[2017-09-05] MEDS: LORazepam 1 MG (ATIVAN) TAB PEG PRN (05:39)
[2017-09-05 06:56] LABS: BUN/CREATININE RATIO 16; CALCIUM 8.9 MG/DL (8.5-10.1); CARBON DIOXIDE 22 MMOL/L (21-32); CHLORIDE 108 MMOL/L (98-107); CREATININE SERUM 0.96 MG/DL (0.60-1.30); GFR ESTIMATED > 60; GLUCOSE 100 MG/DL (70-105); POTASSIUM 3.9 MMOL/L (3.6-5.0); SODIUM 139 MMOL/L (135-145)
--- NOTE | 2017-09-05 07:23 | Discharge Summary ---
Diagnosis/Chief Complaint Date of Admission Aug 28, 2017 at 12:05 Date of Discharge September 05, 2017 Discharge Date: Sep 05, 2017 Discharge Time: 07:15 Admission Diagnosis Admission Diagnosis 1. Possible aspiration pneumonia 2. Dehydration 3. Ongoing dysphagia due to complications of cervical neck surgery 4. Anemia 5. Hypothyroidism Discharge Diagnosis 1. Urosepsisenterococcus 2. Dehydration 3. Anemiadue to chronic illness 4. Dysphagia following cervical neck surgery Reason Hospital Visit 82-year-old male admitted through the emergency department after apparently having a fever and call from [facility]. Patient has been in poor health recently due to dysphagia that he unfortunately suffered from after cervical neck surgery. Patient is currently being fed by PEG tube. He has been receiving nutrition with Jevity carton 5 times a day followed by 200 cc of water after each Carton He had previously been a full code but it has been noted that the emergency department had conversation with his son and it is apparent that he would like to be a DNR should his breathing or heart fails him. Discharge Summary Hospital Course Hospital Course Patient admitted through [facility] emergency department on August 28, 2017 with low-grade fever as well as poor urinary output. Patient was admitted to [facility] and received intravenous fluids at 125 mL per hour. Patient was also empirically started on Zosyn IV antibiotic due to the suspected bacterial infection from urine or potentially aspiration. Patient has been unable to swallow and it was also noted that during the first day of his hospital stay that when RT suctioned his throat there was a look like the Jevity feedings. Patient had improved with regards to the choking spells during the course of his stay when his feedings were changed from bolus feedings 5 times a day to continuous 50 mL/h feeding. He was also given 300 mL of water 5 times a day to flush PEG tube and to maintain hydration. Patient eventually went off BiPAP and was on nasal cannula oxygen during the course of his hospital stay. 2 days prior to dismissal the nasal cannula oxygen was discontinued and he maintained his oxygen saturations in the mid 90 percentile. His communication efforts during the course of his stay were poor. He appeared to be less agitated during the last 3-4 days of his hospital stay. It was also noted that he had anemia during the course of his stay and this was felt to be due to chronic illness as well as dilutional effect from the IV fluids. Patient will return to [facility] hopefully for improvement of swallowing and ongoing speech therapy. He will have his Manzano catheter discontinued and wear depends. Labs Laboratory Tests 09/03/17 05:10: Red Blood Count 3.13L, Hemoglobin 9.3L, Hematocrit 29L, Mean Platelet Volume 10.9H, Chloride Level 109H 09/04/17 05:54: Red Blood Count 2.99L, Hemoglobin 8.9L, Hematocrit 27L, Mean Platelet Volume 10.6H, Chloride Level 110H 09/05/17 06:28: Chloride Level 108H Procedures None. Discharge Physical Examination Allergies: Coded Allergies: No Known Drug Allergies (Unverified , 10/25/12) Vitals & I&Os Vital Signs Date Time Temp Pulse Resp B/P (MAP) Pulse Ox O2 Delivery O2 Flow Rate FiO2 09/05/17 02:25 96 Room Air 09/05/17 00:30 99.2 80 20 140/74 (96) 2.00 09/02/17 13:55 28 General Appearance: No Acute Distress HEENT: Other (Mucous membranes mildly moist, dry wound on the bridge of nose.) Respiratory: Clear to Auscultation Cardiovascular: Regular Rate (With rate controlled at 80) Abdominal: Soft Skin: No Rashes Discharge Home Medications Reviewed and agree with Discharge Medication list on patient's Discharge Instruction sheet Instructions to Patient/Family Please see electronic discharge instructions given to patient. Clinical Quality Measures DVT/VTE Risk/Contraindication: Risk Factor Score Per Nursin RFS Level Per Nursing on Admit: 4+=Very High ISI SENA MD Sep 05, 2017 07:23
--- NOTE | 2017-09-05 07:35 | Discharge Inst-Skilled Nursing ---
Discharge Inst-[facility] NF Patient Instructions Patient Problems: Patient is unable to swallow due to dysphagia. Speech therapy continues. He will need Jevity continuous PEG tube feedings. Goal: Improvement of his swallow dynamics. Consult/Follow Up/Orders Follow Up Appt.: Follow-up to be performed within the next 2 weeks at via [facility] NF Admit to: Via [facility] Certification (SNF) I certify that SNF services are required to be given on an inpatient basis because of the above named patient's need for shelter care on a continuing basis for the conditions(s) for which he/she was receiving inpatient hospital services prior to his/her transfer to the SNF. Intermediate Facility Order: Nursing Services, [employer] T[employer]-Evaluate & Treat, Physical Therapy-Evaluate & Treat, Speech Language-Evaluate & Treat Discharge Diet: Tube Feeding (PEG tube feedings continuous at 50 mL/h and 300 mL water bolus 5 times daily) Daily Activity as Tolerated: Yes New & Resume Previous Orders Isi Sena Sep 05, 2017 07:33 ISI SENA MD Sep 05, 2017 07:35
[2017-09-05 08:00] VITALS: BP 142/71
[2017-09-05] MEDS: LEVOTHYROXINE 88 MCG (LEVOTHORID) TAB PEG SCH (08:33)
[2017-09-05] MEDS: FAMOTIDINE 20 MG (PEPCID) TABLET PEG SCH (08:33)
[2017-09-05] MEDS: meTOprolol TARTRATE 50 MG (LOPRESSOR) TAB PEG SCH (08:33)
[2017-09-05] MEDS: ASPIRIN 81 MG CHEW (CHILDREN'S ASA) PEG SCH (08:33)
[2017-09-05] MEDS: DORZOLAMIDE/TIMOLOL (COSOPT) 2-0.68% 10 ML BTL OU SCH (08:40)
[2017-09-05 14:00] VITALS: BP 142/71
--- NOTE | 2017-09-08 11:01 | Physician Query Clarification ---
PQ-Intro New Diagnosis Admission/Discharge Admission Date: Aug 28, 2017 at 12:05 Discharge Date: Sep 05, 2017 at 14:00 The medical record reflects the following clinical scenario: History/Risk Factors: Dysphagia Clinical Findings: enterococcus in urine and blood cultures Treatment: IV Zosyn Question: What condition best reflects the above clinical scenario? Please document below. 1. enterococcus sepsis with enterococcus UTI 2. enterococcus UTI only 3. Other, with explanation of the clinical findings. 4. Clinically undetermined, no explanation for the clinical findings. PHYSICIAN RESPONSE What condition reflects above: 1 Explanation of clincal finding Initially only felt to be UTI, however with blood growth of same enterococcus as urine growth. enterococcus sepsis/bacteremia In responding to this query, please exercise your independent professional judgment. The purpose of this communication is to more accurately reflect the complexity of your patients condition. The fact that a question is asked does not imply that any particular answer is desired or expected. Thank you for your timely response to this clarification. Requestors name: Deejay THIS PHYSICIAN QUERY FORM IS A PERMANENT PART OF THE MEDICAL RECORD DEEJAY ROSALES Sep 08, 2017 11:01 ISI SENA MD Sep 22, 2017 08:16
--- NOTE | 2017-09-08 11:09 | Physician Query Clarification ---
PQ-Conflicting Diagnosis Admission/Discharge Admission Date: Aug 28, 2017 at 12:05 Discharge Date: Sep 05, 2017 at 14:00 The medical record reflects the following clinical scenario: History/Risk Factors: Dysphagia Clinical Findings: Persistent linear opacities in right lung base, likely atelectasis or scarring. Mild central vascular congestion. Low lung volumes, cough, O2 sats 88% Treatment: Bipap, IV Zosyn Question: Do you agree with the impression of aspiration pneumonia as documented by you in the Progress notes (not included in DS). Please document a response below. PHYSICIAN RESPONSE Do you agree w/Consulting Dx?: Yes Explanation of clincal finding Patient most likely with his dysphagia is having issues with aspiration. I believe this was present but his primary diagnosis will be the UTI sepsis/ bacteremia In responding to this query, please exercise your independent professional judgment. The purpose of this communication is to more accurately reflect the complexity of your patients condition. The fact that a question is asked does not imply that any particular answer is desired or expected. Thank you for your timely response to this clarification. Requestors name: Deejay THIS PHYSICIAN QUERY FORM IS A PERMANENT PART OF THE MEDICAL RECORD DEEJAY ROSALES Sep 08, 2017 11:09 ISI SENA MD Sep 22, 2017 08:18
== END 2017-09-05 14:00 | DRG 871 ==
LOC: EDUNIT# 10:47 → ER 10:48 → 4TH 12:05
PROVIDERS: ADMIT Family Medicine; ATTEND Family Medicine
DX: A41.81 Sepsis due to Enterococcus (principal); N39.0 Urinary tract infection, site not specified; J69.0 Pneumonitis due to inhalation of food and vomit; R06.03 Acute respiratory distress; E86.0 Dehydration; R64 Cachexia; R13.10 Dysphagia, unspecified; T88.8XXS Other specified complications of surgical and medical care, not elsewhere classified, sequela; Z66 Do not resuscitate; N19 Unspecified kidney failure; E03.9 Hypothyroidism, unspecified; I25.10 Atherosclerotic heart disease of native coronary artery without angina pectoris; I10 Essential (primary) hypertension; E78.00 Pure hypercholesterolemia, unspecified; F03.90 Unspecified dementia, unspecified severity, without behavioral disturbance, psychotic disturbance, mood disturbance, and anxiety; K59.09 Other constipation; M19.91 Primary osteoarthritis, unspecified site; M48.00 Spinal stenosis, site unspecified; H40.9 Unspecified glaucoma; Z93.1 Gastrostomy status; D63.8 Anemia in other chronic diseases classified elsewhere; Z95.5 Presence of coronary angioplasty implant and graft; Z96.652 Presence of left artificial knee joint; Z87.891 Personal history of nicotine dependence; Z94.7 Corneal transplant status
CPT/HCPCS: 36415; 71045; 80048; 80053; 81000; 83605; 85007; 85025; 85027; 85610; 85730; 87040; 87077; 87088; 87186; 93005; 94640; 94660; 94760; 94799; 96360

== ENCOUNTER 2017-09-18 11:42 | Emergency (ER) | payer MEDICARE, OTHER ==
[~2017-09-18] VITALS: Ht 177.8 cm; Wt 79.4 kg
[~2017-09-18 11:42] MED LIST changes: +METO50TA15 PEG
--- NOTE | 2017-09-18 11:49 | ED Cough/URI ---
General Stated Complaint: LABORED BREATHING Source: patient Exam Limitations: no limitations History of Present Illness Date Seen by Provider: Sep 18, 2017 Time Seen by Provider: 11:48 Initial Comments [facility] with reports of cough and gurgling lung sounds about 30 minutes after receiving a PEG tube feeding. He has a history of dysphagia following a cervical spine surgery several months ago. He's been here multiple times for aspiration. Timing/Duration: just prior to arrival Severity/Quality: productive cough Associated Symptoms: cough, shortness of breath, wheezing Allergies and Home Medications Allergies Coded Allergies: No Known Drug Allergies (Unverified , 10/25/12) Home Medications Acetaminophen 325 Mg Tablet, 650 MG PO Q4H PRN for TEMPATURE OR MILD PAIN, ( Reported) Amoxicillin/Potassium Clav 1 Each Tablet, 1 EACH PEG BID Crush and give via PEG tube. Prescribed by: REJI HAGER on 09/18/17 1351 Aspirin 81 Mg Tab.chew, 81 MG PEG DAILY, (Reported) Dorzolamide HCl/Timolol Maleat 10 Ml Drops, 1 DROP OU BID, (Reported) Famotidine 20 Mg Tablet, 20 MG PEG BID, (Reported) Glycerin/Propylene Glycol 30 Ml Drops, 1 DROP OU QID PRN for DRY EYES, (Reported ) Lactose-Reduced Food/Fiber 237 Ml Liquid, 237 ML PEG 5XD, (Reported) Levothyroxine Sodium 88 Mcg Tablet, 88 MCG PEG DAILY, (Reported) Lorazepam 1 Mg Tablet, 1 MG PEG Q4H PRN for AGITATION, (Reported) Loteprednol Etabonate 5 Gm Drops.gel, 1 DROP OD 1800, (Reported) Magnesium Hydroxide 400 Mg/5 Ml Oral.susp, 30 ML PEG DAILY PRN for CONSTIPATION- 7TH LINE, (Reported) Melatonin 3 Mg Tablet, 3 MG PO HS, (Reported) Metoprolol Tartrate 50 Mg Tablet, 50 MG PEG BID, (Reported) Tramadol HCl 50 Mg Tablet, 50 MG PO Q6H PRN for PAIN-MODERATE, (Reported) Ziprasidone HCl 20 Mg Capsule, 20 MG PO Q12H, (Reported) Patient Home Medication List Home Medication List Reviewed: Yes Review of Systems Constitutional: see HPI; No fever EENTM: see HPI Respiratory: see HPI, cough Cardiovascular: no symptoms reported Genitourinary: no symptoms reported Musculoskeletal: no symptoms reported Skin: no symptoms reported Hematologic/Lymphatic: No Symptoms Reported Past Midfsti-Wnefsz-Ljucop Hx Patient Social History Type Used: Cigarettes Former Smoker, Quit: Mar 11, 1989 2nd Hand Smoke Exposure: No Recent Hopitalizations: Yes Immunizations Up To Date Date of Pneumonia Vaccine: Nov 12, 2015 Date of Influenza Vaccine: Dec 06, 2015 Seasonal Allergies Seasonal Allergies: No Past Medical History Surgeries: Yes ([employer], MASTOIDECTOMY, eyelid reduction, L TKR, neck , PEG tube) Gallbladder, Joint Replacement, Orthopedic Respiratory: No Cardiac: Yes (STENTS X2-LAST ONE COUPLE YEARS AGO) Coronary Artery Disease, High Cholesterol, Hypertension Neurological: Yes (dysphagia) Dementia Reproductive Disorders: No Sexually Transmitted Disease: No HIV/AIDS: No Genitourinary: Yes (joe cath since having sx on cervical spin for stenosis) UTI-Chronic Gastrointestinal: Yes (peg tube placement since having sx on cervical spine for stenosis) Chronic Constipation Musculoskeletal: Yes (spinal stenosis, ) Arthritis, Chronic Back Pain Endocrine: No Hypothyroidsim HEENT: Yes Glaucoma Loss of Vision: Bilateral Hearing Impairment: Denies Cancer: No Psychosocial: No Integumentary: No Blood Disorders: No Adverse Reaction/Blood Tranf: No Family Medical History LUNG CANCER G8 BROTHER Myocardial infarction 19 MOTHER Physical Exam Vital Signs - First Documented 09/18/17 11:42 Temp 98.6 Pulse 86 Resp 24 B/P (MAP) 120/69 (86) Pulse Ox 96 O2 Delivery Nasal Cannula O2 Flow Rate 2.00 FiO2 96 Capillary Refill : Height: 6'0.00" Weight: 166lbs. 7.0oz. [id number]; 22.6 BMI Method:Stated General Appearance: WD/WN, no apparent distress, other (frail) Eyes: Bilateral Eye Normal Inspection, Bilateral Eye PERRL, Bilateral Eye EOMI HEENT: PERRL/EOMI, normal ENT inspection Neck: non-tender, full range of motion Respiratory: no respiratory distress, no accessory muscle use, wheezing Cardiovascular: regular rate, rhythm, no murmur Gastrointestinal: normal bowel sounds, non tender Extremities: normal range of motion, non-tender Neurologic/Psychiatric: alert, normal mood/affect, abnormal cerebellar tests Skin: warm/dry Focused Exam Lactate Level 09/18/17 12:30: Lactic Acid Level 1.19 Lactic Acid Level Laboratory Tests Test 09/18/17 12:30 Lactic Acid Level 1.19 MMOL/L (0.50-2.00) Progress/Results/Core Measures Suspected Sepsis SIRS Temperature: Pulse: Respiratory Rate: Laboratory Tests 09/18/17 12:30: White Blood Count 8.4 Blood Pressure / Mean: 09/18/17 12:30: Lactic Acid Level 1.19 Laboratory Tests 09/18/17 12:30: Creatinine 1.09, INR Comment 1.0, Platelet Count 413H, Total Bilirubin 0.5 Results/Orders Lab Results Laboratory Tests Test 09/18/17 12:30 Range/Units White Blood Count 8.4 4.3-11.0 10^3/uL Red Blood Count 3.66 L 4.35-5.85 10^6/uL Hemoglobin 10.9 L 13.3-17.7 G/DL Hematocrit 33 L 40-54 % Mean Corpuscular Volume 89 80-99 FL Mean Corpuscular Hemoglobin 30 25-34 PG Mean Corpuscular Hemoglobin Concent 33 32-36 G/DL Red Cell Distribution Width 13.9 10.0-14.5 % Platelet Count 413 H 130-400 10^3/uL Mean Platelet Volume 11.1 H 7.4-10.4 FL Neutrophils (%) (Auto) 74 42-75 % Lymphocytes (%) (Auto) 13 12-44 % Monocytes (%) (Auto) 9 0-12 % Eosinophils (%) (Auto) 4 0-10 % Basophils (%) (Auto) 0 0-10 % Neutrophils # (Auto) 6.2 1.8-7.8 X 10^3 Lymphocytes # (Auto) 1.1 1.0-4.0 X 10^3 Monocytes # (Auto) 0.7 0.0-1.0 X 10^3 Eosinophils # (Auto) 0.3 0.0-0.3 10^3/uL Basophils # (Auto) 0.0 0.0-0.1 10^3/uL Prothrombin Time 13.7 12.2-14.7 SEC INR Comment 1.0 0.8-1.4 Activated Partial Thromboplast Time 33 24-35 SEC Urine Color YELLOW Urine Clarity VERY CLOUDY H Urine pH 6 5-9 Urine Specific Howes 1.015 L 1.016-1.022 Urine Protein 3+ H NEGATIVE Urine Glucose (UA) NEGATIVE NEGATIVE Urine Ketones NEGATIVE NEGATIVE Urine Nitrite NEGATIVE NEGATIVE Urine Bilirubin NEGATIVE NEGATIVE Urine Urobilinogen 1 NORMAL MG/DL Urine Leukocyte Esterase 3+ H NEGATIVE Urine RBC (Auto) 5+ H NEGATIVE Urine RBC TNTC H /HPF Urine WBC TNTC H /HPF Urine Squamous Epithelial Cells NONE /HPF Urine Crystals NONE /LPF Urine Bacteria LARGE H /HPF Urine Casts NONE /LPF Urine Mucus NEGATIVE /LPF Urine Culture Indicated YES Sodium Level 131 L 135-145 MMOL/L Potassium Level 4.5 3.6-5.0 MMOL/L Chloride Level 97 L 98-107 MMOL/L Carbon Dioxide Level 25 21-32 MMOL/L Anion Gap 9 5-14 MMOL/L Blood Urea Nitrogen 36 H 7-18 MG/DL Creatinine 1.09 0.60-1.30 MG/DL Estimat Glomerular Filtration Rate > 60 BUN/Creatinine Ratio 33 Glucose Level 102 70-105 MG/DL Lactic Acid Level 1.19 0.50-2.00 MMOL/L Calcium Level 9.6 8.5-10.1 MG/DL Total Bilirubin 0.5 0.1-1.0 MG/DL Aspartate Amino Transf (AST/SGOT) 32 5-34 U/L Alanine Aminotransferase (ALT/SGPT) 38 0-55 U/L Alkaline Phosphatase 89 40-136 U/L Total Protein 7.5 6.4-8.2 GM/DL Albumin 3.2 3.2-4.5 GM/DL Micro Results Microbiology 09/18/17 Urine Culture - Preliminary, Resulted Sent To [facility] My Orders Orders - REJI HAGER APRN Cbc With Automated Diff (09/18/17 11:46) Comprehensive Metabolic Panel (09/18/17 11:46) Lactic Acid Analyzer (09/18/17 11:46) Blood Culture (09/18/17 11:46) Sputum Culture (09/18/17 11:46) Ua Culture If Indicated (09/18/17 11:46) Protime With Inr (09/18/17 11:46) Partial Thromboplastin Time (09/18/17 11:46) Chest 1 View, Ap/Pa Only (09/18/17 11:46) O2 (09/18/17 11:46) Saline Lock/Iv-Start (09/18/17 11:46) Saline Lock/Iv-Start (09/18/17 11:46) Vital Signs Adult Sepsis Patie Q15M (09/18/17 11:46) Remove Rings In Anticipation O (09/18/17 11:46) Albuterol/Ipra Inhalation Soln (Duoneb I (09/18/17 12:00) Svn Small Volume Nebulizer (09/18/17 11:50) Urine Culture (09/18/17 12:30) Ceftriaxone Injection (Rocephin Injectio (09/18/17 13:30) Medications Given in ED Current Medications Medications Dose Ordered Sig/Moshe Route Start Time Stop Time Status Last Admin Dose Admin Albuterol/ Ipratropium 3 ml ONCE ONCE INH 09/18/17 12:00 09/18/17 12:01 DC 09/18/17 12:02 3 ML Ceftriaxone Sodium 1000 mg/ Sodium Chloride 50 ml @ 100 mls/hr ONCE ONCE IV 09/18/17 13:30 09/18/17 13:59 DC 09/18/17 13:46 100 MLS/HR Vital Signs/I&O 09/18/17 09/18/17 09/18/17 09/18/17 11:42 11:42 12:03 14:55 Temp 98.6 98.6 Pulse 86 98 Resp 24 14 B/P (MAP) 120/69 (86) 141/68 Pulse Ox 96 96 97 98 O2 Delivery Nasal Cannula Nasal Cannula Nasal Cannula Room Air O2 Flow Rate 2.00 2.00 2.00 FiO2 96 Capillary Refill : Diagnostic Imaging Diagonstic Imaging: Xray Plain Films/CT/US/NM/MRI: chest Comments NAME: ROSALBA SMITH [facility] REC#: [id number] PT STATUS: REG ER : 1935 PHYSICIAN: REJI HAGER APRN ADMIT DATE: 09/18/17/ER Draft Date of Exam:09/18/17 CHEST 1 VIEW, AP/PA ONLY INDICATION: Difficulty breathing. TIME OF EXAM: 12:38 PM Correlation is made with prior study from 08/31/2017. FINDINGS: The heart size is stable. Right hemidiaphragm is chronically elevated. There is some minimal infiltrate or atelectasis in the right base. Otherwise, the lungs are clear. No failure is detected. No effusion or pneumothorax is seen. IMPRESSION: Minimal right basilar atelectasis or infiltrate. Dictated on workstation # [id number] Dict: 09/18/17 1245 Trans: 09/18/17 1251 [facility] [id number] Interpreted by: ROBERT DEMPSEY MD Electronically signed by: Departure Communication (Admissions) 1347-oxygen saturation 94% on room air. Wheezing has improved, cough has reduced in frequency. WIll cover with augmentin abx via peg tube bid. Notified Dr Sena of my plan. this poor gentleman needs hospice though I don't know that family is ready for that Impression Primary Impression: Aspiration into airway Additional Impression: Urinary tract infection Disposition: XFER SNF Condition: Stable Departure-Patient Inst. Decision time for Depature: 13:49 Referrals: ISI SENA MD (PCP/Family) Primary Care Physician Patient Instructions: Urinary Tract Infection, Adult (DC) Add. Discharge Instructions: 1. Return to ER for any concerns 2. Follow-up with his doctor later this week 3. Scripts Amoxicillin/Potassium Clav (Augmentin 875-125 Tablet) 1 Each Tablet 1 EACH PEG BID, #14 TAB Crush and give via PEG tube. Prov: REJI HAGER EMBOSSER OPERATOR 09/18/17 REJI HAGER EMBOSSER OPERATOR Sep 18, 2017 11:49
[2017-09-18] MEDS ORDERED: RT-ALBUTEROL/IPRATROPIUM 3 ML (DUONEB) VIAL INH ONE (12:00)
[2017-09-18 12:45] LABS: BILIRUBIN,URINE NEGATIVE (NEGATIVE); CLARITY,URINE VERY CLOUDY; COLOR,URINE YELLOW; GLUCOSE, URINE (UA) NEGATIVE (NEGATIVE); KETONES,URINE NEGATIVE (NEGATIVE); LEUKOCYTE ESTERASE ,URINE 3+ (NEGATIVE); NITRITE,URINE NEGATIVE (NEGATIVE); PH,URINE 6 (5-9); PROTEIN,URINE 3+ (NEGATIVE); UROBILINOGEN,URINE 1 MG/DL (NORMAL)
--- NOTE | 2017-09-18 12:52 | Diagnostic Imaging Report ---
INDICATION: Difficulty breathing. TIME OF EXAM: 12:38 PM Correlation is made with prior study from 08/31/2017. FINDINGS: The heart size is stable. Right hemidiaphragm is chronically elevated. There is some minimal infiltrate or atelectasis in the right base. Otherwise, the lungs are clear. No failure is detected. No effusion or pneumothorax is seen. IMPRESSION: Minimal right basilar atelectasis or infiltrate. Dictated by: Dictated on workstation # [id number]
[2017-09-18 12:56] LABS: BASOPHILS % (AUTO) 0 % (0-10); EOSINOPHILS # (AUTO) 0.3 10^3/uL (0.0-0.3); EOSINOPHILS % (AUTO) 4 % (0-10); HEMATOCRIT 33 % (40-54); HEMOGLOBIN 10.9 G/DL (13.3-17.7); LYMPHOCYTES # (AUTO) 1.1 X 10^3 (1.0-4.0); LYMPHOCYTES % (AUTO) 13 % (12-44); MEAN CORPUSCULAR HEMOGLOBIN 30 PG (25-34); MEAN CORPUSCULAR HGB CONC 33 G/DL (32-36); MEAN CORPUSCULAR VOLUME 89 FL (80-99); MEAN PLATELET VOLUME 11.1 FL (7.4-10.4); MONOCYTES # (AUTO) 0.7 X 10^3 (0.0-1.0); MONOCYTES % (AUTO) 9 % (0-12); NEUTROPHILS # (AUTO) 6.2 X 10^3 (1.8-7.8); NEUTROPHILS % (AUTO) 74 % (42-75); PLATELET COUNT 413 10^3/uL (130-400); RED BLOOD COUNT 3.66 10^6/uL (4.35-5.85); RED CELL DISTRIBUTION WIDTH 13.9 % (10.0-14.5); WHITE BLOOD COUNT 8.4 10^3/uL (4.3-11.0)
[2017-09-18 12:57] LABS: RBC,URINE TNTC /HPF
[2017-09-18 12:58] LABS: BACTERIA,URINE LARGE /HPF; WBC,URINE TNTC /HPF
[2017-09-18 13:08] LABS: PROTHROMBIN TIME PATIENT 13.7 SEC (12.2-14.7)
[2017-09-18 13:15] LABS: ALANINE AMINOTRANSFERASE 38 U/L (0-55); ALBUMIN 3.2 GM/DL (3.2-4.5); ALKALINE PHOSPHATASE 89 U/L (40-136); BILIRUBIN,TOTAL 0.5 MG/DL (0.1-1.0); BUN/CREATININE RATIO 33; CALCIUM 9.6 MG/DL (8.5-10.1); CARBON DIOXIDE 25 MMOL/L (21-32); CHLORIDE 97 MMOL/L (98-107); CREATININE SERUM 1.09 MG/DL (0.60-1.30); GFR ESTIMATED > 60; GLUCOSE 102 MG/DL (70-105); POTASSIUM 4.5 MMOL/L (3.6-5.0); SODIUM 131 MMOL/L (135-145); TOTAL PROTEIN 7.5 GM/DL (6.4-8.2)
[2017-09-18] MEDS ORDERED: cefTRIAXone INJECTION 1,000 MG in NS (IVPB) 50 ML IV ONE (13:30)
[2017-09-18] MEDS ORDERED: AMOX-358 PEG (13:51)
--- OUTSIDE RECORDS SUMMARY | 2017-09-18 14:14 | XMS REPORT | Continuity of Care Document ---
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 06/19/2013 ANDREW FERREIRA, KEZIA FERREIRAP CCDS Ot 426.4 RT BUNDLE BRANCH BLOCK 06/19/2013 ANDREW ASTORGA FACC, KEZIA FACP CCDS Ot 585.3 CHRONIC KIDNEY DISEASE, STAGE III (MODER 06/19/2013 ANDREW ASTORGA FACC, KEZIA FACP CCDS Ot 786.59 CHEST PAIN NEC 06/19/2013 ANDREW ASTORGA FACC, KEZIA [facility] CCD[facility] Ot V15.82 HISTORY OF TOBACCO USE 06/19/2013 ANDREW ASTORGA FACC, KEZIA FACP CCDS Ot V45.82 PERCUTANEOUS TRANSLUM CORON ANGIOPLASTY 06/19/2013 ANDREW ASTORGA FACC, KEZIA FACP CCDS Ot V58.63 LONG-TERM(CURRENT)USE OF ANTIPLATELET/AN 06/19/2013 ANDREW ASTORGA FACC, KEZIA [facility] CCDS Ot V58.69 OTH MED,LT,CURRENT USE [...] OTHER SPECIFIED SURGICAL A 10/19/2015 CHANCE CARRENO CLOUD AUTOMATION TESTER Ot E78.4 OTHER HYPERLIPIDEMIA 10/19/2015 CHANCE CARRENO CLOUD AUTOMATION TESTER Ot I10 ESSENTIAL (PRIMARY) HYPERTENSION 10/19/2015 CHANCE CARRENO CLOUD AUTOMATION TESTER Ot I25.10 ATHSCL HEART DISEASE OF [place] CORONARY 10/19/2015 CHANCE CARRENO CLOUD AUTOMATION TESTER Ot 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 10/19/2015 ANDREW ASTORGA FACC, ALI FACP CCDS Ot 785.2 CARDIAC MURMURS NEC 10/19/2015 ANDREW ASTORGA FACC, ALI FACP CCDS Ot 786.59 CHEST PAIN NEC 10/19/2015 ANDREW ASTORGA FACMrecedes, ALI FACP CCDS Ot 785.2 CARDIAC MURMURS [...] SPECIFIED SURGICAL A 10/19/2015 BAIMA, CHANCE L CLOUD AUTOMATION TESTER Ot E78.4 OTHER HYPERLIPIDEMIA 10/19/2015 BAIMA, CHANCE L CLOUD AUTOMATION TESTER Ot I10 ESSENTIAL (PRIMARY) HYPERTENSION 10/19/2015 FLAKOMA, CHANCE L CLOUD AUTOMATION TESTER Ot I25.10 ATHSCL HEART DISEASE OF [place] CORONARY 10/19/2015 BAIMA, CHANCE L CLOUD AUTOMATION TESTER Ot 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 10/19/2015 BAIMA, CHANCE L CLOUD AUTOMATION TESTER Ot I25.10 ATHSCL HEART DISEASE OF [place] CORONARY 10/19/2015 BAIMA, CHANCE L CLOUD AUTOMATION TESTER Ot E78.4 OTHER HYPERLIPIDEMIA 10/19/2015 BAIMA, CHANCE L CLOUD AUTOMATION TESTER Ot I10 ESSENTIAL (PRIMARY) HYPERTENSION 10/19/2015 BAIMA, CHANCE L CLOUD AUTOMATION TESTER Ot I25.10 ATHSCL HEART DISEASE OF [place] CORONARY 10/19/2015 BAIMA, CHANCE L CLOUD AUTOMATION TESTER Ot 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 10/20/2015 BAIMA, CHANCE L CLOUD AUTOMATION TESTER Ot I25.10 ATHSCL HEART DISEASE OF [place] CORONARY 10/21/2015 BAIMA, CHANCE L CLOUD AUTOMATION TESTER Ot E78.4 OTHER HYPERLIPIDEMIA 10/21/2015 BAIMA, CHANCE L CLOUD AUTOMATION TESTER Ot I10 ESSENTIAL (PRIMARY) HYPERTENSION 10/21/2015 BAIMA, CHANCE L CLOUD AUTOMATION TESTER Ot I25.10 ATHSCL HEART DISEASE OF [place] CORONARY 10/21/2015 BAIMA, CHANCE L CLOUD AUTOMATION TESTER Ot 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 10/23/2015 WAICHANCE Mary CLOUD AUTOMATION TESTER Ot E78.4 OTHER HYPERLIPIDEMIA 10/23/2015 FLAKOMA CHANCE L CLOUD AUTOMATION TESTER Ot I10 ESSENTIAL (PRIMARY) HYPERTENSION 10/23/2015 WAI CHANCE L CLOUD AUTOMATION TESTER Ot I25.10 ATHSCL HEART DISEASE OF [place] CORONARY 10/23/2015 CHANCE CARRENO CLOUD AUTOMATION TESTER Ot I65.23 OCCLUSION AND STENOSIS OF BILATERAL [...] OTHER SPECIFIED SURGICAL A 10/27/2015 CHANCE CARRENO CLOUD AUTOMATION TESTER Ot E78.4 OTHER HYPERLIPIDEMIA 10/27/2015 WAICHANCE Mary CLOUD AUTOMATION TESTER Ot I10 ESSENTIAL (PRIMARY) HYPERTENSION 10/27/2015 CHANCE CARRENO CLOUD AUTOMATION TESTER Ot I25.10 ATHSCL HEART DISEASE OF [place] CORONARY 10/27/2015 CHANCE CARRENO CLOUD AUTOMATION TESTER Ot 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 10/27/2015 FLAKOCHANCE FUNG CLOUD AUTOMATION TESTER Ot E78.4 OTHER HYPERLIPIDEMIA 10/27/2015 BAIMACHANCE L CLOUD AUTOMATION TESTER Ot I10 ESSENTIAL (PRIMARY) HYPERTENSION 10/27/2015 CHANCE CARRENO L CLOUD AUTOMATION TESTER Ot I25.10 ATHSCL HEART DISEASE OF [place] CORONARY 10/27/2015 CHANCE CARRENO CLOUD AUTOMATION TESTER Ot I65.23 OCCLUSION AND STENOSIS OF BILATERAL [...] SPECIFIED SURGICAL A 10/27/2015 WAI CHANCE Mary CLOUD AUTOMATION TESTER Ot E78.4 OTHER HYPERLIPIDEMIA 10/27/2015 WAICHANCE L CLOUD AUTOMATION TESTER Ot I10 ESSENTIAL (PRIMARY) HYPERTENSION 10/27/2015 WAI CHANCE L CLOUD AUTOMATION TESTER Ot I25.10 ATHSCL HEART DISEASE OF [place] CORONARY 10/27/2015 BAIMACHANCE L CLOUD AUTOMATION TESTER Ot 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 10/27/2015 BAIMA, CHANCE L CLOUD AUTOMATION TESTER Ot E78.4 OTHER HYPERLIPIDEMIA 10/27/2015 BAIMA, CHANCE L CLOUD AUTOMATION TESTER Ot I10 ESSENTIAL (PRIMARY) HYPERTENSION 10/27/2015 BAIMA, CHANCE L CLOUD AUTOMATION TESTER Ot I25.10 ATHSCL HEART DISEASE OF [place] CORONARY 10/27/2015 BAIMA CHANCE L CLOUD AUTOMATION TESTER Ot 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 11/06/2015 BAIMACHANCE L CLOUD AUTOMATION TESTER Ot E78.4 OTHER HYPERLIPIDEMIA 11/06/2015 BAIMA, CHANCE L CLOUD AUTOMATION TESTER Ot I10 ESSENTIAL (PRIMARY) HYPERTENSION 11/06/2015 BAIMA, CHANCE L CLOUD AUTOMATION TESTER Ot I25.10 ATHSCL HEART DISEASE OF [place] CORONARY 11/06/2015 BAIMA CHANCE L CLOUD AUTOMATION TESTER Ot 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 11/13/2015 BAIMA CHANCE L CLOUD AUTOMATION TESTER Ot E78.4 OTHER HYPERLIPIDEMIA 11/13/2015 BAIMA, CHANCE L CLOUD AUTOMATION TESTER Ot I10 ESSENTIAL (PRIMARY) HYPERTENSION 11/13/2015 BAIMA, CHANCE L CLOUD AUTOMATION TESTER Ot I25.10 ATHSCL HEART DISEASE OF [place] CORONARY 11/13/2015 BAIMAYARIELCHANCE L CLOUD AUTOMATION TESTER Ot I65.23 OCCLUSION AND STENOSIS OF BILATERAL [...] SPECIFIED SURGICAL A 11/19/2015 BAIMA, CHANCE L CLOUD AUTOMATION TESTER Ot E78.4 OTHER HYPERLIPIDEMIA 11/19/2015 BAIMA, CHANCE L CLOUD AUTOMATION TESTER Ot I10 ESSENTIAL (PRIMARY) HYPERTENSION 11/19/2015 BAIMA, CHANCE L CLOUD AUTOMATION TESTER Ot I25.10 ATHSCL HEART DISEASE OF [place] CORONARY 11/19/2015 BAIMA, CHANCE L CLOUD AUTOMATION TESTER Ot 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 11/19/2015 BAIMA, CHANCE L CLOUD AUTOMATION TESTER Ot E78.4 OTHER HYPERLIPIDEMIA 11/19/2015 BAIMA, CHANCE L CLOUD AUTOMATION TESTER Ot I10 ESSENTIAL (PRIMARY) HYPERTENSION 11/19/2015 BAIMA, CHANCE L CLOUD AUTOMATION TESTER Ot I25.10 ATHSCL HEART DISEASE OF [place] CORONARY 11/19/2015 BAIMA, CHANCE L CLOUD AUTOMATION TESTER Ot 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 11/20/2015 BAIMA, CHANCE L CLOUD AUTOMATION TESTER Ot E78.4 OTHER HYPERLIPIDEMIA 11/20/2015 BAIMA, CHANCE L CLOUD AUTOMATION TESTER Ot I10 ESSENTIAL (PRIMARY) HYPERTENSION 11/20/2015 BAIMA, CHANCE L CLOUD AUTOMATION TESTER Ot I25.10 ATHSCL HEART DISEASE OF [place] CORONARY 11/20/2015 BAIMA, CHANCE L CLOUD AUTOMATION TESTER Ot 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 11/23/2015 BAIMA, CHANCE L CLOUD AUTOMATION TESTER Ot E78.4 OTHER HYPERLIPIDEMIA 11/23/2015 BAIMA, CHANCE L CLOUD AUTOMATION TESTER Ot I10 ESSENTIAL (PRIMARY) HYPERTENSION 11/23/2015 BAIMA, CHANCE L CLOUD AUTOMATION TESTER Ot I25.10 ATHSCL HEART DISEASE OF [place] CORONARY 11/23/2015 BAIMA, CHANCE L CLOUD AUTOMATION TESTER Ot 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 12/11/2015 FLAKOCHANCE FUNG CLOUD AUTOMATION TESTER Ot E78.4 OTHER HYPERLIPIDEMIA 12/11/2015 CHANCE CARRENO CLOUD AUTOMATION TESTER Ot I10 ESSENTIAL (PRIMARY) HYPERTENSION 12/11/2015 CHANCE CARRENO CLOUD AUTOMATION TESTER Ot I25.10 ATHSCL HEART DISEASE OF [place] CORONARY 12/11/2015 CHANCE CARRENO CLOUD AUTOMATION TESTER Ot 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 03/11/2016 MICHELLE ASTORGA, MAGDIEL Berger Ot K92.1 MELENA 03/11/2016 MAGDIEL MARTINEZ MD Ot Z01.818 ENCOUNTER FOR OTHER PREPROCEDURAL EXAMIN 03/15/2016 ANDREW ASTORGA FACC, ALI FACP CCDS Ot 785.2 CARDIAC MURMURS NEC 03/15/2016 ANDREW SATORGA FACC, ALI FACP CCDS Ot 786.59 CHEST [...] OTHER SPECIFIED SURGICAL A 03/15/2016 CHANCE CARRENO CLOUD AUTOMATION TESTER Ot E78.4 OTHER HYPERLIPIDEMIA 03/15/2016 BAIMA, CHANCE L CLOUD AUTOMATION TESTER Ot I10 ESSENTIAL (PRIMARY) HYPERTENSION 03/15/2016 BAIMA, CHANCE L CLOUD AUTOMATION TESTER Ot I25.10 ATHSCL HEART DISEASE OF [place] CORONARY 03/15/2016 BAIMA, CHANCE L CLOUD AUTOMATION TESTER Ot 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 03/15/2016 BAIMA, CHANCE L CLOUD AUTOMATION TESTER Ot E78.4 OTHER HYPERLIPIDEMIA 03/15/2016 BAIMA, CHANCE L CLOUD AUTOMATION TESTER Ot I10 ESSENTIAL (PRIMARY) HYPERTENSION 03/15/2016 BAIMA, CHANCE L CLOUD AUTOMATION TESTER Ot I25.10 ATHSCL HEART DISEASE OF [place] CORONARY 03/15/2016 BAIMA, CHANCE L CLOUD AUTOMATION TESTER Ot 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 03/15/2016 BAIMA, CHANCE L CLOUD AUTOMATION TESTER Ot E78.4 OTHER HYPERLIPIDEMIA 03/15/2016 BAIMA, CHANCE L CLOUD AUTOMATION TESTER Ot I10 ESSENTIAL (PRIMARY) HYPERTENSION 03/15/2016 BAIMA, CHANCE L CLOUD AUTOMATION TESTER Ot I25.10 ATHSCL HEART DISEASE OF [place] CORONARY 03/15/2016 BAIMA, CHANCE L CLOUD AUTOMATION TESTER Ot 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 03/15/2016 MAGDIEL MARTINEZ MD Ot K44.9 DIAPHRAGMATIC HERNIA WITHOUT OBSTRUCTION 03/15/2016 MICHELLE ASTORGA, MAGDIEL Berger Ot K92.1 MELENA 03/15/2016 MAGDIEL MARTINEZ MD Ot Z79.02 TECHNICAL SUPPORT REPRESENTATIVE (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 03/15/2016 MAGDIEL MARTINEZ MD Ot Z79.82 INTERMEDIATE (CURRENT) USE OF ASPIRIN 03/17/2016 MAGDIEL MARTINEZ MD Ot K44.9 DIAPHRAGMATIC HERNIA WITHOUT OBSTRUCTION 03/17/2016 MAGDIEL MARTINEZ MD Ot K92.1 MELENA 03/17/2016 MAGDIEL MARTINEZ MD Ot Z79.02 TECHNICAL SUPPORT REPRESENTATIVE (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 03/17/2016 MAGDIEL MARTINEZ MD Ot Z79.82 INTERMEDIATE (CURRENT) USE OF ASPIRIN 08/02/2016 ANDREW ASTORGA [...] SPECIFIED SURGICAL A 08/02/2016 BAIMA, CHANCE L CLOUD AUTOMATION TESTER Ot E78.4 OTHER HYPERLIPIDEMIA 08/02/2016 BAIMA, CHANCE L CLOUD AUTOMATION TESTER Ot I10 ESSENTIAL (PRIMARY) HYPERTENSION 08/02/2016 BAIMA, CHANCE L CLOUD AUTOMATION TESTER Ot I25.10 ATHSCL HEART DISEASE OF [place] CORONARY 08/02/2016 BAIMA, CHANCE L CLOUD AUTOMATION TESTER Ot 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 08/02/2016 BAIMA, CHANCE L CLOUD AUTOMATION TESTER Ot E78.4 OTHER HYPERLIPIDEMIA 08/02/2016 BAIMA, CHANCE L CLOUD AUTOMATION TESTER Ot I10 ESSENTIAL (PRIMARY) HYPERTENSION 08/02/2016 BAIMA, CHANCE L CLOUD AUTOMATION TESTER Ot I25.10 ATHSCL HEART DISEASE OF [place] CORONARY 08/02/2016 BAIMA, CHANCE L CLOUD AUTOMATION TESTER Ot 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 08/02/2016 BAIMA, CHANCE L CLOUD AUTOMATION TESTER Ot E78.4 OTHER HYPERLIPIDEMIA 08/02/2016 BAIMA, CHANCE L CLOUD AUTOMATION TESTER Ot I10 ESSENTIAL (PRIMARY) HYPERTENSION 08/02/2016 BAIMA, CHANCE L CLOUD AUTOMATION TESTER Ot I25.10 ATHSCL HEART DISEASE OF [place] CORONARY 08/02/2016 WAI CHANCE L CLOUD AUTOMATION TESTER Ot I65.23 OCCLUSION AND STENOSIS OF BILATERAL [...] CCDS Ot I25.10 ATHSCL HEART DISEASE OF [place] CORONARY 12/14/2016 ANDREW ASTORGA FACC, KEZIA FACP CCDS Ot E78.4 OTHER HYPERLIPIDEMIA 12/14/2016 ANDREW ASTORGA FACC, ALI FACP CCDS Ot I12.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 12/14/2016 ANDREW ASTORGA FACC, ALI FACP CCDS Ot I25.10 ATHSCL HEART DISEASE OF [place] CORONARY 12/14/2016 ANDREW ASTORGA FACC, KEZIA FACP [...] CCDS Ot I25.10 ATHSCL HEART DISEASE OF [place] CORONARY 01/03/2017 ANDREW ASTORGA FACC, ALI FACP [...] CCDS Ot I25.10 ATHSCL HEART DISEASE OF [place] CORONARY 01/10/2017 ANDREW ASTORGA FACC, ALI FACP [...] CCDS Ot I25.10 ATHSCL HEART DISEASE OF [place] CORONARY 06/21/2017 ANDREW ASTORGA FACC, ALI FACP [...] CCDS Ot I25.10 ATHSCL HEART DISEASE OF [place] CORONARY 07/04/2017 ANDREW ASTORGA FACC, ALI FACP [...] CCDS Ot I25.10 ATHSCL HEART DISEASE OF [place] CORONARY 07/10/2017 ANDREW ASTORGA FACC, ALI FACP [...] MD Ot I25.10 ATHSCL HEART DISEASE OF [place] CORONARY 07/14/2017 AMA MOON MD Ot M19.91 [...] MD Ot I25.10 ATHSCL HEART DISEASE OF [place] CORONARY 07/17/2017 AMA MOON MD Ot M19.91 PRIMARY OSTEOARTHRITIS, UNSPECIFIED SITE 07/17/2017 AAM MOON MD Ot M47.12 OTHER SPONDYLOSIS WITH [...] MD Ot I25.10 ATHSCL HEART DISEASE OF [place] CORONARY 07/17/2017 AMA MOON MD Ot M19.91 [...] MD, Ot I25.10 ATHSCL HEART DISEASE OF [place] CORONARY 07/17/2017 AMA MOON MD Ot M19.91 [...] MD Ot I25.10 ATHSCL HEART DISEASE OF [place] CORONARY 07/18/2017 AMA MOON MD Ot M19.91 [...] MD Ot I25.10 ATHSCL HEART DISEASE OF [place] CORONARY 07/18/2017 AMA MOON MD Ot J39.2 [...] SPECIFIED SURGICAL A 07/19/2017 BAIMA, CHANCE L CLOUD AUTOMATION TESTER Ot E78.4 OTHER HYPERLIPIDEMIA 07/19/2017 BAIMA, CHANCE L CLOUD AUTOMATION TESTER Ot I10 ESSENTIAL (PRIMARY) HYPERTENSION 07/19/2017 BAIMA, CHANCE L CLOUD AUTOMATION TESTER Ot I25.10 ATHSCL HEART DISEASE OF [place] CORONARY 07/19/2017 BAIMA, CHANCE L CLOUD AUTOMATION TESTER Ot 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 07/19/2017 BAIMA, CHANCE L CLOUD AUTOMATION TESTER Ot E78.4 OTHER HYPERLIPIDEMIA 07/19/2017 BAIMA, CHANCE L CLOUD AUTOMATION TESTER Ot I10 ESSENTIAL (PRIMARY) HYPERTENSION 07/19/2017 BAIMA, CHANCE L CLOUD AUTOMATION TESTER Ot I25.10 ATHSCL HEART DISEASE OF [place] CORONARY 07/19/2017 BAIMA, CHANCE L CLOUD AUTOMATION TESTER Ot 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 07/19/2017 BAIMA, CHANCE L CLOUD AUTOMATION TESTER Ot E78.4 OTHER HYPERLIPIDEMIA 07/19/2017 BAIMA, CHANCE L CLOUD AUTOMATION TESTER Ot I10 ESSENTIAL (PRIMARY) HYPERTENSION 07/19/2017 BAIMA, CHANCE L CLOUD AUTOMATION TESTER Ot I25.10 ATHSCL HEART DISEASE OF [place] CORONARY 07/19/2017 BAIMA, CHANCE L CLOUD AUTOMATION TESTER Ot I65.23 OCCLUSION AND STENOSIS OF BILATERAL [...] CCDS Ot I25.10 ATHSCL HEART DISEASE OF [place] CORONARY 07/19/2017 ANDREW ASTORGA FACC, ALI FACP CCDS Ot 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 07/19/2017 ANDREW ASTORGA FACC, ALI FACP CCDS Ot N18.3 CHRONIC KIDNEY DISEASE, STAGE 3 (MODERAT 07/19/2017 REJI HAGRE APRN Ot E03.9 HYPOTHYROIDISM, UNSPECIFIED 07/19/2017 REJI HAGER APRN Ot I10 ESSENTIAL (PRIMARY) HYPERTENSION 07/19/2017 REJI HAGER APRN Ot 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 07/19/2017 REJI HAGER APRN Ot Z79.82 INTERMEDIATE (CURRENT) USE OF ASPIRIN 07/19/2017 REJI HAGER [...] MALFUNCTION 07/24/2017 REJI HAGER APRN Ot Z79.82 INTERMEDIATE (CURRENT) USE OF ASPIRIN 07/24/2017 REJI HAGER [...] MD, Ot I25.10 ATHSCL HEART DISEASE OF [place] CORONARY 08/04/2017 ISI SENA MD Ot M19.91 [...] MD, Ot I25.10 ATHSCL HEART DISEASE OF [place] CORONARY 08/08/2017 ISI SENA MD, Ot M19.91 [...] MD, Ot I25.10 ATHSCL HEART DISEASE OF [place] CORONARY 08/09/2017 ISI SENA MD, Ot M19.91 [...] MD, Ot 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 08/09/2017 SII SENA MD, Ot Z95.5 PRESENCE OF CORONARY [...] MD, Ot I25.10 ATHSCL HEART DISEASE OF [place] CORONARY 08/09/2017 ISI SENA MD, Ot M19.91 [...] MD, Ot I25.10 ATHSCL HEART DISEASE OF [place] CORONARY 08/09/2017 ISI SENA MD, Ot M19.91 [...] MD, Ot I25.10 ATHSCL HEART DISEASE OF [place] CORONARY 08/10/2017 ISI SENA MD, Ot M19.91 [...] MD, Ot I25.10 ATHSCL HEART DISEASE OF [place] CORONARY 08/10/2017 ISI SENA MD, Ot M19.91 [...] OF CORONARY ANGIOPLASTY IMPLANT 08/10/2017 ISI SENA MD Ot Z96.652 PRESENCE OF LEFT ARTIFICIAL KNEE JOINT 08/12/2017 REJI HAGER APRN Ot E03.9 HYPOTHYROIDISM, UNSPECIFIED 08/12/2017 REJI HAGER APRN Ot E78.00 PURE HYPERCHOLESTEROLEMIA, UNSPECIFIED 08/12/2017 REJI HAGER APRN Ot I10 ESSENTIAL (PRIMARY) HYPERTENSION 08/12/2017 REJI HAGER APRN Ot I25.10 ATHSCL HEART DISEASE OF [place] CORONARY 08/12/2017 REJI HAGER APRN Ot M48.02 SPINAL STENOSIS, CERVICAL REGION 08/12/2017 REJI HAGER APRN Ot T85.528A DISPLACEMENT OF GASTROINTESTINAL PROSTH 08/12/2017 REJI HAGER APRN Ot Z79.82 TECHNICAL SUPPORT REPRESENTATIVE (CURRENT) USE OF ASPIRIN 08/14/2017 REJI HAGER APRN Ot E03.9 HYPOTHYROIDISM, UNSPECIFIED 08/14/2017 REJI HAGER APRN Ot E78.00 PURE HYPERCHOLESTEROLEMIA, UNSPECIFIED 08/14/2017 REJI HAGER APRN Ot I10 ESSENTIAL (PRIMARY) HYPERTENSION 08/14/2017 REJI HAGER APRN Ot I25.10 ATHSCL HEART DISEASE OF [place] CORONARY 08/14/2017 REJI HAGER APRN Ot M48.02 SPINAL STENOSIS, CERVICAL REGION 08/14/2017 REJI HAGER APRN Ot T85.528A DISPLACEMENT OF GASTROINTESTINAL PROSTH 08/14/2017 REJI HAGER APRN Ot Z79.82 TECHNICAL SUPPORT REPRESENTATIVE (CURRENT) USE OF ASPIRIN 08/17/2017 ISI SENA MD Ot E86.0 DEHYDRATION 08/17/2017 ISI SENA MD, Ot I10 ESSENTIAL (PRIMARY) HYPERTENSION 08/17/2017 ISI SENA MD Ot N39.0 URINARY TRACT INFECTION, SITE NOT SPECIF 08/17/2017 ISI SENA MD Ot R11.2 NAUSEA WITH VOMITING, UNSPECIFIED 08/17/2017 ISI SENA MD Ot R13.10 DYSPHAGIA, UNSPECIFIED 08/17/2017 ISI SENA MD, Ot T83.511A I/I REACT D/T INDWELLING URETHRAL CATHET 08/17/2017 ISI SENA MD Ot E86.0 DEHYDRATION 08/17/2017 ISI SENA MD Ot I10 ESSENTIAL (PRIMARY) HYPERTENSION 08/17/2017 ISI SENA MD Ot N39.0 URINARY TRACT INFECTION, SITE NOT SPECIF 08/17/2017 ISI SENA MD Ot R11.2 NAUSEA WITH VOMITING, UNSPECIFIED 08/17/2017 ISI SENA MD Ot R13.10 DYSPHAGIA, UNSPECIFIED 08/17/2017 ISI SENA MD, Ot T83.511A I/I REACT D/T INDWELLING URETHRAL CATHET 08/19/2017 MARISOL ROSE MD Ot E03.9 HYPOTHYROIDISM, UNSPECIFIED 08/19/2017 MARISOL ROSE MD Ot E78.00 PURE HYPERCHOLESTEROLEMIA, UNSPECIFIED 08/19/2017 MARISOL ROSE MD Ot F03.90 UNSPECIFIED DEMENTIA WITHOUT BEHAVIORAL 08/19/2017 MARISOL ROSE MD Ot I10 ESSENTIAL (PRIMARY) HYPERTENSION 08/19/2017 MARISOL ROSE MD Ot I25.10 ATHSCL HEART DISEASE OF [place] CORONARY 08/19/2017 MARISOL ROSE MD Ot T82.42XA DISPLACEMENT OF VASCULAR DIALYSIS CATHET 08/19/2017 MARISOL ROSE MD Ot Z79.82 INTERMEDIATE (CURRENT) USE OF ASPIRIN 08/19/2017 MARISOL ROSE MD Ot Z87.440 PERSONAL HISTORY OF URINARY (TRACT) INFE 08/19/2017 MARISOL ROSE MD Ot Z87.891 PERSONAL HISTORY OF NICOTINE DEPENDENCE 08/19/2017 MARISOL ROSE MD Ot Z96.652 PRESENCE OF LEFT ARTIFICIAL KNEE JOINT 08/20/2017 MARC WILDER MD Ot E03.9 HYPOTHYROIDISM, UNSPECIFIED 08/20/2017 MARC WILDER MD Ot E78.00 PURE HYPERCHOLESTEROLEMIA, UNSPECIFIED 08/20/2017 MARC WILDER MD Ot F03.90 UNSPECIFIED DEMENTIA WITHOUT BEHAVIORAL 08/20/2017 MARC WILDER MD Ot I10 ESSENTIAL (PRIMARY) HYPERTENSION 08/20/2017 MARC WILDER MD Ot I25.10 ATHSCL HEART DISEASE OF [place] CORONARY 08/20/2017 MARC WILDER MD Ot 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 08/20/2017 MARC WILDER MD Ot Z79.82 INTERMEDIATE (CURRENT) USE OF ASPIRIN 08/20/2017 MARC WILDER MD Ot Z87.891 PERSONAL HISTORY OF NICOTINE DEPENDENCE 08/20/2017 MARC WILDER MD Ot Z96.652 PRESENCE OF LEFT ARTIFICIAL KNEE JOINT 08/21/2017 MARISOL ROSE MD Ot E03.9 HYPOTHYROIDISM, UNSPECIFIED 08/21/2017 MARISOL ROSE MD Ot E78.00 PURE HYPERCHOLESTEROLEMIA, UNSPECIFIED 08/21/2017 MARISOL ROSE MD Ot F03.90 UNSPECIFIED DEMENTIA WITHOUT BEHAVIORAL 08/21/2017 MARISOL ROSE MD Ot I10 ESSENTIAL (PRIMARY) HYPERTENSION 08/21/2017 MARISOL ROSE MD Ot I25.10 ATHSCL HEART DISEASE OF [place] CORONARY 08/21/2017 MARISOL ROSE MD Ot T82.42XA DISPLACEMENT OF VASCULAR DIALYSIS CATHET 08/21/2017 MARISOL ROSE MD Ot Z79.82 INTERMEDIATE (CURRENT) USE OF ASPIRIN 08/21/2017 MARISOL ROSE MD Ot Z87.440 PERSONAL HISTORY OF URINARY (TRACT) INFE 08/21/2017 MARISOL ROSE MD Ot Z87.891 PERSONAL HISTORY OF NICOTINE DEPENDENCE 08/21/2017 MARISOL ROSE MD Ot Z96.652 PRESENCE OF LEFT ARTIFICIAL KNEE JOINT 08/22/2017 MARC WILDER MD Ot E03.9 HYPOTHYROIDISM, UNSPECIFIED 08/22/2017 MARC WILDER MD Ot E78.00 PURE HYPERCHOLESTEROLEMIA, UNSPECIFIED 08/22/2017 MARC WILDER MD Ot F03.90 UNSPECIFIED DEMENTIA WITHOUT BEHAVIORAL 08/22/2017 MARC WILDER MD Ot I10 ESSENTIAL (PRIMARY) HYPERTENSION 08/22/2017 MARC WILDER MD Ot I25.10 ATHSCL HEART DISEASE OF [place] CORONARY 08/22/2017 MARC WILDER MD Ot 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 08/22/2017 MARC WILDER MD Ot Z79.82 TECHNICAL SUPPORT REPRESENTATIVE (CURRENT) USE OF ASPIRIN 08/22/2017 MARC WILDER MD Ot Z87.891 PERSONAL HISTORY OF NICOTINE DEPENDENCE 08/22/2017 MARC WILDER MD Ot Z96.652 PRESENCE OF LEFT ARTIFICIAL KNEE JOINT 08/22/2017 ISI SENA MD Ot E86.0 DEHYDRATION 08/22/2017 ISI SENA MD, Ot I10 ESSENTIAL (PRIMARY) HYPERTENSION 08/22/2017 ISI SENA MD, Ot I25.10 ATHSCL HEART DISEASE OF [place] CORONARY 08/22/2017 ISI SENA MD, Ot 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 08/22/2017 ISI SENA MD, Ot R13.10 DYSPHAGIA, UNSPECIFIED 08/22/2017 ISI SENA MD, Ot Z79.82 TECHNICAL SUPPORT REPRESENTATIVE (CURRENT) USE OF ASPIRIN 08/22/2017 ISI SENA MD, Ot Z79.899 OTHER INTERMEDIATE (CURRENT) DRUG THERAPY 08/22/2017 ISI SENA MD Ot Z95.5 PRESENCE OF CORONARY ANGIOPLASTY IMPLANT 08/22/2017 LEIGHA ASTORGA, REAB Barker Ot 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 08/22/2017 ISI SENA MD, Ot E86.0 DEHYDRATION 08/22/2017 ISI SENA MD, Ot I10 ESSENTIAL (PRIMARY) HYPERTENSION 08/22/2017 ISI SENA MD, Ot I25.10 ATHSCL HEART DISEASE OF [place] CORONARY 08/22/2017 ISI SENA MD, Ot 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 08/22/2017 ISI SENA MD Ot R13.10 DYSPHAGIA, UNSPECIFIED 08/22/2017 ISI SENA MD, Ot Z79.82 INTERMEDIATE (CURRENT) USE OF ASPIRIN 08/22/2017 ISI SENA MD, Ot Z79.899 OTHER TECHNICAL SUPPORT REPRESENTATIVE (CURRENT) DRUG THERAPY 08/22/2017 ISI SENA MD, Ot Z95.5 PRESENCE OF CORONARY ANGIOPLASTY IMPLANT 08/22/2017 ISI SENA MD Ot E86.0 DEHYDRATION 08/22/2017 ISI SENA MD Ot I10 ESSENTIAL (PRIMARY) HYPERTENSION 08/22/2017 ISI SENA MD Ot I25.10 ATHSCL HEART DISEASE OF [place] CORONARY 08/22/2017 ISI SENA MD Ot 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 08/22/2017 ISI SENA MD, Ot R13.10 DYSPHAGIA, UNSPECIFIED 08/22/2017 ISI SENA MD, Ot Z79.82 INTERMEDIATE (CURRENT) USE OF ASPIRIN 08/22/2017 ISI SENA MD, Ot Z79.899 OTHER TECHNICAL SUPPORT REPRESENTATIVE (CURRENT) DRUG THERAPY 08/22/2017 ISI SENA MD, Ot Z95.5 PRESENCE OF CORONARY ANGIOPLASTY IMPLANT 08/22/2017 LEIGHA ASTORGA, REBA Barker Ot 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 08/25/2017 ISI SENA MD, Ot E86.0 DEHYDRATION 08/25/2017 ISI SENA MD, Ot I10 ESSENTIAL (PRIMARY) HYPERTENSION 08/25/2017 ISI SENA MD, Ot I25.10 ATHSCL HEART DISEASE OF [place] CORONARY 08/25/2017 ISI SENA MD, Ot 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 08/25/2017 ISI SENA MD Ot R13.10 DYSPHAGIA, UNSPECIFIED 08/25/2017 ISI SENA MD, Ot Z79.82 INTERMEDIATE (CURRENT) USE OF ASPIRIN 08/25/2017 ISI SENA MD, Ot Z79.899 OTHER TECHNICAL SUPPORT REPRESENTATIVE (CURRENT) DRUG THERAPY 08/25/2017 ISI SENA MD, Ot Z95.5 PRESENCE OF CORONARY ANGIOPLASTY IMPLANT 08/31/2017 ISI SENA MD Ot E03.9 HYPOTHYROIDISM, UNSPECIFIED 08/31/2017 ISI SENA MD Ot E78.00 PURE HYPERCHOLESTEROLEMIA, UNSPECIFIED 08/31/2017 JAIDAISI ANTHONY MD, Ot E86.0 DEHYDRATION 08/31/2017 ISI SENA MD Ot F03.90 UNSPECIFIED DEMENTIA WITHOUT BEHAVIORAL 08/31/2017 ISI SENA MD, Ot H40.9 UNSPECIFIED GLAUCOMA 08/31/2017 ISI SENA MD, Ot I10 ESSENTIAL (PRIMARY) HYPERTENSION 08/31/2017 ISI SENA MD Ot I25.10 ATHSCL HEART DISEASE OF [place] CORONARY 08/31/2017 ISI SENA MD, Ot J69.0 PNEUMONITIS DUE TO INHALATION OF FOOD AN 08/31/2017 ISI SENA MD Ot K59.09 OTHER CONSTIPATION 08/31/2017 ISI SENA MD, Ot M19.91 PRIMARY OSTEOARTHRITIS, UNSPECIFIED SITE 08/31/2017 ISI SENA MD, Ot M48.00 SPINAL STENOSIS, SITE UNSPECIFIED 08/31/2017 ISI SENA MD, Ot N19 UNSPECIFIED KIDNEY FAILURE 08/31/2017 ISI SENA MD Ot R06.03 ACUTE RESPIRATORY DISTRESS 08/31/2017 ISI SENA MD, Ot R13.10 DYSPHAGIA, UNSPECIFIED 08/31/2017 ISI SENA MD Ot R64 CACHEXIA 08/31/2017 ISI SENA MD, Ot T88.8XXS OTH COMPLICATIONS OF SURGICAL AND MEDICA 08/31/2017 ISI SENA MD, Ot Z66 DO NOT RESUSCITATE 08/31/2017 ISI SENA MD, Ot Z87.891 PERSONAL HISTORY OF NICOTINE DEPENDENCE 08/31/2017 ISI SENA MD, Ot Z93.1 GASTROSTOMY STATUS 08/31/2017 ISI SENA MD, Ot 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 08/31/2017 ISI SENA MD, Ot Z95.5 PRESENCE OF CORONARY ANGIOPLASTY IMPLANT 08/31/2017 ISI SENA MD, Ot Z96.652 PRESENCE OF LEFT ARTIFICIAL KNEE JOINT 09/05/2017 ISI SENA MD Ot E03.9 HYPOTHYROIDISM, UNSPECIFIED 09/05/2017 ISI SENA MD Ot E78.00 PURE HYPERCHOLESTEROLEMIA, UNSPECIFIED 09/05/2017 ISI SENA MD Ot E86.0 DEHYDRATION 09/05/2017 ISI SENA MD, Ot F03.90 UNSPECIFIED DEMENTIA WITHOUT BEHAVIORAL 09/05/2017 ISI SENA MD, Ot H40.9 UNSPECIFIED GLAUCOMA 09/05/2017 ISI SENA MD, Ot I10 ESSENTIAL (PRIMARY) HYPERTENSION 09/05/2017 ISI SENA MD Ot I25.10 ATHSCL HEART DISEASE OF [place] CORONARY 09/05/2017 ISI SENA MD, Ot J69.0 PNEUMONITIS DUE TO INHALATION OF FOOD AN 09/05/2017 ISI SENA MD, Ot K59.09 OTHER CONSTIPATION 09/05/2017 ISI SENA MD, Ot M19.91 PRIMARY OSTEOARTHRITIS, UNSPECIFIED SITE 09/05/2017 ISI SENA MD, Ot M48.00 SPINAL STENOSIS, SITE UNSPECIFIED 09/05/2017 ISI SENA MD, Ot N19 UNSPECIFIED KIDNEY FAILURE 09/05/2017 ISI SENA MD Ot R06.03 ACUTE RESPIRATORY DISTRESS 09/05/2017 ISI SENA MD, Ot R13.10 DYSPHAGIA, UNSPECIFIED 09/05/2017 ISI SENA MD Ot R64 CACHEXIA 09/05/2017 ISI SENA MD, Ot T88.8XXS OTH COMPLICATIONS OF SURGICAL AND MEDICA 09/05/2017 ISI SENA MD, Ot Z66 DO NOT RESUSCITATE 09/05/2017 ISI SENA MD, Ot Z87.891 PERSONAL HISTORY OF NICOTINE DEPENDENCE 09/05/2017 ISI SENA MD, Ot Z93.1 GASTROSTOMY STATUS 09/05/2017 ISI SENA MD, Ot 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 09/05/2017 ISI SENA MD, Ot Z95.5 PRESENCE OF CORONARY ANGIOPLASTY IMPLANT 09/05/2017 ISI SENA MD, Ot Z96.652 PRESENCE OF LEFT ARTIFICIAL KNEE JOINT Procedures Code Description Performed By Performed On [id number] REPLACE OF L KNEE JT WITH SYNTH SUB, ANGE 01/21/2015 [id number] FUSION 2-6 C JT W INTBD FUS DEV, ANT LATA 07/10/2017 [id number] INSERTION OF FEEDING DEVICE INTO STOMACH 07/17/2017 [id number] INSPECTION OF LARYNX, ENDO 08/10/2017 Results Test [...] resistant Staphylococcus aureus (MRSA) screening culture NEG [facility] Whole blood basic metabolic [...] culture - 08/02/17 12:46 Bacterial urine culture [id number] NRG COLONY COUNT . NRG FTX;REPORTABLE 40,000 [...] plasma calcium measurement (mass/volume) 8.8 mg/dL 8.5-10.1 Complete blood count (CBC) with automated white blood cell (WBC) differential - 08/21/17 17:00 Blood leukocytes automated count (number/volume) 9.3 10*3/uL 4.3-11.0 Blood erythrocytes automated count (number/volume) 3.81 10*6/uL 4.35-5.85 Venous blood hemoglobin measurement (mass/volume) 11.6 g/dL 13.3-17.7 Blood hematocrit (volume fraction) 34 % 40-54 Automated erythrocyte mean corpuscular volume 89 [foz_us] 80-99 Automated erythrocyte mean corpuscular hemoglobin (mass per erythrocyte) 30 pg 25-34 Automated erythrocyte mean corpuscular hemoglobin concentration measurement ( mass/volume) 34 g/dL 32-36 Automated erythrocyte distribution width ratio 12.9 % 10.0-14.5 Automated blood platelet count (count/volume) 422 10*3/uL 130-400 Automated blood platelet mean volume measurement 10.7 [foz_us] 7.4-10.4 Automated blood neutrophils/100 leukocytes 70 % 42-75 Automated blood lymphocytes/100 leukocytes 14 % 12-44 Blood monocytes/100 leukocytes 11 % 0-12 Automated blood eosinophils/100 leukocytes 4 % 0-10 Automated blood basophils/100 leukocytes 1 % 0-10 Blood neutrophils automated count (number/volume) 6.5 10*3 1.8-7.8 Blood lymphocytes automated count (number/volume) 1.3 10*3 1.0-4.0 Blood monocytes automated count (number/volume) 1.0 10*3 0.0-1.0 Automated eosinophil count 0.4 10*3/uL 0.0-0.3 Automated blood basophil count (count/volume) 0.1 10*3/uL 0.0-0.1 Comprehensive metabolic panel - 08/21/17 17:00 Serum or plasma sodium measurement (moles/volume) 137 mmol/L 135-145 Serum or plasma potassium measurement (moles/volume) 4.0 mmol/L 3.6-5.0 Serum or plasma chloride measurement (moles/volume) 101 mmol/L 98-107 Carbon dioxide 24 mmol/L 21-32 Serum or plasma anion gap determination (moles/volume) 12 mmol/L 5-14 Serum or plasma urea nitrogen measurement (mass/volume) 34 mg/dL 7-18 Serum or plasma creatinine measurement (mass/volume) 1.27 mg/dL 0.60-1.30 Serum or plasma urea nitrogen/creatinine mass ratio 27 NRG Serum or plasma creatinine measurement with calculation of estimated glomerular filtration rate 54 NRG Serum or plasma glucose measurement (mass/volume) 93 mg/dL 70-105 Serum or plasma calcium measurement (mass/volume) 9.9 mg/dL 8.5-10.1 Serum or plasma total bilirubin measurement (mass/volume) 1.0 mg/dL 0.1-1.0 Serum or plasma alkaline phosphatase measurement (enzymatic activity/volume) 81 U/L 40-136 Serum or plasma aspartate aminotransferase measurement (enzymatic activity/ volume) 35 U/L 5-34 Serum or plasma alanine aminotransferase measurement (enzymatic activity/volume ) 44 U/L 0-55 Serum or plasma protein measurement (mass/volume) 7.3 g/dL 6.4-8.2 Serum or plasma albumin measurement (mass/volume) 3.5 g/dL 3.2-4.5 Complete blood count (CBC) with automated white blood cell (WBC) differential - 08/22/17 06:00 Blood leukocytes automated count (number/volume) 8.2 10*3/uL 4.3-11.0 Blood erythrocytes automated count (number/volume) 3.50 10*6/uL 4.35-5.85 Venous blood hemoglobin measurement (mass/volume) 10.5 g/dL 13.3-17.7 Blood hematocrit (volume fraction) 32 % 40-54 Automated erythrocyte mean corpuscular volume 91 [foz_us] 80-99 Automated erythrocyte mean corpuscular hemoglobin (mass per erythrocyte) 30 pg 25-34 Automated erythrocyte mean corpuscular hemoglobin concentration measurement ( mass/volume) 33 g/dL 32-36 Automated erythrocyte distribution width ratio 13.2 % 10.0-14.5 Automated blood platelet count (count/volume) 359 10*3/uL 130-400 Automated blood platelet mean volume measurement 11.4 [foz_us] 7.4-10.4 Automated blood neutrophils/100 leukocytes 73 % 42-75 Automated blood lymphocytes/100 leukocytes 14 % 12-44 Blood monocytes/100 leukocytes 10 % 0-12 Automated blood eosinophils/100 leukocytes 2 % 0-10 Automated blood basophils/100 leukocytes 0 % 0-10 Blood neutrophils automated count (number/volume) 6.0 10*3 1.8-7.8 Blood lymphocytes automated count (number/volume) 1.2 10*3 1.0-4.0 Blood monocytes automated count (number/volume) 0.8 10*3 0.0-1.0 Automated eosinophil count 0.2 10*3/uL 0.0-0.3 Automated blood basophil count (count/volume) 0.0 10*3/uL 0.0-0.1 Comprehensive metabolic panel - 08/22/17 06:00 Serum or plasma sodium measurement (moles/volume) 139 mmol/L 135-145 Serum or plasma potassium measurement (moles/volume) 4.2 mmol/L 3.6-5.0 Serum or plasma chloride measurement (moles/volume) 107 mmol/L 98-107 Carbon dioxide 19 mmol/L 21-32 Serum or plasma anion gap determination (moles/volume) 13 mmol/L 5-14 Serum or plasma urea nitrogen measurement (mass/volume) 36 mg/dL 7-18 Serum or plasma creatinine measurement (mass/volume) 1.39 mg/dL 0.60-1.30 Serum or plasma urea nitrogen/creatinine mass ratio 26 NRG Serum or plasma creatinine measurement with calculation of estimated glomerular filtration rate 49 NRG Serum or plasma glucose measurement (mass/volume) 88 mg/dL 70-105 Serum or plasma calcium measurement (mass/volume) 9.0 mg/dL 8.5-10.1 Serum or plasma total bilirubin measurement (mass/volume) 0.8 mg/dL 0.1-1.0 Serum or plasma alkaline phosphatase measurement (enzymatic activity/volume) 73 U/L 40-136 Serum or plasma aspartate aminotransferase measurement (enzymatic activity/ volume) 28 U/L 5-34 Serum or plasma alanine aminotransferase measurement (enzymatic activity/volume ) 32 U/L 0-55 Serum or plasma protein measurement (mass/volume) 6.4 g/dL 6.4-8.2 Serum or plasma albumin measurement (mass/volume) 3.1 g/dL 3.2-4.5 Complete blood count (CBC) with automated white blood cell (WBC) differential - 08/28/17 11:00 Blood leukocytes automated count (number/volume) 9.3 10*3/uL 4.3-11.0 Blood erythrocytes automated count (number/volume) 3.62 10*6/uL 4.35-5.85 Venous blood hemoglobin measurement (mass/volume) 10.8 g/dL 13.3-17.7 Blood hematocrit (volume fraction) 33 % 40-54 Automated erythrocyte mean corpuscular volume 91 [foz_us] 80-99 Automated erythrocyte mean corpuscular hemoglobin (mass per erythrocyte) 30 pg 25-34 Automated erythrocyte mean corpuscular hemoglobin concentration measurement ( mass/volume) 33 g/dL 32-36 Automated erythrocyte distribution width ratio 13.7 % 10.0-14.5 Automated blood platelet count (count/volume) 291 10*3/uL 130-400 Automated blood platelet mean volume measurement 10.9 [foz_us] 7.4-10.4 Automated blood neutrophils/100 leukocytes 87 % 42-75 Automated blood lymphocytes/100 leukocytes 6 % 12-44 Blood monocytes/100 leukocytes 7 % 0-12 Automated blood eosinophils/100 leukocytes 0 % 0-10 Automated blood basophils/100 leukocytes 0 % 0-10 Blood neutrophils automated count (number/volume) 8.1 10*3 1.8-7.8 Blood lymphocytes automated count (number/volume) 0.6 10*3 1.0-4.0 Blood monocytes automated count (number/volume) 0.6 10*3 0.0-1.0 Automated eosinophil count 0.0 10*3/uL 0.0-0.3 Automated blood basophil count (count/volume) 0.0 10*3/uL 0.0-0.1 PT panel in platelet poor plasma by coagulation assay - 08/28/17 11:00 Prothrombin time (PT) in platelet poor plasma by coagulation assay 14.2 s 12.2-14.7 INR in platelet poor plasma or blood by coagulation assay 1.1 0.8-1.4 Activated partial thromboplastin time (aPTT) in platelet poor plasma bycoagulation assay - 08/28/17 11:00 Activated partial thromboplastin time (aPTT) in platelet poor plasma bycoagulation assay 30 s 24-35 Blood lactic acid measurement (moles/volume) - 08/28/17 11:00 Blood lactic acid measurement (moles/volume) 1.48 mmol/L 0.50-2.00 Comprehensive metabolic panel - 08/28/17 11:00 Serum or plasma sodium measurement (moles/volume) 132 mmol/L 135-145 Serum or plasma potassium measurement (moles/volume) 4.8 mmol/L 3.6-5.0 Serum or plasma chloride measurement (moles/volume) 95 mmol/L 98-107 Carbon dioxide 24 mmol/L 21-32 Serum or plasma anion gap determination (moles/volume) 13 mmol/L 5-14 Serum or plasma urea nitrogen measurement (mass/volume) 41 mg/dL 7-18 Serum or plasma creatinine measurement (mass/volume) 2.23 mg/dL 0.60-1.30 Serum or plasma urea nitrogen/creatinine mass ratio 18 NRG Serum or plasma creatinine measurement with calculation of estimated glomerular filtration rate 28 NRG Serum or plasma glucose measurement (mass/volume) 113 mg/dL 70-105 Serum or plasma calcium measurement (mass/volume) 9.6 mg/dL 8.5-10.1 Serum or plasma total bilirubin measurement (mass/volume) 0.9 mg/dL 0.1-1.0 Serum or plasma alkaline phosphatase measurement (enzymatic activity/volume) 87 U/L 40-136 Serum or plasma aspartate aminotransferase measurement (enzymatic activity/ volume) 35 U/L 5-34 Serum or plasma alanine aminotransferase measurement (enzymatic activity/volume ) 36 U/L 0-55 Serum or plasma protein measurement (mass/volume) 7.9 g/dL 6.4-8.2 Serum or plasma albumin measurement (mass/volume) 3.5 g/dL 3.2-4.5 Blood manual differential performed detection - 08/28/17 11:00 Blood monocytes/100 leukocytes 4 % NRG Manual blood segmented neutrophils/100 leukocytes 84 % NRG Blood band neutrophils/100 leukocytes 3 % NRG Manual blood lymphocytes/100 leukocytes 9 % NRG Manual eosinophils/100 leukocytes in nose 0 % NRG Manual blood basophils/100 leukocytes 0 % NRG Blood erythrocyte morphology finding identification NORMAL NRG Bacterial blood culture - 08/28/17 11:00 FREE TEXT EXTERNAL SENSITIVITY REPORTED 08/29/17 16:25 NRG QUANTITY OF GROWTH Isolated NRG Bacterial blood culture [id number] NRG FREE TEXT ENTRY [address] SENA 08/29/17 16:20 NRG FREE TEXT ENTRY 3 AND TO KATHERINE SAINI 08/29/17 16:[address] NR Bacterial susceptibility panel - 08/28/17 11:00 Gentamicin susceptibility test by minimum inhibitory concentration SYN-R NRG Erythromycin susceptibility test by minimum inhibitory concentration >= NRG Vancomycin susceptibility test by minimum inhibitory concentration > = NRG Tetracycline susceptibility test by minimum inhibitory concentration <= NRG Ampicillin susceptibility test by minimum inhibitory concentration < = NRG Linezolid susceptibility test by minimum inhibitory concentration 2 NRG Bacterial blood culture - 08/28/17 11:10 FREE TEXT EXTERNAL REFER TO [id number] FOR SENSITIVITY NRG QUANTITY OF GROWTH Isolated NRG Bacterial blood culture [id number] NRG Complete urinalysis with reflex to culture - 08/28/17 11:40 Urine color determination YELLOW NRG Urine clarity determination CLEAR NRG Urine pH measurement by test strip 6.5 5-9 Specific gravity of urine by test strip 1.010 1.016- 1.022 Urine protein assay by test strip, semi-quantitative 1+ NEGATIVE Urine glucose detection by automated test strip NEGATIVE NEGATIVE Erythrocytes detection in urine sediment by light microscopy NEGATIVE NEGATIVE Urine ketones detection by automated test strip NEGATIVE NEGATIVE Urine nitrite detection by test strip NEGATIVE NEGATIVE Urine total bilirubin detection by test strip NEGATIVE NEGATIVE Urine urobilinogen measurement by automated test strip (mass/volume) NORMAL NORMAL Urine leukocyte esterase detection by dipstick 3+ NEGATIVE Automated urine sediment erythrocyte count by microscopy (number/high power field) NONE NRG Automated urine sediment leukocyte count by microscopy (number/high power field ) [HPF] NRG Bacteria detection in urine sediment by light microscopy FEW NRG Squamous epithelial cells detection in urine sediment by light microscopy RARE NRG Crystals detection in urine sediment by light microscopy NONE NRG Casts detection in urine sediment by light microscopy NONE NRG Mucus detection in urine sediment by light microscopy NEGATIVE NRG Complete urinalysis with reflex to culture YES NRG Bacterial urine culture - 08/28/17 11:40 Bacterial urine culture SEE COMMEN NRG COLONY COUNT . NRG FTX;REPORTABLE 40,000 CFU/ML NRG FREE TEXT ENTRY 2 SENSITIVITY REPORTED 08/30/17 11:05 NRG RML Sensitivity Panel - 08/28/17 11:40 Vancomycin susceptibility test by minimum inhibitory concentration > NRG Levofloxacin susceptibility test by minimum inhibitory concentration > NRG Tetracycline susceptibility test by minimum inhibitory concentration <= NRG Ampicillin susceptibility test by minimum inhibitory concentration 2 NRG Nitrofurantoin susceptibility test by minimum inhibitory concentration <= NRG Linezolid susceptibility test by minimum inhibitory concentration 2 NRG Penicillin G susceptibility test by minimum inhibitory concentration 8 NRG Streptomycin 2000 mcg/mL susceptibility test by minimum inhibitory concentration S NRG Daptomycin susc DEV 2 NRG Complete blood count (CBC) with automated white blood cell (WBC) differential - 08/29/17 05:17 Blood leukocytes automated count (number/volume) 7.9 10*3/uL 4.3-11.0 Blood erythrocytes automated count (number/volume) 3.05 10*6/uL 4.35-5.85 Venous blood hemoglobin measurement (mass/volume) 9.3 g/dL 13.3-17.7 Blood hematocrit (volume fraction) 28 % 40-54 Automated erythrocyte mean corpuscular volume 92 [foz_us] 80-99 Automated erythrocyte mean corpuscular hemoglobin (mass per erythrocyte) 31 pg 25-34 Automated erythrocyte mean corpuscular hemoglobin concentration measurement ( mass/volume) 33 g/dL 32-36 Automated erythrocyte distribution width ratio 13.4 % 10.0-14.5 Automated blood platelet count (count/volume) 215 10*3/uL 130-400 Automated blood platelet mean volume measurement 11.6 [foz_us] 7.4-10.4 Automated blood neutrophils/100 leukocytes 81 % 42-75 Automated blood lymphocytes/100 leukocytes 9 % 12-44 Blood monocytes/100 leukocytes 9 % 0-12 Automated blood eosinophils/100 leukocytes 1 % 0-10 Automated blood basophils/100 leukocytes 0 % 0-10 Blood neutrophils automated count (number/volume) 6.4 10*3 1.8-7.8 Blood lymphocytes automated count (number/volume) 0.7 10*3 1.0-4.0 Blood monocytes automated count (number/volume) 0.7 10*3 0.0-1.0 Automated eosinophil count 0.1 10*3/uL 0.0-0.3 Automated blood basophil count (count/volume) 0.0 10*3/uL 0.0-0.1 Comprehensive metabolic panel - 08/29/17 05:17 Serum or plasma sodium measurement (moles/volume) 138 mmol/L 135-145 Serum or plasma potassium measurement (moles/volume) 4.4 mmol/L 3.6-5.0 Serum or plasma chloride measurement (moles/volume) 104 mmol/L 98-107 Carbon dioxide 23 mmol/L 21-32 Serum or plasma anion gap determination (moles/volume) 11 mmol/L 5-14 Serum or plasma urea nitrogen measurement (mass/volume) 30 mg/dL 7-18 Serum or plasma creatinine measurement (mass/volume) 1.50 mg/dL 0.60-1.30 Serum or plasma urea nitrogen/creatinine mass ratio 20 NRG Serum or plasma creatinine measurement with calculation of estimated glomerular filtration rate 45 NRG Serum or plasma glucose measurement (mass/volume) 100 mg/dL 70-105 Serum or plasma calcium measurement (mass/volume) 8.9 mg/dL 8.5-10.1 Serum or plasma total bilirubin measurement (mass/volume) 0.7 mg/dL 0.1-1.0 Serum or plasma alkaline phosphatase measurement (enzymatic activity/volume) 75 U/L 40-136 Serum or plasma aspartate aminotransferase measurement (enzymatic activity/ volume) 29 U/L 5-34 Serum or plasma alanine aminotransferase measurement (enzymatic activity/volume ) 32 U/L 0-55 Serum or plasma protein measurement (mass/volume) 6.3 g/dL 6.4-8.2 Serum or plasma albumin measurement (mass/volume) 2.8 g/dL 3.2-4.5 Complete blood count (CBC) with automated white blood cell (WBC) differential - 08/30/17 05:31 Blood leukocytes automated count (number/volume) 7.7 10*3/uL 4.3-11.0 Blood erythrocytes automated count (number/volume) 2.98 10*6/uL 4.35-5.85 Venous blood hemoglobin measurement (mass/volume) 8.8 g/dL 13.3-17.7 Blood hematocrit (volume fraction) 27 % 40-54 Automated erythrocyte mean corpuscular volume 92 [foz_us] 80-99 Automated erythrocyte mean corpuscular hemoglobin (mass per erythrocyte) 30 pg 25-34 Automated erythrocyte mean corpuscular hemoglobin concentration measurement ( mass/volume) 32 g/dL 32-36 Automated erythrocyte distribution width ratio 13.3 % 10.0-14.5 Automated blood platelet count (count/volume) 215 10*3/uL 130-400 Automated blood platelet mean volume measurement 11.3 [foz_us] 7.4-10.4 Automated blood neutrophils/100 leukocytes 74 % 42-75 Automated blood lymphocytes/100 leukocytes 12 % 12-44 Blood monocytes/100 leukocytes 11 % 0-12 Automated blood eosinophils/100 leukocytes 3 % 0-10 Automated blood basophils/100 leukocytes 0 % 0-10 Blood neutrophils automated count (number/volume) 5.8 10*3 1.8-7.8 Blood lymphocytes automated count (number/volume) 0.9 10*3 1.0-4.0 Blood monocytes automated count (number/volume) 0.8 10*3 0.0-1.0 Automated eosinophil count 0.2 10*3/uL 0.0-0.3 Automated blood basophil count (count/volume) 0.0 10*3/uL 0.0-0.1 Whole blood basic metabolic panel - 08/30/17 05:31 Serum or plasma sodium measurement (moles/volume) 139 mmol/L 135-145 Serum or plasma potassium measurement (moles/volume) 3.9 mmol/L 3.6-5.0 Serum or plasma chloride measurement (moles/volume) 106 mmol/L 98-107 Carbon dioxide 22 mmol/L 21-32 Serum or plasma anion gap determination (moles/volume) 11 mmol/L 5-14 Serum or plasma urea nitrogen measurement (mass/volume) 21 mg/dL 7-18 Serum or plasma creatinine measurement (mass/volume) 1.07 mg/dL 0.60-1.30 Serum or plasma urea nitrogen/creatinine mass ratio 20 NRG Serum or plasma creatinine measurement with calculation of estimated glomerular filtration rate > NRG Serum or plasma glucose measurement (mass/volume) 97 mg/dL 70-105 Serum or plasma calcium measurement (mass/volume) 8.7 mg/dL 8.5-10.1 Complete blood count (CBC) with automated white blood cell (WBC) differential - 08/31/17 06:43 Blood leukocytes automated count (number/volume) 9.1 10*3/uL 4.3-11.0 Blood erythrocytes automated count (number/volume) 2.91 10*6/uL 4.35-5.85 Venous blood hemoglobin measurement (mass/volume) 8.9 g/dL 13.3-17.7 Blood hematocrit (volume fraction) 27 % 40-54 Automated erythrocyte mean corpuscular volume 92 [foz_us] 80-99 Automated erythrocyte mean corpuscular hemoglobin (mass per erythrocyte) 31 pg 25-34 Automated erythrocyte mean corpuscular hemoglobin concentration measurement ( mass/volume) 33 g/dL 32-36 Automated erythrocyte distribution width ratio 13.3 % 10.0-14.5 Automated blood platelet count (count/volume) 245 10*3/uL 130-400 Automated blood platelet mean volume measurement 11.0 [foz_us] 7.4-10.4 Automated blood neutrophils/100 leukocytes 78 % 42-75 Automated blood lymphocytes/100 leukocytes 11 % 12-44 Blood monocytes/100 leukocytes 7 % 0-12 Automated blood eosinophils/100 leukocytes 4 % 0-10 Automated blood basophils/100 leukocytes 0 % 0-10 Blood neutrophils automated count (number/volume) 7.1 10*3 1.8-7.8 Blood lymphocytes automated count (number/volume) 1.0 10*3 1.0-4.0 Blood monocytes automated count (number/volume) 0.6 10*3 0.0-1.0 Automated eosinophil count 0.4 10*3/uL 0.0-0.3 Automated blood basophil count (count/volume) 0.0 10*3/uL 0.0-0.1 Complete blood count (CBC) with automated white blood cell (WBC) differential - 09/02/17 05:25 Blood leukocytes automated count (number/volume) 7.4 10*3/uL 4.3-11.0 Blood erythrocytes automated count (number/volume) 2.95 10*6/uL 4.35-5.85 Venous blood hemoglobin measurement (mass/volume) 8.9 g/dL 13.3-17.7 Blood hematocrit (volume fraction) 27 % 40-54 Automated erythrocyte mean corpuscular volume 92 [foz_us] 80-99 Automated erythrocyte mean corpuscular hemoglobin (mass per erythrocyte) 30 pg 25-34 Automated erythrocyte mean corpuscular hemoglobin concentration measurement ( mass/volume) 33 g/dL 32-36 Automated erythrocyte distribution width ratio 13.0 % 10.0-14.5 Automated blood platelet count (count/volume) 232 10*3/uL 130-400 Automated blood platelet mean volume measurement 11.0 [foz_us] 7.4-10.4 Automated blood neutrophils/100 leukocytes 68 % 42-75 Automated blood lymphocytes/100 leukocytes 17 % 12-44 Blood monocytes/100 leukocytes 8 % 0-12 Automated blood eosinophils/100 leukocytes 6 % 0-10 Automated blood basophils/100 leukocytes 0 % 0-10 Blood neutrophils automated count (number/volume) 5.0 10*3 1.8-7.8 Blood lymphocytes automated count (number/volume) 1.3 10*3 1.0-4.0 Blood monocytes automated count (number/volume) 0.6 10*3 0.0-1.0 Automated eosinophil count 0.5 10*3/uL 0.0-0.3 Automated blood basophil count (count/volume) 0.0 10*3/uL 0.0-0.1 Whole blood basic metabolic panel - 09/02/17 05:25 Serum or plasma sodium measurement (moles/volume) 141 mmol/L 135-145 Serum or plasma potassium measurement (moles/volume) 4.0 mmol/L 3.6-5.0 Serum or plasma chloride measurement (moles/volume) 111 mmol/L 98-107 Carbon dioxide 21 mmol/L 21-32 Serum or plasma anion gap determination (moles/volume) 9 mmol/L 5-14 Serum or plasma urea nitrogen measurement (mass/volume) 15 mg/dL 7-18 Serum or plasma creatinine measurement (mass/volume) 0.96 mg/dL 0.60-1.30 Serum or plasma urea nitrogen/creatinine mass ratio 16 NRG Serum or plasma creatinine measurement with calculation of estimated glomerular filtration rate > [facility] Serum or plasma glucose measurement (mass/volume) 128 mg/dL 70-105 Serum or plasma calcium measurement (mass/volume) 8.7 mg/dL 8.5-10.1 Bacterial blood culture - 09/02/17 16:10 QUANTITY OF GROWTH . [facility] Bacterial blood culture SEE COMMEN [facility] Bacterial blood culture - 09/02/17 16:13 Bacterial blood culture [facility] Automated blood complete blood count (hemogram) panel - 09/03/17 05:10 Blood leukocytes automated count (number/volume) 7.5 10*3/uL 4.3-11.0 Blood erythrocytes automated count (number/volume) 3.13 10*6/uL 4.35-5.85 Venous blood hemoglobin measurement (mass/volume) 9.3 g/dL 13.3-17.7 Blood hematocrit (volume fraction) 29 % 40-54 Automated erythrocyte mean corpuscular volume 92 [foz_us] 80-99 Automated erythrocyte mean corpuscular hemoglobin (mass per erythrocyte) 30 pg 25-34 Automated erythrocyte mean corpuscular hemoglobin concentration measurement ( mass/volume) 32 g/dL 32-36 Automated erythrocyte distribution width ratio 13.3 % 10.0-14.5 Automated blood platelet count (count/volume) 254 10*3/uL 130-400 Automated blood platelet mean volume measurement 10.9 [foz_us] 7.4-10.4 Whole blood basic metabolic panel - 09/03/17 05:10 Serum or plasma sodium measurement (moles/volume) 140 mmol/L 135-145 Serum or plasma potassium measurement (moles/volume) 3.8 mmol/L 3.6-5.0 Serum or plasma chloride measurement (moles/volume) 109 mmol/L 98-107 Carbon dioxide 21 mmol/L 21-32 Serum or plasma anion gap determination (moles/volume) 10 mmol/L 5-14 Serum or plasma urea nitrogen measurement (mass/volume) 11 mg/dL 7-18 Serum or plasma creatinine measurement (mass/volume) 0.93 mg/dL 0.60-1.30 Serum or plasma urea nitrogen/creatinine mass ratio 12 NRG Serum or plasma creatinine measurement with calculation of estimated glomerular filtration rate > NRG Serum or plasma glucose measurement (mass/volume) 95 mg/dL 70-105 Serum or plasma calcium measurement (mass/volume) 8.6 mg/dL 8.5-10.1 Automated blood complete blood count (hemogram) panel - 09/04/17 05:54 Blood leukocytes automated count (number/volume) 7.1 10*3/uL 4.3-11.0 Blood erythrocytes automated count (number/volume) 2.99 10*6/uL 4.35-5.85 Venous blood hemoglobin measurement (mass/volume) 8.9 g/dL 13.3-17.7 Blood hematocrit (volume fraction) 27 % 40-54 Automated erythrocyte mean corpuscular volume 91 [foz_us] 80-99 Automated erythrocyte mean corpuscular hemoglobin (mass per erythrocyte) 30 pg 25-34 Automated erythrocyte mean corpuscular hemoglobin concentration measurement ( mass/volume) 33 g/dL 32-36 Automated erythrocyte distribution width ratio 13.0 % 10.0-14.5 Automated blood platelet count (count/volume) 276 10*3/uL 130-400 Automated blood platelet mean volume measurement 10.6 [foz_us] 7.4-10.4 Whole blood basic metabolic panel - 09/04/17 05:54 Serum or plasma sodium measurement (moles/volume) 139 mmol/L 135-145 Serum or plasma potassium measurement (moles/volume) 4.0 mmol/L 3.6-5.0 Serum or plasma chloride measurement (moles/volume) 110 mmol/L 98-107 Carbon dioxide 21 mmol/L 21-32 Serum or plasma anion gap determination (moles/volume) 8 mmol/L 5-14 Serum or plasma urea nitrogen measurement (mass/volume) 12 mg/dL 7-18 Serum or plasma creatinine measurement (mass/volume) 0.97 mg/dL 0.60-1.30 Serum or plasma urea nitrogen/creatinine mass ratio 12 NRG Serum or plasma creatinine measurement with calculation of estimated glomerular filtration rate > NRG Serum or plasma glucose measurement (mass/volume) 104 mg/dL 70-105 Serum or plasma calcium measurement (mass/volume) 8.7 mg/dL 8.5-10.1 Whole blood basic metabolic panel - 09/05/17 06:28 Serum or plasma sodium measurement (moles/volume) 139 mmol/L 135-145 Serum or plasma potassium measurement (moles/volume) 3.9 mmol/L 3.6-5.0 Serum or plasma chloride measurement (moles/volume) 108 mmol/L 98-107 Carbon dioxide 22 mmol/L 21-32 Serum or plasma anion gap determination (moles/volume) 9 mmol/L 5-14 Serum or plasma urea nitrogen measurement (mass/volume) 15 mg/dL 7-18 Serum or plasma creatinine measurement (mass/volume) 0.96 mg/dL 0.60-1.30 Serum or plasma urea nitrogen/creatinine mass ratio 16 NRG Serum or plasma creatinine measurement with calculation of estimated glomerular filtration rate > NRG Serum or plasma glucose measurement (mass/volume) 100 mg/dL 70-105 Serum or plasma calcium measurement (mass/volume) 8.9 mg/dL 8.5-10.1 Encounters ACCT No. Visit Date/Time Discharge Status Pt. Type Provider Facility Loc./Unit Complaint [id number] 08/28/2017 12:05:00 09/05/2017 14:00:00 DIS Inpatient JAIDAISI Gudino MD [facility] 4TH ACUTE RENAL FAILURE RESPIRATORY DISTRESS [id number] 08/21/2017 19:05:00 08/22/2017 11:58:00 DIS Inpatient ISI SENA MD [facility] 4TH VOLUME DEPLETION;PEG TUBE DISLODGED [id number] 08/20/2017 02:27:00 08/20/2017 02:45:00 DIS Emergency TINA ASTORGA, MARC Sanchez [facility] ER PEG TUBE [id number] 08/19/2017 03:52:00 08/19/2017 05:20:00 DIS Emergency MILTON ASTORGA, MARISOL Maldonado [facility] ER PULLED OUT FEEDING TUBE CATHETER [id number] 08/18/2017 12:52:00 08/18/2017 23:59:59 CLS Outpatient LEIGHA ASTORGA, REBA Barker [facility] ENDO NON FUNCTIONING PEG TUBE [id number] 08/14/2017 23:50:00 08/17/2017 15:50:00 DIS Inpatient ISI SENA MD [facility] 4TH CONSTIPATION,UTI,SEPSIS, PEG TUBE,N/V,DELIRIUM [id number] 08/12/2017 18:14:00 08/12/2017 18:23:00 DIS Emergency REJI HAGER APRN [facility] ER CONFUSION [id number] 08/02/2017 13:30:00 08/10/2017 16:10:00 DIS Inpatient ISI SENA MD [facility] 4TH SEPSIS,UTI,HEMATURIS, CONFUSION/AGGITATION [id number] 07/25/2017 11:16:00 07/25/2017 23:59:59 CLS Preadmit ISI SENA MD [facility] RAD DYSPHAGIA [id number] 07/19/2017 11:35:00 07/19/2017 13:34:00 DIS Emergency REJI HAGER APRN [facility] ER ABD ISSUES [id number] 07/10/2017 09:56:00 07/18/2017 14:21:00 DIS Inpatient AMA MOON MD [facility] [address] STENOSIS;DYSPHAGIA [id number] 07/04/2017 12:20:00 07/04/2017 13:05:00 DIS Outpatient AMA MOON MD [facility] PREOP C4-C7 ACDF [id number] 12/13/2016 12:58:00 12/13/2016 23:59:59 CLS Outpatient ANDREW ASTORGA FACC, KEZIA JETT CCDS [facility] 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 [id number] 08/02/2016 15:57:00 08/02/2016 23:59:59 CLS Outpatient YENY FIELD DO [facility] RAD M54.2,M54.6 [id number] 03/15/2016 06:44:00 03/15/2016 09:00:00 DIS Outpatient MAGDIEL MARTINEZ MD [facility] SDC MELANA [id number] 03/11/2016 05:32:00 03/11/2016 12:26:00 DIS Outpatient MAGDIEL MARTINEZ MD [facility] PREOP MELANA [id number] 11/19/2015 07:49:00 11/19/2015 23:59:59 CLS Outpatient BAIKENTON, CHANCE L CLOUD AUTOMATION TESTER [facility] CARD CAD,HYPERTENSION [id number] 10/19/2015 11:54:00 10/19/2015 23:59:59 CLS Outpatient BAIKENTON, CHANCE L [employer]OUD [employer]OMATION TESTER [facility] RAD CAD,HTN,HLD [id number] 10/16/2015 10:47:00 10/16/2015 23:59:59 CLS Outpatient BAIMA, CHANCE L CLOUD AUTOMATION TESTER [facility] CARD CAD [id number] 08/25/2015 23:58:00 08/26/2015 01:01:00 DIS Emergency MILTON ASTORGA, MARISOL Maldonado [facility] ER BOTH EYELIDS BLEEDING( SURGERY ON 08-25-15) [id number] 07/13/2015 13:50:00 07/13/2015 23:59:59 CLS Outpatient AME RODRIGEZ MD [facility] RAD SPINAL STENOSIS OF LUMBOSACRAL SPINE [id number] 01/21/2015 05:57:00 01/24/2015 12:45:00 DIS Inpatient AME RODRIGEZ MD [facility] 4TH LEFT KNEE SEVERE OSTEOARTHRIS [id number] 01/14/2015 10:10:00 01/14/2015 23:59:59 CLS Outpatient AME RODRIGEZ MD [facility] PREOP LEFT KNEE SEVERE OSTEOARTHRITIS [id number] 09/09/2013 11:13:00 09/09/2013 23:59:59 CLS Outpatient DREW MARTINEZ MD [facility] RAD LT KNEE PAIN [id number] 06/18/2013 08:39:00 06/19/2013 09:30:00 DIS Outpatient KEZIA MORALES MD, FACC FACP CCDS [facility] CATH ANGINA [id number] 04/30/2013 13:55:00 05/01/2013 11:00:00 DIS Outpatient ANDREW ASTORGA FACC ALI FACP CCDS [facility] CATH CHEST PAIN DYPSENIA HYPERTENSION [id number] 10/25/2012 07:48:00 10/25/2012 23:59:59 CLS Outpatient KEZIA MORALES MD, FACC FACP CCDS [facility] RAD CHEST DISCOMFORT [id number] 10/18/2012 09:33:00 10/18/2012 23:59:59 CLS Outpatient ANDREW ASTORGA FACC ALI FACP CCDS [facility] CARD CHEST DISCOMFORT
[2017-09-18 14:55] VITALS: BP 141/68
== END 2017-09-18 14:55 ==
LOC: EDUNIT# 11:42 → ER 11:43
DX: T17.200A Unspecified foreign body in pharynx causing asphyxiation, initial encounter (principal); N39.0 Urinary tract infection, site not specified; I25.10 Atherosclerotic heart disease of native coronary artery without angina pectoris; E78.00 Pure hypercholesterolemia, unspecified; I10 Essential (primary) hypertension; F03.90 Unspecified dementia, unspecified severity, without behavioral disturbance, psychotic disturbance, mood disturbance, and anxiety; E03.9 Hypothyroidism, unspecified; Z87.19 Personal history of other diseases of the digestive system; Z79.82 Long term (current) use of aspirin; Z94.7 Corneal transplant status; Z96.652 Presence of left artificial knee joint
CPT/HCPCS: 36415; 71045; 80053; 81000; 83605; 85025; 85610; 85730; 87040; 87077; 87088; 87186; 94640; 96365

== ENCOUNTER 2017-09-26 16:08 | Emergency (ER) | payer MEDICARE, OTHER ==
[~2017-09-26] VITALS: Ht 182.9 cm; Wt 81.6 kg
[~2017-09-26 16:08] MED LIST changes: +AMOX-358 PEG
--- NOTE | 2017-09-26 16:20 | ED General ---
General Stated Complaint: PEG TUBE PULLED OUT Source of Information: Patient, EMS Exam Limitations: No Limitations History of Present Illness Date Seen by Provider: Sep 26, 2017 Time Seen by Provider: 16:08 Initial Comments Here by EMS with report of PEG tube malfunction. Patient is bedbound. The tip of the PEG tube came off. They did eventually send the tip over. The tube is sewn in place and otherwise secure. No other concerns. Timing/Duration: 1/2 Hour Severity: Mild Associated Systoms: No Nausea/Vomiting Allergies and Home Medications Allergies Coded Allergies: No Known Drug Allergies (Unverified , 10/25/12) Home Medications Acetaminophen 325 Mg Tablet, 650 MG PO Q4H PRN for TEMPATURE OR MILD PAIN, ( Reported) Amoxicillin/Potassium Clav 1 Each Tablet, 1 EACH PEG BID Crush and give via PEG tube. Prescribed by: REJI HAGER on 09/18/17 1351 Aspirin 81 Mg Tab.chew, 81 MG PEG DAILY, (Reported) Dorzolamide HCl/Timolol Maleat 10 Ml Drops, 1 DROP OU BID, (Reported) Famotidine 20 Mg Tablet, 20 MG PEG BID, (Reported) Glycerin/Propylene Glycol 30 Ml Drops, 1 DROP OU QID PRN for DRY EYES, (Reported ) Lactose-Reduced Food/Fiber 237 Ml Liquid, 237 ML PEG 5XD, (Reported) Levothyroxine Sodium 88 Mcg Tablet, 88 MCG PEG DAILY, (Reported) Lorazepam 1 Mg Tablet, 1 MG PEG Q4H PRN for AGITATION, (Reported) Loteprednol Etabonate 5 Gm Drops.gel, 1 DROP OD 1800, (Reported) Magnesium Hydroxide 400 Mg/5 Ml Oral.susp, 30 ML PEG DAILY PRN for CONSTIPATION- 7TH LINE, (Reported) Melatonin 3 Mg Tablet, 3 MG PO HS, (Reported) Metoprolol Tartrate 50 Mg Tablet, 50 MG PEG BID, (Reported) Tramadol HCl 50 Mg Tablet, 50 MG PO Q6H PRN for PAIN-MODERATE, (Reported) Ziprasidone HCl 20 Mg Capsule, 20 MG PO Q12H, (Reported) Patient Home Medication List Home Medication List Reviewed: Yes Review of Systems Constitutional: no symptoms reported Respiratory: no symptoms reported Cardiovascular: no symptoms reported Gastrointestinal: see HPI; No abdominal pain, No nausea, No vomiting Genitourinary: no symptoms reported Past Ajwbqfy-Spniee-Mtegnt Hx Past Med/Social Hx: Reviewed Nursing Past Med/Soc Hx Patient Social History Type Used: Cigarettes Former Smoker, Quit: Mar 11, 1989 2nd Hand Smoke Exposure: No Recent Hopitalizations: Yes Immunizations Up To Date Date of Pneumonia Vaccine: Nov 12, 2015 Date of Influenza Vaccine: Dec 06, 2015 Seasonal Allergies Seasonal Allergies: No Past Medical History Surgeries: Yes ([employer] TRANSPLANT, MASTOIDECTOMY, eyelid reduction, L TKR, neck , PEG tube) Gallbladder, Joint Replacement, Orthopedic Respiratory: No Cardiac: Yes (STENTS X2-LAST ONE COUPLE YEARS AGO) Coronary Artery Disease, High Cholesterol, Hypertension Neurological: Yes (dysphagia) Dementia Reproductive Disorders: No Sexually Transmitted Disease: No HIV/AIDS: No Genitourinary: Yes (joe cath since having sx on cervical spin for stenosis) UTI-Chronic Gastrointestinal: Yes (peg tube placement since having sx on cervical spine for stenosis) Chronic Constipation Musculoskeletal: Yes (spinal stenosis, ) Arthritis, Chronic Back Pain Endocrine: No Hypothyroidsim HEENT: Yes Glaucoma Loss of Vision: Bilateral Hearing Impairment: Denies Cancer: No Psychosocial: No Integumentary: No Blood Disorders: No Adverse Reaction/Blood Tranf: No Family Medical History Reviewed Nursing Family Hx LUNG CANCER G8 BROTHER Myocardial infarction 19 MOTHER Physical Exam Vital Signs Capillary Refill : Height, Weight, BMI Height: 5'10.00" Weight: 175lbs. 7.0oz. 79.539797tx; 22.6 BMI Method:Estimated General Appearance: No Apparent Distress, WD/WN Respiratory: Lungs Clear, Normal Breath Sounds Cardiovascular: Regular Rate, Rhythm, No Murmur Gastrointestinal: Non Tender, Soft, Other (PEG tube in place and sewn to the abdominal wall. PEG tube and has inadvertently come off. This was easily replaced.) Neurologic/Psychiatric: Alert Skin: Normal Color, Warm/Dry Progress/Results/Core Measures Suspected Sepsis SIRS Temperature: Pulse: Respiratory Rate: Blood Pressure / Mean: Results/Orders Vital Signs/I&O Capillary Refill : Progress Note : Progress Note Seen and evaluated. Tube and resecured to PEG tube. I did sew this in place. Using silk 3-0 suture material and wrapped around tube and secured end piece to PEG tube. Discharge back to senior care via EMS. Discharge instructions with patient. Departure Impression Primary Impression: PEG tube malfunction Disposition: 01 HOME, SELF-CARE Condition: Improved Departure-Patient Inst. Decision time for Depature: 16:20 Referrals: ISI SENA MD (PCP/Family) Primary Care Physician Patient Instructions: How to Care for Your PEG Tube Add. Discharge Instructions: Continue previous feeds and medications. Follow-up with Dr. Reddy or your doctor as needed. Return for other concerns as needed. EBONI ORZOCO MD Sep 26, 2017 16:20
[2017-09-26 16:26] VITALS: BP 139/89
== END 2017-09-26 16:25 | disposition home or self-care (01) ==
LOC: EDUNIT# 16:08 → ER 16:09
DX: K94.23 Gastrostomy malfunction (principal); I25.10 Atherosclerotic heart disease of native coronary artery without angina pectoris; E78.00 Pure hypercholesterolemia, unspecified; I10 Essential (primary) hypertension; F03.90 Unspecified dementia, unspecified severity, without behavioral disturbance, psychotic disturbance, mood disturbance, and anxiety; E03.9 Hypothyroidism, unspecified; Z87.19 Personal history of other diseases of the digestive system; Z79.82 Long term (current) use of aspirin; Z94.7 Corneal transplant status; Z96.651 Presence of right artificial knee joint; Z80.1 Family history of malignant neoplasm of trachea, bronchus and lung; Z95.5 Presence of coronary angioplasty implant and graft; Z87.440 Personal history of urinary (tract) infections
CPT/HCPCS: 99283

== ENCOUNTER 2017-11-19 12:12 | Emergency (ER) | payer MEDICARE, OTHER ==
[~2017-11-19] VITALS: Ht 182.9 cm; Wt 77.1 kg
[~2017-11-19 12:12] MED LIST changes: +ACET325T38 PEG; -ACET325T38 PO; +MELA3TAB PEG; -MELA3TAB PO; +TRAM50TA2 PEG; -TRAM50TA2 PO
--- OUTSIDE RECORDS SUMMARY | 2017-11-19 12:21 | XMS REPORT | Continuity of Care Document ---
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 06/19/2013 ANDREW FERREIRA, KEZIA FERREIRAP CCDS Ot 426.4 RT BUNDLE BRANCH BLOCK 06/19/2013 ANDREW ASTORGA FACC, KEZIA FACP CCDS Ot 585.3 CHRONIC KIDNEY DISEASE, STAGE III (MODER 06/19/2013 ANDREW ASTORGA FACC, KEZIA FACP CCDS Ot 786.59 CHEST PAIN NEC 06/19/2013 ANDREW ASTORGA FACC, [facility] CCD[facility] Ot V15.82 HISTORY OF TOBACCO USE 06/19/2013 ANDREW ASTORGA FACC, KEZIA FACP CCDS Ot V45.82 PERCUTANEOUS TRANSLUM CORON ANGIOPLASTY 06/19/2013 ANDREW ASTORGA FACC, KEZIA FACP CCDS Ot V58.63 LONG-TERM(CURRENT)USE OF ANTIPLATELET/AN 06/19/2013 ANDREW ASTORGA FACC, KEZIA [facility] CCD[facility] Ot V58.69 OTH MED,LT,CURRENT USE [...] OTHER SPECIFIED SURGICAL A 10/19/2015 CHANCE CARRENO LEAD DATA ENTRY OPERATOR Ot E78.4 OTHER HYPERLIPIDEMIA 10/19/2015 CHANCE CARRENO LEAD DATA ENTRY OPERATOR Ot I10 ESSENTIAL (PRIMARY) HYPERTENSION 10/19/2015 CHANCE CARRENO LEAD DATA ENTRY OPERATOR Ot I25.10 ATHSCL HEART DISEASE OF [place] CORONARY 10/19/2015 CHANCE CARRENO LEAD DATA ENTRY OPERATOR Ot I65.23 OCCLUSION AND STENOSIS OF BILATERAL [...] SPECIFIED SURGICAL A 10/19/2015 BAIMA, CHANCE L LEAD DATA ENTRY OPERATOR Ot E78.4 OTHER HYPERLIPIDEMIA 10/19/2015 BAIMA, CHANCE L LEAD DATA ENTRY OPERATOR Ot I10 ESSENTIAL (PRIMARY) HYPERTENSION 10/19/2015 FLAKOMA, CHANCE L LEAD DATA ENTRY OPERATOR Ot I25.10 ATHSCL HEART DISEASE OF [place] CORONARY 10/19/2015 BAIMA, CHANCE L LEAD DATA ENTRY OPERATOR Ot 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 10/19/2015 BAIMA, CHANCE L LEAD DATA ENTRY OPERATOR Ot I25.10 ATHSCL HEART DISEASE OF [place] CORONARY 10/19/2015 BAIMA, CHANCE L LEAD DATA ENTRY OPERATOR Ot E78.4 OTHER HYPERLIPIDEMIA 10/19/2015 BAIMA, CHANCE L LEAD DATA ENTRY OPERATOR Ot I10 ESSENTIAL (PRIMARY) HYPERTENSION 10/19/2015 BAIMA, CHANCE L LEAD DATA ENTRY OPERATOR Ot I25.10 ATHSCL HEART DISEASE OF [place] CORONARY 10/19/2015 BAIMA, CHANCE L LEAD DATA ENTRY OPERATOR Ot 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 10/20/2015 BAIMA, CHANCE L LEAD DATA ENTRY OPERATOR Ot I25.10 ATHSCL HEART DISEASE OF [place] CORONARY 10/21/2015 BAIMA, CHANCE L LEAD DATA ENTRY OPERATOR Ot E78.4 OTHER HYPERLIPIDEMIA 10/21/2015 BAIMA, CHANCE L LEAD DATA ENTRY OPERATOR Ot I10 ESSENTIAL (PRIMARY) HYPERTENSION 10/21/2015 BAIMA, CHANCE L LEAD DATA ENTRY OPERATOR Ot I25.10 ATHSCL HEART DISEASE OF [place] CORONARY 10/21/2015 BAIMA, CHANCE L LEAD DATA ENTRY OPERATOR Ot 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 10/23/2015 WAICHANCE Mary LEAD DATA ENTRY OPERATOR Ot E78.4 OTHER HYPERLIPIDEMIA 10/23/2015 FLAKOMA CHANCE L LEAD DATA ENTRY OPERATOR Ot I10 ESSENTIAL (PRIMARY) HYPERTENSION 10/23/2015 WAI CHANCE L LEAD DATA ENTRY OPERATOR Ot I25.10 ATHSCL HEART DISEASE OF [place] CORONARY 10/23/2015 CHANCE CARRENO LEAD DATA ENTRY OPERATOR Ot I65.23 OCCLUSION AND STENOSIS OF BILATERAL [...] OTHER SPECIFIED SURGICAL A 10/27/2015 CHANCE CARRENO LEAD DATA ENTRY OPERATOR Ot E78.4 OTHER HYPERLIPIDEMIA 10/27/2015 WAICHANCE Mary LEAD DATA ENTRY OPERATOR Ot I10 ESSENTIAL (PRIMARY) HYPERTENSION 10/27/2015 CHANCE CARRENO LEAD DATA ENTRY OPERATOR Ot I25.10 ATHSCL HEART DISEASE OF [place] CORONARY 10/27/2015 CHANCE CARRENO LEAD DATA ENTRY OPERATOR Ot 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 10/27/2015 FLAKOCHANCE FUNG LEAD DATA ENTRY OPERATOR Ot E78.4 OTHER HYPERLIPIDEMIA 10/27/2015 BAIMACHANCE L LEAD DATA ENTRY OPERATOR Ot I10 ESSENTIAL (PRIMARY) HYPERTENSION 10/27/2015 CHANCE CARRENO L LEAD DATA ENTRY OPERATOR Ot I25.10 ATHSCL HEART DISEASE OF [place] CORONARY 10/27/2015 CHANCE CARRENO LEAD DATA ENTRY OPERATOR Ot I65.23 OCCLUSION AND STENOSIS OF BILATERAL [...] SPECIFIED SURGICAL A 10/27/2015 WAI CHANCE Mary LEAD DATA ENTRY OPERATOR Ot E78.4 OTHER HYPERLIPIDEMIA 10/27/2015 WAICHANCE L LEAD DATA ENTRY OPERATOR Ot I10 ESSENTIAL (PRIMARY) HYPERTENSION 10/27/2015 WAI CHANCE L LEAD DATA ENTRY OPERATOR Ot I25.10 ATHSCL HEART DISEASE OF [place] CORONARY 10/27/2015 BAIMACHANCE L LEAD DATA ENTRY OPERATOR Ot 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 10/27/2015 BAIMA, CHANCE L LEAD DATA ENTRY OPERATOR Ot E78.4 OTHER HYPERLIPIDEMIA 10/27/2015 BAIMA, CHANCE L LEAD DATA ENTRY OPERATOR Ot I10 ESSENTIAL (PRIMARY) HYPERTENSION 10/27/2015 BAIMA, CHANCE L LEAD DATA ENTRY OPERATOR Ot I25.10 ATHSCL HEART DISEASE OF [place] CORONARY 10/27/2015 BAIMA CHANCE L LEAD DATA ENTRY OPERATOR Ot 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 11/06/2015 BAIMACHANCE L LEAD DATA ENTRY OPERATOR Ot E78.4 OTHER HYPERLIPIDEMIA 11/06/2015 BAIMA, CHANCE L LEAD DATA ENTRY OPERATOR Ot I10 ESSENTIAL (PRIMARY) HYPERTENSION 11/06/2015 BAIMA, CHANCE L LEAD DATA ENTRY OPERATOR Ot I25.10 ATHSCL HEART DISEASE OF [place] CORONARY 11/06/2015 BAIMA CHANCE L LEAD DATA ENTRY OPERATOR Ot 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 11/13/2015 BAIMA CHANCE L LEAD DATA ENTRY OPERATOR Ot E78.4 OTHER HYPERLIPIDEMIA 11/13/2015 BAIMA, CHANCE L LEAD DATA ENTRY OPERATOR Ot I10 ESSENTIAL (PRIMARY) HYPERTENSION 11/13/2015 BAIMA, CHANCE L LEAD DATA ENTRY OPERATOR Ot I25.10 ATHSCL HEART DISEASE OF [place] CORONARY 11/13/2015 BAIMAYARIELCHANCE L LEAD DATA ENTRY OPERATOR Ot I65.23 OCCLUSION AND STENOSIS OF BILATERAL [...] Z01.812 ENCOUNTER FOR PREPROCEDURAL LABORATORY E 11/19/2015 RIAN ASTORGA, AME Herbert Ot Z11.2 ENCOUNTER FOR SCREENING FOR OTHER BACTER 11/19/2015 RAIN ASTORGA, AME Herbert Ot M48.07 SPINAL STENOSIS, LUMBOSACRAL REGION 11/19/2015 RAIN ASTORGA, AME Herbert Ot Z48.89 ENCOUNTER FOR OTHER SPECIFIED SURGICAL A 11/19/2015 BAIMA, CHANCE L LEAD DATA ENTRY OPERATOR Ot E78.4 OTHER HYPERLIPIDEMIA 11/19/2015 BAIMA, CHANCE L LEAD DATA ENTRY OPERATOR Ot I10 ESSENTIAL (PRIMARY) HYPERTENSION 11/19/2015 BAIMA, CHANCE L LEAD DATA ENTRY OPERATOR Ot I25.10 ATHSCL HEART DISEASE OF [place] CORONARY 11/19/2015 BAIMA, CHANCE L LEAD DATA ENTRY OPERATOR Ot 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 11/19/2015 BAIMA, CHANCE L LEAD DATA ENTRY OPERATOR Ot E78.4 OTHER HYPERLIPIDEMIA 11/19/2015 BAIMA, CHANCE L LEAD DATA ENTRY OPERATOR Ot I10 ESSENTIAL (PRIMARY) HYPERTENSION 11/19/2015 BAIMA, CHANCE L LEAD DATA ENTRY OPERATOR Ot I25.10 ATHSCL HEART DISEASE OF [place] CORONARY 11/19/2015 BAIMA, CHANCE L LEAD DATA ENTRY OPERATOR Ot 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 11/20/2015 BAIMA, CHACNE L LEAD DATA ENTRY OPERATOR Ot E78.4 OTHER HYPERLIPIDEMIA 11/20/2015 BAIMA, CHANCE L LEAD DATA ENTRY OPERATOR Ot I10 ESSENTIAL (PRIMARY) HYPERTENSION 11/20/2015 BAIMA, CHANCE L LEAD DATA ENTRY OPERATOR Ot I25.10 ATHSCL HEART DISEASE OF [place] CORONARY 11/20/2015 BAIMA, CHANCE L LEAD DATA ENTRY OPERATOR Ot 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 11/23/2015 BAIMA, CHANCE L LEAD DATA ENTRY OPERATOR Ot E78.4 OTHER HYPERLIPIDEMIA 11/23/2015 BAIMA, CHANCE L LEAD DATA ENTRY OPERATOR Ot I10 ESSENTIAL (PRIMARY) HYPERTENSION 11/23/2015 BAIMA, CHANCE L LEAD DATA ENTRY OPERATOR Ot I25.10 ATHSCL HEART DISEASE OF [place] CORONARY 11/23/2015 BAIMA, CHANCE L LEAD DATA ENTRY OPERATOR Ot 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 12/11/2015 FLAKOCHANCE FUNG LEAD DATA ENTRY OPERATOR Ot E78.4 OTHER HYPERLIPIDEMIA 12/11/2015 CHANCE CARRENO LEAD DATA ENTRY OPERATOR Ot I10 ESSENTIAL (PRIMARY) HYPERTENSION 12/11/2015 CHANCE CARRENO LEAD DATA ENTRY OPERATOR Ot I25.10 ATHSCL HEART DISEASE OF [place] CORONARY 12/11/2015 CAHNCE CARRENO LEAD DATA ENTRY OPERATOR Ot I65.23 OCCLUSION AND STENOSIS OF BILATERAL [...] OTHER SPECIFIED SURGICAL A 03/15/2016 CHANCE CARRENO LEAD DATA ENTRY OPERATOR Ot E78.4 OTHER HYPERLIPIDEMIA 03/15/2016 BAIMA, CHANCE L LEAD DATA ENTRY OPERATOR Ot I10 ESSENTIAL (PRIMARY) HYPERTENSION 03/15/2016 BAIMA, CHANCE L LEAD DATA ENTRY OPERATOR Ot I25.10 ATHSCL HEART DISEASE OF [place] CORONARY 03/15/2016 BAIMA, CHANCE L LEAD DATA ENTRY OPERATOR Ot 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 03/15/2016 BAIMA, CHANCE L LEAD DATA ENTRY OPERATOR Ot E78.4 OTHER HYPERLIPIDEMIA 03/15/2016 BAIMA, CHANCE L LEAD DATA ENTRY OPERATOR Ot I10 ESSENTIAL (PRIMARY) HYPERTENSION 03/15/2016 BAIMA, CHANCE L LEAD DATA ENTRY OPERATOR Ot I25.10 ATHSCL HEART DISEASE OF [place] CORONARY 03/15/2016 BAIMA, CHANCE L LEAD DATA ENTRY OPERATOR Ot 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 03/15/2016 BAIMA, CHANCE L LEAD DATA ENTRY OPERATOR Ot E78.4 OTHER HYPERLIPIDEMIA 03/15/2016 BAIMA, CHANCE L LEAD DATA ENTRY OPERATOR Ot I10 ESSENTIAL (PRIMARY) HYPERTENSION 03/15/2016 BAIMA, CHANCE L LEAD DATA ENTRY OPERATOR Ot I25.10 ATHSCL HEART DISEASE OF [place] CORONARY 03/15/2016 BAIMA, CHANCE L LEAD DATA ENTRY OPERATOR Ot 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 03/15/2016 MAGDIEL MARTINEZ MD Ot K44.9 DIAPHRAGMATIC HERNIA WITHOUT OBSTRUCTION 03/15/2016 MICHELLE ASTORGA, MAGDIEL Berger Ot K92.1 MELENA 03/15/2016 MAGDIEL MARTINEZ MD Ot Z79.02 REGIONAL ENGAGEMENT CONSULTANT (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 03/15/2016 MAGDIEL MARTINEZ MD Ot Z79.82 [facility] (CURRENT) USE OF ASPIRIN 03/17/2016 MAGDIEL MARTINEZ MD Ot K44.9 DIAPHRAGMATIC HERNIA WITHOUT OBSTRUCTION 03/17/2016 MAGDIEL MARTINEZ MD Ot K92.1 MELENA 03/17/2016 MAGDIEL MARTINEZ MD Ot Z79.02 REGIONAL ENGAGEMENT CONSULTANT (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 03/17/2016 MAGDIEL MARTINEZ MD Ot Z79.82 [facility] (CURRENT) USE OF ASPIRIN 08/02/2016 ANDREW ASTORGA [...] AME Herbert Ot R53.83 OTHER FATIGUE 08/02/2016 RIAN ASTORGA, AME Herbert Ot Z01.810 ENCOUNTER FOR [...] SPECIFIED SURGICAL A 08/02/2016 BAIMA, CHANCE L LEAD DATA ENTRY OPERATOR Ot E78.4 OTHER HYPERLIPIDEMIA 08/02/2016 BAIMA, CHANCE L LEAD DATA ENTRY OPERATOR Ot I10 ESSENTIAL (PRIMARY) HYPERTENSION 08/02/2016 BAIMA, CHANCE L LEAD DATA ENTRY OPERATOR Ot I25.10 ATHSCL HEART DISEASE OF [place] CORONARY 08/02/2016 BAIMA, CHANCE L LEAD DATA ENTRY OPERATOR Ot 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 08/02/2016 BAIMA, CHANCE L LEAD DATA ENTRY OPERATOR Ot E78.4 OTHER HYPERLIPIDEMIA 08/02/2016 BAIMA, CHANCE L LEAD DATA ENTRY OPERATOR Ot I10 ESSENTIAL (PRIMARY) HYPERTENSION 08/02/2016 BAIMA, CHANCE L LEAD DATA ENTRY OPERATOR Ot I25.10 ATHSCL HEART DISEASE OF [place] CORONARY 08/02/2016 BAIMA, CHANCE L LEAD DATA ENTRY OPERATOR Ot I65.23 OCCLUSION AND STENOSIS OF BILATERAL LVOE 08/02/2016 BAIMA, CHANCE L LEAD DATA ENTRY OPERATOR Ot E78.4 OTHER HYPERLIPIDEMIA 08/02/2016 BAIMA, CHANCE L LEAD DATA ENTRY OPERATOR Ot I10 ESSENTIAL (PRIMARY) HYPERTENSION 08/02/2016 BAIMA, CHANCE L LEAD DATA ENTRY OPERATOR Ot I25.10 ATHSCL HEART DISEASE OF [place] CORONARY 08/02/2016 WAI CHANCE L LEAD DATA ENTRY OPERATOR Ot I65.23 OCCLUSION AND STENOSIS OF BILATERAL [...] CCDS Ot I25.10 ATHSCL HEART DISEASE OF [place] CORONARY 12/14/2016 ANDREW ASTORGA FACC, KEZIA FACP CCDS Ot E78.4 OTHER HYPERLIPIDEMIA 12/14/2016 ANDREW ASTORGA FACC, ALI FACP CCDS Ot I12.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 12/14/2016 ANDREW ASTORGA FACC, ALI FACP CCDS Ot I25.10 ATHSCL HEART DISEASE OF [place] CORONARY 12/14/2016 ANDREW ASTORGA FACC, KEZIA FACP CCDS Ot 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 12/14/2016 ANDREW ASTORGA FACC, ALI FACP CCDS Ot N18.3 CHRONIC KIDNEY DISEASE, STAGE 3 (MODERAT 01/03/2017 ANDREW ASTORGA FACC, ALI FACP CCDS Ot E78.4 OTHER HYPERLIPIDEMIA 01/03/2017 ANDREW ASTOGRA FACC, ALI FACP CCDS Ot I12.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 01/03/2017 ANDREW ASTORGA FACC, ALI FACP CCDS Ot I25.10 ATHSCL HEART DISEASE OF [place] CORONARY 01/03/2017 ANDREW ASTORGA FACC, ALI FACP [...] CCDS Ot I25.10 ATHSCL HEART DISEASE OF [place] CORONARY 01/10/2017 ANDREW ASTORGA FACC, ALI FACP [...] CCDS Ot I25.10 ATHSCL HEART DISEASE OF [place] CORONARY 06/21/2017 ANDREW ASTORGA FACC, ALI FACP [...] CCDS Ot I25.10 ATHSCL HEART DISEASE OF [place] CORONARY 07/04/2017 ANDREW ASTORGA FACC, ALI FACP [...] CCDS Ot I25.10 ATHSCL HEART DISEASE OF [place] CORONARY 07/10/2017 ANDREW ASTORGA FACC, ALI FACP [...] MD Ot I25.10 ATHSCL HEART DISEASE OF [place] CORONARY 07/14/2017 AMA MOON MD Ot M19.91 [...] MD Ot I25.10 ATHSCL HEART DISEASE OF [place] CORONARY 07/17/2017 AMA MOON MD Ot M19.91 [...] OF LEFT ARTIFICIAL KNEE JOINT 07/17/2017 AMA MONO MD Ot E03.9 HYPOTHYROIDISM, UNSPECIFIED 07/17/2017 AMA MOON MD Ot E78.5 HYPERLIPIDEMIA, UNSPECIFIED 07/17/2017 AMA MOON MD Ot I10 ESSENTIAL (PRIMARY) HYPERTENSION 07/17/2017 AMA MOON MD Ot I25.10 ATHSCL HEART DISEASE OF [place] CORONARY 07/17/2017 AMA MOON MD Ot M19.91 [...] MD, Ot I25.10 ATHSCL HEART DISEASE OF [place] CORONARY 07/17/2017 AMA MOON MD Ot M19.91 [...] MD Ot I25.10 ATHSCL HEART DISEASE OF [place] CORONARY 07/18/2017 AMA MOON MD Ot M19.91 [...] PRESENCE OF CORONARY ANGIOPLASTY IMPLANT 07/18/2017 AMA OMON MD Ot Z96.652 PRESENCE OF LEFT ARTIFICIAL KNEE JOINT 07/18/2017 AMA MOON MD Ot E03.9 HYPOTHYROIDISM, UNSPECIFIED 07/18/2017 AMA MOON MD Ot E78.5 HYPERLIPIDEMIA, UNSPECIFIED 07/18/2017 AMA MOON MD Ot F15.93 OTHER STIMULANT USE, UNSPECIFIED WITH [place] 07/18/2017 AMA MOON MD Ot I10 ESSENTIAL (PRIMARY) HYPERTENSION 07/18/2017 AMA MOON MD Ot I25.10 ATHSCL HEART DISEASE OF [place] CORONARY 07/18/2017 AMA MOON MD Ot J39.2 [...] SPECIFIED SURGICAL A 07/19/2017 BAIMA, CHANCE L LEAD DATA ENTRY OPERATOR Ot E78.4 OTHER HYPERLIPIDEMIA 07/19/2017 BAIMA, CHANCE L LEAD DATA ENTRY OPERATOR Ot I10 ESSENTIAL (PRIMARY) HYPERTENSION 07/19/2017 BAIMA, CHANCE L LEAD DATA ENTRY OPERATOR Ot I25.10 ATHSCL HEART DISEASE OF [place] CORONARY 07/19/2017 BAIMA, CHANCE L LEAD DATA ENTRY OPERATOR Ot 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 07/19/2017 BAIMA, CHANCE L LEAD DATA ENTRY OPERATOR Ot E78.4 OTHER HYPERLIPIDEMIA 07/19/2017 BAIMA, CHANCE L LEAD DATA ENTRY OPERATOR Ot I10 ESSENTIAL (PRIMARY) HYPERTENSION 07/19/2017 BAIMA, CHANCE L LEAD DATA ENTRY OPERATOR Ot I25.10 ATHSCL HEART DISEASE OF [place] CORONARY 07/19/2017 BAIMA, CHANCE L LEAD DATA ENTRY OPERATOR Ot 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 07/19/2017 BAIMA, CHANCE L LEAD DATA ENTRY OPERATOR Ot E78.4 OTHER HYPERLIPIDEMIA 07/19/2017 BAIMA, CHANCE L LEAD DATA ENTRY OPERATOR Ot I10 ESSENTIAL (PRIMARY) HYPERTENSION 07/19/2017 BAIMA, CHANCE L LEAD DATA ENTRY OPERATOR Ot I25.10 ATHSCL HEART DISEASE OF [place] CORONARY 07/19/2017 BAIMA, CHANCE L LEAD DATA ENTRY OPERATOR Ot I65.23 OCCLUSION AND STENOSIS OF BILATERAL [...] CCDS Ot I25.10 ATHSCL HEART DISEASE OF [place] CORONARY 07/19/2017 ANDREW ASTORGA FACC, ALI FACP CCDS Ot 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 07/19/2017 ANDREW ASTORGA FACC, ALI FACP CCDS Ot N18.3 CHRONIC KIDNEY DISEASE, STAGE 3 (MODERAT 07/19/2017 REJI HAGER APRN Ot E03.9 HYPOTHYROIDISM, UNSPECIFIED 07/19/2017 REJI HAGER APRN Ot I10 ESSENTIAL (PRIMARY) HYPERTENSION 07/19/2017 REJI HAGER APRN Ot 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 07/19/2017 REJI HAGER APRN Ot Z79.82 [facility] (CURRENT) USE OF ASPIRIN 07/19/2017 REJI HAGER APRN Ot Z80.0 FAMILY HISTORY OF MALIGNANT NEOPLASM OF 07/19/2017 REJI HAGER APRN Ot Z82.49 FAMILY HX OF ISCHEM HEART DIS AND OTH DI 07/19/2017 REJI HAGER APRN Ot Z87.19 PERSONAL HISTORY OF OTHER DISEASES OF TH 07/19/2017 REJI HAGER APRN Ot Z87.891 PERSONAL HISTORY OF NICOTINE DEPENDENCE 07/19/2017 REJI HAGRE APRN Ot 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 07/19/2017 [...] MALFUNCTION 07/24/2017 REJI HAGER APRN Ot Z79.82 [facility] (CURRENT) USE OF ASPIRIN 07/24/2017 REJI HAGER [...] MD, Ot I25.10 ATHSCL HEART DISEASE OF [place] CORONARY 08/04/2017 ISI SENA MD Ot M19.91 [...] MD, Ot I25.10 ATHSCL HEART DISEASE OF [place] CORONARY 08/08/2017 ISI SENA MD, Ot M19.91 [...] MD, Ot I25.10 ATHSCL HEART DISEASE OF [place] CORONARY 08/09/2017 ISI SENA MD, Ot M19.91 [...] MD, Ot I25.10 ATHSCL HEART DISEASE OF [place] CORONARY 08/09/2017 ISI SENA MD, Ot M19.91 [...] MD, Ot I25.10 ATHSCL HEART DISEASE OF [place] CORONARY 08/09/2017 ISI SENA MD, Ot M19.91 [...] MD, Ot I25.10 ATHSCL HEART DISEASE OF [place] CORONARY 08/10/2017 ISI SENA MD, Ot M19.91 [...] MD, Ot I25.10 ATHSCL HEART DISEASE OF [place] CORONARY 08/10/2017 ISI SENA MD, Ot M19.91 [...] APRN Ot I25.10 ATHSCL HEART DISEASE OF [place] CORONARY 08/12/2017 REJI HAGER APRN Ot M48.02 SPINAL STENOSIS, CERVICAL REGION 08/12/2017 REJI HAGER APRN Ot T85.528A DISPLACEMENT OF GASTROINTESTINAL PROSTH 08/12/2017 REJI HAGER APRN Ot Z79.82 REGIONAL ENGAGEMENT CONSULTANT (CURRENT) USE OF ASPIRIN 08/14/2017 REJI HAGER APRN Ot E03.9 HYPOTHYROIDISM, UNSPECIFIED 08/14/2017 REJI HAGER APRN Ot E78.00 PURE HYPERCHOLESTEROLEMIA, UNSPECIFIED 08/14/2017 REJI HAGER APRN Ot I10 ESSENTIAL (PRIMARY) HYPERTENSION 08/14/2017 REJI HAGER APRN Ot I25.10 ATHSCL HEART DISEASE OF [place] CORONARY 08/14/2017 REJI HAGER APRN Ot M48.02 SPINAL STENOSIS, CERVICAL REGION 08/14/2017 REJI HAGER APRN Ot T85.528A DISPLACEMENT OF GASTROINTESTINAL PROSTH 08/14/2017 REJI HAGER APRN Ot Z79.82 REGIONAL ENGAGEMENT CONSULTANT (CURRENT) USE OF ASPIRIN 08/17/2017 ISI SENA [...] MD Ot I25.10 ATHSCL HEART DISEASE OF [place] CORONARY 08/19/2017 MARISOL ROSE MD Ot T82.42XA DISPLACEMENT OF VASCULAR DIALYSIS CATHET 08/19/2017 MARISOL ROSE MD Ot Z79.82 [facility] (CURRENT) USE OF ASPIRIN 08/19/2017 MARISOL ROSE [...] MD Ot I25.10 ATHSCL HEART DISEASE OF [place] CORONARY 08/20/2017 MARC WILDER MD Ot 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 08/20/2017 MARC WILDER MD Ot Z79.82 [facility] (CURRENT) USE OF ASPIRIN 08/20/2017 MARC WILDER [...] MD Ot I25.10 ATHSCL HEART DISEASE OF [place] CORONARY 08/21/2017 MARISOL ROSE MD Ot T82.42XA DISPLACEMENT OF VASCULAR DIALYSIS CATHET 08/21/2017 MARISOL ROSE MD Ot Z79.82 [facility] (CURRENT) USE OF ASPIRIN 08/21/2017 MARISOL ROSE [...] MD Ot I25.10 ATHSCL HEART DISEASE OF [place] CORONARY 08/22/2017 MARC WILDER MD Ot 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 08/22/2017 MARC WILDER MD Ot Z79.82 REGIONAL ENGAGEMENT CONSULTANT (CURRENT) USE OF ASPIRIN 08/22/2017 MARC WILDER MD Ot Z87.891 PERSONAL HISTORY OF NICOTINE DEPENDENCE 08/22/2017 MARC WILDER MD Ot Z96.652 PRESENCE OF LEFT ARTIFICIAL KNEE JOINT 08/22/2017 ISI SENA MD Ot E86.0 DEHYDRATION 08/22/2017 ISI SENA MD, Ot I10 ESSENTIAL (PRIMARY) HYPERTENSION 08/22/2017 ISI SENA MD, Ot I25.10 ATHSCL HEART DISEASE OF [place] CORONARY 08/22/2017 ISI SENA MD, Ot 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 08/22/2017 ISI SENA MD, Ot R13.10 DYSPHAGIA, UNSPECIFIED 08/22/2017 ISI SENA MD, Ot Z79.82 REGIONAL ENGAGEMENT CONSULTANT (CURRENT) USE OF ASPIRIN 08/22/2017 ISI SENA MD, Ot Z79.899 OTHER [facility] (CURRENT) DRUG THERAPY 08/22/2017 ISI SENA MD Ot Z95.5 PRESENCE OF CORONARY ANGIOPLASTY IMPLANT 08/22/2017 LEIGHA ASTORGA, REBA Barker Ot 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 08/22/2017 ISI SENA MD, Ot E86.0 DEHYDRATION 08/22/2017 ISI SENA MD, Ot I10 ESSENTIAL (PRIMARY) HYPERTENSION 08/22/2017 ISI SENA MD, Ot I25.10 ATHSCL HEART DISEASE OF [place] CORONARY 08/22/2017 ISI SENA MD, Ot 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 08/22/2017 ISI SENA MD Ot R13.10 DYSPHAGIA, UNSPECIFIED 08/22/2017 ISI SENA MD, Ot Z79.82 [facility] (CURRENT) USE OF ASPIRIN 08/22/2017 ISI SENA MD, Ot 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 08/22/2017 ISI SENA MD, Ot Z95.5 PRESENCE OF CORONARY ANGIOPLASTY IMPLANT 08/22/2017 ISI SENA MD Ot E86.0 DEHYDRATION 08/22/2017 ISI SENA MD Ot I10 ESSENTIAL (PRIMARY) HYPERTENSION 08/22/2017 ISI SENA MD Ot I25.10 ATHSCL HEART DISEASE OF [place] CORONARY 08/22/2017 IIS SENA MD Ot 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 08/22/2017 ISI SENA MD, Ot R13.10 DYSPHAGIA, UNSPECIFIED 08/22/2017 ISI SENA MD, Ot Z79.82 [facility] (CURRENT) USE OF ASPIRIN 08/22/2017 ISI SENA MD, Ot 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 08/22/2017 ISI SENA MD, Ot Z95.5 PRESENCE OF CORONARY ANGIOPLASTY IMPLANT 08/22/2017 LEIGHA ASTORGA, REBA Barker Ot 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 08/25/2017 ISI SENA MD, Ot E86.0 DEHYDRATION 08/25/2017 ISI SENA MD, Ot I10 ESSENTIAL (PRIMARY) HYPERTENSION 08/25/2017 ISI SENA MD, Ot I25.10 ATHSCL HEART DISEASE OF [place] CORONARY 08/25/2017 ISI SENA MD, Ot 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 08/25/2017 ISI SENA MD Ot R13.10 DYSPHAGIA, UNSPECIFIED 08/25/2017 ISI SENA MD, Ot Z79.82 [facility] (CURRENT) USE OF ASPIRIN 08/25/2017 ISI SENA MD, Ot 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 08/25/2017 ISI SENA MD, Ot Z95.5 PRESENCE OF CORONARY ANGIOPLASTY IMPLANT 08/31/2017 ISI SENA MD Ot E03.9 HYPOTHYROIDISM, UNSPECIFIED 08/31/2017 ISI SENA MD Ot E78.00 PURE HYPERCHOLESTEROLEMIA, UNSPECIFIED 08/31/2017 JAIDAISI ANTHONY MD, Ot E86.0 DEHYDRATION 08/31/2017 ISI SENA MD, Ot F03.90 UNSPECIFIED DEMENTIA WITHOUT BEHAVIORAL 08/31/2017 ISI SENA MD, Ot H40.9 UNSPECIFIED GLAUCOMA 08/31/2017 ISI SENA MD, Ot I10 ESSENTIAL (PRIMARY) HYPERTENSION 08/31/2017 ISI SENA MD Ot I25.10 ATHSCL HEART DISEASE OF [place] CORONARY 08/31/2017 ISI SENA MD, Ot J69.0 PNEUMONITIS DUE TO INHALATION OF FOOD AN 08/31/2017 ISI SENA MD, Ot K59.09 OTHER CONSTIPATION 08/31/2017 ISI SENA MD, Ot M19.91 PRIMARY OSTEOARTHRITIS, UNSPECIFIED SITE 08/31/2017 ISI SENA MD, Ot M48.00 SPINAL STENOSIS, SITE UNSPECIFIED 08/31/2017 ISI SENA MD, Ot N19 UNSPECIFIED KIDNEY FAILURE 08/31/2017 ISI SENA MD Ot R06.03 ACUTE RESPIRATORY DISTRESS 08/31/2017 ISI SENA MD, Ot R13.10 DYSPHAGIA, UNSPECIFIED 08/31/2017 ISI SENA MD, Ot R64 CACHEXIA 08/31/2017 ISI SENA MD, [...] LEFT ARTIFICIAL KNEE JOINT 09/05/2017 ISI SENA MD, Ot A41.81 SEPSIS DUE TO ENTEROCOCCUS 09/05/2017 ISI SENA MD Ot D63.8 ANEMIA IN OTHER CHRONIC DISEASES CLASSIF 09/05/2017 JAIDA MD, ISI J Ot E03.9 HYPOTHYROIDISM, UNSPECIFIED 09/05/2017 ISI SENA MD, Ot E78.00 PURE HYPERCHOLESTEROLEMIA, UNSPECIFIED 09/05/2017 ISI SENA MD Ot E86.0 DEHYDRATION 09/05/2017 ISI SENA MD, Ot F03.90 UNSPECIFIED DEMENTIA WITHOUT BEHAVIORAL 09/05/2017 ISI SENA MD, Ot H40.9 UNSPECIFIED GLAUCOMA 09/05/2017 ISI SENA MD, Ot I10 ESSENTIAL (PRIMARY) HYPERTENSION 09/05/2017 ISI SENA MD, Ot I25.10 ATHSCL HEART DISEASE OF [place] CORONARY 09/05/2017 ISI SENA MD, Ot J69.0 PNEUMONITIS DUE TO INHALATION OF FOOD AN 09/05/2017 ISI SENA MD, Ot K59.09 OTHER CONSTIPATION 09/05/2017 ISI SENA MD, Ot M19.91 PRIMARY OSTEOARTHRITIS, UNSPECIFIED SITE 09/05/2017 ISI SENA MD, Ot M48.00 SPINAL STENOSIS, SITE UNSPECIFIED 09/05/2017 ISI SENA MD, Ot N19 UNSPECIFIED KIDNEY FAILURE 09/05/2017 ISI SENA MD, Ot N39.0 URINARY TRACT INFECTION, SITE NOT SPECIF 09/05/2017 ISI SENA MD, Ot R06.03 ACUTE RESPIRATORY DISTRESS 09/05/2017 ISI [...] Z96.652 PRESENCE OF LEFT ARTIFICIAL KNEE JOINT 09/20/2017 REJI HAGER APRN Ot E03.9 HYPOTHYROIDISM, UNSPECIFIED 09/20/2017 REJI HAGER APRN Ot E78.00 PURE HYPERCHOLESTEROLEMIA, UNSPECIFIED 09/20/2017 REJI HAGER APRN Ot F03.90 UNSPECIFIED DEMENTIA WITHOUT BEHAVIORAL 09/20/2017 REJI HAGER APRN Ot I10 ESSENTIAL (PRIMARY) HYPERTENSION 09/20/2017 REJI HAGER APRN Ot I25.10 ATHSCL HEART DISEASE OF [place] CORONARY 09/20/2017 REJI HAGER APRN Ot N39.0 URINARY TRACT INFECTION, SITE NOT SPECIF 09/20/2017 REJI HAGER APRN Ot R05 COUGH 09/20/2017 REJI HAGER APRN Ot T17.200A UNSP FOREIGN BODY IN PHARYNX CAUSING ASP 09/20/2017 REJI HAGER APRN Ot Z79.82 [facility] (CURRENT) USE OF ASPIRIN 09/20/2017 REJI HAGER APRN Ot Z87.19 PERSONAL HISTORY OF OTHER DISEASES OF 09/20/2017 REJI HAGER APRN Ot 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1 FAMILY HISTORY OF MALIG NEOPLASM OF [place] 09/28/2017 EBONI OROZCO MD Ot Z87.19 PERSONAL HISTORY OF OTHER DISEASES OF 09/28/2017 EBONI OROZCO MD Ot Z87.440 PERSONAL HISTORY OF URINARY (TRACT) INFE 09/28/2017 EBONI OROZCO MD, Ot 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 09/28/2017 EBONI OROZCO MD, Ot Z95.5 PRESENCE OF CORONARY ANGIOPLASTY IMPLANT 09/28/2017 EBONI OROZCO MD Ot Z96.651 PRESENCE OF RIGHT ARTIFICIAL KNEE JOINT Procedures Code Description Performed By Performed On [id number] REPLACE OF L KNEE JT WITH SYNTH SUB, ANGE 01/21/2015 [id number] FUSION 2-6 C JT W INTBD FUS DEV, ANT LATA 07/10/2017 [id number] INSERTION OF FEEDING DEVICE INTO STOMACH 07/17/2017 [id number] INSPECTION OF LARYNX, ENDO 08/10/2017 Results Test [...] - 12:00 MRSA SCREEN RESULT MRSA ISOLATED [facility] Complete blood count (CBC) with [...] culture - 08/02/17 12:46 Bacterial urine culture [id number] NRG COLONY COUNT . NRG FTX;REPORTABLE 40,000 [...] - 08/14/17 22:25 Bacterial blood culture NG NR Bacterial blood culture - 08/14/17 22:30 Bacterial blood culture NG NR Complete urinalysis with reflex to culture - [...] OF GROWTH Isolated NRG Bacterial blood culture [id number] NR FREE TEXT ENTRY [address] SENA 08/29/17 16:20 NR FREE TEXT ENTRY 3 AND TO KATHERINE SAINI 08/29/17 16:[address] [facility] Bacterial susceptibility panel - 08/28/17 11:00 Gentamicin [...] OF GROWTH Isolated NRG Bacterial blood culture [id number] NRG Complete urinalysis with reflex to culture [...] - 09/02/17 16:10 QUANTITY OF GROWTH . [facility] Bacterial blood culture SEE COMMEN [facility] Bacterial blood culture - 09/02/17 16:13 Bacterial blood culture NG [facility] Automated blood complete blood count [...] plasma calcium measurement (mass/volume) 8.9 mg/dL 8.5-10.1 Complete blood count (CBC) with automated white blood cell (WBC) differential - 09/18/17 12:30 Blood leukocytes automated count (number/volume) 8.4 10*3/uL 4.3-11.0 Blood erythrocytes automated count (number/volume) 3.66 10*6/uL 4.35-5.85 Venous blood hemoglobin measurement (mass/volume) 10.9 g/dL 13.3-17.7 Blood hematocrit (volume fraction) 33 % 40-54 Automated erythrocyte mean corpuscular volume 89 [foz_us] 80-99 Automated erythrocyte mean corpuscular hemoglobin (mass per erythrocyte) 30 pg 25-34 Automated erythrocyte mean corpuscular hemoglobin concentration measurement ( mass/volume) 33 g/dL 32-36 Automated erythrocyte distribution width ratio 13.9 % 10.0-14.5 Automated blood platelet count (count/volume) 413 10*3/uL 130-400 Automated blood platelet mean volume measurement 11.1 [foz_us] 7.4-10.4 Automated blood neutrophils/100 leukocytes 74 % 42-75 Automated blood lymphocytes/100 leukocytes 13 % 12-44 Blood monocytes/100 leukocytes 9 % 0-12 Automated blood eosinophils/100 leukocytes 4 % 0-10 Automated blood basophils/100 leukocytes 0 % 0-10 Blood neutrophils automated count (number/volume) 6.2 10*3 1.8-7.8 Blood lymphocytes automated count (number/volume) 1.1 10*3 1.0-4.0 Blood monocytes automated count (number/volume) 0.7 10*3 0.0-1.0 Automated eosinophil count 0.3 10*3/uL 0.0-0.3 Automated blood basophil count (count/volume) 0.0 10*3/uL 0.0-0.1 Complete urinalysis with reflex to culture - 09/18/17 12:30 Urine color determination YELLOW NRG Urine clarity determination VERY CLOUDY NRG Urine pH measurement by test strip 6 5-9 Specific gravity of urine by test [...] count by microscopy (number/high power field ) TNTC NRG Bacteria detection in urine sediment by light microscopy LARGE NRG Squamous epithelial cells detection in urine sediment by light microscopy NONE NRG Crystals detection in urine sediment by light microscopy NONE NRG Casts detection in urine sediment by light microscopy NONE NRG Mucus detection in urine sediment by light microscopy NEGATIVE NRG Complete urinalysis with reflex to culture YES NRG PT panel in platelet poor plasma by coagulation assay - 09/18/17 12:30 Prothrombin time (PT) in platelet poor plasma by coagulation assay 13.7 s 12.2-14.7 INR in platelet poor plasma or blood by coagulation assay 1.0 0.8-1.4 Activated partial thromboplastin time (aPTT) in platelet poor plasma bycoagulation assay - 09/18/17 12:30 Activated partial thromboplastin time (aPTT) in platelet poor plasma bycoagulation assay 33 s 24-35 Blood lactic acid measurement (moles/volume) - 09/18/17 12:30 Blood lactic acid measurement (moles/volume) 1.19 mmol/L 0.50-2.00 Comprehensive metabolic panel - 09/18/17 12:30 Serum or plasma sodium measurement (moles/volume) 131 mmol/L 135-145 Serum or plasma potassium measurement (moles/volume) 4.5 mmol/L 3.6-5.0 Serum or plasma chloride measurement (moles/volume) 97 mmol/L 98-107 Carbon dioxide 25 mmol/L 21-32 Serum or plasma anion gap determination (moles/volume) 9 mmol/L 5-14 Serum or plasma urea nitrogen measurement (mass/volume) 36 mg/dL 7-18 Serum or plasma creatinine measurement (mass/volume) 1.09 mg/dL 0.60-1.30 Serum or plasma urea nitrogen/creatinine mass ratio 33 NRG Serum or plasma creatinine measurement with calculation of estimated glomerular filtration rate > NRG Serum or plasma glucose measurement (mass/volume) 102 mg/dL 70-105 Serum or plasma calcium measurement (mass/volume) 9.6 mg/dL 8.5-10.1 Serum or plasma total bilirubin measurement (mass/volume) 0.5 mg/dL 0.1-1.0 Serum or plasma alkaline phosphatase measurement (enzymatic activity/volume) 89 U/L 40-136 Serum or plasma aspartate aminotransferase measurement (enzymatic activity/ volume) 32 U/L 5-34 Serum or plasma alanine aminotransferase measurement (enzymatic activity/volume ) 38 U/L 0-55 Serum or plasma protein measurement (mass/volume) 7.5 g/dL 6.4-8.2 Serum or plasma albumin measurement (mass/volume) 3.2 g/dL 3.2-4.5 Bacterial urine culture - 09/18/17 12:30 Bacterial urine culture SEE COMMEN NRG COLONY COUNT . NRG FTX;REPORTABLE REPORT PRINTED AT 1205, 09-20-17 NR FREE TEXT ENTRY 2 SUSCEPTIBILITY PRINTED AT 0805, 09-21-17 NR FREE TEXT ENTRY 3 VRE NRG Bacterial blood culture - 09/18/17 12:30 [facility] - 09/18/17 12:30 Oxacillin susceptibility test by minimum inhibitory concentration R NRG Trimethoprim/sulfamethoxazole susceptibility test by minimum inhibitoryconcentration S NRG Vancomycin susceptibility test by minimum inhibitory concentration 1 NRG Levofloxacin susceptibility test by minimum inhibitory concentration > NRG Rifampin susceptibility test by minimum inhibitory concentration <= NRG Cefazolin susceptibility test by minimum inhibitory concentration > NRG Nitrofurantoin susceptibility test by minimum inhibitory concentration <= NRG Penicillin G susceptibility test by minimum inhibitory concentration > NRG RML Sensitivity Panel - 09/18/17 12:30 Vancomycin susceptibility test by minimum inhibitory concentration > NRG Levofloxacin susceptibility test by minimum inhibitory concentration > NRG Ampicillin susceptibility test by minimum inhibitory concentration 2 NRG Nitrofurantoin susceptibility test by minimum inhibitory concentration <= NRG Linezolid susceptibility test by minimum inhibitory concentration 2 NRG Daptomycin susc DEV 2 NRG Bacterial blood culture - 09/18/17 12:41 Bacterial blood culture NG NRG Encounters ACCT No. Visit Date/Time Discharge Status Pt. Type Provider Facility Loc./Unit Complaint [id number] 09/26/2017 16:09:00 09/26/2017 16:25:00 DIS Outpatient PAM ASTORGA, EBONI Berger [facility] ER PEG TUBE PULLED APART [id number] 09/18/2017 11:43:00 09/18/2017 14:55:00 DIS Outpatient REJI HAGER [employer]MER [facility] ER LABORED BREATHING [id number] 08/28/2017 12:05:00 09/05/2017 14:00:00 DIS Outpatient ISI SENA MD [facility] 4TH ACUTE RENAL FAILURE RESPIRATORY DISTRESS [id number] 08/21/2017 19:05:00 08/22/2017 11:58:00 DIS Inpatient ISI SENA MD [facility] 4TH VOLUME DEPLETION;PEG TUBE DISLODGED [id number] 08/20/2017 02:27:00 08/20/2017 02:45:00 DIS Emergency TINA ASTORGA, MARC Sanchez [facility] ER PEG TUBE [id number] 08/19/2017 03:52:00 08/19/2017 05:20:00 DIS Emergency MILTON ASTORGA, MARISOL Maldonado [facility] ER PULLED OUT FEEDING TUBE CATHETER [id number] 08/18/2017 12:52:00 08/18/2017 23:59:59 CLS Outpatient LEIGHA ASTORGA, REBA Barker [facility] ENDO NON FUNCTIONING PEG TUBE [id number] 08/14/2017 23:50:00 08/17/2017 15:50:00 DIS Inpatient JAIDA ASTORGA, ISI Sanchez [facility] 4TH CONSTIPATION,UTI,SEPSIS, PEG TUBE,N/V,DELIRIUM [id number] 08/12/2017 18:14:00 08/12/2017 18:23:00 DIS Emergency REJI HAGER CHAIR TRIMMER [facility] ER CONFUSION [id number] 08/02/2017 13:30:00 08/10/2017 16:10:00 DIS Inpatient ISI SENA MD [facility] 4TH SEPSIS,UTI,HEMATURIS, CONFUSION/AGGITATION [id number] 07/25/2017 11:16:00 07/25/2017 23:59:59 CLS Preadmit ISI SENA MD [facility] RAD DYSPHAGIA [id number] 07/19/2017 11:35:00 07/19/2017 13:34:00 DIS Emergency HAGER REJI Daniel CHAIR TRIMMER [facility] ER ABD ISSUES [id number] 07/10/2017 09:56:00 07/18/2017 14:21:00 DIS Inpatient AMA MOON MD [facility] 4TH STENOSIS;DYSPHAGIA [id number] 07/04/2017 12:20:00 07/04/2017 13:05:00 DIS Outpatient AMA MOON MD [facility] PREOP C4-C7 ACDF [id number] 12/13/2016 12:58:00 12/13/2016 23:59:59 CLS Outpatient ANDREW ASTORGA FACCKEZIA FACP CCDS [facility] 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 [id number] 08/02/2016 15:57:00 08/02/2016 23:59:59 CLS Outpatient YENY FIELD DO [facility] RAD M54.2,M54.6 [id number] 03/15/2016 06:44:00 03/15/2016 09:00:00 DIS Outpatient MAGDIEL MARTINEZ MD [facility] SDC MELANA [id number] 03/11/2016 05:32:00 03/11/2016 12:26:00 DIS Outpatient MAGDIEL MARTINEZ MD [facility] PREOP MELANA [id number] 11/19/2015 07:49:00 11/19/2015 23:59:59 CLS Outpatient CHANCE CARRENO [facility] CARD CAD,HYPERTENSION [id number] 10/19/2015 11:54:00 10/19/2015 23:59:59 CLS Outpatient CHANCE CARRENO [facility] RAD CAD,HTN,HLD [id number] 10/16/2015 10:47:00 10/16/2015 23:59:59 CLS Outpatient CHANCE CARRENO [facility] CARD CAD [id number] 08/25/2015 23:58:00 08/26/2015 01:01:00 DIS Emergency MARISOL ROSE MD [facility] ER BOTH EYELIDS BLEEDING( SURGERY ON 08-25-15) [id number] 07/13/2015 13:50:00 07/13/2015 23:59:59 CLS Outpatient AME RODRIGEZ MD [facility] RAD SPINAL STENOSIS OF LUMBOSACRAL SPINE [id number] 01/21/2015 05:57:00 01/24/2015 12:45:00 DIS Inpatient MAE RODRIGEZ MD [facility] 4TH LEFT KNEE SEVERE OSTEOARTHRIS [id number] 01/14/2015 10:10:00 01/14/2015 23:59:59 CLS Outpatient AME RODRIGEZ MD [facility] PREOP LEFT KNEE SEVERE OSTEOARTHRITIS [id number] 09/09/2013 11:13:00 09/09/2013 23:59:59 CLS Outpatient DREW MARTINEZ MD [facility] RAD LT KNEE PAIN [id number] 06/18/2013 08:39:00 06/19/2013 09:30:00 DIS Outpatient KEZIA MORALES MD, FACC FACP CCDS [facility] CATH ANGINA [id number] 04/30/2013 13:55:00 05/01/2013 11:00:00 DIS Outpatient KEZIA MORALES MD, FACC FACP CCDS [facility] CATH CHEST PAIN DYPSENIA HYPERTENSION [id number] 10/25/2012 07:48:00 10/25/2012 23:59:59 CLS Outpatient KEZIA MORALES MD, FACC FACP CCDS [facility] RAD CHEST DISCOMFORT [id number] 10/18/2012 09:33:00 10/18/2012 23:59:59 CLS Outpatient ANDREW ASTORGA FACC ALI FACP CCDS [facility] CARD CHEST DISCOMFORT
[2017-11-19] MEDS ORDERED: NS IV 1000 ML 2,449.41 ML IV ONE (12:45)
[2017-11-19 12:53] LABS: BASOPHILS % (AUTO) 0 % (0-10); EOSINOPHILS # (AUTO) 0.6 10^3/uL (0.0-0.3); EOSINOPHILS % (AUTO) 8 % (0-10); HEMATOCRIT 33 % (40-54); HEMOGLOBIN 11.1 G/DL (13.3-17.7); LYMPHOCYTES # (AUTO) 1.2 X 10^3 (1.0-4.0); LYMPHOCYTES % (AUTO) 16 % (12-44); MEAN CORPUSCULAR HEMOGLOBIN 30 PG (25-34); MEAN CORPUSCULAR HGB CONC 34 G/DL (32-36); MEAN CORPUSCULAR VOLUME 90 FL (80-99); MEAN PLATELET VOLUME 11.6 FL (7.4-10.4); MONOCYTES # (AUTO) 0.6 X 10^3 (0.0-1.0); MONOCYTES % (AUTO) 7 % (0-12); NEUTROPHILS # (AUTO) 5.3 X 10^3 (1.8-7.8); NEUTROPHILS % (AUTO) 68 % (42-75); PLATELET COUNT 289 10^3/uL (130-400); RED BLOOD COUNT 3.67 10^6/uL (4.35-5.85); RED CELL DISTRIBUTION WIDTH 14.3 % (10.0-14.5); WHITE BLOOD COUNT 7.7 10^3/uL (4.3-11.0)
[2017-11-19 13:07] LABS: INR 1.1 (0.8-1.4); PROTHROMBIN TIME PATIENT 13.8 SEC (12.2-14.7)
[2017-11-19 13:12] LABS: ALANINE AMINOTRANSFERASE 20 U/L (0-55); ALBUMIN 3.4 GM/DL (3.2-4.5); ALKALINE PHOSPHATASE 72 U/L (40-136); BILIRUBIN,TOTAL 0.5 MG/DL (0.1-1.0); BUN/CREATININE RATIO 29; CALCIUM 9.3 MG/DL (8.5-10.1); CARBON DIOXIDE 24 MMOL/L (21-32); CHLORIDE 98 MMOL/L (98-107); CREATININE SERUM 1.05 MG/DL (0.60-1.30); GFR ESTIMATED > 60; GLUCOSE 121 MG/DL (70-105); POTASSIUM 4.2 MMOL/L (3.6-5.0); SODIUM 131 MMOL/L (135-145); TOTAL PROTEIN 7.1 GM/DL (6.4-8.2)
[2017-11-19 13:18] LABS: BILIRUBIN,URINE NEGATIVE (NEGATIVE); CLARITY,URINE SLIGHTLY CLOUDY; COLOR,URINE YELLOW; GLUCOSE, URINE (UA) NEGATIVE (NEGATIVE); KETONES,URINE NEGATIVE (NEGATIVE); LEUKOCYTE ESTERASE ,URINE 3+ (NEGATIVE); NITRITE,URINE NEGATIVE (NEGATIVE); PH,URINE 7 (5-9); PROTEIN,URINE NEGATIVE (NEGATIVE); UROBILINOGEN,URINE NORMAL (NORMAL)
[2017-11-19 13:32] LABS: RBC,URINE 0-2 /HPF
[2017-11-19 13:33] LABS: BACTERIA,URINE FEW /HPF; WBC,URINE >100 /HPF
--- NOTE | 2017-11-19 14:25 | Diagnostic Imaging Report ---
Indication: Altered mental status. Comparison: 09/18/2017. Findings: Low lung volumes. Right basilar patchy opacities are similar. No pleural effusion or pneumothorax. Stable cardiomediastinal silhouette. Impression: 1. Chronic right basilar pulmonary opacities are stable and likely due to atelectasis/scar. No acute cardiopulmonary process by portable radiography. Dictated by: Dictated on workstation # [id number]
--- NOTE | 2017-11-19 14:49 | ED General ---
General Chief Complaint: Altered Mental Status Stated Complaint: AMS Nursing Triage Note: Pt brought from long term to ED via EMS. EMS states pt was awoken at approximately 1015 and was exhibiting altered mental status. Nurse went in shortly later and pt was found unresponsive. EMS was called at that time. Pt repsonsive to pain upon arrival to ED. Pt arrived to ED with joe catheter in place. Per Dr. Orozco, pt's urethra is torn. Nursing Sepsis Screen: No Definite Risk Source of Information: Patient Exam Limitations: No Limitations History of Present Illness Date Seen by Provider: Nov 19, 2017 Time Seen by Provider: 12:30 Initial Comments Here with report from the long term of altered mental status. They also noted that the Joe catheter appears to be eroding through the meatus into the penis shaft proper. Patient has significant underlying comorbidities and has feeding tube and chronic Joe catheter in place. No report of fever or vomiting. Patient is usually not very verbal but is worse today. Unable to gain any history from the patient. Timing/Duration: 4-6 Hours Severity: Moderate, Severe Allergies and Home Medications Allergies Coded Allergies: No Known Drug Allergies (Unverified , 10/25/12) Home Medications Acetaminophen 325 Mg Tablet, 650 MG PO Q4H PRN for TEMPATURE OR MILD PAIN, ( Reported) Amoxicillin/Potassium Clav 1 Each Tablet, 1 EACH PEG BID Crush and give via PEG tube. Prescribed by: REJI HAGER on 09/18/17 1351 Aspirin 81 Mg Tab.chew, 81 MG PEG DAILY, (Reported) Dorzolamide HCl/Timolol Maleat 10 Ml Drops, 1 DROP OU BID, (Reported) Famotidine 20 Mg Tablet, 20 MG PEG BID, (Reported) Glycerin/Propylene Glycol 30 Ml Drops, 1 DROP OU QID PRN for DRY EYES, (Reported ) Lactose-Reduced Food/Fiber 237 Ml Liquid, 237 ML PEG 5XD, (Reported) Levothyroxine Sodium 88 Mcg Tablet, 88 MCG PEG DAILY, (Reported) Lorazepam 1 Mg Tablet, 1 MG PEG Q4H PRN for AGITATION, (Reported) Loteprednol Etabonate 5 Gm Drops.gel, 1 DROP OD 1800, (Reported) Magnesium Hydroxide 400 Mg/5 Ml Oral.susp, 30 ML PEG DAILY PRN for CONSTIPATION- 7TH LINE, (Reported) Melatonin 3 Mg Tablet, 3 MG PO HS, (Reported) Metoprolol Tartrate 50 Mg Tablet, 50 MG PEG BID, (Reported) Tramadol HCl 50 Mg Tablet, 50 MG PO Q6H PRN for PAIN-MODERATE, (Reported) Ziprasidone HCl 20 Mg Capsule, 20 MG PO Q12H, (Reported) Patient Home Medication List Home Medication List Reviewed: Yes Review of Systems Review of Systems Constitutional: No fever; weakness Unable complete review of systems due to altered mental status Past Nvlgydj-Olgwxy-Pyvyqu Hx Patient Social History Alcohol Use: Denies Use Recreational Drug Use: No Type Used: Cigarettes Former Smoker, Quit: Mar 11, 1989 2nd Hand Smoke Exposure: No Recent Foreign Travel: No Contact w/Someone Who Travel: No Recent Infectious Disease Expo: No Recent Hopitalizations: Yes Physical Abuse: No Sexual Abuse: No Immunizations Up To Date Date of Pneumonia Vaccine: Nov 12, 2015 Date of Influenza Vaccine: Dec 06, 2015 Seasonal Allergies Seasonal Allergies: No Past Medical History Surgeries: Yes (CORNEA TRANSPLANT, MASTOIDECTOMY, eyelid reduction, L TKR, neck , PEG tube) Gallbladder, Joint Replacement, Orthopedic Respiratory: No Cardiac: Yes (STENTS X2-LAST ONE COUPLE YEARS AGO) Coronary Artery Disease, High Cholesterol, Hypertension Neurological: Yes (dysphagia) Dementia Reproductive Disorders: No Sexually Transmitted Disease: No HIV/AIDS: No Genitourinary: Yes (joe cath since having sx on cervical spin for stenosis) UTI-Chronic Gastrointestinal: Yes (peg tube placement since having sx on cervical spine for stenosis) Chronic Constipation Musculoskeletal: Yes (spinal stenosis, ) Arthritis, Chronic Back Pain Endocrine: No Hypothyroidsim HEENT: Yes Glaucoma Loss of Vision: Bilateral Hearing Impairment: Denies Cancer: No Psychosocial: No Integumentary: No Blood Disorders: No Adverse Reaction/Blood Tranf: No Family Medical History LUNG CANCER G8 BROTHER Myocardial infarction 19 MOTHER Physical Exam-Suspected Sepsis Physical Exam Vital Signs Vital Signs - First Documented 11/19/17 12:12 Temp 96.6 Pulse 83 Resp 7 B/P (MAP) 105/60 (75) Pulse Ox 91 O2 Delivery Room Air Capillary Refill : Greater Than 3 Seconds Blood Pressure Mean: 75 Height, Weight, BMI Height: 6'0" Weight: 170lbs. 7.0oz. [id number]; 22.6 BMI Method:Estimated General Appearance: Chronically ill, Cachetic, Mild Distress HEENT: PERRL/EOMI, Other (dry mucous membranes) Neck: Limited Range of Motion (age and atrophy related); No Lymphadenopathy (L) , No Lymphadenopathy (R) Respiratory: Lungs Clear, Normal Breath Sounds Cardiovascular: Regular Rate, Rhythm, No Murmur Gastrointestinal: Non Tender, Soft Genital/Rectal: Other (Joe catheter has eroded through the meatus and into the body of the penis in the inferior aspect to below the glans) Back: Normal Inspection, No CVA Tenderness, No Vertebral Tenderness Extremity: Normal Inspection, Normal Range of Motion Neurologic/Psychiatric: Depressed Affect, Disoriented, Other (does moan in pain when touching tender areas such as the Joe catheter) Skin: normal color, warm/dry Focused Exam Lactate Level 11/19/17 14:36: Lactic Acid Level 0.79 Lactic Acid Level Laboratory Tests Test 11/19/17 14:36 Lactic Acid Level 0.79 MMOL/L (0.50-2.00) Progress/Results/Core Measures Suspected Sepsis Recent Fever Within 48 Hours: No Infection Criteria Present: None New/Unexplained Altered Menta: Yes Sepsis Screen: No Definite Risk SIRS Temperature:96.6 Pulse: 83 Respiratory Rate: 7 Laboratory Tests 11/19/17 12:20: White Blood Count 7.7 Blood Pressure 105 /60 Mean: 75 11/19/17 14:36: Lactic Acid Level 0.79 Laboratory Tests 11/19/17 12:20: Creatinine 1.05, INR Comment 1.1, Platelet Count 289, Total Bilirubin 0.5 Results/Orders Lab Results Laboratory Tests Test 11/19/17 12:20 11/19/17 12:59 11/19/17 14:36 Range/Units White Blood Count 7.7 4.3-11.0 10^3/uL Red Blood Count 3.67 L 4.35-5.85 10^6/uL Hemoglobin 11.1 L 13.3-17.7 G/DL Hematocrit 33 L 40-54 % Mean Corpuscular Volume 90 80-99 FL Mean Corpuscular Hemoglobin 30 25-34 PG Mean Corpuscular Hemoglobin Concent 34 32-36 G/DL Red Cell Distribution Width 14.3 10.0-14.5 % Platelet Count 289 130-400 10^3/uL Mean Platelet Volume 11.6 H 7.4-10.4 FL Neutrophils (%) (Auto) 68 42-75 % Lymphocytes (%) (Auto) 16 12-44 % Monocytes (%) (Auto) 7 0-12 % Eosinophils (%) (Auto) 8 0-10 % Basophils (%) (Auto) 0 0-10 % Neutrophils # (Auto) 5.3 1.8-7.8 X 10^3 Lymphocytes # (Auto) 1.2 1.0-4.0 X 10^3 Monocytes # (Auto) 0.6 0.0-1.0 X 10^3 Eosinophils # (Auto) 0.6 H 0.0-0.3 10^3/uL Basophils # (Auto) 0.0 0.0-0.1 10^3/uL Prothrombin Time 13.8 12.2-14.7 SEC INR Comment 1.1 0.8-1.4 Activated Partial Thromboplast Time 31 24-35 SEC Sodium Level 131 L 135-145 MMOL/L Potassium Level 4.2 3.6-5.0 MMOL/L Chloride Level 98 98-107 MMOL/L Carbon Dioxide Level 24 21-32 MMOL/L Anion Gap 9 5-14 MMOL/L Blood Urea Nitrogen 30 H 7-18 MG/DL Creatinine 1.05 0.60-1.30 MG/DL Estimat Glomerular Filtration Rate > 60 BUN/Creatinine Ratio 29 Glucose Level 121 H 70-105 MG/DL Calcium Level 9.3 8.5-10.1 MG/DL Corrected Calcium 9.8 8.5-10.1 MG/DL Total Bilirubin 0.5 0.1-1.0 MG/DL Aspartate Amino Transf (AST/SGOT) 17 5-34 U/L Alanine Aminotransferase (ALT/SGPT) 20 0-55 U/L Alkaline Phosphatase 72 40-136 U/L Total Protein 7.1 6.4-8.2 GM/DL Albumin 3.4 3.2-4.5 GM/DL Urine Color YELLOW Urine Clarity SLIGHTLY CLOUDY Urine pH 7 5-9 Urine Specific [place] 1.005 L 1.016-1.022 Urine Protein NEGATIVE NEGATIVE Urine Glucose (UA) NEGATIVE NEGATIVE Urine Ketones NEGATIVE NEGATIVE Urine Nitrite NEGATIVE NEGATIVE Urine Bilirubin NEGATIVE NEGATIVE Urine Urobilinogen NORMAL NORMAL MG/DL Urine Leukocyte Esterase 3+ H NEGATIVE Urine RBC (Auto) 1+ H NEGATIVE Urine RBC 0-2 /HPF Urine WBC >100 H /HPF Urine Crystals NONE /LPF Urine Bacteria FEW H /HPF Urine Casts NONE /LPF Urine Mucus NEGATIVE /LPF Urine Culture Indicated NO Lactic Acid Level 0.79 0.50-2.00 MMOL/L My Orders Orders - EBONI OROZCO MD Cbc With Automated Diff (11/19/17 12:38) Comprehensive Metabolic Panel (11/19/17 12:38) Blood Culture (11/19/17 12:38) Sputum Culture (11/19/17 12:38) Urinalysis (11/19/17 12:38) Urine Culture (11/19/17 12:38) Protime With Inr (11/19/17 12:38) Partial Thromboplastin Time (11/19/17 12:38) Chest 1 View, Ap/Pa Only (11/19/17 12:38) Saline Lock/Iv-Start (11/19/17 12:38) Saline Lock/Iv-Start (11/19/17 12:38) Vital Signs Adult Sepsis Patie Q15M (11/19/17 12:38) O2 (11/19/17 12:38) Remove Rings In Anticipation O (11/19/17 12:38) Lactic Acid Analyzer (11/19/17 12:38) Ns Iv 1000 Ml (Sodium Chloride 0.9%) (11/19/17 12:45) Ns Iv 500 Ml (Sodium Chloride 0.9%) (11/19/17 14:56) Urine Culture (11/19/17 15:13) Medications Given in ED Current Medications Medications Dose Ordered Sig/Moshe Route Start Time Stop Time Status Last Admin Dose Admin Sodium Chloride 500 ml @ ud STK-MED ONCE .ROUTE 11/19/17 14:56 11/19/17 15:00 DC 11/19/17 15:15 500 MLS/HR Sodium Chloride 2,449.41 ml @ 2,449.41 mls/hr ONCE ONCE IV 11/19/17 12:45 11/19/17 13:44 DC 11/19/17 12:35 2,449.41 MLS/HR Vital Signs/I&O 11/19/17 12:12 Temp 96.6 Pulse 83 Resp 7 B/P (MAP) 105/60 (75) Pulse Ox 91 O2 Delivery Room Air Capillary Refill : Greater Than 3 Seconds Blood Pressure Mean: 75 Progress Note : Progress Note Seen and evaluated. IV 2, labs, UA, chest x-ray, blood cultures and lactic acid ordered. Normal saline 2.5 L bolus ordered. Monitor patient. 1508: Patient is mentating well now and dehydration seems to have been concern. He has responded quite well to that. Labs are reviewed. I did discuss the case with Dr. Bedolla, on-call for Dr. Sena. We will get a culture on the urine but hold off treatment currently and wait for culture results as he may have colonization versus contamination. Patient is asking for something to drink and is much more appropriate and at his baseline for mentation. Dr. Bedolla and I both agree that he can return back to long term pending results and patient did not argue with that either. Discharge back to long term with return precautions. I will send a copy of the discharge instructions to the long term as well as a copy of the chart to Dr. Sena. Diagnostic Imaging Diagonstic Imaging: Xray Plain Films/CT/US/NM/MRI: chest Comments VIA [facility]. [place], [place] NAME: ROSALBA SMITH [facility] REC#: [id number] PT STATUS: REG ER : 1935 PHYSICIAN: EBONI OROZCO MD ADMIT DATE: 11/19/17/ER Draft Date of Exam:11/19/17 CHEST 1 VIEW, AP/PA ONLY Indication: Altered mental status. Comparison: 09/18/2017. Findings: Low lung volumes. Right basilar patchy opacities are similar. No pleural effusion or pneumothorax. Stable cardiomediastinal silhouette. Impression: 1. Chronic right basilar pulmonary opacities are stable and likely due to atelectasis/scar. No acute cardiopulmonary process by portable radiography. Dictated on workstation # [id number] Dict: 11/19/17 1421 Trans: 11/19/17 1424 [facility] [id number] Interpreted by: HYACINTH TRINIDAD MD Electronically signed by: Departure Impression Primary Impression: Dehydration Additional Impressions: Physical debility Urethral erosion by catheter Qualified Codes: T83.89XA - Other specified complication of genitourinary prosthetic devices, implants and grafts, initial encounter; N36.8 - Other specified disorders of urethra Disposition: HOME, SELF-CARE Condition: Improved Departure-Patient Inst. Decision time for Depature: 15:52 Referrals: ISI SENA MD (PCP/Family) Primary Care Physician CÉSAR RAMOS MD Patient Instructions: Dehydration, Adult (DC), Dementia (DC) Add. Discharge Instructions: All discharge instructions reviewed with patient and/or family. Voiced understanding. Continue home feeds and a encourage plenty of fluids. Follow up with your Dr. in a few days for recheck. You will need to follow-up with the urologist related to the catheter irritation and erosion on the penis. Return for worse pain, fever, vomiting, weakness, breathing problems or other concerns as needed. Copy Copies To 1: ISI SENA MD, TIMOTHY D MD Nov 19, 2017 14:49
[2017-11-19] MEDS ORDERED: NS IV 500 ML 500 ML ONE (14:56)
[2017-11-19 16:21] VITALS: BP 163/84
[2017-11-20] MEDS ORDERED: NS IV 1000 ML 2,000 ML ONE (07:34)
[2017-11-27] MEDS ORDERED: CEFP500T4 PO (07:51)
[2017-12-04] MEDS ORDERED: ZPR40C PO (08:42)
[2017-12-04] MEDS ORDERED: ASPI-999 PO (08:42)
== END 2017-11-19 17:03 | disposition home or self-care (01) ==
LOC: EDUNIT# 12:12 → ER 12:13
DX: E86.0 Dehydration (principal); R53.81 Other malaise; I25.10 Atherosclerotic heart disease of native coronary artery without angina pectoris; T83.89XA Other specified complication of genitourinary prosthetic devices, implants and grafts, initial encounter; N36.8 Other specified disorders of urethra; E78.00 Pure hypercholesterolemia, unspecified; I10 Essential (primary) hypertension; F03.90 Unspecified dementia, unspecified severity, without behavioral disturbance, psychotic disturbance, mood disturbance, and anxiety; E03.9 Hypothyroidism, unspecified; Z82.49 Family history of ischemic heart disease and other diseases of the circulatory system; Z80.1 Family history of malignant neoplasm of trachea, bronchus and lung; Z96.0 Presence of urogenital implants; Z87.440 Personal history of urinary (tract) infections; Z79.82 Long term (current) use of aspirin; Z87.19 Personal history of other diseases of the digestive system; Z87.891 Personal history of nicotine dependence; Z90.89 Acquired absence of other organs; Z96.652 Presence of left artificial knee joint; Z94.7 Corneal transplant status; Z95.5 Presence of coronary angioplasty implant and graft
CPT/HCPCS: 36415; 71045; 80053; 81000; 83605; 85025; 85610; 85730; 87040; 87088; 96360; 96361

== ENCOUNTER 2017-11-24 10:01 | Inpatient (IN) | payer MEDICARE, OTHER ==
[~2017-11-24] VITALS: Ht 175.3 cm; Wt 77.8 kg
[2017-11-24 10:59] LABS: BASOPHILS % (AUTO) 1 % (0-10); EOSINOPHILS # (AUTO) 0.4 10^3/uL (0.0-0.3); EOSINOPHILS % (AUTO) 4 % (0-10); HEMATOCRIT 33 % (40-54); HEMOGLOBIN 10.9 G/DL (13.3-17.7); LYMPHOCYTES # (AUTO) 1.4 X 10^3 (1.0-4.0); LYMPHOCYTES % (AUTO) 16 % (12-44); MEAN CORPUSCULAR HGB CONC 33 G/DL (32-36); MEAN CORPUSCULAR VOLUME 89 FL (80-99); MEAN PLATELET VOLUME 11.9 FL (7.4-10.4); MONOCYTES # (AUTO) 0.6 X 10^3 (0.0-1.0); MONOCYTES % (AUTO) 7 % (0-12); NEUTROPHILS # (AUTO) 6.2 X 10^3 (1.8-7.8); NEUTROPHILS % (AUTO) 72 % (42-75); PLATELET COUNT 367 10^3/uL (130-400); RED CELL DISTRIBUTION WIDTH 14.6 % (10.0-14.5); WHITE BLOOD COUNT 8.5 10^3/uL (4.3-11.0)
[2017-11-24 11:00] LABS: MEAN CORPUSCULAR HEMOGLOBIN 29 PG (25-34)
[2017-11-24 11:05] LABS: PROTHROMBIN TIME PATIENT 13.3 SEC (12.2-14.7)
[2017-11-24 11:10] LABS: ALBUMIN 3.6 GM/DL (3.2-4.5); BILIRUBIN,TOTAL 0.4 MG/DL (0.1-1.0); CALCIUM 9.7 MG/DL (8.5-10.1); CREATININE SERUM 1.38 MG/DL (0.60-1.30); POTASSIUM 4.5 MMOL/L (3.6-5.0); TOTAL PROTEIN 7.8 GM/DL (6.4-8.2)
[2017-11-24 11:11] LABS: BILIRUBIN,URINE NEGATIVE (NEGATIVE); CLARITY,URINE VERY CLOUDY; COLOR,URINE YELLOW; GLUCOSE, URINE (UA) NEGATIVE (NEGATIVE); KETONES,URINE NEGATIVE (NEGATIVE); LEUKOCYTE ESTERASE ,URINE 3+ (NEGATIVE); NITRITE,URINE POSITIVE (NEGATIVE); PH,URINE 6.5 (5-9); PROTEIN,URINE 2+ (NEGATIVE); UROBILINOGEN,URINE 1 MG/DL (NORMAL)
[2017-11-24 11:31] LABS: BACTERIA,URINE MODERATE /HPF; RBC,URINE >100 /HPF; WBC,URINE TNTC /HPF
--- NOTE | 2017-11-24 11:55 | Diagnostic Imaging Report ---
INDICATION: Increased productive cough and shortness of air after feeding tube placed. TECHNIQUE: Single view chest 11 a.m. CORRELATION STUDY: 11/19/2017 FINDINGS: The heart size, mediastinal configuration and pulmonary vascularity are stable. Density in the medial right lung base likely relatively stable. Cervical spinal fusion hardware partially visualized. IMPRESSION: 1. Asymmetric parenchymal density right infrahilar region. While this appears present on prior study, given location history, possibility of underlying aspiration would be difficult to exclude. Findings are superimposed on chronic changes of the lung parenchyma. Dictated by: Dictated on workstation # [id number]
--- NOTE | 2017-11-24 12:16 | ED Respiratory ---
General Chief Complaint: Respiratory Problems Nursing Triage Note: pt presents to ed per ems from via [facility] with complaints of increased productive cough and soa after tube feeding this am. Source: patient History of Present Illness Date Seen by Provider: Nov 24, 2017 Time Seen by Provider: 12:14 Initial Comments This 82-year-old white male presents after [facility] this [facility]. The patient began coughing and was extremely short of breath approximately an hour after his tube feeding this morning. There was no intercurrent history of fever, chills, or productive sputum prior to this morning. Allergies and Home Medications Allergies Coded Allergies: No Known Drug Allergies (Unverified , 10/25/12) Home Medications Acetaminophen 325 Mg Tablet, 650 MG PO Q4H PRN for TEMPATURE OR MILD PAIN, ( Reported) Amoxicillin/Potassium Clav 1 Each Tablet, 1 EACH PEG BID Crush and give via PEG tube. Prescribed by: REJI HAGER on 09/18/17 1351 Aspirin 81 Mg Tab.chew, 81 MG PEG DAILY, (Reported) Dorzolamide HCl/Timolol Maleat 10 Ml Drops, 1 DROP OU BID, (Reported) Famotidine 20 Mg Tablet, 20 MG PEG BID, (Reported) Glycerin/Propylene Glycol 30 Ml Drops, 1 DROP OU QID PRN for DRY EYES, (Reported ) Lactose-Reduced Food/Fiber 237 Ml Liquid, 237 ML PEG 5XD, (Reported) Levothyroxine Sodium 88 Mcg Tablet, 88 MCG PEG DAILY, (Reported) Lorazepam 1 Mg Tablet, 1 MG PEG Q4H PRN for AGITATION, (Reported) Loteprednol Etabonate 5 Gm Drops.gel, 1 DROP OD 1800, (Reported) Magnesium Hydroxide 400 Mg/5 Ml Oral.susp, 30 ML PEG DAILY PRN for CONSTIPATION- 7TH LINE, (Reported) Melatonin 3 Mg Tablet, 3 MG PO HS, (Reported) Metoprolol Tartrate 50 Mg Tablet, 50 MG PEG BID, (Reported) Tramadol HCl 50 Mg Tablet, 50 MG PO Q6H PRN for PAIN-MODERATE, (Reported) Ziprasidone HCl 20 Mg Capsule, 20 MG PO Q12H, (Reported) Patient Home Medication List Home Medication List Reviewed: Yes Review of Systems Review of Systems Constitutional: No chills; weakness EENTM: No ear pain, No epistaxis Respiratory: see HPI, cough, short of breath Cardiovascular: No chest pain Gastrointestinal: No abdominal pain, No diarrhea, No vomiting Genitourinary: no symptoms reported Musculoskeletal: No back pain Skin: No rash Psychiatric/Neurological: No Symptoms Reported Hematologic/Lymphatic: No Symptoms Reported Immunological/Allergic: no symptoms reported Past Gyczvhv-Znppta-Qdsnhk Hx Past Med/Social Hx: Reviewed Nursing Past Med/Soc Hx Patient Social History Alcohol Use: Denies Use Recreational Drug Use: No Smoking Status: Former Smoker Type Used: Cigarettes Former Smoker, Quit: Mar 11, 1989 2nd Hand Smoke Exposure: No Recent Foreign Travel: No Contact w/Someone Who Travel: No Recent Infectious Disease Expo: No Recent Hopitalizations: Yes Physical Abuse: No Sexual Abuse: No Mistreated: No Fear: No Immunizations Up To Date Date of Pneumonia Vaccine: Nov 12, 2015 Date of Influenza Vaccine: Dec 06, 2015 Seasonal Allergies Seasonal Allergies: No Past Medical History Surgeries: Yes (CORNEA TRANSPLANT, MASTOIDECTOMY, eyelid reduction, L TKR, neck , PEG tube) Gallbladder, Joint Replacement, Orthopedic Respiratory: Yes (hx of aspiration pneumonia) Cardiac: Yes (STENTS X2-LAST ONE COUPLE YEARS AGO) Coronary Artery Disease, High Cholesterol, Hypertension Neurological: Yes (dysphagia) Dementia Reproductive Disorders: No Sexually Transmitted Disease: No HIV/AIDS: No Genitourinary: Yes (joe cath since having sx on cervical spin for stenosis, kidney failure) UTI-Chronic Gastrointestinal: Yes (peg tube placement since having sx on cervical spine for stenosis) Chronic Constipation Musculoskeletal: Yes (spinal stenosis, oteoarthritis, r/l knee contracture) Arthritis, Chronic Back Pain, Fractures Endocrine: No Hypothyroidsim HEENT: Yes Glaucoma Loss of Vision: Bilateral Hearing Impairment: Denies Cancer: No Psychosocial: No Integumentary: No Blood Disorders: No Adverse Reaction/Blood Tranf: No Family Medical History LUNG CANCER G8 BROTHER Myocardial infarction 19 MOTHER Physical Exam Vital Signs - First Documented 11/24/17 10:19 Temp 98.3 Pulse 100 Resp 36 B/P (MAP) 136/97 (110) Pulse Ox 97 O2 Delivery Non Rebreather O2 Flow Rate 15.00 Capillary Refill : Less Than 3 Seconds Height: 5'10.00" Weight: 150lbs. 7.0oz. 68.045958zk; 22.6 BMI Method:Estimated General Appearance: mild distress, cachetic Eyes: Bilateral Eye Normal Inspection HEENT: normal ENT inspection Neck: full range of motion, supple Respiratory: decreased breath sounds, rales, other (a loose wet cough is present) Cardiovascular: regular rate, rhythm Gastrointestinal: normal bowel sounds, non tender, soft Extremities: normal range of motion, non-tender Neurologic/Psychiatric: no motor/sensory deficits Skin: normal color, warm/dry; No rash Focused Exam Lactate Level 11/24/17 10:00: Lactic Acid Level 0.93 Lactic Acid Level Laboratory Tests Test 11/24/17 10:00 Lactic Acid Level 0.93 MMOL/L (0.50-2.00) Progress/Results/Core Measures Suspected Sepsis Recent Fever Within 48 Hours: No Infection Criteria Present: Suspected New Infection New/Unexplained Altered Menta: Yes Sepsis Screen: Possible Severe Sepsis Risk SIRS Temperature:98.3 Pulse: 100 Respiratory Rate: 36 Laboratory Tests 11/24/17 10:00: White Blood Count 8.5 Blood Pressure 136 /97 Mean: 110 11/24/17 10:00: Lactic Acid Level 0.93 Laboratory Tests 11/24/17 10:00: Creatinine 1.38H, INR Comment 1.0, Platelet Count 367, Total Bilirubin 0.4 Results/Orders Lab Results Laboratory Tests Test 11/24/17 10:00 11/24/17 10:05 Range/Units White Blood Count 8.5 4.3-11.0 10^3/uL Red Blood Count 3.70 L 4.35-5.85 10^6/uL Hemoglobin 10.9 L 13.3-17.7 G/DL Hematocrit 33 L 40-54 % Mean Corpuscular Volume 89 80-99 FL Mean Corpuscular Hemoglobin 29 25-34 PG Mean Corpuscular Hemoglobin Concent 33 32-36 G/DL Red Cell Distribution Width 14.6 H 10.0-14.5 % Platelet Count 367 130-400 10^3/uL Mean Platelet Volume 11.9 H 7.4-10.4 FL Neutrophils (%) (Auto) 72 42-75 % Lymphocytes (%) (Auto) 16 12-44 % Monocytes (%) (Auto) 7 0-12 % Eosinophils (%) (Auto) 4 0-10 % Basophils (%) (Auto) 1 0-10 % Neutrophils # (Auto) 6.2 1.8-7.8 X 10^3 Lymphocytes # (Auto) 1.4 1.0-4.0 X 10^3 Monocytes # (Auto) 0.6 0.0-1.0 X 10^3 Eosinophils # (Auto) 0.4 H 0.0-0.3 10^3/uL Basophils # (Auto) 0.0 0.0-0.1 10^3/uL Prothrombin Time 13.3 12.2-14.7 SEC INR Comment 1.0 0.8-1.4 Activated Partial Thromboplast Time 34 24-35 SEC Sodium Level 133 L 135-145 MMOL/L Potassium Level 4.5 3.6-5.0 MMOL/L Chloride Level 99 98-107 MMOL/L Carbon Dioxide Level 25 21-32 MMOL/L Anion Gap 9 5-14 MMOL/L Blood Urea Nitrogen 31 H 7-18 MG/DL Creatinine 1.38 H 0.60-1.30 MG/DL Estimat Glomerular Filtration Rate 49 BUN/Creatinine Ratio 22 Glucose Level 114 H 70-105 MG/DL Lactic Acid Level 0.93 0.50-2.00 MMOL/L Calcium Level 9.7 8.5-10.1 MG/DL Corrected Calcium 10.0 8.5-10.1 MG/DL Total Bilirubin 0.4 0.1-1.0 MG/DL Aspartate Amino Transf (AST/SGOT) 22 5-34 U/L Alanine Aminotransferase (ALT/SGPT) 24 0-55 U/L Alkaline Phosphatase 75 40-136 U/L Total Protein 7.8 6.4-8.2 GM/DL Albumin 3.6 3.2-4.5 GM/DL Urine Color YELLOW Urine Clarity VERY CLOUDY H Urine pH 6.5 5-9 Urine Specific [place] 1.010 L 1.016-1.022 Urine Protein 2+ H NEGATIVE Urine Glucose (UA) NEGATIVE NEGATIVE Urine Ketones NEGATIVE NEGATIVE Urine Nitrite POSITIVE H NEGATIVE Urine Bilirubin NEGATIVE NEGATIVE Urine Urobilinogen 1 NORMAL MG/DL Urine Leukocyte Esterase 3+ H NEGATIVE Urine RBC (Auto) 5+ H NEGATIVE Urine RBC >100 H /HPF Urine WBC TNTC H /HPF Urine Crystals NONE /LPF Urine Bacteria MODERATE H /HPF Urine Casts NONE /LPF Urine Mucus NEGATIVE /LPF Urine Culture Indicated NO My Orders Orders - MAGDIEL MURO MD Cbc With Automated Diff (11/24/17 10:53) Comprehensive Metabolic Panel (11/24/17 10:53) Blood Culture (11/24/17 10:53) Sputum Culture (11/24/17 10:53) Urinalysis (11/24/17 10:53) Urine Culture (11/24/17 10:53) Protime With Inr (11/24/17 10:53) Partial Thromboplastin Time (11/24/17 10:53) Chest 1 View, Ap/Pa Only (11/24/17 10:53) Saline Lock/Iv-Start (11/24/17 10:53) Saline Lock/Iv-Start (11/24/17 10:53) Vital Signs Adult Sepsis Patie Q15M (11/24/17 10:53) O2 (11/24/17 10:53) Remove Rings In Anticipation O (11/24/17 10:53) Lactic Acid Analyzer (11/24/17 10:53) Albuterol/Ipra Inhalation Soln (Duoneb I (11/24/17 12:45) Svn Small Volume Nebulizer (11/24/17 12:39) Vital Signs/I&O 11/24/17 10:19 Temp 98.3 Pulse 100 Resp 36 B/P (MAP) 136/97 (110) Pulse Ox 97 O2 Delivery Non Rebreather O2 Flow Rate 15.00 Capillary Refill : Less Than 3 Seconds Blood Pressure Mean: 110 Progress Note : Time: 12:42 Progress Note The patient's chest x-ray was consistent with an early aspiration pattern in the right. Hilar area. The patient had a loose wet cough on auscultation of his chest. Telephone consultation was undertaken with Dr. Sena. Seem likely that the patient was going to develop an aspiration pneumonia. We admitted the patient to observation for frequent DuoNeb treatments. Will watch closely to see if the patient has aspiration pattern that's progressed tomorrow on his portable chest x-ray. At this point were going to hold off on empiric antibiotics. Departure Communication (Admissions) Time/Spoke to Admitting Phy: 12:43 Dr. Sena. Impression Primary Impression: Aspiration into airway Qualified Codes: T17.908A - Unspecified foreign body in respiratory tract, part unspecified causing other injury, initial encounter Disposition: ADMITTED INPATIENT Condition: Unchanged Admissions Decision to Admit Reason: Admit from ER (General) Decision to Admit/Date: Nov 24, 2017 Time/Decision to Admit Time: 12:44 Departure-Patient Inst. Referrals: ISI SENA MD (PCP/Family) Primary Care Physician MAGDIEL MURO MD Nov 24, 2017 12:16
[2017-11-24] MEDS ORDERED: RT-ALBUTEROL/IPRATROPIUM 3 ML (DUONEB) VIAL INH ONE (12:45)
[2017-11-24] MEDS ORDERED: RT-ALBUTEROL/IPRATROPIUM 3 ML (DUONEB) VIAL IH PRN (14:00)
[2017-11-24] MEDS ORDERED: CATHETER FLUSH 10 ML SYR IV PRN (14:00)
[2017-11-24] MEDS ORDERED: POLY15DR14 OU (14:50)
[2017-11-24] MEDS ORDERED: [UNRECOGNIZED DRUG - CODE] TP (14:50)
[2017-11-24] MEDS ORDERED: LOPE-134 PEG (14:50)
[2017-11-24] MEDS ORDERED: ZIPR40CA26 PEG (14:50)
[2017-11-24] MEDS ORDERED: NYST1000 TOP (14:50)
[2017-11-24] MEDS ORDERED: HYDR-3812 PEG (14:50)
[2017-11-24] MEDS ORDERED: FEN12TD TD (14:50)
--- NOTE | 2017-11-24 14:59 | History & Physicial ---
History of Present Illness History of Present Illness Reason for visit/HPI 82 yo male presents to ED with possible aspiration. He apparently started having SOB with "gurgly" sounds with breathing. He had been in his usual state of health. Date of Admission Nov 24, 2017 at 12:57 Date Seen by a Provider: Nov 24, 2017 Time Seen by a Provider: 14:45 I consulted on this patient on 11/24/17 14:55 Attending Physician Isi Sena MD Admitting Physician Isi Sena MD Consult Allergies and Home Medications Allergies Coded Allergies: No Known Drug Allergies (Unverified , 10/25/12) Home Medications Acetaminophen 325 Mg Tablet, 650 MG PEG Q4H PRN for TEMPATURE OR MILD PAIN, ( Reported) Aspirin 81 Mg Tab.chew, 81 MG PEG DAILY, (Reported) Dorzolamide HCl/Timolol Maleat 10 Ml Drops, 1 DROP OU BID, (Reported) Famotidine 20 Mg Tablet, 20 MG PEG BID, (Reported) Fentanyl 12 Mcg Patch, 12 MCG TD Q72H, (Reported) Hydrocodone/Acetaminophen 1 Each Tablet, 1 TAB PEG Q6H PRN for BREAKTHROUGH PAIN , (Reported) Levothyroxine Sodium 88 Mcg Tablet, 88 MCG PEG DAILY, (Reported) Loperamide HCl 2 Mg Tablet, 2-4 MG PEG Q8H PRN for LOOSE STOOLS, (Reported) Lorazepam 1 Mg Tablet, 1 MG PEG Q4H PRN for AGITATION, (Reported) Loteprednol Etabonate 5 Gm Drops.gel, 1 DROP OD 1800, (Reported) Magnesium Hydroxide 400 Mg/5 Ml Oral.susp, 30 ML PEG DAILY PRN for CONSTIPATION- 7TH LINE, (Reported) Melatonin 3 Mg Tablet, 3 MG PEG HS, (Reported) Metoprolol Tartrate 50 Mg Tablet, 50 MG PEG BID, (Reported) Nystatin 100,000 Unit/1 Ml Oral.susp, TOP 5XD, (Reported) SWAB ONTON TONGUE 5 TIMES A DAY FOR MOUTH SORENESS Polyvinyl Alcohol/Povidone 15 Ml Drops, 1 DROP OU QID PRN for DRY EYES, ( Reported) Tramadol HCl 50 Mg Tablet, 50 MG PEG Q6H PRN for PAIN-MODERATE, (Reported) Zinc Oxide 113 Gm Cream..g., TP BID, (Reported) Ziprasidone HCl 40 Mg Capsule, 40 MG PEG Q12H, (Reported) Patient Home Medication List Home Medication List Reviewed: Yes Past Nqqhwip-Hdfvfl-Wbigrv Hx Patient Social History Marrital Status: Number of Children: 2 Alcohol Use: Denies Use Recreational Drug Use: No Smoking Status: Former Smoker Former Smoker, Quit: Mar 11, 1989 Type Used: Cigarettes 2nd Hand Smoke Exposure: No Recent Foreign Travel: No Contact w/other who traveled: No Recent Hopitalizations: Yes Recent Infectious Disease Expo: No Immunizations Up To Date Date of Pneumonia Vaccine: Nov 12, 2015 Date of Influenza Vaccine: Dec 06, 2015 Seasonal Allergies Seasonal Allergies: No Surgeries Yes (CORNEA TRANSPLANT, MASTOIDECTOMY, eyelid reduction, L TKR, neck, PEG tube) Gallbladder, Joint Replacement, Orthopedic Respiratory Yes (hx of aspiration pneumonia) Cardiovascular Yes (STENTS X2-LAST ONE COUPLE YEARS AGO) Coronary Artery Disease, High Cholesterol, Hypertension Neurological Yes (dysphagia) Dementia Reproductive System Hx Reproductive Disorders: No Sexually Transmitted Disease: No HIV/AIDS: No Genitourinary Yes (joe cath since having sx on cervical spin for stenosis, kidney failure) UTI-Chronic Gastrointestinal Yes (peg tube placement since having sx on cervical spine for stenosis) Chronic Constipation Musculoskeletal Yes (spinal stenosis, oteoarthritis, r/l knee contracture) Arthritis, Chronic Back Pain, Fractures Endocrine History of Endocrine Disorders: No Endocrine Disorders: Hypothyroidsim HEENT History of HEENT Disorders: Yes HEENT Disorders: Glaucoma Loss of Vision: Bilateral Hearing Impairment: Denies Cancer No Psychosocial History of Psychiatric Problem: No Integumentary History of Skin or Integumenta: No Blood Transfusions History of Blood Disorders: No Adverse Reaction to a Blood Tr: No Family Medical History Family Hx: LUNG CANCER G8 BROTHER Myocardial infarction 19 MOTHER Review of Systems Constitutional: see HPI Physical Exam Vital Signs Vital Signs - First Documented 11/24/17 10:19 Temp 98.3 Pulse 100 Resp 36 B/P (MAP) 136/97 (110) Pulse Ox 97 O2 Delivery Non Rebreather O2 Flow Rate 15.00 Capillary Refill : Less Than 3 Seconds Height, Weight, BMI Height: 5'10.00" Weight: 150lbs. 7.0oz. [id number]; 22.6 BMI Method:Estimated General Appearance: No Apparent Distress (on the floor but noted mild distress in ED) Eyes: Bilateral Eye Normal Inspection HEENT: Moist Mucous Membranes (mildly) Neck: Non Tender, Supple Respiratory: No Accessory Muscle Use, Other (coarse) Cardiovascular: Regular Rate, Rhythm Gastrointestinal: Soft Rectal: Deferred Extremity: Normal Capillary Refill Neurologic/Psychiatric: Alert (and answering questions appropriate) Assessment/Plan Assessment and Plan 1. Possible aspiration -monitor cardiopulmonary status overnight -CXR in the am of 11/25 Admission Diagnosis 1. Possible aspiration Admission Status: Observation Reason for Inpatient Admission: monitoring of worsening pulmonary symptoms and recheck CXR in the am. ISI SENA MD Nov 24, 2017 14:58
[2017-11-24] MEDS: CATHETER FLUSH 10 ML SYR IV SCH ×2 (15:07→22:36)
[2017-11-24] MEDS: RT-ALBUTEROL/IPRATROPIUM 3 ML (DUONEB) VIAL IH SCH ×2 (15:32→19:21)
[2017-11-24 16:00] VITALS: BP 125/54
[2017-11-24] MEDS: D5 NS 1000 ML IV SOLUTION 1,000 ML IV SCH (16:50)
[2017-11-24 20:00] VITALS: BP 108/58
[2017-11-25] VITALS: BP 129/56
[2017-11-25 04:00] VITALS: BP 129/65
[2017-11-25 05:35] LABS: BASOPHILS % (AUTO) 0 % (0-10); EOSINOPHILS # (AUTO) 0.1 10^3/uL (0.0-0.3); EOSINOPHILS % (AUTO) 1 % (0-10); HEMATOCRIT 28 % (40-54); HEMOGLOBIN 9.3 G/DL (13.3-17.7); LYMPHOCYTES # (AUTO) 1.4 X 10^3 (1.0-4.0); LYMPHOCYTES % (AUTO) 12 % (12-44); MEAN CORPUSCULAR HEMOGLOBIN 30 PG (25-34); MEAN CORPUSCULAR HGB CONC 33 G/DL (32-36); MEAN CORPUSCULAR VOLUME 89 FL (80-99); MEAN PLATELET VOLUME 10.9 FL (7.4-10.4); MONOCYTES # (AUTO) 0.7 X 10^3 (0.0-1.0); MONOCYTES % (AUTO) 6 % (0-12); NEUTROPHILS # (AUTO) 9.5 X 10^3 (1.8-7.8); NEUTROPHILS % (AUTO) 81 % (42-75); PLATELET COUNT 284 10^3/uL (130-400); RED BLOOD COUNT 3.12 10^6/uL (4.35-5.85); RED CELL DISTRIBUTION WIDTH 14.4 % (10.0-14.5); WHITE BLOOD COUNT 11.7 10^3/uL (4.3-11.0)
[2017-11-25 05:59] LABS: ALBUMIN 3.1 GM/DL (3.2-4.5); BILIRUBIN,TOTAL 0.5 MG/DL (0.1-1.0); CALCIUM 9.3 MG/DL (8.5-10.1); CREATININE SERUM 1.2 MG/DL (0.60-1.30); POTASSIUM 4.2 MMOL/L (3.6-5.0); TOTAL PROTEIN 6.8 GM/DL (6.4-8.2)
[2017-11-25] MEDS: D5 NS 1000 ML IV SOLUTION 1,000 ML IV SCH ×2 (06:25→07:41)
[2017-11-25] MEDS: CATHETER FLUSH 10 ML SYR IV SCH ×3 (06:26→20:40)
[2017-11-25] MEDS: RT-ALBUTEROL/IPRATROPIUM 3 ML (DUONEB) VIAL IH SCH ×4 (06:58→20:43)
--- NOTE | 2017-11-25 07:48 | Diagnostic Imaging Report ---
Portable semierect AP chest at 423 hours. INDICATION: Aspiration. FINDINGS: The heart size is within normal limits and stable when compared to 11/24/2017. The prior study did note a parenchymal density in the right infrahilar region and raise the question of aspiration/pneumonia. That parenchymal abnormality is still evident on this study and essentially no different. The lungs are otherwise generally clear. The mediastinum is not widened. The osseous structures are intact. The orthopedic hardware overlying the mid and lower cervical spine seen previously is again evident and no different. IMPRESSION: 1. There is persistent area of increased density in the right infrahilar region. This could be secondary to aspiration/pneumonia. 2. No new abnormality has developed otherwise. Dictated by: Dictated on workstation # [id number]
[2017-11-25 08:00] VITALS: BP 116/63
--- NOTE | 2017-11-25 08:01 | Progress Note (SOAP) ---
Subjective Date Seen by a Provider: Nov 25, 2017 Time Seen by a Provider: 06:30 Subjective/Events-last exam Patient appears normal in his speech and recognizes myself. Occasional cough. No respiratory distress. Focused Exam Lactate Level 11/24/17 10:00: Lactic Acid Level 0.93 Objective Exam Vital Signs Date Time Temp Pulse Resp B/P (MAP) Pulse Ox O2 Delivery O2 Flow Rate FiO2 11/25/17 06:59 97 OxyMask 4.00 40 11/25/17 04:00 98.4 102 20 129/65 (86) 98 OxyMask 11/25/17 00:00 99.2 101 20 129/56 (80) 99 OxyMask 11/24/17 20:00 99.1 110 16 108/58 (75) 98 OxyMask 11/24/17 20:00 94 OxyMask 4.00 11/24/17 19:21 94 OxyMask 4.00 11/24/17 16:00 97.6 99 18 125/54 (77) 100 Simple Mask 11/24/17 15:33 99 OxyMask 5.00 11/24/17 13:35 96 OxyMask 10.00 11/24/17 13:35 99 20 132/90 96 Non Rebreather 8.00 11/24/17 12:54 99 OxyMask 7.00 11/24/17 10:19 98.3 100 36 136/97 (110) 97 Non Rebreather 15.00 I & O 11/25/17 07:00 Intake Total 1010 ml Output Total 600 ml Balance 410 ml Capillary Refill : Less Than 3 Seconds General Appearance: No Apparent Distress HEENT: Pharynx Normal Neck: Supple Respiratory: Other (coarse) Cardiovascular: Regular Rate, Rhythm Gastrointestinal: soft Other comments NAME: ROSALBA [facility]ITH [facility] REC#: [id number] PT STATUS: ADM Yesika : 1935 PHYSICIAN: ISI SENA MD ADMIT DATE: 11/24/17/ Draft Date of Exam:11/25/17 CHEST 1 VIEW, AP/PA ONLY Portable semierect AP chest at 423 hours. INDICATION: Aspiration. FINDINGS: The heart size is within normal limits and stable when compared to 11/24/2017. The prior study did note a parenchymal density in the right infrahilar region and raise the question of aspiration/pneumonia. That parenchymal abnormality is still evident on this study and essentially no different. The lungs are otherwise generally clear. The mediastinum is not widened. The osseous structures are intact. The orthopedic hardware overlying the mid and lower cervical spine seen previously is again evident and no different. IMPRESSION: 1. There is persistent area of increased density in the right infrahilar region. This could be secondary to aspiration/pneumonia. 2. No new abnormality has developed otherwise. Dictated on workstation # [id number] Dict: 11/25/17 0640 Trans: 11/25/17 0747 [id number] Interpreted by: SUNNY WARD MD Electronically signed by: Results Lab Laboratory Tests 11/24/17 10:00: White Blood Count 8.5, Red Blood Count 3.70L, Hemoglobin 10.9L, Hematocrit 33L, Mean Corpuscular Volume 89, Mean Corpuscular Hemoglobin 29, Mean Corpuscular Hemoglobin Concent 33, Red Cell Distribution Width 14.6H, Platelet Count 367, Mean Platelet Volume 11.9H, Neutrophils (%) (Auto) 72, Lymphocytes (%) (Auto) 16 , Monocytes (%) (Auto) 7, Eosinophils (%) (Auto) 4, Basophils (%) (Auto) 1, Neutrophils # (Auto) 6.2, Lymphocytes # (Auto) 1.4, Monocytes # (Auto) 0.6, Eosinophils # (Auto) 0.4H, Basophils # (Auto) 0.0, Prothrombin Time 13.3, INR Comment 1.0, Activated Partial Thromboplast Time 34, Sodium Level 133L, Potassium Level 4.5, Chloride Level 99, Carbon Dioxide Level 25, Anion Gap 9, Blood Urea Nitrogen 31H, Creatinine 1.38H, Estimat Glomerular Filtration Rate 49 , BUN/Creatinine Ratio 22, Glucose Level 114H, Lactic Acid Level 0.93, Calcium Level 9.7, Corrected Calcium 10.0, Total Bilirubin 0.4, Aspartate Amino Transf ( AST/SGOT) 22, Alanine Aminotransferase (ALT/SGPT) 24, Alkaline Phosphatase 75, Total Protein 7.8, Albumin 3.6 11/24/17 10:05: Urine Color YELLOW, Urine Clarity VERY CLOUDYH, Urine pH 6.5, Urine Specific [place] 1.010L, Urine Protein 2+H, Urine Glucose (UA) NEGATIVE, Urine Ketones NEGATIVE, Urine Nitrite POSITIVEH, Urine Bilirubin NEGATIVE, Urine Urobilinogen 1, Urine Leukocyte Esterase 3+H, Urine RBC (Auto) 5+H, Urine RBC >100H, Urine WBC TNTCH, Urine Crystals NONE, Urine Bacteria MODERATEH, Urine Casts NONE, Urine Mucus NEGATIVE, Urine Culture Indicated NO 11/25/17 05:14: White Blood Count 11.7H, Red Blood Count 3.12L, Hemoglobin 9.3L, Hematocrit 28L , Mean Corpuscular Volume 89, Mean Corpuscular Hemoglobin 30, Mean Corpuscular Hemoglobin Concent 33, Red Cell Distribution Width 14.4, Platelet Count 284, Mean Platelet Volume 10.9H, Neutrophils (%) (Auto) 81H, Lymphocytes (%) (Auto) 12, Monocytes (%) (Auto) 6, Eosinophils (%) (Auto) 1, Basophils (%) (Auto) 0, Neutrophils # (Auto) 9.5H, Lymphocytes # (Auto) 1.4, Monocytes # (Auto) 0.7, Eosinophils # (Auto) 0.1, Basophils # (Auto) 0.0, Sodium Level 136, Potassium Level 4.2, Chloride Level 104, Carbon Dioxide Level 23, Anion Gap 9, Blood Urea Nitrogen 32H, Creatinine 1.20, Estimat Glomerular Filtration Rate 58, BUN/ Creatinine Ratio 27, Glucose Level 95, Calcium Level 9.3, Corrected Calcium 10.0 , Total Bilirubin 0.5, Aspartate Amino Transf (AST/SGOT) 16, Alanine Aminotransferase (ALT/SGPT) 24, Alkaline Phosphatase 64, Total Protein 6.8, Albumin 3.1L Assessment/Plan Assessment/Plan Assess & Plan/Chief Complaint 1. Possible aspiration -monitor cardiopulmonary status overnight -CXR in the am of 11/25 11/25 CXR reveals persistent density -will initiate rocephin at 1gm q24hr 2. Dysphagia and on Tube feedings. -will need to check with [facility] and restart his feedings. Clinical Quality Measures Admission Status Admission Dx 1. Possible aspiration DVT/VTE Risk/Contraindication: Risk Factor Score Per Nursin RFS Level Per Nursing on Admit: 4+=Very High ISI SENA MD Nov 25, 2017 08:01
[2017-11-25] MEDS: cefTRIAXone FOR IV USE 1,000 MG in NS (IVPB) 50 ML IV SCH (09:27)
[2017-11-25] MEDS ORDERED: NON-FORMULARY MEDICATION 1 EA EA (Hydrocodone/Acetaminophen (Hydrocodone-Acetamin 5-325 mg PEG PRN (10:45)
[2017-11-25] MEDS ORDERED: NON-FORMULARY MEDICATION 1 EA EA (Polyvinyl Alcohol/Povidone (Artificial Tears Drops) 1 DR OU PRN (10:45)
[2017-11-25] MEDS ORDERED: LOPERAMIDE HCL PEG PRN (10:45)
[2017-11-25] MEDS ORDERED: ACETAMINOPHEN 325 MG TABLET PEG PRN (10:45)
[2017-11-25] MEDS ORDERED: MILK OF MAGNESIA 400 MG/5 ML 30 ML UDC PEG PRN (10:45)
[2017-11-25] MEDS ORDERED: LOPERAMIDE 2 MG (IMODIUM) CAP PEG PRN (11:00)
[2017-11-25] MEDS ORDERED: ARTIFICAL TEARS 0.4 ML UNIT DOSE (REFRESH PLUS) OU PRN (11:00)
[2017-11-25 11:52] VITALS: BP 138/88
[2017-11-25] MEDS: LORazepam 1 MG (ATIVAN) TAB PEG PRN ×2 (11:55→20:47)
[2017-11-25] MEDS: HYDROcodone/APAP 5 MG/325 MG (LORTAB) TAB PEG PRN (12:47)
[2017-11-25] MEDS: ZIPRASIDONE 40 MG (GEODON) CAP PEG SCH (12:55)
[2017-11-25] MEDS ORDERED: fentaNYL PATCH 12 MCG (DURAGESIC) TD SCH (14:30)
[2017-11-25 16:40] VITALS: BP 105/51
[2017-11-25] MEDS ORDERED: NON-FORMULARY MEDICATION 1 EA EA (Loteprednol Etabonate (Lotemax) 1 DROP) OD SCH (18:00)
[2017-11-25 20:00] VITALS: BP 106/55
[2017-11-25] MEDS: DORZOLAMIDE/TIMOLOL (COSOPT) 2-0.68% 10 ML BTL OU SCH (20:39)
[2017-11-25] MEDS: meTOprolol TARTRATE 50 MG (LOPRESSOR) TAB PEG SCH (20:39)
[2017-11-25] MEDS: MELATONIN 3 MG TABLET PEG SCH (20:39)
[2017-11-25] MEDS: FAMOTIDINE 20 MG (PEPCID) TABLET PEG SCH (20:39)
[2017-11-25] MEDS ORDERED: [UNRECOGNIZED DRUG - OTHER] OU SCH (21:00)
[2017-11-25] MEDS ORDERED: DORZOLAMIDE HCL OU SCH (21:00)
[2017-11-25] MEDS ORDERED: TIMOLOL MALEAT OU SCH (21:00)
[2017-11-25] MEDS ORDERED: NON-FORMULARY MEDICATION 1 EA EA (Melatonin 3 MG) PEG SCH (21:00)
[2017-11-25] MEDS ORDERED: NON-FORMULARY MEDICATION 1 EA EA (Famotidine (Pepcid) 20 MG) PEG SCH (21:00)
[2017-11-25] MEDS: LORazepam INJ 2 MG/ML (ATIVAN) VIAL IVP PRN (23:03)
[2017-11-26] VITALS: BP 104/51
[2017-11-26] MEDS: ZIPRASIDONE 40 MG (GEODON) CAP PEG SCH ×3 (00:15→21:50)
[2017-11-26] MEDS: CATHETER FLUSH 10 ML SYR IV SCH ×3 (03:58→21:51)
[2017-11-26 04:00] VITALS: BP 98/55
[2017-11-26] MEDS: LEVOTHYROXINE 88 MCG (LEVOTHORID) TAB PEG SCH (05:40)
[2017-11-26] MEDS: RT-ALBUTEROL/IPRATROPIUM 3 ML (DUONEB) VIAL IH SCH ×4 (06:39→20:35)
[2017-11-26] MEDS: FAMOTIDINE 20 MG (PEPCID) TABLET PEG SCH (07:45)
[2017-11-26] MEDS: HYDROcodone/APAP 5 MG/325 MG (LORTAB) TAB PEG PRN ×4 (07:45→21:50)
[2017-11-26] MEDS: cefTRIAXone FOR IV USE 1,000 MG in NS (IVPB) 50 ML IV SCH (07:46)
[2017-11-26] MEDS: ASPIRIN 81 MG CHEW (CHILDREN'S ASA) PEG SCH (07:46)
[2017-11-26] MEDS: D5 NS 1000 ML IV SOLUTION 1,000 ML IV SCH ×2 (07:46→18:19)
[2017-11-26] MEDS: meTOprolol TARTRATE 50 MG (LOPRESSOR) TAB PEG SCH ×2 (07:46→21:50)
[2017-11-26 07:47] VITALS: BP 109/58
[2017-11-26] MEDS: DORZOLAMIDE/TIMOLOL (COSOPT) 2-0.68% 10 ML BTL OU SCH ×2 (07:47→21:52)
--- NOTE | 2017-11-26 08:11 | Progress Note (SOAP) ---
Subjective Date Seen by a Provider: Nov 26, 2017 Time Seen by a Provider: 06:40 Subjective/Events-last exam Patient resting comfortably this morning. He does not appear to have any upper airway "gurgling." Focused Exam Lactate Level 11/24/17 10:00: Lactic Acid Level 0.93 Objective Exam Vital Signs Date Time Temp Pulse Resp B/P (MAP) Pulse Ox O2 Delivery O2 Flow Rate FiO2 11/26/17 07:47 77 109/58 (75) 98 Nasal Cannula 2.00 11/26/17 06:39 95 Nasal Cannula 2.00 11/26/17 04:00 96.3 74 16 98/55 (69) 99 1.50 11/26/17 00:00 96.3 76 18 104/51 (68) 98 Nasal Cannula 1.50 11/25/17 20:43 94 Nasal Cannula 2.00 11/25/17 20:00 98 Nasal Cannula 2.00 11/25/17 20:00 99.0 90 20 106/55 (72) 98 Nasal Cannula 2.00 11/25/17 16:40 97.8 105 24 105/51 (69) 99 Nasal Cannula 2.00 11/25/17 15:32 97.9 11/25/17 15:01 97.9 11/25/17 14:56 94 Nasal Cannula 2.00 11/25/17 13:15 97.9 11/25/17 12:25 97.9 11/25/17 11:52 97.9 120 20 138/88 (105) 96 Nasal Cannula 2.00 11/25/17 10:51 95 Nasal Cannula 2.00 I & O 11/26/17 07:00 Intake Total 2287 ml Output Total 950 ml Balance 1337 ml Capillary Refill : Less Than 3 Seconds General Appearance: No Apparent Distress Respiratory: Other (Coarse but no defined rales) Cardiovascular: Regular Rate, Rhythm Gastrointestinal: normal bowel sounds, soft Extremity: Normal Capillary Refill Results Lab Microbiology 11/24/17 Blood Culture - Preliminary, Resulted Staph, Coag Neg (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 Possible aspiration -monitor cardiopulmonary status overnight -CXR in the am of 11/25 11/25 CXR reveals persistent density -will initiate rocephin at 1gm q24hr 11/26 -Patient is now at day #2 Rocephin 2. Dysphagia and on Tube feedings. -will need to check with via [facility] and restart his feedings. 11/26 -Feedings by PEG tube started yesterday and it appears to be going well so far Clinical Quality Measures Admission Status Admission Dx 1. Possible aspiration DVT/VTE Risk/Contraindication: Risk Factor Score Per Nursin RFS Level Per Nursing on Admit: 4+=Very High ISI SENA MD Nov 26, 2017 08:11
[2017-11-26 11:34] VITALS: BP 109/53
[2017-11-26] MEDS: LORazepam INJ 2 MG/ML (ATIVAN) VIAL IVP PRN (14:37)
[2017-11-26 16:00] VITALS: BP 141/67
[2017-11-26 20:00] VITALS: BP 155/78
[2017-11-26] MEDS ORDERED: FAMOTIDINE 20 MG (PEPCID) TABLET PEG SCH (21:00)
[2017-11-26] MEDS: MELATONIN 3 MG TABLET PEG SCH (21:50)
[2017-11-27] MEDS: D5 NS 1000 ML IV SOLUTION 1,000 ML IV SCH (00:24)
[2017-11-27 00:30] VITALS: BP 115/58
[2017-11-27 04:00] VITALS: BP 118/58
[2017-11-27] MEDS: LORazepam INJ 2 MG/ML (ATIVAN) VIAL IVP PRN (04:15)
[2017-11-27] MEDS: CATHETER FLUSH 10 ML SYR IV SCH (05:34)
[2017-11-27] MEDS: LEVOTHYROXINE 88 MCG (LEVOTHORID) TAB PEG SCH (05:34)
[2017-11-27 06:40] LABS: BASOPHILS % (AUTO) 0 % (0-10); EOSINOPHILS # (AUTO) 0.8 10^3/uL (0.0-0.3); EOSINOPHILS % (AUTO) 10 % (0-10); HEMATOCRIT 28 % (40-54); HEMOGLOBIN 9.1 G/DL (13.3-17.7); LYMPHOCYTES # (AUTO) 0.9 X 10^3 (1.0-4.0); LYMPHOCYTES % (AUTO) 12 % (12-44); MEAN CORPUSCULAR HEMOGLOBIN 30 PG (25-34); MEAN CORPUSCULAR HGB CONC 33 G/DL (32-36); MEAN CORPUSCULAR VOLUME 92 FL (80-99); MEAN PLATELET VOLUME 12.4 FL (7.4-10.4); MONOCYTES # (AUTO) 0.7 X 10^3 (0.0-1.0); MONOCYTES % (AUTO) 9 % (0-12); NEUTROPHILS # (AUTO) 5.3 X 10^3 (1.8-7.8); NEUTROPHILS % (AUTO) 69 % (42-75); PLATELET COUNT 159 10^3/uL (130-400); RED CELL DISTRIBUTION WIDTH 13.9 % (10.0-14.5); WHITE BLOOD COUNT 7.7 10^3/uL (4.3-11.0)
[2017-11-27] MEDS: RT-ALBUTEROL/IPRATROPIUM 3 ML (DUONEB) VIAL IH SCH ×2 (07:24→10:23)
--- NOTE | 2017-11-27 07:49 | Discharge Summary ---
Diagnosis/Chief Complaint Date of Admission Nov 25, 2017 at 12:08 Date of Discharge November 27, 2017 Discharge Date: Nov 27, 2017 Discharge Time: 07:45 Admission Diagnosis Admission Diagnosis 1. Aspiration pneumonia Discharge Diagnosis 1. Aspiration pneumonia Reason Hospital Visit 82 yo male presents to ED with possible aspiration. He apparently started having SOB with "gurgly" sounds with breathing. He had been in his usual state of health. Discharge Summary Hospital Course Hospital Course Following admission patient was monitored for the first 24 hrs to see if repiratory condition worsened. CXR day after admission possible aspiration pneumonia. He was started on rocephin 1gm IV q 24 hours at that time. Jevity restarted on Nov 25 and he tolerated well. Labs Laboratory Tests 11/24/17 10:00: Red Blood Count 3.70L, Hemoglobin 10.9L, Hematocrit 33L, Red Cell Distribution Width 14.6H, Mean Platelet Volume 11.9H, Eosinophils # (Auto) 0.4H, Sodium Level 133L, Blood Urea Nitrogen 31H, Creatinine 1.38H, Glucose Level 114H 11/24/17 10:05: Urine Clarity VERY CLOUDYH, Urine Specific [place] 1.010L, Urine Protein 2+H, Urine Nitrite POSITIVEH, Urine Leukocyte Esterase 3+H, Urine RBC (Auto) 5+H, Urine RBC >100H, Urine WBC TNTCH, Urine Bacteria MODERATEH 11/25/17 05:14: Red Blood Count 3.12L, Hemoglobin 9.3L, Hematocrit 28L, Mean Platelet Volume 10.9H, Blood Urea Nitrogen 32H, White Blood Count 11.7H, Neutrophils (%) (Auto) 81H, Neutrophils # (Auto) 9.5H, Albumin 3.1L 11/27/17 05:24: Red Blood Count 3.00L, Hemoglobin 9.1L, Hematocrit 28L, Mean Platelet Volume 12.4H, Eosinophils # (Auto) 0.8H, Lymphocytes # (Auto) 0.9L Procedures None. Discharge Physical Examination Allergies: Coded Allergies: No Known Drug Allergies (Unverified , 10/25/12) Vitals & I&Os Vital Signs Date Time Temp Pulse Resp B/P (MAP) Pulse Ox O2 Delivery O2 Flow Rate FiO2 11/27/17 07:24 98 Nasal Cannula 2.00 11/27/17 04:00 98.6 75 18 118/58 (78) 11/25/17 06:59 40 General Appearance: No Acute Distress Respiratory: Normal Air Movement Cardiovascular: Regular Rate Abdominal: Soft Discharge Home Medications Reviewed and agree with Discharge Medication list on patient's Discharge Instruction sheet Instructions to Patient/Family Please see electronic discharge instructions given to patient. Clinical Quality Measures DVT/VTE Risk/Contraindication: Risk Factor Score Per Nursin RFS Level Per Nursing on Admit: 4+=Very High ISI SENA MD Nov 27, 2017 07:49
[2017-11-27] MEDS ORDERED: CEFP500T4 PO (07:51)
--- NOTE | 2017-11-27 07:54 | Discharge Inst-Skilled Nursing ---
Discharge Inst-Skilled NF Patient Instructions Patient Problems: Aspiration pneumonia Patient Instructions: take cefprozil 500mg bid for 7 additional days Consult/Follow Up/Orders Follow Up Appt.: Dr Sena in 2 weeks. Skilled NF Admit to: [facility] Certification ([facility]) I certify that SNF services are required to be given on an inpatient basis because of the above named patient's need for longterm care on a continuing basis for the conditions(s) for which he/she was receiving inpatient hospital services prior to his/her transfer to the [facility]. [facility] Facility Order: Nursing Services, Hotel Sales Manager-Evaluate & Treat, Physical Therapy-Evaluate & Treat, Speech Language-Evaluate & Treat Discharge Diet: Other Diet (Jevity 237cc (5x a day) followed by 50 cc flush of water) Daily Activity as Tolerated: No (see Jevity) New & Resume Previous Orders Isi Sena Nov 27, 2017 07:53 ISI SENA MD Nov 27, 2017 07:54
[2017-11-27] MEDS: ZIPRASIDONE 40 MG (GEODON) CAP PEG SCH (07:55)
[2017-11-27] MEDS: cefTRIAXone FOR IV USE 1,000 MG in NS (IVPB) 50 ML IV SCH (07:56)
[2017-11-27] MEDS: meTOprolol TARTRATE 50 MG (LOPRESSOR) TAB PEG SCH (07:56)
[2017-11-27] MEDS: ASPIRIN 81 MG CHEW (CHILDREN'S ASA) PEG SCH (07:56)
[2017-11-27] MEDS: HYDROcodone/APAP 5 MG/325 MG (LORTAB) TAB PEG PRN ×2 (07:56→13:31)
[2017-11-27] MEDS: DORZOLAMIDE/TIMOLOL (COSOPT) 2-0.68% 10 ML BTL OU SCH (07:57)
[2017-11-27 08:00] VITALS: BP 114/57
[2017-11-27] MEDS ORDERED: FLU QUADRIvalent (5+ YOA) 2018-2019 (AFLURIA) 0.5 ML IM ONE (10:30)
[2017-11-27 12:00] VITALS: BP 134/61
--- NOTE | 2017-11-27 12:24 | CONSULTATION REPORT ---
DATE OF SERVICE: 11/27/2017 ATTENDING PHYSICIAN: Bipin Baldwin MD. SUMMARY: After reviewing the patient's records, interviewing the nursing staff, the patient is a very poor historian. HISTORY OF PRESENT ILLNESS: This is an 82-year-old white man, who was admitted with a possible aspiration pneumonia and has been doing well since admission on the . MEDICATIONS: Medication list was reviewed and he is on aspirin, but no other blood thinners. ALLERGIES: He has no known drug allergies. SOCIAL HISTORY: He is a former smoker, no alcohol, no drugs. PAST SURGICAL HISTORY: He had a corneal transplant, mastoidectomy, eyelid reduction, left total knee replacement and neck surgery and a PEG tube, cholecystectomy, joint replacement and two coronary stents, one couple of years ago. PAST MEDICAL HISTORY: Coronary artery disease, hyperlipidemia and hypertension and dementia he is having chronic Manzano catheter because of neuro draining bladder and retention secondary to spinal stenosis and osteoarthritis and hypothyroidism. No history of cancer. FAMILY HISTORY: Family history of lung cancer and [place]. PHYSICAL EXAMINATION: VITAL SIGNS: Per chart. GENERAL: Well-nourished and well developed in no acute distress. HEAD: Head is normocephalic. NECK: Supple. No bruits. EENT: Unremarkable. CHEST: Nontender and some rhonchi bilaterally. HEART: Regular rate and rhythm, no murmur. ABDOMEN: Soft and nontender. EXTREMITIES: Lower extremities, no edema or cyanosis. GENITOURINARY: The phallus is all split through the urethra to the level of the mid shaft from the catheter I believe unless the patient has also history hypospadias as well; hard to obtain. RECTAL: Deferred. IMPRESSION: 1. Iatrogenic urethral injury secondary to Manzano catheter. 2. Neurogenic bladder. 3. Urinary retention secondary to atonic bladder secondary to spinal stenosis. 4. Multiple medical problems secondary to history. PLAN: We will let the patient go to the prison today. We will arrange for them to bring him back as an outpatient next week to perform a suprapubic cystostomy tube placement. We will stop his aspirin tomorrow and we will have the prison get the consent from his legal guardian. Job ID: [id number] DocumentID: [id number] Dictated Date: 11/27/2017 11:48:14 Infant Babysitter Date: 11/27/2017 12:23:21 Dictated By: CÉSAR RAMOS MD
[2017-11-27 13:45] VITALS: BP 134/61
[2017-11-28] MEDS ORDERED: FLU QUADRIvalent (5+ YOA) 2018-2019 (AFLURIA) 0.5 ML IM ONE (11:13)
[2017-11-28] MEDS ORDERED: FENTANYL PATCH REMOVAL TP SCH (14:29)
[2017-12-04] MEDS ORDERED: ZPR40C PO (08:42)
[2017-12-04] MEDS ORDERED: ASPI-999 PO (08:42)
== END 2017-11-27 13:45 | DRG 179 ==
LOC: EDUNIT# 10:01 → ER 10:02 → UNDOADMOB 12:57 → 4TH 12:57 → OBSVTOIN 11-25 12:08 → INTOOBSV 11-25 12:08 → UNDODISIN 11-27 13:45
PROVIDERS: ADMIT Family Medicine; ATTEND Family Medicine
DX: J69.0 Pneumonitis due to inhalation of food and vomit (principal); R13.10 Dysphagia, unspecified; Z93.1 Gastrostomy status; I25.10 Atherosclerotic heart disease of native coronary artery without angina pectoris; I10 Essential (primary) hypertension; E78.00 Pure hypercholesterolemia, unspecified; F03.90 Unspecified dementia, unspecified severity, without behavioral disturbance, psychotic disturbance, mood disturbance, and anxiety; E03.9 Hypothyroidism, unspecified; M19.91 Primary osteoarthritis, unspecified site; H40.9 Unspecified glaucoma; K59.09 Other constipation; Z87.891 Personal history of nicotine dependence; Z95.5 Presence of coronary angioplasty implant and graft; Z96.652 Presence of left artificial knee joint; Y92.129 Unspecified place in nursing home as the place of occurrence of the external cause
CPT/HCPCS: 36415; 71045; 80053; 81000; 83605; 85025; 85610; 85730; 87040; 87077; 87088; 87186; 94640; 94760; G0378

== ENCOUNTER 2017-12-01 13:45 | Outpatient (CLI) | payer MEDICARE, OTHER ==
[~2017-12-01] VITALS: Ht 175.3 cm; Wt 77.8 kg
[~2017-12-01 13:45] MED LIST changes: +CEFP500T4 PO; +FEN12TD TD; +HYDR-3812 PEG; +LOPE-134 PEG; +NYST1000 TOP; +POLY15DR14 OU; +ZIPR40CA26 PEG; +[UNRECOGNIZED DRUG - CODE] TP
[2017-12-04] MEDS ORDERED: ASPI-999 PO (08:42)
[2017-12-04] MEDS ORDERED: ZPR40C PO (08:42)
== END 2017-12-01 16:00 | disposition home or self-care (01) ==
LOC: PREOP 13:45
PROVIDERS: ATTEND Urology
DX: Z01.818 Encounter for other preprocedural examination (principal)

== ENCOUNTER 2017-12-19 06:25 | Day surgery (SDC) | payer MEDICARE, OTHER ==
[~2017-12-19] VITALS: Ht 175.3 cm; Wt 77.8 kg
[2017-12-19] VITALS (7 sets, daily range): BP systolic 118–162; BP diastolic 76–109
[~2017-12-19 06:25] MED LIST changes: +ASPI-999 PO; +ZPR40C PO
--- NOTE | 2017-12-19 07:15 | Progress Note-Pre Operative ---
Pre-Operative Progress Note H&P Reviewed The H&P was reviewed, patient examined and no changes noted. Date Seen by Provider: Dec 19, 2017 Time Seen by Provider: 07:14 Date H&P Reviewed: Dec 19, 2017 Time H&P Reviewed: 07:14 Pre-Operative Diagnosis: NEUROGENIC BLADDER WITH URINE RETENTION CÉSAR RAMOS MD Dec 19, 2017 7:15 am
[2017-12-19] MEDS ORDERED: LACTATED RINGERS 1,000 ML IV PRN ×2 (07:32)
[2017-12-19] MEDS ORDERED: VANCOMYCIN INJECTION 1,000 MG in NS (IVPB) 250 ML IV ONE (07:45)
[2017-12-19] MEDS ORDERED: cefTRIAXone FOR IV USE 1,000 MG in NS (IVPB) 50 ML IV ONE (07:45)
[2017-12-19] MEDS ORDERED: BUPIVACAINE SPINAL 0.75% (SENSORCAINE) 2 ML AMP ONE (09:46)
[2017-12-19] MEDS ORDERED: KETAMINE HCL 100 MG/ML 5 ML VIAL ONE (09:46)
[2017-12-19] MEDS ORDERED: GENTAMICIN 40 MG/ML 2 ML INJ SDV ONE (09:47)
[2017-12-19] MEDS ORDERED: LIDOCAINE PF 2% 5 ML (XYLOCAINE) VIAL ONE (09:55)
[2017-12-19] MEDS ORDERED: GLYCOPYRROLATE 0.2 MG/ML (ROBINUL) 2 ML VIAL ONE (10:27)
--- NOTE | 2017-12-19 10:28 | Progress Note-Post Operative ---
Post-Operative Progess Note Surgeon (s)/Cloth Measurer (s) Surgeon CÉSAR RAMOS MD Cloth Measurer: BARTOLO Pre-Operative Diagnosis NEUROGENIC BLADDER WITH URINE RETENTION Post-Operative Diagnosis SAME Procedure & Operative Findings Date of Procedure 12/19/17 Procedure Performed/Findings INSERTION OF SUPRAPUBIC TUBE Anesthesia Type GENERAL Estimated Blood Loss Estimated blood loss (mL): NEGLIGIBLE Specimens/Packing Specimens Removed NONE Packing: NONE CÉSAR RAMOS MD Dec 19, 2017 10:28 am
[2017-12-19] MEDS ORDERED: PHENYLEPHRINE 100 MCG/ML 10 ML (ANESTHESIA) SYR ONE (10:38)
--- NOTE | 2017-12-19 11:20 | Discharge Inst-Urology ---
Discharge Inst-Urology Discharge Medications New, Converted, or Re-newed RX: RX on Chart Patient Instructions/Follow Up Plan Please make appointment to been seen in office in 3 weeks. Reinforce dressing PRN In 2 weeks, DC dwayne and silk suture around SP tube In one week may remove dressing and continue securing SP tube at all times In 1 week, if no bleeding, may resume ASA SECURE SP TUBE AT ALL TIMES Tomorrow, may start baths Keep bowels soft and moving. Increase oral fluids for 48 hours and then as needed. Diet and Activity as tolerated. If questions or concerns contact your physician Or seek help at emergency department. CÉSAR RAMOS MD Dec 19, 2017 11:20 am
[2017-12-19] MEDS ORDERED: HYDROmorphone 2 MG/ML VIAL (DILAUDID) IV ONE (11:30)
[2017-12-19] MEDS ORDERED: ONDANSETRON 4 MG/2 ML (SDV) Z0FRAN IVP PRN (11:30)
--- NOTE | 2017-12-19 12:16 | Anesthesia-General Post-Op ---
General Patient Condition Mental Status/LOC: Same as Preop Cardiovascular: Satisfactory Nausea/Vomiting: Absent Respiratory: Satisfactory Pain: Controlled Complications: Absent Post Op Complications Complications None Follow Up Care/Instructions Patient Instructions None needed. Anesthesia/Patient Condition Patient Condition Patient is doing well, no complaints, stable vital signs, no apparent adverse anesthesia problems. No complications reported per nursing. GARCIA ESTRADA CRNA Dec 19, 2017 12:16
[2017-12-19] MEDS ORDERED: ACHD5005 PO (14:06)
[2017-12-19] MEDS ORDERED: CEPH-507 PO (14:06)
--- NOTE | 2017-12-19 19:59 | OPERATIVE REPORT ---
DATE OF SERVICE: 12/19/2017 PREOPERATIVE DIAGNOSIS: Neurogenic bladder with urinary retention. POSTOPERATIVE DIAGNOSIS: Neurogenic bladder with urinary retention. OPERATION PERFORMED: Insertion of suprapubic tube. SURGEON: Roberto Carlos Ramos MD FAMILY EDUCATOR: Dr. Hastings. ANESTHESIA: Spinal. COMPLICATIONS: None. DESCRIPTION OF PROCEDURE: Under satisfactory spinal anesthesia, the patient in as much as possible supine position was because of his contracture and his positioning. The Manzano catheter was filled with 400 mL of antibiotic solution of fluid and the catheter was clamped. An incision was made in the midline from the symphysis pubis to a few centimeters above cutting through the skin, subcutaneous tissue and fascia. Midline was identified. A self-retaining retractor was applied. Catheter was identified and confirmed by the needle and syringe drawing fluid. A stab wound was performed. A 22-Portuguese 2-way 5 mL balloon catheter was inserted. The balloon inflated to 10 mL and held snugly against the anterior wall of the bladder. Clear fluid was drained. There was no need for suture on the catheter. There was no reason for any drain. Hemostasis was complete. Closure was performed in layer. Muscle was approximated with a few interrupted 3-0 plain. The skin with dwayne. The suprapubic tube was secured in position with a 2-0 silk suture. Dressing was applied. The suprapubic tube was carefully secured. Estimated blood loss was negligible. Needle, sponge, and instruments correct x2. The patient tolerated the procedure and anesthesia well and was sent to recovery room in stable condition after removing the urethral catheter. Job ID: [id number] DocumentID: [id number] Dictated Date: 12/19/2017 11:23:05 Farm Manager Date: 12/19/2017 19:58:07 Dictated By: ROBERTO CARLOS RAMOS MD [facility]
== END 2017-12-19 14:35 ==
LOC: SDC 06:25
PROVIDERS: ATTEND Urology
DX: N31.9 Neuromuscular dysfunction of bladder, unspecified (principal); R33.8 Other retention of urine; I25.10 Atherosclerotic heart disease of native coronary artery without angina pectoris; I10 Essential (primary) hypertension; F03.90 Unspecified dementia, unspecified severity, without behavioral disturbance, psychotic disturbance, mood disturbance, and anxiety; Z87.891 Personal history of nicotine dependence; Z79.82 Long term (current) use of aspirin; Z79.899 Other long term (current) drug therapy
CPT/HCPCS: 87081

== ENCOUNTER 2018-02-13 10:43 | Emergency (ER) | payer MEDICARE, OTHER ==
[~2018-02-13] VITALS: Ht 182.9 cm; Wt 72.6 kg
[~2018-02-13 10:43] MED LIST changes: +ACHD5005 PO; +CEPH-507 PO
[2018-02-13 12:04] LABS: BILIRUBIN,URINE NEGATIVE (NEGATIVE); CLARITY,URINE BLOODY; COLOR,URINE RED; GLUCOSE, URINE (UA) NEGATIVE (NEGATIVE); KETONES,URINE 1+ (NEGATIVE); LEUKOCYTE ESTERASE ,URINE 3+ (NEGATIVE); NITRITE,URINE POSITIVE (NEGATIVE); PH,URINE 7 (5-9); PROTEIN,URINE 3+ (NEGATIVE); UROBILINOGEN,URINE NORMAL (NORMAL)
[2018-02-13 12:22] LABS: BACTERIA,URINE MODERATE /HPF; RBC,URINE TNTC /HPF; WBC,URINE 25-50 /HPF
[2018-02-13] MEDS ORDERED: SULF1TAB35 PO (12:30)
--- NOTE | 2018-02-13 12:30 | ED GU-Male ---
General Chief Complaint: -Male Stated Complaint: BLOOD IN URINE Nursing Triage Note: Patient was brought in by staff from [facility] with cc of blood in urine. Pt has joe cath in with blood in urine. Staff stated they don't know how long this has been going on, but he did receive chest xray and blood work yesterday which did not show pneumonia. Source: patient Exam Limitations: no limitations History of Present Illness Date Seen by Provider: Feb 13, 2018 Time Seen by Provider: 11:05 Initial Comments Patient is an 82-year-old male who is brought to the emergency room by [facility] [place] staff for complaints of blood in his urine. The patient has an indwelling suprapubic catheter and senior living staff is unsure of when the blood in the urine started. He had blood work and a routine chest x-ray that was normal but they did not check a urine. The patient is alert for his baseline. Timing/Duration: yesterday Associated Symptoms: other (hematuria) Allergies and Home Medications Allergies Coded Allergies: No Known Drug Allergies (Unverified , 10/25/12) Home Medications Acetaminophen 325 Mg Tablet, 650 MG PEG Q4H PRN for TEMPATURE OR MILD PAIN, ( Reported) Cephalexin 500 Mg Capsule, 500 MG PO BID Prescribed by: DEDRA GABRIEL on 12/19/17 1406 Dorzolamide HCl/Timolol Maleat 10 Ml Drops, 1 DROP OU BID, (Reported) Famotidine 20 Mg Tablet, 20 MG PEG BID, (Reported) Hydrocodone Bit/Acetaminophen 1 Tab Tab, 1-2 TAB PO Q6H PRN for PAIN-MODERATE Prescribed by: DEDRA GABRIEL on 12/19/17 1406 Hydrocodone/Acetaminophen 1 Each Tablet, 1 TAB PEG Q6H PRN for BREAKTHROUGH PAIN , (Reported) Levothyroxine Sodium 88 Mcg Tablet, 88 MCG PEG DAILY, (Reported) Loperamide HCl 2 Mg Tablet, 2-4 MG PEG Q8H PRN for LOOSE STOOLS, (Reported) Lorazepam 1 Mg Tablet, 1 MG PEG Q4H PRN for AGITATION, (Reported) Loteprednol Etabonate 5 Gm Drops.gel, 1 DROP OD 1800, (Reported) Melatonin 3 Mg Tablet, 3 MG PEG HS, (Reported) Metoprolol Tartrate 50 Mg Tablet, 50 MG PEG BID, (Reported) Nystatin 100,000 Unit/1 Ml Oral.susp, TOP 5XD, (Reported) SWAB ONTON TONGUE 5 TIMES A DAY FOR MOUTH SORENESS Polyvinyl Alcohol/Povidone 15 Ml Drops, 1 DROP OU QID PRN for DRY EYES, ( Reported) Sulfamethoxazole/Trimethoprim 1 Each Tablet, 1 EACH PO BID Prescribed by: BASHIR MAYBERRY on 02/13/18 1230 Tramadol HCl 50 Mg Tablet, 50 MG PEG Q6H PRN for PAIN-MODERATE, (Reported) Ziprasidone 40 Mg Cap, 40 MG PO Q12H, (Reported) Patient Home Medication List Home Medication List Reviewed: Yes Review of Systems Review of Systems Constitutional: no symptoms reported, see HPI Genitourinary: see HPI, hematuria All Other Systemes Reviewed Negative Unless Noted: Yes Past Jhugojz-Jqgdpq-Yexket Hx Past Med/Social Hx: Reviewed Nursing Past Med/Soc Hx Patient Social History Alcohol Use: Denies Use Recreational Drug Use: No Type Used: Cigarettes Former Smoker, Quit: Mar 11, 1989 2nd Hand Smoke Exposure: No Recent Foreign Travel: No Contact w/Someone Who Travel: No Recent Infectious Disease Expo: No Recent Hopitalizations: Yes Physical Abuse: No Sexual Abuse: No Mistreated: No Fear: No Immunizations Up To Date Date of Pneumonia Vaccine: Nov 12, 2015 Date of Influenza Vaccine: Dec 06, 2015 Seasonal Allergies Seasonal Allergies: No Past Medical History Surgeries: Yes (CORNEA TRANSPLANT, MASTOIDECTOMY, eyelid reduction, L TKR, neck , PEG tube) Gallbladder, Joint Replacement, Orthopedic Respiratory: Yes (hx of aspiration pneumonia) Cardiac: Yes (STENTS X2-LAST ONE COUPLE YEARS AGO) Coronary Artery Disease, High Cholesterol, Hypertension Neurological: Yes (dysphagia) Dementia Reproductive Disorders: No Sexually Transmitted Disease: No HIV/AIDS: No Genitourinary: Yes (joe cath since having sx on cervical spin for stenosis, kidney failure) UTI-Chronic Gastrointestinal: Yes (peg tube placement since having sx on cervical spine for stenosis) Chronic Constipation Musculoskeletal: Yes (spinal stenosis, oteoarthritis, r/l knee contracture) Arthritis, Chronic Back Pain, Fractures Endocrine: No Hypothyroidsim HEENT: Yes Glaucoma Loss of Vision: Bilateral Hearing Impairment: Denies Cancer: No Psychosocial: No Integumentary: No Blood Disorders: No Adverse Reaction/Blood Tranf: No Family Medical History Reviewed Nursing Family Hx LUNG CANCER G8 BROTHER Myocardial infarction 19 MOTHER Physical Exam Vital Signs Vital Signs - First Documented 02/13/18 11:05 Temp 96.5 Pulse 58 Resp 20 B/P (MAP) 103/55 (71) Pulse Ox 99 O2 Delivery Room Air Capillary Refill : Less Than 3 Seconds Height, Weight, BMI Height: 6'0" Weight: 160lbs. 8.0oz. [id number]; 25.3 BMI Method:Estimated General Appearance: WD/WN, no apparent distress Neck: non-tender, full range of motion, supple, normal inspection Cardiovascular: normal peripheral pulses, regular rate, rhythm, no edema, no gallop, no JVD, no murmur Respiratory: chest non-tender, lungs clear, normal breath sounds, no respiratory distress, no accessory muscle use Gastrointestinal: normal bowel sounds, non tender, soft, no organomegaly, no pulsatile mass, other (suprapubic catheter in place) Neurologic/Psychiatric: alert, oriented x 3 Skin: normal color, warm/dry Progress/Results/Core Measures Suspected Sepsis Recent Fever Within 48 Hours: No Infection Criteria Present: None New/Unexplained Altered Menta: No Sepsis Screen: No Definite Risk SIRS Temperature:96.5 Pulse: 58 Respiratory Rate: 20 Blood Pressure 103 /55 Mean: 71 Results/Orders Lab Results Laboratory Tests Test 02/13/18 11:54 Range/Units Urine Color RED H Urine Clarity BLOODY H Urine pH 7 5-9 Urine Specific [place] 1.010 L 1.016-1.022 Urine Protein 3+ H NEGATIVE Urine Glucose (UA) NEGATIVE NEGATIVE Urine Ketones 1+ H NEGATIVE Urine Nitrite POSITIVE H NEGATIVE Urine Bilirubin NEGATIVE NEGATIVE Urine Urobilinogen NORMAL NORMAL MG/DL Urine Leukocyte Esterase 3+ H NEGATIVE Urine RBC (Auto) 5+ H NEGATIVE Urine RBC TNTC H /HPF Urine WBC 25-50 H /HPF Urine Squamous Epithelial Cells NONE /HPF Urine Crystals NONE /LPF Urine Bacteria MODERATE H /HPF Urine Casts NONE /LPF Urine Mucus NEGATIVE /LPF Urine Culture Indicated YES Micro Results Microbiology 02/13/18 Urine Culture - Preliminary, Resulted Staphylococcus aureus Enterococcus faecalis My Orders Orders - BASHIR MAYBERRY Ua Culture If Indicated (02/13/18 11:23) Urine Culture (02/13/18 11:54) Vital Signs/I&O 02/13/18 02/13/18 11:05 12:34 Temp 96.5 96.5 Pulse 58 66 Resp 20 20 B/P (MAP) 103/55 (71) 152/77 (102) Pulse Ox 99 99 O2 Delivery Room Air Room Air Capillary Refill : Less Than 3 Seconds Blood Pressure Mean: 71 Departure Impression Primary Impression: Urinary tract infection Additional Impression: Hematuria Disposition: HOME, SELF-CARE Condition: Stable/Unchanged Departure-Patient Inst. Decision time for Depature: 12:27 Referrals: ISI SENA MD (PCP/Family) Primary Care Physician Patient Instructions: Joe Catheter, Male, Urinary Tract Infection, Adult (DC) Add. Discharge Instructions: Take medication as directed. Drink lots of clear liquids. Follow up with Dr. Sena with in 1 week for a recheck. Return back to the emergency room for any worsening symptoms or concerns as needed. All discharge instructions reviewed with patient and/or family. Voiced understanding. Scripts Sulfamethoxazole/Trimethoprim (Bactrim Ds Tablet) 1 Each Tablet 1 EACH PO BID for 7 Days, #14 TAB Prov: BASHIR MAYBERRY 02/13/18 BASHIR MAYBERRY Feb 13, 2018 12:30
[2018-02-13 12:34] VITALS: BP 152/77
== END 2018-02-13 12:34 | disposition home or self-care (01) ==
LOC: EDUNIT# 10:43 → ER 10:44
DX: N39.0 Urinary tract infection, site not specified (principal); I25.10 Atherosclerotic heart disease of native coronary artery without angina pectoris; E78.00 Pure hypercholesterolemia, unspecified; I10 Essential (primary) hypertension; F03.90 Unspecified dementia, unspecified severity, without behavioral disturbance, psychotic disturbance, mood disturbance, and anxiety; E03.9 Hypothyroidism, unspecified; Z87.19 Personal history of other diseases of the digestive system; Z82.49 Family history of ischemic heart disease and other diseases of the circulatory system; Z80.1 Family history of malignant neoplasm of trachea, bronchus and lung; Z87.440 Personal history of urinary (tract) infections; Z96.0 Presence of urogenital implants; Z87.891 Personal history of nicotine dependence; Z94.7 Corneal transplant status; Z90.89 Acquired absence of other organs; Z96.652 Presence of left artificial knee joint; Z87.01 Personal history of pneumonia (recurrent); Z95.5 Presence of coronary angioplasty implant and graft
CPT/HCPCS: 81000; 87077; 87088; 99283

== ENCOUNTER 2018-02-26 11:19 | Emergency (ER) | payer MEDICARE, OTHER ==
[~2018-02-26] VITALS: Ht 180.3 cm; Wt 81.6 kg
[~2018-02-26 11:19] MED LIST changes: +SULF1TAB35 PO
--- NOTE | 2018-02-26 11:25 | ED General ---
General Stated Complaint: UNRESPONSIVE Source of Information: Patient Exam Limitations: No Limitations History of Present Illness Date Seen by Provider: Feb 26, 2018 Time Seen by Provider: 11:23 Initial Comments To ER per [facility] with reports of about a 5 minute episode of unresponsiveness. halfway staff reported that he was unresponsive to any stimuli, they checked a blood pressure and initially found it to be 69/44 then 70s systolic. EMS arrived and found to be responsive but with a blood pressure of about 113 systolic. According to [facility] staff he is typically hypertensive. Patient at this time or has no complaints. He was recently treated for urinary tract infection and finished antibiotics for that. He does have a chronic indwelling Joe catheter. Timing/Duration: 1-2 Days Severity: Moderate Allergies and Home Medications Allergies Coded Allergies: No Known Drug Allergies (Unverified , 10/25/12) Home Medications Acetaminophen 325 Mg Tablet, 650 MG PEG Q4H PRN for TEMPATURE OR MILD PAIN, ( Reported) Ampicillin Trihydrate 500 Mg Capsule, 500 MG PO TID Prescribed by: REJI HAGER on 02/26/18 1207 Cephalexin 500 Mg Capsule, 500 MG PO BID Prescribed by: DEDRA GABRIEL on 12/19/17 1406 Dorzolamide HCl/Timolol Maleat 10 Ml Drops, 1 DROP OU BID, (Reported) Famotidine 20 Mg Tablet, 20 MG PEG BID, (Reported) Hydrocodone Bit/Acetaminophen 1 Tab Tab, 1-2 TAB PO Q6H PRN for PAIN-MODERATE Prescribed by: DEDRA GABRIEL on 12/19/17 1406 Hydrocodone/Acetaminophen 1 Each Tablet, 1 TAB PEG Q6H PRN for BREAKTHROUGH PAIN , (Reported) Levothyroxine Sodium 88 Mcg Tablet, 88 MCG PEG DAILY, (Reported) Loperamide HCl 2 Mg Tablet, 2-4 MG PEG Q8H PRN for LOOSE STOOLS, (Reported) Lorazepam 1 Mg Tablet, 1 MG PEG Q4H PRN for AGITATION, (Reported) Loteprednol Etabonate 5 Gm Drops.gel, 1 DROP OD 1800, (Reported) Melatonin 3 Mg Tablet, 3 MG PEG HS, (Reported) Metoprolol Tartrate 50 Mg Tablet, 50 MG PEG BID, (Reported) Nystatin 100,000 Unit/1 Ml Oral.susp, TOP 5XD, (Reported) SWAB ONTON TONGUE 5 TIMES A DAY FOR MOUTH SORENESS Polyvinyl Alcohol/Povidone 15 Ml Drops, 1 DROP OU QID PRN for DRY EYES, ( Reported) Sulfamethoxazole/Trimethoprim 1 Each Tablet, 1 EACH PO BID Prescribed by: BASHIR MAYBERRY on 02/13/18 1230 Tramadol HCl 50 Mg Tablet, 50 MG PEG Q6H PRN for PAIN-MODERATE, (Reported) Ziprasidone 40 Mg Cap, 40 MG PO Q12H, (Reported) Patient Home Medication List Home Medication List Reviewed: Yes Review of Systems Review of Systems Constitutional: see HPI EENTM: see HPI Respiratory: no symptoms reported Cardiovascular: no symptoms reported Genitourinary: no symptoms reported Musculoskeletal: no symptoms reported Skin: no symptoms reported Psychiatric/Neurological: No Symptoms Reported Hematologic/Lymphatic: No Symptoms Reported Immunological/Allergic: no symptoms reported Past Qxjmhng-Taitqp-Zmuzdn Hx Patient Social History Type Used: Cigarettes Former Smoker, Quit: Mar 11, 1989 2nd Hand Smoke Exposure: No Recent Foreign Travel: No Contact w/Someone Who Travel: No Recent Hopitalizations: Yes Immunizations Up To Date Date of Pneumonia Vaccine: Nov 12, 2015 Date of Influenza Vaccine: Dec 06, 2015 Seasonal Allergies Seasonal Allergies: No Past Medical History Surgeries: Yes (CORNEA TRANSPLANT, MASTOIDECTOMY, eyelid reduction, L TKR, neck , PEG tube) Gallbladder, Joint Replacement, Orthopedic Respiratory: Yes (hx of aspiration pneumonia) Cardiac: Yes (STENTS X2-LAST ONE COUPLE YEARS AGO) Coronary Artery Disease, High Cholesterol, Hypertension Neurological: Yes (dysphagia) Dementia Reproductive Disorders: No Sexually Transmitted Disease: No HIV/AIDS: No Genitourinary: Yes (joe cath since having sx on cervical spin for stenosis, kidney failure) UTI-Chronic Gastrointestinal: Yes (peg tube placement since having sx on cervical spine for stenosis) Chronic Constipation Musculoskeletal: Yes (spinal stenosis, oteoarthritis, r/l knee contracture) Arthritis, Chronic Back Pain, Fractures Endocrine: No Hypothyroidsim HEENT: Yes Glaucoma Loss of Vision: Bilateral Hearing Impairment: Denies Cancer: No Psychosocial: No Integumentary: No Blood Disorders: No Adverse Reaction/Blood Tranf: No Family Medical History LUNG CANCER G8 BROTHER Myocardial infarction 19 MOTHER Physical Exam Vital Signs Vital Signs - First Documented 02/26/18 12:07 Temp 96.0 Pulse 86 Resp 12 B/P (MAP) 113/64 (80) Pulse Ox 98 Capillary Refill : Height, Weight, BMI Height: 6'0" Weight: 160lbs. 8.0oz. [id number]; 25.3 BMI Method:Estimated General Appearance: No Apparent Distress, WD/WN, Chronically ill Eyes: Bilateral Eye Normal Inspection, Bilateral Eye PERRL, Bilateral Eye EOMI Neck: Full Range of Motion, Normal Inspection Respiratory: No Accessory Muscle Use, No Respiratory Distress, Rhonci Cardiovascular: Regular Rate, Rhythm, Normal Peripheral Pulses Gastrointestinal: Normal Bowel Sounds, Non Tender, Soft Extremity: Other (contracture right arm) Neurologic/Psychiatric: Alert Skin: Normal Color, Warm/Dry Focused Exam Lactate Level 02/26/18 11:43: Lactic Acid Level 1.10 Lactic Acid Level Progress/Results/Core Measures Suspected Sepsis SIRS Temperature: Pulse: Respiratory Rate: Laboratory Tests 02/26/18 11:22: White Blood Count 8.7 Blood Pressure / Mean: 02/26/18 11:43: Lactic Acid Level 1.10 Laboratory Tests 02/26/18 11:22: Creatinine 1.24, Platelet Count 292, Total Bilirubin 0.7 Results/Orders Lab Results Laboratory Tests Test 02/26/18 11:22 02/26/18 11:43 Range/Units White Blood Count 8.7 4.3-11.0 10^3/uL Red Blood Count 3.60 L 4.35-5.85 10^6/uL Hemoglobin 11.0 L 13.3-17.7 G/DL Hematocrit 33 L 40-54 % Mean Corpuscular Volume 91 80-99 FL Mean Corpuscular Hemoglobin 31 25-34 PG Mean Corpuscular Hemoglobin Concent 34 32-36 G/DL Red Cell Distribution Width 13.7 10.0-14.5 % Platelet Count 292 130-400 10^3/uL Mean Platelet Volume 11.0 H 7.4-10.4 FL Neutrophils (%) (Auto) 71 42-75 % Lymphocytes (%) (Auto) 16 12-44 % Monocytes (%) (Auto) 6 0-12 % Eosinophils (%) (Auto) 7 0-10 % Basophils (%) (Auto) 0 0-10 % Neutrophils # (Auto) 6.2 1.8-7.8 X 10^3 Lymphocytes # (Auto) 1.4 1.0-4.0 X 10^3 Monocytes # (Auto) 0.5 0.0-1.0 X 10^3 Eosinophils # (Auto) 0.6 H 0.0-0.3 10^3/uL Basophils # (Auto) 0.0 0.0-0.1 10^3/uL Urine Color YELLOW Urine Clarity VERY CLOUDY H Urine pH 8 5-9 Urine Specific [place] 1.015 L 1.016-1.022 Urine Protein 3+ H NEGATIVE Urine Glucose (UA) NEGATIVE NEGATIVE Urine Ketones NEGATIVE NEGATIVE Urine Nitrite NEGATIVE NEGATIVE Urine Bilirubin NEGATIVE NEGATIVE Urine Urobilinogen NORMAL NORMAL MG/DL Urine Leukocyte Esterase 3+ H NEGATIVE Urine RBC (Auto) 5+ H NEGATIVE Urine RBC 10-25 H /HPF Urine WBC TNTC H /HPF Urine Crystals NONE /LPF Urine Bacteria LARGE H /HPF Urine Casts NONE /LPF Urine Mucus NEGATIVE /LPF Urine Culture Indicated YES Sodium Level 133 L 135-145 MMOL/L Potassium Level 4.5 3.6-5.0 MMOL/L Chloride Level 98 98-107 MMOL/L Carbon Dioxide Level 24 21-32 MMOL/L Anion Gap 11 5-14 MMOL/L Blood Urea Nitrogen 34 H 7-18 MG/DL Creatinine 1.24 0.60-1.30 MG/DL Estimat Glomerular Filtration Rate 56 BUN/Creatinine Ratio 27 Glucose Level 111 H 70-105 MG/DL Calcium Level 9.4 8.5-10.1 MG/DL Corrected Calcium 9.6 8.5-10.1 MG/DL Total Bilirubin 0.7 0.1-1.0 MG/DL Aspartate Amino Transf (AST/SGOT) 21 5-34 U/L Alanine Aminotransferase (ALT/SGPT) 22 0-55 U/L Alkaline Phosphatase 74 40-136 U/L Total Protein 7.5 6.4-8.2 GM/DL Albumin 3.7 3.2-4.5 GM/DL Lactic Acid Level 1.10 0.50-2.00 MMOL/L Micro Results Microbiology 02/26/18 Influenza Types A,B Antigen (DEV) - Final, Complete My Orders Orders - REJI HAGER REEL MAN Cbc With Automated Diff (02/26/18 11:21) Comprehensive Metabolic Panel (02/26/18 11:21) Ua Culture If Indicated (02/26/18 11:21) Iv Heplock-Insert (Order) (02/26/18 11:21) Blood Culture (02/26/18 11:21) Lactic Acid Analyzer (02/26/18 11:21) Influenza A And B Antigens (02/26/18 11:21) Chest 1 View, Ap/Pa Only (02/26/18 11:21) Urine Culture (02/26/18 11:22) Ampicillin/Sulbactam Injection (Unasyn 1 (02/26/18 12:15) Medications Given in ED Current Medications Medications Dose Ordered Sig/Moshe Route Start Time Stop Time Status Last Admin Dose Admin Ampicillin Sodium/ Sulbactam Sodium 1.5 gm/Sodium Chloride 100 ml @ 200 mls/hr ONCE ONCE IV 02/26/18 12:15 02/26/18 12:44 DC 02/26/18 12:51 200 MLS/HR Vital Signs/I&O 02/26/18 02/26/18 12:07 12:59 Temp 96.0 96.0 Pulse 86 81 Resp 12 12 B/P (MAP) 113/64 (80) 114/64 (81) Pulse Ox 98 100 Capillary Refill : Departure Communication (Admissions) 1204--he does still have a urinary tract infection. He was treated with a course of Bactrim and Keflex on 02/13/18. Urine sample at that time showed staphylococcal aureus and enterococcus. The Bactrim would have taken care of the staph aureus but the Enterobacter will need additional antibiotics. I'll use ampicillin based on sensitivity results. Impression Primary Impression: Urinary tract infection Qualified Codes: N30.01 - Acute cystitis with hematuria Disposition: 03 XFER SNF Condition: Stable Departure-Patient Inst. Decision time for Depature: 12:05 Referrals: ISI SENA MD (PCP/Family) Primary Care Physician Patient Instructions: Urinary Tract Infection, Adult (DC) Add. Discharge Instructions: 1. Antibiotic as directed 2. Follow-up with your doctor next week 3. Scripts Ampicillin Trihydrate (Ampicillin Trihydrate) 500 Mg Capsule 500 MG PO TID, #30 CAP Prov: REJI HAGER REEL MAN 02/26/18 REJI HAGER REEL MAN Feb 26, 2018 11:25
[2018-02-26 11:29] LABS: BASOPHILS % (AUTO) 0 % (0-10); EOSINOPHILS # (AUTO) 0.6 10^3/uL (0.0-0.3); EOSINOPHILS % (AUTO) 7 % (0-10); HEMATOCRIT 33 % (40-54); LYMPHOCYTES # (AUTO) 1.4 X 10^3 (1.0-4.0); LYMPHOCYTES % (AUTO) 16 % (12-44); MEAN CORPUSCULAR HEMOGLOBIN 31 PG (25-34); MEAN CORPUSCULAR HGB CONC 34 G/DL (32-36); MEAN CORPUSCULAR VOLUME 91 FL (80-99); MONOCYTES # (AUTO) 0.5 X 10^3 (0.0-1.0); MONOCYTES % (AUTO) 6 % (0-12); NEUTROPHILS # (AUTO) 6.2 X 10^3 (1.8-7.8); NEUTROPHILS % (AUTO) 71 % (42-75); PLATELET COUNT 292 10^3/uL (130-400); RED CELL DISTRIBUTION WIDTH 13.7 % (10.0-14.5); WHITE BLOOD COUNT 8.7 10^3/uL (4.3-11.0)
[2018-02-26 11:30] LABS: BILIRUBIN,URINE NEGATIVE (NEGATIVE); CLARITY,URINE VERY CLOUDY; COLOR,URINE YELLOW; GLUCOSE, URINE (UA) NEGATIVE (NEGATIVE); KETONES,URINE NEGATIVE (NEGATIVE); LEUKOCYTE ESTERASE ,URINE 3+ (NEGATIVE); NITRITE,URINE NEGATIVE (NEGATIVE); PH,URINE 8 (5-9); PROTEIN,URINE 3+ (NEGATIVE); UROBILINOGEN,URINE NORMAL (NORMAL)
[2018-02-26 11:45] LABS: BACTERIA,URINE LARGE /HPF; WBC,URINE TNTC /HPF
[2018-02-26 11:50] LABS: ALBUMIN 3.7 GM/DL (3.2-4.5); BILIRUBIN,TOTAL 0.7 MG/DL (0.1-1.0); CALCIUM 9.4 MG/DL (8.5-10.1); CREATININE SERUM 1.24 MG/DL (0.60-1.30); POTASSIUM 4.5 MMOL/L (3.6-5.0); TOTAL PROTEIN 7.5 GM/DL (6.4-8.2)
[2018-02-26] MEDS ORDERED: AMPI500C9 PO (12:07)
--- NOTE | 2018-02-26 12:13 | Diagnostic Imaging Report ---
INDICATION: Unresponsive. TIME OF EXAM: 12:03 PM Comparison is made with prior study from 11/25/2017. FINDINGS: Heart size is stable. Right hemidiaphragm is chronically elevated with some resultant subsegmental atelectasis in the right base. Otherwise lungs appear to be clear. No failure is seen. No effusion or pneumothorax is detected. IMPRESSION: Right basilar subsegmental atelectasis. No other significant abnormality is detected. Dictated by: Dictated on workstation # [id number]
[2018-02-26] MEDS ORDERED: AMPICILLIN/SULBACTAM INJECTION 1.5 GM in NS (IVPB) 100 ML IV ONE (12:15)
[2018-02-26 12:59] VITALS: BP 114/64
== END 2018-02-26 12:59 | disposition home or self-care (01) ==
LOC: ER 11:19 → EDUNIT# 11:19 → ER 12:59
DX: N39.0 Urinary tract infection, site not specified (principal); I25.10 Atherosclerotic heart disease of native coronary artery without angina pectoris; E78.00 Pure hypercholesterolemia, unspecified; I10 Essential (primary) hypertension; F43.10 Post-traumatic stress disorder, unspecified; E03.9 Hypothyroidism, unspecified; Z87.19 Personal history of other diseases of the digestive system; Z87.440 Personal history of urinary (tract) infections; Z82.49 Family history of ischemic heart disease and other diseases of the circulatory system; Z80.1 Family history of malignant neoplasm of trachea, bronchus and lung; Z87.891 Personal history of nicotine dependence; Z90.89 Acquired absence of other organs; Z94.7 Corneal transplant status; Z96.652 Presence of left artificial knee joint; Z95.5 Presence of coronary angioplasty implant and graft
CPT/HCPCS: 36415; 71045; 80053; 81000; 83605; 85025; 87040; 87077; 87088; 87186; 87804

== ENCOUNTER → 2018-03-08 | Emergency (ER) | payer MEDICARE, OTHER | LOC: ER 10:50 ==

== ENCOUNTER 2018-03-11 15:12 | Emergency (ER) | payer MEDICARE, OTHER ==
[~2018-03-11] VITALS: Ht 180.3 cm; Wt 72.3 kg
[~2018-03-11 15:12] MED LIST changes: +AMPI500C9 PO
--- NOTE | 2018-03-11 15:22 | ED Fall/Injury ---
General Chief Complaint: Trauma-Non Activation Stated Complaint: FALL Nursing Triage Note: PT FROM LONG-TERM. STATES HE FELL OUT OF HIS WHEELCHAIR WHILE TRYING TO TIE HIS SHOE. NURSE AT FACILITY STATES WHEELCHAIR WAS ON PT WHEN THEY FOUND HIM. DENIES LOC. REPORTS PAIN TO LEFT ELBOW Source: patient, EMS, long term records Exam Limitations: clinical condition (dementia) History of Present Illness Date Seen by Provider: Mar 11, 2018 Time Seen by Provider: 15:13 Initial Comments Patient presents to ER by EMS with chief complaint that he was bending over to tie his shoe and fell forward under his head and into the the ground front of his wheelchair. This occurred at the long term was not witnessed. Patient did not lose consciousness according to staff on and the patient. He says the left side of his head hurts in his left elbow hurts she's not having pain in his neck or anywhere else. He's having no nausea abdominal pain fevers or chills. Allergies and Home Medications Allergies Coded Allergies: No Known Drug Allergies (Unverified , 10/25/12) Home Medications Acetaminophen 325 Mg Tablet, 650 MG PEG Q4H PRN for TEMPATURE OR MILD PAIN, ( Reported) Ampicillin Trihydrate 500 Mg Capsule, 500 MG PO TID Prescribed by: REJI HAGER on 02/26/18 1207 Dorzolamide HCl/Timolol Maleat 10 Ml Drops, 1 DROP OU BID, (Reported) Famotidine 20 Mg Tablet, 20 MG PEG BID, (Reported) Hydrocodone Bit/Acetaminophen 1 Tab Tab, 1-2 TAB PO Q6H PRN for PAIN-MODERATE Prescribed by: DEDRA GABRIEL on 12/19/17 1406 Hydrocodone/Acetaminophen 1 Each Tablet, 1 TAB PEG Q6H PRN for BREAKTHROUGH PAIN , (Reported) Levothyroxine Sodium 88 Mcg Tablet, 88 MCG PEG DAILY, (Reported) Loperamide HCl 2 Mg Tablet, 2-4 MG PEG Q8H PRN for LOOSE STOOLS, (Reported) Lorazepam 1 Mg Tablet, 1 MG PEG Q4H PRN for AGITATION, (Reported) Loteprednol Etabonate 5 Gm Drops.gel, 1 DROP OD 1800, (Reported) Melatonin 3 Mg Tablet, 3 MG PEG HS, (Reported) Metoprolol Tartrate 50 Mg Tablet, 50 MG PEG BID, (Reported) Nystatin 100,000 Unit/1 Ml Oral.susp, TOP 5XD, (Reported) SWAB ONTON TONGUE 5 TIMES A DAY FOR MOUTH SORENESS Polyvinyl Alcohol/Povidone 15 Ml Drops, 1 DROP OU QID PRN for DRY EYES, ( Reported) Sulfamethoxazole/Trimethoprim 1 Each Tablet, 1 EACH PO BID Prescribed by: BASHIR MAYBERRY on 02/13/18 1230 Tramadol HCl 50 Mg Tablet, 50 MG PEG Q6H PRN for PAIN-MODERATE, (Reported) Ziprasidone 40 Mg Cap, 40 MG PO Q12H, (Reported) Patient Home Medication List Home Medication List Reviewed: Yes Review of Systems Review of Systems Constitutional: see HPI (review of systems Limited secondary to patient's clinical condition, dementia); No chills, No fever Ears, Nose, Mouth, Throat: denies ear pain, denies ear discharge, denies nose pain, denies nose discharge Respiratory: No cough, No short of breath Cardiovascular: No chest pain, No palpitations Gastrointestinal: No abdominal pain, No constipation Genitourinary: No discharge, No dysuria Musculoskeletal: No back pain; joint pain (left elbow) Past Kgfygin-Ieluix-Qzpoma Hx Patient Social History Alcohol Use: Denies Use Recreational Drug Use: No Smoking Status: Former Smoker Type Used: Cigarettes Former Smoker, Quit: Mar 11, 1989 2nd Hand Smoke Exposure: No Recent Foreign Travel: No Contact w/Someone Who Travel: No Recent Infectious Disease Expo: No Recent Hopitalizations: Yes Immunizations Up To Date Date of Pneumonia Vaccine: Nov 12, 2015 Date of Influenza Vaccine: Dec 06, 2015 Seasonal Allergies Seasonal Allergies: No Past Medical History Surgeries: Yes (CORNEA TRANSPLANT, MASTOIDECTOMY, eyelid reduction, L TKR, neck , PEG tube) Gallbladder, Joint Replacement, Orthopedic Respiratory: Yes (hx of aspiration pneumonia) Cardiac: Yes (STENTS X2-LAST ONE COUPLE YEARS AGO) Coronary Artery Disease, High Cholesterol, Hypertension Neurological: Yes (dysphagia) Dementia Reproductive Disorders: No Sexually Transmitted Disease: No HIV/AIDS: No Genitourinary: Yes (joe cath since having sx on cervical spin for stenosis, kidney failure) UTI-Chronic Gastrointestinal: Yes (peg tube placement since having sx on cervical spine for stenosis) Chronic Constipation Musculoskeletal: Yes (spinal stenosis, oteoarthritis, r/l knee contracture) Arthritis, Chronic Back Pain, Fractures Endocrine: No Hypothyroidsim HEENT: Yes Glaucoma Loss of Vision: Bilateral Hearing Impairment: Denies Cancer: No Psychosocial: No Integumentary: No Blood Disorders: No Adverse Reaction/Blood Tranf: No Family Medical History LUNG CANCER G8 BROTHER Myocardial infarction 19 MOTHER Physical Exam Vital Signs Vital Signs - First Documented 03/11/18 15:12 Temp 97.5 Pulse 73 Resp 16 B/P (MAP) 136/95 (109) Pulse Ox 97 Capillary Refill : Less Than 3 Seconds Height, Weight, BMI Height: 5'11.00" Weight: 159lbs. 8.0oz. 72.968373sw; 25.3 BMI Method:Stated General Appearance: no apparent distress, other (contractured) HEENT: PERRL/EOMI, normal ENT inspection, TMs normal, pharynx normal, other ( negative for Harris sign, raccoon eyes or hemotympanum) Neck: non-tender, full range of motion, supple, normal inspection Cardiovascular: normal peripheral pulses, regular rate, rhythm, no edema Respiratory: chest non-tender, lungs clear, normal breath sounds, no respiratory distress, no accessory muscle use Peripheral Pulses: 2+ Dorsalis Pedis (R), 2+ Left Dors-Pedis (L), 2+ Radial Pulses (R), 2+ Radial Pulses (L) Gastrointestinal: normal bowel sounds, non tender, soft Pelvic: normal external exam Back: normal inspection, no vertebral tenderness Extremities: normal range of motion, non-tender, normal capillary refill Neurologic/Psychiatric: alert, other (oriented to person but not time or place) Skin: normal color, warm/dry; No ecchymosis Progress/Results/Core Measures Results/Orders My Orders Orders - MARC WILDER Ct Head/Cervical Spine Wo (03/11/18 15:20) Elbow, Left, 3 Views (03/11/18 15:20) Vital Signs/I&O 03/11/18 15:12 Temp 97.5 Pulse 73 Resp 16 B/P (MAP) 136/95 (109) Pulse Ox 97 Blood Pressure Mean: 109 Progress Progress Note : Time: 16:59 Progress Note We could not elicit any pain on any of his joints or body surfaces that we pushed on. There is some old and possibly acute fractures of his left elbow noted. We'll put him in a sling for this. Tylenol and Motrin for pain. Diagnostic Imaging Diagonstic Imaging: Xray Plain Films/CT/US/NM/MRI: elbow (l) Comments [facility] [place], [place] NAME: ROSALBA SMITH [facility] REC#: [id number] PT STATUS: REG ER : 1935 PHYSICIAN: MARC WILDER MD ADMIT DATE: 03/11/18/ER Draft Date of Exam:03/11/18 ELBOW, LEFT, 3 VIEWS INDICATION: Fell, elbow pain. EXAMINATION: Left elbow at 3:58 p.m. Three views were obtained. FINDINGS: There is a linear lucency extending longitudinally through the medial most aspect of the medial epicondyle of the distal humerus. This could represent a small avulsion fracture although the age of this injury is indeterminate. There is also a well-circumscribed 9 mm calcific density in the soft tissues lateral to the lateral epicondyle. This has more the appearance of a chronic injury. There is no fracture or acute bony abnormality noted otherwise. The soft tissues are generally unremarkable. The posterior fat-pad is not elevated. IMPRESSION: 1. There are small avulsion fractures adjacent to each humeral epicondyle. The avulsion fracture along the lateral epicondyle is most likely chronic in nature. However, the avulsion fracture along the medial epicondyle is of indeterminate age and could be acute. Clinical followup is recommended. 2. There is no acute bony abnormality identified otherwise. Dictated on workstation # [id number] Dict: 03/11/18 1605 Trans: 03/11/18 1646 [facility] [id number] Interpreted by: SUNNY WARD MD Electronically signed by: Reviewed: Reviewed by Me Diagonstic Imaging: CT (without contrast) Plain Films/CT/US/NM/MRI: c-spine, head Comments [facility] [place], [place] NAME: ROSALBA SMITH [facility] REC#: [id number] PT STATUS: REG ER : 1935 PHYSICIAN: MARC WILDER MD ADMIT DATE: 03/11/18/ER Draft Date of Exam:03/11/18 CT HEAD/CERVICAL SPINE WO PROCEDURE: CT head and CT cervical spine without contrast. TECHNIQUE: Multiple contiguous axial images were obtained through the brain and cervical spine without the use of intravenous contrast. Sagittal and coronal reformations through the cervical spine were then performed. INDICATION: Traumatic head injury sustained on fall from wheelchair. COMPARISON: Brain MRI performed on 08/08/2017, as well as MRI of the cervical spine performed on 08/02/2016. FINDINGS - CT BRAIN: BRAIN: No parenchymal hemorrhage, midline shift or mass effect. Alvarez-white matter differentiation is intact. No acute infarct. Moderate periventricular and subcortical low-density white matter changes. Moderate prominence of the ventricles and Sulci consistent with cortical and cerebellar parenchymal volume loss. EXTRA-AXIAL SPACES: No subdural or epidural collections. ORBITS AND PARANASAL SINUSES: Visualized orbits and globes are intact. There is opacification of the mastoid air cells on both sides. The visualized paranasal sinuses are clear. CALVARIUM AND SOFT TISSUES: The calvarium is intact. No fractures or suspicious bony lesions. The extracranial soft tissues are unremarkable. FINDINGS - CT CERVICAL SPINE: SPINE: No fracture or acute osseous abnormality. The patient is status post anterior fusion at the C4 through C7 levels, with interbody fusion devices also noted. No evidence of hardware abnormality. There appears to be amorphous osseous fusion across these involved levels. There is normal cervical lordosis. No subluxation. There is marked intervertebral disc space narrowing at the C3-4 level, with endplate sclerosis, anterior osteophyte formation, and uncovertebral spurring noted at this level. A moderate disc osteophyte complex is also demonstrated at this level. Disc osteophyte complexes are also demonstrated at multiple additional levels in the region of fusion. There is central canal stenosis and bilateral neural foraminal narrowing at multiple levels. No locked or perched facet. SOFT TISSUES AND LUNG APICES: Soft tissues unremarkable. Clear lung apices. IMPRESSION: - CT BRAIN: No acute intracranial pathology. Chronic changes consisting of age-related volume loss and moderate white matter disease, most commonly attributed to small vessel ischemic change. IMPRESSION: - CT CERVICAL SPINE: Status post anterior cervical fusion at the C4 through C7 levels. Multilevel degenerative change is again noted. No evidence of acute fracture or subluxation. Dictated on workstation # [id number] Dict: 03/11/18 1555 Trans: 03/11/18 1610 [id number] Interpreted by: AME ARENAS DO Electronically signed by: Reviewed: Reviewed by Me Departure Impression Primary Impression: Fall Qualified Codes: W19.XXXA - Unspecified fall, initial encounter Additional Impression: Elbow fracture, left Qualified Codes: S42.402A - Unspecified fracture of lower end of left humerus , initial encounter for closed fracture Disposition: HOME, SELF-CARE Condition: Stable Departure-Patient Inst. Decision time for Depature: 17:01 Referrals: YENY FIELD DANIEL J MD (PCP/Family) Primary Care Physician Patient Instructions: Elbow Fracture (DC) Add. Discharge Instructions: Keep the elbow in a sling for the next 4 weeks. Follow-up with orthopedics or primary care for management of the elbow fracture. Tylenol 1000mg every 8 hours and or ibuprofen 800mg every 8 hours as needed for pain. All discharge instructions reviewed with patient and/or family. Voiced understanding. Copy Copies To 1: YENY FIELD TITUS J Mar 11, 2018 15:22
--- NOTE | 2018-03-11 16:11 | Diagnostic Imaging Report ---
PROCEDURE: CT head and CT cervical spine without contrast. TECHNIQUE: Multiple contiguous axial images were obtained through the brain and cervical spine without the use of intravenous contrast. Sagittal and coronal reformations through the cervical spine were then performed. INDICATION: Traumatic head injury sustained on fall from wheelchair. COMPARISON: Brain MRI performed on 08/08/2017, as well as MRI of the cervical spine performed on 08/02/2016. FINDINGS - CT BRAIN: BRAIN: No parenchymal hemorrhage, midline shift or mass effect. Alvarez-white matter differentiation is intact. No acute infarct. Moderate periventricular and subcortical low-density white matter changes. Moderate prominence of the ventricles and Sulci consistent with cortical and cerebellar parenchymal volume loss. EXTRA-AXIAL SPACES: No subdural or epidural collections. ORBITS AND PARANASAL SINUSES: Visualized orbits and globes are intact. There is opacification of the mastoid air cells on both sides. The visualized paranasal sinuses are clear. CALVARIUM AND SOFT TISSUES: The calvarium is intact. No fractures or suspicious bony lesions. The extracranial soft tissues are unremarkable. FINDINGS - CT CERVICAL SPINE: SPINE: No fracture or acute osseous abnormality. The patient is status post anterior fusion at the C4 through C7 levels, with interbody fusion devices also noted. No evidence of hardware abnormality. There appears to be amorphous osseous fusion across these involved levels. There is normal cervical lordosis. No subluxation. There is marked intervertebral disc space narrowing at the C3-4 level, with endplate sclerosis, anterior osteophyte formation, and uncovertebral spurring noted at this level. A moderate disc osteophyte complex is also demonstrated at this level. Disc osteophyte complexes are also demonstrated at multiple additional levels in the region of fusion. There is central canal stenosis and bilateral neural foraminal narrowing at multiple levels. No locked or perched facet. SOFT TISSUES AND LUNG APICES: Soft tissues unremarkable. Clear lung apices. IMPRESSION: - CT BRAIN: No acute intracranial pathology. Chronic changes consisting of age-related volume loss and moderate white matter disease, most commonly attributed to small vessel ischemic change. IMPRESSION: - CT CERVICAL SPINE: Status post anterior cervical fusion at the C4 through C7 levels. Multilevel degenerative change is again noted. No evidence of acute fracture or subluxation. Dictated by: Dictated on workstation # [id number]
--- NOTE | 2018-03-11 16:46 | Diagnostic Imaging Report ---
INDICATION: Fell, elbow pain. EXAMINATION: Left elbow at 3:58 p.m. Three views were obtained. FINDINGS: There is a linear lucency extending longitudinally through the medial most aspect of the medial epicondyle of the distal humerus. This could represent a small avulsion fracture although the age of this injury is indeterminate. There is also a well-circumscribed 9 mm calcific density in the soft tissues lateral to the lateral epicondyle. This has more the appearance of a chronic injury. There is no fracture or acute bony abnormality noted otherwise. The soft tissues are generally unremarkable. The posterior fat-pad is not elevated. IMPRESSION: 1. There are small avulsion fractures adjacent to each humeral epicondyle. The avulsion fracture along the lateral epicondyle is most likely chronic in nature. However, the avulsion fracture along the medial epicondyle is of indeterminate age and could be acute. Clinical followup is recommended. 2. There is no acute bony abnormality identified otherwise. Dictated by: Dictated on workstation # [id number]
--- NOTE | 2018-03-11 17:00 | NUR ---
PHONE CALL PLACED TO [facility]. THEY WILL HAVE SOMEONE TO GET PT.
[2018-03-11 17:52] VITALS: BP 136/95
== END 2018-03-11 17:52 | disposition home or self-care (01) ==
LOC: EDUNIT# 15:12 → ER 15:13
DX: S42.302A Unspecified fracture of shaft of humerus, left arm, initial encounter for closed fracture (principal); I25.10 Atherosclerotic heart disease of native coronary artery without angina pectoris; E78.00 Pure hypercholesterolemia, unspecified; I10 Essential (primary) hypertension; F03.90 Unspecified dementia, unspecified severity, without behavioral disturbance, psychotic disturbance, mood disturbance, and anxiety; E03.9 Hypothyroidism, unspecified; Z80.1 Family history of malignant neoplasm of trachea, bronchus and lung; Z82.49 Family history of ischemic heart disease and other diseases of the circulatory system; Z87.19 Personal history of other diseases of the digestive system; Z96.0 Presence of urogenital implants; Z87.440 Personal history of urinary (tract) infections; Z87.891 Personal history of nicotine dependence; Z94.7 Corneal transplant status; Z96.652 Presence of left artificial knee joint; Z95.5 Presence of coronary angioplasty implant and graft; V00.811A Fall from moving wheelchair (powered), initial encounter
CPT/HCPCS: 70450; 72125; 73080

== ENCOUNTER 2018-03-25 15:14 | Emergency (ER) | payer MEDICARE, OTHER | END 2018-03-25 17:34 | disposition home or self-care (01) | LOC: ER 15:14 ==

== ENCOUNTER → 2018-04-06 | Outpatient (CLI) | payer MEDICARE, OTHER ==
[~2018-04-06] MED LIST changes: +CFTR1V IJ; +HYDR473S50 PO; +SENN-141 PEG
--- NOTE | 2018-04-06 14:00 | Diagnostic Imaging Report ---
Indication: Dysphagia. Procedure was performed in conjunction with a member of the Department of Speech Pathology. Patient swallowed thin and thick barium and semisolid and solid foods mixed with barium paste. Study is recorded on video tape. Findings: There is a delay in oral phase of swallowing with some significant tongue pumping. There is decreased cricopharyngeal function and laryngeal elevation. There was penetration with thin barium. A spontaneous cough was present. Impression: Penetration and aspiration with thin barium. Please correlate with the formal speech pathology report. Dictated on workstation # [id number]
== END ==
LOC: RAD 10:14
PROVIDERS: ATTEND Family Medicine
DX: R13.10 Dysphagia, unspecified (principal)
CPT/HCPCS: 74230

== ENCOUNTER → 2018-04-07 | Outpatient (CLI) | payer MEDICARE, OTHER ==
[2018-04-07 10:56] LABS: BILIRUBIN,URINE NEGATIVE (NEGATIVE); CLARITY,URINE MUCOUS; COLOR,URINE YELLOW; GLUCOSE, URINE (UA) NEGATIVE (NEGATIVE); KETONES,URINE NEGATIVE (NEGATIVE); LEUKOCYTE ESTERASE ,URINE 3+ (NEGATIVE); NITRITE,URINE NEGATIVE (NEGATIVE); PH,URINE 7 (5-9); PROTEIN,URINE 2+ (NEGATIVE); UROBILINOGEN,URINE NORMAL (NORMAL)
[2018-04-07 11:50] LABS: BACTERIA,URINE LARGE /HPF; RBC,URINE 25-50 /HPF; WBC,URINE TNTC /HPF; YEAST,URINE FEW /HPF
== END ==
LOC: CVS 10:49 → LABNPT 10:49
PROVIDERS: ATTEND Family Medicine
DX: R82.998 Other abnormal findings in urine (principal)
CPT/HCPCS: 81000; 87077; 87088; 87186

== ENCOUNTER 2018-04-19 23:15 | Inpatient (IN) | payer MEDICARE, OTHER ==
[~2018-04-19] VITALS: Ht 182.9 cm; Wt 74.5 kg
[2018-04-19 23:15] VITALS: BP 141/81
[~2018-04-19 23:15] MED LIST changes: +ZPR40C PEG; -ZPR40C PO
[2018-04-19 23:20] VITALS: BP 141/82
[2018-04-19 23:29] LABS: ABG BASE EXCESS 0.8 MMOL/L (-2.5-2.5); ABG OXYGEN SATURATION 100 % (94-100); ABG PCO2 41 MMHG (35-45); ABG PH 7.41 (7.37-7.43); ABG PO2 443 MMHG (79-93); ABG TCO2 26.4 MMOL/L (21.0-31.0)
[2018-04-19 23:30] LABS: ALLENS TEST POSITIVE; INSPIRED O2 100% fio2 bipap; PATIENT TEMP 97.4; VENTILATOR YES
[2018-04-19] MEDS ORDERED: RT-ALBUTEROL/IPRATROPIUM 3 ML (DUONEB) VIAL INH ONE (23:30)
[2018-04-19] MEDS ORDERED: CEFEPIME INJECTION 1,000 MG in NS (IVPB) 50 ML IV ONE (23:30)
[2018-04-19 23:38] LABS: HEMATOCRIT 34 % (40-54); HEMOGLOBIN 11.4 G/DL (13.3-17.7); MEAN CORPUSCULAR HEMOGLOBIN 31 PG (25-34); MEAN CORPUSCULAR HGB CONC 34 G/DL (32-36); MEAN CORPUSCULAR VOLUME 94 FL (80-99); MEAN PLATELET VOLUME 11.9 FL (7.4-10.4); PLATELET COUNT 224 10^3/uL (130-400); RED CELL DISTRIBUTION WIDTH 12.7 % (10.0-14.5); WHITE BLOOD COUNT 12.9 10^3/uL (4.3-11.0)
[2018-04-19 23:39] LABS: BASOPHILS % (AUTO) 0 % (0-10); EOSINOPHILS # (AUTO) 0.5 10^3/uL (0.0-0.3); EOSINOPHILS % (AUTO) 4 % (0-10); LYMPHOCYTES # (AUTO) 1.4 X 10^3 (1.0-4.0); LYMPHOCYTES % (AUTO) 11 % (12-44); MONOCYTES # (AUTO) 0.7 X 10^3 (0.0-1.0); MONOCYTES % (AUTO) 6 % (0-12); NEUTROPHILS # (AUTO) 10.3 X 10^3 (1.8-7.8); NEUTROPHILS % (AUTO) 80 % (42-75)
--- NOTE | 2018-04-19 23:50 | ED Respiratory ---
General Chief Complaint: Respiratory Problems Stated Complaint: RESP DISTRESS Source: patient, EMS, retirement records Exam Limitations: clinical condition History of Present Illness Date Seen by Provider: Apr 19, 2018 Time Seen by Provider: 23:15 Initial Comments Patient presents to ER by EMS from via [facility] with chief complaint of shortness of breath cough and rattly breath sounds starting abruptly at after 10:00. No noted fever. EMS was summonsed they came and suctioned about 200 cc of white frothy sputum and put him on a high flow oxygen device and which kept his saturations at 100%. Patient would after simple questions and was cooperative but in moderate to severe respiratory distress. Patient is not a good historian nor does he give any meaningful review of systems. Allergies and Home Medications Allergies Coded Allergies: No Known Drug Allergies (Unverified , 10/25/12) Home Medications Acetaminophen 325 Mg Tablet, 650 MG PEG Q4H PRN for TEMPATURE OR MILD PAIN, ( Reported) Ampicillin Trihydrate 500 Mg Capsule, 500 MG PO TID Prescribed by: REJI HAGER on 02/26/18 1207 Ceftriaxone Sodium 1 Gm Vial, 1 GM IJ DAILY Prescribed by: BASHIR MAYBERRY on 03/25/18 1658 Dorzolamide HCl/Timolol Maleat 10 Ml Drops, 1 DROP OU BID, (Reported) Famotidine 20 Mg Tablet, 20 MG PEG BID, (Reported) Famotidine 20 Mg Tablet, 20 MG PEG BID, (Reported) Hydrocodone/Acetaminophen 1 Each Tablet, 1 TAB PEG Q6H PRN for BREAKTHROUGH PAIN , (Reported) Hydrocodone/Acetaminophen 473 Ml Solution, 7.5 ML PO BID, (Reported) Levothyroxine Sodium 88 Mcg Tablet, 88 MCG PEG DAILY, (Reported) Loperamide HCl 2 Mg Tablet, 2-4 MG PEG Q8H PRN for LOOSE STOOLS, (Reported) Lorazepam 1 Mg Tablet, 1 MG PEG Q4H PRN for AGITATION, (Reported) Loteprednol Etabonate 5 Gm Drops.gel, 1 DROP OD 1800, (Reported) Melatonin 3 Mg Tablet, 3 MG PEG HS, (Reported) Metoprolol Tartrate 50 Mg Tablet, 50 MG PEG BID, (Reported) Nystatin 100,000 Unit/1 Ml Oral.susp, TOP 5XD, (Reported) SWAB ONTON TONGUE 5 TIMES A DAY FOR MOUTH SORENESS Polyvinyl Alcohol/Povidone 15 Ml Drops, 1 DROP OU QID PRN for DRY EYES, ( Reported) Sennosides 8.6 Mg Tablet, 2 TAB PEG DAILY, (Reported) Tramadol HCl 50 Mg Tablet, 50 MG PEG Q6H PRN for PAIN-MODERATE, (Reported) Ziprasidone 40 Mg Cap, 40 MG PO Q12H, (Reported) Patient Home Medication List Home Medication List Reviewed: Yes Review of Systems Review of Systems Constitutional: see HPI (patient does not give a meaningful review of systems.) Past Kblczxu-Arexzl-Osxjxx Hx Patient Social History Alcohol Use: Denies Use Recreational Drug Use: No Smoking Status: Former Smoker Type Used: Cigarettes Former Smoker, Quit: Mar 11, 1989 2nd Hand Smoke Exposure: No Recent Foreign Travel: No Contact w/Someone Who Travel: No Recent Hopitalizations: Yes Physical Abuse: No Sexual Abuse: No Mistreated: No Fear: No Immunizations Up To Date Date of Pneumonia Vaccine: Nov 12, 2015 Date of Influenza Vaccine: Dec 06, 2015 Seasonal Allergies Seasonal Allergies: No Past Medical History Surgeries: Yes (CORNEA TRANSPLANT, MASTOIDECTOMY, eyelid reduction, L TKR, neck , PEG tube) Gallbladder, Joint Replacement, Orthopedic Respiratory: Yes (hx of aspiration pneumonia) Cardiac: Yes (STENTS X2-LAST ONE COUPLE YEARS AGO) Coronary Artery Disease, High Cholesterol, Hypertension Neurological: Yes (dysphagia) Dementia Reproductive Disorders: No Sexually Transmitted Disease: No HIV/AIDS: No Genitourinary: Yes (joe cath since having sx on cervical spin for stenosis, kidney failure) UTI-Chronic Gastrointestinal: Yes (peg tube placement since having sx on cervical spine for stenosis) Chronic Constipation Musculoskeletal: Yes (spinal stenosis, oteoarthritis, r/l knee contracture) Arthritis, Chronic Back Pain, Fractures Endocrine: No Hypothyroidsim HEENT: Yes Glaucoma Loss of Vision: Bilateral Hearing Impairment: Denies Cancer: No Psychosocial: No Integumentary: No Blood Disorders: No Adverse Reaction/Blood Tranf: No Family Medical History LUNG CANCER G8 BROTHER Myocardial infarction 19 MOTHER Physical Exam Vital Signs - First Documented 04/19/18 04/19/18 23:15 23:20 Temp 97.4 Pulse 99 Resp 19 B/P (MAP) 141/82 (101) Pulse Ox 100 O2 Delivery NIV Bilevel O2 Flow Rate 21.00 FiO2 100 Capillary Refill : Height: 5'8.00" Weight: 165lbs. 8.0oz. [id number]; 25.3 BMI Method:Estimated General Appearance: moderate distress, thin Eyes: Bilateral Eye Normal Inspection, Bilateral Eye PERRL, Bilateral Eye EOMI HEENT: PERRL/EOMI, normal ENT inspection, TMs normal, pharynx normal Neck: non-tender, supple Respiratory: chest non-tender, respiratory distress (moderate to severe), rhonchi (bilateral) Cardiovascular: normal peripheral pulses, regular rate, rhythm, no edema, no murmur, tachycardia (110) Gastrointestinal: normal bowel sounds, non tender, soft Extremities: No normal range of motion (chronic contractures of all 4 extremities); non-tender, normal capillary refill Neurologic/Psychiatric: alert, other (oriented to person) Skin: normal color, warm/dry Focused Exam Lactate Level 04/19/18 23:30: Lactic Acid Level 0.54 Lactic Acid Level Laboratory Tests Test 04/19/18 23:30 Lactic Acid Level 0.54 MMOL/L (0.50-2.00) Progress/Results/Core Measures Suspected Sepsis SIRS Temperature: Pulse: 99 Respiratory Rate: 19 Laboratory Tests 04/19/18 23:30: White Blood Count 12.9H Blood Pressure 141 /81 Mean: 04/19/18 23:30: Lactic Acid Level 0.54 Laboratory Tests 04/19/18 23:30: Creatinine 1.20, INR Comment 1.0, Platelet Count 224, Total Bilirubin 0.8 Results/Orders Lab Results Laboratory Tests Test 04/19/18 23:20 04/19/18 23:30 04/20/18 00:09 Range/Units Blood Gas Puncture Site LEFT RADIAL Blood Gas Patient Temperature 97.4 Arterial Blood pH 7.41 7.37-7.43 Arterial Blood Partial Pressure CO2 41 35-45 MMHG Arterial Blood Partial Pressure O2 443 H 79-93 MMHG Arterial Blood HCO3 25 23-27 MMOL/L Arterial Blood Total CO2 26.4 21.0-31.0 MMOL/L Arterial Blood Oxygen Saturation 100 94-100 % Arterial Blood Base Excess 0.8 -2.5-2.5 MMOL/L Miguel Test POSITIVE Blood Gas Ventilator Setting YES Blood Gas Inspired Oxygen 100% fio2 bipap White Blood Count 12.9 H 4.3-11.0 10^3/uL Red Blood Count 3.63 L 4.35-5.85 10^6/uL Hemoglobin 11.4 L 13.3-17.7 G/DL Hematocrit 34 L 40-54 % Mean Corpuscular Volume 94 80-99 FL Mean Corpuscular Hemoglobin 31 25-34 PG Mean Corpuscular Hemoglobin Concent 34 32-36 G/DL Red Cell Distribution Width 12.7 10.0-14.5 % Platelet Count 224 130-400 10^3/uL Mean Platelet Volume 11.9 H 7.4-10.4 FL Neutrophils (%) (Auto) 80 H 42-75 % Lymphocytes (%) (Auto) 11 L 12-44 % Monocytes (%) (Auto) 6 0-12 % Eosinophils (%) (Auto) 4 0-10 % Basophils (%) (Auto) 0 0-10 % Neutrophils # (Auto) 10.3 H 1.8-7.8 X 10^3 Lymphocytes # (Auto) 1.4 1.0-4.0 X 10^3 Monocytes # (Auto) 0.7 0.0-1.0 X 10^3 Eosinophils # (Auto) 0.5 H 0.0-0.3 10^3/uL Basophils # (Auto) 0.0 0.0-0.1 10^3/uL Prothrombin Time 13.0 12.2-14.7 SEC INR Comment 1.0 0.8-1.4 Activated Partial Thromboplast Time 23 L 24-35 SEC Sodium Level 134 L 135-145 MMOL/L Potassium Level 5.1 H 3.6-5.0 MMOL/L Chloride Level 98 98-107 MMOL/L Carbon Dioxide Level 25 21-32 MMOL/L Anion Gap 11 5-14 MMOL/L Blood Urea Nitrogen 38 H 7-18 MG/DL Creatinine 1.20 0.60-1.30 MG/DL Estimat Glomerular Filtration Rate 58 BUN/Creatinine Ratio 32 Glucose Level 109 H 70-105 MG/DL Lactic Acid Level 0.54 0.50-2.00 MMOL/L Calcium Level 9.6 8.5-10.1 MG/DL Corrected Calcium 9.6 8.5-10.1 MG/DL Total Bilirubin 0.8 0.1-1.0 MG/DL Aspartate Amino Transf (AST/SGOT) 20 5-34 U/L Alanine Aminotransferase (ALT/SGPT) 17 0-55 U/L Alkaline Phosphatase 82 40-136 U/L C-Reactive Protein High Sensitivity 3.16 H 0.00-0.50 MG/DL B-Type Natriuretic Peptide 70.1 <100.0 PG/ML Total Protein 7.8 6.4-8.2 GM/DL Albumin 4.0 3.2-4.5 GM/DL Urine Color YELLOW Urine Clarity CLEAR Urine pH 8 5-9 Urine Specific Brandon 1.010 L 1.016-1.022 Urine Protein 2+ H NEGATIVE Urine Glucose (UA) NEGATIVE NEGATIVE Urine Ketones NEGATIVE NEGATIVE Urine Nitrite NEGATIVE NEGATIVE Urine Bilirubin NEGATIVE NEGATIVE Urine Urobilinogen NORMAL NORMAL MG/DL Urine Leukocyte Esterase 3+ H NEGATIVE Urine RBC (Auto) 1+ H NEGATIVE Urine RBC NONE /HPF Urine WBC TNTC H /HPF Urine Crystals NONE /LPF Urine Bacteria FEW H /HPF Urine Casts NONE /LPF Urine Mucus NEGATIVE /LPF Urine Yeast MODERATE H /HPF Urine Culture Indicated CULTURE PENDING Micro Results Microbiology 04/19/18 Influenza Types A,B Antigen (DEV) - Final, Complete My Orders Orders - MARC WILDER Arterial Blood Gas (04/19/18 23:26) Cbc With Automated Diff (04/19/18 23:26) Comprehensive Metabolic Panel (04/19/18 23:26) Blood Culture (04/19/18 23:26) Sputum Culture (04/19/18 23:26) Urinalysis (04/19/18 23:26) Urine Culture (04/19/18 23:26) Protime With Inr (04/19/18 23:) Partial Thromboplastin Time (04/19/18 23:26) Chest 1 View, Ap/Pa Only (04/19/18 23:26) Saline Lock/Iv-Start (04/19/18 23:26) Saline Lock/Iv-Start (04/19/18 23:26) Vital Signs Adult Sepsis Patie Q15M (04/19/18 23:26) O2 (04/19/18 23:26) Remove Rings In Anticipation O (04/19/18 23:26) Lactic Acid Analyzer (04/19/18 23:26) Influenza A And B Antigens (04/19/18 23:26) Cefepime Injection (Maxipime Injection) (04/19/18 23:30) Saline Lock/Iv-Start (04/19/18 23:26) Albuterol/Ipra Inhalation Soln (Duoneb I (04/19/18 23:30) Rt Request For Service (04/19/18 23:26) Svn Small Volume Nebulizer (04/19/18 23:26) Hs C Reactive Protein (04/19/18 23:30) BNP (04/19/18 23:54) Saline Lock/Iv-Start (04/20/18 01:11) Ns Iv 500 Ml (Sodium Chloride 0.9%) (04/20/18 01:11) Ns Iv 1000 Ml (Sodium Chloride 0.9%) (04/20/18 01:11) Medications Given in ED Current Medications Medications Dose Ordered Sig/Moshe Route Start Time Stop Time Status Last Admin Dose Admin Cefepime HCl 1000 mg/Sodium Chloride 50 ml @ 100 mls/hr ONCE ONCE IV 04/19/18 23:30 04/19/18 23:59 DC 04/19/18 23:58 100 MLS/HR Sodium Chloride 500 ml @ 0 mls/hr Q0M ONCE IV 04/20/18 01:11 04/20/18 01:14 DC 04/20/18 01:32 500 MLS/HR Vital Signs/I&O 04/19/18 04/19/18 04/19/18 04/19/18 23:15 23:15 23:20 23:30 Temp 97.4 97.4 Pulse 99 98 98 Resp 19 12 12 B/P (MAP) 141/82 (101) 141/82 (101) Pulse Ox 100 100 100 100 O2 Delivery NIV Bilevel NIV Bilevel NIV/Bilevel O2 Flow Rate 21.00 100.00 FiO2 100 Capillary Refill : Progress Note #1: Time: 23:52 Progress Note Patient had oxygen saturations are 100% on high flow oxygen device. We put him on BiPAP got some sputum cultures and suction the back of his throat as well as some deep suctioning getting some white frothy sputum. Symptoms that he could be an either flash pulmonary edema or bronchitis/bronchiolitis. Chest x-ray did not demonstrate acute infiltrate. No fever but moderate tachycardia. Septic workup was started to include influenza. We'll also add a CRP and a BNP. He is not having any edema. Echocardiogram [address] Wynn: Normal left ventricle size with EF of 60% and diastolic dysfunction. Progress Note #2: Time: 01:16 Progress Note Patient's resting comfortably on BiPAP. We dropped his FiO2 all the way down to 30%. He may have some component of aspiration that caused his respiratory distress and he definitely has a UTI. Cefepime would cover for now. He does have a history of aspiration pneumonitis. We'll give him a 20 mL/kg fluid bolus and set him up to the floor. Diagnostic Imaging Diagonstic Imaging: Xray Plain Films/CT/US/NM/MRI: chest (1v) Comments No acute cardiopulmonary process noted. No evidence of pneumothorax. Reviewed: Reviewed by Me Departure Communication (Admissions) Time/Spoke to Admitting Phy: 01:21 Discussed the case with Dr. Sena and the suspicion for possible development of aspiration pneumonitis versus pneumonia. Cefepime for coverage of that plus UTI. He agrees to admit the patient. Impression Primary Impression: Urinary tract infection Qualified Codes: N30.00 - Acute cystitis without hematuria Additional Impressions: Sepsis Qualified Codes: A41.9 - Sepsis, unspecified organism Recurrent aspiration bronchitis/pneumonia Disposition: ADMITTED INPATIENT Condition: Stable Admissions Decision to Admit Reason: Admit from ER (General) Decision to Admit/Date: Apr 20, 2018 Time/Decision to Admit Time: 00:59 Departure-Patient Inst. Referrals: ISI SENA MD (PCP/Family) Primary Care Physician Copy Copies To 1: ISI SENA MD, TITUS J Apr 19, 2018 23:50
[2018-04-19 23:57] LABS: BILIRUBIN,TOTAL 0.8 MG/DL (0.1-1.0); CALCIUM 9.6 MG/DL (8.5-10.1); CREATININE SERUM 1.2 MG/DL (0.60-1.30); POTASSIUM 5.1 MMOL/L (3.6-5.0); TOTAL PROTEIN 7.8 GM/DL (6.4-8.2)
[2018-04-20 00:23] LABS: BILIRUBIN,URINE NEGATIVE (NEGATIVE); CLARITY,URINE CLEAR; COLOR,URINE YELLOW; GLUCOSE, URINE (UA) NEGATIVE (NEGATIVE); KETONES,URINE NEGATIVE (NEGATIVE); LEUKOCYTE ESTERASE ,URINE 3+ (NEGATIVE); NITRITE,URINE NEGATIVE (NEGATIVE); PH,URINE 8 (5-9); PROTEIN,URINE 2+ (NEGATIVE); UROBILINOGEN,URINE NORMAL (NORMAL)
[2018-04-20 00:32] LABS: BACTERIA,URINE FEW /HPF; WBC,URINE TNTC /HPF
[2018-04-20 00:33] LABS: YEAST,URINE MODERATE /HPF
[2018-04-20] MEDS ORDERED: NS IV 500 ML 500 ML IV ONE (01:11)
[2018-04-20] MEDS: NS IV 1000 ML 1,000 ML IV SCH ×5 (01:19→17:40)
[2018-04-20 02:30] VITALS: BP 151/69
--- NOTE | 2018-04-20 02:30 | NUR ---
ROSALBA SMITH admitted to room 419-1, with an admitting diagnosis of UTI and sepsis, on 04/20/18 from ED via stretcher, accompanied by ED staff. ROSALBA SMITH introduced to surroundings, call light, bed controls, phone, TV, temperature control, lights, meal times, smoking policy, visitor policy, side rail policy, bathrooms and showers. Patient Rights given to patient in the handbook. ROSALBA SMITH verbalizes understanding that [facility] is not responsible for the loss or damage to any personal effects or valuables that are kept in the patients posession during their hospitalization. The following Patient Care Plans were discussed with the : Discharge Planning, infectin, pain altered urinary elimination pattern, and knowledge deficit. ROSALBA SMITH verbalizes understanding of Interdisciplinary Patient Education. Patient and/or family were informed about the Rapid Response Team and its purpose.
[2018-04-20 04:00] VITALS: BP 143/66
[2018-04-20] MEDS ORDERED: ONDANSETRON 4 MG/2 ML (SDV) Z0FRAN IV PRN (05:15)
[2018-04-20] MEDS ORDERED: RT-ALBUTEROL/IPRATROPIUM 3 ML (DUONEB) VIAL INH PRN (05:15)
[2018-04-20] MEDS ORDERED: ACETAMINOPHEN 500 MG TAB (TYLENOL) PO PRN (05:15)
[2018-04-20] MEDS: LEVOTHYROXINE 88 MCG (LEVOTHORID) TAB PO SCH (05:36)
[2018-04-20 06:27] LABS: BASOPHILS % (AUTO) 0 % (0-10); EOSINOPHILS % (AUTO) 0 % (0-10); HEMATOCRIT 31 % (40-54); HEMOGLOBIN 10.3 G/DL (13.3-17.7); LYMPHOCYTES % (AUTO) 9 % (12-44); MEAN CORPUSCULAR HEMOGLOBIN 31 PG (25-34); MEAN CORPUSCULAR HGB CONC 33 G/DL (32-36); MEAN CORPUSCULAR VOLUME 93 FL (80-99); MONOCYTES # (AUTO) 0.6 X 10^3 (0.0-1.0); MONOCYTES % (AUTO) 6 % (0-12); NEUTROPHILS # (AUTO) 9.3 X 10^3 (1.8-7.8); NEUTROPHILS % (AUTO) 85 % (42-75); PLATELET COUNT 204 10^3/uL (130-400); RED CELL DISTRIBUTION WIDTH 12.6 % (10.0-14.5); WHITE BLOOD COUNT 10.9 10^3/uL (4.3-11.0)
[2018-04-20 06:50] LABS: BUN/CREATININE RATIO 33; CALCIUM 8.9 MG/DL (8.5-10.1); CARBON DIOXIDE 23 MMOL/L (21-32); CHLORIDE 102 MMOL/L (98-107); CREATININE SERUM 1.02 MG/DL (0.60-1.30); GFR ESTIMATED > 60; GLUCOSE 102 MG/DL (70-105); POTASSIUM 4.3 MMOL/L (3.6-5.0); SODIUM 134 MMOL/L (135-145)
[2018-04-20] MEDS: RT-ALBUTEROL/IPRATROPIUM 3 ML (DUONEB) VIAL INH SCH ×5 (07:18→22:17)
--- NOTE | 2018-04-20 07:23 | History & Physicial ---
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 According to staff at [facility] he began having a cough as well as breath sounds that were rattly at about 10 o'clock p.m. At that time he was not running any fever. He does have a history of aspiration pneumonia due to dysphagia. [facility] EMS brought patient to emergency department due to the respiratory distress. Apparently he had suctioned 200 mL of sputum and he was placed on high flow oxygen keeping his saturations at 100 percent. Patient has also recently been treated for urinary tract infection resistant to oral medications and he had been on IV Rocephin. Date of Admission Apr 20, 2018 at 01:30 Date Seen by a Provider: Apr 20, 2018 Time Seen by a Provider: 07:30 I consulted on this patient on 04/20/18 07:17 Attending Physician Isi Sena MD Admitting Physician Isi Sena MD Consult Allergies and Home Medications Allergies Coded Allergies: No Known Drug Allergies (Unverified , 10/25/12) Home Medications Acetaminophen 325 Mg Tablet, 650 MG PEG Q4H PRN for TEMPATURE OR MILD PAIN, ( Reported) Ampicillin Trihydrate 500 Mg Capsule, 500 MG PO TID Prescribed by: REJI HAGER on 02/26/18 1207 Ceftriaxone Sodium 1 Gm Vial, 1 GM IJ DAILY Prescribed by: BASHIR MAYBERRY on 03/25/18 1658 Dorzolamide HCl/Timolol Maleat 10 Ml Drops, 1 DROP OU BID, (Reported) Famotidine 20 Mg Tablet, 20 MG PEG BID, (Reported) Famotidine 20 Mg Tablet, 20 MG PEG BID, (Reported) Hydrocodone/Acetaminophen 1 Each Tablet, 1 TAB PEG Q6H PRN for BREAKTHROUGH PAIN , (Reported) Hydrocodone/Acetaminophen 473 Ml Solution, 7.5 ML PO BID, (Reported) Levothyroxine Sodium 88 Mcg Tablet, 88 MCG PEG DAILY, (Reported) Loperamide HCl 2 Mg Tablet, 2-4 MG PEG Q8H PRN for LOOSE STOOLS, (Reported) Lorazepam 1 Mg Tablet, 1 MG PEG Q4H PRN for AGITATION, (Reported) Loteprednol Etabonate 5 Gm Drops.gel, 1 DROP OD 1800, (Reported) Melatonin 3 Mg Tablet, 3 MG PEG HS, (Reported) Metoprolol Tartrate 50 Mg Tablet, 50 MG PEG BID, (Reported) Nystatin 100,000 Unit/1 Ml Oral.susp, TOP 5XD, (Reported) SWAB ONTON TONGUE 5 TIMES A DAY FOR MOUTH SORENESS Polyvinyl Alcohol/Povidone 15 Ml Drops, 1 DROP OU QID PRN for DRY EYES, ( Reported) Sennosides 8.6 Mg Tablet, 2 TAB PEG DAILY, (Reported) Tramadol HCl 50 Mg Tablet, 50 MG PEG Q6H PRN for PAIN-MODERATE, (Reported) Ziprasidone 40 Mg Cap, 40 MG PO Q12H, (Reported) Patient Home Medication List Home Medication List Reviewed: Yes Past Orurxeb-Tdxjsl-Wpjdkd Hx Patient Social History Marrital Status: Number of Children: 2 Alcohol Use: Denies Use Recreational Drug Use: No Smoking Status: Former Smoker Former Smoker, Quit: Mar 11, 1989 Type Used: Cigarettes 2nd Hand Smoke Exposure: No Recent Foreign Travel: No Contact w/other who traveled: No Recent Hopitalizations: Yes Recent Infectious Disease Expo: No Immunizations Up To Date Date of Pneumonia Vaccine: Nov 12, 2015 Date of Influenza Vaccine: Dec 06, 2015 Seasonal Allergies Seasonal Allergies: No Surgeries Yes (CORNEA TRANSPLANT, MASTOIDECTOMY, eyelid reduction, L TKR, neck, PEG tube) Gallbladder, Joint Replacement, Orthopedic Respiratory Yes (hx of aspiration pneumonia) Cardiovascular Yes (STENTS X2-LAST ONE COUPLE YEARS AGO) Coronary Artery Disease, High Cholesterol, Hypertension Neurological Yes (dysphagia) Dementia Reproductive System Hx Reproductive Disorders: No Sexually Transmitted Disease: No HIV/AIDS: No Genitourinary Yes (joe cath since having sx on cervical spin for stenosis, kidney failure) UTI-Chronic Gastrointestinal Yes (peg tube placement since having sx on cervical spine for stenosis) Chronic Constipation Musculoskeletal Yes (spinal stenosis, oteoarthritis, r/l knee contracture) Arthritis, Chronic Back Pain, Fractures Endocrine History of Endocrine Disorders: No Endocrine Disorders: Hypothyroidsim HEENT History of HEENT Disorders: Yes HEENT Disorders: Glaucoma Loss of Vision: Bilateral Hearing Impairment: Denies Cancer No Psychosocial History of Psychiatric Problem: No Integumentary History of Skin or Integumenta: No Blood Transfusions History of Blood Disorders: No Adverse Reaction to a Blood Tr: No Family Medical History Family Hx: LUNG CANCER G8 BROTHER Myocardial infarction 19 MOTHER Review of Systems Constitutional: see HPI Physical Exam Vital Signs Vital Signs - First Documented 04/19/18 04/19/18 23:15 23:20 Temp 97.4 Pulse 99 Resp 19 B/P (MAP) 141/82 (101) Pulse Ox 100 O2 Delivery NIV Bilevel O2 Flow Rate 21.00 FiO2 100 Capillary Refill : Greater Than 3 Seconds Height, Weight, BMI Height: 6'0.00" Weight: 164lbs. 5.0oz. 74.437907lp; 22.3 BMI Method:Estimated General Appearance: No Apparent Distress (Currently on floor) Eyes: Bilateral Eye Normal Inspection HEENT: Moist Mucous Membranes Neck: Supple Respiratory: Rhonci (Bilaterally) Cardiovascular: Regular Rate, Rhythm Gastrointestinal: Soft Rectal: Deferred Extremity: Normal Capillary Refill Skin: Normal Color Assessment/Plan Assessment and Plan 1. Respiratory distress due to mucous -Following suctioning his respiratory status has improved -Chest x-ray report officially pending 2. Sepsis exclusion -Patient placed on cefepime -Initial lactic acid was not elevated 3. Urinary tract infectionresistant to oral medications -Patient on cefepime and will await culture and sensitivity report 4. Dysphagia -Ongoing and has PEG tube Admission Diagnosis 1. Respiratory distress due to mucous 2. Sepsis exclusion 3. Urinary tract infectionresistant to oral medications 4. Dysphagia Admission Status: Inpatient Order (span 2 midnights) Reason for Inpatient Admission: Patient admitted for further IV antibiotics and IV fluids. Blood cultures obtained Clinical Quality Measures DVT/VTE Risk/Contraindication: Risk Factor Score Per Nursin RFS Level Per Nursing on Admit: 4+=Very High ISI SENA MD Apr 20, 2018 07:22
[2018-04-20] MEDS ORDERED: FLU QUADRIvalent (5+ YOA) 2018-2019 (AFLURIA) 0.5 ML IM ONE (07:45)
[2018-04-20 08:00] VITALS: BP 112/72
--- NOTE | 2018-04-20 08:20 | Diagnostic Imaging Report ---
INDICATION: Respiratory distress. COMPARISON: 02/26/2018. FINDINGS: Single frontal view of the chest demonstrates normal heart size and pulmonary vascularity. The lungs are well aerated and clear. No large pleural effusion or pneumothorax is seen. The visualized osseous structures show no acute abnormalities. IMPRESSION: 1. No acute cardiopulmonary process. Dictated by: Dictated on workstation # [id number]
[2018-04-20] MEDS: CEFEPIME 1 GM/NS 50 ML IV SCH ×4 (09:28→20:17)
[2018-04-20] MEDS ORDERED: IBUP-1780 PEG (09:31)
[2018-04-20] MEDS ORDERED: MAGN400O7 PEG (09:31)
[2018-04-20] MEDS: meTOprolol TARTRATE 25 MG (LOPRESSOR) TABLET PEG SCH ×2 (09:31→20:17)
[2018-04-20] MEDS ORDERED: HYDR473S50 PEG (09:31)
[2018-04-20] MEDS: ZIPRASIDONE 40 MG (GEODON) CAP PEG SCH ×2 (09:31→09:35)
[2018-04-20] MEDS ORDERED: ASPI-999 PEG (09:31)
[2018-04-20] MEDS ORDERED: MELA3TAB52 PEG (09:31)
[2018-04-20] MEDS ORDERED: ACET-2267 PEG (09:32)
[2018-04-20] MEDS: FAMOTIDINE 20 MG (PEPCID) TABLET PEG SCH ×2 (09:32→20:17)
--- NOTE | 2018-04-20 09:37 | NUR ---
UPDATED MED REC WITH PHYSICIAN VISIT FORM FROM [facility]
--- NOTE | 2018-04-20 11:11 | NUR ---
NOTIFIED [facility] AND THEY STATED THAT PT. IS ON JEVITY 1.5 5 X DAILY THROUGH G-TUBE, AND THAT HE DOES NOT TAKE NUTRITION THROUGH HIS MOUTH. HE DOES SUCK ON SUCKERS. MED. SALINAS STATED THAT PT. HAD THE FLU VAC 2017.
--- NOTE | 2018-04-20 11:16 | Diagnostic Imaging Report ---
INDICATION: Respiratory distress. Sepsis. COMPARISON: 04/19/2018 FINDINGS: Single frontal view of the chest demonstrates normal heart size and pulmonary vascularity. The lungs show low inspiratory volumes, but are otherwise clear. No large pleural effusion or pneumothorax is seen. The visualized osseous structures show no acute abnormalities. IMPRESSION: 1. No acute cardiopulmonary process. Dictated by: Dictated on workstation # [id number]
[2018-04-20 12:00] VITALS: BP 110/64
[2018-04-20 16:40] VITALS: BP 113/59
[2018-04-20 19:15] VITALS: BP 136/61
[2018-04-21] VITALS: BP 133/60
[2018-04-21] MEDS: NS IV 1000 ML 1,000 ML IV SCH ×2 (00:43→07:29)
[2018-04-21] MEDS: RT-ALBUTEROL/IPRATROPIUM 3 ML (DUONEB) VIAL INH SCH ×5 (02:34→18:59)
[2018-04-21 04:05] VITALS: BP 142/65
[2018-04-21 05:27] LABS: BASOPHILS % (AUTO) 0 % (0-10); EOSINOPHILS # (AUTO) 0.2 10^3/uL (0.0-0.3); EOSINOPHILS % (AUTO) 3 % (0-10); HEMATOCRIT 24 % (40-54); HEMOGLOBIN 8.1 G/DL (13.3-17.7); LYMPHOCYTES # (AUTO) 1.1 X 10^3 (1.0-4.0); LYMPHOCYTES % (AUTO) 16 % (12-44); MEAN CORPUSCULAR HEMOGLOBIN 32 PG (25-34); MEAN CORPUSCULAR HGB CONC 33 G/DL (32-36); MEAN CORPUSCULAR VOLUME 96 FL (80-99); MONOCYTES # (AUTO) 0.5 X 10^3 (0.0-1.0); MONOCYTES % (AUTO) 7 % (0-12); NEUTROPHILS # (AUTO) 5.1 X 10^3 (1.8-7.8); NEUTROPHILS % (AUTO) 74 % (42-75); PLATELET COUNT 154 10^3/uL (130-400); RED CELL DISTRIBUTION WIDTH 12.8 % (10.0-14.5); WHITE BLOOD COUNT 6.9 10^3/uL (4.3-11.0)
[2018-04-21 05:48] LABS: BUN/CREATININE RATIO 31; CALCIUM 8.6 MG/DL (8.5-10.1); CARBON DIOXIDE 21 MMOL/L (21-32); CHLORIDE 109 MMOL/L (98-107); CREATININE SERUM 0.87 MG/DL (0.60-1.30); GFR ESTIMATED > 60; GLUCOSE 80 MG/DL (70-105); POTASSIUM 3.5 MMOL/L (3.6-5.0); SODIUM 137 MMOL/L (135-145)
[2018-04-21] MEDS: ZIPRASIDONE 40 MG (GEODON) CAP PEG SCH ×2 (06:02→18:32)
[2018-04-21] MEDS: LEVOTHYROXINE 88 MCG (LEVOTHORID) TAB PO SCH (06:02)
[2018-04-21] MEDS: CEFEPIME 1 GM/NS 50 ML IV SCH ×2 (07:24)
[2018-04-21] MEDS: meTOprolol TARTRATE 25 MG (LOPRESSOR) TABLET PEG SCH ×2 (07:29→20:08)
[2018-04-21] MEDS: FAMOTIDINE 20 MG (PEPCID) TABLET PEG SCH ×2 (07:29→20:08)
[2018-04-21 08:16] VITALS: BP 127/60
--- NOTE | 2018-04-21 11:05 | Progress Note-Hospitalist ---
Subjective HPI/CC On Admission Date Seen by Provider: Apr 21, 2018 Time Seen by Provider: 11:30 Subjective/Events-last exam Patient doing well an stable Dysphagia no change Moraxella noted and UCx contaminated do will change back to Rocephin for coverage of that in sputum Review of Systems Neurological: Confusion Focused Exam Lactate Level 04/19/18 23:30: Lactic Acid Level 0.54 Objective Exam Vital Signs Vital Signs Date Time Temp Pulse Resp B/P (MAP) Pulse Ox O2 Delivery O2 Flow Rate FiO2 04/21/18 19:01 97 Nasal Cannula 2.00 04/21/18 16:00 99.3 96 22 141/67 (91) 04/20/18 04:35 30 Capillary Refill : Greater Than 3 Seconds General Appearance: No Apparent Distress, WD/WN, Chronically ill HEENT: Moist Mucous Membranes Neck: Full Range of Motion, Normal Inspection, Non Tender, Supple Respiratory: Lungs Clear, Normal Breath Sounds, Rhonci (Bilaterally) Cardiovascular: Regular Rate, Rhythm, No Edema Gastrointestinal: Soft Rectal: Deferred Extremity: Normal Capillary Refill Neurologic/Psychiatric: 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 Assessment/Plan Assessment and Plan Assess & Plan/Chief Complaint Moraxella in sputum Dementia Dysphagia Plan: Monitor labs Rocephin and DC Cefepime for coverage of bacteria on Cx sputum Diagnosis/Problems Diagnosis/Problems (1) Sepsis Status: Acute Qualifiers: Sepsis type: sepsis due to unspecified organism Qualified Codes: A41.9 - Sepsis, unspecified organism (2) Recurrent aspiration bronchitis/pneumonia Status: Acute (3) Dysphagia Status: Chronic Qualifiers: Dysphagia type: unspecified Qualified Codes: R13.10 - Dysphagia, unspecified (4) Dementia Status: Chronic Qualifiers: Dementia type: Alzheimer's disease Alzheimer's disease onset: unspecified onset Dementia behavioral disturbance: without behavioral disturbance Qualified Codes: G30.9 - Alzheimer's disease, unspecified; F02.80 - Dementia in other diseases classified elsewhere without behavioral disturbance (5) Neurogenic bladder Status: Chronic Clinical Quality Measures DVT/VTE Risk/Contraindication: Risk Factor Score Per Nursin RFS Level Per Nursing on Admit: 4+=Very High JANET GRACIA DO Apr 21, 2018 11:05
[2018-04-21 11:22] VITALS: BP 126/59
[2018-04-21] MEDS: POTASSIUM CHLORIDE INJ 10 MEQ in NS IV 1000 ML 1,000 ML IV SCH (14:24)
[2018-04-21 16:00] VITALS: BP 141/67
[2018-04-21 23:57] VITALS: BP 141/74
[2018-04-22] MEDS: POTASSIUM CHLORIDE INJ 10 MEQ in NS IV 1000 ML 1,000 ML IV SCH ×2 (01:14→14:05)
[2018-04-22] MEDS: RT-ALBUTEROL/IPRATROPIUM 3 ML (DUONEB) VIAL INH SCH ×5 (02:41→19:46)
[2018-04-22] MEDS: LEVOTHYROXINE 88 MCG (LEVOTHORID) TAB PO SCH (06:23)
[2018-04-22] MEDS: cefTRIAXone FOR IV USE 1,000 MG in WATER (STERILE) FOR INJECTION 10 ML IV SCH (06:23)
[2018-04-22] MEDS: ZIPRASIDONE 40 MG (GEODON) CAP PEG SCH ×2 (06:23→18:58)
[2018-04-22 06:28] LABS: BASOPHILS % (AUTO) 0 % (0-10); EOSINOPHILS # (AUTO) 0.2 10^3/uL (0.0-0.3); EOSINOPHILS % (AUTO) 3 % (0-10); HEMATOCRIT 25 % (40-54); HEMOGLOBIN 8.4 G/DL (13.3-17.7); LYMPHOCYTES # (AUTO) 0.9 X 10^3 (1.0-4.0); LYMPHOCYTES % (AUTO) 14 % (12-44); MEAN CORPUSCULAR HEMOGLOBIN 32 PG (25-34); MEAN CORPUSCULAR HGB CONC 33 G/DL (32-36); MEAN CORPUSCULAR VOLUME 95 FL (80-99); MEAN PLATELET VOLUME 11.7 FL (7.4-10.4); MONOCYTES # (AUTO) 0.5 X 10^3 (0.0-1.0); MONOCYTES % (AUTO) 8 % (0-12); NEUTROPHILS # (AUTO) 4.7 X 10^3 (1.8-7.8); NEUTROPHILS % (AUTO) 74 % (42-75); PLATELET COUNT 177 10^3/uL (130-400); RED CELL DISTRIBUTION WIDTH 12.4 % (10.0-14.5); WHITE BLOOD COUNT 6.4 10^3/uL (4.3-11.0)
[2018-04-22 07:09] LABS: ALANINE AMINOTRANSFERASE 13 U/L (0-55); ALBUMIN 3.1 GM/DL (3.2-4.5); ALKALINE PHOSPHATASE 65 U/L (40-136); BUN/CREATININE RATIO 24; CARBON DIOXIDE 18 MMOL/L (21-32); CHLORIDE 110 MMOL/L (98-107); CREATININE SERUM 0.86 MG/DL (0.60-1.30); GFR ESTIMATED > 60; GLUCOSE 80 MG/DL (70-105); POTASSIUM 3.5 MMOL/L (3.6-5.0); SODIUM 138 MMOL/L (135-145); TOTAL PROTEIN 6.3 GM/DL (6.4-8.2)
[2018-04-22 08:00] VITALS: BP 157/78
[2018-04-22] MEDS: FAMOTIDINE 20 MG (PEPCID) TABLET PEG SCH ×2 (11:02→20:43)
[2018-04-22] MEDS: meTOprolol TARTRATE 25 MG (LOPRESSOR) TABLET PEG SCH ×2 (11:02→20:43)
--- NOTE | 2018-04-22 12:01 | Progress Note-Hospitalist ---
Subjective HPI/CC On Admission Date Seen by Provider: Apr 22, 2018 Time Seen by Provider: 11:30 Subjective/Events-last exam Multiple bacteria now surfacing on the sputum and unsure if this is colonization or true infection Patient sleeping most of the time Overall very declined status Denies pain RN has no concerns Will maintain Rocephin since Moraxella surfaced on Cx yesterday but now Pseudomonas and appears yeast along with it suggesting colonization Patient remains AF Review of Systems General: Fatigue Focused Exam Lactate Level 04/19/18 23:30: Lactic Acid Level 0.54 Objective Exam Vital Signs Vital Signs Date Time Temp Pulse Resp B/P (MAP) Pulse Ox O2 Delivery O2 Flow Rate FiO2 04/22/18 10:47 96 Nasal Cannula 2.00 04/22/18 08:00 97.0 92 18 157/78 (104) 04/20/18 04:35 30 Capillary Refill : Greater Than 3 Seconds General Appearance: No Apparent Distress, WD/WN, Chronically ill, Other ( sleeping) HEENT: Moist Mucous Membranes Neck: Full Range of Motion, Normal Inspection, Non Tender, Supple Respiratory: Lungs Clear, Normal Breath Sounds, Rhonci (Bilaterally) Cardiovascular: Regular Rate, Rhythm, No Edema Gastrointestinal: Soft Rectal: Deferred Extremity: Normal Capillary Refill Neurologic/Psychiatric: Other (sleeping) Skin: Normal Color Results/Procedures Lab Laboratory Tests 04/22/18 05:50 Patient resulted labs reviewed. Assessment/Plan Assessment and Plan Assess & Plan/Chief Complaint Moraxella in sputum along with multiple other bacteria on Cx so await until final read on Cx and remain on Rocephin to cover Moraxella since that surfaced yesterday and appears to be the most abundant Dementia Dysphagia Plan: Monitor labs Rocephin and DC Cefepime for coverage of Moraxella on Cx sputum Diagnosis/Problems Diagnosis/Problems (1) Sepsis Status: Acute Qualifiers: Sepsis type: sepsis due to unspecified organism Qualified Codes: A41.9 - Sepsis, unspecified organism (2) Recurrent aspiration bronchitis/pneumonia Status: Acute (3) Dysphagia Status: Chronic Qualifiers: Dysphagia type: unspecified Qualified Codes: R13.10 - Dysphagia, unspecified (4) Dementia Status: Chronic Qualifiers: Dementia type: Alzheimer's disease Alzheimer's disease onset: unspecified onset Dementia behavioral disturbance: without behavioral disturbance Qualified Codes: G30.9 - Alzheimer's disease, unspecified; F02.80 - Dementia in other diseases classified elsewhere without behavioral disturbance (5) Neurogenic bladder Status: Chronic Clinical Quality Measures DVT/VTE Risk/Contraindication: Risk Factor Score Per Nursin RFS Level Per Nursing on Admit: 4+=Very High JANET GARCIA DO Apr 22, 2018 12:01
[2018-04-22 15:42] VITALS: BP 161/96
[2018-04-23] VITALS: BP 150/78
[2018-04-23] MEDS: RT-ALBUTEROL/IPRATROPIUM 3 ML (DUONEB) VIAL INH SCH ×7 (00:19→23:23)
[2018-04-23] MEDS: POTASSIUM CHLORIDE INJ 10 MEQ in NS IV 1000 ML 1,000 ML IV SCH ×3 (00:55→23:44)
[2018-04-23] MEDS: cefTRIAXone FOR IV USE 1,000 MG in WATER (STERILE) FOR INJECTION 10 ML IV SCH (06:16)
[2018-04-23] MEDS: ZIPRASIDONE 40 MG (GEODON) CAP PEG SCH ×2 (06:16→17:55)
[2018-04-23] MEDS: LEVOTHYROXINE 88 MCG (LEVOTHORID) TAB PO SCH (06:16)
[2018-04-23 06:41] LABS: BASOPHILS % (AUTO) 0 % (0-10); EOSINOPHILS # (AUTO) 0.3 10^3/uL (0.0-0.3); EOSINOPHILS % (AUTO) 4 % (0-10); HEMATOCRIT 27 % (40-54); HEMOGLOBIN 9.1 G/DL (13.3-17.7); LYMPHOCYTES # (AUTO) 0.9 X 10^3 (1.0-4.0); LYMPHOCYTES % (AUTO) 13 % (12-44); MEAN CORPUSCULAR HEMOGLOBIN 32 PG (25-34); MEAN CORPUSCULAR HGB CONC 34 G/DL (32-36); MEAN CORPUSCULAR VOLUME 94 FL (80-99); MEAN PLATELET VOLUME 11.6 FL (7.4-10.4); MONOCYTES # (AUTO) 0.6 X 10^3 (0.0-1.0); MONOCYTES % (AUTO) 9 % (0-12); NEUTROPHILS # (AUTO) 4.9 X 10^3 (1.8-7.8); NEUTROPHILS % (AUTO) 74 % (42-75); PLATELET COUNT 198 10^3/uL (130-400); RED CELL DISTRIBUTION WIDTH 11.9 % (10.0-14.5); WHITE BLOOD COUNT 6.7 10^3/uL (4.3-11.0)
[2018-04-23 06:56] VITALS: BP 150/78
[2018-04-23 07:17] LABS: ALANINE AMINOTRANSFERASE 14 U/L (0-55); ALBUMIN 3.1 GM/DL (3.2-4.5); ALKALINE PHOSPHATASE 71 U/L (40-136); BILIRUBIN,TOTAL 0.8 MG/DL (0.1-1.0); BUN/CREATININE RATIO 19; CALCIUM 8.8 MG/DL (8.5-10.1); CARBON DIOXIDE 19 MMOL/L (21-32); CHLORIDE 108 MMOL/L (98-107); CREATININE SERUM 0.81 MG/DL (0.60-1.30); GFR ESTIMATED > 60; GLUCOSE 71 MG/DL (70-105); POTASSIUM 3.5 MMOL/L (3.6-5.0); SODIUM 135 MMOL/L (135-145); TOTAL PROTEIN 6.3 GM/DL (6.4-8.2)
[2018-04-23 07:57] VITALS: BP 170/78
--- NOTE | 2018-04-23 08:12 | Progress Note (SOAP) ---
Subjective Date Seen by a Provider: Apr 23, 2018 Time Seen by a Provider: 07:35 Subjective/Events-last exam Patient alert and communicating fair. He does not complain of any pain Objective Exam Vital Signs Date Time Temp Pulse Resp B/P (MAP) Pulse Ox O2 Delivery O2 Flow Rate FiO2 04/23/18 07:57 98.6 102 18 170/78 (108) 95 Room Air 04/23/18 06:56 98 99 21 04/23/18 06:56 99 Room Air 04/23/18 01:21 94 Room Air 04/23/18 00:00 99.2 98 20 150/78 (102) 96 Room Air 04/22/18 19:50 100 Room Air 04/22/18 15:42 96.8 96 18 161/96 (117) 100 Nasal Cannula 2.00 04/22/18 14:14 97 Room Air 04/22/18 10:47 96 Room Air I & O 04/23/18 07:00 Intake Total 1130 ml Output Total 2250 ml Balance -1120 ml Capillary Refill : Greater Than 3 Seconds General Appearance: No Apparent Distress HEENT: Other (Mucous membranes dry) Neck: Supple Respiratory: Other (Coarse breath sounds) Cardiovascular: Regular Rate, Rhythm Gastrointestinal: soft Results Lab Laboratory Tests 04/23/18 06:02: White Blood Count 6.7, Red Blood Count 2.89L, Hemoglobin 9.1L, Hematocrit 27L, Mean Corpuscular Volume 94, Mean Corpuscular Hemoglobin 32, Mean Corpuscular Hemoglobin Concent 34, Red Cell Distribution Width 11.9, Platelet Count 198, Mean Platelet Volume 11.6H, Neutrophils (%) (Auto) 74, Lymphocytes (%) (Auto) 13 , Monocytes (%) (Auto) 9, Eosinophils (%) (Auto) 4, Basophils (%) (Auto) 0, Neutrophils # (Auto) 4.9, Lymphocytes # (Auto) 0.9L, Monocytes # (Auto) 0.6, Eosinophils # (Auto) 0.3, Basophils # (Auto) 0.0, Sodium Level 135, Potassium Level 3.5L, Chloride Level 108H, Carbon Dioxide Level 19L, Anion Gap 8, Blood Urea Nitrogen 15, Creatinine 0.81, Estimat Glomerular Filtration Rate > 60, BUN/ Creatinine Ratio 19, Glucose Level 71, Calcium Level 8.8, Corrected Calcium 9.5 , Total Bilirubin 0.8, Aspartate Amino Transf (AST/SGOT) 22, Alanine Aminotransferase (ALT/SGPT) 14, Alkaline Phosphatase 71, Total Protein 6.3L, Albumin 3.1L Microbiology 04/19/18 Blood Culture - Preliminary, Resulted No growth 04/19/18 Influenza Types A,B Antigen (DEV) - Final, Complete 04/20/18 Urine Culture - Final, Complete 3 or more isolates YEAST Assessment/Plan Assessment/Plan Assess & Plan/Chief Complaint (1) Sepsis (2) Recurrent aspiration bronchitis/pneumonia -now on rocephin -will plan on discharge [facility] provided afebrile (3) Dysphagia -restart Jevity today 5 cans daily (4) Dementia (5) Neurogenic bladder Clinical Quality Measures Admission Status Admission Dx 1. Respiratory distress due to mucous 2. Sepsis exclusion 3. Urinary tract infectionresistant to oral medications 4. Dysphagia DVT/VTE Risk/Contraindication: Risk Factor Score Per Nursin RFS Level Per Nursing on Admit: 4+=Very High ISI SENA MD Apr 23, 2018 08:12
[2018-04-23] MEDS: FAMOTIDINE 20 MG (PEPCID) TABLET PEG SCH ×2 (10:12→21:54)
[2018-04-23] MEDS: meTOprolol TARTRATE 25 MG (LOPRESSOR) TABLET PEG SCH ×2 (10:12→21:54)
--- NOTE | 2018-04-23 14:58 | Physician Query Clarification ---
PQ-Further Specificity Admission/Discharge Admission Date: Apr 20, 2018 at 01:30 Discharge Date: The medical record reflects the following clinical scenario: History/Risk Factors: Respiratory distress d/t mucous, UTI, Alzheimer's dementia, dysphagia Clinical Findings: T 97.4, P 99, BP 141/82, WBC 12.9, lactic acid .54 Treatment: IV Rocephin Question: Can you further specify if sepsis was present or if sepsis was ruled out per the clinical indicators above? If sepsis ruled out, please indicate the condition responsible for inpatient admission after study. Please document below. 1. Sepsis ruled out 2. Sepsis is a valid diagnosis 3. Other, with explanation of the clinical findings. 4. Clinically undetermined, no explanation for the clinical findings. In responding to this query, please exercise your independent professional judgment. The purpose of this communication is to more accurately reflect the complexity of your patients condition. The fact that a question is asked does not imply that any particular answer is desired or expected. Thank you for your timely response to this clarification. Requestors name: Deejay THIS PHYSICIAN QUERY FORM IS A PERMANENT PART OF THE MEDICAL RECORD DEEJAY ROSALES Apr 23, 2018 14:57
--- NOTE | 2018-04-23 15:04 | Physician Query Clarification ---
PQ-Further Specificity Admission/Discharge Admission Date: Apr 20, 2018 at 01:30 Discharge Date: The medical record reflects the following clinical scenario: History/Risk Factors: respiratory distress d/t mucous, UTI, alzheimer's dementia, dysphagia, hx aspiration pneumonia Clinical Findings: 04/19 and 04/20 CXR no acute cardiopulmonary process, rhonchi, T 97.4, WBC 12.9 Treatment: IV Rocephin, suctioned mucous Question: Can you further specify aspiration pneumonia/bronchitis per the clinical indicators above? Please document below. 1. Aspiration pneumonia/bronchitis ruled out 2. Aspiration pneumonia/bronchitis confirmed diagnosis 3. Other, with explanation of the clinical findings. 4. Clinically undetermined, no explanation for the clinical findings. In responding to this query, please exercise your independent professional judgment. The purpose of this communication is to more accurately reflect the complexity of your patients condition. The fact that a question is asked does not imply that any particular answer is desired or expected. Thank you for your timely response to this clarification. Requestors name: Deejay THIS PHYSICIAN QUERY FORM IS A PERMANENT PART OF THE MEDICAL RECORD DEEJAY ROSALES Apr 23, 2018 15:04
[2018-04-23 16:00] VITALS: BP 164/89
[2018-04-24] VITALS: BP 142/65
[2018-04-24] MEDS: RT-ALBUTEROL/IPRATROPIUM 3 ML (DUONEB) VIAL INH SCH ×3 (02:54→11:07)
[2018-04-24] MEDS: cefTRIAXone FOR IV USE 1,000 MG in WATER (STERILE) FOR INJECTION 10 ML IV SCH (06:25)
[2018-04-24] MEDS: ZIPRASIDONE 40 MG (GEODON) CAP PEG SCH (06:25)
[2018-04-24] MEDS: LEVOTHYROXINE 88 MCG (LEVOTHORID) TAB PO SCH (06:25)
--- NOTE | 2018-04-24 07:37 | Discharge Inst-Skilled Nursing ---
Discharge Inst-Skilled NF Patient Instructions Patient Problems: UTI, Aspiration risk Consult/Follow Up/Orders Follow Up Appt.: Dr Sena in 1 week Skilled NF Admit to: [facility] Certification ([facility]) I certify that SNF services are required to be given on an inpatient basis because of the above named patient's need for long term care on a continuing basis for the conditions(s) for which he/she was receiving inpatient hospital services prior to his/her transfer to the SNF. Intermediate Facility Order: Nursing Services, [employer]-Evaluate & Treat, Physical Therapy-Evaluate & Treat, Speech Language-Evaluate & Treat Oxygen Delivery Method: Room Air Discharge Diet: Other Diet (Jevity 5 cans daily via PEG) Daily Activity as Tolerated: No New & Resume Previous Orders New & Resume Previous Orders 1. ceftriaxone 1gm IV daily for additional 7 days Isi Sena Apr 24, 2018 07:35 ISI SENA MD Apr 24, 2018 07:37
--- NOTE | 2018-04-24 07:41 | Discharge Summary ---
Diagnosis/Chief Complaint Date of Admission Apr 20, 2018 at 01:30 Date of Discharge April 24, 2018 Discharge Date: Apr 24, 2018 Discharge Time: 11:00 Admission Diagnosis Admission Diagnosis 1. Sepsis 2. Urinary tract infection 3. Possible aspiration pneumonia Discharge Diagnosis 1. Sepsis, secondary to number 2 2. Urinary tract infection 3. Aspiration pneumonia excluded 4. 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 According to staff at [facility] he began having a cough as well as breath sounds that were rattly at about 10 o'clock p.m. At that time he was not running any fever. He does have a history of aspiration pneumonia due to dysphagia. [facility] brought patient to emergency department due to the respiratory distress. Apparently he had suctioned 200 mL of sputum and he was placed on high flow oxygen keeping his saturations at 100 percent. Patient has also recently been treated for urinary tract infection resistant to oral medications and he had been on IV Rocephin. Discharge Summary Hospital Course Was the Problem List Reviewed?: Yes Hospital Course Patient was admitted on April 20, 2018 after being transferred to the emergency department from [facility]. Patient apparently had been frothing at the mouth and there was concern that he may be going into respiratory distress. At that time suctioning provided relief. He was noted to be at that time with also urinary tract infection and very suspicious for sepsis. Patient was admitted for further IV antibiotics and was initially started on IV cefepime. He had sputum, blood as well as his urine culture. Ultimately on April 21 he was switched from IV cefepime 2 IV Rocephin when the urine culture result was returned. He was found to have Moraxella catarrhalis as well as pseudomonas aeruginosa. Patient appeared to respond clinically well as his white blood cell count returned to normal. He was afebrile. Overall his mentation improved any communicated the best he could fairly well. He was restarted back on Jevity during the afternoon of April 23, 2018. He did have one spell of what appeared to be aspiration but he did not have any respiratory distress. In the a.m. of April 24, 2018 he was felt ready for dismissal back to [facility] with finishing off his IV Rocephin 1 g daily for the next 7 days. Labs Laboratory Tests 04/22/18 05:50: Red Blood Count 2.66L, Hemoglobin 8.4L, Hematocrit 25L, Mean Platelet Volume 11.7H, Lymphocytes # (Auto) 0.9L, Potassium Level 3.5L, Chloride Level 110H, Carbon Dioxide Level 18L, Blood Urea Nitrogen 21H, Total Protein 6.3L, Albumin 3.1L 04/23/18 06:02: Red Blood Count 2.89L, Hemoglobin 9.1L, Hematocrit 27L, Mean Platelet Volume 11.6H, Lymphocytes # (Auto) 0.9L, Potassium Level 3.5L, Chloride Level 108H, Carbon Dioxide Level 19L, Total Protein 6.3L, Albumin 3.1L Procedures None. Discharge Physical Examination Allergies: Coded Allergies: No Known Drug Allergies (Unverified , 10/25/12) Vitals & I&Os Vital Signs Date Time Temp Pulse Resp B/P (MAP) Pulse Ox O2 Delivery O2 Flow Rate FiO2 04/24/18 06:55 96 Room Air 04/24/18 00:00 95.9 76 18 142/65 (90) 04/23/18 06:56 21 04/22/18 15:42 2.00 General Appearance: No Acute Distress Respiratory: Clear to Auscultation (Mild coarseness) Cardiovascular: Regular Rate Abdominal: Soft Skin: No Rashes Psych/Mental Status: Mental Status NL Discharge Home Medications Reviewed and agree with Discharge Medication list on patient's Discharge Instruction sheet Instructions to Patient/Family Please see electronic discharge instructions given to patient. Clinical Quality Measures DVT/VTE Risk/Contraindication: Risk Factor Score Per Nursin RFS Level Per Nursing on Admit: 4+=Very High ISI SENA MD Apr 24, 2018 07:41
[2018-04-24 08:00] VITALS: BP 152/75
[2018-04-24] MEDS: FAMOTIDINE 20 MG (PEPCID) TABLET PEG SCH (08:36)
[2018-04-24] MEDS: meTOprolol TARTRATE 25 MG (LOPRESSOR) TABLET PEG SCH (08:36)
--- NOTE | 2018-04-24 08:57 | NUR ---
CM/SS notified [facility] that the patient is discharging this day. Faxed all discharge information to [facility]. Tamara with [facility] will return a call with a transportation time.
== END 2018-04-24 13:25 | DRG 872 ==
LOC: EDUNIT# 23:15 → ER 23:18 → 4TH 04-20 01:30
PROVIDERS: ADMIT Family Medicine; ATTEND Family Medicine
DX: A41.9 Sepsis, unspecified organism (principal); N30.00 Acute cystitis without hematuria; R06.03 Acute respiratory distress; J98.09 Other diseases of bronchus, not elsewhere classified; N31.9 Neuromuscular dysfunction of bladder, unspecified; F02.80 Dementia in other diseases classified elsewhere, unspecified severity, without behavioral disturbance, psychotic disturbance, mood disturbance, and anxiety; I10 Essential (primary) hypertension; R13.10 Dysphagia, unspecified; I25.10 Atherosclerotic heart disease of native coronary artery without angina pectoris; E03.9 Hypothyroidism, unspecified; E78.00 Pure hypercholesterolemia, unspecified; H40.9 Unspecified glaucoma; B96.5 Pseudomonas (aeruginosa) (mallei) (pseudomallei) as the cause of diseases classified elsewhere; B96.89 Other specified bacterial agents as the cause of diseases classified elsewhere; Z93.1 Gastrostomy status; Z95.5 Presence of coronary angioplasty implant and graft; Z87.891 Personal history of nicotine dependence
CPT/HCPCS: 36415; 36600; 71045; 80048; 80053; 81000; 82805; 83605; 83880; 85025; 85610; 85730; 86141; 87040; 87070; 87077; 87088; 87186; 87205; 87804; 94640; 94660; 94760; 94799; 96365

== ENCOUNTER 2018-05-04 09:54 | Inpatient (IN) | payer MEDICARE, OTHER ==
[2018-05-04] VITALS (8 sets, daily range): BP systolic 126–141; BP diastolic 61–80
[~2018-05-04] VITALS: Ht 180.3 cm; Wt 73.1 kg
[~2018-05-04 09:54] MED LIST changes: +ACET-2267 PEG; +HYDR473S50 PEG; +IBUP-1780 PEG; +MELA3TAB52 PEG
[2018-05-04] MEDS ORDERED: RT-ALBUTEROL/IPRATROPIUM 3 ML (DUONEB) VIAL ONE (10:04)
--- NOTE | 2018-05-04 10:26 | NUR ---
SEE LIST FOR CURRENT MEDS
[2018-05-04 10:39] LABS: BASOPHILS % (AUTO) 0 % (0-10); EOSINOPHILS % (AUTO) 0 % (0-10); HEMATOCRIT 33 % (40-54); HEMOGLOBIN 10.9 G/DL (13.3-17.7); LYMPHOCYTES # (AUTO) 1.4 X 10^3 (1.0-4.0); LYMPHOCYTES % (AUTO) 8 % (12-44); MEAN CORPUSCULAR HEMOGLOBIN 31 PG (25-34); MEAN CORPUSCULAR HGB CONC 33 G/DL (32-36); MEAN CORPUSCULAR VOLUME 95 FL (80-99); MEAN PLATELET VOLUME 11.4 FL (7.4-10.4); MONOCYTES # (AUTO) 0.8 X 10^3 (0.0-1.0); MONOCYTES % (AUTO) 5 % (0-12); NEUTROPHILS # (AUTO) 15.6 X 10^3 (1.8-7.8); NEUTROPHILS % (AUTO) 87 % (42-75); PLATELET COUNT 335 10^3/uL (130-400); RED CELL DISTRIBUTION WIDTH 12.7 % (10.0-14.5); WHITE BLOOD COUNT 17.9 10^3/uL (4.3-11.0)
--- NOTE | 2018-05-04 10:48 | NUR ---
LACTIC ACID 2.11 DR HIGH NOTIFIED
[2018-05-04 10:54] LABS: ALBUMIN 3.7 GM/DL (3.2-4.5); BILIRUBIN,TOTAL 0.8 MG/DL (0.1-1.0); CALCIUM 9.6 MG/DL (8.5-10.1); CREATININE SERUM 1.29 MG/DL (0.60-1.30); MAGNESIUM 2.1 MG/DL (1.8-2.4); POTASSIUM 4.6 MMOL/L (3.6-5.0); TOTAL PROTEIN 7.7 GM/DL (6.4-8.2)
[2018-05-04 11:02] LABS: BILIRUBIN,URINE NEGATIVE (NEGATIVE); CLARITY,URINE CLEAR; COLOR,URINE YELLOW; GLUCOSE, URINE (UA) NEGATIVE (NEGATIVE); KETONES,URINE NEGATIVE (NEGATIVE); LEUKOCYTE ESTERASE ,URINE 3+ (NEGATIVE); NITRITE,URINE NEGATIVE (NEGATIVE); PH,URINE 6 (5-9); PROTEIN,URINE 2+ (NEGATIVE); UROBILINOGEN,URINE NORMAL (NORMAL)
[2018-05-04 11:11] LABS: BACTERIA,URINE FEW /HPF; SQUAMOUS EPITHELIAL CELL,UR RARE /HPF; WBC,URINE 50-100 /HPF
[2018-05-04 11:12] LABS: HYALINE CASTS, URINE 0-2 /LPF
[2018-05-04 11:35] LABS: BAND NEUTROPHILS 10 %; BASOPHILS % (MANUAL) 0 %; EOSINOPHILS % (MANUAL) 0 %; LYMPHOCYTES % (MANUAL) 7 %; MONOCYTES % (MANUAL) 3 %; NEUTROPHILS % (MANUAL) 80 %; RBC MORPH NORMAL
--- NOTE | 2018-05-04 11:48 | NUR ---
PT OFF C-PAP ON O2 AT 3L
--- NOTE | 2018-05-04 12:13 | Diagnostic Imaging Report ---
EXAMINATION: Frontal chest obtained at 10:40 a.m. and compared to 04/20/2018. FINDINGS: Heart and mediastinal silhouette are normal in appearance. The lungs show no focal infiltrate. There is no pneumothorax or pleural fluid. IMPRESSION: No acute process in the chest. Dictated by: Dictated on workstation # [id number]
--- NOTE | 2018-05-04 12:43 | ED Respiratory ---
General Chief Complaint: Respiratory Problems Stated Complaint: RESP DISTRESS Nursing Triage Note: PT ARRIVED PER EMS PT HAVING RESP DISTRESS, FROM [place], PT IS ON BIPAP UPON ARRIVAL, PT HAD TEMP 102 LAST PM PT HAS FEEDING TUBE, SUPRAPUBIC CATH, AND PT HAS CONTRACTED EXT. PT HAS BILATERALY HEAL PROTECTORS IN PLACE Source: patient Exam Limitations: no limitations History of Present Illness Date Seen by Provider: May 04, 2018 Time Seen by Provider: 12:37 Initial Comments This 82-year-old white male presents with a history of respiratory distress from the [facility]. The patient has had a fever of 102 since last night. The patient has a history of frequent urinary tract infections and frequent pulmonary infections. Patient has a feeding tube. The patient has a suprapubic catheter. The patient several from dementia. The patient is a full code. Patient's sats were in the 80s and the patient was placed on BiPAP by EMS. Patient is unable offer helpful history. Allergies and Home Medications Allergies Coded Allergies: No Known Drug Allergies (Unverified , 10/25/12) Home Medications Acetaminophen 500 Mg Tablet, 1,000 MG PEG Q8H PRN for PAIN-MILD, (Reported) Aspirin 81 Mg Tab.chew, 81 MG PEG DAILY, (Reported) Dorzolamide HCl/Timolol Maleat 10 Ml Drops, 1 DROP OU BID, (Reported) Famotidine 20 Mg Tablet, 20 MG PEG BID, (Reported) Hydrocodone/Acetaminophen 1 Each Tablet, 1 TAB PEG Q6H PRN for BREAKTHROUGH PAIN , (Reported) Hydrocodone/Acetaminophen 473 Ml Solution, 7.5 ML PEG BID, (Reported) Ibuprofen 800 Mg Tablet, 800 MG PEG Q8H PRN for PAIN-MILD, (Reported) Levothyroxine Sodium 88 Mcg Tablet, 88 MCG PEG DAILY, (Reported) Loperamide HCl 2 Mg Tablet, 2-4 MG PEG Q8H PRN for LOOSE STOOLS, (Reported) Lorazepam 1 Mg Tablet, 1 MG PEG Q4H PRN for AGITATION, (Reported) Loteprednol Etabonate 5 Gm Drops.gel, 1 DROP OD 1800, (Reported) Magnesium Hydroxide 400 Mg/5 Ml Oral.susp, 30 ML PEG DAILY PRN for IF NO BM IN 3 DAYS, (Reported) Melatonin 3 Mg Tab.rapdis, 3 MG PEG HS, (Reported) Metoprolol Tartrate 50 Mg Tablet, 50 MG PEG BID, (Reported) Polyvinyl Alcohol/Povidone 15 Ml Drops, 1 DROP OU QID PRN for DRY EYES, ( Reported) Sennosides 8.6 Mg Tablet, 2 TAB PEG DAILY, (Reported) Tramadol HCl 50 Mg Tablet, 50 MG PEG Q6H PRN for PAIN-MODERATE, (Reported) Ziprasidone 40 Mg Cap, 40 MG PEG Q12H, (Reported) Patient Home Medication List Home Medication List Reviewed: Yes Review of Systems Review of Systems Constitutional: No chills; fever, weakness EENTM: no symptoms reported Respiratory: No cough Cardiovascular: No chest pain Gastrointestinal: No abdominal pain, No diarrhea, No vomiting Genitourinary: no symptoms reported, see HPI Musculoskeletal: No back pain Skin: no symptoms reported Psychiatric/Neurological: No Symptoms Reported Hematologic/Lymphatic: No Symptoms Reported Immunological/Allergic: no symptoms reported Past Wmlpeik-Vrcize-Timmbe Hx Past Med/Social Hx: Reviewed Nursing Past Med/Soc Hx Patient Social History Type Used: Cigarettes Former Smoker, Quit: Mar 11, 1989 2nd Hand Smoke Exposure: No Recent Foreign Travel: No Contact w/Someone Who Travel: No Recent Infectious Disease Expo: No Recent Hopitalizations: Yes Immunizations Up To Date Date of Pneumonia Vaccine: Nov 12, 2015 Date of Influenza Vaccine: Dec 06, 2015 Seasonal Allergies Seasonal Allergies: No Past Medical History Surgeries: Yes (CORNEA TRANSPLANT, MASTOIDECTOMY, eyelid reduction, L TKR, neck , PEG tube) Gallbladder, Joint Replacement, Orthopedic Respiratory: Yes (hx of aspiration pneumonia) Cardiac: Yes (STENTS X2-LAST ONE COUPLE YEARS AGO) Coronary Artery Disease, High Cholesterol, Hypertension Neurological: Yes (dysphagia) Dementia Reproductive Disorders: No Sexually Transmitted Disease: No HIV/AIDS: No Genitourinary: Yes (joe cath since having sx on cervical spin for stenosis, kidney failure) UTI-Chronic Gastrointestinal: Yes (peg tube placement since having sx on cervical spine for stenosis) Chronic Constipation Musculoskeletal: Yes (spinal stenosis, oteoarthritis, r/l knee contracture) Arthritis, Chronic Back Pain, Fractures Endocrine: No Hypothyroidsim HEENT: Yes Glaucoma Loss of Vision: Bilateral Hearing Impairment: Denies Cancer: No Psychosocial: No Integumentary: No Blood Disorders: No Adverse Reaction/Blood Tranf: No Family Medical History LUNG CANCER G8 BROTHER Myocardial infarction 19 MOTHER Physical Exam Vital Signs - First Documented 05/04/18 05/04/18 05/04/18 09:54 10:01 10:06 Temp 98.4 Pulse 74 Resp 24 B/P (MAP) 134/80 (98) Pulse Ox 100 O2 Delivery NIV Bilevel O2 Flow Rate 50.00 FiO2 50 Capillary Refill : Less Than 3 Seconds Height: 5'11.00" Weight: 180lbs. 5.0oz. 81.057398cm; 22.3 BMI Method:Estimated General Appearance: mild distress Eyes: Bilateral Eye Normal Inspection HEENT: normal ENT inspection Neck: full range of motion Respiratory: decreased breath sounds Cardiovascular: normal peripheral pulses, regular rate, rhythm Gastrointestinal: normal bowel sounds Extremities: normal range of motion, non-tender Neurologic/Psychiatric: disoriented x 3 Skin: normal color, warm/dry; No rash Focused Exam Lactate Level 05/04/18 10:05: Lactic Acid Level 2.11*H 05/04/18 12:20: Lactic Acid Level Laboratory Tests Test 05/04/18 10:05 05/04/18 12:20 Lactic Acid Level 2.11 MMOL/L (0.50-2.00) *H Progress/Results/Core Measures Suspected Sepsis Recent Fever Within 48 Hours: Yes Infection Criteria Present: Suspected New Infection New/Unexplained Altered Menta: No Sepsis Screen: Possible Sepsis Risk SIRS Temperature:98.4 Pulse: 79 Respiratory Rate: 28 Laboratory Tests 05/04/18 10:05: White Blood Count 17.9H Blood Pressure 134 /80 Mean: 98 05/04/18 10:05: Lactic Acid Level 2.11*H 05/04/18 12:20: Laboratory Tests 05/04/18 10:05: Creatinine 1.29, Platelet Count 335, Total Bilirubin 0.8 Results/Orders Lab Results Laboratory Tests Test 05/04/18 10:05 05/04/18 10:33 05/04/18 12:20 Range/Units White Blood Count 17.9 H 4.3-11.0 10^3/uL Red Blood Count 3.53 L 4.35-5.85 10^6/uL Hemoglobin 10.9 L 13.3-17.7 G/DL Hematocrit 33 L 40-54 % Mean Corpuscular Volume 95 80-99 FL Mean Corpuscular Hemoglobin 31 25-34 PG Mean Corpuscular Hemoglobin Concent 33 32-36 G/DL Red Cell Distribution Width 12.7 10.0-14.5 % Platelet Count 335 130-400 10^3/uL Mean Platelet Volume 11.4 H 7.4-10.4 FL Neutrophils (%) (Auto) 87 H 42-75 % Lymphocytes (%) (Auto) 8 L 12-44 % Monocytes (%) (Auto) 5 0-12 % Eosinophils (%) (Auto) 0 0-10 % Basophils (%) (Auto) 0 0-10 % Neutrophils # (Auto) 15.6 H 1.8-7.8 X 10^3 Lymphocytes # (Auto) 1.4 1.0-4.0 X 10^3 Monocytes # (Auto) 0.8 0.0-1.0 X 10^3 Eosinophils # (Auto) 0.0 0.0-0.3 10^3/uL Basophils # (Auto) 0.0 0.0-0.1 10^3/uL Neutrophils % (Manual) 80 % Lymphocytes % (Manual) 7 % Monocytes % (Manual) 3 % Eosinophils % (Manual) 0 % Basophils % (Manual) 0 % Band Neutrophils 10 % Blood Morphology Comment NORMAL D-Dimer 2.22 H 0.00-0.49 UG/ML Sodium Level 133 L 135-145 MMOL/L Potassium Level 4.6 3.6-5.0 MMOL/L Chloride Level 97 L 98-107 MMOL/L Carbon Dioxide Level 25 21-32 MMOL/L Anion Gap 11 5-14 MMOL/L Blood Urea Nitrogen 36 H 7-18 MG/DL Creatinine 1.29 0.60-1.30 MG/DL Estimat Glomerular Filtration Rate 53 BUN/Creatinine Ratio 28 Glucose Level 118 H 70-105 MG/DL Lactic Acid Level 2.11 *H 0.50-2.00 MMOL/L Calcium Level 9.6 8.5-10.1 MG/DL Corrected Calcium 9.8 8.5-10.1 MG/DL Magnesium Level 2.1 1.8-2.4 MG/DL Total Bilirubin 0.8 0.1-1.0 MG/DL Aspartate Amino Transf (AST/SGOT) 28 5-34 U/L Alanine Aminotransferase (ALT/SGPT) 16 0-55 U/L Alkaline Phosphatase 67 40-136 U/L C-Reactive Protein High Sensitivity 12.17 H 0.00-0.50 MG/DL B-Type Natriuretic Peptide 257.3 H <100.0 PG/ML Total Protein 7.7 6.4-8.2 GM/DL Albumin 3.7 3.2-4.5 GM/DL Urine Color YELLOW Urine Clarity CLEAR Urine pH 6 5-9 Urine Specific [place] 1.015 L 1.016-1.022 Urine Protein 2+ H NEGATIVE Urine Glucose (UA) NEGATIVE NEGATIVE Urine Ketones NEGATIVE NEGATIVE Urine Nitrite NEGATIVE NEGATIVE Urine Bilirubin NEGATIVE NEGATIVE Urine Urobilinogen NORMAL NORMAL MG/DL Urine Leukocyte Esterase 3+ H NEGATIVE Urine RBC (Auto) 2+ H NEGATIVE Urine RBC 2-5 H /HPF Urine WBC 50-100 H /HPF Urine Squamous Epithelial Cells RARE /HPF Urine Crystals NONE /LPF Urine Bacteria FEW H /HPF Urine Casts PRESENT /LPF Urine Hyaline Casts 0-2 H /LPF Urine Mucus NEGATIVE /LPF Urine Culture Indicated YES Micro Results Microbiology 05/04/18 Influenza Types A,B Antigen (DEV) - Final, Complete My Orders Orders - MAGDIEL MURO MD Albuterol/Ipra Inhalation Soln (Duoneb I (05/04/18 10:04) Cbc With Automated Diff (05/04/18 10:29) Comprehensive Metabolic Panel (05/04/18 10:29) BNP (05/04/18 10:29) Blood Culture (05/04/18 10:29) Chest 1 View, Ap/Pa Only (05/04/18 10:29) Hs C Reactive Protein (05/04/18 10:29) Fibrin Degradation Products (05/04/18 10:29) Magnesium (05/04/18 10:29) O2 (05/04/18 10:29) Saline Lock/Iv-Start (05/04/18 10:29) Monitor-Rhythm Ecg Trace Only (05/04/18 10:29) Lactic Acid Analyzer (05/04/18 10:29) Ua Culture If Indicated (05/04/18 10:29) Manual Differential (05/04/18 10:05) Urine Culture (05/04/18 10:33) Influenza A And B Antigens (05/04/18 11:18) Medications Given in ED Current Medications Medications Dose Ordered Sig/Moshe Route Start Time Stop Time Status Last Admin Dose Admin Albuterol/ Ipratropium 3 ml STK-MED ONCE .ROUTE 05/04/18 10:04 05/04/18 10:07 DC 05/04/18 10:12 3 ML Vital Signs/I&O 05/04/18 05/04/18 05/04/18 09:54 10:01 10:06 Temp 98.4 Pulse 74 79 Resp 24 28 B/P (MAP) 134/80 (98) Pulse Ox 100 100 100 O2 Delivery NIV Bilevel O2 Flow Rate 50.00 FiO2 50 Capillary Refill : Less Than 3 Seconds Blood Pressure Mean: 98 Progress Note : Time: 12:43 Progress Note The patient was oxygenating 100 percent on BiPAP. The patient was weaned then placed on supplemental oxygen. His sat was 96 percent. Laboratory evaluation demonstrated an unremarkable chest x-ray for an acute infiltrate. Patient demonstrated a urinary tract infection. His white count was elevated at 17,000. His lactic acid was elevated at 2.2 Probable occult sepsis, urinary tract infection, respiratory distress. Telephone consultation was undertaken with Dr. Sena who felt patient should be hospitalized rather than treated at the [facility]. Dr. Hanks was kind enough to admit this patient to the ICU. Drs. Tripp and Kwame were consulted. Patient was transferred to floor in stable condition. Departure Communication (Admissions) Time/Spoke to Admitting Phy: 12:46 Dr. Hanks Communication (PCP) I visited with . He felt the patient should be treated in the hospital. Impression Primary Impression: Urinary tract infection Qualified Codes: N30.00 - Acute cystitis without hematuria Additional Impressions: Respiratory distress Elevated lactic acid level Disposition: ADMITTED INPATIENT Condition: Unchanged Admissions Decision to Admit Reason: Admit from ER (General) Decision to Admit/Date: May 04, 2018 Time/Decision to Admit Time: 12:47 Departure-Patient Inst. Referrals: ISI SENA MD (PCP/Family) Primary Care Physician MAGDIEL MURO MD May 04, 2018 12:43
--- NOTE | 2018-05-04 13:41 | Pulmonary Consultation ---
History of Present Illness History of Present Illness Date of Consultation 05/04/18 13:35 Time Seen by Provider: 13:35 Date of Admission History of Present Illness 82yo with hx of suprapubic cath, and PEG tube with suprapubic cath presented to ED from [facility] secondary to worsening SOB, hypoxia, and fever of 102. PT has frequent UTIs. Pt was placed on BiPAP secondary to worsening SOB and respiratory failure. I am consulted for pulmonary/ CC management. Allergies and Home Medications Allergies Coded Allergies: No Known Drug Allergies (Unverified , 10/25/12) Home Medications Acetaminophen 500 Mg Tablet, 1,000 MG PEG Q8H PRN for PAIN-MILD, (Reported) Amoxicillin/Potassium Clav 1 Each Tablet, 1 EACH PO BID Prescribed by: ISI SENA on 05/09/18 0715 Aspirin 81 Mg Tab.chew, 81 MG PEG DAILY, (Reported) Dorzolamide HCl/Timolol Maleat 10 Ml Drops, 1 DROP OU BID, (Reported) Famotidine 20 Mg Tablet, 20 MG PEG BID, (Reported) Hydrocodone/Acetaminophen 1 Each Tablet, 1 TAB PEG Q6H PRN for BREAKTHROUGH PAIN , (Reported) Hydrocodone/Acetaminophen 473 Ml Solution, 7.5 ML PEG BID, (Reported) Ibuprofen 800 Mg Tablet, 800 MG PEG Q8H PRN for PAIN-MILD, (Reported) Lactose-Reduced Food/Fiber 237 Ml Liquid, 237 ML PEG 5XD, (Reported) Levothyroxine Sodium 112 Mcg Tablet, 112 MCG PEG 0600, (Reported) Loperamide HCl 2 Mg Tablet, 2-4 MG PEG Q8H PRN for LOOSE STOOLS, (Reported) Lorazepam 1 Mg Tablet, 1 MG PEG Q4H PRN for AGITATION, (Reported) Loteprednol Etabonate 5 Gm Drops.gel, 1 DROP OD 1800, (Reported) Magnesium Hydroxide 400 Mg/5 Ml Oral.susp, 30 ML PEG DAILY PRN for IF NO BM IN 3 DAYS, (Reported) Melatonin 3 Mg Tab.rapdis, 3 MG PEG HS, (Reported) Metoprolol Tartrate 50 Mg Tablet, 50 MG PEG BID, (Reported) HOLD AND NOTIFY PCP IF SBP <100 AND/OR DBP <60 AND/OR PULSE <60 Polyvinyl Alcohol/Povidone 15 Ml Drops, 1 DROP OU QID PRN for DRY EYES, ( Reported) Sennosides 8.6 Mg Tablet, 2 TAB PEG DAILY, (Reported) Tramadol HCl 50 Mg Tablet, 50 MG PEG Q6H PRN for PAIN-MODERATE, (Reported) Ziprasidone 40 Mg Cap, 40 MG PEG Q12H, (Reported) Past Tmabqpi-Mktwaj-Hlivxp Hx Past Med/Social Hx: Reviewed Nursing Past Med/Soc Hx Patient Social History Type Used: Cigarettes Former Smoker, Quit: Mar 11, 1989 2nd Hand Smoke Exposure: No Recent Foreign Travel: No Contact w/Someone Who Travel: No Recent Infectious Disease Expo: No Recent Hopitalizations: Yes Immunizations Up To Date Date of Pneumonia Vaccine: Nov 12, 2015 Date of Influenza Vaccine: Dec 06, 2015 Seasonal Allergies Seasonal Allergies: No Past Medical History Surgeries: Yes (CORNEA TRANSPLANT, MASTOIDECTOMY, eyelid reduction, L TKR, neck , PEG tube) Gallbladder, Joint Replacement, Orthopedic Respiratory: Yes (hx of aspiration pneumonia) Cardiac: Yes (STENTS X2-LAST ONE COUPLE YEARS AGO) Coronary Artery Disease, High Cholesterol, Hypertension Neurological: Yes (dysphagia) Dementia Reproductive Disorders: No Sexually Transmitted Disease: No HIV/AIDS: No Genitourinary: Yes (joe cath since having sx on cervical spin for stenosis, kidney failure) UTI-Chronic Gastrointestinal: Yes (peg tube placement since having sx on cervical spine for stenosis) Chronic Constipation Musculoskeletal: Yes (spinal stenosis, oteoarthritis, r/l knee contracture) Arthritis, Chronic Back Pain, Fractures Endocrine: No Hypothyroidsim HEENT: Yes Glaucoma Loss of Vision: Bilateral Hearing Impairment: Denies Cancer: No Psychosocial: No Integumentary: No Blood Disorders: No Adverse Reaction/Blood Tranf: No Family Medical History LUNG CANCER G8 BROTHER Myocardial infarction 19 MOTHER Review of Systems Time Seen by Provider: 16:00 Constitutional: Fever, Chills, Weakness, Malaise Eyes: No: Pain, Vision change, Conjunctivae inflammation, Eyelid inflammation, Other, Redness ENT: Nose discharge, Nose congestion Respiratory: Cough, Dry, Shortness of breath, SOB with excertion, Wheezing Cardiovascular: Palpitations, Paroxysmal Noc. Dyspnea; No: Chest Pain Neurological: Weakness Sepsis Event Evaluation Height, Weight, BMI Height: 5'11.00" Weight: 180lbs. 5.0oz. [id number]; 22.3 BMI Method:Estimated Exam Exam Vital Signs Date Time Temp Pulse Resp B/P (MAP) Pulse Ox O2 Delivery O2 Flow Rate FiO2 05/04/18 10:06 100 NIV Bilevel 50 05/04/18 10:01 79 28 100 50.00 05/04/18 09:54 98.4 74 24 134/80 (98) 100 Height & Weight Height: 5'11.00" Weight: 180lbs. 5.0oz. 81.161091vj; 22.3 BMI Method:Estimated General Appearance: Moderate Distress HEENT: PERRL/EOMI, Normal ENT Inspection, Pharynx Normal Neck: Full Range of Motion, Non Tender, Supple Respiratory: Accessory Muscle Use, Crackles, Decreased Breath Sounds, Respiratory Distress Cardiovascular: Regular Rate, Rhythm, No Murmur, Normal Peripheral Pulses Capillary Refill: Less Than 3 Seconds Gastrointestinal: normal bowel sounds Extremity: Normal Capillary Refill, Normal Inspection Neurologic/Psychiatric: Alert, Depressed Affect Skin: Normal Color, Warm/Dry Lymphatic: No Adenopathy Results Lab Laboratory Tests 05/04/18 10:05 Assessment/Plan Assessment/Plan Acute on chronic respiratory failure with hypoxia -Continue BipAP -Oxygen -ABG -Influenza is negative UTI with sepsis -Continue Abx -IVF -Lynn culture Metabolic lactic acidosis secondary to sepsis -IVF -Monitor Hyponatremia -Monitor FARIDA DRAPER DO May 04, 2018 13:41
--- NOTE | 2018-05-04 14:00 | NUR ---
DR DRAPER HERE TO SEE PT
[2018-05-04 14:46] LABS: ABG BASE EXCESS 3.8 MMOL/L (-2.5-2.5); ABG OXYGEN SATURATION 96 % (94-100); ABG PCO2 41 MMHG (35-45); ABG PH 7.45 (7.37-7.43); ABG PO2 71 MMHG (79-93); ABG TCO2 29.1 MMOL/L (21.0-31.0)
[2018-05-04 14:50] LABS: ALLENS TEST YES-POS; INSPIRED O2 2L; PATIENT TEMP 97.4; VENTILATOR NO
--- NOTE | 2018-05-04 15:00 | NUR ---
PT PULLED UP IN BED O2 SAT 94% ON 2L PT CONT TO HAVE COUGH AT TIMES
[2018-05-04] MEDS ORDERED: RT-ALBUTEROL/IPRATROPIUM 3 ML (DUONEB) VIAL INH PRN (16:45)
--- NOTE | 2018-05-04 16:45 | NUR ---
ROSALBA SMITH admitted to room CU7-1, with an admitting diagnosis of UTI, on 05/04/18 from AM via cart, accompanied by staff.ROSALBA SMITH introduced to surroundings, call light, bed controls, phone, TV, temperature control, lights, meal times, smoking policy, visitor policy, side rail policy, bathrooms and showers. Patient Rights given to patient in the handbook. ROSALBA SMITH verbalizes understanding that [facility] is not responsible for the loss or damage to any personal effects or valuables that are kept in the patients posession during their hospitalization. The following Patient Care Plans were discussed with the pt: Discharge Planning. ROSALBA SMITH needs reinforcement of Interdisciplinary Patient Education. Patient and/or family were informed about the Rapid Response Team and its purpose.
[2018-05-04] MEDS ORDERED: aCETylcysteine 20% (MUCOMYST) 30ML SOLN VIAL ONE (18:19)
[2018-05-04] MEDS: RT-ALBUTEROL/IPRATROPIUM 3 ML (DUONEB) VIAL INH SCH ×2 (18:36→22:41)
--- NOTE | 2018-05-04 18:39 | Consultation-Cardiology ---
HPI-Cardiology Cardiology Consultation: Date of Consultation 05/04/18 Time Seen by a Provider: 18:10 Date of Admission Attending Physician Kari Hanks DO Admitting Physician Bipin Baldwin MD Consulting Physician KEZIA MORALES MD, MA, FACP, FACC, [facility] [place], CCDS Physician requesting consult: Dr Hanks HPI: Chief Complaint: Reason for consultation: H/o CAD HPI 82 yo man, resident of a local [place], admitted to Dr Hanks today with sepsis suspected to be due UTI and/or pneumonia. Dr Hanks has asked us to see him. He has a h/o CAD. He suffers from dementia and is currently mentally obtunded and is not able to provide any history. One of his daughters was by his bedside. She says that [facility] transferred him to this hospital to Dr Hanks's care because he was aspirating at the [facility] and become more unresponsive. No other history is obtainable. Review of Systems-Cardiology Review of Systems Constitutional: other (A review of systems cannot be obtained due to reasons noted under HPI) EIK-[id number]-[id number] Hx Patient Social History Former smoker/When Quit: Mar 06, 1989 Type Used: Cigarettes 2nd Hand Smoke Exposure: No Recent Foreign Travel: No Recent Infectious Disease Expo: No Hospitalization with Isolation: Denies Immunizations Up To Date Date of Pneumonia Vaccine: Nov 12, 2015 Date of Influenza Vaccine: Dec 06, 2015 Past Medical History PMH As described under Assessment. Family Medical History Family History: LUNG CANCER G8 BROTHER Myocardial infarction 19 MOTHER Allergies and Home Medications Allergies Coded Allergies: No Known Drug Allergies (Unverified , 10/25/12) Home Medications Acetaminophen 500 Mg Tablet, 1,000 MG PEG Q8H PRN for PAIN-MILD, (Reported) Aspirin 81 Mg Tab.chew, 81 MG PEG DAILY, (Reported) Dorzolamide HCl/Timolol Maleat 10 Ml Drops, 1 DROP OU BID, (Reported) Famotidine 20 Mg Tablet, 20 MG PEG BID, (Reported) Hydrocodone/Acetaminophen 1 Each Tablet, 1 TAB PEG Q6H PRN for BREAKTHROUGH PAIN , (Reported) Hydrocodone/Acetaminophen 473 Ml Solution, 7.5 ML PEG BID, (Reported) Ibuprofen 800 Mg Tablet, 800 MG PEG Q8H PRN for PAIN-MILD, (Reported) Levothyroxine Sodium 88 Mcg Tablet, 88 MCG PEG DAILY, (Reported) Loperamide HCl 2 Mg Tablet, 2-4 MG PEG Q8H PRN for LOOSE STOOLS, (Reported) Lorazepam 1 Mg Tablet, 1 MG PEG Q4H PRN for AGITATION, (Reported) Loteprednol Etabonate 5 Gm Drops.gel, 1 DROP OD 1800, (Reported) Magnesium Hydroxide 400 Mg/5 Ml Oral.susp, 30 ML PEG DAILY PRN for IF NO BM IN 3 DAYS, (Reported) Melatonin 3 Mg Tab.rapdis, 3 MG PEG HS, (Reported) Metoprolol Tartrate 50 Mg Tablet, 50 MG PEG BID, (Reported) Polyvinyl Alcohol/Povidone 15 Ml Drops, 1 DROP OU QID PRN for DRY EYES, ( Reported) Sennosides 8.6 Mg Tablet, 2 TAB PEG DAILY, (Reported) Tramadol HCl 50 Mg Tablet, 50 MG PEG Q6H PRN for PAIN-MODERATE, (Reported) Ziprasidone 40 Mg Cap, 40 MG PEG Q12H, (Reported) Patient Home Medication List Home Medication List Reviewed: Yes Physical Exam-Cardiology Physical Exam Vital Signs/I&O 05/04/18 05/04/18 05/04/18 05/04/18 09:54 10:01 10:06 17:00 Temp 98.4 Pulse 74 79 75 Resp 24 28 23 B/P (MAP) 134/80 (98) 131/62 (85) Pulse Ox 100 100 100 94 O2 Delivery NIV Bilevel Nasal Cannula O2 Flow Rate 50.00 2.00 FiO2 50 05/04/18 05/04/18 17:30 18:00 Pulse 74 75 Resp 11 B/P (MAP) 134/63 (86) Pulse Ox 96 O2 Delivery Nasal Cannula O2 Flow Rate 2.00 Capillary Refill : Less Than 3 Seconds Constitutional: other (Verbally unresponsive, breathing through mouth, does not appear to be in distress) HEENT: PERRL; No xanthelasmas are seen Neck: carotid pulses are 2 + bilaterally, with good upstrokes Respiratory: No accessory muscle use; other (fair air entry, diminished at the bases, scattered rhonchi and wheezes) Cardiovascular: regular rate-rhythm, S1 and S2, systolic murmur (soft CUCA at card base) Gastrointestinal: No tender; soft; No guarding, No rebound; audible bowel sounds Extremities: No clubbing, No cyanosis, No significant edema Neurologic/Psychiatric: other (pt is not able to cooperate with a neuro exam; daughter states pt has paraparesis) Skin: warm/dry; No cyanosis, No cool, No rash on exposed areas Data Review Labs Laboratory Tests 05/04/18 10:05: White Blood Count 17.9H, Red Blood Count 3.53L, Hemoglobin 10.9L, Hematocrit 33L , Mean Corpuscular Volume 95, Mean Corpuscular Hemoglobin 31, Mean Corpuscular Hemoglobin Concent 33, Red Cell Distribution Width 12.7, Platelet Count 335, Mean Platelet Volume 11.4H, Neutrophils (%) (Auto) 87H, Lymphocytes (%) (Auto) 8L, Monocytes (%) (Auto) 5, Eosinophils (%) (Auto) 0, Basophils (%) (Auto) 0, Neutrophils # (Auto) 15.6H, Lymphocytes # (Auto) 1.4, Monocytes # (Auto) 0.8, Eosinophils # (Auto) 0.0, Basophils # (Auto) 0.0, Neutrophils % (Manual) 80, Lymphocytes % (Manual) 7, Monocytes % (Manual) 3, Eosinophils % (Manual) 0, Basophils % (Manual) 0, Band Neutrophils 10, Blood Morphology Comment NORMAL, D- Dimer 2.22H, Sodium Level 133L, Potassium Level 4.6, Chloride Level 97L, Carbon Dioxide Level 25, Anion Gap 11, Blood Urea Nitrogen 36H, Creatinine 1.29, Estimat Glomerular Filtration Rate 53, BUN/Creatinine Ratio 28, Glucose Level 118H, Lactic Acid Level 2.11*H, Calcium Level 9.6, Corrected Calcium 9.8, Magnesium Level 2.1, Total Bilirubin 0.8, Aspartate Amino Transf (AST/SGOT) 28, Alanine Aminotransferase (ALT/SGPT) 16, Alkaline Phosphatase 67, C-Reactive Protein High Sensitivity 12.17H, B-Type Natriuretic Peptide 257.3H, Total Protein 7.7, Albumin 3.7 05/04/18 10:33: Urine Color YELLOW, Urine Clarity CLEAR, Urine pH 6, Urine Specific [place] 1.015L, Urine Protein 2+H, Urine Glucose (UA) NEGATIVE, Urine Ketones NEGATIVE, Urine Nitrite NEGATIVE, Urine Bilirubin NEGATIVE, Urine Urobilinogen NORMAL, Urine Leukocyte Esterase 3+H, Urine RBC (Auto) 2+H, Urine RBC 2-5H, Urine WBC 50 -100H, Urine Squamous Epithelial Cells RARE, Urine Crystals NONE, Urine Bacteria FEWH, Urine Casts PRESENT, Urine Hyaline Casts 0-2H, Urine Mucus NEGATIVE, Urine Culture Indicated YES 05/04/18 12:20: Lactic Acid Level 1.06 05/04/18 14:32: Blood Gas Puncture Site L BRACH, Blood Gas Patient Temperature 97.4, Arterial Blood pH 7.45H, Arterial Blood Partial Pressure CO2 41, Arterial Blood Partial Pressure O2 71L, Arterial Blood HCO3 28H, Arterial Blood Total CO2 29.1, Arterial Blood Oxygen Saturation 96, Arterial Blood Base Excess 3.8H, Miguel Test YES-POS, Blood Gas Ventilator Setting NO, Blood Gas Inspired Oxygen 2L Microbiology 05/04/18 Influenza Types A,B Antigen (DEV) - Final, Complete Laboratory Tests 05/04/18 10:05 A/P-Cardiology Assessment/Admission Diagnosis UTI with sepsis H/o cervical spinal stenosis and myelopathy treated with cervical spinal surgery in July 2017 with subsequent dysphagia leading to PEG tube placement H/o paraparesis, 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
[2018-05-04] MEDS ORDERED: ASPIRIN 81 MG CHEW (CHILDREN'S ASA) PO NR (19:00)
[2018-05-04] MEDS ORDERED: CATHETER FLUSH 10 ML SYR IV PRN (19:45)
[2018-05-04] MEDS ORDERED: FLU QUADRIvalent (5+ YOA) 2018-2019 (AFLURIA) 0.5 ML IM ONE (19:45)
[2018-05-04] MEDS: cefTRIAXone 2,000 MG/SWFI 20 ML IV PUSH IV SCH ×2 (20:35)
[2018-05-04] MEDS: NS IV 1000 ML 1,000 ML IV SCH (20:35)
[2018-05-04] MEDS: meTOprolol TARTRATE 25 MG (LOPRESSOR) TABLET PO SCH (20:53)
[2018-05-04] MEDS: aCETylcysteine 20% (MUCOMYST) 30ML SOLN VIAL INH SCH (22:41)
[2018-05-05] VITALS (18 sets, daily range): BP systolic 118–158; BP diastolic 58–92
[2018-05-05] MEDS: RT-ALBUTEROL/IPRATROPIUM 3 ML (DUONEB) VIAL INH SCH ×5 (01:52→18:38)
[2018-05-05 04:16] LABS: BASOPHILS % (AUTO) 0 % (0-10); EOSINOPHILS # (AUTO) 0.2 10^3/uL (0.0-0.3); EOSINOPHILS % (AUTO) 2 % (0-10); HEMATOCRIT 28 % (40-54); HEMOGLOBIN 9.2 G/DL (13.3-17.7); LYMPHOCYTES % (AUTO) 9 % (12-44); MEAN CORPUSCULAR HEMOGLOBIN 31 PG (25-34); MEAN CORPUSCULAR HGB CONC 33 G/DL (32-36); MEAN CORPUSCULAR VOLUME 94 FL (80-99); MEAN PLATELET VOLUME 12.3 FL (7.4-10.4); MONOCYTES # (AUTO) 0.7 X 10^3 (0.0-1.0); MONOCYTES % (AUTO) 7 % (0-12); NEUTROPHILS # (AUTO) 8.6 X 10^3 (1.8-7.8); NEUTROPHILS % (AUTO) 81 % (42-75); PLATELET COUNT 276 10^3/uL (130-400); RED CELL DISTRIBUTION WIDTH 12.8 % (10.0-14.5); WHITE BLOOD COUNT 10.6 10^3/uL (4.3-11.0)
[2018-05-05 04:38] LABS: BUN/CREATININE RATIO 35; CALCIUM 9.5 MG/DL (8.5-10.1); CARBON DIOXIDE 24 MMOL/L (21-32); CHLORIDE 100 MMOL/L (98-107); CREATININE SERUM 1.05 MG/DL (0.60-1.30); GFR ESTIMATED > 60; GLUCOSE 89 MG/DL (70-105); MAGNESIUM 1.9 MG/DL (1.8-2.4); PHOSPHORUS 2.8 MG/DL (2.3-4.7); POTASSIUM 3.8 MMOL/L (3.6-5.0); SODIUM 134 MMOL/L (135-145)
--- NOTE | 2018-05-05 05:41 | Pulmonary Progress Note ---
Subjective Time Seen by a Provider: 06:34 Subjective/Events-last exam Pt is doing better. Sepsis Event Evaluation Height, Weight, BMI Height: 5'11.00" Weight: 180lbs. 0.0oz. 81.201321wi; 25.1 BMI Method:Estimated Focused Exam Lactate Level 05/04/18 10:05: Lactic Acid Level 2.11*H 05/04/18 12:20: Lactic Acid Level 1.06 Exam Exam Vital Signs Date Time Temp Pulse Resp B/P (MAP) Pulse Ox O2 Delivery O2 Flow Rate FiO2 05/05/18 05:00 84 24 126/75 (92) 96 Nasal Cannula 2.00 05/05/18 04:52 Nasal Cannula 05/05/18 04:50 98.6 05/05/18 04:00 91 24 125/70 (88) 97 Nasal Cannula 2.00 05/05/18 03:00 89 22 118/68 (85) 94 Nasal Cannula 2.00 05/05/18 02:00 85 22 134/66 (88) 97 Nasal Cannula 2.00 05/05/18 01:52 96 Nasal Cannula 2.00 05/05/18 01:00 87 05/05/18 01:00 88 22 129/67 (87) 96 Nasal Cannula 2.00 05/05/18 00:15 Nasal Cannula 05/05/18 00:15 99.6 05/05/18 00:00 85 24 120/76 (91) 96 Nasal Cannula 2.00 05/04/18 23:00 82 22 134/61 (85) 96 Nasal Cannula 2.00 05/04/18 22:41 100 Nasal Cannula 2.00 05/04/18 22:00 83 22 129/61 (83) 97 Nasal Cannula 2.00 05/04/18 21:00 93 20 141/72 (95) 94 Nasal Cannula 2.00 05/04/18 20:25 Nasal Cannula 05/04/18 20:25 98.5 05/04/18 20:25 98.5 05/04/18 20:00 84 19 130/66 (87) 97 Nasal Cannula 2.00 05/04/18 19:00 75 20 126/63 (84) 97 Nasal Cannula 2.00 05/04/18 19:00 76 05/04/18 18:36 98 Nasal Cannula 2.00 05/04/18 18:35 Nasal Cannula 2.00 05/04/18 18:00 75 11 134/63 (86) 96 Nasal Cannula 2.00 05/04/18 17:30 74 05/04/18 17:00 75 23 131/62 (85) 94 Nasal Cannula 2.00 05/04/18 10:06 100 NIV Bilevel 50 05/04/18 10:01 79 28 100 50.00 05/04/18 09:54 98.4 74 24 134/80 (98) 100 I & O 05/05/18 07:00 Output Total 900 ml Balance -900 ml Height & Weight Height: 5'11.00" Weight: 180lbs. 0.0oz. 81.797518vg; 25.1 BMI Method:Estimated General Appearance: Anxious, Chronically ill, Cachetic, Thin HEENT: PERRL/EOMI, Normal ENT Inspection, Pharynx Normal Neck: Full Range of Motion, Non Tender, Supple Respiratory: Chest Non Tender, No Accessory Muscle Use, No Respiratory Distress , Decreased Breath Sounds Cardiovascular: Regular Rate, Rhythm, No Edema, No Murmur Capillary Refill: Less Than 3 Seconds Gastrointestinal: normal bowel sounds Extremity: Normal Capillary Refill Neurologic/Psychiatric: Alert Skin: Normal Color, Warm/Dry Lymphatic: No Adenopathy Results Lab Laboratory Tests 05/04/18 10:05 05/05/18 03:10 Assessment/Plan Assessment/Plan Acute on chronic respiratory failure with hypoxia - BipAP PRN -Oxygen -Influenza is negative UTI with sepsis -Continue Abx -IVF -Lynn culture Anemia -Check occult stool -Monitor Metabolic lactic acidosis secondary to sepsis- improved -IVF -Monitor Hyponatremia -Monitor FARIDA DRAPER DO May 05, 2018 05:41
[2018-05-05] MEDS: aCETylcysteine 20% (MUCOMYST) 30ML SOLN VIAL INH SCH ×2 (06:57→15:09)
[2018-05-05] MEDS: MAGNESIUM 1 GM/100 ML IVPB 100 ML IV SCH (07:02)
[2018-05-05] MEDS: POTASSIUM CL 10MEQ/50ML IVPB 50 ML IV SCH (07:02)
[2018-05-05] MEDS: KCL 20 MEQ TAB (K-DUR) PO SCH (07:03)
[2018-05-05] MEDS: meTOprolol TARTRATE 25 MG (LOPRESSOR) TABLET PO SCH ×3 (08:55→22:30)
[2018-05-05] MEDS: ASPIRIN 81 MG CHEW (CHILDREN'S ASA) PO SCH (08:55)
--- NOTE | 2018-05-05 08:56 | Diagnostic Imaging Report ---
INDICATION: Dyspnea. COMPARISON: 05/04/2018. FINDINGS: Bilateral perihilar heterogeneous opacities are unchanged and likely on the basis of subsegmental atelectasis and peribronchial thickening. No pleural effusion or pneumothorax. Cardiac silhouette is not enlarged. IMPRESSION: Bilateral perihilar subsegmental atelectasis without acute process. Dictated by: Dictated on workstation # [id number]
--- NOTE | 2018-05-05 12:33 | History & Physical-Hospitalist ---
History of Present Illness HPI/Chief Complaint CC: Respiratory insufficiency HPI: This is an 82yoWM NHP of Dr Baldwin known to me from recent hospital stay who had [place] and hypoxia at [place] and presented to the ER with respiratory insufficiency requiring biPAP and dx with UTI recurrent in nature. Pt is partially aphasic and cannot provide any details. Patient was monitored in the ICU overnight. Full dose status has been changed after speaking to family member by ICU nurse and he is now no compressions but short term ventilation is still approved. Currently patient has stable and appears to be in no distress. He appears to be a hospice candidate and it is recommended to speak to PCP about this when he returns on Monday. Source: RN/ Exam Limitations: clinical condition, physical impairment (aphasia) Date Seen 05/05/18 Time Seen by a Provider: 11:00 Attending Physician Kari Hanks DO PCP Bipin Baldwin MD Referring Physician Date of Admission May 04, 2018 at 12:57 Home Medications & Allergies Home Medications Reviewed patient Home Medication Reconciliation performed by pharmacy medication reconciliations design technician and/or nursing. Patients Allergies have been reviewed. Allergies Allergies Coded Allergies No Known Drug Allergies (Unverified10/25/12) Past Uimkbyr-Imxszf-Ftlwbi Hx Past Med/Social Hx: Reviewed Nursing Past Med/Soc Hx, Reviewed and Corrections made Patient Social History Marrital Status: single Employed/Student: retired Alcohol Use: Denies Use Recreational Drug Use: No Smoking Status: Unknown if Ever Smoked Former Smoker, Quit: Mar 11, 1989 Type Used: Cigarettes 2nd Hand Smoke Exposure: No Physical Abuse Screen: No Sexual Abuse: No Recent Foreign Travel: No Contact w/other who traveled: No Recent Hopitalizations: Yes Recent Infectious Disease Expo: No Immunizations Up To Date Date of Pneumonia Vaccine: Nov 12, 2015 Date of Influenza Vaccine: Dec 06, 2015 Seasonal Allergies Seasonal Allergies: No Past Medical History Surgeries: Gallbladder, Joint Replacement, Orthopedic Respiratory: Pneumonia Currently Using CPAP: No Currently Using BIPAP: No Cardiac: Coronary Artery Disease, High Cholesterol, Hypertension Neurological: Dementia Reproductive: No Sexually Transmitted Disease: No HIV/AIDS: No Genitourinary: UTI-Chronic Gastrointestinal: Chronic Constipation Musculoskeletal: Arthritis, Chronic Back Pain, Fractures Endocrine: Hypothyroidsim HEENT: Glaucoma Loss of Vision: Bilateral Hearing Impairment: Denies History of Blood Disorders: No Adverse Reaction to Blood Holden: No Family History LUNG CANCER G8 BROTHER Myocardial infarction 19 MOTHER Review of Systems ROS-Unable to Obtain: unable to ascertain Constitutional: see HPI Physical Exam Physical Exam Vital Signs Vital Signs - First Documented 05/04/18 09:54 Temp 98.4 Pulse 74 Resp 24 B/P (MAP) 134/80 (98) Pulse Ox 100 O2 Delivery NIV CPAP O2 Flow Rate 10.00 FiO2 95 Capillary Refill : Less Than 3 Seconds Height, Weight, BMI Height: 5'11.00" Weight: 180lbs. 0.0oz. 81.836463od; 25.1 BMI Method:Estimated General Appearance: No Apparent Distress, WD/WN, Chronically ill, Other ( severely declined, confused, aphasic) HEENT: PERRL/EOMI Neck: Full Range of Motion, Normal Inspection Respiratory: Crackles, Decreased Breath Sounds, Wheezing Cardiovascular: Regular Rate, Rhythm, No Edema Neurologic/Psychiatric: Alert, Disoriented Skin: Normal Color, Warm/Dry Results Results/Procedures Labs Laboratory Tests 05/04/18 10:05 05/05/18 03:10 Patient resulted labs reviewed. Assessment/Plan Admission Diagnosis Assessment: Acute on chronic respiratory failure with hypoxia UTI with sepsis Metabolic lactic acidosis secondary to sepsis Hyponatremia Aphasia PEG tube due to dysphagia Severe debility requiring NH Hospice candidate Plan: Review home meds IV abx Monitor closely Poor prognosis Admission Status: Inpatient Order (span 2 midnights) Reason for Inpatient Admission: Recurrent and resistant UTI will require 4 days inpt Diagnosis/Problems Diagnosis/Problems (1) Urinary tract infection Status: Acute Qualifiers: Urinary tract infection type: acute cystitis Hematuria presence: without hematuria Qualified Codes: N30.00 - Acute cystitis without hematuria (2) Neurogenic bladder Status: Chronic (3) Dementia Status: Chronic Qualifiers: Dementia type: Alzheimer's disease Alzheimer's disease onset: unspecified onset Dementia behavioral disturbance: without behavioral disturbance Qualified Codes: G30.9 - Alzheimer's disease, unspecified; F02.80 - Dementia in other diseases classified elsewhere without behavioral disturbance (4) Dysphagia Status: Chronic Qualifiers: Dysphagia type: unspecified Qualified Codes: R13.10 - Dysphagia, unspecified (5) Chronic renal impairment Onset Date: 05/01/2013 Status: Chronic Clinical Quality Measures DVT/VTE Risk/Contraindication: Risk Factor Score Per Nursin RFS Level Per Nursing on Admit: 4+=Very High HANKS,KARI DO May 05, 2018 12:33
[2018-05-05] MEDS ORDERED: ACETAMINOPHEN 500 MG TAB (TYLENOL) ONE (15:04)
[2018-05-05] MEDS: ACETAMINOPHEN 500 MG TAB (TYLENOL) PO PRN (15:13)
--- NOTE | 2018-05-05 15:30 | NUR ---
REPORT RECEIVED FROM YENY OSPINA.
--- NOTE | 2018-05-05 15:33 | Progress Note-Cardiology ---
Cardiology SOAP Progress Note Subjective: Pt not able to communicate Objective: I&O/Vital Signs 05/05/18 05/05/18 05/05/18 05/05/18 04:00 04:50 04:52 05:00 Temp 98.6 Pulse 91 84 Resp 24 24 B/P (MAP) 125/70 (88) 126/75 (92) Pulse Ox 97 96 O2 Delivery Nasal Cannula Nasal Cannula Nasal Cannula O2 Flow Rate 2.00 2.00 05/05/18 05/05/18 05/05/18 05/05/18 06:00 06:57 07:00 07:00 Pulse 92 112 95 Resp 21 15 B/P (MAP) 134/75 (94) 150/84 (106) Pulse Ox 97 96 97 O2 Delivery Nasal Cannula Nasal Cannula Nasal Cannula O2 Flow Rate 2.00 2.00 2.00 05/05/18 05/05/18 05/05/18 05/05/18 08:00 08:50 08:54 09:00 Temp 98.5 Pulse 91 90 Resp 27 20 B/P (MAP) 124/58 (80) 127/68 (87) Pulse Ox 95 97 99 O2 Delivery Nasal Cannula Nasal Cannula Nasal Cannula O2 Flow Rate 2.00 2.00 2.00 05/05/18 05/05/18 05/05/18 05/05/18 10:00 10:58 11:00 12:00 Pulse 74 80 101 Resp 29 B/P (MAP) 125/69 (87) 143/78 (99) 156/92 (113) Pulse Ox 99 98 98 97 O2 Delivery Nasal Cannula Nasal Cannula Nasal Cannula Nasal Cannula O2 Flow Rate 2.00 2.00 1.00 1.00 05/05/18 05/05/18 05/05/18 05/05/18 12:00 13:00 13:00 14:00 Pulse 98 97 94 Resp 24 B/P (MAP) 158/80 (106) 134/79 (97) Pulse Ox 97 96 94 O2 Delivery Nasal Cannula Nasal Cannula Nasal Cannula O2 Flow Rate 2.00 1.00 1.00 05/05/18 05/05/18 15:00 15:09 Pulse 86 Resp 22 B/P (MAP) 134/75 (94) Pulse Ox 95 96 O2 Delivery Nasal Cannula Nasal Cannula O2 Flow Rate 1.00 1.00 05/05/18 00:00 Output Total 650 ml Balance -650 ml Weight (Pounds): 180 Weight (Ounces): 0.0 Weight (Calculated Kilograms): 81.856824 Constitutional: other (Seems more aler today, still verbally unresponsive, breathing through mouth, does not appear to be in distress) Respiratory: No accessory muscle use; other (fair air entry, diminished at the bases, scattered rhonchi and wheezes) Cardiovascular: regular rate-rhythm, S1 and S2, systolic murmur (soft CUCA at card base) Gastrointestional: No tender; soft; No guarding, No rebound; audible bowel sounds Extremities: No clubbing, No cyanosis, No significant edema Neurologic/Psychiatric: other (pt is not able to cooperate with a neuro exam; daughter states pt has paraparesis) Skin: warm/dry; No cyanosis, No cool, No rash on exposed areas Results/Procedures: Labs Laboratory Tests 05/05/18 03:10: White Blood Count 10.6, Red Blood Count 2.98L, Hemoglobin 9.2L, Hematocrit 28L, Mean Corpuscular Volume 94, Mean Corpuscular Hemoglobin 31, Mean Corpuscular Hemoglobin Concent 33, Red Cell Distribution Width 12.8, Platelet Count 276, Mean Platelet Volume 12.3H, Neutrophils (%) (Auto) 81H, Lymphocytes (%) (Auto) 9L, Monocytes (%) (Auto) 7, Eosinophils (%) (Auto) 2, Basophils (%) (Auto) 0, Neutrophils # (Auto) 8.6H, Lymphocytes # (Auto) 1.0, Monocytes # (Auto) 0.7, Eosinophils # (Auto) 0.2, Basophils # (Auto) 0.0, Sodium Level 134L, Potassium Level 3.8, Chloride Level 100, Carbon Dioxide Level 24, Anion Gap 10, Blood Urea Nitrogen 37H, Creatinine 1.05, Estimat Glomerular Filtration Rate > 60, BUN /Creatinine Ratio 35, Glucose Level 89, Calcium Level 9.5, Phosphorus Level 2.8 , Magnesium Level 1.9 Microbiology 05/04/18 Influenza Types A,B Antigen (DEV) - Final, Complete 05/04/18 Urine Culture - Preliminary, Resulted Enterococcus faecalis Yeast species Laboratory Tests 05/04/18 10:05 05/05/18 03:10 A/P: Assessment: UTI with sepsis H/o cervical spinal stenosis and myelopathy treated with cervical spinal surgery in July 2017 with subsequent dysphagia leading to PEG tube placement H/o paraparesis, apparently due to cervical spinal myelopathy Neurogenic bladder H/o CAD with LAD stenting in Apr 2013 that was patent on subsequent card cath of June 2013 (diffuse mod CAD) H/o hypertension Plan: * Continue current card regimen * Monitor and correct any lab abnormalities KEZIA MORALES MD FACP FAC CCDS May 05, 2018 15:33
[2018-05-05] MEDS: NS IV 1000 ML 1,000 ML IV SCH (15:39)
--- NOTE | 2018-05-05 15:40 | NUR ---
PATIENT BROUGHT TO ROOM 407 VIA HOSPITAL BED ACCOMPANIED BY TWO ABRASIVE WORKER'S. PATIENT ORIENTED TO ROOM AND CALL LIGHT. NO NEEDS AT THIS TIME.
[2018-05-05] MEDS ORDERED: cefTRIAXone 2 GM IV (ROCEPHIN) VIAL ONE (21:35)
[2018-05-05] MEDS ORDERED: WATER (STERILE) FOR INJECTION 20 ML ONE (21:36)
[2018-05-05] MEDS: cefTRIAXone 2,000 MG/SWFI 20 ML IV PUSH IV SCH ×2 (22:28)
[2018-05-06 00:45] VITALS: BP 142/70
[2018-05-06 04:30] VITALS: BP 142/64
[2018-05-06] MEDS: RT-ALBUTEROL/IPRATROPIUM 3 ML (DUONEB) VIAL INH SCH ×7 (04:38→23:49)
[2018-05-06] MEDS: aCETylcysteine 20% (MUCOMYST) 30ML SOLN VIAL INH SCH ×4 (04:38→23:49)
[2018-05-06 04:50] LABS: BASOPHILS % (AUTO) 0 % (0-10); EOSINOPHILS # (AUTO) 0.3 10^3/uL (0.0-0.3); EOSINOPHILS % (AUTO) 3 % (0-10); HEMATOCRIT 26 % (40-54); HEMOGLOBIN 8.8 G/DL (13.3-17.7); LYMPHOCYTES % (AUTO) 12 % (12-44); MEAN CORPUSCULAR HEMOGLOBIN 32 PG (25-34); MEAN CORPUSCULAR HGB CONC 34 G/DL (32-36); MEAN CORPUSCULAR VOLUME 94 FL (80-99); MEAN PLATELET VOLUME 11.9 FL (7.4-10.4); MONOCYTES # (AUTO) 0.7 X 10^3 (0.0-1.0); MONOCYTES % (AUTO) 8 % (0-12); NEUTROPHILS # (AUTO) 6.2 X 10^3 (1.8-7.8); NEUTROPHILS % (AUTO) 76 % (42-75); PLATELET COUNT 260 10^3/uL (130-400); RED CELL DISTRIBUTION WIDTH 12.6 % (10.0-14.5); WHITE BLOOD COUNT 8.2 10^3/uL (4.3-11.0)
[2018-05-06 05:07] LABS: BUN/CREATININE RATIO 28; CALCIUM 9.3 MG/DL (8.5-10.1); CARBON DIOXIDE 24 MMOL/L (21-32); CHLORIDE 102 MMOL/L (98-107); CREATININE SERUM 0.93 MG/DL (0.60-1.30); GFR ESTIMATED > 60; GLUCOSE 96 MG/DL (70-105); MAGNESIUM 1.7 MG/DL (1.8-2.4); PHOSPHORUS 2.5 MG/DL (2.3-4.7); POTASSIUM 3.6 MMOL/L (3.6-5.0); SODIUM 136 MMOL/L (135-145)
[2018-05-06] MEDS: POTASSIUM CL 10MEQ/50ML IVPB 50 ML IV SCH (05:32)
[2018-05-06] MEDS: KCL 20 MEQ TAB (K-DUR) PO SCH (05:33)
[2018-05-06] MEDS: MAGNESIUM 1 GM/100 ML IVPB 100 ML IV SCH (05:33)
[2018-05-06 08:00] VITALS: BP 143/68
[2018-05-06] MEDS: ASPIRIN 81 MG CHEW (CHILDREN'S ASA) PO SCH (08:05)
[2018-05-06] MEDS: meTOprolol TARTRATE 25 MG (LOPRESSOR) TABLET PO SCH ×3 (08:05→21:26)
[2018-05-06] MEDS: ACETAMINOPHEN 500 MG TAB (TYLENOL) PO PRN ×2 (09:29→21:26)
[2018-05-06] MEDS: NS IV 1000 ML 1,000 ML IV SCH (11:30)
--- NOTE | 2018-05-06 12:53 | Progress Note-Hospitalist ---
Subjective HPI/CC On Admission Date Seen by Provider: May 06, 2018 Time Seen by Provider: 11:15 CC: Respiratory insufficiency HPI: This is an 82yoWM NHP of Dr Baldwin known to me from recent hospital stay who had AMS and hypoxia at [place] and presented to the ER with respiratory insufficiency requiring biPAP and dx with UTI recurrent in nature. Pt is partially aphasic and cannot provide any details. Patient was monitored in the ICU overnight. Full dose status has been changed after speaking to family member by ICU nurse and he is now no compressions but short term ventilation is still approved. Currently patient has stable and appears to be in no distress. He appears to be a hospice candidate and it is recommended to speak to PCP about this when he returns on Monday. Subjective/Events-last exam Hollering out and becoming agitated Gave orders of low-dose Haldol, Ativan and Roxanol Patient appears to be aspirating on his saliva production We will keep head of bed elevated but unsure of the capability of preventing aspiration since he is already on PEG tube feedings Appears to be in slight distress at times when he is agitated Very poor prognosis Review of Systems Pulmonary: Cough Neurological: Confusion Focused Exam Lactate Level 05/04/18 10:05: Lactic Acid Level 2.11*H 05/04/18 12:20: Lactic Acid Level 1.06 Objective Exam Vital Signs Vital Signs Date Time Temp Pulse Resp B/P (MAP) Pulse Ox O2 Delivery O2 Flow Rate FiO2 05/06/18 16:52 99.2 90 21 165/75 (105) 96 Room Air 05/06/18 06:49 0.50 05/04/18 10:06 50 Capillary Refill : Less Than 3 Seconds General Appearance: WD/WN, Anxious, Chronically ill, Mild Distress, Other ( severely declined, confused, aphasic) HEENT: PERRL/EOMI Neck: Full Range of Motion, Normal Inspection Respiratory: Crackles, Decreased Breath Sounds, Wheezing Cardiovascular: Regular Rate, Rhythm, No Edema Extremity: Normal Capillary Refill Neurologic/Psychiatric: Alert, Disoriented Skin: Normal Color, Warm/Dry Lymphatic: No Adenopathy Results/Procedures Lab Laboratory Tests 05/06/18 03:55 Patient resulted labs reviewed. Assessment/Plan Assessment and Plan Assess & Plan/Chief Complaint Assessment: Acute on chronic respiratory failure with hypoxia UTI with sepsis Metabolic lactic acidosis secondary to sepsis Hyponatremia Aphasia PEG tube due to dysphagia Severe debility requiring NH Hospice candidate Aspiration of saliva? Agitation and aggression with delirium Plan: Reviewed home meds IV abx Monitor closely Poor prognosis Likely needs hospice Roxanol, Haldo and Ativan orders given due to severe agitation from severe dementia Diagnosis/Problems Diagnosis/Problems (1) Urinary tract infection Status: Acute Qualifiers: Urinary tract infection type: acute cystitis Hematuria presence: without hematuria Qualified Codes: N30.00 - Acute cystitis without hematuria (2) Neurogenic bladder Status: Chronic (3) Dementia Status: Chronic Qualifiers: Dementia type: Alzheimer's disease Alzheimer's disease onset: unspecified onset Dementia behavioral disturbance: without behavioral disturbance Qualified Codes: G30.9 - Alzheimer's disease, unspecified; F02.80 - Dementia in other diseases classified elsewhere without behavioral disturbance (4) Dysphagia Status: Chronic Qualifiers: Dysphagia type: unspecified Qualified Codes: R13.10 - Dysphagia, unspecified (5) Chronic renal impairment Onset Date: 05/01/2013 Status: Chronic (6) Aspiration into lower respiratory tract Status: Acute Qualifiers: Encounter type: initial encounter Qualified Codes: T17.800A - Unspecified foreign body in other parts of respiratory tract causing asphyxiation, initial encounter (7) Delirium Status: Acute (8) Cough Status: Acute Clinical Quality Measures DVT/VTE Risk/Contraindication: Risk Factor Score Per Nursin RFS Level Per Nursing on Admit: 4+=Very High JANET GARCIA DO May 06, 2018 12:53
[2018-05-06] MEDS ORDERED: morphine (ROXINOL) 10 MG/0.5 ML oral conc 0.5 ML PO PRN (13:30)
[2018-05-06] MEDS ORDERED: HALOPERIDOL 5 MG/ML (HALDOL) AMP IM PRN (13:30)
[2018-05-06] MEDS: LORazepam INJ 2 MG/ML (ATIVAN) VIAL IVP PRN (13:50)
--- NOTE | 2018-05-06 15:03 | Progress Note-Cardiology ---
Cardiology SOAP Progress Note Subjective: Not able to provide any history Objective: I&O/Vital Signs 05/06/18 05/06/18 05/06/18 05/06/18 04:30 06:49 08:00 08:00 Temp 99.6 99.1 Pulse 88 91 Resp 22 20 B/P (MAP) 142/64 (90) 143/68 (93) Pulse Ox 96 94 96 O2 Delivery Nasal Cannula Nasal Cannula Room Air Room Air O2 Flow Rate 0.50 0.50 05/06/18 05/06/18 10:51 14:24 Pulse Ox 92 93 O2 Delivery Room Air Room Air 05/06/18 00:00 Intake Total 1233 ml Output Total 500 ml Balance 733 ml Weight (Pounds): 160 Weight (Ounces): 6.0 Weight (Calculated Kilograms): 72.115950 Constitutional: other (Seems more aler today, still verbally unresponsive, breathing through mouth, does not appear to be in distress) Respiratory: No accessory muscle use; other (fair air entry, diminished at the bases, scattered rhonchi and wheezes) Cardiovascular: regular rate-rhythm, S1 and S2, systolic murmur (soft CUCA at card base) Gastrointestional: No tender; soft; No guarding, No rebound; audible bowel sounds Extremities: No clubbing, No cyanosis, No significant edema Neurologic/Psychiatric: other (pt is not able to cooperate with a neuro exam; daughter states pt has paraparesis) Skin: warm/dry; No cyanosis, No cool, No rash on exposed areas Results/Procedures: Labs Laboratory Tests 05/06/18 03:55: White Blood Count 8.2, Red Blood Count 2.79L, Hemoglobin 8.8L, Hematocrit 26L, Mean Corpuscular Volume 94, Mean Corpuscular Hemoglobin 32, Mean Corpuscular Hemoglobin Concent 34, Red Cell Distribution Width 12.6, Platelet Count 260, Mean Platelet Volume 11.9H, Neutrophils (%) (Auto) 76H, Lymphocytes (%) (Auto) 12, Monocytes (%) (Auto) 8, Eosinophils (%) (Auto) 3, Basophils (%) (Auto) 0, Neutrophils # (Auto) 6.2, Lymphocytes # (Auto) 1.0, Monocytes # (Auto) 0.7, Eosinophils # (Auto) 0.3, Basophils # (Auto) 0.0, Sodium Level 136, Potassium Level 3.6, Chloride Level 102, Carbon Dioxide Level 24, Anion Gap 10, Blood Urea Nitrogen 26H, Creatinine 0.93, Estimat Glomerular Filtration Rate > 60, BUN /Creatinine Ratio 28, Glucose Level 96, Calcium Level 9.3, Phosphorus Level 2.5 , Magnesium Level 1.7L Microbiology 05/04/18 Blood Culture - Preliminary, Resulted No growth 05/04/18 MRSA Screen - Final, Complete MRSA not isolated 05/04/18 Urine Culture - Preliminary, Resulted Enterococcus faecalis Yeast species Laboratory Tests 05/05/18 03:10 05/06/18 03:55 A/P: Assessment: UTI with sepsis H/o cervical spinal stenosis and myelopathy treated with cervical spinal surgery in July 2017 with subsequent dysphagia leading to PEG tube placement H/o paraparesis, 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
[2018-05-06 16:52] VITALS: BP 165/75
[2018-05-06] MEDS ORDERED: cefTRIAXone 2 GM IV (ROCEPHIN) VIAL ONE (21:14)
[2018-05-06] MEDS ORDERED: WATER (STERILE) FOR INJECTION 20 ML ONE (21:14)
[2018-05-06] MEDS: cefTRIAXone 2,000 MG/SWFI 20 ML IV PUSH IV SCH ×2 (21:26)
[2018-05-07] VITALS: BP_SYST 126; BP_SYST 145; BP_DIAS 66; BP_DIAS 96
[2018-05-07] MEDS: RT-ALBUTEROL/IPRATROPIUM 3 ML (DUONEB) VIAL INH SCH ×5 (03:33→23:29)
[2018-05-07] MEDS: LORazepam INJ 2 MG/ML (ATIVAN) VIAL IVP PRN (04:12)
[2018-05-07 05:02] LABS: BASOPHILS % (AUTO) 0 % (0-10); EOSINOPHILS # (AUTO) 0.3 10^3/uL (0.0-0.3); EOSINOPHILS % (AUTO) 5 % (0-10); HEMATOCRIT 27 % (40-54); HEMOGLOBIN 8.8 G/DL (13.3-17.7); LYMPHOCYTES # (AUTO) 1.2 X 10^3 (1.0-4.0); LYMPHOCYTES % (AUTO) 21 % (12-44); MEAN CORPUSCULAR HEMOGLOBIN 31 PG (25-34); MEAN CORPUSCULAR HGB CONC 33 G/DL (32-36); MEAN CORPUSCULAR VOLUME 94 FL (80-99); MEAN PLATELET VOLUME 11.5 FL (7.4-10.4); MONOCYTES # (AUTO) 0.6 X 10^3 (0.0-1.0); MONOCYTES % (AUTO) 10 % (0-12); NEUTROPHILS # (AUTO) 3.7 X 10^3 (1.8-7.8); NEUTROPHILS % (AUTO) 64 % (42-75); PLATELET COUNT 257 10^3/uL (130-400); RED CELL DISTRIBUTION WIDTH 12.2 % (10.0-14.5); WHITE BLOOD COUNT 5.8 10^3/uL (4.3-11.0)
[2018-05-07 05:18] LABS: BUN/CREATININE RATIO 21; CALCIUM 9.3 MG/DL (8.5-10.1); CARBON DIOXIDE 22 MMOL/L (21-32); CHLORIDE 104 MMOL/L (98-107); CREATININE SERUM 0.85 MG/DL (0.60-1.30); GFR ESTIMATED > 60; GLUCOSE 88 MG/DL (70-105); MAGNESIUM 1.7 MG/DL (1.8-2.4); PHOSPHORUS 2.6 MG/DL (2.3-4.7); POTASSIUM 3.4 MMOL/L (3.6-5.0); SODIUM 136 MMOL/L (135-145)
[2018-05-07] MEDS: NS IV 1000 ML 1,000 ML IV SCH (06:45)
[2018-05-07] MEDS: aCETylcysteine 20% (MUCOMYST) 30ML SOLN VIAL INH SCH ×3 (07:07→23:28)
--- NOTE | 2018-05-07 07:18 | Progress Note (SOAP) ---
Subjective Date Seen by a Provider: May 07, 2018 Time Seen by a Provider: 07:20 Subjective/Events-last exam Patient opened eyes and responded with one word answers. It is unclear if her fully understood questions. Will need to talk with his son regarding hospice. Focused Exam Lactate Level 05/04/18 10:05: Lactic Acid Level 2.11*H 05/04/18 12:20: Lactic Acid Level 1.06 Objective Exam Vital Signs Date Time Temp Pulse Resp B/P (MAP) Pulse Ox O2 Delivery O2 Flow Rate FiO2 05/07/18 07:07 96 Room Air 05/07/18 03:33 96 Room Air 05/07/18 00:00 100.7 81 23 126/96 (106) 94 Room Air 05/06/18 20:00 Room Air 05/06/18 16:52 99.2 90 21 165/75 (105) 96 Room Air 05/06/18 14:24 93 Room Air 05/06/18 10:51 92 Room Air 05/06/18 08:00 99.1 91 20 143/68 (93) 96 Room Air 05/06/18 08:00 Room Air I & O 05/07/18 07:00 Intake Total 2583 ml Output Total 1350 ml Balance 1233 ml Capillary Refill : Less Than 3 Seconds General Appearance: No Apparent Distress Neck: Supple Respiratory: Lungs Clear (overall) Cardiovascular: Regular Rate, Rhythm Gastrointestinal: soft Extremity: No Calf Tenderness, No Pedal Edema Skin: Warm/Dry Results Lab Laboratory Tests 05/07/18 04:20: White Blood Count 5.8, Red Blood Count 2.87L, Hemoglobin 8.8L, Hematocrit 27L, Mean Corpuscular Volume 94, Mean Corpuscular Hemoglobin 31, Mean Corpuscular Hemoglobin Concent 33, Red Cell Distribution Width 12.2, Platelet Count 257, Mean Platelet Volume 11.5H, Neutrophils (%) (Auto) 64, Lymphocytes (%) (Auto) 21 , Monocytes (%) (Auto) 10, Eosinophils (%) (Auto) 5, Basophils (%) (Auto) 0, Neutrophils # (Auto) 3.7, Lymphocytes # (Auto) 1.2, Monocytes # (Auto) 0.6, Eosinophils # (Auto) 0.3, Basophils # (Auto) 0.0, Sodium Level 136, Potassium Level 3.4L, Chloride Level 104, Carbon Dioxide Level 22, Anion Gap 10, Blood Urea Nitrogen 18, Creatinine 0.85, Estimat Glomerular Filtration Rate > 60, BUN/ Creatinine Ratio 21, Glucose Level 88, Calcium Level 9.3, Phosphorus Level 2.6, Magnesium Level 1.7L Microbiology 05/04/18 Blood Culture - Preliminary, Resulted No growth 05/04/18 MRSA Screen - Final, Complete MRSA not isolated 05/04/18 Urine Culture - Preliminary, Resulted Enterococcus faecalis Yeast species Assessment/Plan Assessment/Plan Assess & Plan/Chief Complaint 1. Acute on chronic respiratory failure with hypoxia-likely aspiration -bipap on admission and now off - currently on RA 2. UTI with sepsis - enterococcus facaelis -ceftriaxone day 4 3. Metabolic lactic acidosis secondary to sepsis -corrected 4. Hyponatremia -monitoring and improved now 5. Aphasia -Speech therapy continues O/P at NH 6. PEG tube due to dysphagia 7. Severe debility requiring NH 8. [facility] Measures DVT/VTE Risk/Contraindication: Risk Factor Score Per Nursin RFS Level Per Nursing on Admit: 4+=Very High ISI SENA MD May 07, 2018 07:18
[2018-05-07 08:00] VITALS: BP 162/73
--- NOTE | 2018-05-07 08:10 | Pulmonary Progress Note ---
Subjective Time Seen by a Provider: 08:10 Subjective/Events-last exam Pt appears to be improving. No complications noted. Sepsis Event Evaluation Height, Weight, BMI Height: 5'11.00" Weight: 161lbs. 9.0oz. 73.773430xa; 25.1 BMI Method:Estimated Focused Exam Lactate Level 05/04/18 10:05: Lactic Acid Level 2.11*H 05/04/18 12:20: Lactic Acid Level 1.06 Exam Exam Vital Signs Date Time Temp Pulse Resp B/P (MAP) Pulse Ox O2 Delivery O2 Flow Rate FiO2 05/07/18 07:07 96 Room Air 05/07/18 03:33 96 Room Air 05/07/18 00:00 100.7 81 23 126/96 (106) 94 Room Air 05/06/18 20:00 Room Air 05/06/18 16:52 99.2 90 21 165/75 (105) 96 Room Air 05/06/18 14:24 93 Room Air 05/06/18 10:51 92 Room Air I & O 05/07/18 07:00 Intake Total 2583 ml Output Total 1350 ml Balance 1233 ml Height & Weight Height: 5'11.00" Weight: 161lbs. 9.0oz. 73.089821mz; 25.1 BMI Method:Estimated General Appearance: No Apparent Distress HEENT: PERRL/EOMI Neck: Supple Respiratory: Lungs Clear (overall) Cardiovascular: Regular Rate, Rhythm Capillary Refill: Less Than 3 Seconds Gastrointestinal: soft Extremity: No Calf Tenderness, No Pedal Edema Neurologic/Psychiatric: Alert, Disoriented Skin: Warm/Dry Lymphatic: No Adenopathy Results Lab Laboratory Tests 05/06/18 03:55 05/07/18 04:20 Assessment/Plan Assessment/Plan Pneumonia - CXR shows parahilar infiltrates - PNA is improving -- 96%on RA currently -Hep lock IVF -Influenza is negative -Zosyn -MRSA not isolated - leukocytosis - improved Hypokalemia -replace UTI with sepsis -Continue Abx -IVF -Lynn culture Anemia -Check occult stool -Monitor Hyponatremia -Monitor FARIDA DRAPER DO May 07, 2018 08:10
[2018-05-07] MEDS ORDERED: KCL 20 MEQ TAB (K-DUR) PO NR (08:15)
[2018-05-07] MEDS: ASPIRIN 81 MG CHEW (CHILDREN'S ASA) PO SCH (09:47)
[2018-05-07] MEDS: meTOprolol TARTRATE 25 MG (LOPRESSOR) TABLET PO SCH ×3 (09:48→20:00)
--- NOTE | 2018-05-07 10:59 | Progress Note-Cardiology ---
Cardiology SOAP Progress Note Subjective: Unable to obtain any information from pt. No visible signs of distress Objective: I&O/Vital Signs 05/07/18 05/07/18 05/07/18 05/07/18 07:07 08:00 08:15 10:24 Temp 97.8 Pulse 91 Resp 24 B/P (MAP) 162/73 (102) Pulse Ox 96 95 96 O2 Delivery Room Air Room Air Room Air Room Air 05/07/18 00:00 Intake Total 1212 ml Output Total 1050 ml Balance 162 ml Weight (Pounds): 161 Weight (Ounces): 9.0 Weight (Calculated Kilograms): 73.108725 Constitutional: other (Seems more aler today, still verbally unresponsive, breathing through mouth, does not appear to be in distress) Respiratory: No accessory muscle use; other (fair air entry, diminished at the bases, scattered rhonchi and wheezes) Cardiovascular: regular rate-rhythm, S1 and S2, systolic murmur (soft CUCA at card base) Gastrointestional: No tender; soft; No guarding, No rebound; audible bowel sounds Extremities: No clubbing, No cyanosis, No significant edema Neurologic/Psychiatric: other (pt is not able to cooperate with a neuro exam; daughter states pt has paraparesis) Skin: warm/dry; No cyanosis, No cool, No rash on exposed areas Results/Procedures: Labs Laboratory Tests 05/07/18 04:20: White Blood Count 5.8, Red Blood Count 2.87L, Hemoglobin 8.8L, Hematocrit 27L, Mean Corpuscular Volume 94, Mean Corpuscular Hemoglobin 31, Mean Corpuscular Hemoglobin Concent 33, Red Cell Distribution Width 12.2, Platelet Count 257, Mean Platelet Volume 11.5H, Neutrophils (%) (Auto) 64, Lymphocytes (%) (Auto) 21 , Monocytes (%) (Auto) 10, Eosinophils (%) (Auto) 5, Basophils (%) (Auto) 0, Neutrophils # (Auto) 3.7, Lymphocytes # (Auto) 1.2, Monocytes # (Auto) 0.6, Eosinophils # (Auto) 0.3, Basophils # (Auto) 0.0, Sodium Level 136, Potassium Level 3.4L, Chloride Level 104, Carbon Dioxide Level 22, Anion Gap 10, Blood Urea Nitrogen 18, Creatinine 0.85, Estimat Glomerular Filtration Rate > 60, BUN/ Creatinine Ratio 21, Glucose Level 88, Calcium Level 9.3, Phosphorus Level 2.6, Magnesium Level 1.7L Microbiology 05/04/18 Blood Culture - Preliminary, Resulted No growth 05/04/18 MRSA Screen - Final, Complete MRSA not isolated 05/04/18 Urine Culture - Final, Complete Enterococcus faecalis Yeast species Laboratory Tests 05/06/18 03:55 05/07/18 04:20 A/P: Assessment: UTI with sepsis H/o cervical spinal stenosis and myelopathy treated with cervical spinal surgery in July 2017 with subsequent dysphagia leading to PEG tube placement H/o paraparesis, apparently due to cervical spinal myelopathy Neurogenic bladder H/o CAD with LAD stenting in Apr 2013 that was patent on subsequent card cath of June 2013 (diffuse mod CAD) Hypertension Electrolyte abnormalities Plan: * Continue current card regimen * Monitor and correct any lab abnormalities * Replace Mag and Potassium Physician Assessment Physician Assessment Not able to provide any history Appears comfortable Lungs: fair air entry, diminished at the bases Cor: reg Ext: no c/c/e A&R * As documented in our note above that I updated (italics) and as noted below * Correct lytes * Follow labs CHANCE CARRENO [employer] May 07, 2018 10:59 KEZIA MORALES MD [facility] May 07, 2018 16:55
[2018-05-07] MEDS ORDERED: LEVO112T55 PEG (12:57)
[2018-05-07] MEDS ORDERED: LACT-72 PEG (12:57)
--- NOTE | 2018-05-07 12:57 | NUR ---
UPDATED MED REC WITH PHYSICIAN'S ORDERS FROM [facility].
--- NOTE | 2018-05-07 13:56 | NUR ---
DISCUSSED WITH DR SENA ABOUT CULTURES/SENS. IN URINE, CHANGE TO AMPICILLIN/SULBACTAM 1.5 GRAMS IV Q 8 HOURS,
--- NOTE | 2018-05-07 14:00 | NUR ---
Pastoral care visit, provided support and prayer.
[2018-05-07] MEDS: AMPICILLIN/SULBACTAM 1.5 GM/NS 100 ML IVPB IV SCH ×4 (14:53→21:45)
[2018-05-07 16:30] VITALS: BP 157/76
[2018-05-07] MEDS: ACETAMINOPHEN 500 MG TAB (TYLENOL) PO PRN (20:01)
[2018-05-07 23:45] VITALS: BP 144/65
[2018-05-08] MEDS: RT-ALBUTEROL/IPRATROPIUM 3 ML (DUONEB) VIAL INH SCH ×5 (03:19→21:05)
[2018-05-08 04:00] VITALS: BP 149/68
[2018-05-08] MEDS: AMPICILLIN/SULBACTAM 1.5 GM/NS 100 ML IVPB IV SCH ×6 (05:31→21:00)
[2018-05-08 06:30] LABS: BASOPHILS % (AUTO) 1 % (0-10); EOSINOPHILS # (AUTO) 0.4 10^3/uL (0.0-0.3); EOSINOPHILS % (AUTO) 7 % (0-10); HEMATOCRIT 27 % (40-54); HEMOGLOBIN 8.8 G/DL (13.3-17.7); LYMPHOCYTES # (AUTO) 1.3 X 10^3 (1.0-4.0); LYMPHOCYTES % (AUTO) 25 % (12-44); MEAN CORPUSCULAR HEMOGLOBIN 31 PG (25-34); MEAN CORPUSCULAR HGB CONC 33 G/DL (32-36); MEAN CORPUSCULAR VOLUME 94 FL (80-99); MEAN PLATELET VOLUME 11.5 FL (7.4-10.4); MONOCYTES # (AUTO) 0.5 X 10^3 (0.0-1.0); MONOCYTES % (AUTO) 10 % (0-12); NEUTROPHILS # (AUTO) 3.1 X 10^3 (1.8-7.8); NEUTROPHILS % (AUTO) 58 % (42-75); PLATELET COUNT 288 10^3/uL (130-400); RED CELL DISTRIBUTION WIDTH 12.5 % (10.0-14.5); WHITE BLOOD COUNT 5.3 10^3/uL (4.3-11.0)
[2018-05-08 06:40] LABS: BUN/CREATININE RATIO 16; CALCIUM 9.2 MG/DL (8.5-10.1); CARBON DIOXIDE 23 MMOL/L (21-32); CHLORIDE 105 MMOL/L (98-107); CREATININE SERUM 0.83 MG/DL (0.60-1.30); GFR ESTIMATED > 60; GLUCOSE 114 MG/DL (70-105); MAGNESIUM 2.1 MG/DL (1.8-2.4); POTASSIUM 3.7 MMOL/L (3.6-5.0); SODIUM 136 MMOL/L (135-145)
--- NOTE | 2018-05-08 07:44 | Progress Note (SOAP) ---
Subjective Date Seen by a Provider: May 08, 2018 Time Seen by a Provider: 06:15 Subjective/Events-last exam Patient resting comfortably this am. No respiratory sounds such as gurgling. Objective Exam Vital Signs Date Time Temp Pulse Resp B/P (MAP) Pulse Ox O2 Delivery O2 Flow Rate FiO2 05/08/18 04:00 99.0 79 18 149/68 (95) 95 Room Air 05/07/18 23:45 98.8 72 18 144/65 (91) 98 Room Air 05/07/18 23:30 98 Room Air 05/07/18 19:50 97 Room Air 05/07/18 16:30 98.4 75 16 157/76 (103) 97 Room Air 05/07/18 10:24 96 Room Air 05/07/18 08:15 Room Air 05/07/18 08:00 97.8 91 24 162/73 (102) 95 Room Air I & O 05/08/18 07:00 Intake Total 1090 ml Output Total 2150 ml Balance -1060 ml Capillary Refill : Less Than 3 Seconds General Appearance: No Apparent Distress Respiratory: Lungs Clear (overall without rales) Cardiovascular: Regular Rate, Rhythm Gastrointestinal: soft Results Lab Laboratory Tests 05/08/18 05:47: White Blood Count 5.3, Red Blood Count 2.84L, Hemoglobin 8.8L, Hematocrit 27L, Mean Corpuscular Volume 94, Mean Corpuscular Hemoglobin 31, Mean Corpuscular Hemoglobin Concent 33, Red Cell Distribution Width 12.5, Platelet Count 288, Mean Platelet Volume 11.5H, Neutrophils (%) (Auto) 58, Lymphocytes (%) (Auto) 25 , Monocytes (%) (Auto) 10, Eosinophils (%) (Auto) 7, Basophils (%) (Auto) 1, Neutrophils # (Auto) 3.1, Lymphocytes # (Auto) 1.3, Monocytes # (Auto) 0.5, Eosinophils # (Auto) 0.4H, Basophils # (Auto) 0.0, Sodium Level 136, Potassium Level 3.7, Chloride Level 105, Carbon Dioxide Level 23, Anion Gap 8, Blood Urea Nitrogen 13, Creatinine 0.83, Estimat Glomerular Filtration Rate > 60, BUN/ Creatinine Ratio 16, Glucose Level 114H, Calcium Level 9.2, Phosphorus Level 3.0 , Magnesium Level 2.1 Microbiology 05/04/18 Blood Culture - Preliminary, Resulted No growth 05/04/18 MRSA Screen - Final, Complete MRSA not isolated 05/04/18 Urine Culture - Final, Complete Enterococcus faecalis Yeast species Assessment/Plan Assessment/Plan Assess & Plan/Chief Complaint 1. Acute on chronic respiratory failure with hypoxia-likely aspiration -bipap on admission and now off - currently on RA 3 stable breathing 2. UTI with sepsis - enterococcus facaelis -ceftriaxone day 4 05/08 -patient switched to unasyn yesterday. Today is Day #2 unasyn 3. Metabolic lactic acidosis secondary to sepsis -corrected 4. Hyponatremia -monitoring and improved now 5. Anemia-of chronic disease and fluid dilution 6. Aphasia -Speech therapy continues O/P at OR 7. PEG tube due to dysphagia 8. Severe debility requiring NH -05/08 I spoke with Hoang (patient's son) yesterday and will get hospice involved once he is at [facility]. 9. Agitation and aggression with delirium -Haldol prn Clinical Quality Measures DVT/VTE Risk/Contraindication: Risk Factor Score Per Nursin RFS Level Per Nursing on Admit: 4+=Very High ISI SENA MD May 08, 2018 07:44
--- NOTE | 2018-05-08 07:45 | Pulmonary Progress Note ---
Subjective Time Seen by a Provider: 07:45 Subjective/Events-last exam No complications noted. Sepsis Event Evaluation Height, Weight, BMI Height: 5'11.00" Weight: 162lbs. 9.0oz. 73.540614dt; 25.1 BMI Method:Estimated Exam Exam Vital Signs Date Time Temp Pulse Resp B/P (MAP) Pulse Ox O2 Delivery O2 Flow Rate FiO2 05/08/18 04:00 99.0 79 18 149/68 (95) 95 Room Air 05/07/18 23:45 98.8 72 18 144/65 (91) 98 Room Air 05/07/18 23:30 98 Room Air 05/07/18 19:50 97 Room Air 05/07/18 16:30 98.4 75 16 157/76 (103) 97 Room Air 05/07/18 10:24 96 Room Air 05/07/18 08:15 Room Air 05/07/18 08:00 97.8 91 24 162/73 (102) 95 Room Air I & O 05/08/18 07:00 Intake Total 1090 ml Output Total 2150 ml Balance -1060 ml Height & Weight Height: 5'11.00" Weight: 162lbs. 9.0oz. 73.229267lp; 25.1 BMI Method:Estimated General Appearance: No Apparent Distress HEENT: PERRL/EOMI Neck: Supple Respiratory: Lungs Clear (overall) Cardiovascular: Regular Rate, Rhythm Capillary Refill: Less Than 3 Seconds Gastrointestinal: soft Extremity: No Calf Tenderness, No Pedal Edema Neurologic/Psychiatric: Alert, Disoriented Skin: Warm/Dry Lymphatic: No Adenopathy Results Lab Laboratory Tests 05/07/18 04:20 05/08/18 05:47 Assessment/Plan Assessment/Plan Pneumonia - CXR shows parahilar infiltrates - PNA - resolving -- 96%on RA currently -Hep lock IVF -Influenza is negative -Zosyn -MRSA not isolated - leukocytosis - resolved UTI with sepsis -Zosyn -IVF -Lynn culture Pt is doing better from pulmonary standpoint. I am going to sign off. Please call with any questions. FARIDA DRAPER DO May 08, 2018 07:45
[2018-05-08] MEDS: ASPIRIN 81 MG CHEW (CHILDREN'S ASA) PO SCH (07:56)
[2018-05-08] MEDS: meTOprolol TARTRATE 25 MG (LOPRESSOR) TABLET PO SCH (07:56)
[2018-05-08 08:00] VITALS: BP 161/74
--- NOTE | 2018-05-08 08:27 | Physician Query Clarification ---
PQ-Further Specificity Admission/Discharge Admission Date: May 04, 2018 at 12:57 Discharge Date: The medical record reflects the following clinical scenario: History/Risk Factors: Sepsis/UTI Clinical Findings:Respiration 24, Blood gases-pH 7.45 pO2 71, HCO3 28, Base excess 3.8 ,WBC 17.9 Band Neutrophils 10, lactic acid 2.11, Treatment: BIPAP on arrival,Nasal Cannula 10.00L/min (0-50), Albuterol treatments. Question: Can you further specify Acute on chronic respiratory failure per the clinical indicators above? Please document below. 1. Acute on chronic respiratory failure due to sepsis. 2. Acute on chronic respiratory failure not due to sepsis. 3. Other, with explanation of the clinical findings. 4. Clinically undetermined, no explanation for the clinical findings. PHYSICIAN RESPONSE Can you specify per above: 2 In responding to this query, please exercise your independent professional judgment. The purpose of this communication is to more accurately reflect the complexity of your patients condition. The fact that a question is asked does not imply that any particular answer is desired or expected. Thank you for your timely response to this clarification. Requestors name: Alva Suárez [facility] Phone # ext [phone] or [phone] THIS PHYSICIAN QUERY FORM IS A PERMANENT PART OF THE MEDICAL RECORD ALVA SUÁREZ May 08, 2018 08:27 JANET GARCIA DO May 08, 2018 14:03
--- NOTE | 2018-05-08 08:36 | Physician Query Clarification ---
PQ-Link Infection to Dev/Proc Admission/Discharge Admission Date: May 04, 2018 at 12:57 Discharge Date: The medical record reflects the following clinical scenario: History/Risk Factors: Suprapubic catheter Sepsis/UTI Clinical Findings:Urine Specific [place] 1.015, 2+protein, 3+ Leukocyte Esterase , 2+ RBC(auto) 2-5 Urine RBC, 50-100 Urine WBC. Urine culture-70,000 cfy/ml Susceptibility reported 3-4-19-VRE , 10,000 cfu/ml Yeast. Treatment:IV Ceftriaxone Sodium, IV Ampicillin Sodium/Sulbactam Sodium 1.5gm/ Sodium Chloride. Question: Can you specify if the Sepsis with UTI is due to/associated with Suprapubic Catheter? Please document a response below. PHYSICIAN RESPONSE Specify if infection: Yes,due to/associated with device In responding to this query, please exercise your independent professional judgment. The purpose of this communication is to more accurately reflect the complexity of your patients condition. The fact that a question is asked does not imply that any particular answer is desired or expected. Thank you for your timely response to this clarification. Requestors name: Alva Suárez [facility] Phone # ext [phone] or [phone] THIS PHYSICIAN QUERY FORM IS A PERMANENT PART OF THE MEDICAL RECORD ALVA SUÁREZ May 08, 2018 08:36 JANET GARCIA DO May 08, 2018 14:03
--- NOTE | 2018-05-08 11:07 | Progress Note-Cardiology ---
Cardiology SOAP Progress Note Subjective: More alert today. Denies any c/o CP, dyspnea or palpitations. Objective: I&O/Vital Signs 05/08/18 05/08/18 05/08/18 05/08/18 07:38 08:00 08:00 10:58 Temp 98.0 Pulse 86 Resp 21 B/P (MAP) 161/74 (103) Pulse Ox 95 96 97 94 O2 Delivery Room Air Room Air Room Air Room Air 05/08/18 15:51 Temp 98.6 Pulse 80 Resp 21 B/P (MAP) 159/78 (105) Pulse Ox 96 O2 Delivery Room Air 05/08/18 00:00 Intake Total 720 ml Output Total 1500 ml Balance -780 ml Weight (Pounds): 162 Weight (Ounces): 9.0 Weight (Calculated Kilograms): 73.346868 Constitutional: other (Seems more alert today and appropriately conversive, oriented to self) Respiratory: No accessory muscle use; other (fair air entry, diminished at the bases, scattered rhonchi and wheezes) Cardiovascular: regular rate-rhythm, S1 and S2, systolic murmur (soft CUCA at card base) Gastrointestional: No tender; soft; No guarding, No rebound; audible bowel sounds Extremities: No clubbing, No cyanosis, No significant edema Neurologic/Psychiatric: other (pt is not able to cooperate with a neuro exam; daughter states pt has paraparesis) Skin: warm/dry; No cyanosis, No cool, No rash on exposed areas Results/Procedures: Labs Laboratory Tests 05/08/18 05:47: White Blood Count 5.3, Red Blood Count 2.84L, Hemoglobin 8.8L, Hematocrit 27L, Mean Corpuscular Volume 94, Mean Corpuscular Hemoglobin 31, Mean Corpuscular Hemoglobin Concent 33, Red Cell Distribution Width 12.5, Platelet Count 288, Mean Platelet Volume 11.5H, Neutrophils (%) (Auto) 58, Lymphocytes (%) (Auto) 25 , Monocytes (%) (Auto) 10, Eosinophils (%) (Auto) 7, Basophils (%) (Auto) 1, Neutrophils # (Auto) 3.1, Lymphocytes # (Auto) 1.3, Monocytes # (Auto) 0.5, Eosinophils # (Auto) 0.4H, Basophils # (Auto) 0.0, Sodium Level 136, Potassium Level 3.7, Chloride Level 105, Carbon Dioxide Level 23, Anion Gap 8, Blood Urea Nitrogen 13, Creatinine 0.83, Estimat Glomerular Filtration Rate > 60, BUN/ Creatinine Ratio 16, Glucose Level 114H, Calcium Level 9.2, Phosphorus Level 3.0 , Magnesium Level 2.1 Microbiology 05/04/18 Blood Culture - Preliminary, Resulted No growth 05/04/18 MRSA Screen - Final, Complete MRSA not isolated 05/04/18 Urine Culture - Final, Complete Enterococcus faecalis Yeast species A/P: Assessment: UTI with sepsis H/o cervical spinal stenosis and myelopathy treated with cervical spinal surgery in July 2017 with subsequent dysphagia leading to PEG tube placement H/o paraparesis, apparently due to cervical spinal myelopathy Neurogenic bladder H/o CAD with LAD stenting in Apr 2013 that was patent on subsequent card cath of June 2013 (diffuse mod CAD) Hypertension Electrolyte abnormalities - resolved Plan: * Continue current card regimen * BP not well controlled * Increase BB dose (previously taking 50 mg BID) * Monitor lab Physician Assessment Physician Assessment Verbally nonresponsive at time of my exam Lungs: fair to good bilat air entry Ext: no c/c/e A&R * As documented in our note above that I updated (italics) and as noted below * Monitor labs CHANCE CARRENO May 08, 2018 11:07 KEZIA MORALES MD [facility] May 08, 2018 16:57
[2018-05-08] MEDS ORDERED: meTOprolol TARTRATE 25 MG (LOPRESSOR) TABLET PO NR (11:15)
[2018-05-08] MEDS: LORazepam INJ 2 MG/ML (ATIVAN) VIAL IVP PRN (12:10)
[2018-05-08 15:51] VITALS: BP 159/78
--- NOTE | 2018-05-08 15:55 | NUR ---
CM/SS. Patient has established placement with [facility] and will return there when able. He was under skilled status and does have days remaining for coverage. He should be returned Medicare skilled status unless condition warrants alternate level of care like hospice. Anticipate discharge tomorrow, updated [facility]/Tamara.
[2018-05-08] MEDS: ACETAMINOPHEN 500 MG TAB (TYLENOL) PO PRN (16:12)
[2018-05-08] MEDS: meTOprolol TARTRATE 50 MG (LOPRESSOR) TAB PO SCH (21:00)
[2018-05-09] VITALS: BP 143/81
[2018-05-09] MEDS: RT-ALBUTEROL/IPRATROPIUM 3 ML (DUONEB) VIAL INH SCH ×3 (01:13→10:14)
[2018-05-09 04:42] LABS: BASOPHILS # (AUTO) 0.1 10^3/uL (0.0-0.1); BASOPHILS % (AUTO) 1 % (0-10); EOSINOPHILS # (AUTO) 0.4 10^3/uL (0.0-0.3); EOSINOPHILS % (AUTO) 5 % (0-10); HEMATOCRIT 28 % (40-54); HEMOGLOBIN 9.3 G/DL (13.3-17.7); LYMPHOCYTES # (AUTO) 1.4 X 10^3 (1.0-4.0); LYMPHOCYTES % (AUTO) 19 % (12-44); MEAN CORPUSCULAR HEMOGLOBIN 31 PG (25-34); MEAN CORPUSCULAR HGB CONC 33 G/DL (32-36); MEAN CORPUSCULAR VOLUME 93 FL (80-99); MEAN PLATELET VOLUME 11.4 FL (7.4-10.4); MONOCYTES # (AUTO) 0.7 X 10^3 (0.0-1.0); MONOCYTES % (AUTO) 9 % (0-12); NEUTROPHILS # (AUTO) 4.7 X 10^3 (1.8-7.8); NEUTROPHILS % (AUTO) 65 % (42-75); PLATELET COUNT 287 10^3/uL (130-400); RED CELL DISTRIBUTION WIDTH 12.3 % (10.0-14.5); WHITE BLOOD COUNT 7.2 10^3/uL (4.3-11.0)
[2018-05-09 05:15] LABS: BUN/CREATININE RATIO 14; CALCIUM 9.5 MG/DL (8.5-10.1); CARBON DIOXIDE 23 MMOL/L (21-32); CHLORIDE 103 MMOL/L (98-107); GFR ESTIMATED > 60; GLUCOSE 97 MG/DL (70-105); MAGNESIUM 1.7 MG/DL (1.8-2.4); PHOSPHORUS 3.2 MG/DL (2.3-4.7); SODIUM 135 MMOL/L (135-145)
[2018-05-09] MEDS: AMPICILLIN/SULBACTAM 1.5 GM/NS 100 ML IVPB IV SCH ×2 (05:26)
--- NOTE | 2018-05-09 07:11 | Discharge Summary ---
Diagnosis/Chief Complaint Date of Admission May 04, 2018 at 12:57 Date of Discharge Discharge Date: May 09, 2018 Discharge Time: 10:00 Admission Diagnosis Admission Diagnosis 1. Acute on chronic respiratory failure with hypoxia-likely aspiration 2. UTI with sepsis 3. Metabolic lactic acidosis secondary to sepsis 4. Hyponatremia 5. Aphasia 6. PEG tube due to dysphagia 7. Severe debility requiring NH 8. Agitation and aggression with delirium Discharge Diagnosis 1. Acute on chronic respiratory failure with hypoxia-likely aspiration 2. UTI with sepsis - enterococcus facaelis 3. Metabolic lactic acidosis secondary to sepsis 4. Hyponatremia 5. Anemia-of chronic disease and fluid dilution 6. Aphasia 7. PEG tube due to dysphagia 8. Severe debility requiring NH 9. Agitation and aggression with delirium Reason Hospital Visit 82-year-old male admitted through the emergency department during the afternoon of July 04, 2018 after having respiratory difficulty and requiring BiPAP in the emergency department. Patient was found to have difficulty breathing at [facility] ultimately being sent to the emergency department for evaluation. Patient has dysphagia secondary to non-return of swallow reflex after having cervical neck surgery in July 2017. Patient was noted to have saturations in the 80 percentile in the emergency department requiring BiPAP. He apparently had a fever of 102 the evening prior to emergency room visit. He has been treated for urinary tract infections at the intermediate in the last few weeks with Rocephin. He does have suprapubic catheter and recently had seen urology. Discharge Summary Hospital Course Was the Problem List Reviewed?: Yes Hospital Course Patient was admitted during the afternoon of July 04, 2018 and was initially placed on IV ceftriaxone 1 g every 24 hours. Ceftriaxone was initiated due to his respiratory illness as well as due to his history of urinary tract infections that were susceptible to treatment with IV ceftriaxone. He was maintained on BiPAP initially placed in the intensive care unit. He ultimately improved and was moved to [facility] on May 06, 2018. Consultation with cardiology as well as pulmonology was obtained when he was in the ICU. When moved to [facility] he was noted not to have BiPAP and was maintained with saturations in the mid 90 percentile on nasal cannula oxygen. The urine sensitivity came back enterococcus on May 07, 2018 and he was switched to Unasyn. Unasyn was chosen due to the coverage for urinary tract infection as well as pulmonary. His CBCs were monitored during the course of his stay and he does have anemia of chronic illness as well. I spoke with his son on Monday for regarding his father's wishes regarding CODE STATUS as well as hospice. At this time his son would like to have respiratory support but no chest compressions. He will also be with consultation regarding hospice upon discharge. Labs Laboratory Tests 05/07/18 04:20: Red Blood Count 2.87L, Hemoglobin 8.8L, Hematocrit 27L, Mean Platelet Volume 11.5H, Potassium Level 3.4L, Magnesium Level 1.7L 05/08/18 05:47: Red Blood Count 2.84L, Hemoglobin 8.8L, Hematocrit 27L, Mean Platelet Volume 11.5H, Eosinophils # (Auto) 0.4H, Glucose Level 114H 05/09/18 04:10: Red Blood Count 3.04L, Hemoglobin 9.3L, Hematocrit 28L, Mean Platelet Volume 11.4H, Magnesium Level 1.7L, Eosinophils # (Auto) 0.4H Procedures None. Discharge Physical Examination Allergies: Coded Allergies: No Known Drug Allergies (Unverified , 10/25/12) Vitals & I&Os Vital Signs Date Time Temp Pulse Resp B/P (MAP) Pulse Ox O2 Delivery O2 Flow Rate FiO2 05/09/18 06:45 92 Room Air 05/09/18 00:00 99.4 73 18 143/81 (101) 05/06/18 06:49 0.50 05/04/18 10:06 50 General Appearance: No Acute Distress Respiratory: Clear to Auscultation Cardiovascular: Regular Rate Abdominal: Soft Discharge Home Medications Reviewed and agree with Discharge Medication list on patient's Discharge Instruction sheet Instructions to Patient/Family Please see electronic discharge instructions given to patient. Clinical Quality Measures DVT/VTE Risk/Contraindication: Risk Factor Score Per Nursin RFS Level Per Nursing on Admit: 4+=Very High ISI SENA MD May 09, 2018 07:10
[2018-05-09] MEDS ORDERED: AMOX1TAB12 PO (07:15)
--- NOTE | 2018-05-09 07:17 | Discharge Inst-Skilled Nursing ---
Discharge Inst-Skilled NF Chief Complaint CC: Respiratory insufficiency HPI: This is an 82yoWM NHP of Dr Sena known to me from recent hospital stay who had AMS and hypoxia at [place] and presented to the ER with respiratory insufficiency requiring biPAP and dx with UTI recurrent in nature. Pt is partially aphasic and cannot provide any details. Patient was monitored in the ICU overnight. Full dose status has been changed after speaking to family member by ICU nurse and he is now no compressions but short term ventilation is still approved. Currently patient has stable and appears to be in no distress. He appears to be a hospice candidate and it is recommended to speak to PCP about this when he returns on Monday. Patient Instructions Patient Problems: Enterococcus urinary tract infection to be treated with Augmentin 875 mg twice daily for 7 additional days Consult/Follow Up/Orders Follow Up Appt.: Dr. Sena as needed Skilled NF Admit to: [facility] Certification ([facility]) I certify that SNF services are required to be given on an inpatient basis because of the above named patient's need for halfway care on a continuing basis for the conditions(s) for which he/she was receiving inpatient hospital services prior to his/her transfer to the SNF. [facility] Facility Order: Nursing Services, Chief Engineer Production-Evaluate & Treat, Physical Therapy-Evaluate & Treat, Speech Language-Evaluate & Treat, Other (hospice evaluation) Oxygen Delivery Method: Room Air Daily Activity as Tolerated: No (Jevity ) New & Resume Previous Orders Isi Sena May 09, 2018 07:15 ISI SENA MD May 09, 2018 07:17
[2018-05-09 08:02] VITALS: BP 143/66
[2018-05-09] MEDS: ASPIRIN 81 MG CHEW (CHILDREN'S ASA) PO SCH (08:18)
[2018-05-09] MEDS: meTOprolol TARTRATE 50 MG (LOPRESSOR) TAB PO SCH (08:18)
--- NOTE | 2018-05-09 09:57 | NUR ---
CM/SS. Patient discharged as planned, returning to established placement with [facility] via their transport scheduled for 1030. Physician has ordered Medicare skilled services for now, he also documented a suggestion for hospice consideration. Facility understands to bring wheelchair and warm clothing/blankets. Left voice mail for son/POEdis Manjarrez. Faxed orders to SNF, packet prepared to accompany patient. Unit RN updated.
[2018-05-09] MEDS ORDERED: FLU QUADRIvalent (5+ YOA) 2018-2019 (AFLURIA) 0.5 ML IM ONE (10:47)
[2018-05-09 12:00] VITALS: BP 143/66
--- NOTE | 2018-05-09 12:00 | NUR ---
[facility] STAFF HERE TO SPRAY DYER PATIENT. PATIENT LEFT VIA WHEELCHAIR ACCOMPANIED BY STAFF. NO COMPLAINTS OF PAIN AND VITAL SIGNS STABLE ON ROOM AIR. DISCHARGE PAPERWORK SENT WITH PATIENT.
--- NOTE | 2018-05-09 12:43 | NUR ---
REPORT CALLED TO [facility] RN.
--- NOTE | 2018-05-11 13:02 | Physician Query Clarification ---
PQ-Further Specificity Admission/Discharge Admission Date: May 04, 2018 at 12:57 Discharge Date: May 09, 2018 at 12:00 The medical record reflects the following clinical scenario: History/Risk Factors: Snf patient, PEG for dysphagia, Acute on Chronic Respiratory Failure Clinical Findings: CXR shows parahilar infiltrates Treatment: IV Zosyn Question: Can you further specify Pneumonia given by Dr. Tripp per the clinical indicators above? Your 3/4 PN states acute on chronic respiratory failure with hypoxia - likely aspiration. Please document below. 1. Aspiration Pneumonia 2. Pneumonia type/organism unknown 3. No pneumonia, ruled out 4. Other, with explanation of the clinical findings. 5. Clinically undetermined, no explanation for the clinical findings. PHYSICIAN RESPONSE Can you specify per above: 1 Explanation/Clinical Findings Clarification: 1. Acute on chronic respiratory failure with hypoxia-perihilar infiltrates/aspiration pneumonia In responding to this query, please exercise your independent professional judgment. The purpose of this communication is to more accurately reflect the complexity of your patients condition. The fact that a question is asked does not imply that any particular answer is desired or expected. Thank you for your timely response to this clarification. Requestors name: Deejay THIS PHYSICIAN QUERY FORM IS A PERMANENT PART OF THE MEDICAL RECORD DEEJAY ROSALES May 11, 2018 13:02 ISI SENA MD May 21, 2018 07:20
--- NOTE | 2018-05-22 08:51 | Physician Query Clarification ---
PQ-Further Specificity Admission/Discharge Admission Date: May 04, 2018 at 12:57 Discharge Date: May 09, 2018 at 12:00 The medical record reflects the following clinical scenario: History/Risk Factors: PEG d/t dysphagia, hx aspiration pneumonia, Suprapubic tube with UTI's, Alzheimer's dementia Clinical Findings: hypoxia, SOB, fever 102, CXR shows no acute process Treatment: IV Ceftriaxone, IV Unasyn Question: Can you further specify aspiration pneumonia per the clinical indicators above? Please document below. 1. aspiration pneumonia due to a noninfectious process 2. aspiration pneumonia due to an infectious process (please specify) 3. Other, with explanation of the clinical findings. 4. Clinically undetermined, no explanation for the clinical findings. PHYSICIAN RESPONSE Can you specify per above: 1 Explanation/Clinical Findings Mr Manjarrez is having aspiration frequently. We didn't grown an organism from sputum. With that said coverage for infection is done anyway due to the high propensity for pneumonia. In responding to this query, please exercise your independent professional judgment. The purpose of this communication is to more accurately reflect the complexity of your patients condition. The fact that a question is asked does not imply that any particular answer is desired or expected. Thank you for your timely response to this clarification. Requestors name: Deejay THIS PHYSICIAN QUERY FORM IS A PERMANENT PART OF THE MEDICAL RECORD DEEJAY ROSALES May 22, 2018 08:51 ISI SENA MD Jun 01, 2018 07:26
== END 2018-05-09 12:00 | DRG 177 ==
LOC: EDUNIT# 09:54 → ER 09:55 → UNDOADMIN 12:57 → ICU 12:57 → 4TH 05-05 15:34
PROVIDERS: ADMIT Internal Medicine; ATTEND Internal Medicine
DX: J69.0 Pneumonitis due to inhalation of food and vomit (principal); J96.21 Acute and chronic respiratory failure with hypoxia; T83.510A Infection and inflammatory reaction due to cystostomy catheter, initial encounter; A41.9 Sepsis, unspecified organism; N30.00 Acute cystitis without hematuria; E87.2 Acidosis; G30.9 Alzheimer's disease, unspecified; F02.81 Dementia in other diseases classified elsewhere, unspecified severity, with behavioral disturbance; F05 Delirium due to known physiological condition; T17.800A Unspecified foreign body in other parts of respiratory tract causing asphyxiation, initial encounter; R47.01 Aphasia; E87.1 Hypo-osmolality and hyponatremia; R64 Cachexia; I10 Essential (primary) hypertension; N31.9 Neuromuscular dysfunction of bladder, unspecified; R13.10 Dysphagia, unspecified; I25.10 Atherosclerotic heart disease of native coronary artery without angina pectoris; N28.9 Disorder of kidney and ureter, unspecified; H40.9 Unspecified glaucoma; D64.9 Anemia, unspecified; E78.00 Pure hypercholesterolemia, unspecified; E03.9 Hypothyroidism, unspecified; K59.09 Other constipation; M19.91 Primary osteoarthritis, unspecified site; M54.9 Dorsalgia, unspecified; Z93.50 Unspecified cystostomy status; Z93.1 Gastrostomy status; Z95.5 Presence of coronary angioplasty implant and graft; Z87.891 Personal history of nicotine dependence; B95.2 Enterococcus as the cause of diseases classified elsewhere
CPT/HCPCS: 36415; 36600; 71045; 80048; 80053; 81000; 82805; 83605; 83735; 83880; 84100; 85007; 85025; 85027; 85379; 86141; 87040; 87077; 87081; 87088; 87186; 87804; 93041; 94640; 94760; 99291

== ENCOUNTER 2018-05-10 09:56 | Emergency (ER) | payer MEDICARE, OTHER ==
[~2018-05-10] VITALS: Ht 177.8 cm; Wt 63.5 kg
[~2018-05-10 09:56] MED LIST changes: +AMOX1TAB12 PO; +LEVO112T55 PEG
[2018-05-10 10:23] LABS: BASOPHILS % (AUTO) 0 % (0-10); EOSINOPHILS # (AUTO) 0.2 10^3/uL (0.0-0.3); EOSINOPHILS % (AUTO) 2 % (0-10); HEMATOCRIT 33 % (40-54); HEMOGLOBIN 10.9 G/DL (13.3-17.7); LYMPHOCYTES # (AUTO) 0.8 X 10^3 (1.0-4.0); LYMPHOCYTES % (AUTO) 7 % (12-44); MEAN CORPUSCULAR HEMOGLOBIN 31 PG (25-34); MEAN CORPUSCULAR HGB CONC 33 G/DL (32-36); MEAN CORPUSCULAR VOLUME 94 FL (80-99); MEAN PLATELET VOLUME 11.1 FL (7.4-10.4); MONOCYTES # (AUTO) 0.4 X 10^3 (0.0-1.0); MONOCYTES % (AUTO) 4 % (0-12); NEUTROPHILS # (AUTO) 9.9 X 10^3 (1.8-7.8); NEUTROPHILS % (AUTO) 87 % (42-75); PLATELET COUNT 348 10^3/uL (130-400); RED CELL DISTRIBUTION WIDTH 12.8 % (10.0-14.5); WHITE BLOOD COUNT 11.5 10^3/uL (4.3-11.0)
[2018-05-10 10:37] LABS: ALBUMIN 3.8 GM/DL (3.2-4.5); BILIRUBIN,TOTAL 0.5 MG/DL (0.1-1.0); CALCIUM 9.6 MG/DL (8.5-10.1); CREATININE SERUM 1.17 MG/DL (0.60-1.30); POTASSIUM 4.8 MMOL/L (3.6-5.0); TOTAL PROTEIN 7.9 GM/DL (6.4-8.2)
[2018-05-10 10:46] LABS: INR 1.1 (0.8-1.4); PROTHROMBIN TIME PATIENT 13.8 SEC (12.2-14.7)
--- NOTE | 2018-05-10 11:08 | Diagnostic Imaging Report ---
INDICATION: Shortness of air and cough. TIME OF EXAM: 10:48 a.m. Correlation is made with prior study from 05/05/2018. FINDINGS: There is some patchy infiltrate in the left lung base which appears to be somewhat increased since the exam five days earlier. Subsegmental atelectasis in the right perihilar region is unchanged. There is no effusion. No pneumothorax is identified. IMPRESSION: Slight increase in left basilar infiltrate when compared with examination five days earlier. Dictated by: Dictated on workstation # [id number]
[2018-05-10 11:26] LABS: BILIRUBIN,URINE NEGATIVE (NEGATIVE); COLOR,URINE YELLOW; GLUCOSE, URINE (UA) NEGATIVE (NEGATIVE); KETONES,URINE NEGATIVE (NEGATIVE); LEUKOCYTE ESTERASE ,URINE 3+ (NEGATIVE); NITRITE,URINE NEGATIVE (NEGATIVE); PH,URINE 7 (5-9); PROTEIN,URINE 3+ (NEGATIVE); UROBILINOGEN,URINE NORMAL (NORMAL)
[2018-05-10 11:42] LABS: CLARITY,URINE CLOUDY
[2018-05-10 11:43] LABS: BACTERIA,URINE TRACE /HPF; WBC,URINE 25-50 /HPF
[2018-05-10 11:44] LABS: YEAST,URINE FEW /HPF
[2018-05-10] MEDS ORDERED: PIPERACILLIN/TAZOBACTAM (BULK) 4.5 GM in NS (IVPB) 100 ML IV ONE (12:30)
--- NOTE | 2018-05-10 12:54 | Diagnostic Imaging Report ---
INDICATION: Shortness of air. Altered mental status. TECHNIQUE: Routine non contrast-enhanced axial images were obtained from the skull base to the vertex. COMPARISON: 03/11/2018. FINDINGS: The ventricles and cortical sulci are diffusely prominent, compatible with age-related volume loss. There are confluent areas of abnormal, low attenuation in the periventricular white matter. This is consistent with chronic small vessel ischemic changes. There is no midline shift or mass-effect. No acute intra-axial hemorrhage is seen. There are no abnormal areas of increased or decreased density to suggest acute hemorrhage or edema. No extra-axial masses or collections are present. The bony calvarium is intact. The visualized paranasal sinuses are partially opacified. The mastoid air cells are clear. IMPRESSION: 1. No acute intracranial abnormality. No CT evidence of mass, acute infarct or intracranial hemorrhage. 2. Chronic small vessel ischemic changes in the deep white matter. Dictated by: Dictated on workstation # [id number]
--- NOTE | 2018-05-10 15:19 | ED General ---
General Chief Complaint: Respiratory Problems Stated Complaint: RESP DISTRESS Nursing Triage Note: pt presents to ed with complaints of soa and wet cough and altered mental status starting at 0300 this am. pt got progressively worse throughout the morning. Nursing Sepsis Screen: No Definite Risk Source of Information: EMS, Family, Residential Records, Old Records Exam Limitations: No Limitations History of Present Illness Date Seen by Provider: May 10, 2018 Time Seen by Provider: 10:00 Initial Comments This 82-year-old gentleman presents to the emergency room via EMS after becoming unresponsive and hypoxic at the retirement. He was noted to have an oxygen saturation of 80 percent on room air. EMS notes he has rhonchi and wheezing. They tried to suction him at [facility] without improvement. EMS administered a DuoNeb treatment and high flow oxygen which improved his status. He is still minimally responsive. Patient does not usually require supplemental oxygen but is on a high flow mask now to maintain his saturations. He was admitted a week ago for respiratory distress and urinary tract infection. It was noted by retirement staff that his tube feeds were recently increased from 30 ML per hour to 50 mL per hour. Patient has significant dementia. He is sometimes a verbal communicates but at other times has episodes of decreased responsiveness similar to his episode today. Allergies and Home Medications Allergies Coded Allergies: No Known Drug Allergies (Unverified , 10/25/12) Home Medications Acetaminophen 500 Mg Tablet, 1,000 MG PEG Q8H PRN for PAIN-MILD, (Reported) Amoxicillin/Potassium Clav 1 Each Tablet, 1 EACH PO BID Prescribed by: ISI SENA on 05/09/18 0715 Aspirin 81 Mg Tab.chew, 81 MG PEG DAILY, (Reported) Dorzolamide HCl/Timolol Maleat 10 Ml Drops, 1 DROP OU BID, (Reported) Famotidine 20 Mg Tablet, 20 MG PEG BID, (Reported) Hydrocodone/Acetaminophen 1 Each Tablet, 1 TAB PEG Q6H PRN for BREAKTHROUGH PAIN , (Reported) Hydrocodone/Acetaminophen 473 Ml Solution, 7.5 ML PEG BID, (Reported) Ibuprofen 800 Mg Tablet, 800 MG PEG Q8H PRN for PAIN-MILD, (Reported) Lactose-Reduced Food/Fiber 237 Ml Liquid, 237 ML PEG 5XD, (Reported) Levothyroxine Sodium 112 Mcg Tablet, 112 MCG PEG 0600, (Reported) Loperamide HCl 2 Mg Tablet, 2-4 MG PEG Q8H PRN for LOOSE STOOLS, (Reported) Lorazepam 1 Mg Tablet, 1 MG PEG Q4H PRN for AGITATION, (Reported) Loteprednol Etabonate 5 Gm Drops.gel, 1 DROP OD 1800, (Reported) Magnesium Hydroxide 400 Mg/5 Ml Oral.susp, 30 ML PEG DAILY PRN for IF NO BM IN 3 DAYS, (Reported) Melatonin 3 Mg Tab.rapdis, 3 MG PEG HS, (Reported) Metoprolol Tartrate 50 Mg Tablet, 50 MG PEG BID, (Reported) HOLD AND NOTIFY PCP IF SBP <100 AND/OR DBP <60 AND/OR PULSE <60 Polyvinyl Alcohol/Povidone 15 Ml Drops, 1 DROP OU QID PRN for DRY EYES, ( Reported) Sennosides 8.6 Mg Tablet, 2 TAB PEG DAILY, (Reported) Tramadol HCl 50 Mg Tablet, 50 MG PEG Q6H PRN for PAIN-MODERATE, (Reported) Ziprasidone 40 Mg Cap, 40 MG PEG Q12H, (Reported) Patient Home Medication List Home Medication List Reviewed: Yes Review of Systems Review of Systems Constitutional: see HPI, weakness EENTM: no symptoms reported Respiratory: see HPI Cardiovascular: no symptoms reported Gastrointestinal: no symptoms reported Genitourinary: see HPI Musculoskeletal: no symptoms reported Skin: no symptoms reported Psychiatric/Neurological: See HPI Hematologic/Lymphatic: No Symptoms Reported Immunological/Allergic: no symptoms reported Past Qoujkfr-Veoqwq-Dpfpzt Hx Patient Social History Alcohol Use: Denies Use Recreational Drug Use: No Type Used: Cigarettes Former Smoker, Quit: Mar 11, 1989 2nd Hand Smoke Exposure: No Recent Foreign Travel: No Contact w/Someone Who Travel: No Recent Infectious Disease Expo: No Recent Hopitalizations: Yes Physical Abuse: No Sexual Abuse: No Mistreated: No Fear: No Immunizations Up To Date Date of Pneumonia Vaccine: Nov 12, 2015 Date of Influenza Vaccine: Dec 06, 2015 Seasonal Allergies Seasonal Allergies: No Past Medical History Surgeries: Yes (CORNEA TRANSPLANT, MASTOIDECTOMY, suprabubic cath, L TKR, neck , PEG tube) Gallbladder, Joint Replacement, Orthopedic Respiratory: Yes (hx of aspiration pneumonia) Currently Using CPAP: No Currently Using BIPAP: No Cardiac: Yes (STENTS X2-LAST ONE COUPLE YEARS AGO) Coronary Artery Disease, High Cholesterol, Hypertension Neurological: Yes (dysphagia) Dementia Reproductive Disorders: No Sexually Transmitted Disease: No HIV/AIDS: No Genitourinary: Yes (joe cath since having sx on cervical spin for stenosis, kidney failure) UTI-Chronic Gastrointestinal: Yes (peg tube placement since having sx on cervical spine for stenosis, dysarthr) Chronic Constipation Musculoskeletal: Yes (spinal stenosis, oteoarthritis, r/l knee contracture) Arthritis, Chronic Back Pain, Fractures Endocrine: No Hypothyroidsim HEENT: Yes Glaucoma Loss of Vision: Bilateral Hearing Impairment: Denies Cancer: No Psychosocial: No Integumentary: No Blood Disorders: No Adverse Reaction/Blood Tranf: No Family Medical History LUNG CANCER G8 BROTHER Myocardial infarction 19 MOTHER Physical Exam Vital Signs Vital Signs - First Documented 05/10/18 10:06 Temp 97.7 Pulse 86 Resp 20 B/P (MAP) 140/73 (95) Pulse Ox 95 O2 Delivery OxyMask O2 Flow Rate 10.00 Capillary Refill : Less Than 3 Seconds Height, Weight, BMI Height: 5'10.00" Weight: 140lbs. 3.0oz. 63.592822lq; 25.1 BMI Method:Estimated General Appearance: WD/WN, Mild Distress (Respiratory) HEENT: PERRL/EOMI, Normal ENT Inspection Neck: Normal Inspection Respiratory: No Accessory Muscle Use, No Respiratory Distress, Rhonci, Wheezing Cardiovascular: Regular Rate, Rhythm, No Edema, No Murmur Gastrointestinal: Non Tender, Soft, Other (PEG tube intact with no evidence of leakage or inflammation) Extremity: Normal Inspection, No Pedal Edema Neurologic/Psychiatric: Other (Significantly decreased level of alertness. Patient will track with eyes but will not respond verbally. Contractures of the right hand. Will follow commands with gripping the left hand.) Skin: Normal Color, Warm/Dry Focused Exam Lactate Level 05/10/18 10:10: Lactic Acid Level 1.01 Progress/Results/Core Measures Suspected Sepsis Recent Fever Within 48 Hours: No Infection Criteria Present: Suspected New Infection New/Unexplained Altered Menta: Yes Sepsis Screen: No Definite Risk SIRS Temperature:97.7 Pulse: 86 Respiratory Rate: 20 Laboratory Tests 05/10/18 10:06: White Blood Count 11.5H Blood Pressure 140 /73 Mean: 95 05/10/18 10:10: Lactic Acid Level 1.01 Laboratory Tests 05/10/18 10:06: Creatinine 1.17, Platelet Count 348, Total Bilirubin 0.5 05/10/18 10:10: INR Comment 1.1 Results/Orders Lab Results Laboratory Tests Test 05/10/18 10:06 05/10/18 10:10 05/10/18 11:20 Range/Units White Blood Count 11.5 H 4.3-11.0 10^3/uL Red Blood Count 3.52 L 4.35-5.85 10^6/uL Hemoglobin 10.9 L 13.3-17.7 G/DL Hematocrit 33 L 40-54 % Mean Corpuscular Volume 94 80-99 FL Mean Corpuscular Hemoglobin 31 25-34 PG Mean Corpuscular Hemoglobin Concent 33 32-36 G/DL Red Cell Distribution Width 12.8 10.0-14.5 % Platelet Count 348 130-400 10^3/uL Mean Platelet Volume 11.1 H 7.4-10.4 FL Neutrophils (%) (Auto) 87 H 42-75 % Lymphocytes (%) (Auto) 7 L 12-44 % Monocytes (%) (Auto) 4 0-12 % Eosinophils (%) (Auto) 2 0-10 % Basophils (%) (Auto) 0 0-10 % Neutrophils # (Auto) 9.9 H 1.8-7.8 X 10^3 Lymphocytes # (Auto) 0.8 L 1.0-4.0 X 10^3 Monocytes # (Auto) 0.4 0.0-1.0 X 10^3 Eosinophils # (Auto) 0.2 0.0-0.3 10^3/uL Basophils # (Auto) 0.0 0.0-0.1 10^3/uL Sodium Level 135 135-145 MMOL/L Potassium Level 4.8 3.6-5.0 MMOL/L Chloride Level 100 98-107 MMOL/L Carbon Dioxide Level 25 21-32 MMOL/L Anion Gap 10 5-14 MMOL/L Blood Urea Nitrogen 18 7-18 MG/DL Creatinine 1.17 0.60-1.30 MG/DL Estimat Glomerular Filtration Rate 60 BUN/Creatinine Ratio 15 Glucose Level 161 H 70-105 MG/DL Calcium Level 9.6 8.5-10.1 MG/DL Corrected Calcium 9.8 8.5-10.1 MG/DL Total Bilirubin 0.5 0.1-1.0 MG/DL Aspartate Amino Transf (AST/SGOT) 30 5-34 U/L Alanine Aminotransferase (ALT/SGPT) 15 0-55 U/L Alkaline Phosphatase 63 40-136 U/L C-Reactive Protein High Sensitivity 2.64 H 0.00-0.50 MG/DL Total Protein 7.9 6.4-8.2 GM/DL Albumin 3.8 3.2-4.5 GM/DL Prothrombin Time 13.8 12.2-14.7 SEC INR Comment 1.1 0.8-1.4 Activated Partial Thromboplast Time 33 24-35 SEC Lactic Acid Level 1.01 0.50-2.00 MMOL/L Urine Color YELLOW Urine Clarity CLOUDY H Urine pH 7 5-9 Urine Specific [place] 1.010 L 1.016-1.022 Urine Protein 3+ H NEGATIVE Urine Glucose (UA) NEGATIVE NEGATIVE Urine Ketones NEGATIVE NEGATIVE Urine Nitrite NEGATIVE NEGATIVE Urine Bilirubin NEGATIVE NEGATIVE Urine Urobilinogen NORMAL NORMAL MG/DL Urine Leukocyte Esterase 3+ H NEGATIVE Urine RBC (Auto) 4+ H NEGATIVE Urine RBC 10-25 H /HPF Urine WBC 25-50 H /HPF Urine Squamous Epithelial Cells NONE /HPF Urine Crystals NONE /LPF Urine Bacteria TRACE /HPF Urine Casts NONE /LPF Urine Mucus NEGATIVE /LPF Urine Yeast FEW H /HPF Urine Culture Indicated CULTURE PENDING Micro Results Microbiology 05/10/18 Influenza Types A,B Antigen (DEV) - Final, Complete My Orders Orders - MARISOL ROSE MD Cbc With Automated Diff (05/10/18 10:15) Comprehensive Metabolic Panel (05/10/18 10:15) Hs C Reactive Protein (05/10/18 10:15) Chest 1 View, Ap/Pa Only (05/10/18 10:15) Influenza A And B Antigens (05/10/18 10:15) Saline Lock/Iv-Start (05/10/18 10:15) O2 (05/10/18 10:15) Monitor-Rhythm Ecg Trace Only (05/10/18 10:15) Blood Culture (05/10/18 10:35) Sputum Culture (05/10/18 10:35) Urinalysis (05/10/18 10:35) Urine Culture (05/10/18 10:35) Protime With Inr (05/10/18 10:35) Partial Thromboplastin Time (05/10/18 10:35) Vital Signs Adult Sepsis Patie Q15M (05/10/18 10:35) Remove Rings In Anticipation O (05/10/18 10:35) Lactic Acid Analyzer (05/10/18 10:35) Ct Head Wo (05/10/18 11:36) Piperacillin/Tazobactam (Bulk) (Zosyn In (05/10/18 12:30) Medications Given in ED Current Medications Medications Dose Ordered Sig/Moshe Route Start Time Stop Time Status Last Admin Dose Admin Piperacillin Sod/ Tazobactam Sod 4.5 gm/Sodium Chloride 120 ml @ 240 mls/hr ONCE ONCE IV 05/10/18 12:30 05/10/18 12:59 DC 05/10/18 13:01 240 MLS/HR Vital Signs/I&O 05/10/18 05/10/18 10:06 15:48 Temp 97.7 Pulse 86 90 Resp 20 20 B/P (MAP) 140/73 (95) 123/65 (84) Pulse Ox 95 95 O2 Delivery OxyMask Nasal Cannula O2 Flow Rate 10.00 2.00 Capillary Refill : Less Than 3 Seconds Blood Pressure Mean: 95 Progress Note : Progress Note Respiratory therapy was consulted and provided deep suctioning resulting in evacuation of white material resembling tube feeds. This is suggestive of aspiration. Patient's respiratory status did improve after that. Given the probable aspiration, Zosyn was ordered for initial antibiotic therapy. Patient' s mental status was not recovering along with his respiratory status. CT of the head was obtained and showed no acute pathology. Case was discussed with Dr. Sena and patient's son. They both agreed that hospice is a good option for this patient. He was able to tolerate nasal cannula and was dismissed to the retirement. Dr. Sena's office will help arrange for hospice. Case was also discussed with Dr. Tripp who knew the patient from prior visit. He agrees with hospice as long-term prognosis is very poor. Diagnostic Imaging Diagonstic Imaging: Xray Plain Films/CT/US/NM/MRI: chest Comments Chest x-ray viewed by me and report reviewed. See report below: NAME: ROSALBA SMITH [facility] REC#: [id number] PT STATUS: DEP ER : 1935 PHYSICIAN: MARISOL ROSE MD ADMIT DATE: 05/10/18/ER Signed Date of Exam: 05/10/18 CHEST 1 VIEW, AP/PA ONLY INDICATION: Shortness of air and cough. TIME OF EXAM: 10:48 a.m. Correlation is made with prior study from 05/05/2018. FINDINGS: There is some patchy infiltrate in the left lung base which appears to be somewhat increased since the exam five days earlier. Subsegmental atelectasis in the right perihilar region is unchanged. There is no effusion. No pneumothorax is identified. IMPRESSION: Slight increase in left basilar infiltrate when compared with examination five days earlier. Dictated by: Dictated on workstation # [id number] Dict: 05/10/18 1100 Trans: 05/10/18 1603 Interpreted by: ROBERT DEMPSEY MD Electronically signed by: ROBERT DEMPSEY MD 05/10/18 1603 Departure Impression Primary Impression: Aspiration pneumonitis Additional Impressions: Altered mental status Qualified Codes: R41.82 - Altered mental status, unspecified Urinary tract infection Qualified Codes: N39.0 - Urinary tract infection, site not specified Hypoxia Disposition: 01 HOME, SELF-CARE Condition: Stable Departure-Patient Inst. Decision time for Depature: 15:18 Referrals: ISI SENA MD (PCP/Family) Primary Care Physician Patient Instructions: Aspiration Pneumonia Add. Discharge Instructions: Contact Dr. Sena regarding arrangements for hospice. Use oxygen via nasal cannula when necessary to keep oxygen saturations greater than [address] Sena with any further problems or concerns. Otherwise continue care as previously directed. All discharge instructions reviewed with patient and/or family. Voiced understanding. Copy Copies To 1: ISI SENA MD, JOSHUA T MD May 10, 2018 15:19
[2018-05-10 15:48] VITALS: BP 123/65
== END 2018-05-10 15:48 | disposition home or self-care (01) ==
LOC: EDUNIT# 09:56 → ER 09:57
DX: J69.0 Pneumonitis due to inhalation of food and vomit (principal); R41.82 Altered mental status, unspecified; N39.0 Urinary tract infection, site not specified; F03.90 Unspecified dementia, unspecified severity, without behavioral disturbance, psychotic disturbance, mood disturbance, and anxiety; I25.10 Atherosclerotic heart disease of native coronary artery without angina pectoris; I10 Essential (primary) hypertension; E78.00 Pure hypercholesterolemia, unspecified; E03.9 Hypothyroidism, unspecified; Z80.1 Family history of malignant neoplasm of trachea, bronchus and lung; Z82.49 Family history of ischemic heart disease and other diseases of the circulatory system; Z87.440 Personal history of urinary (tract) infections; Z87.19 Personal history of other diseases of the digestive system; Z79.82 Long term (current) use of aspirin; Z87.891 Personal history of nicotine dependence; Z98.890 Other specified postprocedural states; Z90.89 Acquired absence of other organs; Z94.7 Corneal transplant status; Z96.652 Presence of left artificial knee joint; Z95.5 Presence of coronary angioplasty implant and graft
CPT/HCPCS: 36415; 70450; 71045; 80053; 81000; 83605; 85025; 85610; 85730; 86141; 87040; 87088; 87804; 93041